=== PATIENT | female | born 1935 | race Caucasian/White ===

== ENCOUNTER 2023-10-10 19:49 | Inpatient (IN) ==
[2023-10-10 21:32] LABS: Basophils # (auto) 0.04 K/uL (0.00-0.20); Basophils % (auto) 0.5 %; Eosinophils # (auto) 0.18 K/uL (0.00-0.50); Eosinophils % (auto) 2.4 %; Hematocrit (blood only) 37.9 % (37.0-47.0); Hemoglobin 12.6 g/dl (12.0-16.0); Immature Granulocytes # (auto) 0.02 K/uL (0.01-0.20); Immature Granulocytes % (auto) 0.3 %; Lymphocytes # (auto) 2.02 K/uL (1.20-3.40); Lymphocytes % (auto) 26.4 %; Mean Corpuscular Hemoglobin 29.2 pg (25.0-34.0); Mean Corpuscular Hgb Conc 33.2 g/dL (32.0-36.0); Mean Corpuscular Volume 87.9 fL (80.0-100.0); Mean Platelet Volume 9.7 fL (9.4-12.4); Monocytes # (auto) 0.58 K/uL (0.11-0.59); Monocytes % (auto) 7.6 %; Neutrophils # (auto) 4.81 K/uL (1.40-6.50); Neutrophils % (auto) 62.8 %; Platelet Count 264 K/uL (130-400); RDW Coefficient of Variation 13.1 % (11.5-14.5); RDW Standard Deviation 42.5 fL (36.4-46.3); Red Blood Count 4.31 M/uL (4.20-5.40); White Blood Count 7.65 K/ul (4.8-10.8)
--- NOTE | 2023-10-10 21:33 | XRay Report ---
SINGLE VIEW CHEST CLINICAL HISTORY: Atypical chest pain. FINDINGS: A PA chest radiograph is obtained. No prior studies are available for comparison at the marilyn e of dictation. There are calcified mediastinal lymph nodes. The heart is enlarged noting atheroscler otic calcification of the thoracic aorta. The pulmonary vasculature is noncongested. There is mild bi basilar scarring/atelectasis. Scattered calcified granulomas are observed. The lungs and pleural spac es are otherwise clear. No pneumothorax is seen. The skeletal structures are osteopenic. The bony tho rax is grossly intact. Advanced arthritic change is noted in the shoulders. IMPRESSION: No acute cardiopulmonary abnormality is identified. ACT 112: Negative or not required by law. Electronically signed by: Nilson Abdi M.D. 10/10/2023 9:31 PM
[2023-10-10 21:51] LABS: Alanine Aminotransferase 12 U/L (7-52); Albumin Globulin Ratio 0.9 (0.9-2); Albumin Level 2.6 gm/dl (3.4-5.0); Alkaline Phosphatase 71 U/L (34-104); Anion Gap 5 (3-11); Aspartate Aminotransferase 20 U/L (13-39); BUN Creatinine Ratio 28.9 (10-20); Bilirubin,Total 0.4 mg/dl (0.2-1.0); Blood Urea Nitrogen 48 mg/dl (6-23); Calcium 8.2 mg/dl (8.6-10.3); Carbon Dioxide 27 mmol/L (21-32); Chloride 99 mmol/L (98-107); Est GFR (African American) 31.8 ml/min; Est GFR (Non-African American) 27.4 ml/min; Glucose 123 mg/dl (70-99(Fasting)); Magnesium 2.4 mg/dl (1.7-2.4); Potassium 3.9 mmol/L (3.5-5.1); Sodium 131 mmol/L (136-145); Total Protein 5.6 gm/dl (6.0-8.3)
[2023-10-10 21:57] LABS: Troponin I High Sensitivity 21.3 pg/ml (0-14)
[2023-10-10 22:12] LABS: INR 0.9 (0.9-1.1); Partial Thromboplastin Ratio 1.1; Partial Thromboplastin Time 31 Seconds (21-31); Prothrombin Time 10.3 Seconds (9.0-12.0)
--- NOTE | 2023-10-10 22:14 | Emergency Department Note ---
Impression & Plan Bilateral edema of lower extremity, Hypertension, Elevated serum creatinine, Acute kidney injury ED Provider Note NAME: BOB STEWART AGE: 88 SEX: F : 1935 ARRIVES VIA: Walk-In INFORMANT: Patient, ED PROVIDER(S): Natanael Disla MD CHIEF COMPLAINT: Leg swelling, outpatient referral MEDICAL DECISION MAKING: Patient presents due to concern for increasing lower extremity edema. Patient has been seen several times in the outpatient setting with worsening weight gain and lower extremity edema even in light of increasing the patient's diuretics. IV was established and blood work was obtained. Patient is a normal white count H&H and platelet count. Kidney function with a BUN and creatinine 40 and 1.6. Initial troponin 21 with an elevated BNP of 191. Patient was ordered IV Lasix. Patient noted to be significantly hypertensive but not extremis. The patient was ordered Nitropaste. Did initially speak with [facility] medicine service but the patient wanted to follow with [facility]. After discussing this with Dr. Michel I did speak with Dr. Lopez and the patient was admitted to the medicine service. Of note the patient did have right shoulder the left lower extremity but this is chronic and has no pain no fall denied any hip pain. Discussion w/ other healthcare providers: Dr. Michel to [facility] medicine service Dr. Lopez without any medicine service Prior /Outside records reviewed: None Differential diagnosis: Reactive airway disease, pneumonia, pneumothorax, COPD, CHF, ACS, pulmonary embolism, musculoskeletal, GERD as well as other pathologies were considered. Diagnostics, as interpreted by me: ECG: Normal sinus rhythm, rate of 68, normal intervals, normal axis no ST elevations T wave flattening in V3. Cardiac monitoring: An order was placed for continuous cardiac monitoring. The monitor shows a rate of 72 with sinus rhythm. Patient was placed on pulse oximetry Medical decision rules: None Imaging studies: I informally interpreted the patient's chest x-ray which does not show obvious pneumonia or pneumothorax with formal report to follow. HPI: Was switched from one to the other and had a doubling of her dosage and believes that she is currently taking 40 mg of torsemide daily. Patient still had worsening lower extremity edema. Patient is accompanied by her daughter she states the same. The patient has had dyspnea on exertion but denies any PND orthopnea. No increase in salt in the diet. Patient was seen in the outpatient setting by her primary care physician and referred here for further evaluation and treatment given the intractable swelling of her lower extremities even in light of increased diuretics and since then the patient had progressively worsening lower extremity edema. The patient did have PAST MEDICAL HISTORY: See Below PAST SURGICAL HISTORY: See Below SOCIAL HISTORY: See Below HOME MEDICATIONS: See Below ALLERGIES: See Below VITALS: See Below PHYSICAL EXAMINATION: GENERAL: NAD, non-toxic. Wearing glasses. BMI of 37 EYE EXAM: Normal conjunctiva. PERRL, no anisocoria and EOM's grossly intact w/o pain. OROPHARYNX: Moist mucus membranes, grossly normal dentition. NECK: Trachea midline, no stridor. Supple, no nuchal rigidity, no adenopathy, non-tender. No signs of meningismus. FROM of the neck with good chin to chest and neck extension. LUNGS: Clear to auscultation. Normal chest wall mechanics. HEART: NSR, no MRG. ABDOMEN: Abdomen soft, non-tender, no masses, no rebound or guarding. BACK: No CVA TTP. SKIN: No rashes and no bruising. UPPER EXTREMITIES: Upper extremities are grossly normal. LOWER EXTREMITIES: Grossly normal, 3+ pitting edema without any calf pain or erythema, right lower extremity slightly shorter compared to the left. NEURO EXAM: A&O x3, cranial nerves II-XII grossly intact, normal speech, moves all 4 extremities. Past Med/Surg History Medical History Hypertension Surgical History History of tonsillectomy Social History Smoking Status: Never smoker Hx Alcohol Use: No Hx Substance Use: No Preferred Language: Montenegrin Communication Ability: Effective Quarrying Manager Required: No Beliefs That Will Affect Care: None Current Living Situation: Spouse Feels Safe at Home: Yes Assistive Devices: Walker Allergies Allergies Allergy/AdvReac Type Severity Reaction Status Date / Time cephalexin Allergy Unknown Verified 10/14/23 09:34 Home Meds Home Medications Medication Instructions Recorded Confirmed Vitamin D3 5,000 unit PO DAILY 10/10/23 10/11/23 aspirin 81 mg PO DAILY 10/10/23 10/10/23 citalopram 20 mg tablet 20 mg PO DAILY 10/10/23 10/10/23 losartan 100 1 tab PO DAILY 10/10/23 10/10/23 mg-hydrochlorothiazide 25 mg tablet torsemide 20 mg tablet 40 mg PO DAILY 10/10/23 10/10/23 vitamin B complex 1 tab PO DAILY 10/10/23 10/10/23 Results & Data (ED) Vital Signs Vital Signs - 24 hr 10/10/23 19:58 Temperature 36.3 C L Temperature Source Temporal Artery Scan Pulse Rate 72 Respiratory Rate 18 Respiratory Effort / Characteristics Non-Labored Spontaneous Respiratory Depth Normal Respiratory Pattern Regular Blood Pressure 204/111 H Blood Pressure Mean 142 Blood Pressure Position Sitting Pulse Oximetry 97 Oxygen Delivery Method Room Air Sepsis Recent Fever Within 48 Hours No Sepsis New/Unexplained Change in Mental Status N/A Sepsis Action Taken by Nursing No Action Required Home Medications Current Medication List: was personally reviewed by me Laboratory Data Attestation: I reviewed the patient's lab results. 10/15/23 06:27 10/15/23 06:27 Lab Results 10/10/23 10/10/23 Range/Units 21:15 23:00 WBC 7.65 (4.8-10.8) K/ul RBC 4.31 (4.20-5.40) M/uL Hgb 12.6 (12.0-16.0) g/dl Hct 37.9 (37.0-47.0) % MCV 87.9 (80.0-100.0) fL MCH 29.2 (25.0-34.0) pg MCHC 33.2 (32.0-36.0) g/dL RDW Std Deviation 42.5 (36.4-46.3) fL RDW Coeff of Maricel 13.1 (11.5-14.5) % Plt Count 264 (130-400) K/uL MPV 9.7 (9.4-12.4) fL Immature Gran % (Auto) 0.3 % Neut % (Auto) 62.8 % Lymph % (Auto) 26.4 % Rowan % (Auto) 7.6 % Eos % (Auto) 2.4 % Baso % (Auto) 0.5 % Neut # (Auto) 4.81 (1.40-6.50) K/uL Lymph # (Auto) 2.02 (1.20-3.40) K/uL Rowan # (Auto) 0.58 (0.11-0.59) K/uL Eos # (Auto) 0.18 (0.00-0.50) K/uL Baso # (Auto) 0.04 (0.00-0.20) K/uL Immature Gran # (Auto) 0.02 (0.01-0.20) K/uL PT 10.3 (9.0-12.0) Seconds INR 0.9 (0.9-1.1) APTT 31 (21-31) Seconds PTT Ratio 1.1 Sodium 131 L (136-145) mmol/L Potassium 3.9 (3.5-5.1) mmol/L Chloride 99 (98-107) mmol/L Carbon Dioxide 27 (21-32) mmol/L Anion Gap 5 (3-11) BUN 48 H (6-23) mg/dl Creatinine 1.66 H (0.6-1.2) mg/dl Est Cr Clr Drug Dosing Not Reportable Est GFR ( Amer) 31.8 ml/min Est GFR (Non-Af Amer) 27.4 ml/min BUN/Creatinine Ratio 28.9 H (10-20) Glucose 123 H (70-99(Fasting)) mg/dl Calcium 8.2 L (8.6-10.3) mg/dl Magnesium 2.4 (1.7-2.4) mg/dl Total Bilirubin 0.4 (0.2-1.0) mg/dl AST 20 (13-39) U/L ALT 12 (7-52) U/L Alkaline Phosphatase 71 (34-104) U/L Troponin I High Sens 21.3 H 20.6 H (0-14) pg/ml B-Natriuretic Peptide 191 H (0-100) pg/ml Total Protein 5.6 L (6.0-8.3) gm/dl Albumin 2.6 L (3.4-5.0) gm/dl Globulin 3.0 (2.5-4.0) gm/dl Albumin/Globulin Ratio 0.9 (0.9-2) TSH 3.218 (0.300-4.500) uIu/ml Administered Medications Aspirin (Aspirin 81 Mg Ectab) 81 mg PO DAILY MARCOS Stop: 11/10/23 08:59 Last Admin: 10/15/23 08:18 Dose: 81 mg Documented By: Admin: 10/14/23 08:23 Dose: 81 mg Documented By: Admin: 10/13/23 08:07 Dose: 81 mg Documented By: Admin: 10/12/23 09:18 Dose: 81 mg Documented By: Admin: 10/11/23 08:55 Dose: 81 mg Documented By: MARK Citalopram Hydrobromide (Citalopram 20 Mg Tab) 20 mg PO DAILY MARCOS Stop: 11/10/23 08:59 Last Admin: 10/15/23 08:18 Dose: 20 mg Documented By: Admin: 10/14/23 08:23 Dose: 20 mg Documented By: Admin: 10/13/23 08:07 Dose: 20 mg Documented By: Admin: 10/12/23 09:18 Dose: 20 mg Documented By: Admin: 10/11/23 08:55 Dose: 20 mg Documented By: MARK Heparin Sodium (Porcine) (Heparin Sod 5,000 Unit/0.5 Ml Vial) 5,000 units SQ Q12 MARCOS Stop: 11/10/23 08:59 Last Admin: 10/15/23 08:19 Dose: 5,000 units Documented By: Admin: 10/14/23 20:21 Dose: 5,000 units Documented By: Admin: 10/14/23 08:24 Dose: 5,000 units Documented By: Admin: 10/13/23 20:41 Dose: 5,000 units Documented By: Admin: 10/13/23 08:09 Dose: 5,000 units Documented By: Admin: 10/12/23 21:52 Dose: 5,000 units Documented By: Admin: 10/12/23 09:18 Dose: 5,000 units Documented By: Admin: 10/11/23 20:50 Dose: 5,000 units Documented By: Admin: 10/11/23 08:54 Dose: 5,000 units Documented By: MARK Hydralazine HCl (Hydralazine Hcl 25 Mg Tab) 25 mg PO TID MARCOS Stop: 11/13/23 13:59 Last Admin: 10/15/23 08:19 Dose: 25 mg Documented By: Admin: 10/14/23 20:21 Dose: 25 mg Documented By: Admin: 10/14/23 14:27 Dose: 25 mg Documented By: MAYELA Labetalol HCl (Labetalol Hcl 200 Mg Tab) 200 mg PO BID MARCOS Stop: 11/14/23 08:59 Last Admin: 10/15/23 09:30 Dose: Not Given Documented By: MAYELA Pantoprazole Sodium (Pantoprazole 40 Mg Tab) 40 mg PO QAM [facility] Stop: 11/11/23 10:59 Last Admin: 10/15/23 08:18 Dose: 40 mg Documented By: Admin: 10/14/23 08:23 Dose: 40 mg Documented By: Admin: 10/13/23 08:06 Dose: 40 mg Documented By: Admin: 10/12/23 12:26 Dose: 40 mg Documented By: ROSA Prednisone (Prednisone 20 Mg Tab) 20 mg PO TID [facility] Stop: 11/12/23 13:59 Last Admin: 10/15/23 08:18 Dose: 20 mg Documented By: Admin: 10/14/23 20:21 Dose: 20 mg Documented By: Admin: 10/14/23 14:27 Dose: 20 mg Documented By: Admin: 10/14/23 08:24 Dose: 20 mg Documented By: Admin: 10/13/23 21:38 Dose: 20 mg Documented By: Admin: 10/13/23 13:58 Dose: Not Given Documented By: MAYELA Discontinued Medications Acetaminophen (Acetaminophen 500 Mg Tab) 1,000 mg PO NOW STA Stop: 10/11/23 00:58 Last Admin: 10/11/23 01:06 Dose: 1,000 mg Documented By: MEAGANS Furosemide (Furosemide 40 Mg/4 Ml Vial) 40 mg IV ONE ONE Stop: 10/10/23 22:41 Last Admin: 10/10/23 22:54 Dose: 40 mg Documented By: SERENA Furosemide (Furosemide 40 Mg/4 Ml Vial) 40 mg IV BID17 [facility] Stop: 11/10/23 08:59 Last Admin: 10/11/23 18:57 Dose: Not Given Documented By: Admin: 10/11/23 08:55 Dose: 40 mg Documented By: MARK Furosemide (Furosemide 40 Mg/4 Ml Vial) 80 mg IV BID17 [facility] Stop: 11/11/23 08:59 Last Admin: 10/12/23 17:12 Dose: 80 mg Documented By: Admin: 10/12/23 09:18 Dose: 80 mg Documented By: ROSA Furosemide (Furosemide 40 Mg/4 Ml Vial) 40 mg IV ONE ONE Stop: 10/11/23 18:13 Last Admin: 10/11/23 18:58 Dose: 40 mg Documented By: NAVDEEP Furosemide (Furosemide 40 Mg/4 Ml Vial) 80 mg IV DAILY [facility] Stop: 11/12/23 15:59 Last Admin: 10/15/23 08:22 Dose: 80 mg Documented By: Admin: 10/14/23 08:29 Dose: 80 mg Documented By: Admin: 10/13/23 18:19 Dose: 80 mg Documented By: MAYELA Hydralazine HCl (Hydralazine 10 Mg Tab) 10 mg PO NOW STA Stop: 10/11/23 00:58 Last Admin: 10/11/23 02:00 Dose: 10 mg Documented By: KEVIN Hydralazine HCl (Hydralazine Hcl 25 Mg Tab) 25 mg PO TID PRN PRN Reason: hypertention Stop: 11/10/23 08:59 Last Admin: 10/13/23 21:44 Dose: 25 mg Documented By: KAYLIN Hydralazine HCl (Hydralazine Hcl 20 Mg/Ml Vial) 10 mg IV NOW STA Stop: 10/11/23 03:50 Last Admin: 10/11/23 03:55 Dose: 10 mg Documented By: ANGIE Calcium Gluconate () 1,000 mg in 60 mls @ 240 mls/hr IV NOW STA Stop: 10/10/23 22:55 Last Infusion: 10/10/23 23:18 Dose: Infused Documented By: Admin: 10/10/23 22:54 Dose: 240 mls/hr Documented By: SERENA Labetalol HCl (Labetalol Hcl 100 Mg Tab) 100 mg PO BID [facility] Stop: 11/13/23 10:29 Last Admin: 10/15/23 08:18 Dose: 100 mg Documented By: Admin: 10/14/23 20:22 Dose: 100 mg Documented By: Admin: 10/14/23 10:46 Dose: 100 mg Documented By: MAYELA Losartan Potassium (Losartan Potassium 50 Mg Tab) 100 mg PO QAM [facility] Stop: 11/10/23 08:59 Last Admin: 10/14/23 08:23 Dose: 100 mg Documented By: Admin: 10/13/23 08:07 Dose: 100 mg Documented By: Admin: 10/12/23 09:18 Dose: 100 mg Documented By: Admin: 10/11/23 08:55 Dose: 100 mg Documented By: MARK Miscellaneous Information (Patient's Allergy Info Needs Entered) 1 each N/A NOW STA Stop: 10/11/23 03:52 Last Admin: 10/11/23 05:02 Dose: Not Given Documented By: ANGIE Nitroglycerin (Nitroglycerin 2% Ointment 30gm Tube) 0.5 inch EXT NOW ONE Stop: 10/10/23 22:41 Last Admin: 10/10/23 22:54 Dose: 0.5 inch Documented By: SERENA Ondansetron HCl (Ondansetron Inj 2 Mg/Ml 2 Ml Vial) Confirm Administered Dose 4 mg .ROUTE .STK-MED ONE Stop: 10/11/23 04:48 Last Admin: 10/11/23 04:52 Dose: 4 mg Documented By: ANGIE Potassium Chloride (Potassium Chloride Crtab 20 Meq Tabcr) 40 meq PO NOW STA Stop: 10/11/23 04:50 Last Admin: 10/11/23 08:55 Dose: 40 meq Documented By: MARK Prednisone (Prednisone 20 Mg Tab) 40 mg PO DAILY [facility] Stop: 11/11/23 10:59 Last Admin: 10/13/23 08:07 Dose: 40 mg Documented By: Admin: 10/12/23 12:26 Dose: 40 mg Documented By: ROSA Imaging Data Radiologist's Impression: Chest X-Ray 10/10/23 20:04 SINGLE VIEW CHEST CLINICAL HISTORY: Atypical chest pain. FINDINGS: A PA chest radiograph is obtained. No prior studies are available for comparison at the time of dictation. There are calcified mediastinal lymph nodes. The heart is enlarged noting atherosclerotic calcification of the thoracic aorta. The pulmonary vasculature is noncongested. There is mild bibasilar scarring/atelectasis. Scattered calcified granulomas are observed. The lungs and pleural spaces are otherwise clear. No pneumothorax is seen. The skeletal structures are osteopenic. The bony thorax is grossly intact. Advanced arthritic change is noted in the shoulders. IMPRESSION: No acute cardiopulmonary abnormality is identified. ACT 112: Negative or not required by law. Electronically signed by: Nilson Abdi M.D. 10/10/2023 9:31 PM Discharge Plan Visit Data Chief Complaint: Swelling/Edema to Extremity Stated Complaint: FLUID RETENTION ED Provider: Natanael Disla Discharge Problem: Bilateral edema of lower extremity, Hypertension, Elevated serum creatinine, Acute kidney injury Patient Disposition: Admitted As Inpatient Discharge Instructions Interventions: ED Discharge Assessment Last Done: 10/11/23 03:12 Discharge Problem: Hypertension Qualifiers: Hypertension type: unspecified Qualified Code(s): I10 - Essential (primary) hypertension
[2023-10-10] MEDS: CALCIUM GLUCONATE 1,000 MG/60 ML BAG IV STA (22:54)
[2023-10-10] MEDS: NITROGLYCERIN 2% OINTMENT 30GM TUBE EXT ONE (22:54)
[2023-10-10] MEDS: FUROSEMIDE 40 MG/4 ML VIAL IV ONE (22:54)
[2023-10-10 23:35] LABS: Troponin I High Sensitivity 20.6 pg/ml (0-14)
--- NOTE | 2023-10-11 01:05 | History & Physical Report ---
Date of Service October 11, 2023 Assessment & Plan (1) Hypertension: Plan: Patient with markedly elevated blood pressure. She is compliant with her home medications - HCTZ, Losartan and most recently Torsemide. No prior visits to compare blood pressure trend but she has been well over 200mmHg since being here. No report of chest pain, SOB, abdominal pain, numbness/weakness. She developed a ROMERO after placement of Nitro. Uncertain if patient's blood pressure is so poorly controlled at baseline. More likely an acute changes. -Admit to medical with telemetry -Continue home Losartan 100mg po daily -Will hold HCTZ -Lasix 40mg IV BID -Hydralazine PRN -Check UA (2) Edema: Plan: Patient with anasarca - edema of legs, thighs, abdominal wall as well as swelling of her hands and face. She has low serum Albumin at 2.6. Cr=1.66, unknown baseline -Check UA - ?nephrotic syndrome causing patient's anasarca, markedly elevated blood pressure and low serum protein and albumin? -Check urine protein and Cr -Check lipid panel -Check TSH -Check 2D echo -Diuresis with Lasix 40mg IV BID - may need to increase this -Monitor I/Os -Bladder scan and straight cath as needed -Monitor daily weights History of Present Illness Chief Complaint: swelling Primary Care Provider: NO PCP Catrina Alvarez is an 88yo female with history of hypertension presenting with progressive edema unresponsive to PO diuretic. Patient reports that her symptoms began around 09/26/23 with some swelling of her feet and ankles. She had a prescription for Lasix PRN which, prior to this, she did not use routinely. She saw her PCP for this complaint on 09/30/22 and start ed taking her Lasix daily for the swelling but did not note an increase in urine output or a decrease in swelling. She followed up with her PCP 1 week later and her diuretic was changed to Torsemide 20mg po daily. She did not notice any improvement so she saw her PCP again on 10/08/23 and was given a dose of IM Lasix. She still has not had an increase in UOP and her edema has persisted. She has gained approximately 16# since 09/26/23. She does note that her weight has been stable rather than increasing over the last several days. She reports some TRACY as well as edema. Otherwise denies fever, chills, cough, chest pain, palpitations or orthopnea. She feels severe edema in her legs as well as thighs, arms, hands and face. She reports foamy urine over the last several days as well. She sometimes has to strain to urinate and has some incontinence at night. In the ER she is afebrile, hypertensive Home Medications Medication Instructions Recorded Confirmed Type Vitamin D3 5,000 unit 10/10/23 History aspirin 81 mg PO DAILY 10/10/23 10/10/23 History citalopram 20 mg tablet 20 mg PO DAILY 10/10/23 10/10/23 History losartan 100 1 tab PO DAILY 10/10/23 10/10/23 History mg-hydrochlorothiazide 25 mg tablet torsemide 20 mg tablet 40 mg PO DAILY 10/10/23 10/10/23 History vitamin B complex 1 tab PO DAILY 10/10/23 10/10/23 History Past Med/Surg History Medical History (Updated 10/11/23 @ 04:02 by Melita Lopez DO) Hypertension Surgical History (Updated 10/11/23 @ 04:00 by Melita Lopez DO) History of tonsillectomy Social History Smoking Status: Never smoker Hx Alcohol Use: No Hx Substance Use: No Preferred Language: Romanian Communication Ability: Effective Seat Mender Required: No Beliefs That Will Affect Care: None Current Living Situation: Spouse Other Information That Helps Us Care for You: No Feels Safe at Home: Yes Safety Concerns: Feels Safe At This Time Assistive Devices: Walker Review of Systems Review of Systems: All systems reviewed & are unremarkable except as noted in HPI & below Physical Exam Physical Exam: General: patient resting comfortably, NAD, non-toxic in appearance, AA&O x 4 Skin: warm, dry, intact, no rashes or lesions HEENT: NC/AT, PERRL, EOMI, anicteric sclera, conjunctiva without injection, external ear normal to inspection and nontender, nares patent, moist mucus membranes, dentition intact, no oropharyngeal lesions, neck supple, trachea midline, no LAD, no thyromegaly, +JVD noted bilaterally Heart: +S1/S2, regular, no m/r/g Lungs: equal air entry bilaterally, no rales/rhonchi/wheezes Abd: +BS, soft, NT/ND, no masses/organomegaly/ascites, abdominal hernia - nontender Ext: warm, 2+ pulses in UE/LE bilaterally, no clubbing/cyanosis - 3+ pitting edema of hands, thighs, abdominal wall Neuro: nonfocal, patient AA&O x 4, speech intact, no facial droop, moving all extremities on command with equal strength 5/5 Results & Data Results & Data Vital Signs (Past 12 Hours) Vital Signs Temp Pulse Pulse Resp BP BP Pulse Ox 10/10/23 23:40 67 11 L 96 10/10/23 23:30 69 13 210/99 H 97 10/10/23 23:30 69 13 97 10/10/23 23:24 70 21 233/100 H 98 10/10/23 23:24 70 21 98 10/10/23 23:20 66 14 96 10/10/23 23:10 66 12 97 10/10/23 23:00 80 15 218/106 H 96 10/10/23 23:00 80 15 96 10/10/23 22:50 66 13 98 10/10/23 22:43 66 18 96 10/10/23 22:43 65 18 228/107 H 97 10/10/23 22:42 228/107 H 10/10/23 22:42 72 18 97 10/10/23 22:42 66 10/10/23 22:41 218/101 H 10/10/23 22:41 72 14 10/10/23 19:58 36.3 C L 72 18 204/111 H 97 O2 Del Method 10/10/23 23:40 10/10/23 23:30 10/10/23 23:30 10/10/23 23:24 10/10/23 23:24 10/10/23 23:20 10/10/23 23:10 10/10/23 23:00 10/10/23 23:00 10/10/23 22:50 10/10/23 22:43 Room Air 10/10/23 22:43 Room Air 10/10/23 22:42 10/10/23 22:42 10/10/23 22:42 10/10/23 22:41 10/10/23 22:41 10/10/23 19:58 Room Air Laboratory Results Laboratory Results WBC 7.65 K/ul (4.8-10.8) 10/10/23 21:15 RBC 4.31 M/uL (4.20-5.40) 10/10/23 21:15 Hgb 12.6 g/dl (12.0-16.0) 10/10/23 21:15 Hct 37.9 % (37.0-47.0) 10/10/23 21:15 MCV 87.9 fL (80.0-100.0) 10/10/23 21:15 MCH 29.2 pg (25.0-34.0) 10/10/23 21:15 MCHC 33.2 g/dL (32.0-36.0) 10/10/23:15 RDW Std Deviation 42.5 fL (36.4-46.3) 10/10/23 21:15 RDW Coeff of Maricel 13.1 % (11.5-14.5) 10/10/23 21:15 Plt Count 264 K/uL (130-400) 10/10/23 21:15 MPV 9.7 fL (9.4-12.4) 10/10/23 21:15 Immature Gran % (Auto) 0.3 % 10/10/23 21:15 Neut % (Auto) 62.8 % 10/10/23 21:15 Lymph % (Auto) 26.4 % 10/10/23 21:15 [place] % (Auto) 7.6 % 10/10/23 21:15 Eos % (Auto) 2.4 % 10/10/23:15 Baso % (Auto) 0.5 % 10/10/23:15 Neut # (Auto) 4.81 K/uL (1.40-6.50) 10/10/23 21:15 Lymph # (Auto) 2.02 K/uL (1.20-3.40) 10/10/23 21:15 [place] # (Auto) 0.58 K/uL (0.11-0.59) 10/10/23 21:15 Eos # (Auto) 0.18 K/uL (0.00-0.50) 10/10/23 21:15 Baso # (Auto) 0.04 K/uL (0.00-0.20) 10/10/23 21:15 Immature Gran # (Auto) 0.02 K/uL (0.01-0.20) 10/10/23 21:15 PT 10.3 Seconds (9.0-12.0) 10/10/23 21:15 INR 0.9 (0.9-1.1) 10/10/23 21:15 APTT 31 Seconds (21-31) 10/10/23 21:15 PTT Ratio 1.1 10/10/23 21:15 Sodium 131 mmol/L (136-145) L 10/10/23 21:15 Potassium 3.9 mmol/L (3.5-5.1) 10/10/23 21:15 Chloride 99 mmol/L (98-107) 10/10/23 21:15 Carbon Dioxide 27 mmol/L (21-32) 10/10/23 21:15 Anion Gap 5 (3-11) 10/10/23 21:15 BUN 48 mg/dl (6-23) H 10/10/23 21:15 Creatinine 1.66 mg/dl (0.6-1.2) H 10/10/23 21:15 Est Cr Clr Drug Dosing Not Reportable 10/10/23 21:15 Est GFR ( Amer) 31.8 ml/min 10/10/23 21:15 Est GFR (Non-Af Amer) 27.4 ml/min 10/10/23 21:15 BUN/Creatinine Ratio 28.9 (10-20) H 10/10/23 21:15 Glucose 123 mg/dl (70-99(Fasting)) H 10/10/23 21:15 Calcium 8.2 mg/dl (8.6-10.3) L 10/10/23 21:15 Magnesium 2.4 mg/dl (1.7-2.4) 10/10/23 21:15 Total Bilirubin 0.4 mg/dl (0.2-1.0) 10/10/23 21:15 AST 20 U/L (13-39) 10/10/23 21:15 ALT 12 U/L (7-52) 10/10/23 21:15 Alkaline Phosphatase 71 U/L (34-104) 10/10/23 21:15 Troponin I High Sens 20.6 pg/ml (0-14) H 10/10/23 23:00 B-Natriuretic Peptide 191 pg/ml (0-100) H 10/10/23 21:15 Total Protein 5.6 gm/dl (6.0-8.3) L 10/10/23 21:15 Albumin 2.6 gm/dl (3.4-5.0) L 10/10/23 21:15 Globulin 3.0 gm/dl (2.5-4.0) 10/10/23 21:15 Albumin/Globulin Ratio 0.9 (0.9-2) 10/10/23 21:15 TSH 3.218 uIu/ml (0.300-4.500) 10/10/23 23:00 Impressions Chest X-Ray 10/10/23 20:04 SINGLE VIEW CHEST CLINICAL HISTORY: Atypical chest pain. FINDINGS: A PA chest radiograph is obtained. No prior studies are available for comparison at the time of dictation. There are calcified mediastinal lymph nodes. The heart is enlarged noting atherosclerotic calcification of the thoracic aorta. The pulmonary vasculature is noncongested. There is mild bibasilar scarring/atelectasis. Scattered calcified granulomas are observed. The lungs and pleural spaces are otherwise clear. No pneumothorax is seen. The skeletal structures are osteopenic. The bony thorax is grossly intact. Advanced arthritic change is noted in the shoulders. IMPRESSION: No acute cardiopulmonary abnormality is identified. ACT 112: Negative or not required by law. Electronically signed by: Nilson Abdi M.D. 10/10/2023 9:31 PM PG Care Time/CCT Total # of Minutes Spent Total Time Spent with Patient: Total time spent is greater than 50% in coordination of care (as documented) at patient's floor/unit and/or counseling patient: Coding Level of Care Code 50744 INT INP/OBS CARE 2/55MIN Diagnoses Hypertension I10 Edema R60.9
[2023-10-11] MEDS: ACETAMINOPHEN 500 MG TAB PO STA (01:06)
[2023-10-11] MEDS: hydrALAZINE 10 MG TAB PO STA (02:00)
[2023-10-11 03:55] LABS: Thyroid Stimulating Hormone 3.218 uIu/ml (0.300-4.500)
[2023-10-11] MEDS: hydrALAZINE HCL 20 MG/ML VIAL IV STA (03:55)
[2023-10-11 04:39] LABS: BUN Creatinine Ratio 32.7 (10-20); Calcium 8.2 mg/dl (8.6-10.3); Chol HDL Ratio 3.8 (0-5); Creatinine Clr Calc Pharmacy 28.7 ml/min; Est GFR (African American) 34.3 ml/min; Est GFR (Non-African American) 29.6 ml/min; Potassium 3.4 mmol/L (3.5-5.1)
[2023-10-11] MEDS ORDERED: ONDANSETRON INJ 2 MG/ML 2 ML VIAL IV PRN (04:42)
[2023-10-11 04:47] LABS: Appearance Urine Clear (Clear); Bacteria Urine Automated Negative (Negative); Bilirubin Urine Negative (Negative); Blood Urine 2+ (Negative); Color Urine Yellow; Epithelial Cell Urine Auto 20-30 /lpf (0-5); Glucose Urine UA Negative (Negative); Ketones Urine Negative (Negative); Leukocyte Esterase Urine 1+ (Negative); Nitrite Urine Negative (Negative); Protein Urine 4+ (Negative); RBC Urine Automated >30 /hpf (0-4); Urobilinogen Urine Negative (Negative); pH Urine 6.5 (4.5-7.5)
[2023-10-11] MEDS: ONDANSETRON INJ 2 MG/ML 2 ML VIAL ONE (04:52)
[2023-10-11] MEDS: Patient's ALLERGY Info needs ENTERED STA (05:02)
[2023-10-11] MEDS: HEPARIN SOD 5,000 UNIT/0.5 ML VIAL SQ SCH (08:54)
[2023-10-11] MEDS: CITALOPRAM 20 MG TAB PO SCH (08:55)
[2023-10-11] MEDS: LOSARTAN POTASSIUM 50 MG TAB PO SCH (08:55)
[2023-10-11] MEDS: ASPIRIN 81 MG ECTAB PO SCH (08:55)
[2023-10-11] MEDS: POTASSIUM CHLORIDE CRTAB 20 MEQ TABCR PO STA (08:55)
[2023-10-11] MEDS: FUROSEMIDE 40 MG/4 ML VIAL IV SCH (08:55)
--- NOTE | 2023-10-11 11:48 | Electrocardiogram Report ---
Test Reason : Blood Pressure : / mmHG Vent. Rate : 068 BPM Atrial Rate : 068 BPM P-R Int : 158 ms QRS Dur : 076 ms QT Int : 390 ms P-R-T Axes : -25 010 030 degrees QTc Int : 414 ms Normal sinus rhythm Poor R wave progression, consider anterior FL vs. lead placement vs. LVH Abnormal ECG No previous ECGs available Confirmed by Jeff Jose ([id number]) on 10/11/2023 11:47:47 AM Referred By: REFERRED SELF Confirmed By:Jeff Jose
--- NOTE | 2023-10-11 12:04 | Ultrasound Report ---
ULTRASOUND KIDNEYS AND BLADDER CLINICAL HISTORY: Nephrotic syndrome. COMPARISON STUDY: No prior TECHNIQUE: Real-time, grayscale, and color flow sonography of the kidneys and bladder is performed. I mages are reviewed in the transverse and longitudinal planes. FINDINGS: Kidneys: The kidneys demonstrate mild cortical atrophy. Echotexture is normal. The right kidney measu res 10.3 cm in length and the left kidney measures 10.4 cm in length. There is no hydronephrosis. No shadowing renal calculi are identified. There is no sonographic evidence of contour deforming renal mass lesion. No perinephric fluid is identified. Bladder: The bladder is largely decompressed and grossly unremarkable. Bilateral ureteral jets were s een. IMPRESSION: 1. The kidneys demonstrated cortical atrophy and are without hydronephrosis. 2. The bladder is decompressed and grossly unremarkable. ACT 112: Negative or not required by law. Electronically signed by: Nilsno Abdi M.D. 10/11/2023 12:03 PM
--- OUTSIDE RECORDS SUMMARY | 2023-10-11 13:11 | External Medical Summary | Continuity of Care Document ---
Author Name Unknown Organization [facility] Address [address], [place] [address] Phone [phone] Problems Active Problems Provider Date Essential hypertension Dawson Almodovar DO Onset: 02/19/2018 Osteoarthritis Onset: 0 Bladder muscle dysfunction - overactive Onset: Gastroesophageal reflux disease Dawson Almodovar DO Onset: 02/19/2018 Social History Type Date Description Comments Sex Unknown Tobacco Use Reviewed: 09/06/23 Never Smoked Cigarette s Smoking Status Reviewed: 10/10/23 Never Smoked Cigaret pretty Tobacco Use Reviewed: 09/06/23 Never Smoked Cigars Tobacco Use Reviewed: 09/06/23 Never Smoked A Pipe Smokeless Tobacco 09/06/2023 Never Used Smokeless To bacco ETOH Use Denies alcohol use Recreational Drug Use Denies Drug Use Allergies and adverse reactions Active Allergies Criticality Reaction | Severity Comments Date Cephalexin Unable to assess criticality 03/20/2021 Inactive Allergies NKDA Unable to assess criticality 02/19/2018 Medications Active Medications SIG Qnty Indications Order ing Provider Date [id number] Tablets 2 tablet by mouth daily for next 2 days 30tabs R60.0 THADDEUS Ledbetter 10/02/2023 Multi + [place]-3 Adult GummiesChewtabs 1 by mouth every day Dawson Almodovar DO 08/08/2022 Vitamin B ComplexTablets 1 by mouth every day Dawson Almodovar DO 08/08/2022 Losartan Potassium/Hydrochlorothi [id number] Tablets 1 by mouth every day 90tabs I10 Dawson Almodovar DO 03/21/2020 Juice Plus Fibre` Dawson Almodovar DO 02/19/2018 Aspirin Adult Low [id number] Tablets DR 1 by mouth every day Unknown Citalopram [id number] Tablets 1 by mouth every day 90tabs F41.1 Dawson Almodovar, DO Vitamin D3 Maximum [id number] (5000 Ut) Capsules 1 by mouth once daily Unknown Medications Administered in Office Medication SIG Qnty Indications Ordering Provider Date Injection Furosemide To 20 M G (Lizette Oconnell MD)Injection THADDEUS Ferrer 10/08/2023 Immunizations CPT Code Status Date Vaccine Lot # [id number] Given 07/14/2009 Pneumococcal Vaccine/Pneu movax 23 30385 Refused 09/06/2023 Sarscov2 Vaccin e 50 mcg/0.5 ML For Im Use 12 Yrs And Older 14017 Refused 09/06/2023 Pneumococcal Conjugate-Pr evnar 20 66140 Refused 10/19/2022 Shingrix 96611 Refused 08/08/2022 Pneumococcal Conjugate-Pr evnar 20 16405 Refused 08/08/2022 Influenza Vac, Split, Preservative Free High Dose Age 65 & > 63881 Refused 04/20/2022 Moderna Sars-Co v-2 (Cov-19) vacc,100 mcg/ 0.5 mL 12Y+EMR Doc Only 27461 Refused 10/16/2021 Influenza Virus Vaccine, Quadrivalent (Cciiv4), Derived From Cell 79862 Refused 10/16/2021 Shingrix 03519 Refused 10/16/2021 Pneumococcal Conjugate-Pr evnar 13 61302 Refused 03/20/2021 Pfizer Sars-Cov -2 (Cov-19) vacc 30mcg/0.3ML 12Y+ EMR Doc Only 01486 Refused 04/17/2019 Influenza Vacci ne, Inactivated, Subunit, Adjuvanted, For Intrmusc 07113 Refused 01/29/2019 Tdap (Tetanus, diphtheria & acel. pertussis) Adacel or Boostrix 14069 Refused 01/29/2019 Pneumococcal Conjugate-Pr evnar 13 Vital Signs Date Vital Result Comment 10/10/2023 3:42pm BP Systolic 180 mmHg BP Diastolic 100 mmHg Body Temperature 97.8 F Heart Rate 72 /min Respiratory Rate 18 /min Weight 221.31 lb Weight 100.387 kg O2 % BldC Oximetry 99 % 10/08/2023 3:03pm BP Systolic 180 mmHg BP Diastolic 90 mmHg BP Systolic Recheck 156 mmHg BP Diastolic Recheck 86 mmHg Body Temperature 98.1 F Heart Rate 76 /min Respiratory Rate 20 /min Weight 221.00 lb Weight 100.246 kg O2 % BldC Oximetry 98 % Results Test Acquired Date Facility Test Result H/L Range N ote Laboratory test finding 10/02/2023 [facility] [address] [place] [address] [phone] BNP 140.0 pg/mL High 0.0-100.0 BMP 10/02/2023 [facility] [address] [place] [address] [phone] Glucose 119 mg/dL High 70-110 1 BUN 45 mg/dL High 6-25 Creatinine 1.2 mg/dL 0.5-1.2 Sodium 136 mEq/L 135-145 Potassium 4.7 mEq/L 3.5-5.0 Chloride 102 mEq/L 95-107 Co-2 28 mEq/L 24-31 Calcium 8.6 mg/dL 8.5-10.6 GFR 45 ML/MIN/1.73SQM Low >60 BMP 09/05/2023 [facility] [address] [place] [address] [phone] Glucose 88 mg/dL 70-110 BUN 23 mg/dL 6-25 Creatinine 0.8 mg/dL 0.5-1.2 Sodium 138 mEq/L 135-145 Potassium 4.1 mEq/L 3.5-5.0 Chloride 100 mEq/L 95-107 Co-2 29 mEq/L 24-31 Calcium 9.4 mg/dL 8.5-10.6 GFR 72 ML/MIN/1.73SQM >60 1 STAT RESULTS CALLED AND FAXED TO GALILEO Berman AT 9:48 ON 10/03/23 WK Procedures Date Code Description Status 10/08/2023 68745 Electrocardiogram Complete C ompleted 10/08/2023 J1940 Injection Furosemide To 20 M G (Lizette Oconnell MD) Completed 10/02/2023 73096 Venipuncture Routine Complet ed 09/30/2023 01702 Manual [employer] Operating Engineer 1/> Area 15 Min Each Region Completed 09/30/2023 38202 Therapy Proc, Neuromuscular Reeducation Of Movement Completed 09/30/2023 84877 Therapy Proc 1/> Area 15Min Ea Completed 09/30/2023 96562 Hot/Cold Pack Completed 09/27/2023 58636 Therapy Proc 1/> Area 15Min Ea Completed 09/27/2023 02906 Hot/Cold Pack Completed 09/27/2023 44495 Therapy Proc, Neuromuscular Reeducation Of Movement Completed 09/27/2023 76727 Manual [employer] Operating Engineer 1/> Area 15 Min Each Region Completed 09/27/2023 16864 Therapeutic Activities Direc t, Each 15 Minutes Completed 09/24/2023 76973 Therapeutic Activities Direc t, Each 15 Minutes Completed 09/24/2023 89721 Manual [employer] Operating Engineer 1/> Area 15 Min Each Region Completed 09/24/2023 43159 Therapy Proc, Neuromuscular Reeducation Of Movement Completed 09/24/2023 65400 Therapy Proc 1/> Area 15Min Ea Completed 09/24/2023 08564 Hot/Cold Pack Completed 09/20/2023 97374 Manual Ship [employer] Operating Engineer 1/> Area 15 Min Each Region Completed 09/20/2023 76643 Hot/Cold Pack Completed 09/20/2023 59309 Therapy Proc 1/> Area 15Min Ea Completed 09/20/2023 22723 Therapy Proc, Neuromuscular Reeducation Of Movement Completed 09/20/2023 66443 Therapeutic Activities Direc t, Each 15 Minutes Completed 09/16/2023 92675 Therapeutic Activities Direc t, Each 15 Minutes Completed 09/16/2023 30698 Manual Ship [employer] Operating Engineer 1/> Area 15 Min Each Region Completed 09/16/2023 36073 Therapy Proc, Neuromuscular Reeducation Of Movement Completed 09/16/2023 79310 Therapy Proc 1/> Area 15Min Ea Completed 09/16/2023 25563 Hot/Cold Pack Completed 09/09/2023 61925 Therapeutic Activities Direc t, Each 15 Minutes Completed 09/09/2023 83162 Manual Ship [employer] Operating Engineer 1/> Area 15 Min Each Region Completed 09/09/2023 13210 Therapy Proc, Neuromuscular Reeducation Of Movement Completed 09/09/2023 30561 Therapy Proc 1/> Area 15Min Ea Completed 09/09/2023 75307 Hot/Cold Pack Completed 09/06/2023 1101F PT SCR Future Fall Risk, No Fall Or 1 W/Out Injury Completed 09/05/2023 32025 Venipuncture Routine Complet ed 09/02/2023 63307 Therapy Proc 1/> Area 15Min Ea Completed 09/02/2023 54337 Hot/Cold Pack Completed 09/02/2023 36926 Therapy Proc, Neuromuscular Reeducation Of Movement Completed 09/02/2023 04627 Manual Ship [employer] Operating Engineer 1/> Area 15 Min Each Region Completed 09/02/2023 64137 Therapeutic Activities Direc t, Each 15 Minutes Completed 08/30/2023 83262 Therapeutic Activities Direc t, Each 15 Minutes Completed 08/30/2023 51626 Manual Ship [employer] Operating Engineer 1/> Area 15 Min Each Region Completed 08/30/2023 55499 Therapy Proc, Neuromuscular Reeducation Of Movement Completed 08/30/2023 56520 Therapy Proc 1/> Area 15Min Ea Completed 08/30/2023 60687 Hot/Cold Pack Completed 08/27/2023 37714 Therapy Proc 1/> Area 15Min Ea Completed 08/27/2023 82790 Hot/Cold Pack Completed 08/27/2023 36917 Therapy Proc, Neuromuscular Reeducation Of Movement Completed 08/27/2023 40313 Manual Ship [employer] Operating Engineer 1/> Area 15 Min Each Region Completed 08/27/2023 80363 Therapeutic Activities Direc t, Each 15 Minutes Completed 08/23/2023 98610 Therapeutic Activities Direc t, Each 15 Minutes Completed 08/23/2023 52761 Manual [employer] Operating Engineer 1/> Area 15 Min Each Region Completed 08/23/2023 24171 Therapy Proc, Neuromuscular Reeducation Of Movement Completed 08/23/2023 16273 Therapy Proc 1/> Area 15Min Ea Completed 08/23/2023 02415 Hot/Cold Pack Completed 08/20/2023 66900 Therapeutic Activities Direc t, Each 15 Minutes Completed 08/20/2023 72515 Hot/Cold Pack Completed 08/20/2023 44873 Therapy Proc 1/> Area 15Min Ea Completed 08/20/2023 92291 Therapy Proc, Neuromuscular Reeducation Of Movement Completed 08/20/2023 53240 Manual Ship [employer] Operating Engineer 1/> Area 15 Min Each Region Completed 08/16/2023 85001 Therapeutic Activities Direc t, Each 15 Minutes Completed 08/16/2023 60380 Manual [employer] Operating Engineer 1/> Area 15 Min Each Region Completed 08/16/2023 83768 Therapy Proc, Neuromuscular Reeducation Of Movement Completed 08/16/2023 43433 Therapy Proc 1/> Area 15Min Ea Completed 08/16/2023 80586 Hot/Cold Pack Completed 08/12/2023 88184 Therapeutic Activities Direc t, Each 15 Minutes Completed 08/12/2023 71015 Manual Ship [employer] Operating Engineer 1/> Area 15 Min Each Region Completed 08/12/2023 52216 Therapy Proc, Neuromuscular Reeducation Of Movement Completed 08/12/2023 86956 Therapy Proc 1/> Area 15Min Ea Completed 08/12/2023 77920 Hot/Cold Pack Completed 08/09/2023 77119 Therapeutic Activities Direc t, Each 15 Minutes Completed 08/09/2023 11708 Hot/Cold Pack Completed 08/09/2023 68974 Therapy Proc 1/> Area 15Min Ea Completed 08/09/2023 06282 Manual Ship [employer] Operating Engineer 1/> Area 15 Min Each Region Completed 08/09/2023 19307 Therapy Proc, Neuromuscular Reeducation Of Movement Completed 08/05/2023 84067 Manual Ship [employer] Operating Engineer 1/> Area 15 Min Each Region Completed 08/05/2023 71906 Therapy Proc, Neuromuscular Reeducation Of Movement Completed 08/05/2023 11359 Hot/Cold Pack Completed 08/05/2023 14489 Therapeutic Activities Direc t, Each 15 Minutes Completed 08/02/2023 42301 Hot/Cold Pack Completed 08/02/2023 61122 Therapy Proc 1/> Area 15Min Ea Completed 08/02/2023 06554 Therapy Proc, Neuromuscular Reeducation Of Movement Completed 08/02/2023 46101 Manual Ship [employer] Operating Engineer 1/> Area 15 Min Each Region Completed 08/02/2023 67772 Therapeutic Activities Direc t, Each 15 Minutes Completed 07/29/2023 43670 Therapeutic Activities Direc t, Each 15 Minutes Completed 07/29/2023 70804 Manual Ship [employer] Operating Engineer 1/> Area 15 Min Each Region Completed 07/29/2023 78782 Therapy Proc, Neuromuscular Reeducation Of Movement Completed 07/29/2023 78017 Therapy Proc 1/> Area 15Min Ea Completed 07/29/2023 70362 Hot/Cold Pack Completed 07/22/2023 78516 Manual Ship [employer] Operating Engineer 1/> Area 15 Min Each Region Completed 07/22/2023 33687 Hot/Cold Pack Completed 07/22/2023 14512 Therapy Proc 1/> Area 15Min Ea Completed 07/22/2023 27073 Therapy Proc, Neuromuscular Reeducation Of Movement Completed 07/22/2023 13181 Therapeutic Activities Direc t, Each 15 Minutes Completed 07/19/2023 70893 Therapeutic Activities Direc t, Each 15 Minutes Completed 07/19/2023 04752 Manual Ship [employer] Operating Engineer 1/> Area 15 Min Each Region Completed 07/19/2023 12036 Therapy Proc, Neuromuscular Reeducation Of Movement Completed 07/19/2023 53588 Therapy Proc 1/> Area 15Min Ea Completed 07/19/2023 39296 Hot/Cold Pack Completed 07/15/2023 99864 Therapeutic Activities Direc t, Each 15 Minutes Completed 07/15/2023 74886 Manual Ship [employer] Operating Engineer 1/> Area 15 Min Each Region Completed 07/15/2023 99366 Therapy Proc, Neuromuscular Reeducation Of Movement Completed 07/15/2023 60792 Hot/Cold Pack Completed 07/12/2023 69467 Hot/Cold Pack Completed 07/12/2023 04592 Therapy Proc 1/> Area 15Min Ea Completed 07/12/2023 52668 Manual [employer] Operating Engineer 1/> Area 15 Min Each Region Completed 07/12/2023 96892 Therapeutic Activities Direc t, Each 15 Minutes Completed 07/12/2023 34692 Therapy Proc, Neuromuscular Reeducation Of Movement Completed 07/10/2023 97102 Therapeutic Activities Direc t, Each 15 Minutes Completed 07/10/2023 61325 Manual [employer] Operating Engineer 1/> Area 15 Min Each Region Completed 07/10/2023 89747 Therapy Proc, Neuromuscular Reeducation Of Movement Completed 07/10/2023 46440 Therapy Proc 1/> Area 15Min Ea Completed 07/10/2023 50619 Hot/Cold Pack Completed 07/08/2023 00888 Therapeutic Activities Direc t, Each 15 Minutes Completed 07/08/2023 63467 Manual Ship [employer] Operating Engineer 1/> Area 15 Min Each Region Completed 07/08/2023 11447 Therapy Proc, Neuromuscular Reeducation Of Movement Completed 07/08/2023 00363 Therapy Proc 1/> Area 15Min Ea Completed 07/08/2023 47610 Hot/Cold Pack Completed 07/05/2023 42003 Hot/Cold Pack Completed 07/05/2023 72808 Therapy Proc 1/> Area 15Min Ea Completed 07/05/2023 47110 Manual Ship [employer] Operating Engineer 1/> Area 15 Min Each Region Completed 07/05/2023 28715 Therapeutic Activities Direc t, Each 15 Minutes Completed 07/05/2023 80054 Therapy Proc, Neuromuscular Reeducation Of Movement Completed 07/03/2023 04471 Therapeutic Activities Direc t, Each 15 Minutes Completed 07/03/2023 08395 Manual [employer] Operating Engineer 1/> Area 15 Min Each Region Completed 07/03/2023 60605 Therapy Proc, Neuromuscular Reeducation Of Movement Completed 07/03/2023 14759 Therapy Proc 1/> Area 15Min Ea Completed 07/03/2023 09001 Hot/Cold Pack Completed 07/01/2023 25434 Therapy Proc, Neuromuscular Reeducation Of Movement Completed 07/01/2023 16375 Hot/Cold Pack Completed 07/01/2023 12145 Therapy Proc 1/> Area 15Min Ea Completed 07/01/2023 64531 Manual [employer] Operating Engineer 1/> Area 15 Min Each Region Completed 07/01/2023 82082 Therapeutic Activities Direc t, Each 15 Minutes Completed 06/28/2023 81241 Therapeutic Activities Direc t, Each 15 Minutes Completed 06/28/2023 08134 Manual [employer] Operating Engineer 1/> Area 15 Min Each Region Completed 06/28/2023 91579 Therapy Proc, Neuromuscular Reeducation Of Movement Completed 06/28/2023 49436 Therapy Proc 1/> Area 15Min Ea Completed 06/24/2023 71078 Therapeutic Activities Direc t, Each 15 Minutes Completed 06/24/2023 42406 Hot/Cold Pack Completed 06/24/2023 15244 Therapy Proc 1/> Area 15Min Ea Completed 06/24/2023 32087 Manual [employer] Operating Engineer 1/> Area 15 Min Each Region Completed 06/24/2023 88094 Therapy Proc, Neuromuscular Reeducation Of Movement Completed 06/21/2023 11578 Therapeutic Activities Direc t, Each 15 Minutes Completed 06/21/2023 71831 Manual Ship [employer] Operating Engineer 1/> Area 15 Min Each Region Completed 06/21/2023 47851 Therapy Proc, Neuromuscular Reeducation Of Movement Completed 06/21/2023 70258 Therapy Proc 1/> Area 15Min Ea Completed 06/21/2023 08768 Hot/Cold Pack Completed 06/19/2023 00257 Therapeutic Activities Direc t, Each 15 Minutes Completed 06/19/2023 77109 Manual [employer] Operating Engineer 1/> Area 15 Min Each Region Completed 06/19/2023 30318 Therapy Proc, Neuromuscular Reeducation Of Movement Completed 06/19/2023 86867 Therapy Proc 1/> Area 15Min Ea Completed 06/19/2023 08488 Hot/Cold Pack Completed 06/17/2023 87437 Hot/Cold Pack Completed 06/17/2023 55142 Therapy Proc 1/> Area 15Min Ea Completed 06/17/2023 82842 Manual [employer] Operating Engineer 1/> Area 15 Min Each Region Completed 06/17/2023 68227 Therapeutic Activities Direc t, Each 15 Minutes Completed 06/17/2023 23848 Therapy Proc, Neuromuscular Reeducation Of Movement Completed 06/14/2023 96716 Therapeutic Activities Direc t, Each 15 Minutes Completed 06/14/2023 47071 Manual Ship [employer] Operating Engineer 1/> Area 15 Min Each Region Completed 06/14/2023 06679 Therapy Proc, Neuromuscular Reeducation Of Movement Completed 06/14/2023 35609 Therapy Proc 1/> Area 15Min Ea Completed 06/14/2023 47647 Hot/Cold Pack Completed 06/12/2023 59671 Manual [employer] Operating Engineer 1/> Area 15 Min Each Region Completed 06/12/2023 93949 Hot/Cold Pack Completed 06/12/2023 40010 Therapy Proc 1/> Area 15Min Ea Completed 06/12/2023 26239 Therapy Proc, Neuromuscular Reeducation Of Movement Completed 06/12/2023 04898 Therapeutic Activities Direc t, Each 15 Minutes Completed 06/07/2023 87147 Therapeutic Activities Direc t, Each 15 Minutes Completed 06/07/2023 38235 Manual [employer] Operating Engineer 1/> Area 15 Min Each Region Completed 06/07/2023 12812 Therapy Proc, Neuromuscular Reeducation Of Movement Completed 06/07/2023 59691 Therapy Proc 1/> Area 15Min Ea Completed 06/05/2023 84121 Therapy Proc 1/> Area 15Min Ea Completed 06/05/2023 36558 Hot/Cold Pack Completed 06/05/2023 27317 Therapy Proc, Neuromuscular Reeducation Of Movement Completed 06/05/2023 16413 Therapeutic Activities Direc t, Each 15 Minutes Completed 06/05/2023 83537 Manual [employer] Operating Engineer 1/> Area 15 Min Each Region Completed 06/03/2023 28568 Therapeutic Activities Direc t, Each 15 Minutes Completed 06/03/2023 97034 Manual [employer] Operating Engineer 1/> Area 15 Min Each Region Completed 06/03/2023 79878 Therapy Proc, Neuromuscular Reeducation Of Movement Completed 06/03/2023 62953 Therapy Proc 1/> Area 15Min Ea Completed 06/03/2023 00474 Hot/Cold Pack Completed 05/31/2023 50274 Hot/Cold Pack Completed 05/31/2023 48917 Therapy Proc, Neuromuscular Reeducation Of Movement Completed 05/31/2023 28743 Manual [employer] Operating Engineer 1/> Area 15 Min Each Region Completed 05/31/2023 92423 Therapeutic Activities Direc t, Each 15 Minutes Completed 05/29/2023 66360 Therapeutic Activities Direc t, Each 15 Minutes Completed 05/29/2023 31000 Therapeutic Procedure Group Completed 05/29/2023 36902 Manual [employer] Operating Engineer 1/> Area 15 Min Each Region Completed 05/29/2023 58222 Therapy Proc, Neuromuscular Reeducation Of Movement Completed 05/29/2023 53893 Hot/Cold Pack Completed 05/27/2023 01672 Therapeutic Activities Direc t, Each 15 Minutes Completed 05/27/2023 23692 Hot/Cold Pack Completed 05/27/2023 50786 Therapy Proc, Neuromuscular Reeducation Of Movement Completed 05/27/2023 73511 Manual [employer] Operating Engineer 1/> Area 15 Min Each Region Completed 05/27/2023 09662 Therapeutic Procedure Group Completed 05/24/2023 04133 Therapeutic Activities Direc t, Each 15 Minutes Completed 05/24/2023 97576 Manual [employer] Operating Engineer 1/> Area 15 Min Each Region Completed 05/24/2023 98968 Therapy Proc, Neuromuscular Reeducation Of Movement Completed 05/24/2023 18011 Therapy Proc 1/> Area 15Min Ea Completed 05/24/2023 41515 Hot/Cold Pack Completed 05/22/2023 91881 Therapeutic Activities Direc t, Each 15 Minutes Completed 05/22/2023 62237 Manual [employer] Operating Engineer 1/> Area 15 Min Each Region Completed 05/22/2023 37722 Therapy Proc, Neuromuscular Reeducation Of Movement Completed 05/22/2023 69486 Therapy Proc 1/> Area 15Min Ea Completed 05/22/2023 12301 Hot/Cold Pack Completed 05/20/2023 34792 Therapy Proc 1/> Area 15Min Ea Completed 05/20/2023 06264 Hot/Cold Pack Completed 05/20/2023 72725 Manual [employer] Operating Engineer 1/> Area 15 Min Each Region Completed 05/20/2023 60952 Therapeutic Activities Direc t, Each 15 Minutes Completed 05/20/2023 99842 Therapy Proc, Neuromuscular Reeducation Of Movement Completed 05/17/2023 98377 Therapeutic Activities Direc t, Each 15 Minutes Completed 05/17/2023 52758 Manual [employer] Operating Engineer 1/> Area 15 Min Each Region Completed 05/17/2023 57721 Therapy Proc, Neuromuscular Reeducation Of Movement Completed 05/17/2023 57696 Therapy Proc 1/> Area 15Min Ea Completed 05/17/2023 86978 Hot/Cold Pack Completed 05/15/2023 17206 Therapy Proc 1/> Area 15Min Ea Completed 05/15/2023 34028 Hot/Cold Pack Completed 05/15/2023 81177 Therapy Proc, Neuromuscular Reeducation Of Movement Completed 05/15/2023 30311 Manual [employer] Operating Engineer 1/> Area 15 Min Each Region Completed 05/15/2023 11258 Therapeutic Activities Direc t, Each 15 Minutes Completed 2023 12968 Therapeutic Activities Direc t, Each 15 Minutes Completed 2023 76628 Manual [employer] Operating Engineer 1/> Area 15 Min Each Region Completed 2023 40521 Therapy Proc, Neuromuscular Reeducation Of Movement Completed 2023 94821 Therapy Proc 1/> Area 15Min Ea Completed 2023 06713 Hot/Cold Pack Completed 05/10/2023 65600 Therapeutic Activities Direc t, Each 15 Minutes Completed 05/10/2023 18313 Hot/Cold Pack Completed 05/10/2023 85969 Therapy Proc 1/> Area 15Min Ea Completed 05/10/2023 09375 Therapy Proc, Neuromuscular Reeducation Of Movement Completed 05/10/2023 61035 Manual [employer] Operating Engineer 1/> Area 15 Min Each Region Completed 05/08/2023 65963 Therapeutic Activities Direc t, Each 15 Minutes Completed 05/08/2023 87944 Manual [employer] Operating Engineer 1/> Area 15 Min Each Region Completed 05/08/2023 92369 Therapy Proc, Neuromuscular Reeducation Of Movement Completed 05/08/2023 03422 Therapy Proc 1/> Area 15Min Ea Completed 05/08/2023 75016 Hot/Cold Pack Completed 05/06/2023 14482 Therapeutic Activities Direc t, Each 15 Minutes Completed 05/06/2023 81124 Manual [employer] Operating Engineer 1/> Area 15 Min Each Region Completed 05/06/2023 22068 Therapy Proc, Neuromuscular Reeducation Of Movement Completed 05/06/2023 96838 Therapy Proc 1/> Area 15Min Ea Completed 05/06/2023 83266 Hot/Cold Pack Completed 05/02/2023 58639 Therapeutic Activities Direc t, Each 15 Minutes Completed 05/02/2023 59241 Therapy Proc 1/> Area 15Min Ea Completed 05/02/2023 53327 Manual [employer] Operating Engineer 1/> Area 15 Min Each Region Completed 05/02/2023 40382 Therapy Proc, Neuromuscular Reeducation Of Movement Completed 04/30/2023 07148 Manual [employer] Operating Engineer 1/> Area 15 Min Each Region Completed 04/30/2023 31536 Therapy Proc, Neuromuscular Reeducation Of Movement Completed 04/30/2023 67768 Therapy Proc 1/> Area 15Min Ea Completed 04/30/2023 94508 Hot/Cold Pack Completed 04/24/2023 77510 Manual [employer] Operating Engineer 1/> Area 15 Min Each Region Completed 04/24/2023 04565 Therapy Proc, Neuromuscular Reeducation Of Movement Completed 04/24/2023 91891 Therapy Proc 1/> Area 15Min Ea Completed 04/22/2023 05354 Manual [employer] Operating Engineer 1/> Area 15 Min Each Region Completed 04/22/2023 80392 Therapy Proc, Neuromuscular Reeducation Of Movement Completed 04/22/2023 97533 Therapy Proc 1/> Area 15Min Ea Completed 04/22/2023 91762 Hot/Cold Pack Completed 04/19/2023 03920 Therapy Proc 1/> Area 15Min Ea Completed 04/19/2023 48786 Hot/Cold Pack Completed 04/19/2023 74552 Therapy Proc, Neuromuscular Reeducation Of Movement Completed 04/19/2023 51736 Manual [employer] Operating Engineer 1/> Area 15 Min Each Region Completed 04/18/2023 59033 Manual [employer] Operating Engineer 1/> Area 15 Min Each Region Completed 04/18/2023 56592 Therapy Proc, Neuromuscular Reeducation Of Movement Completed 04/18/2023 52901 Therapy Proc 1/> Area 15Min Ea Completed 04/15/2023 54592 Manual [employer] Operating Engineer 1/> Area 15 Min Each Region Completed 04/15/2023 05914 Therapy Proc, Neuromuscular Reeducation Of Movement Completed 04/15/2023 81847 Therapy Proc 1/> Area 15Min Ea Completed 04/15/2023 07140 Hot/Cold Pack Completed 04/12/2023 32853 Manual Ship [employer] Operating Engineer 1/> Area 15 Min Each Region Completed 04/12/2023 82827 Therapy Proc, Neuromuscular Reeducation Of Movement Completed 04/12/2023 21566 Therapy Proc 1/> Area 15Min Ea Completed 04/12/2023 65364 Hot/Cold Pack Completed 04/10/2023 13078 Manual Ship [employer] Operating Engineer 1/> Area 15 Min Each Region Completed 04/10/2023 68706 Therapy Proc, Neuromuscular Reeducation Of Movement Completed 04/10/2023 52807 Therapy Proc 1/> Area 15Min Ea Completed Medical Devices Description No Information Available Encounters Type Date Location Provider Dx Diagnosis Office Visit 10/10/2023 3:45p [place] Can Ledbetter BIOLOGY INSTRUCTOR R60.0 Localized edema R07.89 Other chest pain Office Visit 10/08/2023 3:00p [place] Can Ledbetter BIOLOGY INSTRUCTOR R60.0 Localized edema R07.89 Other chest pain Office Visit 10/02/2023 3:45p [place] THADDEUS Ramirez R60.0 Localized edema Office Visit 09/06/2023 10:30a [place] Dawson Mak ylor, DO I10 Essential (primary) hypertension 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 F41.1 Generalized anxiety disorder R60.0 Localized edema Assessments Date Code Description Provider 10/10/2023 R60.0 Localized edema Berta leon, THADDEUS 10/10/2023 R07.89 Other chest pain THADDEUS Alanis 10/08/2023 R60.0 Localized edema Berta leon, [employer]ER 10/08/2023 R07.89 Other chest pain THADDEUS Alanis 10/02/2023 R60.0 Localized edema Berta leon, [employer]ODUCT [employer] OFFICER 09/30/2023 R26.2 Difficulty in wa lking, not elsewhere classified Aki Garcia, DPT 09/30/2023 M25.511 Pain in right shoulder Oziel Garcia, DPT 09/27/2023 R26.2 Difficulty in wa lking, not elsewhere classified Aki Garcia, DPT 09/27/2023 M25.511 Pain in right shoulder Oziel Garcia, DPT 09/24/2023 R26.2 Difficulty in wa lking, not elsewhere classified Aki Garcia, DPT 09/24/2023 M25.511 Pain in right shoulder Oziel Garcia, DPT 09/20/2023 R26.2 Difficulty in wa lking, not elsewhere classified Aki Garcia, DPT 09/20/2023 M25.511 Pain in right shoulder Oziel Garcia, DPT 09/16/2023 R26.2 Difficulty in wa lking, not elsewhere classified Aki Garcia, DPT 09/16/2023 M25.511 Pain in right shoulder Oziel Garcia, DPT 09/09/2023 R26.2 Difficulty in wa lking, not elsewhere classified Aki Garcia, DPT 09/09/2023 M25.511 Pain in right shoulder Oziel Garcia, DPT 09/06/2023 I10 Essential (primary) hyperten vickie Dawson Almodovar, DO 09/06/2023 K21.9 Gastro-esophagea l reflux 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 Dawson Almodovar, DO 09/06/2023 F41.1 Generalized anxiety disorder Dawson Almodovar, DO 09/06/2023 R60.0 Localized edema Dawson Garcia or, DO 09/05/2023 R60.0 Localized edema Dawson Garcia or, DO 09/05/2023 R60.0 Localized edema Lab - [place] 09/05/2023 I10 Essential (primary) hyperten vickie Dawson Almodovar, DO 09/05/2023 I10 Essential (primary) hyperten vickie [facility] - [place] 09/02/2023 R26.2 Difficulty in wa lking, not elsewhere classified Aki Garcia, DPT 09/02/2023 M25.511 Pain in right shoulder Oziel luna Jose, DPT 08/30/2023 R26.2 Difficulty in wa lking, not elsewhere classified Aki Garcia, DPT 08/30/2023 M25.511 Pain in right shoulder Oziel Garcia, DPT 08/27/2023 R26.2 Difficulty in wa lking, not elsewhere classified Aki Garcia, DPT 08/27/2023 M25.511 Pain in right shoulder Oziel Garcia, DPT 08/23/2023 R26.2 Difficulty in wa lking, not elsewhere classified Aki Garcia, DPT 08/23/2023 M25.511 Pain in right shoulder Oziel Garcia, DPT 08/20/2023 R26.2 Difficulty in wa lking, not elsewhere classified Aki Garcia, DPT 08/20/2023 M25.511 Pain in right shoulder Oziel Garcia, DPT 08/16/2023 R26.2 Difficulty in wa lking, not elsewhere classified Aki Garcia, DPT 08/16/2023 M25.511 Pain in right shoulder Oziel Garcia, DPT 08/12/2023 R26.2 Difficulty in wa lking, not elsewhere classified Aki Garcia, DPT 08/12/2023 M25.511 Pain in right shoulder Oziel Garcia, DPT 08/09/2023 R26.2 Difficulty in wa lking, not elsewhere classified Aki Garcia, DPT 08/09/2023 M25.511 Pain in right shoulder Oziel Garcia, DPT 08/05/2023 R26.2 Difficulty in wa lking, not elsewhere classified Aki Garcia, DPT 08/05/2023 M25.511 Pain in right shoulder Oziel Garcia, DPT 08/02/2023 R26.2 Difficulty in wa lking, not elsewhere classified Aki Garcia, DPT 08/02/2023 M25.511 Pain in right shoulder Oziel Garcia, DPT 07/29/2023 R26.2 Difficulty in wa lking, not elsewhere classified Aki Garcia, DPT 07/29/2023 M25.511 Pain in right shoulder Oziel Garcia, DPT 07/26/2023 R26.2 Difficulty in wa lking, not elsewhere classified Aki Garcia, DPT 07/26/2023 M25.511 Pain in right shoulder Oziel Garcia, DPT 07/22/2023 R26.2 Difficulty in wa lking, not elsewhere classified Aki Garcia, DPT 07/22/2023 M25.511 Pain in right shoulder Oziel Garcia, DPT 07/19/2023 R26.2 Difficulty in wa lking, not elsewhere classified Aki Garcia, DPT 07/19/2023 M25.511 Pain in right shoulder Oziel Garcia, DPT 07/15/2023 R26.2 Difficulty in wa lking, not elsewhere classified Aki Garcia, DPT 07/15/2023 M25.511 Pain in right shoulder Oziel Garcia, DPT 07/12/2023 R26.2 Difficulty in wa lking, not elsewhere classified Aki Garcia, DPT 07/12/2023 M25.511 Pain in right shoulder Oziel Garcia, DPT 07/10/2023 R26.2 Difficulty in wa lking, not elsewhere classified Aki Garcia, DPT 07/10/2023 M25.511 Pain in right shoulder Oziel Garcia, DPT 07/08/2023 R26.2 Difficulty in wa lking, not elsewhere classified Aki Garcia, DPT 07/08/2023 M25.511 Pain in right shoulder Oziel Garcia, DPT 07/05/2023 R26.2 Difficulty in wa lking, not elsewhere classified Aki Garcia, DPT 07/05/2023 M25.511 Pain in right shoulder Oziel Garcia, DPT 07/03/2023 R26.2 Difficulty in wa lking, not elsewhere classified Aik Garcia, DPT 07/03/2023 M25.511 Pain in right shoulder Oziel Garcia, DPT 07/01/2023 R26.2 Difficulty in wa lking, not elsewhere classified Aki Garcia, DPT 07/01/2023 M25.511 Pain in right shoulder Oziel Garcia, DPT 06/28/2023 R26.2 Difficulty in wa lking, not elsewhere classified Aki Garcia, DPT 06/28/2023 M25.511 Pain in right shoulder Oziel Garcia, DPT 06/26/2023 R26.2 Difficulty in wa lking, not elsewhere classified Aki Garcia, DPT 06/26/2023 M25.511 Pain in right shoulder Oziel Garcia, DPT 06/24/2023 R26.2 Difficulty in wa lking, not elsewhere classified Aki Garcia, DPT 06/24/2023 M25.511 Pain in right shoulder Oziel Garcia, DPT 06/21/2023 R26.2 Difficulty in wa lking, not elsewhere classified Aki Garcia, DPT 06/21/2023 M25.511 Pain in right shoulder Oziel Garcia, DPT 06/19/2023 R26.2 Difficulty in wa lking, not elsewhere classified Aki Garcia, DPT 06/19/2023 M25.511 Pain in right shoulder Oziel Garcia, DPT 06/17/2023 R26.2 Difficulty in wa lking, not elsewhere classified Aki Garcia, DPT 06/17/2023 M25.511 Pain in right shoulder Oziel Garcia, DPT 06/14/2023 R26.2 Difficulty in wa lking, not elsewhere classified Aki Garcia, DPT 06/14/2023 M25.511 Pain in right shoulder Oziel Garcia, DPT 06/12/2023 R26.2 Difficulty in wa lking, not elsewhere classified Aki Garcia, DPT 06/12/2023 M25.511 Pain in right shoulder Oziel Garcia, DPT 06/07/2023 R26.2 Difficulty in wa lking, not elsewhere classified Aki Garcia, DPT 06/07/2023 M25.511 Pain in right shoulder Oziel Garcia, DPT 06/05/2023 R26.2 Difficulty in wa lking, not elsewhere classified Aki Garcia, DPT 06/05/2023 M25.511 Pain in right shoulder Oziel Garcia, DPT 06/03/2023 R26.2 Difficulty in wa lking, not elsewhere classified Aki Garcia, DPT 06/03/2023 M25.511 Pain in right shoulder Oziel Garcia, DPT 05/31/2023 R26.2 Difficulty in wa lking, not elsewhere classified Aki Garcia, DPT 05/31/2023 M25.511 Pain in right shoulder Oziel Garcia, DPT 05/29/2023 R26.2 Difficulty in wa lking, not elsewhere classified Aki Garcia, DPT 05/29/2023 M25.511 Pain in right shoulder Oziel Garcia, DPT 05/27/2023 R26.2 Difficulty in wa lking, not elsewhere classified Aki Garcia, DPT 05/27/2023 M25.511 Pain in right shoulder Oziel Garcia, DPT 05/24/2023 R26.2 Difficulty in wa lking, not elsewhere classified Aki Garcia, DPT 05/24/2023 M25.511 Pain in right shoulder Oziel Garcia, DPT 05/22/2023 R26.2 Difficulty in wa lking, not elsewhere classified Aki Garcia, DPT 05/22/2023 M25.511 Pain in right shoulder Oziel Garcia, DPT 05/20/2023 R26.2 Difficulty in wa lking, not elsewhere classified Aki Garcia, DPT 05/20/2023 M25.511 Pain in right shoulder Oziel Garcia, DPT 05/17/2023 R26.2 Difficulty in wa lking, not elsewhere classified Aki Garcia, DPT 05/17/2023 M25.511 Pain in right shoulder Oziel Garcia, DPT 05/15/2023 R26.2 Difficulty in wa lking, not elsewhere classified Aki Garcia, DPT 05/15/2023 M25.511 Pain in right shoulder Oziel Garcia, DPT 2023 R26.2 Difficulty in wa lking, not elsewhere classified Aki Garcia, DPT 2023 M25.511 Pain in right shoulder Oziel Garcia, DPT 05/10/2023 R26.2 Difficulty in wa lking, not elsewhere classified Aki Garcia, DPT 05/10/2023 M25.511 Pain in right shoulder Oziel Garcia, DPT 05/08/2023 R26.2 Difficulty in wa lking, not elsewhere classified Aki Garcia, DPT 05/08/2023 M25.511 Pain in right shoulder Oziel Garcia, DPT 05/06/2023 R26.2 Difficulty in wa lking, not elsewhere classified Aki Garcia, DPT 05/06/2023 M25.511 Pain in right shoulder Oziel Garcia, DPT 05/02/2023 R26.2 Difficulty in wa lking, not elsewhere classified Aki Garcia, DPT 05/02/2023 M25.511 Pain in right shoulder Oziel Garcia, DPT 04/30/2023 R26.2 Difficulty in wa lking, not elsewhere classified Aki Garcia, DPT 04/30/2023 M25.511 Pain in right shoulder Oziel Garcia, DPT 04/26/2023 R26.2 Difficulty in wa lking, not elsewhere classified [employer] Smith, DPT 04/26/2023 M25.511 Pain in right shoulder Oziel Garcia, DPT 04/24/2023 R26.2 Difficulty in wa lking, not elsewhere classified [employer] Jose, DPT 04/24/2023 M25.511 Pain in right shoulder Oziel Garcia, DPT 04/22/2023 R26.2 Difficulty in wa lking, not elsewhere classified [employer] Jose, DPT 04/22/2023 M25.511 Pain in right shoulder Oziel Garcia, DPT 04/19/2023 R26.2 Difficulty in wa lking, not elsewhere classified Aki Garcia, DPT 04/19/2023 M25.511 Pain in right shoulder Oziel Garcia, DPT 04/18/2023 R26.2 Difficulty in wa lking, not elsewhere classified Aki Garcia, DPT 04/18/2023 M25.511 Pain in right shoulder Oziel Garcia, DPT 04/15/2023 R26.2 Difficulty in wa lking, not elsewhere classified Aki Garcia, DPT 04/15/2023 M25.511 Pain in right shoulder Oziel Garcia, DPT 04/12/2023 R26.2 Difficulty in wa lking, not elsewhere classified Aki Garcia, DPT 04/12/2023 M25.511 Pain in right shoulder Oziel Garcia, DPT 04/10/2023 R26.2 Difficulty in wa lking, not elsewhere classified Aki Garcia, DPT 04/10/2023 M25.511 Pain in right shoulder Oziel Garcia, DPT Plan of Treatment Future Appointment(s):* 03/13/2024 10:30 am - Dawson Almodovar DO at [place] * 03/06/2024 9:00 am - [facility] [place] 10/10/2023 - THADDEUS Ledbetter* R60.0 Localized edema* Comments:* - kidney function is worsening and edema is not improved. She had not lost any weight since changeswere made to her diuretic. Recommend ED at this point. She and daughter reluctantly in agreement and will go to [facility]. Report was called to charge nurse in ED. * R07.89 Other chest pain Functional Status Description No Information Available Mental Status Description No Information Available Referrals Description No Information Available"
--- OUTSIDE RECORDS SUMMARY | 2023-10-11 13:11 | External Medical Summary | Continuity of Care Document ---
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 Tobacco Use Reviewed: [...] SIG Qnty Indications Order ing Provider Date [id number] Tablets 2 tablet by mouth daily for next 2 days 30tabs R60.0 THADDEUS Ledbetter 10/02/2023 Multi + [place]-3 Adult GummiesChewtabs 1 by mouth every day Dawson Almodovar DO 08/08/2022 Vitamin B ComplexTablets 1 by mouth every day Dawson Almodovar DO 08/08/2022 Losartan Potassium/Hydrochlorothi [id number] Tablets 1 by mouth every day 90tabs I10 Dawson Almodovar DO 03/21/2020 Juice Plus Fibre` Dawson Almodovar DO 02/19/2018 Aspirin Adult Low Ryty23we Tablets DR 1 by mouth every day Unknown Citalopram [id number] Tablets 1 by mouth every day 90tabs F41.1 Dawson Almodovar, DO Vitamin D3 Maximum [id number] (5000 Ut) Capsules 1 by mouth once daily Unknown Medications Administered in Office Medication SIG Qnty Indications Ordering Provider Date Injection Furosemide To 20 M G (Lizette Oconnell MD)Injection THADDEUS Ferrer 10/08/2023 Immunizations CPT Code Status Date Vaccine Lot # [id number] Given 07/14/2009 Pneumococcal Vaccine/Pneu movax 23 [id number] Refused 09/06/2023 Sarscov2 Vaccin e 50 mcg/0.5 ML For Im Use 12 Yrs And Older 54519 Refused 09/06/2023 Pneumococcal Conjugate-Pr evnar 20 89282 Refused 10/19/2022 Shingrix 39036 Refused 08/08/2022 Pneumococcal Conjugate-Pr evnar 20 36230 Refused 08/08/2022 Influenza Vac, Split, Preservative Free High Dose Age 65 & > 95508 Refused 04/20/2022 Moderna Sars-Co v-2 (Cov-19) vacc,100 mcg/ 0.5 mL 12Y+EMR Doc Only 65907 Refused 10/16/2021 Influenza Virus Vaccine, Quadrivalent (Cciiv4), Derived From Cell 43539 Refused 10/16/2021 Shingrix 74194 Refused 10/16/2021 Pneumococcal Conjugate-Pr evnar 13 66856 Refused 03/20/2021 Pfizer Sars-Cov -2 (Cov-19) vacc 30mcg/0.3ML 12Y+ EMR Doc Only [id number] Refused 04/17/2019 Influenza Vacci ne, Inactivated, Subunit, Adjuvanted, For Intrmusc 29085 Refused 01/29/2019 Tdap (Tetanus, diphtheria & acel. pertussis) Adacel or Boostrix 12129 Refused 01/29/2019 Pneumococcal Conjugate-Pr evnar 13 Vital Signs Date Vital Result Comment 10/08/2023 3:03pm BP Systolic 180 mmHg BP Diastolic 90 mmHg BP Systolic Recheck 156 mmHg BP Diastolic Recheck 86 mmHg Body Temperature 98.1 F Heart Rate 76 /min Respiratory Rate 20 /min Weight 221.00 lb Weight 100.246 kg O2 % BldC Oximetry 98 % 10/02/2023 3:36pm BP Systolic 160 mmHg BP Diastolic 100 mmHg Body Temperature 97.4 F Heart Rate 76 /min Respiratory Rate 20 /min Weight 217.00 lb Weight 98.431 kg Results Test Acquired Date Facility Test Result H/L Range N ote Laboratory test finding 10/02/2023 [facility] [address] [place] [address] [phone] BNP 140.0 pg/mL High 0.0-100.0 BMP 10/02/2023 [facility] [address] [place] [address] [phone] Glucose 119 mg/dL High 70-110 1 BUN 45 mg/dL High 6-25 Creatinine 1.2 mg/dL 0.5-1.2 Sodium 136 mEq/L 135-145 Potassium 4.7 mEq/L 3.5-5.0 Chloride 102 mEq/L 95-107 Co-2 28 mEq/L 24-31 Calcium 8.6 mg/dL 8.5-10.6 GFR 45 ML/MIN/1.73SQM Low >60 BMP 09/05/2023 [facility] [address] [place] [address] [phone] Glucose 88 mg/dL 70-110 BUN 23 mg/dL 6-25 Creatinine 0.8 mg/dL 0.5-1.2 Sodium 138 mEq/L 135-145 Potassium 4.1 mEq/L 3.5-5.0 Chloride 100 mEq/L 95-107 Co-2 29 mEq/L 24-31 Calcium 9.4 mg/dL 8.5-10.6 GFR 72 ML/MIN/1.73SQM >60 1 STAT RESULTS CALLED AND FAXED TO GALILEO Berman AT 9:48 ON 10/03/23 WK Procedures Date Code Description Status 10/08/2023 58920 Electrocardiogram Complete C ompleted 10/08/2023 J1940 Injection Furosemide To 20 M G (Lizette Oconnell MD) Completed 10/02/2023 39276 Venipuncture Routine Complet ed 09/30/2023 15639 Manual Crusher Screen Repairer 1/> Area 15 Min Each Region Completed 09/30/2023 57981 Therapy Proc, Neuromuscular Reeducation Of Movement Completed 09/30/2023 18960 Therapy Proc 1/> Area 15Min Ea Completed 09/30/2023 25705 Hot/Cold Pack Completed 09/27/2023 27243 Therapy Proc 1/> Area 15Min Ea Completed 09/27/2023 74725 Hot/Cold Pack Completed 09/27/2023 27325 Therapy Proc, Neuromuscular Reeducation Of Movement Completed 09/27/2023 46129 Manual Crusher Screen Repairer 1/> Area 15 Min Each Region Completed 09/27/2023 81875 Therapeutic Activities Direc t, Each 15 Minutes Completed 09/24/2023 72593 Therapeutic Activities Direc t, Each 15 Minutes Completed 09/24/2023 38424 Manual Crusher Screen Repairer 1/> Area 15 Min Each Region Completed 09/24/2023 14248 Therapy Proc, Neuromuscular Reeducation Of Movement Completed 09/24/2023 77202 Therapy Proc 1/> Area 15Min Ea Completed 09/24/2023 38325 Hot/Cold Pack Completed 09/20/2023 31847 Manual Crusher Screen Repairer 1/> Area 15 Min Each Region Completed 09/20/2023 65121 Hot/Cold Pack Completed 09/20/2023 83044 Therapy Proc 1/> Area 15Min Ea Completed 09/20/2023 22241 Therapy Proc, Neuromuscular Reeducation Of Movement Completed 09/20/2023 05153 Therapeutic Activities Direc t, Each 15 Minutes Completed 09/16/2023 81926 Therapeutic Activities Direc t, Each 15 Minutes Completed 09/16/2023 51181 Manual Crusher Screen Repairer 1/> Area 15 Min Each Region Completed 09/16/2023 91067 Therapy Proc, Neuromuscular Reeducation Of Movement Completed 09/16/2023 72536 Therapy Proc 1/> Area 15Min Ea Completed 09/16/2023 88267 Hot/Cold Pack Completed 09/09/2023 04125 Therapeutic Activities Direc t, Each 15 Minutes Completed 09/09/2023 74023 Manual Crusher Screen Repairer 1/> Area 15 Min Each Region Completed 09/09/2023 14422 Therapy Proc, Neuromuscular Reeducation Of Movement Completed 09/09/2023 93254 Therapy Proc 1/> Area 15Min Ea Completed 09/09/2023 31856 Hot/Cold Pack Completed 09/06/2023 1101F PT SCR Future Fall Risk, No Fall Or 1 W/Out Injury Completed 09/05/2023 31959 Venipuncture Routine Complet ed 09/02/2023 91047 Therapy Proc 1/> Area 15Min Ea Completed 09/02/2023 42312 Hot/Cold Pack Completed 09/02/2023 73833 Therapy Proc, Neuromuscular Reeducation Of Movement Completed 09/02/2023 60648 Manual Crusher Screen Repairer 1/> Area 15 Min Each Region Completed 09/02/2023 86328 Therapeutic Activities Direc t, Each 15 Minutes Completed 08/30/2023 69733 Therapeutic Activities Direc t, Each 15 Minutes Completed 08/30/2023 43242 Manual Crusher Screen Repairer 1/> Area 15 Min Each Region Completed 08/30/2023 54821 Therapy Proc, Neuromuscular Reeducation Of Movement Completed 08/30/2023 34422 Therapy Proc 1/> Area 15Min Ea Completed 08/30/2023 81575 Hot/Cold Pack Completed 08/27/2023 63892 Therapy Proc 1/> Area 15Min Ea Completed 08/27/2023 18460 Hot/Cold Pack Completed 08/27/2023 02757 Therapy Proc, Neuromuscular Reeducation Of Movement Completed 08/27/2023 81984 Manual Crusher Screen Repairer 1/> Area 15 Min Each Region Completed 08/27/2023 07514 Therapeutic Activities Direc t, Each 15 Minutes Completed 08/23/2023 00599 Therapeutic Activities Direc t, Each 15 Minutes Completed 08/23/2023 03883 Manual Crusher Screen Repairer 1/> Area 15 Min Each Region Completed 08/23/2023 75647 Therapy Proc, Neuromuscular Reeducation Of Movement Completed 08/23/2023 79047 Therapy Proc 1/> Area 15Min Ea Completed 08/23/2023 75584 Hot/Cold Pack Completed 08/20/2023 77026 Therapeutic Activities Direc t, Each 15 Minutes Completed 08/20/2023 10350 Hot/Cold Pack Completed 08/20/2023 10858 Therapy Proc 1/> Area 15Min Ea Completed 08/20/2023 96817 Therapy Proc, Neuromuscular Reeducation Of Movement Completed 08/20/2023 80197 Manual Crusher Screen Repairer 1/> Area 15 Min Each Region Completed 08/16/2023 95107 Therapeutic Activities Direc t, Each 15 Minutes Completed 08/16/2023 37275 Manual Crusher Screen Repairer 1/> Area 15 Min Each Region Completed 08/16/2023 72025 Therapy Proc, Neuromuscular Reeducation Of Movement Completed 08/16/2023 73837 Therapy Proc 1/> Area 15Min Ea Completed 08/16/2023 65884 Hot/Cold Pack Completed 08/12/2023 19665 Therapeutic Activities Direc t, Each 15 Minutes Completed 08/12/2023 06039 Manual Crusher Screen Repairer 1/> Area 15 Min Each Region Completed 08/12/2023 80109 Therapy Proc, Neuromuscular Reeducation Of Movement Completed 08/12/2023 25221 Therapy Proc 1/> Area 15Min Ea Completed 08/12/2023 36228 Hot/Cold Pack Completed 08/09/2023 26324 Therapeutic Activities Direc t, Each 15 Minutes Completed 08/09/2023 35924 Hot/Cold Pack Completed 08/09/2023 92104 Therapy Proc 1/> Area 15Min Ea Completed 08/09/2023 13102 Manual Crusher Screen Repairer 1/> Area 15 Min Each Region Completed 08/09/2023 26609 Therapy Proc, Neuromuscular Reeducation Of Movement Completed 08/05/2023 54155 Manual Crusher Screen Repairer 1/> Area 15 Min Each Region Completed 08/05/2023 76174 Therapy Proc, Neuromuscular Reeducation Of Movement Completed 08/05/2023 42399 Hot/Cold Pack Completed 08/05/2023 66009 Therapeutic Activities Direc t, Each 15 Minutes Completed 08/02/2023 31024 Hot/Cold Pack Completed 08/02/2023 99422 Therapy Proc 1/> Area 15Min Ea Completed 08/02/2023 55771 Therapy Proc, Neuromuscular Reeducation Of Movement Completed 08/02/2023 10432 Manual Crusher Screen Repairer 1/> Area 15 Min Each Region Completed 08/02/2023 11767 Therapeutic Activities Direc t, Each 15 Minutes Completed 07/29/2023 58163 Therapeutic Activities Direc t, Each 15 Minutes Completed 07/29/2023 76329 Manual Crusher Screen Repairer 1/> Area 15 Min Each Region Completed 07/29/2023 97762 Therapy Proc, Neuromuscular Reeducation Of Movement Completed 07/29/2023 00776 Therapy Proc 1/> Area 15Min Ea Completed 07/29/2023 24204 Hot/Cold Pack Completed 07/22/2023 07117 Manual Crusher Screen Repairer 1/> Area 15 Min Each Region Completed 07/22/2023 46011 Hot/Cold Pack Completed 07/22/2023 50241 Therapy Proc 1/> Area 15Min Ea Completed 07/22/2023 71904 Therapy Proc, Neuromuscular Reeducation Of Movement Completed 07/22/2023 69817 Therapeutic Activities Direc t, Each 15 Minutes Completed 07/19/2023 52617 Therapeutic Activities Direc t, Each 15 Minutes Completed 07/19/2023 72807 Manual Crusher Screen Repairer 1/> Area 15 Min Each Region Completed 07/19/2023 56553 Therapy Proc, Neuromuscular Reeducation Of Movement Completed 07/19/2023 48509 Therapy Proc 1/> Area 15Min Ea Completed 07/19/2023 78818 Hot/Cold Pack Completed 07/15/2023 58733 Therapeutic Activities Direc t, Each 15 Minutes Completed 07/15/2023 44582 Manual Crusher Screen Repairer 1/> Area 15 Min Each Region Completed 07/15/2023 87556 Therapy Proc, Neuromuscular Reeducation Of Movement Completed 07/15/2023 04854 Hot/Cold Pack Completed 07/12/2023 36071 Hot/Cold Pack Completed 07/12/2023 62726 Therapy Proc 1/> Area 15Min Ea Completed 07/12/2023 32626 Manual Crusher Screen Repairer 1/> Area 15 Min Each Region Completed 07/12/2023 03221 Therapeutic Activities Direc t, Each 15 Minutes Completed 07/12/2023 55790 Therapy Proc, Neuromuscular Reeducation Of Movement Completed 07/10/2023 65247 Therapeutic Activities Direc t, Each 15 Minutes Completed 07/10/2023 84156 Manual Crusher Screen Repairer 1/> Area 15 Min Each Region Completed 07/10/2023 00666 Therapy Proc, Neuromuscular Reeducation Of Movement Completed 07/10/2023 97588 Therapy Proc 1/> Area 15Min Ea Completed 07/10/2023 92806 Hot/Cold Pack Completed 07/08/2023 41886 Therapeutic Activities Direc t, Each 15 Minutes Completed 07/08/2023 34987 Manual Crusher Screen Repairer 1/> Area 15 Min Each Region Completed 07/08/2023 31838 Therapy Proc, Neuromuscular Reeducation Of Movement Completed 07/08/2023 66020 Therapy Proc 1/> Area 15Min Ea Completed 07/08/2023 03595 Hot/Cold Pack Completed 07/05/2023 16620 Hot/Cold Pack Completed 07/05/2023 61368 Therapy Proc 1/> Area 15Min Ea Completed 07/05/2023 57106 Manual Crusher Screen Repairer 1/> Area 15 Min Each Region Completed 07/05/2023 41479 Therapeutic Activities Direc t, Each 15 Minutes Completed 07/05/2023 55157 Therapy Proc, Neuromuscular Reeducation Of Movement Completed 07/03/2023 32437 Therapeutic Activities Direc t, Each 15 Minutes Completed 07/03/2023 78329 Manual Crusher Screen Repairer 1/> Area 15 Min Each Region Completed 07/03/2023 64864 Therapy Proc, Neuromuscular Reeducation Of Movement Completed 07/03/2023 35269 Therapy Proc 1/> Area 15Min Ea Completed 07/03/2023 93228 Hot/Cold Pack Completed 07/01/2023 82501 Therapy Proc, Neuromuscular Reeducation Of Movement Completed 07/01/2023 26697 Hot/Cold Pack Completed 07/01/2023 50010 Therapy Proc 1/> Area 15Min Ea Completed 07/01/2023 65036 Manual Crusher Screen Repairer 1/> Area 15 Min Each Region Completed 07/01/2023 91710 Therapeutic Activities Direc t, Each 15 Minutes Completed 06/28/2023 62709 Therapeutic Activities Direc t, Each 15 Minutes Completed 06/28/2023 36931 Manual Crusher Screen Repairer 1/> Area 15 Min Each Region Completed 06/28/2023 92426 Therapy Proc, Neuromuscular Reeducation Of Movement Completed 06/28/2023 13863 Therapy Proc 1/> Area 15Min Ea Completed 06/24/2023 85977 Therapeutic Activities Direc t, Each 15 Minutes Completed 06/24/2023 47788 Hot/Cold Pack Completed 06/24/2023 83494 Therapy Proc 1/> Area 15Min Ea Completed 06/24/2023 74003 Manual Crusher Screen Repairer 1/> Area 15 Min Each Region Completed 06/24/2023 48567 Therapy Proc, Neuromuscular Reeducation Of Movement Completed 06/21/2023 85537 Therapeutic Activities Direc t, Each 15 Minutes Completed 06/21/2023 87650 Manual Crusher Screen Repairer 1/> Area 15 Min Each Region Completed 06/21/2023 08565 Therapy Proc, Neuromuscular Reeducation Of Movement Completed 06/21/2023 84929 Therapy Proc 1/> Area 15Min Ea Completed 06/21/2023 35454 Hot/Cold Pack Completed 06/19/2023 74700 Therapeutic Activities Direc t, Each 15 Minutes Completed 06/19/2023 32613 Manual Crusher Screen Repairer 1/> Area 15 Min Each Region Completed 06/19/2023 15576 Therapy Proc, Neuromuscular Reeducation Of Movement Completed 06/19/2023 50791 Therapy Proc 1/> Area 15Min Ea Completed 06/19/2023 09224 Hot/Cold Pack Completed 06/17/2023 45974 Hot/Cold Pack Completed 06/17/2023 10445 Therapy Proc 1/> Area 15Min Ea Completed 06/17/2023 13821 Manual Crusher Screen Repairer 1/> Area 15 Min Each Region Completed 06/17/2023 90164 Therapeutic Activities Direc t, Each 15 Minutes Completed 06/17/2023 92401 Therapy Proc, Neuromuscular Reeducation Of Movement Completed 06/14/2023 69435 Therapeutic Activities Direc t, Each 15 Minutes Completed 06/14/2023 08921 Manual Crusher Screen Repairer 1/> Area 15 Min Each Region Completed 06/14/2023 35394 Therapy Proc, Neuromuscular Reeducation Of Movement Completed 06/14/2023 58504 Therapy Proc 1/> Area 15Min Ea Completed 06/14/2023 49563 Hot/Cold Pack Completed 06/12/2023 04883 Manual Crusher Screen Repairer 1/> Area 15 Min Each Region Completed 06/12/2023 24656 Hot/Cold Pack Completed 06/12/2023 91539 Therapy Proc 1/> Area 15Min Ea Completed 06/12/2023 92803 Therapy Proc, Neuromuscular Reeducation Of Movement Completed 06/12/2023 09075 Therapeutic Activities Direc t, Each 15 Minutes Completed 06/07/2023 35638 Therapeutic Activities Direc t, Each 15 Minutes Completed 06/07/2023 54830 Manual Crusher Screen Repairer 1/> Area 15 Min Each Region Completed 06/07/2023 31493 Therapy Proc, Neuromuscular Reeducation Of Movement Completed 06/07/2023 77713 Therapy Proc 1/> Area 15Min Ea Completed 06/05/2023 96035 Therapy Proc 1/> Area 15Min Ea Completed 06/05/2023 16959 Hot/Cold Pack Completed 06/05/2023 41474 Therapy Proc, Neuromuscular Reeducation Of Movement Completed 06/05/2023 29718 Therapeutic Activities Direc t, Each 15 Minutes Completed 06/05/2023 74588 Manual Crusher Screen Repairer 1/> Area 15 Min Each Region Completed 06/03/2023 81029 Therapeutic Activities Direc t, Each 15 Minutes Completed 06/03/2023 07756 Manual Crusher Screen Repairer 1/> Area 15 Min Each Region Completed 06/03/2023 76417 Therapy Proc, Neuromuscular Reeducation Of Movement Completed 06/03/2023 30329 Therapy Proc 1/> Area 15Min Ea Completed 06/03/2023 94362 Hot/Cold Pack Completed 05/31/2023 27811 Hot/Cold Pack Completed 05/31/2023 82302 Therapy Proc, Neuromuscular Reeducation Of Movement Completed 05/31/2023 26058 Manual Crusher Screen Repairer 1/> Area 15 Min Each Region Completed 05/31/2023 68547 Therapeutic Activities Direc t, Each 15 Minutes Completed 05/29/2023 80800 Therapeutic Activities Direc t, Each 15 Minutes Completed 05/29/2023 50762 Therapeutic Procedure Group Completed 05/29/2023 12672 Manual Crusher Screen Repairer 1/> Area 15 Min Each Region Completed 05/29/2023 61484 Therapy Proc, Neuromuscular Reeducation Of Movement Completed 05/29/2023 73182 Hot/Cold Pack Completed 05/27/2023 68027 Therapeutic Activities Direc t, Each 15 Minutes Completed 05/27/2023 17894 Hot/Cold Pack Completed 05/27/2023 46966 Therapy Proc, Neuromuscular Reeducation Of Movement Completed 05/27/2023 77580 Manual Crusher Screen Repairer 1/> Area 15 Min Each Region Completed 05/27/2023 97876 Therapeutic Procedure Group Completed 05/24/2023 38522 Therapeutic Activities Direc t, Each 15 Minutes Completed 05/24/2023 49014 Manual Crusher Screen Repairer 1/> Area 15 Min Each Region Completed 05/24/2023 29011 Therapy Proc, Neuromuscular Reeducation Of Movement Completed 05/24/2023 78820 Therapy Proc 1/> Area 15Min Ea Completed 05/24/2023 81513 Hot/Cold Pack Completed 05/22/2023 61007 Therapeutic Activities Direc t, Each 15 Minutes Completed 05/22/2023 28624 Manual Crusher Screen Repairer 1/> Area 15 Min Each Region Completed 05/22/2023 19460 Therapy Proc, Neuromuscular Reeducation Of Movement Completed 05/22/2023 76026 Therapy Proc 1/> Area 15Min Ea Completed 05/22/2023 10597 Hot/Cold Pack Completed 05/20/2023 70252 Therapy Proc 1/> Area 15Min Ea Completed 05/20/2023 81667 Hot/Cold Pack Completed 05/20/2023 20665 Manual Crusher Screen Repairer 1/> Area 15 Min Each Region Completed 05/20/2023 34592 Therapeutic Activities Direc t, Each 15 Minutes Completed 05/20/2023 83974 Therapy Proc, Neuromuscular Reeducation Of Movement Completed 05/17/2023 07175 Therapeutic Activities Direc t, Each 15 Minutes Completed 05/17/2023 37093 Manual Crusher Screen Repairer 1/> Area 15 Min Each Region Completed 05/17/2023 90167 Therapy Proc, Neuromuscular Reeducation Of Movement Completed 05/17/2023 00816 Therapy Proc 1/> Area 15Min Ea Completed 05/17/2023 86442 Hot/Cold Pack Completed 05/15/2023 18405 Therapy Proc 1/> Area 15Min Ea Completed 05/15/2023 90856 Hot/Cold Pack Completed 05/15/2023 06225 Therapy Proc, Neuromuscular Reeducation Of Movement Completed 05/15/2023 96898 Manual Crusher Screen Repairer 1/> Area 15 Min Each Region Completed 05/15/2023 85909 Therapeutic Activities Direc t, Each 15 Minutes Completed 2023 52732 Therapeutic Activities Direc t, Each 15 Minutes Completed 2023 04618 Manual Crusher Screen Repairer 1/> Area 15 Min Each Region Completed 2023 76027 Therapy Proc, Neuromuscular Reeducation Of Movement Completed 2023 94415 Therapy Proc 1/> Area 15Min Ea Completed 2023 91946 Hot/Cold Pack Completed 05/10/2023 36016 Therapeutic Activities Direc t, Each 15 Minutes Completed 05/10/2023 28392 Hot/Cold Pack Completed 05/10/2023 22104 Therapy Proc 1/> Area 15Min Ea Completed 05/10/2023 08944 Therapy Proc, Neuromuscular Reeducation Of Movement Completed 05/10/2023 52798 Manual Crusher Screen Repairer 1/> Area 15 Min Each Region Completed 05/08/2023 91511 Therapeutic Activities Direc t, Each 15 Minutes Completed 05/08/2023 19668 Manual Crusher Screen Repairer 1/> Area 15 Min Each Region Completed 05/08/2023 27766 Therapy Proc, Neuromuscular Reeducation Of Movement Completed 05/08/2023 04826 Therapy Proc 1/> Area 15Min Ea Completed 05/08/2023 01508 Hot/Cold Pack Completed 05/06/2023 16982 Therapeutic Activities Direc t, Each 15 Minutes Completed 05/06/2023 26229 Manual Crusher Screen Repairer 1/> Area 15 Min Each Region Completed 05/06/2023 03552 Therapy Proc, Neuromuscular Reeducation Of Movement Completed 05/06/2023 83627 Therapy Proc 1/> Area 15Min Ea Completed 05/06/2023 57361 Hot/Cold Pack Completed 05/02/2023 78980 Therapeutic Activities Direc t, Each 15 Minutes Completed 05/02/2023 12813 Therapy Proc 1/> Area 15Min Ea Completed 05/02/2023 25510 Manual Crusher Screen Repairer 1/> Area 15 Min Each Region Completed 05/02/2023 95457 Therapy Proc, Neuromuscular Reeducation Of Movement Completed 04/30/2023 47531 Manual Crusher Screen Repairer 1/> Area 15 Min Each Region Completed 04/30/2023 65762 Therapy Proc, Neuromuscular Reeducation Of Movement Completed 04/30/2023 60541 Therapy Proc 1/> Area 15Min Ea Completed 04/30/2023 53199 Hot/Cold Pack Completed 04/24/2023 02561 Manual Crusher Screen Repairer 1/> Area 15 Min Each Region Completed 04/24/2023 90076 Therapy Proc, Neuromuscular Reeducation Of Movement Completed 04/24/2023 55825 Therapy Proc 1/> Area 15Min Ea Completed 04/22/2023 41631 Manual Crusher Screen Repairer 1/> Area 15 Min Each Region Completed 04/22/2023 78520 Therapy Proc, Neuromuscular Reeducation Of Movement Completed 04/22/2023 61856 Therapy Proc 1/> Area 15Min Ea Completed 04/22/2023 91859 Hot/Cold Pack Completed 04/19/2023 49482 Therapy Proc 1/> Area 15Min Ea Completed 04/19/2023 24840 Hot/Cold Pack Completed 04/19/2023 79576 Therapy Proc, Neuromuscular Reeducation Of Movement Completed 04/19/2023 81475 Manual Crusher Screen Repairer 1/> Area 15 Min Each Region Completed 04/18/2023 47818 Manual Crusher Screen Repairer 1/> Area 15 Min Each Region Completed 04/18/2023 50009 Therapy Proc, Neuromuscular Reeducation Of Movement Completed 04/18/2023 01375 Therapy Proc 1/> Area 15Min Ea Completed 04/15/2023 22189 Manual Crusher Screen Repairer 1/> Area 15 Min Each Region Completed 04/15/2023 86414 Therapy Proc, Neuromuscular Reeducation Of Movement Completed 04/15/2023 70775 Therapy Proc 1/> Area 15Min Ea Completed 04/15/2023 91064 Hot/Cold Pack Completed 04/12/2023 18620 Manual Crusher Screen Repairer 1/> Area 15 Min Each Region Completed 04/12/2023 50087 Therapy Proc, Neuromuscular Reeducation Of Movement Completed 04/12/2023 67506 Therapy Proc 1/> Area 15Min Ea Completed 04/12/2023 18422 Hot/Cold Pack Completed 04/10/2023 02394 Manual Crusher Screen Repairer 1/> Area 15 Min Each Region Completed 04/10/2023 93727 Therapy Proc, Neuromuscular Reeducation Of Movement Completed 04/10/2023 74942 Therapy Proc 1/> Area 15Min Ea Completed Medical Devices Description No Information Available Encounters Type Date Location Provider Dx Diagnosis Office Visit 10/08/2023 3:00p [place] Can Ledbetter R60.0 Localized edema R07.89 Other chest pain Office Visit 10/02/2023 3:45p [place] THADDEUS Alanis R60.0 Localized edema Office Visit 09/06/2023 10:30a [place] Dawson pham, DO I10 Essential (primary) hypertension 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 F41.1 Generalized anxiety disorder R60.0 Localized edema Assessments Date Code Description Provider 10/08/2023 R60.0 Localized edema THADDEUS Ferrer 10/08/2023 R07.89 Other chest pain THADDEUS Alanis 10/02/2023 R60.0 Localized edema THADDEUS Ferrer 09/30/2023 R26.2 Difficulty in wa lking, not elsewhere classified Aki Garcia, GABRIELLET 09/30/2023 M25.511 Pain in right shoulder Oziel Garcia, DPT 09/27/2023 R26.2 Difficulty in wa lking, not elsewhere classified Aki Garcia, GABRIELLET 09/27/2023 M25.511 Pain in right shoulder zOiel Garcia, DPT 09/24/2023 R26.2 Difficulty in wa [...] I10 Essential (primary) hyperten [facility] [place] 09/02/2023 R26.2 Difficulty in wa lking, not elsewhere classified Aki Garcia, DPT 09/02/2023 M25.511 Pain in right shoulder Oziel luna Jose, DPT 08/30/2023 R26.2 Difficulty in wa lking, not elsewhere classified Aki Garcia, DPT 08/30/2023 M25.511 Pain in right shoulder Oziel Garcia, DPT 08/27/2023 R26.2 Difficulty in wa lking, not elsewhere classified Aki Garcia, DPT 08/27/2023 M25.511 Pain in right shoulder Oziel jeremy Garcia, DPT 08/23/2023 R26.2 Difficulty in wa [...] lking, not elsewhere classified Aki Garcia, DPT 07/03/2023 M25.511 Pain in right [...] lking, not elsewhere classified Aki Garcia, DPT 04/26/2023 M25.511 Pain in right shoulder Oziel Garcia, DPT 04/24/2023 R26.2 Difficulty in wa lking, not elsewhere classified Aki Garcia, DPT 04/24/2023 M25.511 Pain in right shoulder Oziel Garcia, DPT 04/22/2023 R26.2 Difficulty in wa lking, not elsewhere classified Hoahaoism Smith, DPT 04/22/2023 M25.511 Pain in right shoulder Oziel Garcia, DPT 04/19/2023 R26.2 Difficulty in wa lking, not elsewhere classified Hoahaoism Smith, DPT 04/19/2023 M25.511 Pain in right shoulder [...] Difficulty in wa lking, not elsewhere classified Hoahaoism Smith, DPT 04/10/2023 M25.511 Pain in right shoulder Oziel Garcia, DPT Plan of Treatment Future Appointment(s):* 10/10/2023 3:45 pm - THADDEUS Ledbetter at [place] * 03/13/2024 10:30 am - Dawson Almodovar DO at [place] * 03/06/2024 9:00 am - [facility] [place] [facility] [place] 10/08/2023 - THADDEUS Ledbetter* R60.0 Localized edema* Comments:* - EKG is normal, pulse ox normal - will repeat stat BMP to check sodium - 20mg furosemideIM given in office. Tomorrow will double torsemide to 40mg daily - advised that if symptoms continue to worsen or if she feels short of breath or has increased chest heaviness then she is to go to ED. Pt and daughter are aware. - followup to be scheduled for 2 days. * R07.89 Other chest pain * All* Follow up:* followup Functional Status Description No Information Available Mental Status Description No Information Available Referrals Description No Information Available"
--- OUTSIDE RECORDS SUMMARY | 2023-10-11 13:12 | External Medical Summary | Continuity of Care Document ---
Author Name Unknown Organization [facility] Address [address] [place] [address] Phone [phone] Problems Active Problems Provider Date Essential hypertension Dawson Almodovar DO Onset: 02/19/2018 Osteoarthritis Onset: 0 Bladder muscle dysfunction - overactive Onset: Gastroesophageal reflux disease Dawson Almodovar DO Onset: 02/19/2018 Social History Type Date Description Comments Sex Unknown Tobacco Use Reviewed: 09/06/23 Never Smoked Cigarette s Smoking Status Reviewed: 09/06/23 Never Smoked Cigaret pretty Tobacco Use Reviewed: [...] SIG Qnty Indications Order ing Provider Date [id number] Tablets 2 tablets by mouth every day 30tabs R60.0 Dawson Almodovar DO 10/05/2022 Multi + [place]-3 Adult GummiesChewtabs 1 by mouth every day Dawson Almodovar DO 08/08/2022 Vitamin B ComplexTablets 1 by mouth every day Dawson Almodovar DO 08/08/2022 Losartan Potassium/Hydrochlorothi [id number] Tablets 1 by mouth every day 90tabs I10 Dawson Almodovar DO 03/21/2020 Juice Plus Fibre` Dawson Almodovar DO 02/19/2018 Aspirin Adult Low Xnnv10nl Tablets DR 1 by mouth every day Unknown Citalopram [id number] Tablets 1 by mouth every day 90tabs F41.1 Dawson Almodovar, DO Vitamin D3 Maximum [id number] (5000 Ut) Capsules 1 by mouth once daily Unknown Immunizations CPT Code Status Date Vaccine Lot # [id number] Given 07/14/2009 Pneumococcal Vaccine/Pneu movax 23 60499 Refused 09/06/2023 Sarscov2 Vaccin e 50 mcg/0.5 ML For Im Use 12 Yrs And Older 01852 Refused 09/06/2023 Pneumococcal Conjugate-Pr evnar 20 54825 Refused 10/19/2022 Shingrix 84395 Refused 08/08/2022 Pneumococcal Conjugate-Pr evnar 20 96529 Refused 08/08/2022 Influenza Vac, Split, Preservative Free High Dose Age 65 & > [id number] Refused 04/20/2022 Moderna Sars-Co v-2 (Cov-19) vacc,100 mcg/ 0.5 mL 12Y+EMR Doc Only 47866 Refused 10/16/2021 Influenza Virus Vaccine, Quadrivalent (Cciiv4), Derived From Cell 91126 Refused 10/16/2021 Shingrix 38097 Refused 10/16/2021 Pneumococcal Conjugate-Pr evnar 13 96250 Refused 03/20/2021 Pfizer Sars-Cov -2 (Cov-19) vacc 30mcg/0.3ML 12Y+ EMR Doc Only [id number] Refused 04/17/2019 Influenza Vacci ne, Inactivated, Subunit, Adjuvanted, For Intrmus 81037 Refused 01/29/2019 Tdap (Tetanus, diphtheria & acel. pertussis) Adacel or Boostrix 13722 Refused 01/29/2019 Pneumococcal Conjugate-Pr evnar 13 Vital Signs Date Vital Result Comment 09/06/2023 10:35am BP Systolic 130 mmHg BP Diastolic 78 mmHg Body Temperature 98.2 F Heart Rate 76 /min Respiratory Rate 16 /min Weight 205.31 lb Weight 93.130 kg Height 62 inches 5'2" BMI (Body Mass Index) 37.5 kg/m2 [place] Body Weight 110 lb 02/22/2023 10:40am BP Systolic 138 mmHg BP Diastolic 82 mmHg Body Temperature 98.2 F Heart Rate 84 /min Respiratory Rate 16 /min Weight 196.12 lb Weight 88.962 kg Results Test Acquired Date Facility Test Result H/L Range N ote BMP 09/05/2023 [facility]. [address] [place], [place] [id number] [phone] Glucose 88 mg/dL 70-110 BUN 23 mg/dL 6-25 Creatinine 0.8 mg/dL 0.5-1.2 Sodium 138 mEq/L 135-145 Potassium 4.1 mEq/L 3.5-5.0 Chloride 100 mEq/L 95-107 Co-2 29 mEq/L 24-31 Calcium 9.4 mg/dL 8.5-10.6 GFR 72 ML/MIN/1.73SQM >60 Procedures Date Code Description Status 09/20/2023 63754 Manual Mixing Machine Tender Cork Rod 1/> Area 15 Min Each Region Completed 09/20/2023 26381 Therapy Proc, Neuromuscular Reeducation Of Movement Completed 09/20/2023 44904 Therapy Proc 1/> Area 15Min Ea Completed 09/20/2023 07442 Hot/Cold Pack Completed 09/20/2023 32628 Therapeutic Activities Direc t, Each 15 Minutes Completed 09/16/2023 54274 Therapeutic Activities Direc t, Each 15 Minutes Completed 09/16/2023 06142 Manual Mixing Machine Tender Cork Rod 1/> Area 15 Min Each Region Completed 09/16/2023 37594 Therapy Proc, Neuromuscular Reeducation Of Movement Completed 09/16/2023 02527 Therapy Proc 1/> Area 15Min Ea Completed 09/16/2023 68827 Hot/Cold Pack Completed 09/09/2023 96374 Therapeutic Activities Direc t, Each 15 Minutes Completed 09/09/2023 65631 Hot/Cold Pack Completed 09/09/2023 27915 Therapy Proc 1/> Area 15Min Ea Completed 09/09/2023 55324 Therapy Proc, Neuromuscular Reeducation Of Movement Completed 09/09/2023 42147 Manual Mixing Machine Tender Cork Rod 1/> Area 15 Min Each Region Completed 09/06/2023 1101F PT SCR Future Fall Risk, No Fall Or 1 W/Out Injury Completed 09/05/2023 59869 Venipuncture Routine Complet ed 09/02/2023 43802 Therapeutic Activities Direc t, Each 15 Minutes Completed 09/02/2023 96773 Hot/Cold Pack Completed 09/02/2023 25953 Therapy Proc 1/> Area 15Min Ea Completed 09/02/2023 38020 Therapy Proc, Neuromuscular Reeducation Of Movement Completed 09/02/2023 78644 Manual Mixing Machine Tender Cork Rod 1/> Area 15 Min Each Region Completed 08/30/2023 90819 Therapeutic Activities Direc t, Each 15 Minutes Completed 08/30/2023 33314 Manual Mixing Machine Tender Cork Rod 1/> Area 15 Min Each Region Completed 08/30/2023 87241 Therapy Proc, Neuromuscular Reeducation Of Movement Completed 08/30/2023 07493 Therapy Proc 1/> Area 15Min Ea Completed 08/30/2023 77263 Hot/Cold Pack Completed 08/27/2023 40930 Therapeutic Activities Direc t, Each 15 Minutes Completed 08/27/2023 65649 Manual Mixing Machine Tender Cork Rod 1/> Area 15 Min Each Region Completed 08/27/2023 13294 Therapy Proc, Neuromuscular Reeducation Of Movement Completed 08/27/2023 60037 Therapy Proc 1/> Area 15Min Ea Completed 08/27/2023 24597 Hot/Cold Pack Completed 08/23/2023 69046 Therapy Proc, Neuromuscular Reeducation Of Movement Completed 08/23/2023 76204 Hot/Cold Pack Completed 08/23/2023 74495 Therapy Proc 1/> Area 15Min Ea Completed 08/23/2023 20035 Manual Mixing Machine Tender Cork Rod 1/> Area 15 Min Each Region Completed 08/23/2023 26617 Therapeutic Activities Direc t, Each 15 Minutes Completed 08/20/2023 73515 Therapeutic Activities Direc t, Each 15 Minutes Completed 08/20/2023 53067 Manual Mixing Machine Tender Cork Rod 1/> Area 15 Min Each Region Completed 08/20/2023 53298 Therapy Proc, Neuromuscular Reeducation Of Movement Completed 08/20/2023 39986 Therapy Proc 1/> Area 15Min Ea Completed 08/20/2023 08658 Hot/Cold Pack Completed 08/16/2023 16877 Therapy Proc 1/> Area 15Min Ea Completed 08/16/2023 81991 Hot/Cold Pack Completed 08/16/2023 24411 Therapy Proc, Neuromuscular Reeducation Of Movement Completed 08/16/2023 91125 Manual Mixing Machine Tender Cork Rod 1/> Area 15 Min Each Region Completed 08/16/2023 75647 Therapeutic Activities Direc t, Each 15 Minutes Completed 08/12/2023 46412 Therapeutic Activities Direc t, Each 15 Minutes Completed 08/12/2023 69127 Manual Mixing Machine Tender Cork Rod 1/> Area 15 Min Each Region Completed 08/12/2023 43793 Therapy Proc, Neuromuscular Reeducation Of Movement Completed 08/12/2023 20410 Therapy Proc 1/> Area 15Min Ea Completed 08/12/2023 56057 Hot/Cold Pack Completed 08/09/2023 39274 Therapeutic Activities Direc t, Each 15 Minutes Completed 08/09/2023 95298 Hot/Cold Pack Completed 08/09/2023 58616 Therapy Proc 1/> Area 15Min Ea Completed 08/09/2023 58698 Therapy Proc, Neuromuscular Reeducation Of Movement Completed 08/09/2023 80762 Manual Mixing Machine Tender Cork Rod 1/> Area 15 Min Each Region Completed 08/05/2023 16945 Therapeutic Activities Direc t, Each 15 Minutes Completed 08/05/2023 70691 Manual Mixing Machine Tender Cork Rod 1/> Area 15 Min Each Region Completed 08/05/2023 43185 Therapy Proc, Neuromuscular Reeducation Of Movement Completed 08/05/2023 02718 Hot/Cold Pack Completed 08/02/2023 88963 Therapeutic Activities Direc t, Each 15 Minutes Completed 08/02/2023 32867 Manual Mixing Machine Tender Cork Rod 1/> Area 15 Min Each Region Completed 08/02/2023 53144 Therapy Proc, Neuromuscular Reeducation Of Movement Completed 08/02/2023 95440 Therapy Proc 1/> Area 15Min Ea Completed 08/02/2023 35435 Hot/Cold Pack Completed 07/29/2023 17974 Therapy Proc, Neuromuscular Reeducation Of Movement Completed 07/29/2023 15809 Hot/Cold Pack Completed 07/29/2023 81178 Therapy Proc 1/> Area 15Min Ea Completed 07/29/2023 80913 Manual Mixing Machine Tender Cork Rod 1/> Area 15 Min Each Region Completed 07/29/2023 05262 Therapeutic Activities Direc t, Each 15 Minutes Completed 07/22/2023 53852 Therapeutic Activities Direc t, Each 15 Minutes Completed 07/22/2023 27559 Manual Mixing Machine Tender Cork Rod 1/> Area 15 Min Each Region Completed 07/22/2023 46766 Therapy Proc, Neuromuscular Reeducation Of Movement Completed 07/22/2023 89129 Therapy Proc 1/> Area 15Min Ea Completed 07/22/2023 09623 Hot/Cold Pack Completed 07/19/2023 37917 Therapy Proc, Neuromuscular Reeducation Of Movement Completed 07/19/2023 90914 Hot/Cold Pack Completed 07/19/2023 91454 Therapy Proc 1/> Area 15Min Ea Completed 07/19/2023 14900 Manual Mixing Machine Tender Cork Rod 1/> Area 15 Min Each Region Completed 07/19/2023 78604 Therapeutic Activities Direc t, Each 15 Minutes Completed 07/15/2023 81317 Therapeutic Activities Direc t, Each 15 Minutes Completed 07/15/2023 78677 Manual Mixing Machine Tender Cork Rod 1/> Area 15 Min Each Region Completed 07/15/2023 71378 Therapy Proc, Neuromuscular Reeducation Of Movement Completed 07/15/2023 06557 Hot/Cold Pack Completed 07/12/2023 50316 Therapeutic Activities Direc t, Each 15 Minutes Completed 07/12/2023 08327 Hot/Cold Pack Completed 07/12/2023 54491 Therapy Proc 1/> Area 15Min Ea Completed 07/12/2023 95317 Therapy Proc, Neuromuscular Reeducation Of Movement Completed 07/12/2023 25474 Manual Mixing Machine Tender Cork Rod 1/> Area 15 Min Each Region Completed 07/10/2023 63976 Therapeutic Activities Direc t, Each 15 Minutes Completed 07/10/2023 59741 Manual Mixing Machine Tender Cork Rod 1/> Area 15 Min Each Region Completed 07/10/2023 58245 Therapy Proc, Neuromuscular Reeducation Of Movement Completed 07/10/2023 90384 Therapy Proc 1/> Area 15Min Ea Completed 07/10/2023 00047 Hot/Cold Pack Completed 07/08/2023 74518 Therapeutic Activities Direc t, Each 15 Minutes Completed 07/08/2023 61443 Manual Mixing Machine Tender Cork Rod 1/> Area 15 Min Each Region Completed 07/08/2023 48056 Therapy Proc, Neuromuscular Reeducation Of Movement Completed 07/08/2023 05057 Therapy Proc 1/> Area 15Min Ea Completed 07/08/2023 83029 Hot/Cold Pack Completed 07/05/2023 97926 Therapy Proc 1/> Area 15Min Ea Completed 07/05/2023 21958 Hot/Cold Pack Completed 07/05/2023 93868 Therapy Proc, Neuromuscular Reeducation Of Movement Completed 07/05/2023 20569 Therapeutic Activities Direc t, Each 15 Minutes Completed 07/05/2023 34198 Manual Mixing Machine Tender Cork Rod 1/> Area 15 Min Each Region Completed 07/03/2023 70135 Therapeutic Activities Direc t, Each 15 Minutes Completed 07/03/2023 80872 Manual Mixing Machine Tender Cork Rod 1/> Area 15 Min Each Region Completed 07/03/2023 60645 Therapy Proc, Neuromuscular Reeducation Of Movement Completed 07/03/2023 36832 Therapy Proc 1/> Area 15Min Ea Completed 07/03/2023 78723 Hot/Cold Pack Completed 07/01/2023 82615 Therapy Proc 1/> Area 15Min Ea Completed 07/01/2023 78625 Hot/Cold Pack Completed 07/01/2023 44545 Therapy Proc, Neuromuscular Reeducation Of Movement Completed 07/01/2023 98788 Manual Mixing Machine Tender Cork Rod 1/> Area 15 Min Each Region Completed 07/01/2023 37414 Therapeutic Activities Direc t, Each 15 Minutes Completed 06/28/2023 75834 Therapeutic Activities Direc t, Each 15 Minutes Completed 06/28/2023 07452 Manual Mixing Machine Tender Cork Rod 1/> Area 15 Min Each Region Completed 06/28/2023 34689 Therapy Proc, Neuromuscular Reeducation Of Movement Completed 06/28/2023 69691 Therapy Proc 1/> Area 15Min Ea Completed 06/24/2023 30950 Therapeutic Activities Direc t, Each 15 Minutes Completed 06/24/2023 67660 Hot/Cold Pack Completed 06/24/2023 13391 Therapy Proc 1/> Area 15Min Ea Completed 06/24/2023 00832 Therapy Proc, Neuromuscular Reeducation Of Movement Completed 06/24/2023 45953 Manual Mixing Machine Tender Cork Rod 1/> Area 15 Min Each Region Completed 06/21/2023 03001 Therapeutic Activities Direc t, Each 15 Minutes Completed 06/21/2023 45526 Manual Mixing Machine Tender Cork Rod 1/> Area 15 Min Each Region Completed 06/21/2023 95829 Therapy Proc, Neuromuscular Reeducation Of Movement Completed 06/21/2023 75740 Therapy Proc 1/> Area 15Min Ea Completed 06/21/2023 42182 Hot/Cold Pack Completed 06/19/2023 14216 Therapeutic Activities Direc t, Each 15 Minutes Completed 06/19/2023 36252 Manual Mixing Machine Tender Cork Rod 1/> Area 15 Min Each Region Completed 06/19/2023 16018 Therapy Proc, Neuromuscular Reeducation Of Movement Completed 06/19/2023 59921 Therapy Proc 1/> Area 15Min Ea Completed 06/19/2023 39096 Hot/Cold Pack Completed 06/17/2023 86498 Therapy Proc 1/> Area 15Min Ea Completed 06/17/2023 42222 Hot/Cold Pack Completed 06/17/2023 26618 Manual Mixing Machine Tender Cork Rod 1/> Area 15 Min Each Region Completed 06/17/2023 30908 Therapeutic Activities Direc t, Each 15 Minutes Completed 06/17/2023 51047 Therapy Proc, Neuromuscular Reeducation Of Movement Completed 06/14/2023 85150 Therapeutic Activities Direc t, Each 15 Minutes Completed 06/14/2023 67384 Manual Mixing Machine Tender Cork Rod 1/> Area 15 Min Each Region Completed 06/14/2023 33483 Therapy Proc, Neuromuscular Reeducation Of Movement Completed 06/14/2023 28936 Therapy Proc 1/> Area 15Min Ea Completed 06/14/2023 97693 Hot/Cold Pack Completed 06/12/2023 24492 Therapy Proc, Neuromuscular Reeducation Of Movement Completed 06/12/2023 45788 Hot/Cold Pack Completed 06/12/2023 48882 Therapy Proc 1/> Area 15Min Ea Completed 06/12/2023 80625 Manual Mixing Machine Tender Cork Rod 1/> Area 15 Min Each Region Completed 06/12/2023 41154 Therapeutic Activities Direc t, Each 15 Minutes Completed 06/07/2023 38235 Therapeutic Activities Direc t, Each 15 Minutes Completed 06/07/2023 37989 Manual Mixing Machine Tender Cork Rod 1/> Area 15 Min Each Region Completed 06/07/2023 40909 Therapy Proc, Neuromuscular Reeducation Of Movement Completed 06/07/2023 77612 Therapy Proc 1/> Area 15Min Ea Completed 06/05/2023 45010 Therapeutic Activities Direc t, Each 15 Minutes Completed 06/05/2023 06266 Hot/Cold Pack Completed 06/05/2023 01707 Therapy Proc 1/> Area 15Min Ea Completed 06/05/2023 98154 Therapy Proc, Neuromuscular Reeducation Of Movement Completed 06/05/2023 79231 Manual Mixing Machine Tender Cork Rod 1/> Area 15 Min Each Region Completed 06/03/2023 70395 Therapeutic Activities Direc t, Each 15 Minutes Completed 06/03/2023 57713 Manual Mixing Machine Tender Cork Rod 1/> Area 15 Min Each Region Completed 06/03/2023 15119 Therapy Proc, Neuromuscular Reeducation Of Movement Completed 06/03/2023 99804 Therapy Proc 1/> Area 15Min Ea Completed 06/03/2023 49200 Hot/Cold Pack Completed 05/31/2023 94346 Therapeutic Activities Direc t, Each 15 Minutes Completed 05/31/2023 50198 Manual Mixing Machine Tender Cork Rod 1/> Area 15 Min Each Region Completed 05/31/2023 77749 Therapy Proc, Neuromuscular Reeducation Of Movement Completed 05/31/2023 05481 Hot/Cold Pack Completed 05/29/2023 58873 Hot/Cold Pack Completed 05/29/2023 34008 Therapy Proc, Neuromuscular Reeducation Of Movement Completed 05/29/2023 51414 Therapeutic Procedure Group Completed 05/29/2023 28246 Therapeutic Activities Direc t, Each 15 Minutes Completed 05/29/2023 79348 Manual Mixing Machine Tender Cork Rod 1/> Area 15 Min Each Region Completed 05/27/2023 00420 Therapeutic Activities Direc t, Each 15 Minutes Completed 05/27/2023 26346 Therapeutic Procedure Group Completed 05/27/2023 45856 Manual Mixing Machine Tender Cork Rod 1/> Area 15 Min Each Region Completed 05/27/2023 29598 Therapy Proc, Neuromuscular Reeducation Of Movement Completed 05/27/2023 05640 Hot/Cold Pack Completed 05/24/2023 85986 Therapy Proc, Neuromuscular Reeducation Of Movement Completed 05/24/2023 76456 Hot/Cold Pack Completed 05/24/2023 73590 Therapy Proc 1/> Area 15Min Ea Completed 05/24/2023 16584 Manual Mixing Machine Tender Cork Rod 1/> Area 15 Min Each Region Completed 05/24/2023 47778 Therapeutic Activities Direc t, Each 15 Minutes Completed 05/22/2023 78528 Therapeutic Activities Direc t, Each 15 Minutes Completed 05/22/2023 56954 Manual Mixing Machine Tender Cork Rod 1/> Area 15 Min Each Region Completed 05/22/2023 92378 Therapy Proc, Neuromuscular Reeducation Of Movement Completed 05/22/2023 32910 Therapy Proc 1/> Area 15Min Ea Completed 05/22/2023 15284 Hot/Cold Pack Completed 05/20/2023 46115 Therapeutic Activities Direc t, Each 15 Minutes Completed 05/20/2023 98792 Hot/Cold Pack Completed 05/20/2023 89452 Therapy Proc 1/> Area 15Min Ea Completed 05/20/2023 62376 Therapy Proc, Neuromuscular Reeducation Of Movement Completed 05/20/2023 26293 Manual Mixing Machine Tender Cork Rod 1/> Area 15 Min Each Region Completed 05/17/2023 03217 Therapeutic Activities Direc t, Each 15 Minutes Completed 05/17/2023 83516 Manual Mixing Machine Tender Cork Rod 1/> Area 15 Min Each Region Completed 05/17/2023 64703 Therapy Proc, Neuromuscular Reeducation Of Movement Completed 05/17/2023 20178 Therapy Proc 1/> Area 15Min Ea Completed 05/17/2023 03752 Hot/Cold Pack Completed 05/15/2023 06185 Therapeutic Activities Direc t, Each 15 Minutes Completed 05/15/2023 62206 Manual Mixing Machine Tender Cork Rod 1/> Area 15 Min Each Region Completed 05/15/2023 65701 Therapy Proc, Neuromuscular Reeducation Of Movement Completed 05/15/2023 86905 Therapy Proc 1/> Area 15Min Ea Completed 05/15/2023 27223 Hot/Cold Pack Completed 2023 96608 Hot/Cold Pack Completed 2023 56287 Manual Mixing Machine Tender Cork Rod 1/> Area 15 Min Each Region Completed 2023 72463 Therapy Proc 1/> Area 15Min Ea Completed 2023 43709 Therapeutic Activities Direc t, Each 15 Minutes Completed 2023 21032 Therapy Proc, Neuromuscular Reeducation Of Movement Completed 05/10/2023 53892 Therapeutic Activities Direc t, Each 15 Minutes Completed 05/10/2023 01173 Manual Mixing Machine Tender Cork Rod 1/> Area 15 Min Each Region Completed 05/10/2023 96137 Therapy Proc, Neuromuscular Reeducation Of Movement Completed 05/10/2023 81099 Therapy Proc 1/> Area 15Min Ea Completed 05/10/2023 41739 Hot/Cold Pack Completed 05/08/2023 50868 Therapy Proc, Neuromuscular Reeducation Of Movement Completed 05/08/2023 73207 Hot/Cold Pack Completed 05/08/2023 32433 Therapy Proc 1/> Area 15Min Ea Completed 05/08/2023 35443 Manual Mixing Machine Tender Cork Rod 1/> Area 15 Min Each Region Completed 05/08/2023 01444 Therapeutic Activities Direc t, Each 15 Minutes Completed 05/06/2023 37478 Therapeutic Activities Direc t, Each 15 Minutes Completed 05/06/2023 89834 Manual Mixing Machine Tender Cork Rod 1/> Area 15 Min Each Region Completed 05/06/2023 47723 Therapy Proc, Neuromuscular Reeducation Of Movement Completed 05/06/2023 59755 Therapy Proc 1/> Area 15Min Ea Completed 05/06/2023 50886 Hot/Cold Pack Completed 05/02/2023 16018 Therapeutic Activities Direc t, Each 15 Minutes Completed 05/02/2023 39146 Therapy Proc 1/> Area 15Min Ea Completed 05/02/2023 19162 Therapy Proc, Neuromuscular Reeducation Of Movement Completed 05/02/2023 84358 Manual Mixing Machine Tender Cork Rod 1/> Area 15 Min Each Region Completed 04/30/2023 96368 Manual Mixing Machine Tender Cork Rod 1/> Area 15 Min Each Region Completed 04/30/2023 38466 Therapy Proc, Neuromuscular Reeducation Of Movement Completed 04/30/2023 06447 Therapy Proc 1/> Area 15Min Ea Completed 04/30/2023 64528 Hot/Cold Pack Completed 04/24/2023 38106 Manual Mixing Machine Tender Cork Rod 1/> Area 15 Min Each Region Completed 04/24/2023 54497 Therapy Proc, Neuromuscular Reeducation Of Movement Completed 04/24/2023 01502 Therapy Proc 1/> Area 15Min Ea Completed 04/22/2023 32346 Manual Mixing Machine Tender Cork Rod 1/> Area 15 Min Each Region Completed 04/22/2023 26718 Therapy Proc, Neuromuscular Reeducation Of Movement Completed 04/22/2023 98168 Therapy Proc 1/> Area 15Min Ea Completed 04/22/2023 31248 Hot/Cold Pack Completed 04/19/2023 28843 Manual Mixing Machine Tender Cork Rod 1/> Area 15 Min Each Region Completed 04/19/2023 79985 Hot/Cold Pack Completed 04/19/2023 15171 Therapy Proc, Neuromuscular Reeducation Of Movement Completed 04/19/2023 44407 Therapy Proc 1/> Area 15Min Ea Completed 04/18/2023 18869 Manual Mixing Machine Tender Cork Rod 1/> Area 15 Min Each Region Completed 04/18/2023 51616 Therapy Proc, Neuromuscular Reeducation Of Movement Completed 04/18/2023 80622 Therapy Proc 1/> Area 15Min Ea Completed 04/15/2023 71281 Manual Mixing Machine Tender Cork Rod 1/> Area 15 Min Each Region Completed 04/15/2023 20690 Therapy Proc, Neuromuscular Reeducation Of Movement Completed 04/15/2023 85061 Therapy Proc 1/> Area 15Min Ea Completed 04/15/2023 19462 Hot/Cold Pack Completed 04/12/2023 01131 Manual Mixing Machine Tender Cork Rod 1/> Area 15 Min Each Region Completed 04/12/2023 52075 Therapy Proc, Neuromuscular Reeducation Of Movement Completed 04/12/2023 58584 Therapy Proc 1/> Area 15Min Ea Completed 04/12/2023 11373 Hot/Cold Pack Completed 04/10/2023 22845 Therapy Proc 1/> Area 15Min Ea Completed 04/10/2023 90016 Manual Mixing Machine Tender Cork Rod 1/> Area 15 Min Each Region Completed 04/10/2023 97282 Therapy Proc, Neuromuscular Reeducation Of Movement Completed 04/08/2023 40795 Manual Mixing Machine Tender Cork Rod 1/> Area 15 Min Each Region Completed 04/08/2023 79933 Therapy Proc, Neuromuscular Reeducation Of Movement Completed 04/08/2023 22621 Therapy Proc 1/> Area 15Min Ea Completed 04/05/2023 85222 Manual Mixing Machine Tender Cork Rod 1/> Area 15 Min Each Region Completed 04/05/2023 86664 Therapy Proc, Neuromuscular Reeducation Of Movement Completed 04/05/2023 96530 Therapy Proc 1/> Area 15Min Ea Completed 04/03/2023 94815 Manual Mixing Machine Tender Cork Rod 1/> Area 15 Min Each Region Completed 04/03/2023 09823 Therapy Proc 1/> Area 15Min Ea Completed 04/03/2023 32643 Therapy Proc, Neuromuscular Reeducation Of Movement Completed 04/01/2023 46344 Manual Mixing Machine Tender Cork Rod 1/> Area 15 Min Each Region Completed 04/01/2023 09172 Therapy Proc, Neuromuscular Reeducation Of Movement Completed 04/01/2023 00943 Therapy Proc 1/> Area 15Min Ea Completed 03/29/2023 09742 Manual Mixing Machine Tender Cork Rod 1/> Area 15 Min Each Region Completed 03/29/2023 43069 Therapy Proc, Neuromuscular Reeducation Of Movement Completed 03/29/2023 01935 Therapy Proc 1/> Area 15Min Ea Completed Medical Devices Description No Information Available Encounters Type Date Location Provider Dx Diagnosis Office Visit 09/06/2023 10:[facility] Dawson Almodovar DO I10 Essential (pr imary) hypertension 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 F41.1 Generalized anxiety disorder R60.0 Localized edema Assessments Date Code Description Provider 09/20/2023 R26.2 Difficulty in wa lking, not elsewhere classified Aki Garcia, DPT 09/20/2023 M25.511 Pain in right shoulder Oziel luna Jose, DPT 09/16/2023 R26.2 Difficulty in wa lking, not elsewhere classified Aki Garcia, DPT 09/16/2023 M25.511 Pain in right shoulder Oziel jeremy Garcia, DPT 09/09/2023 R26.2 Difficulty in wa lking, not elsewhere classified Aki Garcia, DPT 09/09/2023 M25.511 Pain in right shoulder Oziel jeremy Garcia, DPT 09/06/2023 I10 Essential (primary) hyperten [...] I10 Essential (primary) hyperten [facility] 09/02/2023 R26.2 Difficulty in wa lking, not elsewhere classified Aki Garcia, DPT 09/02/2023 M25.511 Pain in right shoulder Oziel jeremy Garcia, DPT 08/30/2023 R26.2 Difficulty in wa lking, not elsewhere classified Aki Garcia, DPT 08/30/2023 M25.511 Pain in right shoulder Oziel jeremy Garcia, DPT 08/27/2023 R26.2 Difficulty in wa lking, not elsewhere classified Aki Garcia, DPT 08/27/2023 M25.511 Pain in right shoulder Oziel jeremy Garcia, DPT 08/23/2023 R26.2 Difficulty in wa lking, not elsewhere classified Aki Garcia, DPT 08/23/2023 M25.511 Pain in right shoulder Oziel jeremy Garcia, DPT 08/20/2023 R26.2 Difficulty in wa [...] lking, not elsewhere classified Aik Garcia, DPT 07/29/2023 M25.511 Pain in right [...] in wa lking, not elsewhere classified Aki Garcia DPT 06/17/2023 M25.511 Pain in right shoulder [...] lking, not elsewhere classified Aki Garcia, DPT 04/22/2023 M25.511 Pain in right shoulder [...] Pain in right shoulder Oziel Garcia, DPT 04/08/2023 R26.2 Difficulty in wa lking, not elsewhere classified Aki Garcia, DPT 04/08/2023 M25.511 Pain in right shoulder Oziel Gracia, DPT 04/05/2023 R26.2 Difficulty in wa lking, not elsewhere classified Aki Garcia, DPT 04/05/2023 M25.511 Pain in right shoulder Oziel Garcia, DPT 04/03/2023 R26.2 Difficulty in wa lking, not elsewhere classified Aki Garcia, DPT 04/03/2023 M25.511 Pain in right shoulder Oziel Garcia, DPT 04/01/2023 R26.2 Difficulty in wa lking, not elsewhere classified Aki Garcia, DPT 04/01/2023 M25.511 Pain in right shoulder Oziel Garcia, DPT 03/29/2023 R26.2 Difficulty in wa lking, not elsewhere classified Aki Garcia, DPT 03/29/2023 M25.511 Pain in right shoulder Oziel Garcia, DPT Plan of Treatment Future Appointment(s):* 03/13/2024 10:30 am - [facility] * 03/06/2024 9:00 am - [facility] Functional Status Description No Information Available Mental Status Description No Information Available Referrals Description No Information Available
--- OUTSIDE RECORDS SUMMARY | 2023-10-11 13:12 | External Medical Summary | Continuity of Care Document ---
Author Name Unknown Organization [facility] Address [address], [place] [address] Phone [phone] Problems Active Problems Provider Date Essential hypertension Dawson Almodovar DO Onset: 02/19/2018 Osteoarthritis Onset: 0 Bladder muscle dysfunction - overactive Onset: Gastroesophageal reflux disease Dawson Almodovar DO Onset: 02/19/2018 Social History Type Date Description Comments Sex Unknown Tobacco Use Reviewed: 09/06/23 Never Smoked Cigarette s Smoking Status Reviewed: 10/02/23 Never Smoked Cigaret pretty Tobacco Use Reviewed: [...] SIG Qnty Indications Order ing Provider Date [id number] Tablets 1 tablet by mouth once daily for swelling 30tabs R60.0 THADDEUS Ledbetter 10/02/2023 Multi + [place]-3 Adult GummiesChewtabs 1 by mouth every day Dawson Almodovar DO 08/08/2022 Vitamin B ComplexTablets 1 by mouth every day Dawson Almodovar DO 08/08/2022 Losartan Potassium/Hydrochloroth [id number] Tablets 1 by mouth every day 90tabs I10 Dawson Almodovar DO 03/21/2020 Juice Plus Fibre` Dawson Almodovar DO 02/19/2018 Aspirin Adult Low Nntr75rx Tablets DR 1 by mouth every day Unknown Citalopram [id number] Tablets 1 by mouth every day 90tabs F41.1 Dawson CintiaAlvin Almodovar, DO Vitamin D3 Maximum [id number] (5000 Ut) Capsules 1 by mouth once daily Unknown Immunizations CPT Code Status Date Vaccine Lot # [id number] Given 07/14/2009 Pneumococcal Vaccine/Pneu movax 23 02201 Refused 09/06/2023 Sarscov2 Vaccin e 50 mcg/0.5 ML For Im Use 12 Yrs And Older 76021 Refused 09/06/2023 Pneumococcal Conjugate-Pr evnar 20 96435 Refused 10/19/2022 Shingrix 42083 Refused 08/08/2022 Pneumococcal Conjugate-Pr evnar 20 72963 Refused 08/08/2022 Influenza Vac, Split, Preservative Free High Dose Age 65 & > 05067 Refused 04/20/2022 Moderna Sars-Co v-2 (Cov-19) vacc,100 mcg/ 0.5 mL 12Y+EMR Doc Only 52135 Refused 10/16/2021 Influenza Virus Vaccine, Quadrivalent (Cciiv4), Derived From Cell 05110 Refused 10/16/2021 Shingrix 26743 Refused 10/16/2021 Pneumococcal Conjugate-Pr evnar 13 38890 Refused 03/20/2021 Pfizer Sars-Cov -2 (Cov-19) vacc 30mcg/0.3ML 12Y+ EMR Doc Only 20525 Refused 04/17/2019 Influenza Vacci ne, Inactivated, Subunit, Adjuvanted, For [facility] [place] [address] Refused 01/29/2019 Tdap (Tetanus, diphtheria & acel. pertussis) Adacel or Boostrix 76530 Refused 01/29/2019 Pneumococcal Conjugate-Pr evnar 13 Vital Signs Date Vital Result Comment 10/02/2023 3:36pm BP Systolic 160 mmHg BP Diastolic 100 mmHg Body Temperature 97.4 F Heart Rate 76 /min Respiratory Rate 20 /min Weight 217.00 lb Weight 98.431 kg 09/06/2023 10:35am BP Systolic 130 mmHg BP Diastolic 78 mmHg Body Temperature 98.2 F Heart Rate 76 /min Respiratory Rate 16 /min Weight 205.31 lb Weight 93.130 kg Height 62 inches 5'2" BMI (Body Mass Index) 37.5 kg/m2 [place] Body Weight 110 lb Results Test Acquired Date Facility Test Result H/L Range N ote Laboratory test finding 10/02/2023 [facility] [address] [place] [address] [phone] BNP <pending> BMP 09/05/2023 [facility] [address] [place] [address] [phone] Glucose 88 mg/dL 70-110 BUN 23 mg/dL 6-25 Creatinine 0.8 mg/dL 0.5-1.2 Sodium 138 mEq/L 135-145 Potassium 4.1 mEq/L 3.5-5.0 Chloride 100 mEq/L 95-107 Co-2 29 mEq/L 24-31 Calcium 9.4 mg/dL 8.5-10.6 GFR 72 ML/MIN/1.73SQM >60 Procedures Date Code Description Status 10/02/2023 81387 Venipuncture Routine Complet ed 09/27/2023 12789 Therapeutic Activities Direc t, Each 15 Minutes Completed 09/27/2023 67832 Hot/Cold Pack Completed 09/27/2023 97648 Therapy Proc 1/> Area 15Min Ea Completed 09/27/2023 24207 Manual Help Desk Intern 1/> Area 15 Min Each Region Completed 09/27/2023 60670 Therapy Proc, Neuromuscular Reeducation Of Movement Completed 09/24/2023 39250 Therapeutic Activities Direc t, Each 15 Minutes Completed 09/24/2023 15164 Manual Help Desk Intern 1/> Area 15 Min Each Region Completed 09/24/2023 86554 Therapy Proc, Neuromuscular Reeducation Of Movement Completed 09/24/2023 75850 Therapy Proc 1/> Area 15Min Ea Completed 09/24/2023 74017 Hot/Cold Pack Completed 09/20/2023 64451 Therapeutic Activities Direc t, Each 15 Minutes Completed 09/20/2023 57699 Manual Help Desk Intern 1/> Area 15 Min Each Region Completed 09/20/2023 85158 Therapy Proc, Neuromuscular Reeducation Of Movement Completed 09/20/2023 53261 Therapy Proc 1/> Area 15Min Ea Completed 09/20/2023 89493 Hot/Cold Pack Completed 09/16/2023 05380 Therapy Proc 1/> Area 15Min Ea Completed 09/16/2023 01035 Hot/Cold Pack Completed 09/16/2023 03833 Therapy Proc, Neuromuscular Reeducation Of Movement Completed 09/16/2023 22058 Manual Help Desk Intern 1/> Area 15 Min Each Region Completed 09/16/2023 76976 Therapeutic Activities Direc t, Each 15 Minutes Completed 09/09/2023 74550 Therapeutic Activities Direc t, Each 15 Minutes Completed 09/09/2023 31399 Manual Help Desk Intern 1/> Area 15 Min Each Region Completed 09/09/2023 86759 Therapy Proc, Neuromuscular Reeducation Of Movement Completed 09/09/2023 33752 Therapy Proc 1/> Area 15Min Ea Completed 09/09/2023 75295 Hot/Cold Pack Completed 09/06/2023 1101F PT SCR Future Fall Risk, No Fall Or 1 W/Out Injury Completed 09/05/2023 52930 Venipuncture Routine Complet ed 09/02/2023 31506 Therapeutic Activities Direc t, Each 15 Minutes Completed 09/02/2023 13775 Manual Help Desk Intern 1/> Area 15 Min Each Region Completed 09/02/2023 30257 Therapy Proc, Neuromuscular Reeducation Of Movement Completed 09/02/2023 34112 Therapy Proc 1/> Area 15Min Ea Completed 09/02/2023 36070 Hot/Cold Pack Completed 08/30/2023 96834 Therapy Proc 1/> Area 15Min Ea Completed 08/30/2023 01912 Hot/Cold Pack Completed 08/30/2023 98031 Manual Help Desk Intern 1/> Area 15 Min Each Region Completed 08/30/2023 46869 Therapeutic Activities Direc t, Each 15 Minutes Completed 08/30/2023 83591 Therapy Proc, Neuromuscular Reeducation Of Movement Completed 08/27/2023 79730 Therapeutic Activities Direc t, Each 15 Minutes Completed 08/27/2023 68158 Manual Help Desk Intern 1/> Area 15 Min Each Region Completed 08/27/2023 72200 Therapy Proc, Neuromuscular Reeducation Of Movement Completed 08/27/2023 69512 Therapy Proc 1/> Area 15Min Ea Completed 08/27/2023 95290 Hot/Cold Pack Completed 08/23/2023 53379 Therapeutic Activities Direc t, Each 15 Minutes Completed 08/23/2023 36186 Manual Help Desk Intern 1/> Area 15 Min Each Region Completed 08/23/2023 75964 Therapy Proc, Neuromuscular Reeducation Of Movement Completed 08/23/2023 26491 Therapy Proc 1/> Area 15Min Ea Completed 08/23/2023 19402 Hot/Cold Pack Completed 08/20/2023 82828 Hot/Cold Pack Completed 08/20/2023 87963 Therapy Proc 1/> Area 15Min Ea Completed 08/20/2023 66957 Manual Help Desk Intern 1/> Area 15 Min Each Region Completed 08/20/2023 96671 Therapeutic Activities Direc t, Each 15 Minutes Completed 08/20/2023 80642 Therapy Proc, Neuromuscular Reeducation Of Movement Completed 08/16/2023 69265 Therapeutic Activities Direc t, Each 15 Minutes Completed 08/16/2023 97916 Manual Help Desk Intern 1/> Area 15 Min Each Region Completed 08/16/2023 76323 Therapy Proc, Neuromuscular Reeducation Of Movement Completed 08/16/2023 85722 Therapy Proc 1/> Area 15Min Ea Completed 08/16/2023 88252 Hot/Cold Pack Completed 08/12/2023 10751 Therapy Proc, Neuromuscular Reeducation Of Movement Completed 08/12/2023 09536 Hot/Cold Pack Completed 08/12/2023 53202 Therapy Proc 1/> Area 15Min Ea Completed 08/12/2023 54108 Manual Help Desk Intern 1/> Area 15 Min Each Region Completed 08/12/2023 89437 Therapeutic Activities Direc t, Each 15 Minutes Completed 08/09/2023 98309 Therapeutic Activities Direc t, Each 15 Minutes Completed 08/09/2023 58858 Manual Help Desk Intern 1/> Area 15 Min Each Region Completed 08/09/2023 06019 Therapy Proc, Neuromuscular Reeducation Of Movement Completed 08/09/2023 01536 Therapy Proc 1/> Area 15Min Ea Completed 08/09/2023 51487 Hot/Cold Pack Completed 08/05/2023 70759 Hot/Cold Pack Completed 08/05/2023 12422 Therapy Proc, Neuromuscular Reeducation Of Movement Completed 08/05/2023 18877 Therapeutic Activities Direc t, Each 15 Minutes Completed 08/05/2023 59106 Manual Help Desk Intern 1/> Area 15 Min Each Region Completed 08/02/2023 62604 Manual Help Desk Intern 1/> Area 15 Min Each Region Completed 08/02/2023 99631 Therapy Proc, Neuromuscular Reeducation Of Movement Completed 08/02/2023 13815 Therapy Proc 1/> Area 15Min Ea Completed 08/02/2023 75553 Hot/Cold Pack Completed 08/02/2023 01144 Therapeutic Activities Direc t, Each 15 Minutes Completed 07/29/2023 14870 Hot/Cold Pack Completed 07/29/2023 98328 Therapy Proc 1/> Area 15Min Ea Completed 07/29/2023 06558 Therapy Proc, Neuromuscular Reeducation Of Movement Completed 07/29/2023 86071 Manual Help Desk Intern 1/> Area 15 Min Each Region Completed 07/29/2023 12230 Therapeutic Activities Direc t, Each 15 Minutes Completed 07/22/2023 61319 Therapeutic Activities Direc t, Each 15 Minutes Completed 07/22/2023 84447 Manual Help Desk Intern 1/> Area 15 Min Each Region Completed 07/22/2023 77821 Therapy Proc, Neuromuscular Reeducation Of Movement Completed 07/22/2023 40387 Therapy Proc 1/> Area 15Min Ea Completed 07/22/2023 57961 Hot/Cold Pack Completed 07/19/2023 97774 Therapeutic Activities Direc t, Each 15 Minutes Completed 07/19/2023 45848 Hot/Cold Pack Completed 07/19/2023 62929 Therapy Proc 1/> Area 15Min Ea Completed 07/19/2023 14655 Therapy Proc, Neuromuscular Reeducation Of Movement Completed 07/19/2023 17151 Manual Help Desk Intern 1/> Area 15 Min Each Region Completed 07/15/2023 85113 Therapeutic Activities Direc t, Each 15 Minutes Completed 07/15/2023 18917 Manual Help Desk Intern 1/> Area 15 Min Each Region Completed 07/15/2023 17378 Therapy Proc, Neuromuscular Reeducation Of Movement Completed 07/15/2023 56675 Hot/Cold Pack Completed 07/12/2023 62779 Therapeutic Activities Direc t, Each 15 Minutes Completed 07/12/2023 23912 Manual Help Desk Intern 1/> Area 15 Min Each Region Completed 07/12/2023 87593 Therapy Proc, Neuromuscular Reeducation Of Movement Completed 07/12/2023 92215 Therapy Proc 1/> Area 15Min Ea Completed 07/12/2023 87741 Hot/Cold Pack Completed 07/10/2023 70470 Hot/Cold Pack Completed 07/10/2023 72859 Therapy Proc 1/> Area 15Min Ea Completed 07/10/2023 93835 Manual Help Desk Intern 1/> Area 15 Min Each Region Completed 07/10/2023 90876 Therapeutic Activities Direc t, Each 15 Minutes Completed 07/10/2023 18836 Therapy Proc, Neuromuscular Reeducation Of Movement Completed 07/08/2023 03729 Therapeutic Activities Direc t, Each 15 Minutes Completed 07/08/2023 25711 Manual Help Desk Intern 1/> Area 15 Min Each Region Completed 07/08/2023 36388 Therapy Proc, Neuromuscular Reeducation Of Movement Completed 07/08/2023 82187 Therapy Proc 1/> Area 15Min Ea Completed 07/08/2023 94972 Hot/Cold Pack Completed 07/05/2023 51772 Therapeutic Activities Direc t, Each 15 Minutes Completed 07/05/2023 29461 Manual Help Desk Intern 1/> Area 15 Min Each Region Completed 07/05/2023 91312 Therapy Proc, Neuromuscular Reeducation Of Movement Completed 07/05/2023 16125 Therapy Proc 1/> Area 15Min Ea Completed 07/05/2023 11987 Hot/Cold Pack Completed 07/03/2023 69313 Hot/Cold Pack Completed 07/03/2023 58647 Therapy Proc 1/> Area 15Min Ea Completed 07/03/2023 29812 Manual Help Desk Intern 1/> Area 15 Min Each Region Completed 07/03/2023 34033 Therapeutic Activities Direc t, Each 15 Minutes Completed 07/03/2023 66042 Therapy Proc, Neuromuscular Reeducation Of Movement Completed 07/01/2023 74082 Therapeutic Activities Direc t, Each 15 Minutes Completed 07/01/2023 31290 Manual Help Desk Intern 1/> Area 15 Min Each Region Completed 07/01/2023 23401 Therapy Proc, Neuromuscular Reeducation Of Movement Completed 07/01/2023 15482 Therapy Proc 1/> Area 15Min Ea Completed 07/01/2023 97611 Hot/Cold Pack Completed 06/28/2023 77364 Therapy Proc, Neuromuscular Reeducation Of Movement Completed 06/28/2023 23255 Therapy Proc 1/> Area 15Min Ea Completed 06/28/2023 85790 Manual Help Desk Intern 1/> Area 15 Min Each Region Completed 06/28/2023 18703 Therapeutic Activities Direc t, Each 15 Minutes Completed 06/24/2023 43652 Therapeutic Activities Direc t, Each 15 Minutes Completed 06/24/2023 70738 Manual Help Desk Intern 1/> Area 15 Min Each Region Completed 06/24/2023 45926 Therapy Proc, Neuromuscular Reeducation Of Movement Completed 06/24/2023 05776 Therapy Proc 1/> Area 15Min Ea Completed 06/24/2023 81761 Hot/Cold Pack Completed 06/21/2023 56391 Hot/Cold Pack Completed 06/21/2023 02931 Therapy Proc 1/> Area 15Min Ea Completed 06/21/2023 69141 Therapy Proc, Neuromuscular Reeducation Of Movement Completed 06/21/2023 87017 Therapeutic Activities Direc t, Each 15 Minutes Completed 06/21/2023 25124 Manual Help Desk Intern 1/> Area 15 Min Each Region Completed 06/19/2023 65826 Manual Help Desk Intern 1/> Area 15 Min Each Region Completed 06/19/2023 45990 Therapeutic Activities Direc t, Each 15 Minutes Completed 06/19/2023 63203 Hot/Cold Pack Completed 06/19/2023 14858 Therapy Proc, Neuromuscular Reeducation Of Movement Completed 06/19/2023 63073 Therapy Proc 1/> Area 15Min Ea Completed 06/17/2023 56343 Therapeutic Activities Direc t, Each 15 Minutes Completed 06/17/2023 67090 Manual Help Desk Intern 1/> Area 15 Min Each Region Completed 06/17/2023 17933 Therapy Proc, Neuromuscular Reeducation Of Movement Completed 06/17/2023 58354 Therapy Proc 1/> Area 15Min Ea Completed 06/17/2023 12169 Hot/Cold Pack Completed 06/14/2023 58616 Therapeutic Activities Direc t, Each 15 Minutes Completed 06/14/2023 46356 Manual Help Desk Intern 1/> Area 15 Min Each Region Completed 06/14/2023 17074 Therapy Proc, Neuromuscular Reeducation Of Movement Completed 06/14/2023 02286 Therapy Proc 1/> Area 15Min Ea Completed 06/14/2023 01855 Hot/Cold Pack Completed 06/12/2023 23574 Therapy Proc, Neuromuscular Reeducation Of Movement Completed 06/12/2023 28423 Hot/Cold Pack Completed 06/12/2023 16850 Therapy Proc 1/> Area 15Min Ea Completed 06/12/2023 04208 Manual Help Desk Intern 1/> Area 15 Min Each Region Completed 06/12/2023 50447 Therapeutic Activities Direc t, Each 15 Minutes Completed 06/07/2023 44910 Therapeutic Activities Direc t, Each 15 Minutes Completed 06/07/2023 65626 Manual Help Desk Intern 1/> Area 15 Min Each Region Completed 06/07/2023 45603 Therapy Proc, Neuromuscular Reeducation Of Movement Completed 06/07/2023 93445 Therapy Proc 1/> Area 15Min Ea Completed 06/05/2023 34572 Therapeutic Activities Direc t, Each 15 Minutes Completed 06/05/2023 69547 Manual Help Desk Intern 1/> Area 15 Min Each Region Completed 06/05/2023 04832 Therapy Proc, Neuromuscular Reeducation Of Movement Completed 06/05/2023 62267 Therapy Proc 1/> Area 15Min Ea Completed 06/05/2023 81571 Hot/Cold Pack Completed 06/03/2023 35601 Hot/Cold Pack Completed 06/03/2023 82976 Therapy Proc 1/> Area 15Min Ea Completed 06/03/2023 93532 Manual Help Desk Intern 1/> Area 15 Min Each Region Completed 06/03/2023 85299 Therapeutic Activities Direc t, Each 15 Minutes Completed 06/03/2023 21150 Therapy Proc, Neuromuscular Reeducation Of Movement Completed 05/31/2023 86165 Therapeutic Activities Direc t, Each 15 Minutes Completed 05/31/2023 48689 Manual Help Desk Intern 1/> Area 15 Min Each Region Completed 05/31/2023 89775 Therapy Proc, Neuromuscular Reeducation Of Movement Completed 05/31/2023 85301 Hot/Cold Pack Completed 05/29/2023 56279 Therapy Proc, Neuromuscular Reeducation Of Movement Completed 05/29/2023 60420 Hot/Cold Pack Completed 05/29/2023 69344 Manual Help Desk Intern 1/> Area 15 Min Each Region Completed 05/29/2023 32836 Therapeutic Procedure Group Completed 05/29/2023 89077 Therapeutic Activities Direc t, Each 15 Minutes Completed 05/27/2023 69187 Therapeutic Activities Direc t, Each 15 Minutes Completed 05/27/2023 59620 Therapeutic Procedure Group Completed 05/27/2023 93760 Manual Help Desk Intern 1/> Area 15 Min Each Region Completed 05/27/2023 89482 Therapy Proc, Neuromuscular Reeducation Of Movement Completed 05/27/2023 16024 Hot/Cold Pack Completed 05/24/2023 88835 Therapeutic Activities Direc t, Each 15 Minutes Completed 05/24/2023 25289 Hot/Cold Pack Completed 05/24/2023 72655 Therapy Proc 1/> Area 15Min Ea Completed 05/24/2023 80457 Therapy Proc, Neuromuscular Reeducation Of Movement Completed 05/24/2023 76329 Manual Help Desk Intern 1/> Area 15 Min Each Region Completed 05/22/2023 10290 Therapeutic Activities Direc t, Each 15 Minutes Completed 05/22/2023 13912 Manual Help Desk Intern 1/> Area 15 Min Each Region Completed 05/22/2023 27082 Therapy Proc, Neuromuscular Reeducation Of Movement Completed 05/22/2023 33636 Therapy Proc 1/> Area 15Min Ea Completed 05/22/2023 87219 Hot/Cold Pack Completed 05/20/2023 76124 Therapeutic Activities Direc t, Each 15 Minutes Completed 05/20/2023 97244 Manual Help Desk Intern 1/> Area 15 Min Each Region Completed 05/20/2023 36953 Therapy Proc, Neuromuscular Reeducation Of Movement Completed 05/20/2023 38273 Therapy Proc 1/> Area 15Min Ea Completed 05/20/2023 72701 Hot/Cold Pack Completed 05/17/2023 90606 Hot/Cold Pack Completed 05/17/2023 78823 Therapy Proc 1/> Area 15Min Ea Completed 05/17/2023 76028 Manual Help Desk Intern 1/> Area 15 Min Each Region Completed 05/17/2023 60492 Therapeutic Activities Direc t, Each 15 Minutes Completed 05/17/2023 95639 Therapy Proc, Neuromuscular Reeducation Of Movement Completed 05/15/2023 65867 Therapeutic Activities Direc t, Each 15 Minutes Completed 05/15/2023 54081 Manual Help Desk Intern 1/> Area 15 Min Each Region Completed 05/15/2023 75774 Therapy Proc, Neuromuscular Reeducation Of Movement Completed 05/15/2023 73398 Therapy Proc 1/> Area 15Min Ea Completed 05/15/2023 88846 Hot/Cold Pack Completed 2023 15241 Therapeutic Activities Direc t, Each 15 Minutes Completed 2023 90335 Manual Help Desk Intern 1/> Area 15 Min Each Region Completed 2023 06761 Therapy Proc, Neuromuscular Reeducation Of Movement Completed 2023 70733 Therapy Proc 1/> Area 15Min Ea Completed 2023 18857 Hot/Cold Pack Completed 05/10/2023 60766 Hot/Cold Pack Completed 05/10/2023 32097 Therapy Proc 1/> Area 15Min Ea Completed 05/10/2023 70462 Manual Help Desk Intern 1/> Area 15 Min Each Region Completed 05/10/2023 51591 Therapeutic Activities Direc t, Each 15 Minutes Completed 05/10/2023 34011 Therapy Proc, Neuromuscular Reeducation Of Movement Completed 05/08/2023 15580 Therapeutic Activities Direc t, Each 15 Minutes Completed 05/08/2023 14766 Manual Help Desk Intern 1/> Area 15 Min Each Region Completed 05/08/2023 97517 Therapy Proc, Neuromuscular Reeducation Of Movement Completed 05/08/2023 29999 Therapy Proc 1/> Area 15Min Ea Completed 05/08/2023 03349 Hot/Cold Pack Completed 05/06/2023 99325 Manual Help Desk Intern 1/> Area 15 Min Each Region Completed 05/06/2023 42869 Hot/Cold Pack Completed 05/06/2023 52927 Therapy Proc 1/> Area 15Min Ea Completed 05/06/2023 83564 Therapy Proc, Neuromuscular Reeducation Of Movement Completed 05/06/2023 19123 Therapeutic Activities Direc t, Each 15 Minutes Completed 05/02/2023 15488 Therapeutic Activities Direc t, Each 15 Minutes Completed 05/02/2023 85471 Manual Help Desk Intern 1/> Area 15 Min Each Region Completed 05/02/2023 33981 Therapy Proc, Neuromuscular Reeducation Of Movement Completed 05/02/2023 36881 Therapy Proc 1/> Area 15Min Ea Completed 04/30/2023 31795 Hot/Cold Pack Completed 04/30/2023 28663 Therapy Proc 1/> Area 15Min Ea Completed 04/30/2023 75759 Manual Help Desk Intern 1/> Area 15 Min Each Region Completed 04/30/2023 73941 Therapy Proc, Neuromuscular Reeducation Of Movement Completed 04/24/2023 77162 Manual Help Desk Intern 1/> Area 15 Min Each Region Completed 04/24/2023 48465 Therapy Proc, Neuromuscular Reeducation Of Movement Completed 04/24/2023 79488 Therapy Proc 1/> Area 15Min Ea Completed 04/22/2023 10695 Manual Help Desk Intern 1/> Area 15 Min Each Region Completed 04/22/2023 56199 Therapy Proc, Neuromuscular Reeducation Of Movement Completed 04/22/2023 71473 Therapy Proc 1/> Area 15Min Ea Completed 04/22/2023 78331 Hot/Cold Pack Completed 04/19/2023 88140 Manual Help Desk Intern 1/> Area 15 Min Each Region Completed 04/19/2023 08807 Therapy Proc, Neuromuscular Reeducation Of Movement Completed 04/19/2023 75860 Therapy Proc 1/> Area 15Min Ea Completed 04/19/2023 79875 Hot/Cold Pack Completed 04/18/2023 21452 Manual Help Desk Intern 1/> Area 15 Min Each Region Completed 04/18/2023 66383 Therapy Proc, Neuromuscular Reeducation Of Movement Completed 04/18/2023 70351 Therapy Proc 1/> Area 15Min Ea Completed 04/15/2023 24524 Hot/Cold Pack Completed 04/15/2023 64331 Therapy Proc 1/> Area 15Min Ea Completed 04/15/2023 13062 Manual Help Desk Intern 1/> Area 15 Min Each Region Completed 04/15/2023 29099 Therapy Proc, Neuromuscular Reeducation Of Movement Completed 04/12/2023 32980 Manual Help Desk Intern 1/> Area 15 Min Each Region Completed 04/12/2023 08787 Therapy Proc, Neuromuscular Reeducation Of Movement Completed 04/12/2023 24493 Therapy Proc 1/> Area 15Min Ea Completed 04/12/2023 28888 Hot/Cold Pack Completed 04/10/2023 19648 Manual Help Desk Intern 1/> Area 15 Min Each Region Completed 04/10/2023 87734 Therapy Proc, Neuromuscular Reeducation Of Movement Completed 04/10/2023 40693 Therapy Proc 1/> Area 15Min Ea Completed 04/08/2023 97251 Manual Help Desk Intern 1/> Area 15 Min Each Region Completed 04/08/2023 91775 Therapy Proc 1/> Area 15Min Ea Completed 04/08/2023 89975 Therapy Proc, Neuromuscular Reeducation Of Movement Completed 04/05/2023 26175 Manual Help Desk Intern 1/> Area 15 Min Each Region Completed 04/05/2023 71253 Therapy Proc, Neuromuscular Reeducation Of Movement Completed 04/05/2023 19432 Therapy Proc 1/> Area 15Min Ea Completed 04/03/2023 09453 Manual Help Desk Intern /> Area 15 Min Each Region Completed 04/03/2023 25700 Therapy Proc, Neuromuscular Reeducation Of Movement Completed 04/03/2023 41806 Therapy Proc /> Area 15Min Ea Completed Medical Devices Description No Information Available Encounters Type Date Location Provider Dx Diagnosis Office Visit 10/02/2023 3:[facility]p [facility] R60.0 Localized edema Office Visit 09/06/2023 10:30a [facility] Dawson Almodovar, DO I10 Essential (pr imary) hypertension 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 F41.1 Generalized anxiety disorder R60.0 Localized edema Assessments Date Code Description Provider 10/02/2023 R60.0 Localized edema Berta THADDEUS Ayala 09/27/2023 R26.2 Difficulty in wa lking, not [...] Almodovar, DO 09/06/2023 R60.0 Localized edema Dawson hidalgo, DO 09/05/2023 R60.0 Localized edema Dawson Marino Jose or, DO 09/05/2023 R60.0 Localized edema [facility] [place] 09/05/2023 I10 Essential (primary) hyperten vickie Dawson Marino Nishi, DO 09/05/2023 I10 Essential (primary) hypertdania [facility] 09/02/2023 R26.2 Difficulty in wa lking, not elsewhere classified Aki Garcia, DPT 09/02/2023 M25.511 Pain in right shoulder Oziel Garcia, DPT 08/30/2023 R26.2 Difficulty in wa [...] 08/05/2023 M25.511 Pain in right shoulder Oziel luna Garcia, DPT 08/02/2023 R26.2 Difficulty in wa [...] DPT 05/15/2023 M25.511 Pain in right shoulder Ozeil Garcia, DPT 2023 R26.2 Difficulty in wa [...] Difficulty in wa lking, not elsewhere classified Nondenominational Smith, DPT 04/08/2023 M25.511 Pain in right shoulder Oziel Garcia, DPT 04/05/2023 R26.2 Difficulty in wa lking, not elsewhere classified Nondenominational Garcia, DPT 04/05/2023 M25.511 Pain in right shoulder Oziel Garcia, DPT 04/03/2023 R26.2 Difficulty in wa lking, not elsewhere classified Nondenominational Smith, DPT 04/03/2023 M25.511 Pain in right shoulder Oziel Garcia, DPT Plan of Treatment Future Appointment(s):* 10/08/2023 3:00 pm - [facility]US Ledbetter at [facility] * 03/13/2024 10:30 am - Dawson Almodovar DO at [facility] * 03/06/2024 9:00 am - [facility] - [facility] 10/02/2023 - THADDEUS Ledbetter* R60.0 Localized edema* New Medication:* Torsemide 20 mg - 1 tablet by mouth once daily for swelling * Comments:* - stat labs as below - reduce sodium intake, eliminate Liquid IV as this likely has sodium
- change furosemide to torsemide - followup 1 week or sooner if needed. Patient verbalizes understanding of care plan / instructions. * All* Follow up:* early next week Functional Status Description No Information Available Mental Status Description No Information Available Referrals Description No Information Available
--- OUTSIDE RECORDS SUMMARY | 2023-10-11 13:12 | External Medical Summary ---
Author Name Unknown Address Unknown Organization K1C:[facility] [address] [place] [id number] Laboratory Report Ordering Provider Test Date Status XUAN QUEENFLORIN 10/02/2023 16:04 Final Observation Date Value Abnormality Reference (Units ) Status Natriuretic peptide B [Mass/volume] in Serum or Plasma 10/03/2023 09:41 140.0 Above high normal 0.0-100.0 (pg/ml) Final Performing Location [facility] [address] [place] [id number]
--- OUTSIDE RECORDS SUMMARY | 2023-10-11 13:12 | External Medical Summary ---
Author Name Unknown Address Unknown Organization K1C:[facility] [address] [place] [id number] Laboratory Report Ordering Provider Test Date Status SHAYY QUEEN 10/08/2023 16:00 Final Observation Date Value Abnormality Reference (Units ) Status Glucose 10/09/2023 09:29 103 70-110 (MG/DL ) Final STAT RESULTS CALLED AND FAXE D TO MEGHA@10/09/23 OLIVIA BUN 10/09/2023 09:29 49 Above high normal 6-25 (MG/DL) Final Creatinine 10/09/2023 09:29 1.6 Above high normal 0.5- 1.2 (MG/DL) Final Sodium 10/09/2023 09:29 135 135-145 (MEQ/ L) Final Potassium 10/09/2023 09:29 4.4 3.5-5.0 (MEQ/ L) Final Cl 10/09/2023 09:29 99 95-107 (MEQ/L ) Final CO2 10/09/2023 09:29 29 24-31 (MEQ/L) Final Calcium 10/09/2023 09:29 8.3 Below low normal 8.5-10 .6 (MG/DL) Final GFR (estimated) 10/09/2023 09:29 32 Below low normal >60 (ML/MIN/1.73 SQM) Final Performing Location [facility] [address] [place] [id number]
--- OUTSIDE RECORDS SUMMARY | 2023-10-11 13:12 | External Medical Summary ---
Author Name Unknown Address Unknown Organization K1C:[facility] [address] [place] [id number] Laboratory Report Ordering Provider Test Date Status SHAYY QUEEN 10/02/2023 16:04 Final Observation Date Value Abnormality Reference (Units ) Status Glucose 10/03/2023 09:18 119 Above high normal 70-11 0 (MG/DL) Final STAT RESULTS CALLED AND FAXE D TO GALILEO Berman AT 9:48 ON 10/03/23 WK BUN 10/03/2023 09:18 45 Above high normal 6-25 (MG/DL) Final Creatinine 10/03/2023 09:18 1.2 0.5-1.2 (MG/ DL) Final Sodium 10/03/2023 09:18 136 135-145 (MEQ/ L) Final Potassium 10/03/2023 09:18 4.7 3.5-5.0 (MEQ/ L) Final Cl 10/03/2023 09:18 102 95-107 (MEQ/L ) Final CO2 10/03/2023 09:18 28 24-31 (MEQ/L) Final Calcium 10/03/2023 09:18 8.6 8.5-10.6 (MG/ DL) Final GFR (estimated) 10/03/2023 09:18 45 Below low normal >60 (ML/MIN/1.73 SQM) Final Performing Location [facility] [address] [place] [id number]
--- OUTSIDE RECORDS SUMMARY | 2023-10-11 13:12 | External Medical Summary ---
Continuity of Care Document (CCD) Created on: October 02, 2023 Catrina Alvarez External Reference #: [id number] : [id number] Sex: Female Author Name Unknown Organization [facility] Address [address] [place] [address] Phone [phone] Problems Active Problems Provider Date Essential hypertension [...] SIG Qnty Indications Order ing Provider Date [id number] Tablets 2 tablets by mouth every day 30tabs R60.0 Dawson Almodovar DO 10/05/2022 Multi + [place]-3 Adult GummiesChewtabs 1 by mouth every day Dawson Almodovar DO 08/08/2022 Vitamin B ComplexTablets 1 by mouth every day Dawson Almodovar DO 08/08/2022 Losartan Potassium/Hydrochlorothi [id number] Tablets 1 by mouth every day 90tabs I10 Dawson Almodovar DO 03/21/2020 Juice Plus Fibre` Dawson Almodovar DO 02/19/2018 Aspirin Adult Low Pxuq78wm Tablets DR 1 by mouth every day Unknown Citalopram Razbdnvxqijc80ep Tablets 1 by mouth every day 90tabs F41.1 Dawson Almodovar, DO Vitamin D3 Maximum [id number] (5000 Ut) Capsules 1 by mouth once daily Unknown Immunizations CPT Code Status Date Vaccine Lot # [id number] Given 07/14/2009 Pneumococcal Vaccine/Pneu movax 23 [id number] Refused 09/06/2023 Sarscov2 Vaccin e 50 mcg/0.5 ML For Im Use 12 Yrs And Older 19972 Refused 09/06/2023 Pneumococcal Conjugate-Pr evnar 20 11752 Refused 10/19/2022 Shingrix 28923 Refused 08/08/2022 Pneumococcal Conjugate-Pr evnar 20 01674 Refused 08/08/2022 Influenza Vac, Split, Preservative Free High Dose Age 65 & > 04164 Refused 04/20/2022 Moderna Sars-Co v-2 (Cov-19) vacc,100 mcg/ 0.5 mL 12Y+EMR Doc Only [id number] Refused 10/16/2021 Influenza Virus Vaccine, Quadrivalent (Cciiv4), Derived From Cell 69662 Refused 10/16/2021 Shingrix 70441 Refused 10/16/2021 Pneumococcal Conjugate-Pr evnar 13 29429 Refused 03/20/2021 Pfizer Sars-Cov -2 (Cov-19) vacc 30mcg/0.3ML 12Y+ EMR Doc Only [id number] Refused 04/17/2019 Influenza Vacci ne, Inactivated, Subunit, Adjuvanted, For Intrmus 97263 Refused 01/29/2019 Tdap (Tetanus, diphtheria & acel. pertussis) Adacel or Boostrix 17403 Refused 01/29/2019 Pneumococcal Conjugate-Pr evnar 13 Vital Signs Date Vital Result Comment 09/06/2023 10:35am BP Systolic 130 mmHg BP Diastolic 78 mmHg Body Temperature 98.2 F Heart Rate 76 /min Respiratory Rate 16 /min Weight 205.31 lb Weight 93.130 kg Height 62 inches 5'2" BMI (Body Mass Index) 37.5 kg/m2 [place] Body Weight 110 lb 02/22/2023 10:40am BP Systolic 138 mmHg BP Diastolic 82 mmHg Body Temperature 98.2 F Heart Rate 84 /min Respiratory Rate 16 /min Weight 196.12 lb Weight 88.962 kg Results Test Acquired Date Facility Test Result H/L Range N ote BMP 09/05/2023 [facility]. [address], [place] [id number] [phone] Glucose 88 mg/dL 70-110 BUN 23 mg/dL 6-25 Creatinine 0.8 mg/dL 0.5-1.2 Sodium 138 mEq/L 135-145 Potassium 4.1 mEq/L 3.5-5.0 Chloride 100 mEq/L 95-107 Co-2 29 mEq/L 24-31 Calcium 9.4 mg/dL 8.5-10.6 GFR 72 ML/MIN/1.73SQM >60 Procedures Date Code Description Status 09/24/2023 16514 Manual Burn Crew Member 1/> Area 15 Min Each Region Completed 09/24/2023 88855 Therapy Proc, Neuromuscular Reeducation Of Movement Completed 09/24/2023 78006 Therapy Proc 1/> Area 15Min Ea Completed 09/24/2023 02311 Hot/Cold Pack Completed 09/24/2023 68181 Therapeutic Activities Direc t, Each 15 Minutes Completed 09/20/2023 50394 Hot/Cold Pack Completed 09/20/2023 18284 Therapy Proc 1/> Area 15Min Ea Completed 09/20/2023 98331 Therapy Proc, Neuromuscular Reeducation Of Movement Completed 09/20/2023 63370 Manual Burn Crew Member 1/> Area 15 Min Each Region Completed 09/20/2023 13473 Therapeutic Activities Direc t, Each 15 Minutes Completed 09/16/2023 38176 Therapeutic Activities Direc t, Each 15 Minutes Completed 09/16/2023 42162 Manual Burn Crew Member 1/> Area 15 Min Each Region Completed 09/16/2023 24129 Therapy Proc, Neuromuscular Reeducation Of Movement Completed 09/16/2023 85777 Therapy Proc 1/> Area 15Min Ea Completed 09/16/2023 86658 Hot/Cold Pack Completed 09/09/2023 17465 Therapy Proc, Neuromuscular Reeducation Of Movement Completed 09/09/2023 76398 Hot/Cold Pack Completed 09/09/2023 38208 Therapy Proc 1/> Area 15Min Ea Completed 09/09/2023 38982 Manual Burn Crew Member 1/> Area 15 Min Each Region Completed 09/09/2023 37137 Therapeutic Activities Direc t, Each 15 Minutes Completed 09/06/2023 1101F PT SCR Future Fall Risk, No Fall Or 1 W/Out Injury Completed 09/05/2023 53519 Venipuncture Routine Complet ed 09/02/2023 53937 Hot/Cold Pack Completed 09/02/2023 61486 Therapy Proc 1/> Area 15Min Ea Completed 09/02/2023 90265 Therapy Proc, Neuromuscular Reeducation Of Movement Completed 09/02/2023 15752 Manual Burn Crew Member 1/> Area 15 Min Each Region Completed 09/02/2023 14253 Therapeutic Activities Direc t, Each 15 Minutes Completed 08/30/2023 15649 Therapeutic Activities Direc t, Each 15 Minutes Completed 08/30/2023 92623 Manual Burn Crew Member 1/> Area 15 Min Each Region Completed 08/30/2023 89635 Therapy Proc, Neuromuscular Reeducation Of Movement Completed 08/30/2023 26019 Therapy Proc 1/> Area 15Min Ea Completed 08/30/2023 29437 Hot/Cold Pack Completed 08/27/2023 96372 Therapy Proc, Neuromuscular Reeducation Of Movement Completed 08/27/2023 37521 Hot/Cold Pack Completed 08/27/2023 16662 Therapy Proc 1/> Area 15Min Ea Completed 08/27/2023 67373 Manual Burn Crew Member 1/> Area 15 Min Each Region Completed 08/27/2023 08623 Therapeutic Activities Direc t, Each 15 Minutes Completed 08/23/2023 48080 Therapeutic Activities Direc t, Each 15 Minutes Completed 08/23/2023 52924 Manual Burn Crew Member 1/> Area 15 Min Each Region Completed 08/23/2023 61030 Therapy Proc, Neuromuscular Reeducation Of Movement Completed 08/23/2023 31252 Therapy Proc 1/> Area 15Min Ea Completed 08/23/2023 41565 Hot/Cold Pack Completed 08/20/2023 91179 Therapy Proc 1/> Area 15Min Ea Completed 08/20/2023 30659 Hot/Cold Pack Completed 08/20/2023 53089 Therapy Proc, Neuromuscular Reeducation Of Movement Completed 08/20/2023 42461 Manual Burn Crew Member 1/> Area 15 Min Each Region Completed 08/20/2023 83609 Therapeutic Activities Direc t, Each 15 Minutes Completed 08/16/2023 16590 Therapeutic Activities Direc t, Each 15 Minutes Completed 08/16/2023 46163 Manual Burn Crew Member 1/> Area 15 Min Each Region Completed 08/16/2023 35804 Therapy Proc, Neuromuscular Reeducation Of Movement Completed 08/16/2023 67604 Therapy Proc 1/> Area 15Min Ea Completed 08/16/2023 24574 Hot/Cold Pack Completed 08/12/2023 84203 Therapeutic Activities Direc t, Each 15 Minutes Completed 08/12/2023 39356 Hot/Cold Pack Completed 08/12/2023 38614 Therapy Proc 1/> Area 15Min Ea Completed 08/12/2023 95592 Therapy Proc, Neuromuscular Reeducation Of Movement Completed 08/12/2023 97241 Manual Burn Crew Member 1/> Area 15 Min Each Region Completed 08/09/2023 19752 Therapeutic Activities Direc t, Each 15 Minutes Completed 08/09/2023 26765 Manual Burn Crew Member 1/> Area 15 Min Each Region Completed 08/09/2023 34695 Therapy Proc, Neuromuscular Reeducation Of Movement Completed 08/09/2023 29345 Therapy Proc 1/> Area 15Min Ea Completed 08/09/2023 27841 Hot/Cold Pack Completed 08/05/2023 23870 Therapeutic Activities Direc t, Each 15 Minutes Completed 08/05/2023 62565 Manual Burn Crew Member 1/> Area 15 Min Each Region Completed 08/05/2023 10893 Therapy Proc, Neuromuscular Reeducation Of Movement Completed 08/05/2023 41589 Hot/Cold Pack Completed 08/02/2023 14125 Therapy Proc, Neuromuscular Reeducation Of Movement Completed 08/02/2023 63794 Hot/Cold Pack Completed 08/02/2023 83711 Therapy Proc 1/> Area 15Min Ea Completed 08/02/2023 70088 Manual Burn Crew Member 1/> Area 15 Min Each Region Completed 08/02/2023 70724 Therapeutic Activities Direc t, Each 15 Minutes Completed 07/29/2023 31882 Therapeutic Activities Direc t, Each 15 Minutes Completed 07/29/2023 28667 Manual Burn Crew Member 1/> Area 15 Min Each Region Completed 07/29/2023 33927 Therapy Proc, Neuromuscular Reeducation Of Movement Completed 07/29/2023 35433 Therapy Proc 1/> Area 15Min Ea Completed 07/29/2023 20196 Hot/Cold Pack Completed 07/22/2023 50239 Therapeutic Activities Direc t, Each 15 Minutes Completed 07/22/2023 27494 Manual Burn Crew Member 1/> Area 15 Min Each Region Completed 07/22/2023 97823 Therapy Proc, Neuromuscular Reeducation Of Movement Completed 07/22/2023 52013 Therapy Proc 1/> Area 15Min Ea Completed 07/22/2023 35708 Hot/Cold Pack Completed 07/19/2023 68811 Hot/Cold Pack Completed 07/19/2023 59806 Therapy Proc 1/> Area 15Min Ea Completed 07/19/2023 32660 Manual Burn Crew Member 1/> Area 15 Min Each Region Completed 07/19/2023 27593 Therapeutic Activities Direc t, Each 15 Minutes Completed 07/19/2023 89849 Therapy Proc, Neuromuscular Reeducation Of Movement Completed 07/15/2023 18092 Therapeutic Activities Direc t, Each 15 Minutes Completed 07/15/2023 22215 Manual Burn Crew Member 1/> Area 15 Min Each Region Completed 07/15/2023 67317 Therapy Proc, Neuromuscular Reeducation Of Movement Completed 07/15/2023 25008 Hot/Cold Pack Completed 07/12/2023 65992 Therapy Proc, Neuromuscular Reeducation Of Movement Completed 07/12/2023 95738 Hot/Cold Pack Completed 07/12/2023 69918 Therapy Proc 1/> Area 15Min Ea Completed 07/12/2023 76909 Manual Burn Crew Member 1/> Area 15 Min Each Region Completed 07/12/2023 19995 Therapeutic Activities Direc t, Each 15 Minutes Completed 07/10/2023 65957 Therapeutic Activities Direc t, Each 15 Minutes Completed 07/10/2023 49520 Manual Burn Crew Member 1/> Area 15 Min Each Region Completed 07/10/2023 51551 Therapy Proc, Neuromuscular Reeducation Of Movement Completed 07/10/2023 62471 Therapy Proc 1/> Area 15Min Ea Completed 07/10/2023 07627 Hot/Cold Pack Completed 07/08/2023 67926 Therapy Proc 1/> Area 15Min Ea Completed 07/08/2023 42926 Hot/Cold Pack Completed 07/08/2023 42952 Therapy Proc, Neuromuscular Reeducation Of Movement Completed 07/08/2023 27108 Therapeutic Activities Direc t, Each 15 Minutes Completed 07/08/2023 84854 Manual Burn Crew Member 1/> Area 15 Min Each Region Completed 07/05/2023 65942 Therapeutic Activities Direc t, Each 15 Minutes Completed 07/05/2023 31689 Manual Burn Crew Member 1/> Area 15 Min Each Region Completed 07/05/2023 44622 Therapy Proc, Neuromuscular Reeducation Of Movement Completed 07/05/2023 27640 Therapy Proc 1/> Area 15Min Ea Completed 07/05/2023 58090 Hot/Cold Pack Completed 07/03/2023 07392 Therapeutic Activities Direc t, Each 15 Minutes Completed 07/03/2023 18989 Manual Burn Crew Member 1/> Area 15 Min Each Region Completed 07/03/2023 10112 Therapy Proc, Neuromuscular Reeducation Of Movement Completed 07/03/2023 13803 Therapy Proc 1/> Area 15Min Ea Completed 07/03/2023 47087 Hot/Cold Pack Completed 07/01/2023 36085 Hot/Cold Pack Completed 07/01/2023 18175 Therapy Proc 1/> Area 15Min Ea Completed 07/01/2023 88330 Manual Burn Crew Member 1/> Area 15 Min Each Region Completed 07/01/2023 08907 Therapeutic Activities Direc t, Each 15 Minutes Completed 07/01/2023 42827 Therapy Proc, Neuromuscular Reeducation Of Movement Completed 06/28/2023 68677 Therapeutic Activities Direc t, Each 15 Minutes Completed 06/28/2023 67711 Manual Burn Crew Member 1/> Area 15 Min Each Region Completed 06/28/2023 30467 Therapy Proc, Neuromuscular Reeducation Of Movement Completed 06/28/2023 71668 Therapy Proc 1/> Area 15Min Ea Completed 06/24/2023 54969 Therapy Proc, Neuromuscular Reeducation Of Movement Completed 06/24/2023 08275 Hot/Cold Pack Completed 06/24/2023 35948 Therapy Proc 1/> Area 15Min Ea Completed 06/24/2023 72066 Manual Burn Crew Member 1/> Area 15 Min Each Region Completed 06/24/2023 77678 Therapeutic Activities Direc t, Each 15 Minutes Completed 06/21/2023 17852 Therapeutic Activities Direc t, Each 15 Minutes Completed 06/21/2023 32207 Manual Burn Crew Member 1/> Area 15 Min Each Region Completed 06/21/2023 60201 Therapy Proc, Neuromuscular Reeducation Of Movement Completed 06/21/2023 25951 Therapy Proc 1/> Area 15Min Ea Completed 06/21/2023 49816 Hot/Cold Pack Completed 06/19/2023 35424 Therapy Proc 1/> Area 15Min Ea Completed 06/19/2023 73537 Hot/Cold Pack Completed 06/19/2023 61393 Therapeutic Activities Direc t, Each 15 Minutes Completed 06/19/2023 65884 Manual Burn Crew Member 1/> Area 15 Min Each Region Completed 06/19/2023 29474 Therapy Proc, Neuromuscular Reeducation Of Movement Completed 06/17/2023 19336 Therapeutic Activities Direc t, Each 15 Minutes Completed 06/17/2023 44412 Manual Burn Crew Member 1/> Area 15 Min Each Region Completed 06/17/2023 92095 Therapy Proc, Neuromuscular Reeducation Of Movement Completed 06/17/2023 99887 Therapy Proc 1/> Area 15Min Ea Completed 06/17/2023 51501 Hot/Cold Pack Completed 06/14/2023 85247 Therapeutic Activities Direc t, Each 15 Minutes Completed 06/14/2023 11773 Manual Burn Crew Member 1/> Area 15 Min Each Region Completed 06/14/2023 45767 Therapy Proc, Neuromuscular Reeducation Of Movement Completed 06/14/2023 36627 Therapy Proc 1/> Area 15Min Ea Completed 06/14/2023 21345 Hot/Cold Pack Completed 06/12/2023 94210 Hot/Cold Pack Completed 06/12/2023 67869 Therapy Proc 1/> Area 15Min Ea Completed 06/12/2023 23042 Manual Burn Crew Member 1/> Area 15 Min Each Region Completed 06/12/2023 31852 Therapeutic Activities Direc t, Each 15 Minutes Completed 06/12/2023 85771 Therapy Proc, Neuromuscular Reeducation Of Movement Completed 06/07/2023 23347 Therapeutic Activities Direc t, Each 15 Minutes Completed 06/07/2023 70047 Manual Burn Crew Member 1/> Area 15 Min Each Region Completed 06/07/2023 08083 Therapy Proc, Neuromuscular Reeducation Of Movement Completed 06/07/2023 11867 Therapy Proc 1/> Area 15Min Ea Completed 06/05/2023 85790 Therapy Proc, Neuromuscular Reeducation Of Movement Completed 06/05/2023 71034 Hot/Cold Pack Completed 06/05/2023 24340 Therapy Proc 1/> Area 15Min Ea Completed 06/05/2023 68118 Manual Burn Crew Member 1/> Area 15 Min Each Region Completed 06/05/2023 34710 Therapeutic Activities Direc t, Each 15 Minutes Completed 06/03/2023 82201 Therapeutic Activities Direc t, Each 15 Minutes Completed 06/03/2023 06261 Manual Burn Crew Member 1/> Area 15 Min Each Region Completed 06/03/2023 52378 Therapy Proc, Neuromuscular Reeducation Of Movement Completed 06/03/2023 03410 Therapy Proc 1/> Area 15Min Ea Completed 06/03/2023 00911 Hot/Cold Pack Completed 05/31/2023 05129 Hot/Cold Pack Completed 05/31/2023 41431 Therapy Proc, Neuromuscular Reeducation Of Movement Completed 05/31/2023 18845 Manual Burn Crew Member 1/> Area 15 Min Each Region Completed 05/31/2023 96204 Therapeutic Activities Direc t, Each 15 Minutes Completed 05/29/2023 16687 Therapeutic Procedure Group Completed 05/29/2023 70168 Manual Burn Crew Member 1/> Area 15 Min Each Region Completed 05/29/2023 66488 Therapy Proc, Neuromuscular Reeducation Of Movement Completed 05/29/2023 22854 Hot/Cold Pack Completed 05/29/2023 25551 Therapeutic Activities Direc t, Each 15 Minutes Completed 05/27/2023 62943 Hot/Cold Pack Completed 05/27/2023 18794 Therapy Proc, Neuromuscular Reeducation Of Movement Completed 05/27/2023 38895 Manual Burn Crew Member 1/> Area 15 Min Each Region Completed 05/27/2023 78572 Therapeutic Procedure Group Completed 05/27/2023 44708 Therapeutic Activities Direc t, Each 15 Minutes Completed 05/24/2023 19072 Therapeutic Activities Direc t, Each 15 Minutes Completed 05/24/2023 25161 Manual Burn Crew Member 1/> Area 15 Min Each Region Completed 05/24/2023 59520 Therapy Proc, Neuromuscular Reeducation Of Movement Completed 05/24/2023 25941 Therapy Proc 1/> Area 15Min Ea Completed 05/24/2023 65593 Hot/Cold Pack Completed 05/22/2023 81257 Therapeutic Activities Direc t, Each 15 Minutes Completed 05/22/2023 19953 Hot/Cold Pack Completed 05/22/2023 68913 Therapy Proc 1/> Area 15Min Ea Completed 05/22/2023 33230 Therapy Proc, Neuromuscular Reeducation Of Movement Completed 05/22/2023 41342 Manual Burn Crew Member 1/> Area 15 Min Each Region Completed 05/20/2023 06520 Therapeutic Activities Direc t, Each 15 Minutes Completed 05/20/2023 02756 Manual Burn Crew Member 1/> Area 15 Min Each Region Completed 05/20/2023 05550 Therapy Proc, Neuromuscular Reeducation Of Movement Completed 05/20/2023 69070 Therapy Proc 1/> Area 15Min Ea Completed 05/20/2023 52488 Hot/Cold Pack Completed 05/17/2023 97187 Therapeutic Activities Direc t, Each 15 Minutes Completed 05/17/2023 98974 Manual Burn Crew Member 1/> Area 15 Min Each Region Completed 05/17/2023 03847 Therapy Proc, Neuromuscular Reeducation Of Movement Completed 05/17/2023 75922 Therapy Proc 1/> Area 15Min Ea Completed 05/17/2023 02687 Hot/Cold Pack Completed 05/15/2023 86450 Therapy Proc 1/> Area 15Min Ea Completed 05/15/2023 82564 Hot/Cold Pack Completed 05/15/2023 30853 Manual Burn Crew Member 1/> Area 15 Min Each Region Completed 05/15/2023 90617 Therapeutic Activities Direc t, Each 15 Minutes Completed 05/15/2023 10177 Therapy Proc, Neuromuscular Reeducation Of Movement Completed 2023 01036 Manual Burn Crew Member 1/> Area 15 Min Each Region Completed 2023 37215 Therapy Proc, Neuromuscular Reeducation Of Movement Completed 2023 75214 Therapy Proc 1/> Area 15Min Ea Completed 2023 97243 Hot/Cold Pack Completed 2023 52918 Therapeutic Activities Direc t, Each 15 Minutes Completed 05/10/2023 07077 Therapeutic Activities Direc t, Each 15 Minutes Completed 05/10/2023 37234 Manual Burn Crew Member 1/> Area 15 Min Each Region Completed 05/10/2023 91211 Therapy Proc, Neuromuscular Reeducation Of Movement Completed 05/10/2023 21021 Therapy Proc 1/> Area 15Min Ea Completed 05/10/2023 48493 Hot/Cold Pack Completed 05/08/2023 67318 Hot/Cold Pack Completed 05/08/2023 64669 Therapy Proc 1/> Area 15Min Ea Completed 05/08/2023 96470 Manual Burn Crew Member 1/> Area 15 Min Each Region Completed 05/08/2023 38115 Therapeutic Activities Direc t, Each 15 Minutes Completed 05/08/2023 43046 Therapy Proc, Neuromuscular Reeducation Of Movement Completed 05/06/2023 36489 Therapeutic Activities Direc t, Each 15 Minutes Completed 05/06/2023 41519 Manual Burn Crew Member 1/> Area 15 Min Each Region Completed 05/06/2023 22939 Therapy Proc, Neuromuscular Reeducation Of Movement Completed 05/06/2023 95697 Therapy Proc 1/> Area 15Min Ea Completed 05/06/2023 23743 Hot/Cold Pack Completed 05/02/2023 83839 Therapeutic Activities Direc t, Each 15 Minutes Completed 05/02/2023 85011 Therapy Proc 1/> Area 15Min Ea Completed 05/02/2023 88222 Therapy Proc, Neuromuscular Reeducation Of Movement Completed 05/02/2023 55748 Manual Burn Crew Member 1/> Area 15 Min Each Region Completed 04/30/2023 75686 Manual Burn Crew Member 1/> Area 15 Min Each Region Completed 04/30/2023 90105 Therapy Proc, Neuromuscular Reeducation Of Movement Completed 04/30/2023 80523 Therapy Proc 1/> Area 15Min Ea Completed 04/30/2023 13495 Hot/Cold Pack Completed 04/24/2023 76378 Therapy Proc 1/> Area 15Min Ea Completed 04/24/2023 51700 Manual Burn Crew Member 1/> Area 15 Min Each Region Completed 04/24/2023 32382 Therapy Proc, Neuromuscular Reeducation Of Movement Completed 04/22/2023 98215 Manual Burn Crew Member 1/> Area 15 Min Each Region Completed 04/22/2023 25379 Therapy Proc, Neuromuscular Reeducation Of Movement Completed 04/22/2023 67312 Therapy Proc 1/> Area 15Min Ea Completed 04/22/2023 16338 Hot/Cold Pack Completed 04/19/2023 62286 Manual Burn Crew Member 1/> Area 15 Min Each Region Completed 04/19/2023 06720 Therapy Proc, Neuromuscular Reeducation Of Movement Completed 04/19/2023 88085 Therapy Proc 1/> Area 15Min Ea Completed 04/19/2023 43070 Hot/Cold Pack Completed 04/18/2023 34963 Manual Burn Crew Member 1/> Area 15 Min Each Region Completed 04/18/2023 51990 Therapy Proc, Neuromuscular Reeducation Of Movement Completed 04/18/2023 77787 Therapy Proc 1/> Area 15Min Ea Completed 04/15/2023 14468 Hot/Cold Pack Completed 04/15/2023 01411 Therapy Proc 1/> Area 15Min Ea Completed 04/15/2023 65323 Manual Burn Crew Member 1/> Area 15 Min Each Region Completed 04/15/2023 23836 Therapy Proc, Neuromuscular Reeducation Of Movement Completed 04/12/2023 56603 Manual Burn Crew Member 1/> Area 15 Min Each Region Completed 04/12/2023 85916 Therapy Proc, Neuromuscular Reeducation Of Movement Completed 04/12/2023 79830 Therapy Proc 1/> Area 15Min Ea Completed 04/12/2023 08263 Hot/Cold Pack Completed 04/10/2023 49836 Manual Burn Crew Member 1/> Area 15 Min Each Region Completed 04/10/2023 05934 Therapy Proc, Neuromuscular Reeducation Of Movement Completed 04/10/2023 38449 Therapy Proc 1/> Area 15Min Ea Completed 04/08/2023 31090 Manual Burn Crew Member 1/> Area 15 Min Each Region Completed 04/08/2023 27359 Therapy Proc 1/> Area 15Min Ea Completed 04/08/2023 48846 Therapy Proc, Neuromuscular Reeducation Of Movement Completed 04/05/2023 73413 Manual Burn Crew Member 1/> Area 15 Min Each Region Completed 04/05/2023 75120 Therapy Proc, Neuromuscular Reeducation Of Movement Completed 04/05/2023 89916 Therapy Proc 1/> Area 15Min Ea Completed 04/03/2023 83371 Manual Burn Crew Member 1/> Area 15 Min Each Region Completed 04/03/2023 08654 Therapy Proc, Neuromuscular Reeducation Of Movement Completed 04/03/2023 21198 Therapy Proc 1/> Area 15Min Ea Completed Medical Devices Description No Information Available Encounters Type Date Location Provider Dx Diagnosis Office Visit 09/06/2023 10:[place]a [place] Almod[place], DO I10 Essential (pr imary) hypertension 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 F41.1 Generalized anxiety disorder R60.0 Localized edema Assessments Date Code Description Provider 09/24/2023 R26.2 Difficulty in wa lking, not [...] I10 Essential (primary) hyperten [facility] [place] 09/02/2023 R26.2 Difficulty in wa lking, not elsewhere classified Aki Garcia, DPT 09/02/2023 M25.511 Pain in right shoulder Oziel luna Jose, DPT 08/30/2023 R26.2 Difficulty in wa lking, not elsewhere classified Aki Garcia, DPT 08/30/2023 M25.511 Pain in right shoulder Oziel luna Jose, DPT 08/27/2023 R26.2 Difficulty in wa lking, not elsewhere classified Aki Garcia, DPT 08/27/2023 M25.511 Pain in right shoulder Oziel luna Jose, DPT 08/23/2023 R26.2 Difficulty in wa lking, [...] 06/05/2023 M25.511 Pain in right shoulder Oziel Garcai, DPT 06/03/2023 R26.2 Difficulty in wa lking, not elsewhere classified Aki Garcia, DPT 06/03/2023 M25.511 Pain in right shoulder Oziel Garcia, DPT 05/31/2023 R26.2 Difficulty in wa lking, not elsewhere classified Aki Garcia, DPT 05/31/2023 M25.511 Pain in right shoulder Oziel Garcia, DPT 05/29/2023 R26.2 Difficulty in wa lking, not elsewhere classified Aki Garica, DPT 05/29/2023 M25.511 Pain in right shoulder Oziel Garcia, DPT 05/27/2023 R26.2 Difficulty in wa lking, not elsewhere classified Aki Garcia, DPT 05/27/2023 M25.511 Pain in right shoulder Oziel Garcia, DPT 05/24/2023 R26.2 Difficulty in wa lking, not elsewhere classified Aki Garcia, DPT 05/24/2023 M25.511 Pain in right shoulder Oziel Gacria, DPT 05/22/2023 R26.2 Difficulty in wa lking, [...] 10:30 am - Dawson Almodovar DO at [place] * 03/06/2024 9:00 am - [facility] [place] Functional Status Description No Information Available Mental Status Description No Information Available Referrals Description No Information Available
--- OUTSIDE RECORDS SUMMARY | 2023-10-11 13:12 | External Medical Summary | Continuity of Care Document ---
Author Name Unknown Organization [facility] Address [address], [place] [address] Phone [phone] Problems Active Problems Provider Date Essential hypertension [...] SIG Qnty Indications Order ing Provider Date [id number] Tablets 1 tablet by mouth once daily for swelling 30tabs R60.0 THADDEUS Ledbetter 10/02/2023 Multi + [place]-3 Adult GummiesChewtabs 1 by mouth every day Dawson Almodovar DO 08/08/2022 Vitamin B ComplexTablets 1 by mouth every day Dawson Almodovar DO 08/08/2022 Losartan Potassium/Hydrochloroth [id number] Tablets 1 by mouth every day 90tabs I10 Dawson Almodovar DO 03/21/2020 Juice Plus Fibre` Dawson Almodovar DO 02/19/2018 Aspirin Adult Low Lrvo64aw Tablets DR 1 by mouth every day Unknown Citalopram Xvlfrywddbnt90jc Tablets 1 by mouth every day 90tabs F41.1 Dawson CintiaAlvin Almodovar, DO Vitamin D3 Maximum [id number] (5000 Ut) Capsules 1 by mouth once daily Unknown Immunizations CPT Code Status Date Vaccine Lot # [id number] Given 07/14/2009 Pneumococcal Vaccine/Pneu movax 23 05901 Refused 09/06/2023 Sarscov2 Vaccin e 50 mcg/0.5 ML For Im Use 12 Yrs And Older 27678 Refused 09/06/2023 Pneumococcal Conjugate-Pr evnar 20 61494 Refused 10/19/2022 Shingrix 03033 Refused 08/08/2022 Pneumococcal Conjugate-Pr evnar 20 68971 Refused 08/08/2022 Influenza Vac, Split, Preservative Free High Dose Age 65 & > 26678 Refused 04/20/2022 Moderna Sars-Co v-2 (Cov-19) vacc,100 mcg/ 0.5 mL 12Y+EMR Doc Only 64766 Refused 10/16/2021 Influenza Virus Vaccine, Quadrivalent (Cciiv4), Derived From Cell 02869 Refused 10/16/2021 Shingrix 99321 Refused 10/16/2021 Pneumococcal Conjugate-Pr evnar 13 31313 Refused 03/20/2021 Pfizer Sars-Cov -2 (Cov-19) vacc 30mcg/0.3ML 12Y+ EMR Doc Only 83434 Refused 04/17/2019 Influenza Vacci ne, Inactivated, Subunit, Adjuvanted, For [facility] [address] Refused 01/29/2019 Tdap (Tetanus, diphtheria & acel. pertussis) Adacel or Boostrix 63553 Refused 01/29/2019 Pneumococcal Conjugate-Pr evnar 13 Vital [...] 5'2" BMI (Body Mass Index) 37.5 kg/m2 [place] Body Weight 110 lb Results Test Acquired Date Facility Test Result H/L Range N [place] Laboratory test finding 10/02/2023 [facility] [address] [place] [address] [phone] BNP <pending> BMP 09/05/2023 [facility] [address] [place] [address] [phone] Glucose 88 mg/dL 70-110 BUN 23 mg/dL 6-25 Creatinine 0.8 mg/dL 0.5-1.2 Sodium 138 mEq/L 135-145 Potassium 4.1 mEq/L 3.5-5.0 Chloride 100 mEq/L 95-107 Co-2 29 mEq/L 24-31 Calcium 9.4 mg/dL 8.5-10.6 GFR 72 ML/MIN/1.73SQM >60 Procedures Date Code Description Status 10/02/2023 95327 Venipuncture Routine Complet ed 09/27/2023 06322 Therapeutic Activities Direc t, Each 15 Minutes Completed 09/27/2023 97680 Hot/Cold Pack Completed 09/27/2023 11394 Therapy Proc 1/> Area 15Min Ea Completed 09/27/2023 43381 Manual Kennel Assistant 1/> Area 15 Min Each Region Completed 09/27/2023 16346 Therapy Proc, Neuromuscular Reeducation Of Movement Completed 09/24/2023 97640 Therapeutic Activities Direc t, Each 15 Minutes Completed 09/24/2023 71491 Manual Kennel Assistant 1/> Area 15 Min Each Region Completed 09/24/2023 39717 Therapy Proc, Neuromuscular Reeducation Of Movement Completed 09/24/2023 29682 Therapy Proc 1/> Area 15Min Ea Completed 09/24/2023 94440 Hot/Cold Pack Completed 09/20/2023 31645 Therapeutic Activities Direc t, Each 15 Minutes Completed 09/20/2023 31021 Manual Kennel Assistant 1/> Area 15 Min Each Region Completed 09/20/2023 66883 Therapy Proc, Neuromuscular Reeducation Of Movement Completed 09/20/2023 02396 Therapy Proc 1/> Area 15Min Ea Completed 09/20/2023 83088 Hot/Cold Pack Completed 09/16/2023 17465 Therapy Proc 1/> Area 15Min Ea Completed 09/16/2023 10092 Hot/Cold Pack Completed 09/16/2023 85966 Therapy Proc, Neuromuscular Reeducation Of Movement Completed 09/16/2023 91396 Manual Kennel Assistant 1/> Area 15 Min Each Region Completed 09/16/2023 06831 Therapeutic Activities Direc t, Each 15 Minutes Completed 09/09/2023 37750 Therapeutic Activities Direc t, Each 15 Minutes Completed 09/09/2023 61488 Manual Kennel Assistant 1/> Area 15 Min Each Region Completed 09/09/2023 56215 Therapy Proc, Neuromuscular Reeducation Of Movement Completed 09/09/2023 43350 Therapy Proc 1/> Area 15Min Ea Completed 09/09/2023 27973 Hot/Cold Pack Completed 09/06/2023 1101F PT SCR Future Fall Risk, No Fall Or 1 W/Out Injury Completed 09/05/2023 35108 Venipuncture Routine Complet ed 09/02/2023 79122 Therapeutic Activities Direc t, Each 15 Minutes Completed 09/02/2023 72480 Manual Kennel Assistant 1/> Area 15 Min Each Region Completed 09/02/2023 89565 Therapy Proc, Neuromuscular Reeducation Of Movement Completed 09/02/2023 21828 Therapy Proc 1/> Area 15Min Ea Completed 09/02/2023 42518 Hot/Cold Pack Completed 08/30/2023 32364 Therapy Proc 1/> Area 15Min Ea Completed 08/30/2023 79120 Hot/Cold Pack Completed 08/30/2023 52873 Manual Kennel Assistant 1/> Area 15 Min Each Region Completed 08/30/2023 86338 Therapeutic Activities Direc t, Each 15 Minutes Completed 08/30/2023 96478 Therapy Proc, Neuromuscular Reeducation Of Movement Completed 08/27/2023 88542 Therapeutic Activities Direc t, Each 15 Minutes Completed 08/27/2023 53699 Manual Kennel Assistant 1/> Area 15 Min Each Region Completed 08/27/2023 65503 Therapy Proc, Neuromuscular Reeducation Of Movement Completed 08/27/2023 26425 Therapy Proc 1/> Area 15Min Ea Completed 08/27/2023 83622 Hot/Cold Pack Completed 08/23/2023 62623 Therapeutic Activities Direc t, Each 15 Minutes Completed 08/23/2023 93616 Manual Kennel Assistant 1/> Area 15 Min Each Region Completed 08/23/2023 21459 Therapy Proc, Neuromuscular Reeducation Of Movement Completed 08/23/2023 96419 Therapy Proc 1/> Area 15Min Ea Completed 08/23/2023 50558 Hot/Cold Pack Completed 08/20/2023 71497 Hot/Cold Pack Completed 08/20/2023 81493 Therapy Proc 1/> Area 15Min Ea Completed 08/20/2023 99067 Manual Kennel Assistant 1/> Area 15 Min Each Region Completed 08/20/2023 83305 Therapeutic Activities Direc t, Each 15 Minutes Completed 08/20/2023 85896 Therapy Proc, Neuromuscular Reeducation Of Movement Completed 08/16/2023 44988 Therapeutic Activities Direc t, Each 15 Minutes Completed 08/16/2023 70890 Manual Kennel Assistant 1/> Area 15 Min Each Region Completed 08/16/2023 20940 Therapy Proc, Neuromuscular Reeducation Of Movement Completed 08/16/2023 27483 Therapy Proc 1/> Area 15Min Ea Completed 08/16/2023 84622 Hot/Cold Pack Completed 08/12/2023 79408 Therapy Proc, Neuromuscular Reeducation Of Movement Completed 08/12/2023 10191 Hot/Cold Pack Completed 08/12/2023 88060 Therapy Proc 1/> Area 15Min Ea Completed 08/12/2023 31700 Manual Kennel Assistant 1/> Area 15 Min Each Region Completed 08/12/2023 67189 Therapeutic Activities Direc t, Each 15 Minutes Completed 08/09/2023 84417 Therapeutic Activities Direc t, Each 15 Minutes Completed 08/09/2023 20412 Manual Kennel Assistant 1/> Area 15 Min Each Region Completed 08/09/2023 19402 Therapy Proc, Neuromuscular Reeducation Of Movement Completed 08/09/2023 85128 Therapy Proc 1/> Area 15Min Ea Completed 08/09/2023 00963 Hot/Cold Pack Completed 08/05/2023 26624 Hot/Cold Pack Completed 08/05/2023 51426 Therapy Proc, Neuromuscular Reeducation Of Movement Completed 08/05/2023 87492 Therapeutic Activities Direc t, Each 15 Minutes Completed 08/05/2023 30420 Manual Kennel Assistant 1/> Area 15 Min Each Region Completed 08/02/2023 96473 Manual Kennel Assistant 1/> Area 15 Min Each Region Completed 08/02/2023 95008 Therapy Proc, Neuromuscular Reeducation Of Movement Completed 08/02/2023 69165 Therapy Proc 1/> Area 15Min Ea Completed 08/02/2023 74531 Hot/Cold Pack Completed 08/02/2023 81357 Therapeutic Activities Direc t, Each 15 Minutes Completed 07/29/2023 94688 Hot/Cold Pack Completed 07/29/2023 09489 Therapy Proc 1/> Area 15Min Ea Completed 07/29/2023 49912 Therapy Proc, Neuromuscular Reeducation Of Movement Completed 07/29/2023 68012 Manual Kennel Assistant 1/> Area 15 Min Each Region Completed 07/29/2023 32754 Therapeutic Activities Direc t, Each 15 Minutes Completed 07/22/2023 43152 Therapeutic Activities Direc t, Each 15 Minutes Completed 07/22/2023 28226 Manual Kennel Assistant 1/> Area 15 Min Each Region Completed 07/22/2023 80320 Therapy Proc, Neuromuscular Reeducation Of Movement Completed 07/22/2023 06026 Therapy Proc 1/> Area 15Min Ea Completed 07/22/2023 82776 Hot/Cold Pack Completed 07/19/2023 04966 Therapeutic Activities Direc t, Each 15 Minutes Completed 07/19/2023 00225 Hot/Cold Pack Completed 07/19/2023 84231 Therapy Proc 1/> Area 15Min Ea Completed 07/19/2023 24009 Therapy Proc, Neuromuscular Reeducation Of Movement Completed 07/19/2023 16496 Manual Kennel Assistant 1/> Area 15 Min Each Region Completed 07/15/2023 11393 Therapeutic Activities Direc t, Each 15 Minutes Completed 07/15/2023 18635 Manual Kennel Assistant 1/> Area 15 Min Each Region Completed 07/15/2023 52566 Therapy Proc, Neuromuscular Reeducation Of Movement Completed 07/15/2023 34085 Hot/Cold Pack Completed 07/12/2023 54567 Therapeutic Activities Direc t, Each 15 Minutes Completed 07/12/2023 00321 Manual Kennel Assistant 1/> Area 15 Min Each Region Completed 07/12/2023 09777 Therapy Proc, Neuromuscular Reeducation Of Movement Completed 07/12/2023 00492 Therapy Proc 1/> Area 15Min Ea Completed 07/12/2023 35673 Hot/Cold Pack Completed 07/10/2023 44541 Hot/Cold Pack Completed 07/10/2023 94664 Therapy Proc 1/> Area 15Min Ea Completed 07/10/2023 37019 Manual Kennel Assistant 1/> Area 15 Min Each Region Completed 07/10/2023 44583 Therapeutic Activities Direc t, Each 15 Minutes Completed 07/10/2023 06930 Therapy Proc, Neuromuscular Reeducation Of Movement Completed 07/08/2023 03227 Therapeutic Activities Direc t, Each 15 Minutes Completed 07/08/2023 89848 Manual Kennel Assistant 1/> Area 15 Min Each Region Completed 07/08/2023 28125 Therapy Proc, Neuromuscular Reeducation Of Movement Completed 07/08/2023 97823 Therapy Proc 1/> Area 15Min Ea Completed 07/08/2023 56813 Hot/Cold Pack Completed 07/05/2023 31355 Therapeutic Activities Direc t, Each 15 Minutes Completed 07/05/2023 31503 Manual Kennel Assistant 1/> Area 15 Min Each Region Completed 07/05/2023 74436 Therapy Proc, Neuromuscular Reeducation Of Movement Completed 07/05/2023 05409 Therapy Proc 1/> Area 15Min Ea Completed 07/05/2023 57317 Hot/Cold Pack Completed 07/03/2023 38320 Hot/Cold Pack Completed 07/03/2023 62127 Therapy Proc 1/> Area 15Min Ea Completed 07/03/2023 28308 Manual Kennel Assistant 1/> Area 15 Min Each Region Completed 07/03/2023 47972 Therapeutic Activities Direc t, Each 15 Minutes Completed 07/03/2023 87579 Therapy Proc, Neuromuscular Reeducation Of Movement Completed 07/01/2023 32779 Therapeutic Activities Direc t, Each 15 Minutes Completed 07/01/2023 94122 Manual Kennel Assistant 1/> Area 15 Min Each Region Completed 07/01/2023 26055 Therapy Proc, Neuromuscular Reeducation Of Movement Completed 07/01/2023 20719 Therapy Proc 1/> Area 15Min Ea Completed 07/01/2023 79028 Hot/Cold Pack Completed 06/28/2023 56388 Therapy Proc, Neuromuscular Reeducation Of Movement Completed 06/28/2023 82669 Therapy Proc 1/> Area 15Min Ea Completed 06/28/2023 21745 Manual Kennel Assistant 1/> Area 15 Min Each Region Completed 06/28/2023 18751 Therapeutic Activities Direc t, Each 15 Minutes Completed 06/24/2023 54869 Therapeutic Activities Direc t, Each 15 Minutes Completed 06/24/2023 60328 Manual Kennel Assistant 1/> Area 15 Min Each Region Completed 06/24/2023 48980 Therapy Proc, Neuromuscular Reeducation Of Movement Completed 06/24/2023 10881 Therapy Proc 1/> Area 15Min Ea Completed 06/24/2023 73825 Hot/Cold Pack Completed 06/21/2023 02406 Hot/Cold Pack Completed 06/21/2023 20144 Therapy Proc 1/> Area 15Min Ea Completed 06/21/2023 89557 Therapy Proc, Neuromuscular Reeducation Of Movement Completed 06/21/2023 60192 Therapeutic Activities Direc t, Each 15 Minutes Completed 06/21/2023 74858 Manual Kennel Assistant 1/> Area 15 Min Each Region Completed 06/19/2023 66986 Manual Kennel Assistant 1/> Area 15 Min Each Region Completed 06/19/2023 18580 Therapeutic Activities Direc t, Each 15 Minutes Completed 06/19/2023 06675 Hot/Cold Pack Completed 06/19/2023 29563 Therapy Proc, Neuromuscular Reeducation Of Movement Completed 06/19/2023 17272 Therapy Proc 1/> Area 15Min Ea Completed 06/17/2023 16584 Therapeutic Activities Direc t, Each 15 Minutes Completed 06/17/2023 46411 Manual Kennel Assistant 1/> Area 15 Min Each Region Completed 06/17/2023 99758 Therapy Proc, Neuromuscular Reeducation Of Movement Completed 06/17/2023 08713 Therapy Proc 1/> Area 15Min Ea Completed 06/17/2023 80268 Hot/Cold Pack Completed 06/14/2023 68464 Therapeutic Activities Direc t, Each 15 Minutes Completed 06/14/2023 69084 Manual Kennel Assistant 1/> Area 15 Min Each Region Completed 06/14/2023 54968 Therapy Proc, Neuromuscular Reeducation Of Movement Completed 06/14/2023 78218 Therapy Proc 1/> Area 15Min Ea Completed 06/14/2023 40838 Hot/Cold Pack Completed 06/12/2023 78268 Therapy Proc, Neuromuscular Reeducation Of Movement Completed 06/12/2023 59742 Hot/Cold Pack Completed 06/12/2023 01512 Therapy Proc 1/> Area 15Min Ea Completed 06/12/2023 06731 Manual Kennel Assistant 1/> Area 15 Min Each Region Completed 06/12/2023 42012 Therapeutic Activities Direc t, Each 15 Minutes Completed 06/07/2023 70972 Therapeutic Activities Direc t, Each 15 Minutes Completed 06/07/2023 56855 Manual Kennel Assistant 1/> Area 15 Min Each Region Completed 06/07/2023 20372 Therapy Proc, Neuromuscular Reeducation Of Movement Completed 06/07/2023 85195 Therapy Proc 1/> Area 15Min Ea Completed 06/05/2023 84659 Therapeutic Activities Direc t, Each 15 Minutes Completed 06/05/2023 85767 Manual Kennel Assistant 1/> Area 15 Min Each Region Completed 06/05/2023 86241 Therapy Proc, Neuromuscular Reeducation Of Movement Completed 06/05/2023 60388 Therapy Proc 1/> Area 15Min Ea Completed 06/05/2023 98529 Hot/Cold Pack Completed 06/03/2023 68502 Hot/Cold Pack Completed 06/03/2023 95337 Therapy Proc 1/> Area 15Min Ea Completed 06/03/2023 03379 Manual Kennel Assistant 1/> Area 15 Min Each Region Completed 06/03/2023 89180 Therapeutic Activities Direc t, Each 15 Minutes Completed 06/03/2023 55882 Therapy Proc, Neuromuscular Reeducation Of Movement Completed 05/31/2023 58276 Therapeutic Activities Direc t, Each 15 Minutes Completed 05/31/2023 94244 Manual Kennel Assistant 1/> Area 15 Min Each Region Completed 05/31/2023 82660 Therapy Proc, Neuromuscular Reeducation Of Movement Completed 05/31/2023 50971 Hot/Cold Pack Completed 05/29/2023 45174 Therapy Proc, Neuromuscular Reeducation Of Movement Completed 05/29/2023 82844 Hot/Cold Pack Completed 05/29/2023 49443 Manual Kennel Assistant 1/> Area 15 Min Each Region Completed 05/29/2023 88436 Therapeutic Procedure Group Completed 05/29/2023 38766 Therapeutic Activities Direc t, Each 15 Minutes Completed 05/27/2023 76131 Therapeutic Activities Direc t, Each 15 Minutes Completed 05/27/2023 40432 Therapeutic Procedure Group Completed 05/27/2023 14204 Manual Kennel Assistant 1/> Area 15 Min Each Region Completed 05/27/2023 71472 Therapy Proc, Neuromuscular Reeducation Of Movement Completed 05/27/2023 21780 Hot/Cold Pack Completed 05/24/2023 75033 Therapeutic Activities Direc t, Each 15 Minutes Completed 05/24/2023 96465 Hot/Cold Pack Completed 05/24/2023 95449 Therapy Proc 1/> Area 15Min Ea Completed 05/24/2023 00825 Therapy Proc, Neuromuscular Reeducation Of Movement Completed 05/24/2023 09783 Manual Kennel Assistant 1/> Area 15 Min Each Region Completed 05/22/2023 72439 Therapeutic Activities Direc t, Each 15 Minutes Completed 05/22/2023 58764 Manual Kennel Assistant 1/> Area 15 Min Each Region Completed 05/22/2023 72622 Therapy Proc, Neuromuscular Reeducation Of Movement Completed 05/22/2023 61064 Therapy Proc 1/> Area 15Min Ea Completed 05/22/2023 58978 Hot/Cold Pack Completed 05/20/2023 76286 Therapeutic Activities Direc t, Each 15 Minutes Completed 05/20/2023 98998 Manual Kennel Assistant 1/> Area 15 Min Each Region Completed 05/20/2023 58293 Therapy Proc, Neuromuscular Reeducation Of Movement Completed 05/20/2023 44029 Therapy Proc 1/> Area 15Min Ea Completed 05/20/2023 61297 Hot/Cold Pack Completed 05/17/2023 73110 Hot/Cold Pack Completed 05/17/2023 08129 Therapy Proc 1/> Area 15Min Ea Completed 05/17/2023 66374 Manual Kennel Assistant 1/> Area 15 Min Each Region Completed 05/17/2023 43916 Therapeutic Activities Direc t, Each 15 Minutes Completed 05/17/2023 70318 Therapy Proc, Neuromuscular Reeducation Of Movement Completed 05/15/2023 03506 Therapeutic Activities Direc t, Each 15 Minutes Completed 05/15/2023 86996 Manual Kennel Assistant 1/> Area 15 Min Each Region Completed 05/15/2023 51844 Therapy Proc, Neuromuscular Reeducation Of Movement Completed 05/15/2023 35638 Therapy Proc 1/> Area 15Min Ea Completed 05/15/2023 59551 Hot/Cold Pack Completed 2023 44653 Therapeutic Activities Direc t, Each 15 Minutes Completed 2023 55807 Manual Kennel Assistant 1/> Area 15 Min Each Region Completed 2023 95899 Therapy Proc, Neuromuscular Reeducation Of Movement Completed 2023 49831 Therapy Proc 1/> Area 15Min Ea Completed 2023 63355 Hot/Cold Pack Completed 05/10/2023 35290 Hot/Cold Pack Completed 05/10/2023 33235 Therapy Proc 1/> Area 15Min Ea Completed 05/10/2023 71151 Manual Kennel Assistant 1/> Area 15 Min Each Region Completed 05/10/2023 87283 Therapeutic Activities Direc t, Each 15 Minutes Completed 05/10/2023 06065 Therapy Proc, Neuromuscular Reeducation Of Movement Completed 05/08/2023 84103 Therapeutic Activities Direc t, Each 15 Minutes Completed 05/08/2023 16949 Manual Kennel Assistant 1/> Area 15 Min Each Region Completed 05/08/2023 43735 Therapy Proc, Neuromuscular Reeducation Of Movement Completed 05/08/2023 97689 Therapy Proc 1/> Area 15Min Ea Completed 05/08/2023 13638 Hot/Cold Pack Completed 05/06/2023 77052 Manual Kennel Assistant 1/> Area 15 Min Each Region Completed 05/06/2023 53807 Hot/Cold Pack Completed 05/06/2023 20070 Therapy Proc 1/> Area 15Min Ea Completed 05/06/2023 56500 Therapy Proc, Neuromuscular Reeducation Of Movement Completed 05/06/2023 83039 Therapeutic Activities Direc t, Each 15 Minutes Completed 05/02/2023 06990 Therapeutic Activities Direc t, Each 15 Minutes Completed 05/02/2023 49534 Manual Kennel Assistant 1/> Area 15 Min Each Region Completed 05/02/2023 26591 Therapy Proc, Neuromuscular Reeducation Of Movement Completed 05/02/2023 21889 Therapy Proc 1/> Area 15Min Ea Completed 04/30/2023 03309 Hot/Cold Pack Completed 04/30/2023 42138 Therapy Proc 1/> Area 15Min Ea Completed 04/30/2023 66227 Manual Kennel Assistant 1/> Area 15 Min Each Region Completed 04/30/2023 22032 Therapy Proc, Neuromuscular Reeducation Of Movement Completed 04/24/2023 31797 Manual Kennel Assistant 1/> Area 15 Min Each Region Completed 04/24/2023 20095 Therapy Proc, Neuromuscular Reeducation Of Movement Completed 04/24/2023 93653 Therapy Proc 1/> Area 15Min Ea Completed 04/22/2023 46386 Manual Kennel Assistant 1/> Area 15 Min Each Region Completed 04/22/2023 87703 Therapy Proc, Neuromuscular Reeducation Of Movement Completed 04/22/2023 73916 Therapy Proc 1/> Area 15Min Ea Completed 04/22/2023 84206 Hot/Cold Pack Completed 04/19/2023 98444 Manual Kennel Assistant 1/> Area 15 Min Each Region Completed 04/19/2023 69752 Therapy Proc, Neuromuscular Reeducation Of Movement Completed 04/19/2023 27350 Therapy Proc 1/> Area 15Min Ea Completed 04/19/2023 22927 Hot/Cold Pack Completed 04/18/2023 27432 Manual Kennel Assistant 1/> Area 15 Min Each Region Completed 04/18/2023 64057 Therapy Proc, Neuromuscular Reeducation Of Movement Completed 04/18/2023 92150 Therapy Proc 1/> Area 15Min Ea Completed 04/15/2023 97947 Hot/Cold Pack Completed 04/15/2023 73404 Therapy Proc 1/> Area 15Min Ea Completed 04/15/2023 49279 Manual Kennel Assistant 1/> Area 15 Min Each Region Completed 04/15/2023 46066 Therapy Proc, Neuromuscular Reeducation Of Movement Completed 04/12/2023 86391 Manual Kennel Assistant 1/> Area 15 Min Each Region Completed 04/12/2023 40902 Therapy Proc, Neuromuscular Reeducation Of Movement Completed 04/12/2023 75097 Therapy Proc 1/> Area 15Min Ea Completed 04/12/2023 53523 Hot/Cold Pack Completed 04/10/2023 50496 Manual Kennel Assistant 1/> Area 15 Min Each Region Completed 04/10/2023 89224 Therapy Proc, Neuromuscular Reeducation Of Movement Completed 04/10/2023 86843 Therapy Proc 1/> Area 15Min Ea Completed 04/08/2023 51281 Manual Kennel Assistant 1/> Area 15 Min Each Region Completed 04/08/2023 22724 Therapy Proc 1/> Area 15Min Ea Completed 04/08/2023 00398 Therapy Proc, Neuromuscular Reeducation Of Movement Completed 04/05/2023 52546 Manual Kennel Assistant 1/> Area 15 Min Each Region Completed 04/05/2023 94503 Therapy Proc, Neuromuscular Reeducation Of Movement Completed 04/05/2023 45284 Therapy Proc 1/> Area 15Min Ea Completed 04/03/2023 17945 Manual Kennel Assistant /> Area 15 Min Each Region Completed 04/03/2023 30879 Therapy Proc, Neuromuscular Reeducation Of Movement Completed 04/03/2023 22207 Therapy Proc /> Area 15Min Ea Completed Medical Devices Description No Information Available Encounters Type Date Location Provider Dx Diagnosis Office Visit 10[facility]02[facility]23 [facility] R60.0 Localized edema Office Visit 09/06/2023 10:30a [facility] Dawson Almodovar, DO I10 Essential (pr imary) [...] I10 Essential (primary) [facility] 09/02/2023 R26.2 Difficulty in wa lking, not [...] DPT 07/29/2023 M25.511 Pain in right shoulder Ozile Garcia, DPT 07/26/2023 R26.2 Difficulty in wa lking, not elsewhere classified Aik Garcia, DPT 07/26/2023 M25.511 Pain in right [...] in wa lking, not elsewhere classified Aki Gacria, DPT 07/03/2023 M25.511 Pain in right shoulder [...] Difficulty in wa lking, not elsewhere classified Confucianist Smith, DPT 04/08/2023 M25.511 Pain in right shoulder Oziel Garcia, DPT 04/05/2023 R26.2 Difficulty in wa lking, not elsewhere classified Confucianist Garcia, DPT 04/05/2023 M25.511 Pain in right shoulder Oziel Garcia, DPT 04/03/2023 R26.2 Difficulty in wa lking, not elsewhere classified Confucianist Smith, DPT 04/03/2023 M25.511 Pain in right shoulder Oziel Garcia, DPT Plan of Treatment Future Appointment(s):* 10/08/2023 3:00 pm - THADDEUS Ledbetter at [facility] * 03/13/2024 10:30 am - Dawson Almodovar DO at [facility] * 03/06/2024 9:00 am - [facility] 10/02/2023 - THADDEUS Ledbetter* R60.0 Localized edema* [...]
--- OUTSIDE RECORDS SUMMARY | 2023-10-11 13:13 | External Medical Summary | Continuity of Care Document ---
Author Name Unknown Organization [facility] Address [address] [place] [address] Phone [phone] Problems Active Problems Provider Date Essential hypertension [...] SIG Qnty Indications Order ing Provider Date [id number] Tablets 2 tablets by mouth every day 30tabs R60.0 Dawson Almodovar DO 10/05/2022 Multi + [place]-3 Adult GummiesChewtabs 1 by mouth every day Dawson Almodovar DO 08/08/2022 Vitamin B ComplexTablets 1 by mouth every day Dawson Almodovar DO 08/08/2022 Losartan Potassium/Hydrochlorothi -96fo Tablets 1 by mouth every day 90tabs I10 Dawson Almodovar DO 03/21/2020 Juice Plus Fibre` Dawson Amlodovar DO 02/19/2018 Aspirin Adult Low Mdmq78ab Tablets DR 1 by mouth every day Unknown Citalopram Unbythbjitlu20uk Tablets 1 by mouth every day 90tabs F41.1 Dawson Almodovar, DO Vitamin D3 Maximum [id number] (5000 Ut) Capsules 1 by mouth once daily Unknown Immunizations CPT Code Status Date Vaccine Lot # [id number] Given 07/14/2009 Pneumococcal Vaccine/Pneu movax 23 58951 Refused 09/06/2023 Sarscov2 Vaccin e 50 mcg/0.5 ML For Im Use 12 Yrs And Older 85982 Refused 09/06/2023 Pneumococcal Conjugate-Pr evnar 20 24464 Refused 10/19/2022 Shingrix 77959 Refused 08/08/2022 Pneumococcal Conjugate-Pr evnar 20 84735 Refused 08/08/2022 Influenza Vac, Split, Preservative Free High Dose Age 65 & > 30032 Refused 04/20/2022 Moderna Sars-Co v-2 (Cov-19) vacc,100 mcg/ 0.5 mL 12Y+EMR Doc Only 48708 Refused 10/16/2021 Influenza Virus Vaccine, Quadrivalent (Cciiv4), Derived From Cell 34048 Refused 10/16/2021 Shingrix 35997 Refused 10/16/2021 Pneumococcal Conjugate-Pr evnar 13 22692 Refused 03/20/2021 Pfizer Sars-Cov -2 (Cov-19) vacc 30mcg/0.3ML 12Y+ EMR Doc Only 05158 Refused 04/17/2019 Influenza Vacci ne, Inactivated, Subunit, Adjuvanted, For Intrmus 88769 Refused 01/29/2019 Tdap (Tetanus, diphtheria & acel. pertussis) Adacel or Boostrix 07279 Refused 01/29/2019 Pneumococcal Conjugate-Pr evnar 13 Vital Signs Date Vital Result Comment 09/06/2023 10:35am BP Systolic 130 mmHg BP Diastolic 78 mmHg Body Temperature 98.2 F Heart Rate 76 /min Respiratory Rate 16 /min Weight 205.31 lb Weight 93.130 kg Height 62 inches 5'2" BMI (Body Mass Index) 37.5 kg/m2 [place] Body Weight 110 lb 02/22/2023 10:40am BP Systolic 138 mmHg BP Diastolic 82 mmHg Body Temperature 98.2 F Heart Rate 84 /min Respiratory Rate 16 /min Weight 196.12 lb Weight 88.962 kg Results Test Acquired Date Facility Test Result H/L Range N ote BMP 09/05/2023 [facility] [address] [place], [place] [id number] [phone] Glucose 88 mg/dL 70-110 BUN 23 mg/dL 6-25 Creatinine 0.8 mg/dL 0.5-1.2 Sodium 138 mEq/L 135-145 Potassium 4.1 mEq/L 3.5-5.0 Chloride 100 mEq/L 95-107 Co-2 29 mEq/L 24-31 Calcium 9.4 mg/dL 8.5-10.6 GFR 72 ML/MIN/1.73SQM >60 Procedures Date Code Description Status 09/16/2023 29057 Manual Die Trimmer 1/> Area 15 Min Each Region Completed 09/16/2023 09055 Therapy Proc, Neuromuscular Reeducation Of Movement Completed 09/16/2023 69458 Therapy Proc 1/> Area 15Min Ea Completed 09/16/2023 12810 Hot/Cold Pack Completed 09/16/2023 59743 Therapeutic Activities Direc t, Each 15 Minutes Completed 09/09/2023 01247 Therapeutic Activities Direc t, Each 15 Minutes Completed 09/09/2023 47719 Manual Die Trimmer 1/> Area 15 Min Each Region Completed 09/09/2023 34477 Therapy Proc, Neuromuscular Reeducation Of Movement Completed 09/09/2023 47172 Therapy Proc 1/> Area 15Min Ea Completed 09/09/2023 17706 Hot/Cold Pack Completed 09/06/2023 1101F PT SCR Future Fall Risk, No Fall Or 1 W/Out Injury Completed 09/05/2023 36106 Venipuncture Routine Complet ed 09/02/2023 45006 Therapeutic Activities Direc t, Each 15 Minutes Completed 09/02/2023 33671 Manual Die Trimmer 1/> Area 15 Min Each Region Completed 09/02/2023 74769 Therapy Proc, Neuromuscular Reeducation Of Movement Completed 09/02/2023 80999 Therapy Proc 1/> Area 15Min Ea Completed 09/02/2023 28698 Hot/Cold Pack Completed 08/30/2023 96213 Therapeutic Activities Direc t, Each 15 Minutes Completed 08/30/2023 45562 Hot/Cold Pack Completed 08/30/2023 64732 Therapy Proc 1/> Area 15Min Ea Completed 08/30/2023 34366 Therapy Proc, Neuromuscular Reeducation Of Movement Completed 08/30/2023 24097 Manual Die Trimmer 1/> Area 15 Min Each Region Completed 08/27/2023 80040 Therapeutic Activities Direc t, Each 15 Minutes Completed 08/27/2023 01272 Manual Die Trimmer 1/> Area 15 Min Each Region Completed 08/27/2023 20094 Therapy Proc, Neuromuscular Reeducation Of Movement Completed 08/27/2023 83772 Therapy Proc 1/> Area 15Min Ea Completed 08/27/2023 51510 Hot/Cold Pack Completed 08/23/2023 99589 Therapeutic Activities Direc t, Each 15 Minutes Completed 08/23/2023 51493 Manual Die Trimmer 1/> Area 15 Min Each Region Completed 08/23/2023 08121 Therapy Proc, Neuromuscular Reeducation Of Movement Completed 08/23/2023 97332 Therapy Proc 1/> Area 15Min Ea Completed 08/23/2023 77454 Hot/Cold Pack Completed 08/20/2023 38410 Therapy Proc, Neuromuscular Reeducation Of Movement Completed 08/20/2023 85603 Hot/Cold Pack Completed 08/20/2023 72609 Therapy Proc 1/> Area 15Min Ea Completed 08/20/2023 40816 Manual Die Trimmer 1/> Area 15 Min Each Region Completed 08/20/2023 96302 Therapeutic Activities Direc t, Each 15 Minutes Completed 08/16/2023 81510 Therapeutic Activities Direc t, Each 15 Minutes Completed 08/16/2023 62011 Manual Die Trimmer 1/> Area 15 Min Each Region Completed 08/16/2023 49886 Therapy Proc, Neuromuscular Reeducation Of Movement Completed 08/16/2023 36398 Therapy Proc 1/> Area 15Min Ea Completed 08/16/2023 80971 Hot/Cold Pack Completed 08/12/2023 06851 Therapy Proc, Neuromuscular Reeducation Of Movement Completed 08/12/2023 75897 Hot/Cold Pack Completed 08/12/2023 35609 Therapy Proc 1/> Area 15Min Ea Completed 08/12/2023 49893 Manual Die Trimmer 1/> Area 15 Min Each Region Completed 08/12/2023 19061 Therapeutic Activities Direc t, Each 15 Minutes Completed 08/09/2023 36636 Therapeutic Activities Direc t, Each 15 Minutes Completed 08/09/2023 93242 Manual Die Trimmer 1/> Area 15 Min Each Region Completed 08/09/2023 73739 Therapy Proc, Neuromuscular Reeducation Of Movement Completed 08/09/2023 60584 Therapy Proc 1/> Area 15Min Ea Completed 08/09/2023 66653 Hot/Cold Pack Completed 08/05/2023 35458 Therapeutic Activities Direc t, Each 15 Minutes Completed 08/05/2023 49939 Hot/Cold Pack Completed 08/05/2023 70146 Therapy Proc, Neuromuscular Reeducation Of Movement Completed 08/05/2023 51522 Manual Die Trimmer 1/> Area 15 Min Each Region Completed 08/02/2023 70507 Therapeutic Activities Direc t, Each 15 Minutes Completed 08/02/2023 17139 Manual Die Trimmer 1/> Area 15 Min Each Region Completed 08/02/2023 72884 Therapy Proc, Neuromuscular Reeducation Of Movement Completed 08/02/2023 42352 Therapy Proc 1/> Area 15Min Ea Completed 08/02/2023 37110 Hot/Cold Pack Completed 07/29/2023 77726 Therapeutic Activities Direc t, Each 15 Minutes Completed 07/29/2023 85436 Manual Die Trimmer 1/> Area 15 Min Each Region Completed 07/29/2023 50538 Therapy Proc, Neuromuscular Reeducation Of Movement Completed 07/29/2023 79686 Therapy Proc 1/> Area 15Min Ea Completed 07/29/2023 25442 Hot/Cold Pack Completed 07/22/2023 52120 Therapy Proc, Neuromuscular Reeducation Of Movement Completed 07/22/2023 11461 Hot/Cold Pack Completed 07/22/2023 60593 Therapy Proc 1/> Area 15Min Ea Completed 07/22/2023 27775 Manual Die Trimmer 1/> Area 15 Min Each Region Completed 07/22/2023 65863 Therapeutic Activities Direc t, Each 15 Minutes Completed 07/19/2023 20430 Therapeutic Activities Direc t, Each 15 Minutes Completed 07/19/2023 61545 Manual Die Trimmer 1/> Area 15 Min Each Region Completed 07/19/2023 00627 Therapy Proc, Neuromuscular Reeducation Of Movement Completed 07/19/2023 32170 Therapy Proc 1/> Area 15Min Ea Completed 07/19/2023 72864 Hot/Cold Pack Completed 07/15/2023 25919 Therapy Proc, Neuromuscular Reeducation Of Movement Completed 07/15/2023 46456 Hot/Cold Pack Completed 07/15/2023 46748 Manual Die Trimmer 1/> Area 15 Min Each Region Completed 07/15/2023 38698 Therapeutic Activities Direc t, Each 15 Minutes Completed 07/12/2023 07468 Therapeutic Activities Direc t, Each 15 Minutes Completed 07/12/2023 86778 Manual Die Trimmer 1/> Area 15 Min Each Region Completed 07/12/2023 38111 Therapy Proc, Neuromuscular Reeducation Of Movement Completed 07/12/2023 58321 Therapy Proc 1/> Area 15Min Ea Completed 07/12/2023 47170 Hot/Cold Pack Completed 07/10/2023 27573 Therapeutic Activities Direc t, Each 15 Minutes Completed 07/10/2023 60285 Hot/Cold Pack Completed 07/10/2023 73441 Therapy Proc 1/> Area 15Min Ea Completed 07/10/2023 18455 Therapy Proc, Neuromuscular Reeducation Of Movement Completed 07/10/2023 20411 Manual Die Trimmer 1/> Area 15 Min Each Region Completed 07/08/2023 59732 Therapeutic Activities Direc t, Each 15 Minutes Completed 07/08/2023 89874 Manual Die Trimmer 1/> Area 15 Min Each Region Completed 07/08/2023 84549 Therapy Proc, Neuromuscular Reeducation Of Movement Completed 07/08/2023 38398 Therapy Proc 1/> Area 15Min Ea Completed 07/08/2023 35448 Hot/Cold Pack Completed 07/05/2023 58458 Therapeutic Activities Direc t, Each 15 Minutes Completed 07/05/2023 14384 Manual Die Trimmer 1/> Area 15 Min Each Region Completed 07/05/2023 37924 Therapy Proc, Neuromuscular Reeducation Of Movement Completed 07/05/2023 52649 Therapy Proc 1/> Area 15Min Ea Completed 07/05/2023 88676 Hot/Cold Pack Completed 07/03/2023 92620 Therapy Proc 1/> Area 15Min Ea Completed 07/03/2023 05623 Hot/Cold Pack Completed 07/03/2023 48809 Therapy Proc, Neuromuscular Reeducation Of Movement Completed 07/03/2023 11032 Therapeutic Activities Direc t, Each 15 Minutes Completed 07/03/2023 70553 Manual Die Trimmer 1/> Area 15 Min Each Region Completed 07/01/2023 78856 Therapeutic Activities Direc t, Each 15 Minutes Completed 07/01/2023 77905 Manual Die Trimmer 1/> Area 15 Min Each Region Completed 07/01/2023 81344 Therapy Proc, Neuromuscular Reeducation Of Movement Completed 07/01/2023 46582 Therapy Proc 1/> Area 15Min Ea Completed 07/01/2023 11087 Hot/Cold Pack Completed 06/28/2023 10978 Therapy Proc 1/> Area 15Min Ea Completed 06/28/2023 64616 Therapy Proc, Neuromuscular Reeducation Of Movement Completed 06/28/2023 97586 Manual Die Trimmer 1/> Area 15 Min Each Region Completed 06/28/2023 37173 Therapeutic Activities Direc t, Each 15 Minutes Completed 06/24/2023 64091 Therapeutic Activities Direc t, Each 15 Minutes Completed 06/24/2023 23664 Manual Die Trimmer 1/> Area 15 Min Each Region Completed 06/24/2023 27963 Therapy Proc, Neuromuscular Reeducation Of Movement Completed 06/24/2023 85912 Therapy Proc 1/> Area 15Min Ea Completed 06/24/2023 97118 Hot/Cold Pack Completed 06/21/2023 27962 Therapeutic Activities Direc t, Each 15 Minutes Completed 06/21/2023 44642 Hot/Cold Pack Completed 06/21/2023 65965 Therapy Proc 1/> Area 15Min Ea Completed 06/21/2023 42430 Therapy Proc, Neuromuscular Reeducation Of Movement Completed 06/21/2023 17360 Manual Die Trimmer 1/> Area 15 Min Each Region Completed 06/19/2023 42335 Therapeutic Activities Direc t, Each 15 Minutes Completed 06/19/2023 41072 Manual Die Trimmer 1/> Area 15 Min Each Region Completed 06/19/2023 38196 Therapy Proc, Neuromuscular Reeducation Of Movement Completed 06/19/2023 65086 Therapy Proc 1/> Area 15Min Ea Completed 06/19/2023 72106 Hot/Cold Pack Completed 06/17/2023 05491 Therapeutic Activities Direc t, Each 15 Minutes Completed 06/17/2023 52984 Manual Die Trimmer 1/> Area 15 Min Each Region Completed 06/17/2023 21787 Therapy Proc, Neuromuscular Reeducation Of Movement Completed 06/17/2023 98973 Therapy Proc 1/> Area 15Min Ea Completed 06/17/2023 82574 Hot/Cold Pack Completed 06/14/2023 21773 Therapy Proc 1/> Area 15Min Ea Completed 06/14/2023 48438 Hot/Cold Pack Completed 06/14/2023 63368 Manual Die Trimmer 1/> Area 15 Min Each Region Completed 06/14/2023 45036 Therapeutic Activities Direc t, Each 15 Minutes Completed 06/14/2023 47238 Therapy Proc, Neuromuscular Reeducation Of Movement Completed 06/12/2023 71975 Manual Die Trimmer 1/> Area 15 Min Each Region Completed 06/12/2023 49293 Therapy Proc, Neuromuscular Reeducation Of Movement Completed 06/12/2023 17763 Therapy Proc 1/> Area 15Min Ea Completed 06/12/2023 05360 Hot/Cold Pack Completed 06/12/2023 61540 Therapeutic Activities Direc t, Each 15 Minutes Completed 06/07/2023 81524 Therapeutic Activities Direc t, Each 15 Minutes Completed 06/07/2023 70023 Manual Die Trimmer 1/> Area 15 Min Each Region Completed 06/07/2023 05751 Therapy Proc, Neuromuscular Reeducation Of Movement Completed 06/07/2023 36546 Therapy Proc 1/> Area 15Min Ea Completed 06/05/2023 10806 Therapeutic Activities Direc t, Each 15 Minutes Completed 06/05/2023 80134 Manual Die Trimmer 1/> Area 15 Min Each Region Completed 06/05/2023 96129 Therapy Proc, Neuromuscular Reeducation Of Movement Completed 06/05/2023 05341 Therapy Proc 1/> Area 15Min Ea Completed 06/05/2023 12193 Hot/Cold Pack Completed 06/03/2023 34579 Hot/Cold Pack Completed 06/03/2023 92128 Therapy Proc 1/> Area 15Min Ea Completed 06/03/2023 93911 Manual Die Trimmer 1/> Area 15 Min Each Region Completed 06/03/2023 76170 Therapeutic Activities Direc t, Each 15 Minutes Completed 06/03/2023 19591 Therapy Proc, Neuromuscular Reeducation Of Movement Completed 05/31/2023 16564 Therapeutic Activities Direc t, Each 15 Minutes Completed 05/31/2023 55647 Manual Die Trimmer 1/> Area 15 Min Each Region Completed 05/31/2023 29961 Therapy Proc, Neuromuscular Reeducation Of Movement Completed 05/31/2023 20800 Hot/Cold Pack Completed 05/29/2023 55465 Therapy Proc, Neuromuscular Reeducation Of Movement Completed 05/29/2023 47817 Hot/Cold Pack Completed 05/29/2023 04363 Manual Die Trimmer 1/> Area 15 Min Each Region Completed 05/29/2023 30465 Therapeutic Procedure Group Completed 05/29/2023 31117 Therapeutic Activities Direc t, Each 15 Minutes Completed 05/27/2023 39728 Therapeutic Activities Direc t, Each 15 Minutes Completed 05/27/2023 30682 Therapeutic Procedure Group Completed 05/27/2023 13904 Manual Die Trimmer 1/> Area 15 Min Each Region Completed 05/27/2023 68515 Therapy Proc, Neuromuscular Reeducation Of Movement Completed 05/27/2023 27123 Hot/Cold Pack Completed 05/24/2023 09850 Therapeutic Activities Direc t, Each 15 Minutes Completed 05/24/2023 99820 Hot/Cold Pack Completed 05/24/2023 29063 Therapy Proc 1/> Area 15Min Ea Completed 05/24/2023 74271 Manual Die Trimmer 1/> Area 15 Min Each Region Completed 05/24/2023 74052 Therapy Proc, Neuromuscular Reeducation Of Movement Completed 05/22/2023 41530 Therapeutic Activities Direc t, Each 15 Minutes Completed 05/22/2023 19290 Manual Die Trimmer 1/> Area 15 Min Each Region Completed 05/22/2023 04938 Therapy Proc, Neuromuscular Reeducation Of Movement Completed 05/22/2023 41292 Therapy Proc 1/> Area 15Min Ea Completed 05/22/2023 50871 Hot/Cold Pack Completed 05/20/2023 86135 Therapeutic Activities Direc t, Each 15 Minutes Completed 05/20/2023 07854 Manual Die Trimmer 1/> Area 15 Min Each Region Completed 05/20/2023 80938 Therapy Proc, Neuromuscular Reeducation Of Movement Completed 05/20/2023 98636 Therapy Proc 1/> Area 15Min Ea Completed 05/20/2023 98473 Hot/Cold Pack Completed 05/17/2023 82779 Therapy Proc 1/> Area 15Min Ea Completed 05/17/2023 40404 Hot/Cold Pack Completed 05/17/2023 59786 Therapy Proc, Neuromuscular Reeducation Of Movement Completed 05/17/2023 46971 Manual Die Trimmer 1/> Area 15 Min Each Region Completed 05/17/2023 43444 Therapeutic Activities Direc t, Each 15 Minutes Completed 05/15/2023 12323 Therapeutic Activities Direc t, Each 15 Minutes Completed 05/15/2023 55322 Manual Die Trimmer 1/> Area 15 Min Each Region Completed 05/15/2023 02176 Therapy Proc, Neuromuscular Reeducation Of Movement Completed 05/15/2023 54163 Therapy Proc 1/> Area 15Min Ea Completed 05/15/2023 93385 Hot/Cold Pack Completed 2023 21908 Therapeutic Activities Direc t, Each 15 Minutes Completed 2023 22931 Manual Die Trimmer 1/> Area 15 Min Each Region Completed 2023 74072 Therapy Proc, Neuromuscular Reeducation Of Movement Completed 2023 76686 Therapy Proc 1/> Area 15Min Ea Completed 2023 55623 Hot/Cold Pack Completed 05/10/2023 12395 Hot/Cold Pack Completed 05/10/2023 10682 Therapy Proc 1/> Area 15Min Ea Completed 05/10/2023 61293 Therapy Proc, Neuromuscular Reeducation Of Movement Completed 05/10/2023 72211 Therapeutic Activities Direc t, Each 15 Minutes Completed 05/10/2023 24959 Manual Die Trimmer 1/> Area 15 Min Each Region Completed 05/08/2023 81829 Manual Die Trimmer 1/> Area 15 Min Each Region Completed 05/08/2023 11337 Therapy Proc, Neuromuscular Reeducation Of Movement Completed 05/08/2023 64004 Therapy Proc 1/> Area 15Min Ea Completed 05/08/2023 73998 Hot/Cold Pack Completed 05/08/2023 13148 Therapeutic Activities Direc t, Each 15 Minutes Completed 05/06/2023 44554 Therapeutic Activities Direc t, Each 15 Minutes Completed 05/06/2023 69840 Manual Die Trimmer 1/> Area 15 Min Each Region Completed 05/06/2023 57014 Therapy Proc, Neuromuscular Reeducation Of Movement Completed 05/06/2023 57528 Therapy Proc 1/> Area 15Min Ea Completed 05/06/2023 58194 Hot/Cold Pack Completed 05/02/2023 36931 Therapeutic Activities Direc t, Each 15 Minutes Completed 05/02/2023 75207 Manual Die Trimmer 1/> Area 15 Min Each Region Completed 05/02/2023 04382 Therapy Proc, Neuromuscular Reeducation Of Movement Completed 05/02/2023 72754 Therapy Proc 1/> Area 15Min Ea Completed 04/30/2023 39444 Therapy Proc, Neuromuscular Reeducation Of Movement Completed 04/30/2023 01797 Hot/Cold Pack Completed 04/30/2023 47440 Therapy Proc 1/> Area 15Min Ea Completed 04/30/2023 67614 Manual Die Trimmer 1/> Area 15 Min Each Region Completed 04/24/2023 91024 Manual Die Trimmer 1/> Area 15 Min Each Region Completed 04/24/2023 97399 Therapy Proc, Neuromuscular Reeducation Of Movement Completed 04/24/2023 95537 Therapy Proc 1/> Area 15Min Ea Completed 04/22/2023 77364 Manual Die Trimmer 1/> Area 15 Min Each Region Completed 04/22/2023 23359 Therapy Proc, Neuromuscular Reeducation Of Movement Completed 04/22/2023 44900 Therapy Proc 1/> Area 15Min Ea Completed 04/22/2023 21529 Hot/Cold Pack Completed 04/19/2023 23149 Manual Die Trimmer 1/> Area 15 Min Each Region Completed 04/19/2023 70831 Therapy Proc, Neuromuscular Reeducation Of Movement Completed 04/19/2023 51459 Therapy Proc 1/> Area 15Min Ea Completed 04/19/2023 28719 Hot/Cold Pack Completed 04/18/2023 79855 Therapy Proc 1/> Area 15Min Ea Completed 04/18/2023 84327 Manual Die Trimmer 1/> Area 15 Min Each Region Completed 04/18/2023 81106 Therapy Proc, Neuromuscular Reeducation Of Movement Completed 04/15/2023 89786 Manual Die Trimmer 1/> Area 15 Min Each Region Completed 04/15/2023 66099 Therapy Proc, Neuromuscular Reeducation Of Movement Completed 04/15/2023 76317 Therapy Proc 1/> Area 15Min Ea Completed 04/15/2023 49495 Hot/Cold Pack Completed 04/12/2023 46484 Manual Die Trimmer 1/> Area 15 Min Each Region Completed 04/12/2023 81492 Therapy Proc, Neuromuscular Reeducation Of Movement Completed 04/12/2023 51260 Therapy Proc 1/> Area 15Min Ea Completed 04/12/2023 41502 Hot/Cold Pack Completed 04/10/2023 44993 Manual Die Trimmer 1/> Area 15 Min Each Region Completed 04/10/2023 26841 Therapy Proc, Neuromuscular Reeducation Of Movement Completed 04/10/2023 42068 Therapy Proc 1/> Area 15Min Ea Completed 04/08/2023 18102 Manual Die Trimmer 1/> Area 15 Min Each Region Completed 04/08/2023 70967 Therapy Proc, Neuromuscular Reeducation Of Movement Completed 04/08/2023 21848 Therapy Proc 1/> Area 15Min Ea Completed 04/05/2023 37078 Therapy Proc 1/> Area 15Min Ea Completed 04/05/2023 19167 Therapy Proc, Neuromuscular Reeducation Of Movement Completed 04/05/2023 89557 Manual Die Trimmer 1/> Area 15 Min Each Region Completed 04/03/2023 44244 Manual Die Trimmer 1/> Area 15 Min Each Region Completed 04/03/2023 45732 Therapy Proc, Neuromuscular Reeducation Of Movement Completed 04/03/2023 02978 Therapy Proc 1/> Area 15Min Ea Completed 04/01/2023 64835 Manual Die Trimmer 1/> Area 15 Min Each Region Completed 04/01/2023 66540 Therapy Proc, Neuromuscular Reeducation Of Movement Completed 04/01/2023 44252 Therapy Proc 1/> Area 15Min Ea Completed 03/29/2023 05858 Manual Die Trimmer 1/> Area 15 Min Each Region Completed 03/29/2023 23369 Therapy Proc, Neuromuscular Reeducation Of Movement Completed 03/29/2023 86545 Therapy Proc 1/> Area 15Min Ea Completed 03/27/2023 06427 Manual Die Trimmer 1/> Area 15 Min Each Region Completed 03/27/2023 37299 Therapy Proc, Neuromuscular Reeducation Of Movement Completed 03/27/2023 14823 Therapy Proc 1/> Area 15Min Ea Completed 03/25/2023 79067 Manual Die Trimmer 1/> Area 15 Min Each Region Completed 03/25/2023 50811 Therapy Proc, Neuromuscular Reeducation Of Movement Completed 03/25/2023 68101 Therapy Proc 1/> Area 15Min Ea Completed Medical Devices Description No Information Available Encounters Type Date Location Provider Dx Diagnosis Office Visit 09/06/2023 10:30a [facility] Almodovar DO I10 Essential (pr imary) hypertension 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 F41.1 Generalized anxiety disorder R60.0 Localized edema Assessments Date Code Description Provider 09/16/2023 R26.2 Difficulty in wa [place]king, not [...] I10 Essential (primary) hyperten vick[facility] 09/02/2023 R26.2 Difficulty in wa lking, not [...] Difficulty in wa lking, not elsewhere classified GABRIELLE EspinozaT 08/20/2023 M25.511 Pain in right shoulder Oziel [...] Pain in right shoulder Oziel Garcia, DPT 03/27/2023 R26.2 Difficulty in wa lking, not elsewhere classified Aki Garcia, DPT 03/27/2023 M25.511 Pain in right shoulder Oziel Garcia, DPT 03/25/2023 R26.2 Difficulty in wa lking, not elsewhere classified Aki Garcia, GABRIELLET 03/25/2023 M25.511 Pain in right shoulder Oziel Garcia DPT Plan of Treatment Future Appointment(s):* 03/13/2024 10:30 am - Dawson Almodovar DO at [facility] * 03/06/2024 9:00 am - [facility] Functional Status Description No Information Available Mental Status Description No Information Available Referrals Description No Information Available
--- OUTSIDE RECORDS SUMMARY | 2023-10-11 13:13 | External Medical Summary | Continuity of Care Document ---
Author Name Unknown Organization [facility] Address [address] [place] [address] Phone [phone] Problems Active Problems Provider Date Essential hypertension [...] SIG Qnty Indications Order ing Provider Date [id number] Tablets 2 tablets by mouth every day 30tabs R60.0 Dawson Almodovar DO 10/05/2022 Multi + Realitos-3 Adult GummiesChewtabs 1 by mouth every day Dawson Almodovar DO 08/08/2022 Vitamin B ComplexTablets 1 by mouth every day Dawson Almodovar DO 08/08/2022 Losartan Potassium/Hydrochlorothi [id number] Tablets 1 by mouth every day 90tabs I10 Dawson Almodovar DO 03/21/2020 Juice Plus Fibre` Dawson Almodovar DO 02/19/2018 Aspirin Adult Low Ijhv16el Tablets DR 1 by mouth every day Unknown Citalopram Iaiafyvwtmwr38hc Tablets 1 by mouth every day 90tabs F41.1 Dawson Almodovar, DO Vitamin D3 Maximum [id number] (5000 Ut) Capsules 1 by mouth once daily Unknown Immunizations CPT Code Status Date Vaccine Lot # [id number] Given 07/14/2009 Pneumococcal Vaccine/Pneu movax 23 48024 Refused 09/06/2023 Sarscov2 Vaccin e 50 mcg/0.5 ML For Im Use 12 Yrs And Older 20538 Refused 09/06/2023 Pneumococcal Conjugate-Pr evnar 20 61948 Refused 10/19/2022 Shingrix 22373 Refused 08/08/2022 Pneumococcal Conjugate-Pr evnar 20 46763 Refused 08/08/2022 Influenza Vac, Split, Preservative Free High Dose Age 65 & > 48843 Refused 04/20/2022 Moderna Sars-Co v-2 (Cov-19) vacc,100 mcg/ 0.5 mL 12Y+EMR Doc Only [id number] Refused 10/16/2021 Influenza Virus Vaccine, Quadrivalent (Cciiv4), Derived From Cell 23361 Refused 10/16/2021 Shingrix 22703 Refused 10/16/2021 Pneumococcal Conjugate-Pr evnar 13 94183 Refused 03/20/2021 Pfizer Sars-Cov -2 (Cov-19) vacc 30mcg/0.3ML 12Y+ EMR Doc Only 49510 Refused 04/17/2019 Influenza Vacci ne, Inactivated, Subunit, Adjuvanted, For Intrmus 01219 Refused 01/29/2019 Tdap (Tetanus, diphtheria & acel. pertussis) Adacel or Boostrix 48986 Refused 01/29/2019 Pneumococcal Conjugate-Pr evnar 13 Vital Signs Date Vital Result Comment 09/06/2023 10:35am BP Systolic 130 mmHg BP Diastolic 78 mmHg Body Temperature 98.2 F Heart Rate 76 /min Respiratory Rate 16 /min Weight 205.31 lb Weight 93.130 kg Height 62 inches 5'2" BMI (Body Mass Index) 37.5 kg/m2 [place] Body Weight 110 lb 02/22/2023 10:40am BP Systolic 138 mmHg BP Diastolic 82 mmHg Body Temperature 98.2 F Heart Rate 84 /min Respiratory Rate 16 /min Weight 196.12 lb Weight 88.962 kg Results Test Acquired Date Facility Test Result H/L Range N ote BMP 09/05/2023 [facility] [address], [place] [id number] [phone] Glucose 88 mg/dL 70-110 BUN 23 mg/dL 6-25 Creatinine 0.8 mg/dL 0.5-1.2 Sodium 138 mEq/L 135-145 Potassium 4.1 mEq/L 3.5-5.0 Chloride 100 mEq/L 95-107 Co-2 29 mEq/L 24-31 Calcium 9.4 mg/dL 8.5-10.6 GFR 72 ML/MIN/1.73SQM >60 Procedures Date Code Description Status 09/06/2023 1101F PT SCR Future Fall Risk, No Fall Or 1 W/Out Injury Completed 09/05/2023 99560 Venipuncture Routine Complet ed 09/02/2023 79911 Therapeutic Activities Direc t, Each 15 Minutes Completed 09/02/2023 80987 [employer] Group Leader 1/> Area 15 Min Each Region Completed 09/02/2023 32126 Therapy Proc, Neuromuscular Reeducation Of Movement Completed 09/02/2023 47968 Therapy Proc 1/> Area 15Min Ea Completed 09/02/2023 07621 Hot/Cold Pack Completed 08/30/2023 98029 Therapy Proc 1/> Area 15Min Ea Completed 08/30/2023 14663 Hot/Cold Pack Completed 08/30/2023 38682 Therapy Proc, Neuromuscular Reeducation Of Movement Completed 08/30/2023 72523 [employer] Group Leader 1/> Area 15 Min Each Region Completed 08/30/2023 57474 Therapeutic Activities Direc t, Each 15 Minutes Completed 08/27/2023 79425 Therapeutic Activities Direc t, Each 15 Minutes Completed 08/27/2023 86530 [employer] Group Leader 1/> Area 15 Min Each Region Completed 08/27/2023 19211 Therapy Proc, Neuromuscular Reeducation Of Movement Completed 08/27/2023 17467 Therapy Proc 1/> Area 15Min Ea Completed 08/27/2023 28837 Hot/Cold Pack Completed 08/23/2023 84986 Therapeutic Activities Direc t, Each 15 Minutes Completed 08/23/2023 27261 Hot/Cold Pack Completed 08/23/2023 15181 Therapy Proc 1/> Area 15Min Ea Completed 08/23/2023 81193 Therapy Proc, Neuromuscular Reeducation Of Movement Completed 08/23/2023 50348 Manual [employer] Group Leader 1/> Area 15 Min Each Region Completed 08/20/2023 34548 Therapeutic Activities Direc t, Each 15 Minutes Completed 08/20/2023 89689 [employer] Group Leader 1/> Area 15 Min Each Region Completed 08/20/2023 86474 Therapy Proc, Neuromuscular Reeducation Of Movement Completed 08/20/2023 23779 Therapy Proc 1/> Area 15Min Ea Completed 08/20/2023 20660 Hot/Cold Pack Completed 08/16/2023 79716 Therapeutic Activities Direc t, Each 15 Minutes Completed 08/16/2023 90136 [employer] Group Leader 1/> Area 15 Min Each Region Completed 08/16/2023 72525 Therapy Proc, Neuromuscular Reeducation Of Movement Completed 08/16/2023 39597 Therapy Proc 1/> Area 15Min Ea Completed 08/16/2023 86273 Hot/Cold Pack Completed 08/12/2023 65529 Hot/Cold Pack Completed 08/12/2023 18324 Therapy Proc 1/> Area 15Min Ea Completed 08/12/2023 61237 [employer] Group Leader 1/> Area 15 Min Each Region Completed 08/12/2023 96416 Therapy Proc, Neuromuscular Reeducation Of Movement Completed 08/12/2023 47561 Therapeutic Activities Direc t, Each 15 Minutes Completed 08/09/2023 57176 Therapeutic Activities Direc t, Each 15 Minutes Completed 08/09/2023 42437 [employer] Group Leader 1/> Area 15 Min Each Region Completed 08/09/2023 90547 Therapy Proc, Neuromuscular Reeducation Of Movement Completed 08/09/2023 13140 Therapy Proc 1/> Area 15Min Ea Completed 08/09/2023 19182 Hot/Cold Pack Completed 08/05/2023 99123 Hot/Cold Pack Completed 08/05/2023 23317 Therapy Proc, Neuromuscular Reeducation Of Movement Completed 08/05/2023 44729 [employer] Group Leader 1/> Area 15 Min Each Region Completed 08/05/2023 57560 Therapeutic Activities Direc t, Each 15 Minutes Completed 08/02/2023 62294 Therapeutic Activities Direc t, Each 15 Minutes Completed 08/02/2023 59859 [employer] Group Leader 1/> Area 15 Min Each Region Completed 08/02/2023 98630 Therapy Proc, Neuromuscular Reeducation Of Movement Completed 08/02/2023 61239 Therapy Proc 1/> Area 15Min Ea Completed 08/02/2023 13759 Hot/Cold Pack Completed 07/29/2023 44488 Hot/Cold Pack Completed 07/29/2023 28881 Therapy Proc 1/> Area 15Min Ea Completed 07/29/2023 44605 Therapy Proc, Neuromuscular Reeducation Of Movement Completed 07/29/2023 75377 Therapeutic Activities Direc t, Each 15 Minutes Completed 07/29/2023 28231 Manual [employer] Group Leader 1/> Area 15 Min Each Region Completed 07/22/2023 62903 Therapeutic Activities Direc t, Each 15 Minutes Completed 07/22/2023 95187 [employer] Group Leader 1/> Area 15 Min Each Region Completed 07/22/2023 84448 Therapy Proc, Neuromuscular Reeducation Of Movement Completed 07/22/2023 94134 Therapy Proc 1/> Area 15Min Ea Completed 07/22/2023 52575 Hot/Cold Pack Completed 07/19/2023 97353 Therapy Proc, Neuromuscular Reeducation Of Movement Completed 07/19/2023 02783 Hot/Cold Pack Completed 07/19/2023 11180 Therapy Proc 1/> Area 15Min Ea Completed 07/19/2023 75589 [employer] Group Leader 1/> Area 15 Min Each Region Completed 07/19/2023 24397 Therapeutic Activities Direc t, Each 15 Minutes Completed 07/15/2023 49699 Therapeutic Activities Direc t, Each 15 Minutes Completed 07/15/2023 17342 [employer] Group Leader 1/> Area 15 Min Each Region Completed 07/15/2023 20835 Therapy Proc, Neuromuscular Reeducation Of Movement Completed 07/15/2023 00705 Hot/Cold Pack Completed 07/12/2023 49231 Therapeutic Activities Direc t, Each 15 Minutes Completed 07/12/2023 86034 Hot/Cold Pack Completed 07/12/2023 96876 Therapy Proc 1/> Area 15Min Ea Completed 07/12/2023 85105 Manual [employer] Group Leader 1/> Area 15 Min Each Region Completed 07/12/2023 99153 Therapy Proc, Neuromuscular Reeducation Of Movement Completed 07/10/2023 00420 Manual [employer] Group Leader 1/> Area 15 Min Each Region Completed 07/10/2023 82559 Therapy Proc, Neuromuscular Reeducation Of Movement Completed 07/10/2023 52346 Therapy Proc 1/> Area 15Min Ea Completed 07/10/2023 11971 Hot/Cold Pack Completed 07/10/2023 17336 Therapeutic Activities Direc t, Each 15 Minutes Completed 07/08/2023 76548 Hot/Cold Pack Completed 07/08/2023 98917 Therapy Proc 1/> Area 15Min Ea Completed 07/08/2023 82884 Therapy Proc, Neuromuscular Reeducation Of Movement Completed 07/08/2023 32890 Manual [employer] Group Leader 1/> Area 15 Min Each Region Completed 07/08/2023 38412 Therapeutic Activities Direc t, Each 15 Minutes Completed 07/05/2023 00239 Therapeutic Activities Direc t, Each 15 Minutes Completed 07/05/2023 29081 Manual [employer] Group Leader 1/> Area 15 Min Each Region Completed 07/05/2023 24290 Therapy Proc, Neuromuscular Reeducation Of Movement Completed 07/05/2023 04981 Therapy Proc 1/> Area 15Min Ea Completed 07/05/2023 73169 Hot/Cold Pack Completed 07/03/2023 11089 Therapeutic Activities Direc t, Each 15 Minutes Completed 07/03/2023 26678 Hot/Cold Pack Completed 07/03/2023 90585 Therapy Proc 1/> Area 15Min Ea Completed 07/03/2023 02344 Therapy Proc, Neuromuscular Reeducation Of Movement Completed 07/03/2023 40968 Manual [employer] Group Leader 1/> Area 15 Min Each Region Completed 07/01/2023 14318 Therapeutic Activities Direc t, Each 15 Minutes Completed 07/01/2023 95771 Manual [employer] Group Leader 1/> Area 15 Min Each Region Completed 07/01/2023 49171 Therapy Proc, Neuromuscular Reeducation Of Movement Completed 07/01/2023 69061 Therapy Proc 1/> Area 15Min Ea Completed 07/01/2023 99401 Hot/Cold Pack Completed 06/28/2023 79779 Therapeutic Activities Direc t, Each 15 Minutes Completed 06/28/2023 51545 Manual Manufacturing Group Leader 1/> Area 15 Min Each Region Completed 06/28/2023 01889 Therapy Proc, Neuromuscular Reeducation Of Movement Completed 06/28/2023 75801 Therapy Proc 1/> Area 15Min Ea Completed 06/24/2023 90601 Hot/Cold Pack Completed 06/24/2023 56346 Therapy Proc 1/> Area 15Min Ea Completed 06/24/2023 77464 Manual [employer] Group Leader 1/> Area 15 Min Each Region Completed 06/24/2023 77221 Therapeutic Activities Direc t, Each 15 Minutes Completed 06/24/2023 20781 Therapy Proc, Neuromuscular Reeducation Of Movement Completed 06/21/2023 89049 Therapeutic Activities Direc t, Each 15 Minutes Completed 06/21/2023 03170 [employer] Group Leader 1/> Area 15 Min Each Region Completed 06/21/2023 56452 Therapy Proc, Neuromuscular Reeducation Of Movement Completed 06/21/2023 71491 Therapy Proc 1/> Area 15Min Ea Completed 06/21/2023 74481 Hot/Cold Pack Completed 06/19/2023 55250 Therapeutic Activities Direc t, Each 15 Minutes Completed 06/19/2023 86216 Manual [employer] Group Leader 1/> Area 15 Min Each Region Completed 06/19/2023 87811 Therapy Proc, Neuromuscular Reeducation Of Movement Completed 06/19/2023 21033 Therapy Proc 1/> Area 15Min Ea Completed 06/19/2023 69769 Hot/Cold Pack Completed 06/17/2023 36831 Hot/Cold Pack Completed 06/17/2023 57602 Therapy Proc 1/> Area 15Min Ea Completed 06/17/2023 01340 Manual [employer] Group Leader 1/> Area 15 Min Each Region Completed 06/17/2023 29497 Therapeutic Activities Direc t, Each 15 Minutes Completed 06/17/2023 91586 Therapy Proc, Neuromuscular Reeducation Of Movement Completed 06/14/2023 40233 Therapeutic Activities Direc t, Each 15 Minutes Completed 06/14/2023 23282 Manual [employer] Group Leader 1/> Area 15 Min Each Region Completed 06/14/2023 03402 Therapy Proc, Neuromuscular Reeducation Of Movement Completed 06/14/2023 97755 Therapy Proc 1/> Area 15Min Ea Completed 06/14/2023 51733 Hot/Cold Pack Completed 06/12/2023 70988 Therapy Proc, Neuromuscular Reeducation Of Movement Completed 06/12/2023 45010 Hot/Cold Pack Completed 06/12/2023 50228 Therapy Proc 1/> Area 15Min Ea Completed 06/12/2023 93908 Manual [employer] Group Leader 1/> Area 15 Min Each Region Completed 06/12/2023 97033 Therapeutic Activities Direc t, Each 15 Minutes Completed 06/07/2023 87641 Therapeutic Activities Direc t, Each 15 Minutes Completed 06/07/2023 53936 Manual [employer] Group Leader 1/> Area 15 Min Each Region Completed 06/07/2023 54674 Therapy Proc, Neuromuscular Reeducation Of Movement Completed 06/07/2023 07262 Therapy Proc 1/> Area 15Min Ea Completed 06/05/2023 00527 Therapeutic Activities Direc t, Each 15 Minutes Completed 06/05/2023 34244 Hot/Cold Pack Completed 06/05/2023 72803 Therapy Proc 1/> Area 15Min Ea Completed 06/05/2023 71547 Manual Manufacturing Group Leader 1/> Area 15 Min Each Region Completed 06/05/2023 54655 Therapy Proc, Neuromuscular Reeducation Of Movement Completed 06/03/2023 75426 Manual Manufacturing Group Leader 1/> Area 15 Min Each Region Completed 06/03/2023 00112 Therapy Proc, Neuromuscular Reeducation Of Movement Completed 06/03/2023 92971 Therapy Proc 1/> Area 15Min Ea Completed 06/03/2023 85545 Hot/Cold Pack Completed 06/03/2023 75074 Therapeutic Activities Direc t, Each 15 Minutes Completed 05/31/2023 55150 Hot/Cold Pack Completed 05/31/2023 62820 Therapy Proc, Neuromuscular Reeducation Of Movement Completed 05/31/2023 25844 Manual Manufacturing Group Leader 1/> Area 15 Min Each Region Completed 05/31/2023 16896 Therapeutic Activities Direc t, Each 15 Minutes Completed 05/29/2023 48162 Therapeutic Activities Direc t, Each 15 Minutes Completed 05/29/2023 13323 Therapeutic Procedure Group Completed 05/29/2023 26557 Manual Manufacturing Group Leader 1/> Area 15 Min Each Region Completed 05/29/2023 62476 Therapy Proc, Neuromuscular Reeducation Of Movement Completed 05/29/2023 68925 Hot/Cold Pack Completed 05/27/2023 87986 Therapeutic Procedure Group Completed 05/27/2023 44357 Hot/Cold Pack Completed 05/27/2023 96751 Therapy Proc, Neuromuscular Reeducation Of Movement Completed 05/27/2023 81980 Manual Manufacturing Group Leader 1/> Area 15 Min Each Region Completed 05/27/2023 85289 Therapeutic Activities Direc t, Each 15 Minutes Completed 05/24/2023 83042 Therapeutic Activities Direc t, Each 15 Minutes Completed 05/24/2023 29826 Manual Manufacturing Group Leader 1/> Area 15 Min Each Region Completed 05/24/2023 59842 Therapy Proc, Neuromuscular Reeducation Of Movement Completed 05/24/2023 40184 Therapy Proc 1/> Area 15Min Ea Completed 05/24/2023 47549 Hot/Cold Pack Completed 05/22/2023 27079 Therapeutic Activities Direc t, Each 15 Minutes Completed 05/22/2023 70369 Manual [employer] Group Leader 1/> Area 15 Min Each Region Completed 05/22/2023 71620 Therapy Proc, Neuromuscular Reeducation Of Movement Completed 05/22/2023 81065 Therapy Proc 1/> Area 15Min Ea Completed 05/22/2023 05486 Hot/Cold Pack Completed 05/20/2023 99796 Hot/Cold Pack Completed 05/20/2023 96012 Therapy Proc 1/> Area 15Min Ea Completed 05/20/2023 55095 Manual Manufacturing Group Leader 1/> Area 15 Min Each Region Completed 05/20/2023 34114 Therapeutic Activities Direc t, Each 15 Minutes Completed 05/20/2023 16576 Therapy Proc, Neuromuscular Reeducation Of Movement Completed 05/17/2023 93845 Therapeutic Activities Direc t, Each 15 Minutes Completed 05/17/2023 82857 Manual [employer] Group Leader 1/> Area 15 Min Each Region Completed 05/17/2023 20169 Therapy Proc, Neuromuscular Reeducation Of Movement Completed 05/17/2023 04380 Therapy Proc 1/> Area 15Min Ea Completed 05/17/2023 72000 Hot/Cold Pack Completed 05/15/2023 43799 Therapeutic Activities Direc t, Each 15 Minutes Completed 05/15/2023 52815 Manual [employer] Group Leader 1/> Area 15 Min Each Region Completed 05/15/2023 63681 Therapy Proc, Neuromuscular Reeducation Of Movement Completed 05/15/2023 47766 Therapy Proc 1/> Area 15Min Ea Completed 05/15/2023 66686 Hot/Cold Pack Completed 2023 33937 Hot/Cold Pack Completed 2023 15632 Therapy Proc 1/> Area 15Min Ea Completed 2023 04508 [employer] Group Leader 1/> Area 15 Min Each Region Completed 2023 63822 Therapeutic Activities Direc t, Each 15 Minutes Completed 2023 63626 Therapy Proc, Neuromuscular Reeducation Of Movement Completed 05/10/2023 31255 Therapeutic Activities Direc t, Each 15 Minutes Completed 05/10/2023 45583 Manual [employer] Group Leader 1/> Area 15 Min Each Region Completed 05/10/2023 67524 Therapy Proc, Neuromuscular Reeducation Of Movement Completed 05/10/2023 29308 Therapy Proc 1/> Area 15Min Ea Completed 05/10/2023 83874 Hot/Cold Pack Completed 05/08/2023 46041 Therapy Proc, Neuromuscular Reeducation Of Movement Completed 05/08/2023 59660 Hot/Cold Pack Completed 05/08/2023 26227 Therapy Proc 1/> Area 15Min Ea Completed 05/08/2023 36956 Manual Manufacturing Group Leader 1/> Area 15 Min Each Region Completed 05/08/2023 24105 Therapeutic Activities Direc t, Each 15 Minutes Completed 05/06/2023 81675 Therapeutic Activities Direc t, Each 15 Minutes Completed 05/06/2023 56367 Manual [employer] Group Leader 1/> Area 15 Min Each Region Completed 05/06/2023 40103 Therapy Proc, Neuromuscular Reeducation Of Movement Completed 05/06/2023 83703 Therapy Proc 1/> Area 15Min Ea Completed 05/06/2023 01971 Hot/Cold Pack Completed 05/02/2023 89798 Therapy Proc 1/> Area 15Min Ea Completed 05/02/2023 27308 Manual Manufacturing Group Leader 1/> Area 15 Min Each Region Completed 05/02/2023 61995 Therapeutic Activities Direc t, Each 15 Minutes Completed 05/02/2023 91437 Therapy Proc, Neuromuscular Reeducation Of Movement Completed 04/30/2023 92794 Therapy Proc, Neuromuscular Reeducation Of Movement Completed 04/30/2023 30942 Therapy Proc 1/> Area 15Min Ea Completed 04/30/2023 33209 Hot/Cold Pack Completed 04/30/2023 36292 Manual Manufacturing Group Leader 1/> Area 15 Min Each Region Completed 04/24/2023 11402 Manual Manufacturing Group Leader 1/> Area 15 Min Each Region Completed 04/24/2023 04945 Therapy Proc, Neuromuscular Reeducation Of Movement Completed 04/24/2023 39469 Therapy Proc 1/> Area 15Min Ea Completed 04/22/2023 66408 Therapy Proc, Neuromuscular Reeducation Of Movement Completed 04/22/2023 54053 Hot/Cold Pack Completed 04/22/2023 46938 Therapy Proc 1/> Area 15Min Ea Completed 04/22/2023 76958 Manual Manufacturing Group Leader 1/> Area 15 Min Each Region Completed 04/19/2023 78637 Manual Manufacturing Group Leader 1/> Area 15 Min Each Region Completed 04/19/2023 07325 Therapy Proc, Neuromuscular Reeducation Of Movement Completed 04/19/2023 00138 Therapy Proc 1/> Area 15Min Ea Completed 04/19/2023 05460 Hot/Cold Pack Completed 04/18/2023 45362 Manual Manufacturing Group Leader 1/> Area 15 Min Each Region Completed 04/18/2023 02596 Therapy Proc 1/> Area 15Min Ea Completed 04/18/2023 08290 Therapy Proc, Neuromuscular Reeducation Of Movement Completed 04/15/2023 48648 Manual Manufacturing Group Leader 1/> Area 15 Min Each Region Completed 04/15/2023 47359 Therapy Proc, Neuromuscular Reeducation Of Movement Completed 04/15/2023 41307 Therapy Proc 1/> Area 15Min Ea Completed 04/15/2023 24820 Hot/Cold Pack Completed 04/12/2023 52578 Manual Manufacturing Group Leader 1/> Area 15 Min Each Region Completed 04/12/2023 72869 Therapy Proc, Neuromuscular Reeducation Of Movement Completed 04/12/2023 84959 Therapy Proc 1/> Area 15Min Ea Completed 04/12/2023 83393 Hot/Cold Pack Completed 04/10/2023 16229 Manual Manufacturing Group Leader 1/> Area 15 Min Each Region Completed 04/10/2023 46189 Therapy Proc, Neuromuscular Reeducation Of Movement Completed 04/10/2023 29903 Therapy Proc 1/> Area 15Min Ea Completed 04/08/2023 02403 Therapy Proc 1/> Area 15Min Ea Completed 04/08/2023 96264 Manual Manufacturing Group Leader 1/> Area 15 Min Each Region Completed 04/08/2023 09918 Therapy Proc, Neuromuscular Reeducation Of Movement Completed 04/05/2023 11909 Manual Manufacturing Group Leader 1/> Area 15 Min Each Region Completed 04/05/2023 11195 Therapy Proc, Neuromuscular Reeducation Of Movement Completed 04/05/2023 19374 Therapy Proc 1/> Area 15Min Ea Completed 04/03/2023 46777 Manual Manufacturing Group Leader 1/> Area 15 Min Each Region Completed 04/03/2023 92356 Therapy Proc, Neuromuscular Reeducation Of Movement Completed 04/03/2023 29641 Therapy Proc 1/> Area 15Min Ea Completed 04/01/2023 71875 Therapy Proc, Neuromuscular Reeducation Of Movement Completed 04/01/2023 35996 Therapy Proc 1/> Area 15Min Ea Completed 04/01/2023 98585 Manual Manufacturing Group Leader 1/> Area 15 Min Each Region Completed 03/29/2023 23061 Manual Manufacturing Group Leader 1/> Area 15 Min Each Region Completed 03/29/2023 22535 Therapy Proc, Neuromuscular Reeducation Of Movement Completed 03/29/2023 57839 Therapy Proc 1/> Area 15Min Ea Completed 03/27/2023 02785 Manual Manufacturing Group Leader 1/> Area 15 Min Each Region Completed 03/27/2023 05511 Therapy Proc, Neuromuscular Reeducation Of Movement Completed 03/27/2023 82945 Therapy Proc 1/> Area 15Min Ea Completed 03/25/2023 66203 Manual Manufacturing Group Leader 1/> Area 15 Min Each Region Completed 03/25/2023 68676 Therapy Proc 1/> Area 15Min Ea Completed 03/25/2023 40621 Therapy Proc, Neuromuscular Reeducation Of Movement Completed 03/22/2023 84341 Manual Manufacturing Group Leader 1/> Area 15 Min Each Region Completed 03/22/2023 30908 Therapy Proc, Neuromuscular Reeducation Of Movement Completed 03/22/2023 74527 Therapy Proc 1/> Area 15Min Ea Completed 03/20/2023 01291 Manual Manufacturing Group Leader 1/> Area 15 Min Each Region Completed 03/20/2023 40323 Therapy Proc, Neuromuscular Reeducation Of Movement Completed 03/20/2023 55305 Therapy Proc 1/> Area 15Min Ea Completed 03/18/2023 46008 Manual Manufacturing Group Leader 1/> Area 15 Min Each Region Completed 03/18/2023 26247 Therapy Proc, Neuromuscular Reeducation Of Movement Completed 03/18/2023 48785 Therapy Proc 1/> Area 15Min Ea Completed 03/15/2023 21793 Manual Manufacturing Group Leader 1/> Area 15 Min Each Region Completed 03/15/2023 38850 Therapy Proc, Neuromuscular Reeducation Of Movement Completed 03/15/2023 12694 Therapy Proc 1/> Area 15Min Ea Completed 03/13/2023 21761 Physical Therapy Evaluation Moderate Complexity Completed 03/13/2023 39548 Manual Manufacturing Group Leader 1/> Area 15 Min Each Region Completed 03/13/2023 15913 Therapy Proc 1/> Area 15Min Ea Completed Medical Devices Description No Information Available Encounters Type Date Location Provider Dx Diagnosis Office Visit 09/06/2023 10:30a [place] Dawson Almodovar, DO I10 Essential (pr imary) hypertension 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 F41.1 Generalized anxiety disorder R60.0 Localized edema Assessments Date Code Description Provider 09/06/2023 I10 Essential (primary) hyperten vickie Dawson [...] I10 Essential (primary) hyperten vickie [facility] - [place] 09/02/2023 R26.2 Difficulty in wa [place]king, not elsewhere classified Aki Garcia DPT 09/02/2023 M25.511 Pain in right shoulder Oziel Garcia, DPT 08/30/2023 R26.2 Difficulty in wa lking, not elsewhere classified Aki Garcia, GABRIELLET 08/30/2023 M25.511 Pain in right shoulder Oziel Garcia, DPT 08/27/2023 R26.2 Difficulty in wa [place]king, not elsewhere classified Aki Garcia DPT 08/27/2023 M25.511 Pain in right shoulder Oziel Garcia, DPT 08/23/2023 R26.2 Difficulty in wa lking, not elsewhere classified Aki Garcia DPT 08/23/2023 M25.511 Pain in right shoulder [...] lking, not elsewhere classified Aki Garcia, DPT 03/25/2023 M25.511 Pain in right shoulder Oziel Garcia, DPT 03/22/2023 R26.2 Difficulty in wa [place]king, not elsewhere classified Aki Garcia, DPT 03/22/2023 M25.511 Pain in right shoulder Oziel Garcia, DPT 03/20/2023 R26.2 Difficulty in wa [place]king, not elsewhere classified Aki Garcia, DPT 03/20/2023 M25.511 Pain in right shoulder Oziel Garcia, DPT 03/18/2023 R26.2 Difficulty in wa [place]king, not elsewhere classified Aki Garcia, DPT 03/18/2023 M25.511 Pain in right shoulder Oziel Garcia, DPT 03/15/2023 R26.2 Difficulty in wa lking, not elsewhere classified Aki Garcia, DPT 03/15/2023 M25.511 Pain in right shoulder Oziel Garcia, DPT 03/13/2023 R26.2 Difficulty in wa [place]king, not elsewhere classified Aki Garcia, DPT 03/13/2023 M25.511 Pain in right shoulder Oziel Garcia, DPT Plan of Treatment Future Appointment(s):* 03/13/2024 10:30 am - Dawson Almodovar DO at [place] * 03/06/2024 9:00 am - [facility] [place] [facility] [place] Functional Status Description No Information Available Mental Status Description No Information Available Referrals Description No Information Available
--- OUTSIDE RECORDS SUMMARY | 2023-10-11 13:13 | External Medical Summary | Continuity of Care Document ---
Author Name Unknown Organization [facility] Address [address], [place] [address] Phone [phone] Problems Active Problems Provider Date Essential hypertension [...] SIG Qnty Indications Order ing Provider Date Smedonebml21ga Tablets 2 tablets by mouth every day 30tabs R60.0 Dawson Almodovar DO 10/05/2022 Multi + Aurora-3 Adult GummiesChewtabs 1 by mouth every day Dawson Almodovar DO 08/08/2022 Vitamin B ComplexTablets 1 by mouth every day Dawson Almodovar DO 08/08/2022 Losartan Potassium/Hydrochlorothi [id number] Tablets 1 by mouth every day 90tabs I10 Dawson Almodovar DO 03/21/2020 Juice Plus Fibre` Dawson Almodovar DO 02/19/2018 Aspirin Adult Low Eebd00jb Tablets DR 1 by mouth every day Unknown Citalopram Sqkxtevryopw28cz Tablets 1 by mouth every day 90tabs F41.1 Dawson Almodovar, DO Vitamin D3 Maximum [id number] (5000 Ut) Capsules 1 by mouth once daily Unknown Immunizations CPT Code Status Date Vaccine Lot # 59979 Given 07/14/2009 Pneumococcal Vaccine/Pneu movax 23 88871 Refused 09/06/2023 Sarscov2 Vaccin e 50 mcg/0.5 ML For Im Use 12 Yrs And Older 85699 Refused 09/06/2023 Pneumococcal Conjugate-Pr evnar 20 92492 Refused 10/19/2022 Shingrix 34474 Refused 08/08/2022 Pneumococcal Conjugate-Pr evnar 20 36210 Refused 08/08/2022 Influenza Vac, Split, Preservative Free High Dose Age 65 & > 84669 Refused 04/20/2022 Moderna Sars-Co v-2 (Cov-19) vacc,100 mcg/ 0.5 mL 12Y+EMR Doc Only 79572 Refused 10/16/2021 Influenza Virus Vaccine, Quadrivalent (Cciiv4), Derived From Cell 23097 Refused 10/16/2021 Shingrix 80531 Refused 10/16/2021 Pneumococcal Conjugate-Pr evnar 13 69414 Refused 03/20/2021 Pfizer Sars-Cov -2 (Cov-19) vacc 30mcg/0.3ML 12Y+ EMR Doc Only 35665 Refused 04/17/2019 Influenza Vacci ne, Inactivated, Subunit, Adjuvanted, For [facility] [address] Refused 01/29/2019 Tdap (Tetanus, diphtheria & acel. pertussis) Adacel or Boostrix 20719 Refused 01/29/2019 Pneumococcal Conjugate-Pr evnar 13 Vital Signs Date Vital Result Comment 09/06/2023 10:35am BP Systolic 130 mmHg BP Diastolic 78 mmHg Body Temperature 98.2 F Heart Rate 76 /min Respiratory Rate 16 /min Weight 205.31 lb Weight 93.130 kg Height 62 inches 5'2" BMI (Body Mass Index) 37.5 kg/m2 [facility] Body Weight 110 lb 02/22/2023 10:40am BP Systolic 138 mmHg BP Diastolic 82 mmHg Body Temperature 98.2 F Heart Rate 84 /min Respiratory Rate 16 /min Weight 196.12 lb Weight 88.962 kg Results Test Acquired Date Facility Test Result H/L Range N ote BMP 09/05/2023 [facility] [address] [place] [address] [phone] Glucose 88 mg/dL 70-110 BUN 23 mg/dL 6-25 Creatinine 0.8 mg/dL 0.5-1.2 Sodium 138 mEq/L 135-145 Potassium 4.1 mEq/L 3.5-5.0 Chloride 100 mEq/L 95-107 Co-2 29 mEq/L 24-31 Calcium 9.4 mg/dL 8.5-10.6 GFR 72 ML/MIN/1.73SQM >60 Procedures Date Code Description Status 09/06/2023 1101F PT SCR Future Fall Risk, No Fall Or 1 W/Out Injury Completed 09/05/2023 24695 Venipuncture Routine Complet ed 09/02/2023 72240 Therapeutic Activities Direc t, Each 15 Minutes Completed 09/02/2023 47142 Manual Assistant Printer Floor Covering 1/> Area 15 Min Each Region Completed 09/02/2023 89548 Therapy Proc, Neuromuscular Reeducation Of Movement Completed 09/02/2023 02186 Therapy Proc 1/> Area 15Min Ea Completed 09/02/2023 81063 Hot/Cold Pack Completed 08/30/2023 71327 Therapy Proc 1/> Area 15Min Ea Completed 08/30/2023 80378 Hot/Cold Pack Completed 08/30/2023 28222 Therapy Proc, Neuromuscular Reeducation Of Movement Completed 08/30/2023 44889 Manual Assistant Printer Floor Covering 1/> Area 15 Min Each Region Completed 08/30/2023 75831 Therapeutic Activities Direc t, Each 15 Minutes Completed 08/27/2023 24557 Therapeutic Activities Direc t, Each 15 Minutes Completed 08/27/2023 65818 Manual Assistant Printer Floor Covering 1/> Area 15 Min Each Region Completed 08/27/2023 24714 Therapy Proc, Neuromuscular Reeducation Of Movement Completed 08/27/2023 79425 Therapy Proc 1/> Area 15Min Ea Completed 08/27/2023 37326 Hot/Cold Pack Completed 08/23/2023 69619 Therapeutic Activities Direc t, Each 15 Minutes Completed 08/23/2023 66052 Hot/Cold Pack Completed 08/23/2023 97137 Therapy Proc 1/> Area 15Min Ea Completed 08/23/2023 13964 Therapy Proc, Neuromuscular Reeducation Of Movement Completed 08/23/2023 74556 Manual Assistant Printer Floor Covering 1/> Area 15 Min Each Region Completed 08/20/2023 23184 Therapeutic Activities Direc t, Each 15 Minutes Completed 08/20/2023 57009 Manual Assistant Printer Floor Covering 1/> Area 15 Min Each Region Completed 08/20/2023 59807 Therapy Proc, Neuromuscular Reeducation Of Movement Completed 08/20/2023 46469 Therapy Proc 1/> Area 15Min Ea Completed 08/20/2023 19525 Hot/Cold Pack Completed 08/16/2023 27827 Therapeutic Activities Direc t, Each 15 Minutes Completed 08/16/2023 29046 Manual Assistant Printer Floor Covering 1/> Area 15 Min Each Region Completed 08/16/2023 54007 Therapy Proc, Neuromuscular Reeducation Of Movement Completed 08/16/2023 42378 Therapy Proc 1/> Area 15Min Ea Completed 08/16/2023 74357 Hot/Cold Pack Completed 08/12/2023 36326 Hot/Cold Pack Completed 08/12/2023 61396 Therapy Proc 1/> Area 15Min Ea Completed 08/12/2023 78681 Manual Assistant Printer Floor Covering 1/> Area 15 Min Each Region Completed 08/12/2023 20718 Therapy Proc, Neuromuscular Reeducation Of Movement Completed 08/12/2023 76400 Therapeutic Activities Direc t, Each 15 Minutes Completed 08/09/2023 63294 Therapeutic Activities Direc t, Each 15 Minutes Completed 08/09/2023 33666 Manual Assistant Printer Floor Covering 1/> Area 15 Min Each Region Completed 08/09/2023 05879 Therapy Proc, Neuromuscular Reeducation Of Movement Completed 08/09/2023 89176 Therapy Proc 1/> Area 15Min Ea Completed 08/09/2023 97471 Hot/Cold Pack Completed 08/05/2023 41343 Hot/Cold Pack Completed 08/05/2023 17849 Therapy Proc, Neuromuscular Reeducation Of Movement Completed 08/05/2023 64249 Manual Assistant Printer Floor Covering 1/> Area 15 Min Each Region Completed 08/05/2023 67389 Therapeutic Activities Direc t, Each 15 Minutes Completed 08/02/2023 98401 Therapeutic Activities Direc t, Each 15 Minutes Completed 08/02/2023 97215 Manual Assistant Printer Floor Covering 1/> Area 15 Min Each Region Completed 08/02/2023 79310 Therapy Proc, Neuromuscular Reeducation Of Movement Completed 08/02/2023 02652 Therapy Proc 1/> Area 15Min Ea Completed 08/02/2023 51849 Hot/Cold Pack Completed 07/29/2023 65871 Hot/Cold Pack Completed 07/29/2023 95129 Therapy Proc 1/> Area 15Min Ea Completed 07/29/2023 60371 Therapy Proc, Neuromuscular Reeducation Of Movement Completed 07/29/2023 67621 Therapeutic Activities Direc t, Each 15 Minutes Completed 07/29/2023 53025 Manual Assistant Printer Floor Covering 1/> Area 15 Min Each Region Completed 07/22/2023 38948 Therapeutic Activities Direc t, Each 15 Minutes Completed 07/22/2023 55515 Manual Assistant Printer Floor Covering 1/> Area 15 Min Each Region Completed 07/22/2023 57636 Therapy Proc, Neuromuscular Reeducation Of Movement Completed 07/22/2023 13667 Therapy Proc 1/> Area 15Min Ea Completed 07/22/2023 86237 Hot/Cold Pack Completed 07/19/2023 15733 Therapy Proc, Neuromuscular Reeducation Of Movement Completed 07/19/2023 62388 Hot/Cold Pack Completed 07/19/2023 68406 Therapy Proc 1/> Area 15Min Ea Completed 07/19/2023 06371 Manual Assistant Printer Floor Covering 1/> Area 15 Min Each Region Completed 07/19/2023 93379 Therapeutic Activities Direc t, Each 15 Minutes Completed 07/15/2023 23373 Therapeutic Activities Direc t, Each 15 Minutes Completed 07/15/2023 91711 Manual Assistant Printer Floor Covering 1/> Area 15 Min Each Region Completed 07/15/2023 87120 Therapy Proc, Neuromuscular Reeducation Of Movement Completed 07/15/2023 50499 Hot/Cold Pack Completed 07/12/2023 95699 Therapeutic Activities Direc t, Each 15 Minutes Completed 07/12/2023 97301 Hot/Cold Pack Completed 07/12/2023 50331 Therapy Proc 1/> Area 15Min Ea Completed 07/12/2023 92216 Manual Assistant Printer Floor Covering 1/> Area 15 Min Each Region Completed 07/12/2023 01326 Therapy Proc, Neuromuscular Reeducation Of Movement Completed 07/10/2023 28139 Manual Assistant Printer Floor Covering 1/> Area 15 Min Each Region Completed 07/10/2023 11088 Therapy Proc, Neuromuscular Reeducation Of Movement Completed 07/10/2023 47010 Therapy Proc 1/> Area 15Min Ea Completed 07/10/2023 81996 Hot/Cold Pack Completed 07/10/2023 63881 Therapeutic Activities Direc t, Each 15 Minutes Completed 07/08/2023 52703 Hot/Cold Pack Completed 07/08/2023 12138 Therapy Proc 1/> Area 15Min Ea Completed 07/08/2023 69897 Therapy Proc, Neuromuscular Reeducation Of Movement Completed 07/08/2023 99729 Manual Assistant Printer Floor Covering 1/> Area 15 Min Each Region Completed 07/08/2023 18345 Therapeutic Activities Direc t, Each 15 Minutes Completed 07/05/2023 51860 Therapeutic Activities Direc t, Each 15 Minutes Completed 07/05/2023 42438 Manual Assistant Printer Floor Covering 1/> Area 15 Min Each Region Completed 07/05/2023 05916 Therapy Proc, Neuromuscular Reeducation Of Movement Completed 07/05/2023 89271 Therapy Proc 1/> Area 15Min Ea Completed 07/05/2023 72711 Hot/Cold Pack Completed 07/03/2023 46155 Therapeutic Activities Direc t, Each 15 Minutes Completed 07/03/2023 24938 Hot/Cold Pack Completed 07/03/2023 76379 Therapy Proc 1/> Area 15Min Ea Completed 07/03/2023 67245 Therapy Proc, Neuromuscular Reeducation Of Movement Completed 07/03/2023 68511 Manual Assistant Printer Floor Covering 1/> Area 15 Min Each Region Completed 07/01/2023 06931 Therapeutic Activities Direc t, Each 15 Minutes Completed 07/01/2023 84831 Manual Assistant Printer Floor Covering 1/> Area 15 Min Each Region Completed 07/01/2023 92433 Therapy Proc, Neuromuscular Reeducation Of Movement Completed 07/01/2023 02781 Therapy Proc 1/> Area 15Min Ea Completed 07/01/2023 33287 Hot/Cold Pack Completed 06/28/2023 26168 Therapeutic Activities Direc t, Each 15 Minutes Completed 06/28/2023 91994 Manual Assistant Printer Floor Covering 1/> Area 15 Min Each Region Completed 06/28/2023 45941 Therapy Proc, Neuromuscular Reeducation Of Movement Completed 06/28/2023 51359 Therapy Proc 1/> Area 15Min Ea Completed 06/24/2023 23959 Hot/Cold Pack Completed 06/24/2023 77031 Therapy Proc 1/> Area 15Min Ea Completed 06/24/2023 08678 Manual Assistant Printer Floor Covering 1/> Area 15 Min Each Region Completed 06/24/2023 39927 Therapeutic Activities Direc t, Each 15 Minutes Completed 06/24/2023 18198 Therapy Proc, Neuromuscular Reeducation Of Movement Completed 06/21/2023 53927 Therapeutic Activities Direc t, Each 15 Minutes Completed 06/21/2023 48356 Manual Assistant Printer Floor Covering 1/> Area 15 Min Each Region Completed 06/21/2023 55474 Therapy Proc, Neuromuscular Reeducation Of Movement Completed 06/21/2023 28911 Therapy Proc 1/> Area 15Min Ea Completed 06/21/2023 62568 Hot/Cold Pack Completed 06/19/2023 08155 Therapeutic Activities Direc t, Each 15 Minutes Completed 06/19/2023 80588 Manual Assistant Printer Floor Covering 1/> Area 15 Min Each Region Completed 06/19/2023 07084 Therapy Proc, Neuromuscular Reeducation Of Movement Completed 06/19/2023 99211 Therapy Proc 1/> Area 15Min Ea Completed 06/19/2023 49177 Hot/Cold Pack Completed 06/17/2023 76937 Hot/Cold Pack Completed 06/17/2023 87364 Therapy Proc 1/> Area 15Min Ea Completed 06/17/2023 98696 Manual Assistant Printer Floor Covering 1/> Area 15 Min Each Region Completed 06/17/2023 42073 Therapeutic Activities Direc t, Each 15 Minutes Completed 06/17/2023 53341 Therapy Proc, Neuromuscular Reeducation Of Movement Completed 06/14/2023 93539 Therapeutic Activities Direc t, Each 15 Minutes Completed 06/14/2023 85122 Manual Assistant Printer Floor Covering 1/> Area 15 Min Each Region Completed 06/14/2023 27810 Therapy Proc, Neuromuscular Reeducation Of Movement Completed 06/14/2023 20709 Therapy Proc 1/> Area 15Min Ea Completed 06/14/2023 26449 Hot/Cold Pack Completed 06/12/2023 64539 Therapy Proc, Neuromuscular Reeducation Of Movement Completed 06/12/2023 96690 Hot/Cold Pack Completed 06/12/2023 95238 Therapy Proc 1/> Area 15Min Ea Completed 06/12/2023 48108 Manual Assistant Printer Floor Covering 1/> Area 15 Min Each Region Completed 06/12/2023 95994 Therapeutic Activities Direc t, Each 15 Minutes Completed 06/07/2023 27730 Therapeutic Activities Direc t, Each 15 Minutes Completed 06/07/2023 39341 Manual Assistant Printer Floor Covering 1/> Area 15 Min Each Region Completed 06/07/2023 04194 Therapy Proc, Neuromuscular Reeducation Of Movement Completed 06/07/2023 24317 Therapy Proc 1/> Area 15Min Ea Completed 06/05/2023 62522 Therapeutic Activities Direc t, Each 15 Minutes Completed 06/05/2023 31639 Hot/Cold Pack Completed 06/05/2023 10889 Therapy Proc 1/> Area 15Min Ea Completed 06/05/2023 54631 Manual Assistant Printer Floor Covering 1/> Area 15 Min Each Region Completed 06/05/2023 72262 Therapy Proc, Neuromuscular Reeducation Of Movement Completed 06/03/2023 58595 Manual Assistant Printer Floor Covering 1/> Area 15 Min Each Region Completed 06/03/2023 05172 Therapy Proc, Neuromuscular Reeducation Of Movement Completed 06/03/2023 06658 Therapy Proc 1/> Area 15Min Ea Completed 06/03/2023 43003 Hot/Cold Pack Completed 06/03/2023 72240 Therapeutic Activities Direc t, Each 15 Minutes Completed 05/31/2023 68338 Hot/Cold Pack Completed 05/31/2023 11761 Therapy Proc, Neuromuscular Reeducation Of Movement Completed 05/31/2023 14526 Manual Assistant Printer Floor Covering 1/> Area 15 Min Each Region Completed 05/31/2023 40030 Therapeutic Activities Direc t, Each 15 Minutes Completed 05/29/2023 40692 Therapeutic Activities Direc t, Each 15 Minutes Completed 05/29/2023 32791 Therapeutic Procedure Group Completed 05/29/2023 96770 Manual Assistant Printer Floor Covering 1/> Area 15 Min Each Region Completed 05/29/2023 13768 Therapy Proc, Neuromuscular Reeducation Of Movement Completed 05/29/2023 92434 Hot/Cold Pack Completed 05/27/2023 17442 Therapeutic Procedure Group Completed 05/27/2023 02710 Hot/Cold Pack Completed 05/27/2023 91784 Therapy Proc, Neuromuscular Reeducation Of Movement Completed 05/27/2023 04786 Manual Assistant Printer Floor Covering 1/> Area 15 Min Each Region Completed 05/27/2023 02642 Therapeutic Activities Direc t, Each 15 Minutes Completed 05/24/2023 86931 Therapeutic Activities Direc t, Each 15 Minutes Completed 05/24/2023 26404 Manual Assistant Printer Floor Covering 1/> Area 15 Min Each Region Completed 05/24/2023 12415 Therapy Proc, Neuromuscular Reeducation Of Movement Completed 05/24/2023 89846 Therapy Proc 1/> Area 15Min Ea Completed 05/24/2023 46276 Hot/Cold Pack Completed 05/22/2023 68070 Therapeutic Activities Direc t, Each 15 Minutes Completed 05/22/2023 56457 Manual Assistant Printer Floor Covering 1/> Area 15 Min Each Region Completed 05/22/2023 27303 Therapy Proc, Neuromuscular Reeducation Of Movement Completed 05/22/2023 14403 Therapy Proc 1/> Area 15Min Ea Completed 05/22/2023 99588 Hot/Cold Pack Completed 05/20/2023 76987 Hot/Cold Pack Completed 05/20/2023 64742 Therapy Proc 1/> Area 15Min Ea Completed 05/20/2023 67322 Manual Assistant Printer Floor Covering 1/> Area 15 Min Each Region Completed 05/20/2023 67310 Therapeutic Activities Direc t, Each 15 Minutes Completed 05/20/2023 43289 Therapy Proc, Neuromuscular Reeducation Of Movement Completed 05/17/2023 18334 Therapeutic Activities Direc t, Each 15 Minutes Completed 05/17/2023 79417 Manual Assistant Printer Floor Covering 1/> Area 15 Min Each Region Completed 05/17/2023 03987 Therapy Proc, Neuromuscular Reeducation Of Movement Completed 05/17/2023 45356 Therapy Proc 1/> Area 15Min Ea Completed 05/17/2023 55707 Hot/Cold Pack Completed 05/15/2023 24275 Therapeutic Activities Direc t, Each 15 Minutes Completed 05/15/2023 86483 Manual Assistant Printer Floor Covering 1/> Area 15 Min Each Region Completed 05/15/2023 62298 Therapy Proc, Neuromuscular Reeducation Of Movement Completed 05/15/2023 74356 Therapy Proc 1/> Area 15Min Ea Completed 05/15/2023 88620 Hot/Cold Pack Completed 2023 77335 Hot/Cold Pack Completed 2023 90944 Therapy Proc 1/> Area 15Min Ea Completed 2023 33083 Manual Assistant Printer Floor Covering 1/> Area 15 Min Each Region Completed 2023 31637 Therapeutic Activities Direc t, Each 15 Minutes Completed 2023 47391 Therapy Proc, Neuromuscular Reeducation Of Movement Completed 05/10/2023 61457 Therapeutic Activities Direc t, Each 15 Minutes Completed 05/10/2023 60327 Manual Assistant Printer Floor Covering 1/> Area 15 Min Each Region Completed 05/10/2023 61819 Therapy Proc, Neuromuscular Reeducation Of Movement Completed 05/10/2023 84605 Therapy Proc 1/> Area 15Min Ea Completed 05/10/2023 72552 Hot/Cold Pack Completed 05/08/2023 71074 Therapy Proc, Neuromuscular Reeducation Of Movement Completed 05/08/2023 67231 Hot/Cold Pack Completed 05/08/2023 62351 Therapy Proc 1/> Area 15Min Ea Completed 05/08/2023 01418 Manual Assistant Printer Floor Covering 1/> Area 15 Min Each Region Completed 05/08/2023 95972 Therapeutic Activities Direc t, Each 15 Minutes Completed 05/06/2023 19241 Therapeutic Activities Direc t, Each 15 Minutes Completed 05/06/2023 31617 Manual Assistant Printer Floor Covering 1/> Area 15 Min Each Region Completed 05/06/2023 21974 Therapy Proc, Neuromuscular Reeducation Of Movement Completed 05/06/2023 23763 Therapy Proc 1/> Area 15Min Ea Completed 05/06/2023 08466 Hot/Cold Pack Completed 05/02/2023 57954 Therapy Proc 1/> Area 15Min Ea Completed 05/02/2023 61261 Manual Assistant Printer Floor Covering 1/> Area 15 Min Each Region Completed 05/02/2023 25765 Therapeutic Activities Direc t, Each 15 Minutes Completed 05/02/2023 40902 Therapy Proc, Neuromuscular Reeducation Of Movement Completed 04/30/2023 58654 Therapy Proc, Neuromuscular Reeducation Of Movement Completed 04/30/2023 63910 Therapy Proc 1/> Area 15Min Ea Completed 04/30/2023 76553 Hot/Cold Pack Completed 04/30/2023 81428 Manual Assistant Printer Floor Covering 1/> Area 15 Min Each Region Completed 04/24/2023 92581 Manual Assistant Printer Floor Covering 1/> Area 15 Min Each Region Completed 04/24/2023 73962 Therapy Proc, Neuromuscular Reeducation Of Movement Completed 04/24/2023 01188 Therapy Proc 1/> Area 15Min Ea Completed 04/22/2023 62013 Therapy Proc, Neuromuscular Reeducation Of Movement Completed 04/22/2023 74974 Hot/Cold Pack Completed 04/22/2023 81784 Therapy Proc 1/> Area 15Min Ea Completed 04/22/2023 82832 Manual Assistant Printer Floor Covering 1/> Area 15 Min Each Region Completed 04/19/2023 98271 Manual Assistant Printer Floor Covering 1/> Area 15 Min Each Region Completed 04/19/2023 76010 Therapy Proc, Neuromuscular Reeducation Of Movement Completed 04/19/2023 66317 Therapy Proc 1/> Area 15Min Ea Completed 04/19/2023 81573 Hot/Cold Pack Completed 04/18/2023 81253 Manual Assistant Printer Floor Covering 1/> Area 15 Min Each Region Completed 04/18/2023 49792 Therapy Proc 1/> Area 15Min Ea Completed 04/18/2023 61736 Therapy Proc, Neuromuscular Reeducation Of Movement Completed 04/15/2023 05533 Manual Assistant Printer Floor Covering 1/> Area 15 Min Each Region Completed 04/15/2023 65047 Therapy Proc, Neuromuscular Reeducation Of Movement Completed 04/15/2023 71603 Therapy Proc 1/> Area 15Min Ea Completed 04/15/2023 47396 Hot/Cold Pack Completed 04/12/2023 71347 Manual Assistant Printer Floor Covering 1/> Area 15 Min Each Region Completed 04/12/2023 20665 Therapy Proc, Neuromuscular Reeducation Of Movement Completed 04/12/2023 22874 Therapy Proc 1/> Area 15Min Ea Completed 04/12/2023 73545 Hot/Cold Pack Completed 04/10/2023 83332 Manual Assistant Printer Floor Covering 1/> Area 15 Min Each Region Completed 04/10/2023 80648 Therapy Proc, Neuromuscular Reeducation Of Movement Completed 04/10/2023 49006 Therapy Proc 1/> Area 15Min Ea Completed 04/08/2023 03970 Therapy Proc 1/> Area 15Min Ea Completed 04/08/2023 92492 Manual Assistant Printer Floor Covering 1/> Area 15 Min Each Region Completed 04/08/2023 60883 Therapy Proc, Neuromuscular Reeducation Of Movement Completed 04/05/2023 77122 Manual Assistant Printer Floor Covering 1/> Area 15 Min Each Region Completed 04/05/2023 27333 Therapy Proc, Neuromuscular Reeducation Of Movement Completed 04/05/2023 02473 Therapy Proc 1/> Area 15Min Ea Completed 04/03/2023 41861 Manual Assistant Printer Floor Covering 1/> Area 15 Min Each Region Completed 04/03/2023 93259 Therapy Proc, Neuromuscular Reeducation Of Movement Completed 04/03/2023 41826 Therapy Proc 1/> Area 15Min Ea Completed 04/01/2023 23401 Therapy Proc, Neuromuscular Reeducation Of Movement Completed 04/01/2023 04213 Therapy Proc 1/> Area 15Min Ea Completed 04/01/2023 78849 Manual Assistant Printer Floor Covering 1/> Area 15 Min Each Region Completed 03/29/2023 66553 Manual Assistant Printer Floor Covering 1/> Area 15 Min Each Region Completed 03/29/2023 02980 Therapy Proc, Neuromuscular Reeducation Of Movement Completed 03/29/2023 11674 Therapy Proc 1/> Area 15Min Ea Completed 03/27/2023 72583 Manual Assistant Printer Floor Covering 1/> Area 15 Min Each Region Completed 03/27/2023 49395 Therapy Proc, Neuromuscular Reeducation Of Movement Completed 03/27/2023 46874 Therapy Proc 1/> Area 15Min Ea Completed 03/25/2023 35885 Manual Assistant Printer Floor Covering 1/> Area 15 Min Each Region Completed 03/25/2023 78947 Therapy Proc 1/> Area 15Min Ea Completed 03/25/2023 38431 Therapy Proc, Neuromuscular Reeducation Of Movement Completed 03/22/2023 68780 Manual Assistant Printer Floor Covering 1/> Area 15 Min Each Region Completed 03/22/2023 00187 Therapy Proc, Neuromuscular Reeducation Of Movement Completed 03/22/2023 79659 Therapy Proc 1/> Area 15Min Ea Completed 03/20/2023 89763 Manual Assistant Printer Floor Covering 1/> Area 15 Min Each Region Completed 03/20/2023 90986 Therapy Proc, Neuromuscular Reeducation Of Movement Completed 03/20/2023 71956 Therapy Proc 1/> Area 15Min Ea Completed 03/18/2023 88963 Manual Assistant Printer Floor Covering 1/> Area 15 Min Each Region Completed 03/18/2023 15858 Therapy Proc, Neuromuscular Reeducation Of Movement Completed 03/18/2023 41652 Therapy Proc 1/> Area 15Min Ea Completed 03/15/2023 91897 Manual Assistant Printer Floor Covering 1/> Area 15 Min Each Region Completed 03/15/2023 99179 Therapy Proc, Neuromuscular Reeducation Of Movement Completed 03/15/2023 72419 Therapy Proc 1/> Area 15Min Ea Completed 03/13/2023 20656 Physical Therapy Evaluation Moderate Complexity Completed 03/13/2023 01697 Manual Assistant Printer Floor Covering 1/> Area 15 Min Each Region Completed 03/13/2023 95630 Therapy Proc 1/> Area 15Min Ea Completed Medical Devices Description No Information Available Encounters Type Date Location Provider Dx Diagnosis Office Visit 09/06/2023 10:30a [facility] Dawson Almodovar, DO I10 Essential (pr imary) [...] I10 Essential (primary) hyperten [facility] - [facility] 09/02/2023 R26.2 Difficulty in wa lking, not [...] DPT 05/06/2023 M25.511 Pain in right shoulder Ozeil Garcia, DPT 05/02/2023 R26.2 Difficulty in wa [...] 04/22/2023 M25.511 Pain in right shoulder Oziel jeremy Garcia, DPT 04/19/2023 R26.2 Difficulty in wa [...] 10:30 am - Dawson Almodovar DO at [facility] * 03/06/2024 9:00 am - [facility] Functional Status Description No Information Available Mental Status Description No Information Available Referrals Description No Information Available
--- OUTSIDE RECORDS SUMMARY | 2023-10-11 13:13 | External Medical Summary | Continuity of Care Document ---
Author Name Unknown Organization [facility] Address [address] [place] [address] Phone [phone] Problems Active Problems Provider Date Essential hypertension [...] SIG Qnty Indications Order ing Provider Date Sirjtcvnud85zp Tablets 2 tablets by mouth every day 30tabs R60.0 Dawson Almodovar DO 10/05/2022 Multi + [place]-3 Adult GummiesChewtabs 1 by mouth every day Dawson Almodovar DO 08/08/2022 Vitamin B ComplexTablets 1 by mouth every day Dawson Almodovar DO 08/08/2022 Losartan Potassium/Hydrochlorothi -66za Tablets 1 by mouth every day 90tabs I10 Dawson Almodovar DO 03/21/2020 Juice Plus Fibre` Dawson Almodovar DO 02/19/2018 Aspirin Adult Low Tmsy56do Tablets DR 1 by mouth every day Unknown Citalopram Dyejaffjbfho81gm Tablets 1 by mouth every day 90tabs F41.1 Dawson Almodovar, DO Vitamin D3 Maximum Eyirmklo591his (5000 Ut) Capsules 1 by mouth once daily Unknown Immunizations CPT Code Status Date Vaccine Lot # 90349 Given 07/14/2009 Pneumococcal Vaccine/Pneu movax 23 [id number] Refused 09/06/2023 Sarscov2 Vaccin e 50 mcg/0.5 ML For Im Use 12 Yrs And Older 11193 Refused 09/06/2023 Pneumococcal Conjugate-Pr evnar 20 68669 Refused 10/19/2022 Shingrix 96382 Refused 08/08/2022 Pneumococcal Conjugate-Pr evnar 20 26551 Refused 08/08/2022 Influenza Vac, Split, Preservative Free High Dose Age 65 & > 38136 Refused 04/20/2022 Moderna Sars-Co v-2 (Cov-19) vacc,100 mcg/ 0.5 mL 12Y+EMR Doc Only 24982 Refused 10/16/2021 Influenza Virus Vaccine, Quadrivalent (Cciiv4), Derived From Cell 39362 Refused 10/16/2021 Shingrix 62327 Refused 10/16/2021 Pneumococcal Conjugate-Pr evnar 13 35920 Refused 03/20/2021 Pfizer Sars-Cov -2 (Cov-19) vacc 30mcg/0.3ML 12Y+ EMR Doc Only 56780 Refused 04/17/2019 Influenza Vacci ne, Inactivated, Subunit, Adjuvanted, For Intrmus 49828 Refused 01/29/2019 Tdap (Tetanus, diphtheria & acel. pertussis) Adacel or Boostrix 26341 Refused 01/29/2019 Pneumococcal Conjugate-Pr evnar 13 Vital Signs Date Vital Result Comment 09/06/2023 10:35am BP Systolic 130 mmHg BP Diastolic 78 mmHg Body Temperature 98.2 F Heart Rate 76 /min Respiratory Rate 16 /min Weight 205.31 lb Weight 93.130 kg Height 62 inches 5'2" BMI (Body Mass Index) 37.5 kg/m2 [place] Body Weight 110 lb 02/22/2023 10:40am BP Systolic 138 mmHg BP Diastolic 82 mmHg Body Temperature 98.2 F Heart Rate 84 /min Respiratory Rate 16 /min Weight 196.12 lb Weight 88.962 kg Results Test Acquired Date Facility Test Result H/L Range N ote BMP 09/05/2023 [facility] [address] [place], [place] [id number] [phone] Glucose 88 mg/dL 70-110 BUN 23 mg/dL 6-25 Creatinine 0.8 mg/dL 0.5-1.2 Sodium 138 mEq/L 135-145 Potassium 4.1 mEq/L 3.5-5.0 Chloride 100 mEq/L 95-107 Co-2 29 mEq/L 24-31 Calcium 9.4 mg/dL 8.5-10.6 GFR 72 ML/MIN/1.73SQM >60 Procedures Date Code Description Status 09/09/2023 11558 Manual Wallpaper Cleaner 1/> Area 15 Min Each Region Completed 09/09/2023 34043 Therapeutic Activities Direc t, Each 15 Minutes Completed 09/09/2023 68256 Hot/Cold Pack Completed 09/09/2023 14785 Therapy Proc, Neuromuscular Reeducation Of Movement Completed 09/09/2023 06664 Therapy Proc 1/> Area 15Min Ea Completed 09/06/2023 1101F PT SCR Future Fall Risk, No Fall Or 1 W/Out Injury Completed 09/05/2023 46963 Venipuncture Routine Complet ed 09/02/2023 24633 Therapeutic Activities Direc t, Each 15 Minutes Completed 09/02/2023 53227 Manual Wallpaper Cleaner 1/> Area 15 Min Each Region Completed 09/02/2023 98960 Therapy Proc, Neuromuscular Reeducation Of Movement Completed 09/02/2023 94469 Therapy Proc 1/> Area 15Min Ea Completed 09/02/2023 17087 Hot/Cold Pack Completed 08/30/2023 33969 Therapeutic Activities Direc t, Each 15 Minutes Completed 08/30/2023 80589 Manual Wallpaper Cleaner 1/> Area 15 Min Each Region Completed 08/30/2023 99683 Therapy Proc, Neuromuscular Reeducation Of Movement Completed 08/30/2023 25108 Therapy Proc 1/> Area 15Min Ea Completed 08/30/2023 21199 Hot/Cold Pack Completed 08/27/2023 19696 Therapy Proc, Neuromuscular Reeducation Of Movement Completed 08/27/2023 40470 Hot/Cold Pack Completed 08/27/2023 94370 Therapy Proc 1/> Area 15Min Ea Completed 08/27/2023 83276 Manual Wallpaper Cleaner 1/> Area 15 Min Each Region Completed 08/27/2023 11657 Therapeutic Activities Direc t, Each 15 Minutes Completed 08/23/2023 46625 Therapeutic Activities Direc t, Each 15 Minutes Completed 08/23/2023 72476 Manual Wallpaper Cleaner 1/> Area 15 Min Each Region Completed 08/23/2023 24146 Therapy Proc, Neuromuscular Reeducation Of Movement Completed 08/23/2023 37848 Therapy Proc 1/> Area 15Min Ea Completed 08/23/2023 72457 Hot/Cold Pack Completed 08/20/2023 47551 Therapeutic Activities Direc t, Each 15 Minutes Completed 08/20/2023 20110 Manual Wallpaper Cleaner 1/> Area 15 Min Each Region Completed 08/20/2023 78063 Therapy Proc, Neuromuscular Reeducation Of Movement Completed 08/20/2023 76899 Therapy Proc 1/> Area 15Min Ea Completed 08/20/2023 13069 Hot/Cold Pack Completed 08/16/2023 66779 Hot/Cold Pack Completed 08/16/2023 58195 Therapy Proc 1/> Area 15Min Ea Completed 08/16/2023 55990 Manual Wallpaper Cleaner 1/> Area 15 Min Each Region Completed 08/16/2023 31957 Therapeutic Activities Direc t, Each 15 Minutes Completed 08/16/2023 55110 Therapy Proc, Neuromuscular Reeducation Of Movement Completed 08/12/2023 50751 Therapeutic Activities Direc t, Each 15 Minutes Completed 08/12/2023 94248 Manual Wallpaper Cleaner 1/> Area 15 Min Each Region Completed 08/12/2023 03052 Therapy Proc, Neuromuscular Reeducation Of Movement Completed 08/12/2023 18580 Therapy Proc 1/> Area 15Min Ea Completed 08/12/2023 02603 Hot/Cold Pack Completed 08/09/2023 84288 Therapy Proc, Neuromuscular Reeducation Of Movement Completed 08/09/2023 88694 Hot/Cold Pack Completed 08/09/2023 72388 Therapy Proc 1/> Area 15Min Ea Completed 08/09/2023 83312 Manual Wallpaper Cleaner 1/> Area 15 Min Each Region Completed 08/09/2023 33852 Therapeutic Activities Direc t, Each 15 Minutes Completed 08/05/2023 34247 Therapeutic Activities Direc t, Each 15 Minutes Completed 08/05/2023 95845 Manual Wallpaper Cleaner 1/> Area 15 Min Each Region Completed 08/05/2023 71045 Therapy Proc, Neuromuscular Reeducation Of Movement Completed 08/05/2023 01786 Hot/Cold Pack Completed 08/02/2023 34188 Therapeutic Activities Direc t, Each 15 Minutes Completed 08/02/2023 90777 Hot/Cold Pack Completed 08/02/2023 90407 Therapy Proc 1/> Area 15Min Ea Completed 08/02/2023 72691 Therapy Proc, Neuromuscular Reeducation Of Movement Completed 08/02/2023 96510 Manual Wallpaper Cleaner 1/> Area 15 Min Each Region Completed 07/29/2023 02646 Therapeutic Activities Direc t, Each 15 Minutes Completed 07/29/2023 44029 Manual Wallpaper Cleaner 1/> Area 15 Min Each Region Completed 07/29/2023 49693 Therapy Proc, Neuromuscular Reeducation Of Movement Completed 07/29/2023 48776 Therapy Proc 1/> Area 15Min Ea Completed 07/29/2023 41631 Hot/Cold Pack Completed 07/22/2023 64391 Therapeutic Activities Direc t, Each 15 Minutes Completed 07/22/2023 99533 Manual Wallpaper Cleaner 1/> Area 15 Min Each Region Completed 07/22/2023 01267 Therapy Proc, Neuromuscular Reeducation Of Movement Completed 07/22/2023 29512 Therapy Proc 1/> Area 15Min Ea Completed 07/22/2023 43649 Hot/Cold Pack Completed 07/19/2023 11358 Hot/Cold Pack Completed 07/19/2023 60080 Therapy Proc 1/> Area 15Min Ea Completed 07/19/2023 00114 Manual Wallpaper Cleaner 1/> Area 15 Min Each Region Completed 07/19/2023 81399 Therapy Proc, Neuromuscular Reeducation Of Movement Completed 07/19/2023 66306 Therapeutic Activities Direc t, Each 15 Minutes Completed 07/15/2023 05986 Therapeutic Activities Direc t, Each 15 Minutes Completed 07/15/2023 21304 Manual Wallpaper Cleaner 1/> Area 15 Min Each Region Completed 07/15/2023 55181 Therapy Proc, Neuromuscular Reeducation Of Movement Completed 07/15/2023 32711 Hot/Cold Pack Completed 07/12/2023 17519 Hot/Cold Pack Completed 07/12/2023 39831 Therapy Proc 1/> Area 15Min Ea Completed 07/12/2023 06819 Therapy Proc, Neuromuscular Reeducation Of Movement Completed 07/12/2023 05084 Manual Wallpaper Cleaner 1/> Area 15 Min Each Region Completed 07/12/2023 68213 Therapeutic Activities Direc t, Each 15 Minutes Completed 07/10/2023 18611 Therapeutic Activities Direc t, Each 15 Minutes Completed 07/10/2023 44710 Manual Wallpaper Cleaner 1/> Area 15 Min Each Region Completed 07/10/2023 11910 Therapy Proc, Neuromuscular Reeducation Of Movement Completed 07/10/2023 76949 Therapy Proc 1/> Area 15Min Ea Completed 07/10/2023 83880 Hot/Cold Pack Completed 07/08/2023 56490 Manual Wallpaper Cleaner 1/> Area 15 Min Each Region Completed 07/08/2023 28866 Hot/Cold Pack Completed 07/08/2023 43552 Therapy Proc 1/> Area 15Min Ea Completed 07/08/2023 34232 Therapy Proc, Neuromuscular Reeducation Of Movement Completed 07/08/2023 84091 Therapeutic Activities Direc t, Each 15 Minutes Completed 07/05/2023 85480 Therapeutic Activities Direc t, Each 15 Minutes Completed 07/05/2023 01031 Manual Wallpaper Cleaner 1/> Area 15 Min Each Region Completed 07/05/2023 80454 Therapy Proc, Neuromuscular Reeducation Of Movement Completed 07/05/2023 21481 Therapy Proc 1/> Area 15Min Ea Completed 07/05/2023 89345 Hot/Cold Pack Completed 07/03/2023 84478 Therapeutic Activities Direc t, Each 15 Minutes Completed 07/03/2023 50514 Manual Wallpaper Cleaner 1/> Area 15 Min Each Region Completed 07/03/2023 41227 Therapy Proc, Neuromuscular Reeducation Of Movement Completed 07/03/2023 58582 Therapy Proc 1/> Area 15Min Ea Completed 07/03/2023 82442 Hot/Cold Pack Completed 07/01/2023 35985 Hot/Cold Pack Completed 07/01/2023 49523 Therapy Proc 1/> Area 15Min Ea Completed 07/01/2023 12068 Therapy Proc, Neuromuscular Reeducation Of Movement Completed 07/01/2023 94085 Therapeutic Activities Direc t, Each 15 Minutes Completed 07/01/2023 43135 Manual Wallpaper Cleaner 1/> Area 15 Min Each Region Completed 06/28/2023 42524 Therapeutic Activities Direc t, Each 15 Minutes Completed 06/28/2023 07439 Manual Wallpaper Cleaner 1/> Area 15 Min Each Region Completed 06/28/2023 10503 Therapy Proc, Neuromuscular Reeducation Of Movement Completed 06/28/2023 37998 Therapy Proc 1/> Area 15Min Ea Completed 06/24/2023 20241 Therapy Proc 1/> Area 15Min Ea Completed 06/24/2023 08390 Hot/Cold Pack Completed 06/24/2023 84494 Therapy Proc, Neuromuscular Reeducation Of Movement Completed 06/24/2023 40934 Manual Wallpaper Cleaner 1/> Area 15 Min Each Region Completed 06/24/2023 43643 Therapeutic Activities Direc t, Each 15 Minutes Completed 06/21/2023 25746 Therapeutic Activities Direc t, Each 15 Minutes Completed 06/21/2023 97060 Manual Wallpaper Cleaner 1/> Area 15 Min Each Region Completed 06/21/2023 34057 Therapy Proc, Neuromuscular Reeducation Of Movement Completed 06/21/2023 75033 Therapy Proc 1/> Area 15Min Ea Completed 06/21/2023 82103 Hot/Cold Pack Completed 06/19/2023 29463 Therapeutic Activities Direc t, Each 15 Minutes Completed 06/19/2023 00892 Hot/Cold Pack Completed 06/19/2023 72077 Therapy Proc 1/> Area 15Min Ea Completed 06/19/2023 89538 Therapy Proc, Neuromuscular Reeducation Of Movement Completed 06/19/2023 16625 Manual Wallpaper Cleaner 1/> Area 15 Min Each Region Completed 06/17/2023 99101 Therapeutic Activities Direc t, Each 15 Minutes Completed 06/17/2023 17631 Manual Wallpaper Cleaner 1/> Area 15 Min Each Region Completed 06/17/2023 44235 Therapy Proc, Neuromuscular Reeducation Of Movement Completed 06/17/2023 81488 Therapy Proc 1/> Area 15Min Ea Completed 06/17/2023 87947 Hot/Cold Pack Completed 06/14/2023 83491 Therapeutic Activities Direc t, Each 15 Minutes Completed 06/14/2023 50773 Manual Wallpaper Cleaner 1/> Area 15 Min Each Region Completed 06/14/2023 81525 Therapy Proc, Neuromuscular Reeducation Of Movement Completed 06/14/2023 21653 Therapy Proc 1/> Area 15Min Ea Completed 06/14/2023 04319 Hot/Cold Pack Completed 06/12/2023 02042 Hot/Cold Pack Completed 06/12/2023 84616 Therapy Proc 1/> Area 15Min Ea Completed 06/12/2023 75173 Manual Wallpaper Cleaner 1/> Area 15 Min Each Region Completed 06/12/2023 35520 Therapy Proc, Neuromuscular Reeducation Of Movement Completed 06/12/2023 45591 Therapeutic Activities Direc t, Each 15 Minutes Completed 06/07/2023 37921 Therapeutic Activities Direc t, Each 15 Minutes Completed 06/07/2023 23159 Manual Wallpaper Cleaner 1/> Area 15 Min Each Region Completed 06/07/2023 40790 Therapy Proc, Neuromuscular Reeducation Of Movement Completed 06/07/2023 57851 Therapy Proc 1/> Area 15Min Ea Completed 06/05/2023 68921 Therapy Proc 1/> Area 15Min Ea Completed 06/05/2023 10975 Hot/Cold Pack Completed 06/05/2023 53366 Therapy Proc, Neuromuscular Reeducation Of Movement Completed 06/05/2023 62302 Manual Wallpaper Cleaner 1/> Area 15 Min Each Region Completed 06/05/2023 07459 Therapeutic Activities Direc t, Each 15 Minutes Completed 06/03/2023 20450 Therapeutic Activities Direc t, Each 15 Minutes Completed 06/03/2023 85583 Manual Wallpaper Cleaner 1/> Area 15 Min Each Region Completed 06/03/2023 92582 Therapy Proc, Neuromuscular Reeducation Of Movement Completed 06/03/2023 68930 Therapy Proc 1/> Area 15Min Ea Completed 06/03/2023 00620 Hot/Cold Pack Completed 05/31/2023 42294 Therapeutic Activities Direc t, Each 15 Minutes Completed 05/31/2023 27555 Hot/Cold Pack Completed 05/31/2023 47494 Therapy Proc, Neuromuscular Reeducation Of Movement Completed 05/31/2023 94634 Manual Wallpaper Cleaner 1/> Area 15 Min Each Region Completed 05/29/2023 23937 Therapeutic Activities Direc t, Each 15 Minutes Completed 05/29/2023 15610 Therapeutic Procedure Group Completed 05/29/2023 85247 Manual Wallpaper Cleaner 1/> Area 15 Min Each Region Completed 05/29/2023 29713 Therapy Proc, Neuromuscular Reeducation Of Movement Completed 05/29/2023 36241 Hot/Cold Pack Completed 05/27/2023 56678 Therapeutic Activities Direc t, Each 15 Minutes Completed 05/27/2023 21571 Therapeutic Procedure Group Completed 05/27/2023 08206 Manual Wallpaper Cleaner 1/> Area 15 Min Each Region Completed 05/27/2023 14112 Therapy Proc, Neuromuscular Reeducation Of Movement Completed 05/27/2023 09505 Hot/Cold Pack Completed 05/24/2023 48823 Hot/Cold Pack Completed 05/24/2023 84518 Therapy Proc 1/> Area 15Min Ea Completed 05/24/2023 34468 Manual Wallpaper Cleaner 1/> Area 15 Min Each Region Completed 05/24/2023 39671 Therapeutic Activities Direc t, Each 15 Minutes Completed 05/24/2023 55147 Therapy Proc, Neuromuscular Reeducation Of Movement Completed 05/22/2023 40988 Therapeutic Activities Direc t, Each 15 Minutes Completed 05/22/2023 85256 Manual Wallpaper Cleaner 1/> Area 15 Min Each Region Completed 05/22/2023 64580 Therapy Proc, Neuromuscular Reeducation Of Movement Completed 05/22/2023 62873 Therapy Proc 1/> Area 15Min Ea Completed 05/22/2023 17265 Hot/Cold Pack Completed 05/20/2023 92037 Therapeutic Activities Direc t, Each 15 Minutes Completed 05/20/2023 64470 Manual Wallpaper Cleaner 1/> Area 15 Min Each Region Completed 05/20/2023 91949 Therapy Proc, Neuromuscular Reeducation Of Movement Completed 05/20/2023 92778 Therapy Proc 1/> Area 15Min Ea Completed 05/20/2023 19134 Hot/Cold Pack Completed 05/17/2023 65645 Hot/Cold Pack Completed 05/17/2023 10447 Therapy Proc 1/> Area 15Min Ea Completed 05/17/2023 78852 Manual Wallpaper Cleaner 1/> Area 15 Min Each Region Completed 05/17/2023 24719 Therapeutic Activities Direc t, Each 15 Minutes Completed 05/17/2023 19381 Therapy Proc, Neuromuscular Reeducation Of Movement Completed 05/15/2023 85140 Therapeutic Activities Direc t, Each 15 Minutes Completed 05/15/2023 55051 Manual Wallpaper Cleaner 1/> Area 15 Min Each Region Completed 05/15/2023 64014 Therapy Proc, Neuromuscular Reeducation Of Movement Completed 05/15/2023 31119 Therapy Proc 1/> Area 15Min Ea Completed 05/15/2023 20531 Hot/Cold Pack Completed 2023 23442 Therapy Proc, Neuromuscular Reeducation Of Movement Completed 2023 46764 Hot/Cold Pack Completed 2023 05116 Therapy Proc 1/> Area 15Min Ea Completed 2023 25831 Manual Wallpaper Cleaner 1/> Area 15 Min Each Region Completed 2023 45677 Therapeutic Activities Direc t, Each 15 Minutes Completed 05/10/2023 81084 Therapeutic Activities Direc t, Each 15 Minutes Completed 05/10/2023 67340 Manual Wallpaper Cleaner 1/> Area 15 Min Each Region Completed 05/10/2023 92408 Therapy Proc, Neuromuscular Reeducation Of Movement Completed 05/10/2023 80932 Therapy Proc 1/> Area 15Min Ea Completed 05/10/2023 60081 Hot/Cold Pack Completed 05/08/2023 74521 Hot/Cold Pack Completed 05/08/2023 81872 Therapy Proc 1/> Area 15Min Ea Completed 05/08/2023 21745 Manual Wallpaper Cleaner 1/> Area 15 Min Each Region Completed 05/08/2023 69814 Therapy Proc, Neuromuscular Reeducation Of Movement Completed 05/08/2023 15073 Therapeutic Activities Direc t, Each 15 Minutes Completed 05/06/2023 17769 Therapeutic Activities Direc t, Each 15 Minutes Completed 05/06/2023 77448 Manual Wallpaper Cleaner 1/> Area 15 Min Each Region Completed 05/06/2023 97911 Therapy Proc, Neuromuscular Reeducation Of Movement Completed 05/06/2023 12739 Therapy Proc 1/> Area 15Min Ea Completed 05/06/2023 99017 Hot/Cold Pack Completed 05/02/2023 39457 Therapy Proc 1/> Area 15Min Ea Completed 05/02/2023 23406 Therapy Proc, Neuromuscular Reeducation Of Movement Completed 05/02/2023 27141 Manual Wallpaper Cleaner 1/> Area 15 Min Each Region Completed 05/02/2023 01074 Therapeutic Activities Direc t, Each 15 Minutes Completed 04/30/2023 87723 Manual Wallpaper Cleaner 1/> Area 15 Min Each Region Completed 04/30/2023 41213 Therapy Proc, Neuromuscular Reeducation Of Movement Completed 04/30/2023 53967 Therapy Proc 1/> Area 15Min Ea Completed 04/30/2023 80191 Hot/Cold Pack Completed 04/24/2023 31274 Manual Wallpaper Cleaner 1/> Area 15 Min Each Region Completed 04/24/2023 21612 Therapy Proc, Neuromuscular Reeducation Of Movement Completed 04/24/2023 82833 Therapy Proc 1/> Area 15Min Ea Completed 04/22/2023 65103 Manual Wallpaper Cleaner 1/> Area 15 Min Each Region Completed 04/22/2023 13168 Hot/Cold Pack Completed 04/22/2023 30570 Therapy Proc 1/> Area 15Min Ea Completed 04/22/2023 82224 Therapy Proc, Neuromuscular Reeducation Of Movement Completed 04/19/2023 41391 Manual Wallpaper Cleaner 1/> Area 15 Min Each Region Completed 04/19/2023 41730 Therapy Proc, Neuromuscular Reeducation Of Movement Completed 04/19/2023 37220 Therapy Proc 1/> Area 15Min Ea Completed 04/19/2023 33869 Hot/Cold Pack Completed 04/18/2023 42948 Manual Wallpaper Cleaner 1/> Area 15 Min Each Region Completed 04/18/2023 56033 Therapy Proc, Neuromuscular Reeducation Of Movement Completed 04/18/2023 73006 Therapy Proc 1/> Area 15Min Ea Completed 04/15/2023 07256 Manual Wallpaper Cleaner 1/> Area 15 Min Each Region Completed 04/15/2023 97865 Therapy Proc, Neuromuscular Reeducation Of Movement Completed 04/15/2023 15627 Therapy Proc 1/> Area 15Min Ea Completed 04/15/2023 85700 Hot/Cold Pack Completed 04/12/2023 72095 Hot/Cold Pack Completed 04/12/2023 14512 Therapy Proc, Neuromuscular Reeducation Of Movement Completed 04/12/2023 60827 Manual Wallpaper Cleaner 1/> Area 15 Min Each Region Completed 04/12/2023 86001 Therapy Proc 1/> Area 15Min Ea Completed 04/10/2023 68216 Manual Wallpaper Cleaner 1/> Area 15 Min Each Region Completed 04/10/2023 06964 Therapy Proc, Neuromuscular Reeducation Of Movement Completed 04/10/2023 67343 Therapy Proc 1/> Area 15Min Ea Completed 04/08/2023 15167 Manual Wallpaper Cleaner 1/> Area 15 Min Each Region Completed 04/08/2023 95312 Therapy Proc, Neuromuscular Reeducation Of Movement Completed 04/08/2023 21161 Therapy Proc 1/> Area 15Min Ea Completed 04/05/2023 08090 Therapy Proc, Neuromuscular Reeducation Of Movement Completed 04/05/2023 76230 Therapy Proc 1/> Area 15Min Ea Completed 04/05/2023 96616 Manual Wallpaper Cleaner 1/> Area 15 Min Each Region Completed 04/03/2023 74995 Manual Wallpaper Cleaner 1/> Area 15 Min Each Region Completed 04/03/2023 48432 Therapy Proc, Neuromuscular Reeducation Of Movement Completed 04/03/2023 00117 Therapy Proc 1/> Area 15Min Ea Completed 04/01/2023 41391 Manual Wallpaper Cleaner 1/> Area 15 Min Each Region Completed 04/01/2023 98387 Therapy Proc, Neuromuscular Reeducation Of Movement Completed 04/01/2023 82396 Therapy Proc 1/> Area 15Min Ea Completed 03/29/2023 71779 Manual Wallpaper Cleaner 1/> Area 15 Min Each Region Completed 03/29/2023 12779 Therapy Proc 1/> Area 15Min Ea Completed 03/29/2023 59410 Therapy Proc, Neuromuscular Reeducation Of Movement Completed 03/27/2023 21618 Manual Wallpaper Cleaner 1/> Area 15 Min Each Region Completed 03/27/2023 42812 Therapy Proc, Neuromuscular Reeducation Of Movement Completed 03/27/2023 16299 Therapy Proc 1/> Area 15Min Ea Completed 03/25/2023 78782 Manual Wallpaper Cleaner 1/> Area 15 Min Each Region Completed 03/25/2023 34861 Therapy Proc, Neuromuscular Reeducation Of Movement Completed 03/25/2023 16579 Therapy Proc 1/> Area 15Min Ea Completed 03/22/2023 65770 Manual Wallpaper Cleaner 1/> Area 15 Min Each Region Completed 03/22/2023 33654 Therapy Proc, Neuromuscular Reeducation Of Movement Completed 03/22/2023 68331 Therapy Proc 1/> Area 15Min Ea Completed 03/20/2023 15517 Manual Wallpaper Cleaner 1/> Area 15 Min Each Region Completed 03/20/2023 12328 Therapy Proc, Neuromuscular Reeducation Of Movement Completed 03/20/2023 09594 Therapy Proc 1/> Area 15Min Ea Completed 03/18/2023 06715 Manual Wallpaper Cleaner 1/> Area 15 Min Each Region Completed 03/18/2023 07701 Therapy Proc, Neuromuscular Reeducation Of Movement Completed 03/18/2023 10544 Therapy Proc 1/> Area 15Min Ea Completed Medical Devices Description No Information Available Encounters Type Date Location Provider Dx Diagnosis Office Visit 09/06/2023 10:30a [place] Dawson Almodovar, DO I10 Essential (pr imary) hypertension 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 F41.1 Generalized anxiety disorder R60.0 Localized edema Assessments Date Code Description Provider 09/09/2023 R26.2 Difficulty in wa lking, not elsewhere classified Aki Garcia, GABRIELLET 09/09/2023 M25.511 Pain in right shoulder Oziel Garcia, DPT 09/06/2023 I10 Essential (primary) hyperten vickie Dawson Almodovar, DO 09/06/2023 K21.9 Gastro-esophagea l reflux 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 Dawson Almodovar, DO 09/06/2023 F41.1 Generalized anxiety disorder Dawson Almodovar, DO 09/06/2023 R60.0 Localized edema Dawson Chamberlain. Jose or, DO 09/05/2023 R60.0 Localized edema Dawson A. Taymagdalene or, DO 09/05/2023 R60.0 Localized edema Lab - [place] 09/05/2023 I10 Essential (primary) hyperten vickie Dawson Almodovar, DO 09/05/2023 I10 Essential (primary) hyperten vickie Lab - [place] 09/02/2023 R26.2 Difficulty in wa lking, not elsewhere classified Aki Garcia, NOE 09/02/2023 M25.511 Pain in right shoulder Oziel Garcia, DPT 08/30/2023 R26.2 Difficulty in wa [place]king, not elsewhere classified Aki Garcia, NOE 08/30/2023 M25.511 Pain in right shoulder Oziel Garcia, DPT 08/27/2023 R26.2 Difficulty in wa lking, not elsewhere classified Aki Garcia, GABRIELLET 08/27/2023 M25.511 Pain in right shoulder Oziel [...] DPT 05/22/2023 M25.511 Pain in right shoulder Oizel Garcia, DPT 05/20/2023 R26.2 Difficulty in wa [...] 04/08/2023 M25.511 Pain in right shoulder Oziel aGrcia, DPT 04/05/2023 R26.2 Difficulty in wa lking, [...] DPT 03/29/2023 M25.511 Pain in right shoulder Ozile Garcia, DPT 03/27/2023 R26.2 Difficulty in wa lking, not elsewhere classified Aki Garcia DPT 03/27/2023 M25.511 Pain in right shoulder [...] 10:30 am - Dawson Almodovar DO at [place] * 03/06/2024 9:00 am - [facility] [place] [facility] [place] Functional Status Description No Information Available Mental Status Description No Information Available Referrals Description No Information Available
--- OUTSIDE RECORDS SUMMARY | 2023-10-11 13:14 | External Medical Summary | Continuity of Care Document ---
Author Name Unknown Organization [facility] Address [address] [place] [address] Phone [phone] Problems Active Problems Provider Date Essential hypertension Dawson Almodovar DO Onset: 02/19/2018 Osteoarthritis Onset: 0 Bladder muscle dysfunction - overactive Onset: Gastroesophageal reflux disease Dawson Almodovar DO Onset: 02/19/2018 Social History Type Date Description Comments Sex Unknown Tobacco Use Reviewed: 02/22/23 Never Smoked Cigarette s Smoking Status Reviewed: 02/22/23 Never Smoked Cigaret pretty Tobacco Use Reviewed: 02/22/23 Never Smoked Cigars Tobacco Use Reviewed: 02/22/23 Never Smoked A Pipe Smokeless Tobacco 02/22/2023 Never Used Smokeless To bacco ETOH Use Denies alcohol use Recreational Drug Use Denies Drug Use Allergies and adverse reactions Active Allergies Criticality Reaction | Severity Comments Date Cephalexin Unable to assess criticality 03/20/2021 Inactive Allergies NKDA Unable to assess criticality 02/19/2018 Medications Active Medications SIG Qnty Indications Order ing Provider Date [id number] Tablets 2 tablets by mouth every day 30tabs R60.0 Dawson Almodovar DO 10/05/2022 Multi + [place]-3 Adult GummiesChewtabs 1 by mouth every day Dawson Almodovar DO 08/08/2022 Vitamin B ComplexTablets 1 by mouth every day Dawson Almodovar DO 08/08/2022 Losartan Potassium/Hydrochlorothi [id number] Tablets 1 by mouth every day 90tabs I10 Dawson Almodovar DO 03/21/2020 Juice Plus Fibre` Dawson Almodovar DO 02/19/2018 Aspirin Adult Low Dtrj04gu Tablets DR 1 by mouth every day Unknown Citalopram [id number] Tablets 1 by mouth every day 90tabs F41.1 Dawson Almodovar, DO Vitamin D3 Maximum [id number] (5000 Ut) Capsules 1 by mouth once daily Unknown Immunizations CPT Code Status Date Vaccine Lot # [id number] Given 07/14/2009 Pneumococcal Vaccine/Pneu movax 23 [id number] Refused 10/19/2022 Shingrix 09449 Refused 08/08/2022 Pneumococcal Conjugate-Pr evnar 20 08520 Refused 08/08/2022 Influenza Vac, Split, Preservative Free High Dose Age 65 & > 73989 Refused 04/20/2022 Moderna Sars-Co v-2 (Cov-19) vacc,100 mcg/ 0.5 mL 12Y+EMR Doc Only [id number] Refused 10/16/2021 Influenza Virus Vaccine, Quadrivalent (Cciiv4), Derived From Cell 01873 Refused 10/16/2021 Shingrix 21319 Refused 10/16/2021 Pneumococcal Conjugate-Pr evnar 13 52952 Refused 03/20/2021 Pfizer Sars-Cov -2 (Cov-19) vacc 30mcg/0.3ML 12Y+ EMR Doc Only 72977 Refused 04/17/2019 Influenza Vacci ne, Inactivated, Subunit, Adjuvanted, For Intrmusc 47049 Refused 01/29/2019 Tdap (Tetanus, diphtheria & acel. pertussis) Adacel or Boostrix 81223 Refused 01/29/2019 Pneumococcal Conjugate-Pr evnar 13 Vital Signs Date Vital Result Comment 02/22/2023 10:40am BP Systolic 138 mmHg BP Diastolic 82 mmHg Body Temperature 98.2 F Heart Rate 84 /min Respiratory Rate 16 /min Weight 196.12 lb Weight 88.962 kg 10/19/2022 9:33am BP Systolic 96 mmHg BP Diastolic 60 mmHg Body Temperature 97.8 F Heart Rate 90 /min Respiratory Rate 18 /min Weight 205.00 lb Weight 92.988 kg Procedures Date Code Description Status 09/05/2023 13528 Venipuncture Routine Complet ed 08/27/2023 02859 Therapeutic Activities Direc t, Each 15 Minutes Completed 08/27/2023 47861 Manual Guide Rail Cleaner 1/> Area 15 Min Each Region Completed 08/27/2023 85085 Therapy Proc, Neuromuscular Reeducation Of Movement Completed 08/27/2023 21978 Therapy Proc 1/> Area 15Min Ea Completed 08/27/2023 04755 Hot/Cold Pack Completed 08/23/2023 50670 Therapy Proc 1/> Area 15Min Ea Completed 08/23/2023 33944 Hot/Cold Pack Completed 08/23/2023 12205 Therapy Proc, Neuromuscular Reeducation Of Movement Completed 08/23/2023 84954 Manual Guide Rail Cleaner 1/> Area 15 Min Each Region Completed 08/23/2023 11443 Therapeutic Activities Direc t, Each 15 Minutes Completed 08/20/2023 77719 Therapeutic Activities Direc t, Each 15 Minutes Completed 08/20/2023 49075 Manual Guide Rail Cleaner 1/> Area 15 Min Each Region Completed 08/20/2023 42372 Therapy Proc, Neuromuscular Reeducation Of Movement Completed 08/20/2023 52780 Therapy Proc 1/> Area 15Min Ea Completed 08/20/2023 63812 Hot/Cold Pack Completed 08/16/2023 45101 Therapeutic Activities Direc t, Each 15 Minutes Completed 08/16/2023 29684 Hot/Cold Pack Completed 08/16/2023 86416 Therapy Proc 1/> Area 15Min Ea Completed 08/16/2023 48860 Therapy Proc, Neuromuscular Reeducation Of Movement Completed 08/16/2023 86974 Manual Guide Rail Cleaner 1/> Area 15 Min Each Region Completed 08/12/2023 24579 Therapeutic Activities Direc t, Each 15 Minutes Completed 08/12/2023 90583 Manual Guide Rail Cleaner 1/> Area 15 Min Each Region Completed 08/12/2023 49810 Therapy Proc, Neuromuscular Reeducation Of Movement Completed 08/12/2023 24278 Therapy Proc 1/> Area 15Min Ea Completed 08/12/2023 24799 Hot/Cold Pack Completed 08/09/2023 67251 Therapeutic Activities Direc t, Each 15 Minutes Completed 08/09/2023 21444 Manual Guide Rail Cleaner 1/> Area 15 Min Each Region Completed 08/09/2023 62957 Therapy Proc, Neuromuscular Reeducation Of Movement Completed 08/09/2023 39593 Therapy Proc 1/> Area 15Min Ea Completed 08/09/2023 61813 Hot/Cold Pack Completed 08/05/2023 80957 Therapy Proc, Neuromuscular Reeducation Of Movement Completed 08/05/2023 70725 Hot/Cold Pack Completed 08/05/2023 84054 Manual Guide Rail Cleaner 1/> Area 15 Min Each Region Completed 08/05/2023 71656 Therapeutic Activities Direc t, Each 15 Minutes Completed 08/02/2023 71750 Therapeutic Activities Direc t, Each 15 Minutes Completed 08/02/2023 56692 Manual Guide Rail Cleaner 1/> Area 15 Min Each Region Completed 08/02/2023 42642 Therapy Proc, Neuromuscular Reeducation Of Movement Completed 08/02/2023 77654 Therapy Proc 1/> Area 15Min Ea Completed 08/02/2023 75647 Hot/Cold Pack Completed 07/29/2023 45957 Therapeutic Activities Direc t, Each 15 Minutes Completed 07/29/2023 20312 Manual Guide Rail Cleaner 1/> Area 15 Min Each Region Completed 07/29/2023 96139 Therapy Proc, Neuromuscular Reeducation Of Movement Completed 07/29/2023 18197 Therapy Proc 1/> Area 15Min Ea Completed 07/29/2023 81382 Hot/Cold Pack Completed 07/22/2023 50936 Hot/Cold Pack Completed 07/22/2023 62980 Therapy Proc 1/> Area 15Min Ea Completed 07/22/2023 15030 Manual Guide Rail Cleaner 1/> Area 15 Min Each Region Completed 07/22/2023 70123 Therapeutic Activities Direc t, Each 15 Minutes Completed 07/22/2023 41306 Therapy Proc, Neuromuscular Reeducation Of Movement Completed 07/19/2023 85840 Therapeutic Activities Direc t, Each 15 Minutes Completed 07/19/2023 14489 Manual Guide Rail Cleaner 1/> Area 15 Min Each Region Completed 07/19/2023 60226 Therapy Proc, Neuromuscular Reeducation Of Movement Completed 07/19/2023 12277 Therapy Proc 1/> Area 15Min Ea Completed 07/19/2023 42393 Hot/Cold Pack Completed 07/15/2023 70531 Manual Guide Rail Cleaner 1/> Area 15 Min Each Region Completed 07/15/2023 38289 Hot/Cold Pack Completed 07/15/2023 06479 Therapy Proc, Neuromuscular Reeducation Of Movement Completed 07/15/2023 24655 Therapeutic Activities Direc t, Each 15 Minutes Completed 07/12/2023 42062 Therapeutic Activities Direc t, Each 15 Minutes Completed 07/12/2023 77069 Manual Guide Rail Cleaner 1/> Area 15 Min Each Region Completed 07/12/2023 39033 Therapy Proc, Neuromuscular Reeducation Of Movement Completed 07/12/2023 32910 Therapy Proc 1/> Area 15Min Ea Completed 07/12/2023 67559 Hot/Cold Pack Completed 07/10/2023 34087 Therapy Proc 1/> Area 15Min Ea Completed 07/10/2023 65458 Hot/Cold Pack Completed 07/10/2023 90898 Therapy Proc, Neuromuscular Reeducation Of Movement Completed 07/10/2023 53259 Therapeutic Activities Direc t, Each 15 Minutes Completed 07/10/2023 11442 Manual Guide Rail Cleaner 1/> Area 15 Min Each Region Completed 07/08/2023 44606 Therapeutic Activities Direc t, Each 15 Minutes Completed 07/08/2023 51715 Hot/Cold Pack Completed 07/08/2023 76717 Therapy Proc 1/> Area 15Min Ea Completed 07/08/2023 43013 Manual Guide Rail Cleaner 1/> Area 15 Min Each Region Completed 07/08/2023 62695 Therapy Proc, Neuromuscular Reeducation Of Movement Completed 07/05/2023 26324 Therapeutic Activities Direc t, Each 15 Minutes Completed 07/05/2023 76317 Manual Guide Rail Cleaner 1/> Area 15 Min Each Region Completed 07/05/2023 70978 Therapy Proc, Neuromuscular Reeducation Of Movement Completed 07/05/2023 43277 Therapy Proc 1/> Area 15Min Ea Completed 07/05/2023 18770 Hot/Cold Pack Completed 07/03/2023 87632 Therapeutic Activities Direc t, Each 15 Minutes Completed 07/03/2023 85394 Manual Guide Rail Cleaner 1/> Area 15 Min Each Region Completed 07/03/2023 40762 Therapy Proc, Neuromuscular Reeducation Of Movement Completed 07/03/2023 08985 Therapy Proc 1/> Area 15Min Ea Completed 07/03/2023 66872 Hot/Cold Pack Completed 07/01/2023 80917 Therapy Proc, Neuromuscular Reeducation Of Movement Completed 07/01/2023 10551 Hot/Cold Pack Completed 07/01/2023 54399 Therapy Proc 1/> Area 15Min Ea Completed 07/01/2023 08281 Manual Guide Rail Cleaner 1/> Area 15 Min Each Region Completed 07/01/2023 58952 Therapeutic Activities Direc t, Each 15 Minutes Completed 06/28/2023 38809 Therapeutic Activities Direc t, Each 15 Minutes Completed 06/28/2023 76901 Manual Guide Rail Cleaner 1/> Area 15 Min Each Region Completed 06/28/2023 98139 Therapy Proc, Neuromuscular Reeducation Of Movement Completed 06/28/2023 16533 Therapy Proc 1/> Area 15Min Ea Completed 06/24/2023 14247 Therapeutic Activities Direc t, Each 15 Minutes Completed 06/24/2023 13382 Manual Guide Rail Cleaner 1/> Area 15 Min Each Region Completed 06/24/2023 03174 Therapy Proc, Neuromuscular Reeducation Of Movement Completed 06/24/2023 14669 Therapy Proc 1/> Area 15Min Ea Completed 06/24/2023 74881 Hot/Cold Pack Completed 06/21/2023 01998 Hot/Cold Pack Completed 06/21/2023 84329 Therapy Proc 1/> Area 15Min Ea Completed 06/21/2023 30693 Therapy Proc, Neuromuscular Reeducation Of Movement Completed 06/21/2023 40008 Therapeutic Activities Direc t, Each 15 Minutes Completed 06/21/2023 85287 Manual Guide Rail Cleaner 1/> Area 15 Min Each Region Completed 06/19/2023 06886 Therapeutic Activities Direc t, Each 15 Minutes Completed 06/19/2023 74876 Manual Guide Rail Cleaner 1/> Area 15 Min Each Region Completed 06/19/2023 29319 Therapy Proc, Neuromuscular Reeducation Of Movement Completed 06/19/2023 11706 Therapy Proc 1/> Area 15Min Ea Completed 06/19/2023 94476 Hot/Cold Pack Completed 06/17/2023 54134 Therapeutic Activities Direc t, Each 15 Minutes Completed 06/17/2023 62267 Manual Guide Rail Cleaner 1/> Area 15 Min Each Region Completed 06/17/2023 61016 Therapy Proc, Neuromuscular Reeducation Of Movement Completed 06/17/2023 64758 Therapy Proc 1/> Area 15Min Ea Completed 06/17/2023 50729 Hot/Cold Pack Completed 06/14/2023 29499 Hot/Cold Pack Completed 06/14/2023 24547 Therapy Proc 1/> Area 15Min Ea Completed 06/14/2023 22834 Manual Guide Rail Cleaner 1/> Area 15 Min Each Region Completed 06/14/2023 95507 Therapeutic Activities Direc t, Each 15 Minutes Completed 06/14/2023 65474 Therapy Proc, Neuromuscular Reeducation Of Movement Completed 06/12/2023 41206 Therapeutic Activities Direc t, Each 15 Minutes Completed 06/12/2023 20060 Manual Guide Rail Cleaner 1/> Area 15 Min Each Region Completed 06/12/2023 70112 Therapy Proc, Neuromuscular Reeducation Of Movement Completed 06/12/2023 41799 Therapy Proc 1/> Area 15Min Ea Completed 06/12/2023 16251 Hot/Cold Pack Completed 06/07/2023 82125 Manual Guide Rail Cleaner 1/> Area 15 Min Each Region Completed 06/07/2023 05081 Therapy Proc 1/> Area 15Min Ea Completed 06/07/2023 29478 Therapy Proc, Neuromuscular Reeducation Of Movement Completed 06/07/2023 39308 Therapeutic Activities Direc t, Each 15 Minutes Completed 06/05/2023 57114 Therapeutic Activities Direc t, Each 15 Minutes Completed 06/05/2023 15957 Manual Guide Rail Cleaner 1/> Area 15 Min Each Region Completed 06/05/2023 95185 Therapy Proc, Neuromuscular Reeducation Of Movement Completed 06/05/2023 81166 Therapy Proc 1/> Area 15Min Ea Completed 06/05/2023 19506 Hot/Cold Pack Completed 06/03/2023 36405 Therapy Proc 1/> Area 15Min Ea Completed 06/03/2023 74733 Hot/Cold Pack Completed 06/03/2023 47990 Therapeutic Activities Direc t, Each 15 Minutes Completed 06/03/2023 82103 Manual Guide Rail Cleaner 1/> Area 15 Min Each Region Completed 06/03/2023 93479 Therapy Proc, Neuromuscular Reeducation Of Movement Completed 05/31/2023 92460 Therapeutic Activities Direc t, Each 15 Minutes Completed 05/31/2023 46345 Manual Guide Rail Cleaner 1/> Area 15 Min Each Region Completed 05/31/2023 91451 Therapy Proc, Neuromuscular Reeducation Of Movement Completed 05/31/2023 70620 Hot/Cold Pack Completed 05/29/2023 88846 Therapy Proc, Neuromuscular Reeducation Of Movement Completed 05/29/2023 96079 Hot/Cold Pack Completed 05/29/2023 39211 Manual Guide Rail Cleaner 1/> Area 15 Min Each Region Completed 05/29/2023 45358 Therapeutic Procedure Group Completed 05/29/2023 68140 Therapeutic Activities Direc t, Each 15 Minutes Completed 05/27/2023 51969 Therapeutic Activities Direc t, Each 15 Minutes Completed 05/27/2023 60707 Therapeutic Procedure Group Completed 05/27/2023 40703 Manual Guide Rail Cleaner 1/> Area 15 Min Each Region Completed 05/27/2023 10604 Therapy Proc, Neuromuscular Reeducation Of Movement Completed 05/27/2023 90951 Hot/Cold Pack Completed 05/24/2023 88639 Manual Guide Rail Cleaner 1/> Area 15 Min Each Region Completed 05/24/2023 08011 Hot/Cold Pack Completed 05/24/2023 51944 Therapy Proc 1/> Area 15Min Ea Completed 05/24/2023 45440 Therapy Proc, Neuromuscular Reeducation Of Movement Completed 05/24/2023 04391 Therapeutic Activities Direc t, Each 15 Minutes Completed 05/22/2023 28991 Therapeutic Activities Direc t, Each 15 Minutes Completed 05/22/2023 57367 Manual Guide Rail Cleaner 1/> Area 15 Min Each Region Completed 05/22/2023 05806 Therapy Proc, Neuromuscular Reeducation Of Movement Completed 05/22/2023 57433 Therapy Proc 1/> Area 15Min Ea Completed 05/22/2023 98174 Hot/Cold Pack Completed 05/20/2023 27944 Therapeutic Activities Direc t, Each 15 Minutes Completed 05/20/2023 90936 Manual Guide Rail Cleaner 1/> Area 15 Min Each Region Completed 05/20/2023 05461 Therapy Proc, Neuromuscular Reeducation Of Movement Completed 05/20/2023 38899 Therapy Proc 1/> Area 15Min Ea Completed 05/20/2023 45808 Hot/Cold Pack Completed 05/17/2023 46960 Therapy Proc, Neuromuscular Reeducation Of Movement Completed 05/17/2023 41304 Hot/Cold Pack Completed 05/17/2023 72623 Therapy Proc 1/> Area 15Min Ea Completed 05/17/2023 50699 Manual Guide Rail Cleaner 1/> Area 15 Min Each Region Completed 05/17/2023 08400 Therapeutic Activities Direc t, Each 15 Minutes Completed 05/15/2023 99766 Therapeutic Activities Direc t, Each 15 Minutes Completed 05/15/2023 67096 Manual Guide Rail Cleaner 1/> Area 15 Min Each Region Completed 05/15/2023 33829 Therapy Proc, Neuromuscular Reeducation Of Movement Completed 05/15/2023 14142 Therapy Proc 1/> Area 15Min Ea Completed 05/15/2023 05990 Hot/Cold Pack Completed 2023 14677 Therapeutic Activities Direc t, Each 15 Minutes Completed 2023 10263 Manual Guide Rail Cleaner 1/> Area 15 Min Each Region Completed 2023 35328 Therapy Proc, Neuromuscular Reeducation Of Movement Completed 2023 62645 Therapy Proc 1/> Area 15Min Ea Completed 2023 51249 Hot/Cold Pack Completed 05/10/2023 28241 Hot/Cold Pack Completed 05/10/2023 77422 Therapy Proc 1/> Area 15Min Ea Completed 05/10/2023 63289 Manual Guide Rail Cleaner 1/> Area 15 Min Each Region Completed 05/10/2023 26023 Therapeutic Activities Direc t, Each 15 Minutes Completed 05/10/2023 71143 Therapy Proc, Neuromuscular Reeducation Of Movement Completed 05/08/2023 61387 Therapeutic Activities Direc t, Each 15 Minutes Completed 05/08/2023 91509 Manual Guide Rail Cleaner 1/> Area 15 Min Each Region Completed 05/08/2023 78126 Therapy Proc, Neuromuscular Reeducation Of Movement Completed 05/08/2023 37715 Therapy Proc 1/> Area 15Min Ea Completed 05/08/2023 18012 Hot/Cold Pack Completed 05/06/2023 02130 Manual Guide Rail Cleaner 1/> Area 15 Min Each Region Completed 05/06/2023 48534 Hot/Cold Pack Completed 05/06/2023 05147 Therapy Proc 1/> Area 15Min Ea Completed 05/06/2023 69495 Therapy Proc, Neuromuscular Reeducation Of Movement Completed 05/06/2023 41493 Therapeutic Activities Direc t, Each 15 Minutes Completed 05/02/2023 46593 Therapeutic Activities Direc t, Each 15 Minutes Completed 05/02/2023 89656 Manual Guide Rail Cleaner 1/> Area 15 Min Each Region Completed 05/02/2023 01590 Therapy Proc, Neuromuscular Reeducation Of Movement Completed 05/02/2023 68884 Therapy Proc 1/> Area 15Min Ea Completed 04/30/2023 67472 Manual Guide Rail Cleaner 1/> Area 15 Min Each Region Completed 04/30/2023 43237 Hot/Cold Pack Completed 04/30/2023 68800 Therapy Proc, Neuromuscular Reeducation Of Movement Completed 04/30/2023 84317 Therapy Proc 1/> Area 15Min Ea Completed 04/24/2023 34309 Therapy Proc, Neuromuscular Reeducation Of Movement Completed 04/24/2023 53966 Therapy Proc 1/> Area 15Min Ea Completed 04/24/2023 36009 Manual Guide Rail Cleaner 1/> Area 15 Min Each Region Completed 04/22/2023 36728 Manual Guide Rail Cleaner 1/> Area 15 Min Each Region Completed 04/22/2023 68693 Therapy Proc, Neuromuscular Reeducation Of Movement Completed 04/22/2023 43538 Therapy Proc 1/> Area 15Min Ea Completed 04/22/2023 72750 Hot/Cold Pack Completed 04/19/2023 91113 Manual Guide Rail Cleaner 1/> Area 15 Min Each Region Completed 04/19/2023 00041 Therapy Proc, Neuromuscular Reeducation Of Movement Completed 04/19/2023 78252 Therapy Proc 1/> Area 15Min Ea Completed 04/19/2023 26508 Hot/Cold Pack Completed 04/18/2023 22779 Manual Guide Rail Cleaner 1/> Area 15 Min Each Region Completed 04/18/2023 38842 Therapy Proc, Neuromuscular Reeducation Of Movement Completed 04/18/2023 95541 Therapy Proc 1/> Area 15Min Ea Completed 04/15/2023 39257 Therapy Proc, Neuromuscular Reeducation Of Movement Completed 04/15/2023 64255 Hot/Cold Pack Completed 04/15/2023 68891 Therapy Proc 1/> Area 15Min Ea Completed 04/15/2023 63013 Manual Guide Rail Cleaner 1/> Area 15 Min Each Region Completed 04/12/2023 51251 Manual Guide Rail Cleaner 1/> Area 15 Min Each Region Completed 04/12/2023 43412 Therapy Proc, Neuromuscular Reeducation Of Movement Completed 04/12/2023 40647 Therapy Proc 1/> Area 15Min Ea Completed 04/12/2023 03543 Hot/Cold Pack Completed 04/10/2023 02120 Manual Guide Rail Cleaner 1/> Area 15 Min Each Region Completed 04/10/2023 04660 Therapy Proc, Neuromuscular Reeducation Of Movement Completed 04/10/2023 25788 Therapy Proc 1/> Area 15Min Ea Completed 04/08/2023 32630 Manual Guide Rail Cleaner 1/> Area 15 Min Each Region Completed 04/08/2023 81850 Therapy Proc, Neuromuscular Reeducation Of Movement Completed 04/08/2023 85492 Therapy Proc 1/> Area 15Min Ea Completed 04/05/2023 35723 Therapy Proc 1/> Area 15Min Ea Completed 04/05/2023 91417 Therapy Proc, Neuromuscular Reeducation Of Movement Completed 04/05/2023 87482 Manual Guide Rail Cleaner 1/> Area 15 Min Each Region Completed 04/03/2023 05275 Manual Guide Rail Cleaner 1/> Area 15 Min Each Region Completed 04/03/2023 34475 Therapy Proc, Neuromuscular Reeducation Of Movement Completed 04/03/2023 27320 Therapy Proc 1/> Area 15Min Ea Completed 04/01/2023 87312 Manual Guide Rail Cleaner 1/> Area 15 Min Each Region Completed 04/01/2023 50334 Therapy Proc, Neuromuscular Reeducation Of Movement Completed 04/01/2023 68606 Therapy Proc 1/> Area 15Min Ea Completed 03/29/2023 53860 Manual Guide Rail Cleaner 1/> Area 15 Min Each Region Completed 03/29/2023 89575 Therapy Proc, Neuromuscular Reeducation Of Movement Completed 03/29/2023 85362 Therapy Proc 1/> Area 15Min Ea Completed 03/27/2023 42657 Manual Guide Rail Cleaner 1/> Area 15 Min Each Region Completed 03/27/2023 53518 Therapy Proc, Neuromuscular Reeducation Of Movement Completed 03/27/2023 06682 Therapy Proc 1/> Area 15Min Ea Completed 03/25/2023 55870 Therapy Proc 1/> Area 15Min Ea Completed 03/25/2023 84481 Manual Guide Rail Cleaner 1/> Area 15 Min Each Region Completed 03/25/2023 33375 Therapy Proc, Neuromuscular Reeducation Of Movement Completed 03/22/2023 74687 Manual Guide Rail Cleaner 1/> Area 15 Min Each Region Completed 03/22/2023 93246 Therapy Proc, Neuromuscular Reeducation Of Movement Completed 03/22/2023 04765 Therapy Proc 1/> Area 15Min Ea Completed 03/20/2023 45106 Manual Guide Rail Cleaner 1/> Area 15 Min Each Region Completed 03/20/2023 14151 Therapy Proc, Neuromuscular Reeducation Of Movement Completed 03/20/2023 70379 Therapy Proc 1/> Area 15Min Ea Completed 03/18/2023 67787 Manual Guide Rail Cleaner 1/> Area 15 Min Each Region Completed 03/18/2023 68289 Therapy Proc 1/> Area 15Min Ea Completed 03/18/2023 64016 Therapy Proc, Neuromuscular Reeducation Of Movement Completed 03/15/2023 48030 Manual Guide Rail Cleaner 1/> Area 15 Min Each Region Completed 03/15/2023 69173 Therapy Proc, Neuromuscular Reeducation Of Movement Completed 03/15/2023 38294 Therapy Proc 1/> Area 15Min Ea Completed 03/13/2023 37804 Physical Therapy Evaluation Moderate Complexity Completed 03/13/2023 48084 Manual Guide Rail Cleaner 1/> Area 15 Min Each Region Completed 03/13/2023 04896 Therapy Proc 1/> Area 15Min Ea Completed Medical Devices Description No Information Available Encounters Description No Information Available Assessments Date Code Description Provider 09/05/2023 R60.0 Localized edema Lab - [place] 09/05/2023 I10 Essential (primary) hyperten vickie Lab - [place] 08/27/2023 R26.2 Difficulty in wa lking, not elsewhere classified GABRIELLE EspinozaT 08/27/2023 M25.511 Pain in right shoulder Oziel Garcia, DPT 08/23/2023 R26.2 Difficulty in wa lking, not elsewhere classified Aki Garcia, DPT 08/23/2023 M25.511 Pain in right shoulder Oziel Garcia, DPT 08/20/2023 R26.2 Difficulty in wa lking, not elsewhere classified GABRIELLE EspinozaT 08/20/2023 M25.511 Pain in right shoulder Oziel Garcia, DPT 08/16/2023 R26.2 Difficulty in wa lking, not elsewhere classified Aki Garcia DPT 08/16/2023 M25.511 Pain in right shoulder Oziel Garcia, DPT 08/12/2023 R26.2 Difficulty in wa lking, not elsewhere classified GABRIELLE EspinozaT 08/12/2023 M25.511 Pain in right shoulder Oziel Garcia, DPT 08/09/2023 R26.2 Difficulty in wa lking, not elsewhere classified GABRIELLE EspinozaT 08/09/2023 M25.511 Pain in right shoulder Oziel Garcia, DPT 08/05/2023 R26.2 Difficulty in wa lking, not elsewhere classified Aki Garcia DPT 08/05/2023 M25.511 Pain in right shoulder [...] DPT 05/17/2023 M25.511 Pain in right shoulder Ozeil Garcia, DPT 05/15/2023 R26.2 Difficulty in wa [...] lking, not elsewhere classified Aki Garcia, GABRIELLET 03/15/2023 M25.511 Pain in right shoulder Oziel Garcia, GABRIELLET 03/13/2023 R26.2 Difficulty in wa lking, not elsewhere classified Aki Garcia, GABRIELLET 03/13/2023 M25.511 Pain in right shoulder Oziel Garcia, NOE Plan of Treatment Future Appointment(s):* 09/06/2023 10:30 am - Dawson Almodovar DO at [place] Functional Status Description No Information Available Mental Status Description No Information Available Referrals Description No Information Available"
--- OUTSIDE RECORDS SUMMARY | 2023-10-11 13:14 | External Medical Summary | Continuity of Care Document ---
Author Name Unknown Organization Family Practice [facility] Address [address] [place] [address] Phone [phone] Problems Active Problems Provider Date Essential hypertension [...] SIG Qnty Indications Order ing Provider Date Fmhbltsuur08er Tablets 2 tablets by mouth every day 30tabs R60.0 Dawson Almodovar DO 10/05/2022 Multi + [place]-3 Adult GummiesChewtabs 1 by mouth every day Dawson Almodovar DO 08/08/2022 Vitamin B ComplexTablets 1 by mouth every day Dawson Almodovar DO 08/08/2022 Losartan Potassium/Hydrochlorothi -96lx Tablets 1 by mouth every day 90tabs I10 Dawson Almodovar DO 03/21/2020 Juice Plus Fibre` Dawson Almodovar DO 02/19/2018 Aspirin Adult Low Nmhz30yy Tablets DR 1 by mouth every day Unknown Citalopram Tsdkialknyky13xl Tablets 1 by mouth every day 90tabs F41.1 Dawson Almodovar, DO Vitamin D3 Maximum [id number] (5000 Ut) Capsules 1 by mouth once daily Unknown Immunizations CPT Code Status Date Vaccine Lot # [id number] Given 07/14/2009 Pneumococcal Vaccine/Pneu movax 23 83808 Refused 09/06/2023 Sarscov2 Vaccin e 50 mcg/0.5 ML For Im Use 12 Yrs And Older 17643 Refused 09/06/2023 Pneumococcal Conjugate-Pr evnar 20 68842 Refused 10/19/2022 Shingrix 18750 Refused 08/08/2022 Pneumococcal Conjugate-Pr evnar 20 43253 Refused 08/08/2022 Influenza Vac, Split, Preservative Free High Dose Age 65 & > 37152 Refused 04/20/2022 Moderna Sars-Co v-2 (Cov-19) vacc,100 mcg/ 0.5 mL 12Y+EMR Doc Only 69187 Refused 10/16/2021 Influenza Virus Vaccine, Quadrivalent (Cciiv4), Derived From Cell 12078 Refused 10/16/2021 Shingrix 78138 Refused 10/16/2021 Pneumococcal Conjugate-Pr evnar 13 43608 Refused 03/20/2021 Pfizer Sars-Cov -2 (Cov-19) vacc 30mcg/0.3ML 12Y+ EMR Doc Only 34114 Refused 04/17/2019 Influenza Vacci ne, Inactivated, Subunit, Adjuvanted, For Intrmus 16478 Refused 01/29/2019 Tdap (Tetanus, diphtheria & acel. pertussis) Adacel or Boostrix 81746 Refused 01/29/2019 Pneumococcal Conjugate-Pr evnar 13 Vital Signs Date Vital Result Comment 09/06/2023 10:35am BP Systolic 130 mmHg BP Diastolic 78 mmHg Body Temperature 98.2 F Heart Rate 76 /min Respiratory Rate 16 /min Weight 205.31 lb Weight 93.130 kg Height 62 inches 5'2" BMI (Body Mass Index) 37.5 kg/m2 [place] Body Weight 110 lb 02/22/2023 10:40am BP Systolic 138 mmHg BP Diastolic 82 mmHg Body Temperature 98.2 F Heart Rate 84 /min Respiratory Rate 16 /min Weight 196.12 lb Weight 88.962 kg Results Test Acquired Date Facility Test Result H/L Range N ote BMP 09/05/2023 [facility] [address] [place], [place] [id number] [phone] Glucose 88 mg/dL 70-110 BUN 23 mg/dL 6-25 Creatinine 0.8 mg/dL 0.5-1.2 Sodium 138 mEq/L 135-145 Potassium 4.1 mEq/L 3.5-5.0 Chloride 100 mEq/L 95-107 Co-2 29 mEq/L 24-31 Calcium 9.4 mg/dL 8.5-10.6 GFR 72 ML/MIN/1.73SQM >60 Procedures Date Code Description Status 09/06/2023 1101F PT SCR Future Fall Risk, No Fall Or 1 W/Out Injury Completed 09/05/2023 09933 Venipuncture Routine Complet ed 09/02/2023 50431 Therapeutic Activities Direc t, Each 15 Minutes Completed 09/02/2023 55760 Manual Cigar Head Perforator 1/> Area 15 Min Each Region Completed 09/02/2023 91455 Therapy Proc, Neuromuscular Reeducation Of Movement Completed 09/02/2023 30586 Therapy Proc 1/> Area 15Min Ea Completed 09/02/2023 09499 Hot/Cold Pack Completed 08/30/2023 10541 Therapy Proc 1/> Area 15Min Ea Completed 08/30/2023 34183 Hot/Cold Pack Completed 08/30/2023 67505 Therapy Proc, Neuromuscular Reeducation Of Movement Completed 08/30/2023 83512 Manual Cigar Head Perforator 1/> Area 15 Min Each Region Completed 08/30/2023 14460 Therapeutic Activities Direc t, Each 15 Minutes Completed 08/27/2023 53912 Therapeutic Activities Direc t, Each 15 Minutes Completed 08/27/2023 50180 Manual Cigar Head Perforator 1/> Area 15 Min Each Region Completed 08/27/2023 73628 Therapy Proc, Neuromuscular Reeducation Of Movement Completed 08/27/2023 83504 Therapy Proc 1/> Area 15Min Ea Completed 08/27/2023 55301 Hot/Cold Pack Completed 08/23/2023 15330 Therapeutic Activities Direc t, Each 15 Minutes Completed 08/23/2023 26101 Hot/Cold Pack Completed 08/23/2023 86522 Therapy Proc 1/> Area 15Min Ea Completed 08/23/2023 78151 Therapy Proc, Neuromuscular Reeducation Of Movement Completed 08/23/2023 28401 Manual Cigar Head Perforator 1/> Area 15 Min Each Region Completed 08/20/2023 96085 Therapeutic Activities Direc t, Each 15 Minutes Completed 08/20/2023 93727 Manual Cigar Head Perforator 1/> Area 15 Min Each Region Completed 08/20/2023 29595 Therapy Proc, Neuromuscular Reeducation Of Movement Completed 08/20/2023 96988 Therapy Proc 1/> Area 15Min Ea Completed 08/20/2023 47956 Hot/Cold Pack Completed 08/16/2023 65184 Therapeutic Activities Direc t, Each 15 Minutes Completed 08/16/2023 88037 Manual Cigar Head Perforator 1/> Area 15 Min Each Region Completed 08/16/2023 31606 Therapy Proc, Neuromuscular Reeducation Of Movement Completed 08/16/2023 29166 Therapy Proc 1/> Area 15Min Ea Completed 08/16/2023 48264 Hot/Cold Pack Completed 08/12/2023 72208 Hot/Cold Pack Completed 08/12/2023 61982 Therapy Proc 1/> Area 15Min Ea Completed 08/12/2023 17915 Manual Cigar Head Perforator 1/> Area 15 Min Each Region Completed 08/12/2023 88808 Therapy Proc, Neuromuscular Reeducation Of Movement Completed 08/12/2023 06481 Therapeutic Activities Direc t, Each 15 Minutes Completed 08/09/2023 43315 Therapeutic Activities Direc t, Each 15 Minutes Completed 08/09/2023 42830 Manual Cigar Head Perforator 1/> Area 15 Min Each Region Completed 08/09/2023 97582 Therapy Proc, Neuromuscular Reeducation Of Movement Completed 08/09/2023 45426 Therapy Proc 1/> Area 15Min Ea Completed 08/09/2023 62991 Hot/Cold Pack Completed 08/05/2023 95881 Hot/Cold Pack Completed 08/05/2023 62718 Therapy Proc, Neuromuscular Reeducation Of Movement Completed 08/05/2023 38779 Manual Cigar Head Perforator 1/> Area 15 Min Each Region Completed 08/05/2023 14615 Therapeutic Activities Direc t, Each 15 Minutes Completed 08/02/2023 61305 Therapeutic Activities Direc t, Each 15 Minutes Completed 08/02/2023 06500 Manual Cigar Head Perforator 1/> Area 15 Min Each Region Completed 08/02/2023 07991 Therapy Proc, Neuromuscular Reeducation Of Movement Completed 08/02/2023 28261 Therapy Proc 1/> Area 15Min Ea Completed 08/02/2023 36456 Hot/Cold Pack Completed 07/29/2023 64696 Hot/Cold Pack Completed 07/29/2023 28828 Therapy Proc 1/> Area 15Min Ea Completed 07/29/2023 72978 Therapy Proc, Neuromuscular Reeducation Of Movement Completed 07/29/2023 05715 Therapeutic Activities Direc t, Each 15 Minutes Completed 07/29/2023 44729 Manual Cigar Head Perforator 1/> Area 15 Min Each Region Completed 07/22/2023 99823 Therapeutic Activities Direc t, Each 15 Minutes Completed 07/22/2023 02298 Manual Cigar Head Perforator 1/> Area 15 Min Each Region Completed 07/22/2023 31088 Therapy Proc, Neuromuscular Reeducation Of Movement Completed 07/22/2023 71929 Therapy Proc 1/> Area 15Min Ea Completed 07/22/2023 20542 Hot/Cold Pack Completed 07/19/2023 48329 Therapy Proc, Neuromuscular Reeducation Of Movement Completed 07/19/2023 37647 Hot/Cold Pack Completed 07/19/2023 56459 Therapy Proc 1/> Area 15Min Ea Completed 07/19/2023 63791 Manual Cigar Head Perforator 1/> Area 15 Min Each Region Completed 07/19/2023 22799 Therapeutic Activities Direc t, Each 15 Minutes Completed 07/15/2023 75430 Therapeutic Activities Direc t, Each 15 Minutes Completed 07/15/2023 63654 Manual Cigar Head Perforator 1/> Area 15 Min Each Region Completed 07/15/2023 96434 Therapy Proc, Neuromuscular Reeducation Of Movement Completed 07/15/2023 85739 Hot/Cold Pack Completed 07/12/2023 70653 Therapeutic Activities Direc t, Each 15 Minutes Completed 07/12/2023 72601 Hot/Cold Pack Completed 07/12/2023 64782 Therapy Proc 1/> Area 15Min Ea Completed 07/12/2023 24980 Manual Cigar Head Perforator 1/> Area 15 Min Each Region Completed 07/12/2023 72208 Therapy Proc, Neuromuscular Reeducation Of Movement Completed 07/10/2023 54698 Manual Cigar Head Perforator 1/> Area 15 Min Each Region Completed 07/10/2023 82352 Therapy Proc, Neuromuscular Reeducation Of Movement Completed 07/10/2023 58612 Therapy Proc 1/> Area 15Min Ea Completed 07/10/2023 85858 Hot/Cold Pack Completed 07/10/2023 44742 Therapeutic Activities Direc t, Each 15 Minutes Completed 07/08/2023 91660 Hot/Cold Pack Completed 07/08/2023 66816 Therapy Proc 1/> Area 15Min Ea Completed 07/08/2023 62653 Therapy Proc, Neuromuscular Reeducation Of Movement Completed 07/08/2023 40731 Manual Cigar Head Perforator 1/> Area 15 Min Each Region Completed 07/08/2023 69248 Therapeutic Activities Direc t, Each 15 Minutes Completed 07/05/2023 06847 Therapeutic Activities Direc t, Each 15 Minutes Completed 07/05/2023 06479 Manual Cigar Head Perforator 1/> Area 15 Min Each Region Completed 07/05/2023 47455 Therapy Proc, Neuromuscular Reeducation Of Movement Completed 07/05/2023 30809 Therapy Proc 1/> Area 15Min Ea Completed 07/05/2023 39305 Hot/Cold Pack Completed 07/03/2023 99511 Therapeutic Activities Direc t, Each 15 Minutes Completed 07/03/2023 52868 Hot/Cold Pack Completed 07/03/2023 70348 Therapy Proc 1/> Area 15Min Ea Completed 07/03/2023 91395 Therapy Proc, Neuromuscular Reeducation Of Movement Completed 07/03/2023 66326 Manual Cigar Head Perforator 1/> Area 15 Min Each Region Completed 07/01/2023 28861 Therapeutic Activities Direc t, Each 15 Minutes Completed 07/01/2023 15151 Manual Cigar Head Perforator 1/> Area 15 Min Each Region Completed 07/01/2023 69033 Therapy Proc, Neuromuscular Reeducation Of Movement Completed 07/01/2023 49323 Therapy Proc 1/> Area 15Min Ea Completed 07/01/2023 77088 Hot/Cold Pack Completed 06/28/2023 29268 Therapeutic Activities Direc t, Each 15 Minutes Completed 06/28/2023 69223 Manual Cigar Head Perforator 1/> Area 15 Min Each Region Completed 06/28/2023 47248 Therapy Proc, Neuromuscular Reeducation Of Movement Completed 06/28/2023 78148 Therapy Proc 1/> Area 15Min Ea Completed 06/24/2023 31558 Hot/Cold Pack Completed 06/24/2023 44084 Therapy Proc 1/> Area 15Min Ea Completed 06/24/2023 31096 Manual Cigar Head Perforator 1/> Area 15 Min Each Region Completed 06/24/2023 41883 Therapeutic Activities Direc t, Each 15 Minutes Completed 06/24/2023 75324 Therapy Proc, Neuromuscular Reeducation Of Movement Completed 06/21/2023 80267 Therapeutic Activities Direc t, Each 15 Minutes Completed 06/21/2023 75493 Manual Cigar Head Perforator 1/> Area 15 Min Each Region Completed 06/21/2023 60168 Therapy Proc, Neuromuscular Reeducation Of Movement Completed 06/21/2023 54545 Therapy Proc 1/> Area 15Min Ea Completed 06/21/2023 53690 Hot/Cold Pack Completed 06/19/2023 93596 Therapeutic Activities Direc t, Each 15 Minutes Completed 06/19/2023 28135 Manual Cigar Head Perforator 1/> Area 15 Min Each Region Completed 06/19/2023 80342 Therapy Proc, Neuromuscular Reeducation Of Movement Completed 06/19/2023 36873 Therapy Proc 1/> Area 15Min Ea Completed 06/19/2023 78504 Hot/Cold Pack Completed 06/17/2023 96156 Hot/Cold Pack Completed 06/17/2023 58183 Therapy Proc 1/> Area 15Min Ea Completed 06/17/2023 49507 Manual Cigar Head Perforator 1/> Area 15 Min Each Region Completed 06/17/2023 56658 Therapeutic Activities Direc t, Each 15 Minutes Completed 06/17/2023 84304 Therapy Proc, Neuromuscular Reeducation Of Movement Completed 06/14/2023 58045 Therapeutic Activities Direc t, Each 15 Minutes Completed 06/14/2023 98643 Manual Cigar Head Perforator 1/> Area 15 Min Each Region Completed 06/14/2023 38982 Therapy Proc, Neuromuscular Reeducation Of Movement Completed 06/14/2023 53143 Therapy Proc 1/> Area 15Min Ea Completed 06/14/2023 18262 Hot/Cold Pack Completed 06/12/2023 83001 Therapy Proc, Neuromuscular Reeducation Of Movement Completed 06/12/2023 04616 Hot/Cold Pack Completed 06/12/2023 09131 Therapy Proc 1/> Area 15Min Ea Completed 06/12/2023 89314 Manual Cigar Head Perforator 1/> Area 15 Min Each Region Completed 06/12/2023 73856 Therapeutic Activities Direc t, Each 15 Minutes Completed 06/07/2023 14654 Therapeutic Activities Direc t, Each 15 Minutes Completed 06/07/2023 62273 Manual Cigar Head Perforator 1/> Area 15 Min Each Region Completed 06/07/2023 31105 Therapy Proc, Neuromuscular Reeducation Of Movement Completed 06/07/2023 12631 Therapy Proc 1/> Area 15Min Ea Completed 06/05/2023 64503 Therapeutic Activities Direc t, Each 15 Minutes Completed 06/05/2023 08528 Hot/Cold Pack Completed 06/05/2023 48732 Therapy Proc 1/> Area 15Min Ea Completed 06/05/2023 86972 Manual Cigar Head Perforator 1/> Area 15 Min Each Region Completed 06/05/2023 42648 Therapy Proc, Neuromuscular Reeducation Of Movement Completed 06/03/2023 58484 Manual Cigar Head Perforator 1/> Area 15 Min Each Region Completed 06/03/2023 35027 Therapy Proc, Neuromuscular Reeducation Of Movement Completed 06/03/2023 56072 Therapy Proc 1/> Area 15Min Ea Completed 06/03/2023 10018 Hot/Cold Pack Completed 06/03/2023 86700 Therapeutic Activities Direc t, Each 15 Minutes Completed 05/31/2023 44514 Hot/Cold Pack Completed 05/31/2023 46345 Therapy Proc, Neuromuscular Reeducation Of Movement Completed 05/31/2023 21301 Manual Cigar Head Perforator 1/> Area 15 Min Each Region Completed 05/31/2023 12658 Therapeutic Activities Direc t, Each 15 Minutes Completed 05/29/2023 50203 Therapeutic Activities Direc t, Each 15 Minutes Completed 05/29/2023 02738 Therapeutic Procedure Group Completed 05/29/2023 32584 Manual Cigar Head Perforator 1/> Area 15 Min Each Region Completed 05/29/2023 37518 Therapy Proc, Neuromuscular Reeducation Of Movement Completed 05/29/2023 67800 Hot/Cold Pack Completed 05/27/2023 89470 Therapeutic Procedure Group Completed 05/27/2023 54071 Hot/Cold Pack Completed 05/27/2023 24726 Therapy Proc, Neuromuscular Reeducation Of Movement Completed 05/27/2023 18222 Manual Cigar Head Perforator 1/> Area 15 Min Each Region Completed 05/27/2023 19289 Therapeutic Activities Direc t, Each 15 Minutes Completed 05/24/2023 35082 Therapeutic Activities Direc t, Each 15 Minutes Completed 05/24/2023 45558 Manual Cigar Head Perforator 1/> Area 15 Min Each Region Completed 05/24/2023 97501 Therapy Proc, Neuromuscular Reeducation Of Movement Completed 05/24/2023 85555 Therapy Proc 1/> Area 15Min Ea Completed 05/24/2023 67035 Hot/Cold Pack Completed 05/22/2023 53515 Therapeutic Activities Direc t, Each 15 Minutes Completed 05/22/2023 28693 Manual Cigar Head Perforator 1/> Area 15 Min Each Region Completed 05/22/2023 34271 Therapy Proc, Neuromuscular Reeducation Of Movement Completed 05/22/2023 63145 Therapy Proc 1/> Area 15Min Ea Completed 05/22/2023 71301 Hot/Cold Pack Completed 05/20/2023 06524 Hot/Cold Pack Completed 05/20/2023 69676 Therapy Proc 1/> Area 15Min Ea Completed 05/20/2023 59995 Manual Cigar Head Perforator 1/> Area 15 Min Each Region Completed 05/20/2023 30855 Therapeutic Activities Direc t, Each 15 Minutes Completed 05/20/2023 34812 Therapy Proc, Neuromuscular Reeducation Of Movement Completed 05/17/2023 39933 Therapeutic Activities Direc t, Each 15 Minutes Completed 05/17/2023 48102 Manual Cigar Head Perforator 1/> Area 15 Min Each Region Completed 05/17/2023 79673 Therapy Proc, Neuromuscular Reeducation Of Movement Completed 05/17/2023 95621 Therapy Proc 1/> Area 15Min Ea Completed 05/17/2023 84474 Hot/Cold Pack Completed 05/15/2023 73147 Therapeutic Activities Direc t, Each 15 Minutes Completed 05/15/2023 11968 Manual Cigar Head Perforator 1/> Area 15 Min Each Region Completed 05/15/2023 65150 Therapy Proc, Neuromuscular Reeducation Of Movement Completed 05/15/2023 23150 Therapy Proc 1/> Area 15Min Ea Completed 05/15/2023 61277 Hot/Cold Pack Completed 2023 18294 Hot/Cold Pack Completed 2023 73848 Therapy Proc 1/> Area 15Min Ea Completed 2023 71292 Manual Cigar Head Perforator 1/> Area 15 Min Each Region Completed 2023 17467 Therapeutic Activities Direc t, Each 15 Minutes Completed 2023 73616 Therapy Proc, Neuromuscular Reeducation Of Movement Completed 05/10/2023 37395 Therapeutic Activities Direc t, Each 15 Minutes Completed 05/10/2023 58587 Manual Cigar Head Perforator 1/> Area 15 Min Each Region Completed 05/10/2023 48550 Therapy Proc, Neuromuscular Reeducation Of Movement Completed 05/10/2023 31100 Therapy Proc 1/> Area 15Min Ea Completed 05/10/2023 93979 Hot/Cold Pack Completed 05/08/2023 87650 Therapy Proc, Neuromuscular Reeducation Of Movement Completed 05/08/2023 11512 Hot/Cold Pack Completed 05/08/2023 12350 Therapy Proc 1/> Area 15Min Ea Completed 05/08/2023 90095 Manual Cigar Head Perforator 1/> Area 15 Min Each Region Completed 05/08/2023 09245 Therapeutic Activities Direc t, Each 15 Minutes Completed 05/06/2023 28128 Therapeutic Activities Direc t, Each 15 Minutes Completed 05/06/2023 55188 Manual Cigar Head Perforator 1/> Area 15 Min Each Region Completed 05/06/2023 49060 Therapy Proc, Neuromuscular Reeducation Of Movement Completed 05/06/2023 37827 Therapy Proc 1/> Area 15Min Ea Completed 05/06/2023 99618 Hot/Cold Pack Completed 05/02/2023 64694 Therapy Proc 1/> Area 15Min Ea Completed 05/02/2023 46294 Manual Cigar Head Perforator 1/> Area 15 Min Each Region Completed 05/02/2023 05180 Therapeutic Activities Direc t, Each 15 Minutes Completed 05/02/2023 46661 Therapy Proc, Neuromuscular Reeducation Of Movement Completed 04/30/2023 23289 Therapy Proc, Neuromuscular Reeducation Of Movement Completed 04/30/2023 68086 Therapy Proc 1/> Area 15Min Ea Completed 04/30/2023 40253 Hot/Cold Pack Completed 04/30/2023 86926 Manual Cigar Head Perforator 1/> Area 15 Min Each Region Completed 04/24/2023 75143 Manual Cigar Head Perforator 1/> Area 15 Min Each Region Completed 04/24/2023 52993 Therapy Proc, Neuromuscular Reeducation Of Movement Completed 04/24/2023 98624 Therapy Proc 1/> Area 15Min Ea Completed 04/22/2023 98788 Therapy Proc, Neuromuscular Reeducation Of Movement Completed 04/22/2023 91414 Hot/Cold Pack Completed 04/22/2023 85192 Therapy Proc 1/> Area 15Min Ea Completed 04/22/2023 23453 Manual Cigar Head Perforator 1/> Area 15 Min Each Region Completed 04/19/2023 71926 Manual Cigar Head Perforator 1/> Area 15 Min Each Region Completed 04/19/2023 76125 Therapy Proc, Neuromuscular Reeducation Of Movement Completed 04/19/2023 38736 Therapy Proc 1/> Area 15Min Ea Completed 04/19/2023 75649 Hot/Cold Pack Completed 04/18/2023 43485 Manual Cigar Head Perforator 1/> Area 15 Min Each Region Completed 04/18/2023 59987 Therapy Proc 1/> Area 15Min Ea Completed 04/18/2023 04778 Therapy Proc, Neuromuscular Reeducation Of Movement Completed 04/15/2023 10307 Manual Cigar Head Perforator 1/> Area 15 Min Each Region Completed 04/15/2023 67427 Therapy Proc, Neuromuscular Reeducation Of Movement Completed 04/15/2023 64388 Therapy Proc 1/> Area 15Min Ea Completed 04/15/2023 68655 Hot/Cold Pack Completed 04/12/2023 48879 Manual Cigar Head Perforator 1/> Area 15 Min Each Region Completed 04/12/2023 44204 Therapy Proc, Neuromuscular Reeducation Of Movement Completed 04/12/2023 30767 Therapy Proc 1/> Area 15Min Ea Completed 04/12/2023 87226 Hot/Cold Pack Completed 04/10/2023 22098 Manual Cigar Head Perforator 1/> Area 15 Min Each Region Completed 04/10/2023 36786 Therapy Proc, Neuromuscular Reeducation Of Movement Completed 04/10/2023 42349 Therapy Proc 1/> Area 15Min Ea Completed 04/08/2023 62241 Therapy Proc 1/> Area 15Min Ea Completed 04/08/2023 62327 Manual Cigar Head Perforator 1/> Area 15 Min Each Region Completed 04/08/2023 08391 Therapy Proc, Neuromuscular Reeducation Of Movement Completed 04/05/2023 05346 Manual Cigar Head Perforator 1/> Area 15 Min Each Region Completed 04/05/2023 44780 Therapy Proc, Neuromuscular Reeducation Of Movement Completed 04/05/2023 89746 Therapy Proc 1/> Area 15Min Ea Completed 04/03/2023 26827 Manual Cigar Head Perforator 1/> Area 15 Min Each Region Completed 04/03/2023 14446 Therapy Proc, Neuromuscular Reeducation Of Movement Completed 04/03/2023 36780 Therapy Proc 1/> Area 15Min Ea Completed 04/01/2023 05547 Therapy Proc, Neuromuscular Reeducation Of Movement Completed 04/01/2023 85501 Therapy Proc 1/> Area 15Min Ea Completed 04/01/2023 51692 Manual Cigar Head Perforator 1/> Area 15 Min Each Region Completed 03/29/2023 37437 Manual Cigar Head Perforator 1/> Area 15 Min Each Region Completed 03/29/2023 97337 Therapy Proc, Neuromuscular Reeducation Of Movement Completed 03/29/2023 37750 Therapy Proc 1/> Area 15Min Ea Completed 03/27/2023 70648 Manual Cigar Head Perforator 1/> Area 15 Min Each Region Completed 03/27/2023 85941 Therapy Proc, Neuromuscular Reeducation Of Movement Completed 03/27/2023 09969 Therapy Proc 1/> Area 15Min Ea Completed 03/25/2023 88813 Manual Cigar Head Perforator 1/> Area 15 Min Each Region Completed 03/25/2023 87633 Therapy Proc 1/> Area 15Min Ea Completed 03/25/2023 93308 Therapy Proc, Neuromuscular Reeducation Of Movement Completed 03/22/2023 40928 Manual Cigar Head Perforator 1/> Area 15 Min Each Region Completed 03/22/2023 38376 Therapy Proc, Neuromuscular Reeducation Of Movement Completed 03/22/2023 13981 Therapy Proc 1/> Area 15Min Ea Completed 03/20/2023 23588 Manual Cigar Head Perforator 1/> Area 15 Min Each Region Completed 03/20/2023 29889 Therapy Proc, Neuromuscular Reeducation Of Movement Completed 03/20/2023 81403 Therapy Proc 1/> Area 15Min Ea Completed 03/18/2023 11178 Manual Cigar Head Perforator 1/> Area 15 Min Each Region Completed 03/18/2023 31188 Therapy Proc, Neuromuscular Reeducation Of Movement Completed 03/18/2023 56638 Therapy Proc 1/> Area 15Min Ea Completed 03/15/2023 71666 Manual Cigar Head Perforator 1/> Area 15 Min Each Region Completed 03/15/2023 22458 Therapy Proc, Neuromuscular Reeducation Of Movement Completed 03/15/2023 81593 Therapy Proc 1/> Area 15Min Ea Completed 03/13/2023 59228 Physical Therapy Evaluation Moderate Complexity Completed 03/13/2023 94600 Manual Cigar Head Perforator 1/> Area 15 Min Each Region Completed 03/13/2023 69897 Therapy Proc 1/> Area 15Min Ea Completed Medical Devices Description No Information Available Encounters Type Date Location Provider Dx Diagnosis Office Visit 09/06/2023 10:30a [place] Dawson Almodovar, DO I10 Essential (pr imary) [...] I10 Essential (primary) [facility] [place] 09/02/2023 R26.2 Difficulty in wa [place]king, not [...] in [place], not elsewhere classified Aki Gracia, DPT 06/14/2023 M25.511 Pain in right shoulder [...] 10:30 am - Dawson Almodovar DO at [place] * 03/06/2024 9:00 am - [facility] [place] Status Description No Information Available Mental Status Description No Information Available Referrals Description No Information Available
--- OUTSIDE RECORDS SUMMARY | 2023-10-11 13:14 | External Medical Summary | Continuity of Care Document ---
Author Name Unknown Organization Family Practice [facility] Address [address] [place] [address] Phone [phone] Problems Active Problems Provider Date Essential hypertension [...] SIG Qnty Indications Order ing Provider Date [id number] Tablets 2 tablets by mouth every day 30tabs R60.0 Dawson Almodovar DO 10/05/2022 Multi + [place]-3 Adult GummiesChewtabs 1 by mouth every day Dawson Almodovar DO 08/08/2022 Vitamin B ComplexTablets 1 by mouth every day Dawson Almodovar DO 08/08/2022 Losartan Potassium/Hydrochlorothi [id number] Tablets 1 by mouth every day 90tabs I10 Dawson Almodovar DO 03/21/2020 Juice Plus Fibre` Dawson Almodovar DO 02/19/2018 Aspirin Adult Low Srcz85ea Tablets DR 1 by mouth every day Unknown Citalopram Uimtkudvyyof39rh Tablets 1 by mouth every day 90tabs F41.1 Dawson Almodovar, DO Vitamin D3 Maximum [id number] (5000 Ut) Capsules 1 by mouth once daily Unknown Immunizations CPT Code Status Date Vaccine Lot # 41252 Given 07/14/2009 Pneumococcal Vaccine/Pneu movax 23 22886 Refused 09/06/2023 Sarscov2 Vaccin e 50 mcg/0.5 ML For Im Use 12 Yrs And Older 63767 Refused 09/06/2023 Pneumococcal Conjugate-Pr evnar 20 39780 Refused 10/19/2022 Shingrix 43139 Refused 08/08/2022 Pneumococcal Conjugate-Pr evnar 20 21493 Refused 08/08/2022 Influenza Vac, Split, Preservative Free High Dose Age 65 & > 35233 Refused 04/20/2022 Moderna Sars-Co v-2 (Cov-19) vacc,100 mcg/ 0.5 mL 12Y+EMR Doc Only 19137 Refused 10/16/2021 Influenza Virus Vaccine, Quadrivalent (Cciiv4), Derived From Cell 20031 Refused 10/16/2021 Shingrix 92393 Refused 10/16/2021 Pneumococcal Conjugate-Pr evnar 13 66953 Refused 03/20/2021 Pfizer Sars-Cov -2 (Cov-19) vacc 30mcg/0.3ML 12Y+ EMR Doc Only 15784 Refused 04/17/2019 Influenza Vacci ne, Inactivated, Subunit, Adjuvanted, For Intrmus 52966 Refused 01/29/2019 Tdap (Tetanus, diphtheria & acel. pertussis) Adacel or Boostrix 25469 Refused 01/29/2019 Pneumococcal Conjugate-Pr evnar 13 Vital Signs Date Vital Result Comment 09/06/2023 10:35am BP Systolic 130 mmHg BP Diastolic 78 mmHg Body Temperature 98.2 F Heart Rate 76 /min Respiratory Rate 16 /min Weight 205.31 lb Weight 93.130 kg Height 62 inches 5'2" BMI (Body Mass Index) 37.5 kg/m2 [place] Body Weight 110 lb 02/22/2023 10:40am BP Systolic 138 mmHg BP Diastolic 82 mmHg Body Temperature 98.2 F Heart Rate 84 /min Respiratory Rate 16 /min Weight 196.12 lb Weight 88.962 kg Results Test Acquired Date Facility Test Result H/L Range N ote BMP 09/05/2023 [facility] [address] [place], [place] [id number] [phone] Glucose 88 mg/dL 70-110 BUN 23 mg/dL 6-25 Creatinine 0.8 mg/dL 0.5-1.2 Sodium 138 mEq/L 135-145 Potassium 4.1 mEq/L 3.5-5.0 Chloride 100 mEq/L 95-107 Co-2 29 mEq/L 24-31 Calcium 9.4 mg/dL 8.5-10.6 GFR 72 ML/MIN/1.73SQM >60 Procedures Date Code Description Status 09/06/2023 1101F PT SCR Future Fall Risk, No Fall Or 1 W/Out Injury Completed 09/05/2023 66639 Venipuncture Routine Complet ed 09/02/2023 08472 Therapeutic Activities Direc t, Each 15 Minutes Completed 09/02/2023 59828 Manual Tractor Trailer Moving Van Driver 1/> Area 15 Min Each Region Completed 09/02/2023 38117 Therapy Proc, Neuromuscular Reeducation Of Movement Completed 09/02/2023 79565 Therapy Proc 1/> Area 15Min Ea Completed 09/02/2023 98645 Hot/Cold Pack Completed 08/30/2023 40956 Therapy Proc 1/> Area 15Min Ea Completed 08/30/2023 27625 Hot/Cold Pack Completed 08/30/2023 90271 Therapy Proc, Neuromuscular Reeducation Of Movement Completed 08/30/2023 64414 Manual Tractor Trailer Moving Van Driver 1/> Area 15 Min Each Region Completed 08/30/2023 97310 Therapeutic Activities Direc t, Each 15 Minutes Completed 08/27/2023 96043 Therapeutic Activities Direc t, Each 15 Minutes Completed 08/27/2023 25407 Manual Tractor Trailer Moving Van Driver 1/> Area 15 Min Each Region Completed 08/27/2023 06238 Therapy Proc, Neuromuscular Reeducation Of Movement Completed 08/27/2023 06550 Therapy Proc 1/> Area 15Min Ea Completed 08/27/2023 14994 Hot/Cold Pack Completed 08/23/2023 37926 Therapeutic Activities Direc t, Each 15 Minutes Completed 08/23/2023 24703 Hot/Cold Pack Completed 08/23/2023 86367 Therapy Proc 1/> Area 15Min Ea Completed 08/23/2023 89733 Therapy Proc, Neuromuscular Reeducation Of Movement Completed 08/23/2023 94570 Manual Tractor Trailer Moving Van Driver 1/> Area 15 Min Each Region Completed 08/20/2023 80145 Therapeutic Activities Direc t, Each 15 Minutes Completed 08/20/2023 59742 Manual Tractor Trailer Moving Van Driver 1/> Area 15 Min Each Region Completed 08/20/2023 66661 Therapy Proc, Neuromuscular Reeducation Of Movement Completed 08/20/2023 46295 Therapy Proc 1/> Area 15Min Ea Completed 08/20/2023 21615 Hot/Cold Pack Completed 08/16/2023 29773 Therapeutic Activities Direc t, Each 15 Minutes Completed 08/16/2023 44723 Manual Tractor Trailer Moving Van Driver 1/> Area 15 Min Each Region Completed 08/16/2023 44196 Therapy Proc, Neuromuscular Reeducation Of Movement Completed 08/16/2023 00633 Therapy Proc 1/> Area 15Min Ea Completed 08/16/2023 21543 Hot/Cold Pack Completed 08/12/2023 56610 Hot/Cold Pack Completed 08/12/2023 28986 Therapy Proc 1/> Area 15Min Ea Completed 08/12/2023 63481 Manual Tractor Trailer Moving Van Driver 1/> Area 15 Min Each Region Completed 08/12/2023 33252 Therapy Proc, Neuromuscular Reeducation Of Movement Completed 08/12/2023 22168 Therapeutic Activities Direc t, Each 15 Minutes Completed 08/09/2023 85127 Therapeutic Activities Direc t, Each 15 Minutes Completed 08/09/2023 59142 Manual Tractor Trailer Moving Van Driver 1/> Area 15 Min Each Region Completed 08/09/2023 56109 Therapy Proc, Neuromuscular Reeducation Of Movement Completed 08/09/2023 02321 Therapy Proc 1/> Area 15Min Ea Completed 08/09/2023 63463 Hot/Cold Pack Completed 08/05/2023 07879 Hot/Cold Pack Completed 08/05/2023 62303 Therapy Proc, Neuromuscular Reeducation Of Movement Completed 08/05/2023 84018 Manual Tractor Trailer Moving Van Driver 1/> Area 15 Min Each Region Completed 08/05/2023 86999 Therapeutic Activities Direc t, Each 15 Minutes Completed 08/02/2023 75841 Therapeutic Activities Direc t, Each 15 Minutes Completed 08/02/2023 43394 Manual Tractor Trailer Moving Van Driver 1/> Area 15 Min Each Region Completed 08/02/2023 30114 Therapy Proc, Neuromuscular Reeducation Of Movement Completed 08/02/2023 98807 Therapy Proc 1/> Area 15Min Ea Completed 08/02/2023 91320 Hot/Cold Pack Completed 07/29/2023 72525 Hot/Cold Pack Completed 07/29/2023 83963 Therapy Proc 1/> Area 15Min Ea Completed 07/29/2023 80580 Therapy Proc, Neuromuscular Reeducation Of Movement Completed 07/29/2023 36939 Therapeutic Activities Direc t, Each 15 Minutes Completed 07/29/2023 54742 Manual Tractor Trailer Moving Van Driver 1/> Area 15 Min Each Region Completed 07/22/2023 30324 Therapeutic Activities Direc t, Each 15 Minutes Completed 07/22/2023 16911 Manual Tractor Trailer Moving Van Driver 1/> Area 15 Min Each Region Completed 07/22/2023 08624 Therapy Proc, Neuromuscular Reeducation Of Movement Completed 07/22/2023 85749 Therapy Proc 1/> Area 15Min Ea Completed 07/22/2023 59922 Hot/Cold Pack Completed 07/19/2023 60219 Therapy Proc, Neuromuscular Reeducation Of Movement Completed 07/19/2023 89481 Hot/Cold Pack Completed 07/19/2023 27199 Therapy Proc 1/> Area 15Min Ea Completed 07/19/2023 13151 Manual Tractor Trailer Moving Van Driver 1/> Area 15 Min Each Region Completed 07/19/2023 70302 Therapeutic Activities Direc t, Each 15 Minutes Completed 07/15/2023 91515 Therapeutic Activities Direc t, Each 15 Minutes Completed 07/15/2023 57174 Manual Tractor Trailer Moving Van Driver 1/> Area 15 Min Each Region Completed 07/15/2023 74129 Therapy Proc, Neuromuscular Reeducation Of Movement Completed 07/15/2023 77389 Hot/Cold Pack Completed 07/12/2023 87236 Therapeutic Activities Direc t, Each 15 Minutes Completed 07/12/2023 99017 Hot/Cold Pack Completed 07/12/2023 97432 Therapy Proc 1/> Area 15Min Ea Completed 07/12/2023 72560 Manual Tractor Trailer Moving Van Driver 1/> Area 15 Min Each Region Completed 07/12/2023 19554 Therapy Proc, Neuromuscular Reeducation Of Movement Completed 07/10/2023 26601 Manual Tractor Trailer Moving Van Driver 1/> Area 15 Min Each Region Completed 07/10/2023 08140 Therapy Proc, Neuromuscular Reeducation Of Movement Completed 07/10/2023 82929 Therapy Proc 1/> Area 15Min Ea Completed 07/10/2023 88192 Hot/Cold Pack Completed 07/10/2023 80918 Therapeutic Activities Direc t, Each 15 Minutes Completed 07/08/2023 64894 Hot/Cold Pack Completed 07/08/2023 44089 Therapy Proc 1/> Area 15Min Ea Completed 07/08/2023 30928 Therapy Proc, Neuromuscular Reeducation Of Movement Completed 07/08/2023 42436 Manual Tractor Trailer Moving Van Driver 1/> Area 15 Min Each Region Completed 07/08/2023 27415 Therapeutic Activities Direc t, Each 15 Minutes Completed 07/05/2023 06104 Therapeutic Activities Direc t, Each 15 Minutes Completed 07/05/2023 47698 Manual Tractor Trailer Moving Van Driver 1/> Area 15 Min Each Region Completed 07/05/2023 84529 Therapy Proc, Neuromuscular Reeducation Of Movement Completed 07/05/2023 86600 Therapy Proc 1/> Area 15Min Ea Completed 07/05/2023 75298 Hot/Cold Pack Completed 07/03/2023 21389 Therapeutic Activities Direc t, Each 15 Minutes Completed 07/03/2023 47044 Hot/Cold Pack Completed 07/03/2023 74775 Therapy Proc 1/> Area 15Min Ea Completed 07/03/2023 55217 Therapy Proc, Neuromuscular Reeducation Of Movement Completed 07/03/2023 85497 Manual Tractor Trailer Moving Van Driver 1/> Area 15 Min Each Region Completed 07/01/2023 66447 Therapeutic Activities Direc t, Each 15 Minutes Completed 07/01/2023 87069 Manual Tractor Trailer Moving Van Driver 1/> Area 15 Min Each Region Completed 07/01/2023 56968 Therapy Proc, Neuromuscular Reeducation Of Movement Completed 07/01/2023 27960 Therapy Proc 1/> Area 15Min Ea Completed 07/01/2023 32885 Hot/Cold Pack Completed 06/28/2023 62432 Therapeutic Activities Direc t, Each 15 Minutes Completed 06/28/2023 83684 Manual Tractor Trailer Moving Van Driver 1/> Area 15 Min Each Region Completed 06/28/2023 16914 Therapy Proc, Neuromuscular Reeducation Of Movement Completed 06/28/2023 42716 Therapy Proc 1/> Area 15Min Ea Completed 06/24/2023 11919 Hot/Cold Pack Completed 06/24/2023 05339 Therapy Proc 1/> Area 15Min Ea Completed 06/24/2023 94523 Manual Tractor Trailer Moving Van Driver 1/> Area 15 Min Each Region Completed 06/24/2023 01974 Therapeutic Activities Direc t, Each 15 Minutes Completed 06/24/2023 15518 Therapy Proc, Neuromuscular Reeducation Of Movement Completed 06/21/2023 36731 Therapeutic Activities Direc t, Each 15 Minutes Completed 06/21/2023 49224 Manual Tractor Trailer Moving Van Driver 1/> Area 15 Min Each Region Completed 06/21/2023 83276 Therapy Proc, Neuromuscular Reeducation Of Movement Completed 06/21/2023 20855 Therapy Proc 1/> Area 15Min Ea Completed 06/21/2023 43511 Hot/Cold Pack Completed 06/19/2023 05767 Therapeutic Activities Direc t, Each 15 Minutes Completed 06/19/2023 74475 Manual Tractor Trailer Moving Van Driver 1/> Area 15 Min Each Region Completed 06/19/2023 54405 Therapy Proc, Neuromuscular Reeducation Of Movement Completed 06/19/2023 71906 Therapy Proc 1/> Area 15Min Ea Completed 06/19/2023 32836 Hot/Cold Pack Completed 06/17/2023 07740 Hot/Cold Pack Completed 06/17/2023 01766 Therapy Proc 1/> Area 15Min Ea Completed 06/17/2023 45990 Manual Tractor Trailer Moving Van Driver 1/> Area 15 Min Each Region Completed 06/17/2023 53025 Therapeutic Activities Direc t, Each 15 Minutes Completed 06/17/2023 65736 Therapy Proc, Neuromuscular Reeducation Of Movement Completed 06/14/2023 90008 Therapeutic Activities Direc t, Each 15 Minutes Completed 06/14/2023 76287 Manual Tractor Trailer Moving Van Driver 1/> Area 15 Min Each Region Completed 06/14/2023 74608 Therapy Proc, Neuromuscular Reeducation Of Movement Completed 06/14/2023 92016 Therapy Proc 1/> Area 15Min Ea Completed 06/14/2023 22937 Hot/Cold Pack Completed 06/12/2023 10066 Therapy Proc, Neuromuscular Reeducation Of Movement Completed 06/12/2023 06227 Hot/Cold Pack Completed 06/12/2023 56638 Therapy Proc 1/> Area 15Min Ea Completed 06/12/2023 11804 Manual Tractor Trailer Moving Van Driver 1/> Area 15 Min Each Region Completed 06/12/2023 62779 Therapeutic Activities Direc t, Each 15 Minutes Completed 06/07/2023 19810 Therapeutic Activities Direc t, Each 15 Minutes Completed 06/07/2023 36628 Manual Tractor Trailer Moving Van Driver 1/> Area 15 Min Each Region Completed 06/07/2023 07606 Therapy Proc, Neuromuscular Reeducation Of Movement Completed 06/07/2023 96392 Therapy Proc 1/> Area 15Min Ea Completed 06/05/2023 96953 Therapeutic Activities Direc t, Each 15 Minutes Completed 06/05/2023 49435 Hot/Cold Pack Completed 06/05/2023 37671 Therapy Proc 1/> Area 15Min Ea Completed 06/05/2023 97748 Manual Tractor Trailer Moving Van Driver 1/> Area 15 Min Each Region Completed 06/05/2023 43064 Therapy Proc, Neuromuscular Reeducation Of Movement Completed 06/03/2023 23902 Manual Tractor Trailer Moving Van Driver 1/> Area 15 Min Each Region Completed 06/03/2023 97543 Therapy Proc, Neuromuscular Reeducation Of Movement Completed 06/03/2023 73845 Therapy Proc 1/> Area 15Min Ea Completed 06/03/2023 50773 Hot/Cold Pack Completed 06/03/2023 03872 Therapeutic Activities Direc t, Each 15 Minutes Completed 05/31/2023 24395 Hot/Cold Pack Completed 05/31/2023 62083 Therapy Proc, Neuromuscular Reeducation Of Movement Completed 05/31/2023 21247 Manual Tractor Trailer Moving Van Driver 1/> Area 15 Min Each Region Completed 05/31/2023 50385 Therapeutic Activities Direc t, Each 15 Minutes Completed 05/29/2023 25383 Therapeutic Activities Direc t, Each 15 Minutes Completed 05/29/2023 42388 Therapeutic Procedure Group Completed 05/29/2023 68223 Manual Tractor Trailer Moving Van Driver 1/> Area 15 Min Each Region Completed 05/29/2023 99388 Therapy Proc, Neuromuscular Reeducation Of Movement Completed 05/29/2023 50392 Hot/Cold Pack Completed 05/27/2023 44775 Therapeutic Procedure Group Completed 05/27/2023 62188 Hot/Cold Pack Completed 05/27/2023 09839 Therapy Proc, Neuromuscular Reeducation Of Movement Completed 05/27/2023 00795 Manual Tractor Trailer Moving Van Driver 1/> Area 15 Min Each Region Completed 05/27/2023 92047 Therapeutic Activities Direc t, Each 15 Minutes Completed 05/24/2023 69951 Therapeutic Activities Direc t, Each 15 Minutes Completed 05/24/2023 39552 Manual Tractor Trailer Moving Van Driver 1/> Area 15 Min Each Region Completed 05/24/2023 28967 Therapy Proc, Neuromuscular Reeducation Of Movement Completed 05/24/2023 83323 Therapy Proc 1/> Area 15Min Ea Completed 05/24/2023 67560 Hot/Cold Pack Completed 05/22/2023 41737 Therapeutic Activities Direc t, Each 15 Minutes Completed 05/22/2023 34343 Manual Tractor Trailer Moving Van Driver 1/> Area 15 Min Each Region Completed 05/22/2023 31714 Therapy Proc, Neuromuscular Reeducation Of Movement Completed 05/22/2023 70196 Therapy Proc 1/> Area 15Min Ea Completed 05/22/2023 51082 Hot/Cold Pack Completed 05/20/2023 01418 Hot/Cold Pack Completed 05/20/2023 86229 Therapy Proc 1/> Area 15Min Ea Completed 05/20/2023 43800 Manual Tractor Trailer Moving Van Driver 1/> Area 15 Min Each Region Completed 05/20/2023 30325 Therapeutic Activities Direc t, Each 15 Minutes Completed 05/20/2023 77772 Therapy Proc, Neuromuscular Reeducation Of Movement Completed 05/17/2023 13630 Therapeutic Activities Direc t, Each 15 Minutes Completed 05/17/2023 09011 Manual Tractor Trailer Moving Van Driver 1/> Area 15 Min Each Region Completed 05/17/2023 61731 Therapy Proc, Neuromuscular Reeducation Of Movement Completed 05/17/2023 48189 Therapy Proc 1/> Area 15Min Ea Completed 05/17/2023 26997 Hot/Cold Pack Completed 05/15/2023 69887 Therapeutic Activities Direc t, Each 15 Minutes Completed 05/15/2023 53339 Manual Tractor Trailer Moving Van Driver 1/> Area 15 Min Each Region Completed 05/15/2023 32521 Therapy Proc, Neuromuscular Reeducation Of Movement Completed 05/15/2023 38663 Therapy Proc 1/> Area 15Min Ea Completed 05/15/2023 65010 Hot/Cold Pack Completed 2023 99142 Hot/Cold Pack Completed 2023 99516 Therapy Proc 1/> Area 15Min Ea Completed 2023 10437 Manual Tractor Trailer Moving Van Driver 1/> Area 15 Min Each Region Completed 2023 82157 Therapeutic Activities Direc t, Each 15 Minutes Completed 2023 99082 Therapy Proc, Neuromuscular Reeducation Of Movement Completed 05/10/2023 00791 Therapeutic Activities Direc t, Each 15 Minutes Completed 05/10/2023 13057 Manual Tractor Trailer Moving Van Driver 1/> Area 15 Min Each Region Completed 05/10/2023 02592 Therapy Proc, Neuromuscular Reeducation Of Movement Completed 05/10/2023 83170 Therapy Proc 1/> Area 15Min Ea Completed 05/10/2023 57419 Hot/Cold Pack Completed 05/08/2023 99814 Therapy Proc, Neuromuscular Reeducation Of Movement Completed 05/08/2023 12898 Hot/Cold Pack Completed 05/08/2023 61595 Therapy Proc 1/> Area 15Min Ea Completed 05/08/2023 28419 Manual Tractor Trailer Moving Van Driver 1/> Area 15 Min Each Region Completed 05/08/2023 70472 Therapeutic Activities Direc t, Each 15 Minutes Completed 05/06/2023 05514 Therapeutic Activities Direc t, Each 15 Minutes Completed 05/06/2023 99240 Manual Tractor Trailer Moving Van Driver 1/> Area 15 Min Each Region Completed 05/06/2023 29942 Therapy Proc, Neuromuscular Reeducation Of Movement Completed 05/06/2023 42890 Therapy Proc 1/> Area 15Min Ea Completed 05/06/2023 51524 Hot/Cold Pack Completed 05/02/2023 07325 Therapy Proc 1/> Area 15Min Ea Completed 05/02/2023 56785 Manual Tractor Trailer Moving Van Driver 1/> Area 15 Min Each Region Completed 05/02/2023 63100 Therapeutic Activities Direc t, Each 15 Minutes Completed 05/02/2023 25670 Therapy Proc, Neuromuscular Reeducation Of Movement Completed 04/30/2023 81396 Therapy Proc, Neuromuscular Reeducation Of Movement Completed 04/30/2023 39371 Therapy Proc 1/> Area 15Min Ea Completed 04/30/2023 54003 Hot/Cold Pack Completed 04/30/2023 86185 Manual Tractor Trailer Moving Van Driver 1/> Area 15 Min Each Region Completed 04/24/2023 50596 Manual Tractor Trailer Moving Van Driver 1/> Area 15 Min Each Region Completed 04/24/2023 92350 Therapy Proc, Neuromuscular Reeducation Of Movement Completed 04/24/2023 97567 Therapy Proc 1/> Area 15Min Ea Completed 04/22/2023 77303 Therapy Proc, Neuromuscular Reeducation Of Movement Completed 04/22/2023 98623 Hot/Cold Pack Completed 04/22/2023 94494 Therapy Proc 1/> Area 15Min Ea Completed 04/22/2023 91864 Manual Tractor Trailer Moving Van Driver 1/> Area 15 Min Each Region Completed 04/19/2023 95082 Manual Tractor Trailer Moving Van Driver 1/> Area 15 Min Each Region Completed 04/19/2023 63963 Therapy Proc, Neuromuscular Reeducation Of Movement Completed 04/19/2023 02316 Therapy Proc 1/> Area 15Min Ea Completed 04/19/2023 40679 Hot/Cold Pack Completed 04/18/2023 03849 Manual Tractor Trailer Moving Van Driver 1/> Area 15 Min Each Region Completed 04/18/2023 54282 Therapy Proc 1/> Area 15Min Ea Completed 04/18/2023 17455 Therapy Proc, Neuromuscular Reeducation Of Movement Completed 04/15/2023 20622 Manual Tractor Trailer Moving Van Driver 1/> Area 15 Min Each Region Completed 04/15/2023 55101 Therapy Proc, Neuromuscular Reeducation Of Movement Completed 04/15/2023 12057 Therapy Proc 1/> Area 15Min Ea Completed 04/15/2023 14802 Hot/Cold Pack Completed 04/12/2023 75863 Manual Tractor Trailer Moving Van Driver 1/> Area 15 Min Each Region Completed 04/12/2023 26584 Therapy Proc, Neuromuscular Reeducation Of Movement Completed 04/12/2023 21785 Therapy Proc 1/> Area 15Min Ea Completed 04/12/2023 86069 Hot/Cold Pack Completed 04/10/2023 59737 Manual Tractor Trailer Moving Van Driver 1/> Area 15 Min Each Region Completed 04/10/2023 56892 Therapy Proc, Neuromuscular Reeducation Of Movement Completed 04/10/2023 21325 Therapy Proc 1/> Area 15Min Ea Completed 04/08/2023 28199 Therapy Proc 1/> Area 15Min Ea Completed 04/08/2023 08506 Manual Tractor Trailer Moving Van Driver 1/> Area 15 Min Each Region Completed 04/08/2023 53642 Therapy Proc, Neuromuscular Reeducation Of Movement Completed 04/05/2023 83167 Manual Tractor Trailer Moving Van Driver 1/> Area 15 Min Each Region Completed 04/05/2023 16649 Therapy Proc, Neuromuscular Reeducation Of Movement Completed 04/05/2023 02430 Therapy Proc 1/> Area 15Min Ea Completed 04/03/2023 45135 Manual Tractor Trailer Moving Van Driver 1/> Area 15 Min Each Region Completed 04/03/2023 04570 Therapy Proc, Neuromuscular Reeducation Of Movement Completed 04/03/2023 41860 Therapy Proc 1/> Area 15Min Ea Completed 04/01/2023 53684 Therapy Proc, Neuromuscular Reeducation Of Movement Completed 04/01/2023 78670 Therapy Proc 1/> Area 15Min Ea Completed 04/01/2023 80297 Manual Tractor Trailer Moving Van Driver 1/> Area 15 Min Each Region Completed 03/29/2023 88165 Manual Tractor Trailer Moving Van Driver 1/> Area 15 Min Each Region Completed 03/29/2023 09808 Therapy Proc, Neuromuscular Reeducation Of Movement Completed 03/29/2023 87867 Therapy Proc 1/> Area 15Min Ea Completed 03/27/2023 12314 Manual Tractor Trailer Moving Van Driver 1/> Area 15 Min Each Region Completed 03/27/2023 04934 Therapy Proc, Neuromuscular Reeducation Of Movement Completed 03/27/2023 85635 Therapy Proc 1/> Area 15Min Ea Completed 03/25/2023 69491 Manual Tractor Trailer Moving Van Driver 1/> Area 15 Min Each Region Completed 03/25/2023 97007 Therapy Proc 1/> Area 15Min Ea Completed 03/25/2023 46739 Therapy Proc, Neuromuscular Reeducation Of Movement Completed 03/22/2023 73778 Manual Tractor Trailer Moving Van Driver 1/> Area 15 Min Each Region Completed 03/22/2023 29392 Therapy Proc, Neuromuscular Reeducation Of Movement Completed 03/22/2023 73055 Therapy Proc 1/> Area 15Min Ea Completed 03/20/2023 28062 Manual Tractor Trailer Moving Van Driver 1/> Area 15 Min Each Region Completed 03/20/2023 69610 Therapy Proc, Neuromuscular Reeducation Of Movement Completed 03/20/2023 87107 Therapy Proc 1/> Area 15Min Ea Completed 03/18/2023 88341 Manual Tractor Trailer Moving Van Driver 1/> Area 15 Min Each Region Completed 03/18/2023 17718 Therapy Proc, Neuromuscular Reeducation Of Movement Completed 03/18/2023 20623 Therapy Proc 1/> Area 15Min Ea Completed 03/15/2023 93027 Manual Tractor Trailer Moving Van Driver 1/> Area 15 Min Each Region Completed 03/15/2023 54748 Therapy Proc, Neuromuscular Reeducation Of Movement Completed 03/15/2023 90517 Therapy Proc 1/> Area 15Min Ea Completed 03/13/2023 98081 Physical Therapy Evaluation Moderate Complexity Completed 03/13/2023 55204 Manual Tractor Trailer Moving Van Driver 1/> Area 15 Min Each Region Completed 03/13/2023 99808 Therapy Proc 1/> Area 15Min Ea Completed Medical Devices Description No Information Available Encounters Type Date Location Provider Dx Diagnosis Office Visit 09/06/2023 10:30a [place] Dawson Almodovar, DO I10 Essential (pr imary) [...] I10 Essential (primary) [facility] [place] 09/02/2023 R26.2 Difficulty in wa lking, not [...] lking, not elsewhere classified Aik Garcia, DPT 05/22/2023 M25.511 Pain in right [...] lking, not elsewhere classified Aik Garcia, DPT 04/08/2023 M25.511 Pain in right [...] 10:30 am - Dawson Almodovar DO at [place] * 03/06/2024 9:00 am - [facility] [place] Functional Status Description No Information Available Mental Status Description No Information Available Referrals Description No Information Available
--- OUTSIDE RECORDS SUMMARY | 2023-10-11 13:14 | External Medical Summary | Continuity of Care Document ---
Author Name Unknown Organization Family Practice [facility] Address [address] [place] [address] Phone [phone] Problems Active Problems Provider Date Essential hypertension [...] SIG Qnty Indications Order ing Provider Date [id number] Tablets 2 tablets by mouth every day 30tabs R60.0 Dawson Almodovar DO 10/05/2022 Multi + Veteran-3 Adult GummiesChewtabs 1 by mouth every day Dawson Almodovar DO 08/08/2022 Vitamin B ComplexTablets 1 by mouth every day Dawson Almodovar DO 08/08/2022 Losartan Potassium/Hydrochlorothi [id number] Tablets 1 by mouth every day 90tabs I10 Dawson Almodovar DO 03/21/2020 Juice Plus Fibre` Dawson Almodovar DO 02/19/2018 Aspirin Adult Low Qjfj05li Tablets DR 1 by mouth every day Unknown Citalopram [id number] Tablets 1 by mouth every day 90tabs F41.1 Dawson Almodovar, DO Vitamin D3 Maximum [id number] (5000 Ut) Capsules 1 by mouth once daily Unknown Immunizations CPT Code Status Date Vaccine Lot # [id number] Given 07/14/2009 Pneumococcal Vaccine/Pneu movax 23 [id number] Refused 10/19/2022 Shingrix 92911 Refused 08/08/2022 Pneumococcal Conjugate-Pr evnar 20 73249 Refused 08/08/2022 Influenza Vac, Split, Preservative Free High Dose Age 65 & > 97934 Refused 04/20/2022 Moderna Sars-Co v-2 (Cov-19) vacc,100 mcg/ 0.5 mL 12Y+EMR Doc Only 89588 Refused 10/16/2021 Influenza Virus Vaccine, Quadrivalent (Cciiv4), Derived From Cell 15394 Refused 10/16/2021 Shingrix 42431 Refused 10/16/2021 Pneumococcal Conjugate-Pr evnar 13 80380 Refused 03/20/2021 Pfizer Sars-Cov -2 (Cov-19) vacc 30mcg/0.3ML 12Y+ EMR Doc Only 40641 Refused 04/17/2019 Influenza Vacci ne, Inactivated, Subunit, Adjuvanted, For Intrmusc 47139 Refused 01/29/2019 Tdap (Tetanus, diphtheria & acel. pertussis) Adacel or Boostrix 72529 Refused 01/29/2019 Pneumococcal Conjugate-Pr evnar 13 Vital [...] kg Procedures Date Code Description Status 09/05/2023 84763 Venipuncture Routine Complet ed 08/27/2023 94207 Therapeutic Activities Direc t, Each 15 Minutes Completed 08/27/2023 28044 Manual Cap Jewel Plate Assembler 1/> Area 15 Min Each Region Completed 08/27/2023 67615 Therapy Proc, Neuromuscular Reeducation Of Movement Completed 08/27/2023 78190 Therapy Proc 1/> Area 15Min Ea Completed 08/27/2023 97473 Hot/Cold Pack Completed 08/23/2023 99356 Therapy Proc 1/> Area 15Min Ea Completed 08/23/2023 05517 Hot/Cold Pack Completed 08/23/2023 25223 Therapy Proc, Neuromuscular Reeducation Of Movement Completed 08/23/2023 42953 Manual Cap Jewel Plate Assembler 1/> Area 15 Min Each Region Completed 08/23/2023 56231 Therapeutic Activities Direc t, Each 15 Minutes Completed 08/20/2023 20789 Therapeutic Activities Direc t, Each 15 Minutes Completed 08/20/2023 46003 Manual Cap Jewel Plate Assembler 1/> Area 15 Min Each Region Completed 08/20/2023 15187 Therapy Proc, Neuromuscular Reeducation Of Movement Completed 08/20/2023 20452 Therapy Proc 1/> Area 15Min Ea Completed 08/20/2023 31742 Hot/Cold Pack Completed 08/16/2023 04702 Therapeutic Activities Direc t, Each 15 Minutes Completed 08/16/2023 32120 Hot/Cold Pack Completed 08/16/2023 65795 Therapy Proc 1/> Area 15Min Ea Completed 08/16/2023 34419 Therapy Proc, Neuromuscular Reeducation Of Movement Completed 08/16/2023 95381 Manual Cap Jewel Plate Assembler 1/> Area 15 Min Each Region Completed 08/12/2023 61523 Therapeutic Activities Direc t, Each 15 Minutes Completed 08/12/2023 75182 Manual Cap Jewel Plate Assembler 1/> Area 15 Min Each Region Completed 08/12/2023 50529 Therapy Proc, Neuromuscular Reeducation Of Movement Completed 08/12/2023 72567 Therapy Proc 1/> Area 15Min Ea Completed 08/12/2023 82872 Hot/Cold Pack Completed 08/09/2023 23109 Therapeutic Activities Direc t, Each 15 Minutes Completed 08/09/2023 57799 Manual Cap Jewel Plate Assembler 1/> Area 15 Min Each Region Completed 08/09/2023 72827 Therapy Proc, Neuromuscular Reeducation Of Movement Completed 08/09/2023 26773 Therapy Proc 1/> Area 15Min Ea Completed 08/09/2023 34207 Hot/Cold Pack Completed 08/05/2023 66162 Therapy Proc, Neuromuscular Reeducation Of Movement Completed 08/05/2023 51223 Hot/Cold Pack Completed 08/05/2023 44735 Manual Cap Jewel Plate Assembler 1/> Area 15 Min Each Region Completed 08/05/2023 95711 Therapeutic Activities Direc t, Each 15 Minutes Completed 08/02/2023 08761 Therapeutic Activities Direc t, Each 15 Minutes Completed 08/02/2023 70063 Manual Cap Jewel Plate Assembler 1/> Area 15 Min Each Region Completed 08/02/2023 20169 Therapy Proc, Neuromuscular Reeducation Of Movement Completed 08/02/2023 19345 Therapy Proc 1/> Area 15Min Ea Completed 08/02/2023 89965 Hot/Cold Pack Completed 07/29/2023 24406 Therapeutic Activities Direc t, Each 15 Minutes Completed 07/29/2023 39349 Manual Cap Jewel Plate Assembler 1/> Area 15 Min Each Region Completed 07/29/2023 60070 Therapy Proc, Neuromuscular Reeducation Of Movement Completed 07/29/2023 55384 Therapy Proc 1/> Area 15Min Ea Completed 07/29/2023 41244 Hot/Cold Pack Completed 07/22/2023 82672 Hot/Cold Pack Completed 07/22/2023 38905 Therapy Proc 1/> Area 15Min Ea Completed 07/22/2023 48226 Manual Cap Jewel Plate Assembler 1/> Area 15 Min Each Region Completed 07/22/2023 91336 Therapeutic Activities Direc t, Each 15 Minutes Completed 07/22/2023 41934 Therapy Proc, Neuromuscular Reeducation Of Movement Completed 07/19/2023 26443 Therapeutic Activities Direc t, Each 15 Minutes Completed 07/19/2023 86586 Manual Cap Jewel Plate Assembler 1/> Area 15 Min Each Region Completed 07/19/2023 17111 Therapy Proc, Neuromuscular Reeducation Of Movement Completed 07/19/2023 38739 Therapy Proc 1/> Area 15Min Ea Completed 07/19/2023 19575 Hot/Cold Pack Completed 07/15/2023 04475 Manual Cap Jewel Plate Assembler 1/> Area 15 Min Each Region Completed 07/15/2023 51879 Hot/Cold Pack Completed 07/15/2023 49207 Therapy Proc, Neuromuscular Reeducation Of Movement Completed 07/15/2023 39576 Therapeutic Activities Direc t, Each 15 Minutes Completed 07/12/2023 43278 Therapeutic Activities Direc t, Each 15 Minutes Completed 07/12/2023 21638 Manual Cap Jewel Plate Assembler 1/> Area 15 Min Each Region Completed 07/12/2023 99289 Therapy Proc, Neuromuscular Reeducation Of Movement Completed 07/12/2023 11170 Therapy Proc 1/> Area 15Min Ea Completed 07/12/2023 65155 Hot/Cold Pack Completed 07/10/2023 35688 Therapy Proc 1/> Area 15Min Ea Completed 07/10/2023 84298 Hot/Cold Pack Completed 07/10/2023 81109 Therapy Proc, Neuromuscular Reeducation Of Movement Completed 07/10/2023 41115 Therapeutic Activities Direc t, Each 15 Minutes Completed 07/10/2023 55120 Manual Cap Jewel Plate Assembler 1/> Area 15 Min Each Region Completed 07/08/2023 80744 Therapeutic Activities Direc t, Each 15 Minutes Completed 07/08/2023 48660 Hot/Cold Pack Completed 07/08/2023 39494 Therapy Proc 1/> Area 15Min Ea Completed 07/08/2023 53847 Manual Cap Jewel Plate Assembler 1/> Area 15 Min Each Region Completed 07/08/2023 35306 Therapy Proc, Neuromuscular Reeducation Of Movement Completed 07/05/2023 65337 Therapeutic Activities Direc t, Each 15 Minutes Completed 07/05/2023 62158 Manual Cap Jewel Plate Assembler 1/> Area 15 Min Each Region Completed 07/05/2023 10055 Therapy Proc, Neuromuscular Reeducation Of Movement Completed 07/05/2023 12743 Therapy Proc 1/> Area 15Min Ea Completed 07/05/2023 73173 Hot/Cold Pack Completed 07/03/2023 31438 Therapeutic Activities Direc t, Each 15 Minutes Completed 07/03/2023 55132 Manual Cap Jewel Plate Assembler 1/> Area 15 Min Each Region Completed 07/03/2023 27045 Therapy Proc, Neuromuscular Reeducation Of Movement Completed 07/03/2023 49303 Therapy Proc 1/> Area 15Min Ea Completed 07/03/2023 60084 Hot/Cold Pack Completed 07/01/2023 44165 Therapy Proc, Neuromuscular Reeducation Of Movement Completed 07/01/2023 77713 Hot/Cold Pack Completed 07/01/2023 86017 Therapy Proc 1/> Area 15Min Ea Completed 07/01/2023 30686 Manual Cap Jewel Plate Assembler 1/> Area 15 Min Each Region Completed 07/01/2023 96048 Therapeutic Activities Direc t, Each 15 Minutes Completed 06/28/2023 99231 Therapeutic Activities Direc t, Each 15 Minutes Completed 06/28/2023 26222 Manual Cap Jewel Plate Assembler 1/> Area 15 Min Each Region Completed 06/28/2023 33888 Therapy Proc, Neuromuscular Reeducation Of Movement Completed 06/28/2023 65511 Therapy Proc 1/> Area 15Min Ea Completed 06/24/2023 02485 Therapeutic Activities Direc t, Each 15 Minutes Completed 06/24/2023 77117 Manual Cap Jewel Plate Assembler 1/> Area 15 Min Each Region Completed 06/24/2023 11342 Therapy Proc, Neuromuscular Reeducation Of Movement Completed 06/24/2023 70007 Therapy Proc 1/> Area 15Min Ea Completed 06/24/2023 90215 Hot/Cold Pack Completed 06/21/2023 05895 Hot/Cold Pack Completed 06/21/2023 75917 Therapy Proc 1/> Area 15Min Ea Completed 06/21/2023 77106 Therapy Proc, Neuromuscular Reeducation Of Movement Completed 06/21/2023 00189 Therapeutic Activities Direc t, Each 15 Minutes Completed 06/21/2023 53870 Manual Cap Jewel Plate Assembler 1/> Area 15 Min Each Region Completed 06/19/2023 27184 Therapeutic Activities Direc t, Each 15 Minutes Completed 06/19/2023 41599 Manual Cap Jewel Plate Assembler 1/> Area 15 Min Each Region Completed 06/19/2023 88042 Therapy Proc, Neuromuscular Reeducation Of Movement Completed 06/19/2023 94382 Therapy Proc 1/> Area 15Min Ea Completed 06/19/2023 10798 Hot/Cold Pack Completed 06/17/2023 97509 Therapeutic Activities Direc t, Each 15 Minutes Completed 06/17/2023 09296 Manual Cap Jewel Plate Assembler 1/> Area 15 Min Each Region Completed 06/17/2023 75869 Therapy Proc, Neuromuscular Reeducation Of Movement Completed 06/17/2023 00688 Therapy Proc 1/> Area 15Min Ea Completed 06/17/2023 30764 Hot/Cold Pack Completed 06/14/2023 28231 Hot/Cold Pack Completed 06/14/2023 64095 Therapy Proc 1/> Area 15Min Ea Completed 06/14/2023 61933 Manual Cap Jewel Plate Assembler 1/> Area 15 Min Each Region Completed 06/14/2023 80476 Therapeutic Activities Direc t, Each 15 Minutes Completed 06/14/2023 16684 Therapy Proc, Neuromuscular Reeducation Of Movement Completed 06/12/2023 23050 Therapeutic Activities Direc t, Each 15 Minutes Completed 06/12/2023 50048 Manual Cap Jewel Plate Assembler 1/> Area 15 Min Each Region Completed 06/12/2023 60452 Therapy Proc, Neuromuscular Reeducation Of Movement Completed 06/12/2023 95722 Therapy Proc 1/> Area 15Min Ea Completed 06/12/2023 46220 Hot/Cold Pack Completed 06/07/2023 25424 Manual Cap Jewel Plate Assembler 1/> Area 15 Min Each Region Completed 06/07/2023 07378 Therapy Proc 1/> Area 15Min Ea Completed 06/07/2023 91736 Therapy Proc, Neuromuscular Reeducation Of Movement Completed 06/07/2023 48046 Therapeutic Activities Direc t, Each 15 Minutes Completed 06/05/2023 12598 Therapeutic Activities Direc t, Each 15 Minutes Completed 06/05/2023 41065 Manual Cap Jewel Plate Assembler 1/> Area 15 Min Each Region Completed 06/05/2023 04409 Therapy Proc, Neuromuscular Reeducation Of Movement Completed 06/05/2023 84839 Therapy Proc 1/> Area 15Min Ea Completed 06/05/2023 52493 Hot/Cold Pack Completed 06/03/2023 48570 Therapy Proc 1/> Area 15Min Ea Completed 06/03/2023 00277 Hot/Cold Pack Completed 06/03/2023 60861 Therapeutic Activities Direc t, Each 15 Minutes Completed 06/03/2023 61105 Manual Cap Jewel Plate Assembler 1/> Area 15 Min Each Region Completed 06/03/2023 82795 Therapy Proc, Neuromuscular Reeducation Of Movement Completed 05/31/2023 96256 Therapeutic Activities Direc t, Each 15 Minutes Completed 05/31/2023 55624 Manual Cap Jewel Plate Assembler 1/> Area 15 Min Each Region Completed 05/31/2023 58009 Therapy Proc, Neuromuscular Reeducation Of Movement Completed 05/31/2023 95007 Hot/Cold Pack Completed 05/29/2023 25304 Therapy Proc, Neuromuscular Reeducation Of Movement Completed 05/29/2023 14546 Hot/Cold Pack Completed 05/29/2023 98888 Manual Cap Jewel Plate Assembler 1/> Area 15 Min Each Region Completed 05/29/2023 75227 Therapeutic Procedure Group Completed 05/29/2023 75233 Therapeutic Activities Direc t, Each 15 Minutes Completed 05/27/2023 34158 Therapeutic Activities Direc t, Each 15 Minutes Completed 05/27/2023 03120 Therapeutic Procedure Group Completed 05/27/2023 67079 Manual Cap Jewel Plate Assembler 1/> Area 15 Min Each Region Completed 05/27/2023 12787 Therapy Proc, Neuromuscular Reeducation Of Movement Completed 05/27/2023 86144 Hot/Cold Pack Completed 05/24/2023 35341 Manual Cap Jewel Plate Assembler 1/> Area 15 Min Each Region Completed 05/24/2023 26034 Hot/Cold Pack Completed 05/24/2023 48825 Therapy Proc 1/> Area 15Min Ea Completed 05/24/2023 57745 Therapy Proc, Neuromuscular Reeducation Of Movement Completed 05/24/2023 08701 Therapeutic Activities Direc t, Each 15 Minutes Completed 05/22/2023 22196 Therapeutic Activities Direc t, Each 15 Minutes Completed 05/22/2023 19554 Manual Cap Jewel Plate Assembler 1/> Area 15 Min Each Region Completed 05/22/2023 70963 Therapy Proc, Neuromuscular Reeducation Of Movement Completed 05/22/2023 64496 Therapy Proc 1/> Area 15Min Ea Completed 05/22/2023 06337 Hot/Cold Pack Completed 05/20/2023 01037 Therapeutic Activities Direc t, Each 15 Minutes Completed 05/20/2023 36061 Manual Cap Jewel Plate Assembler 1/> Area 15 Min Each Region Completed 05/20/2023 19775 Therapy Proc, Neuromuscular Reeducation Of Movement Completed 05/20/2023 20551 Therapy Proc 1/> Area 15Min Ea Completed 05/20/2023 28452 Hot/Cold Pack Completed 05/17/2023 04837 Therapy Proc, Neuromuscular Reeducation Of Movement Completed 05/17/2023 10665 Hot/Cold Pack Completed 05/17/2023 26590 Therapy Proc 1/> Area 15Min Ea Completed 05/17/2023 64235 Manual Cap Jewel Plate Assembler 1/> Area 15 Min Each Region Completed 05/17/2023 72706 Therapeutic Activities Direc t, Each 15 Minutes Completed 05/15/2023 68537 Therapeutic Activities Direc t, Each 15 Minutes Completed 05/15/2023 07323 Manual Cap Jewel Plate Assembler 1/> Area 15 Min Each Region Completed 05/15/2023 78901 Therapy Proc, Neuromuscular Reeducation Of Movement Completed 05/15/2023 86417 Therapy Proc 1/> Area 15Min Ea Completed 05/15/2023 25213 Hot/Cold Pack Completed 2023 98327 Therapeutic Activities Direc t, Each 15 Minutes Completed 2023 03858 Manual Cap Jewel Plate Assembler 1/> Area 15 Min Each Region Completed 2023 99555 Therapy Proc, Neuromuscular Reeducation Of Movement Completed 2023 09066 Therapy Proc 1/> Area 15Min Ea Completed 2023 35477 Hot/Cold Pack Completed 05/10/2023 36002 Hot/Cold Pack Completed 05/10/2023 36597 Therapy Proc 1/> Area 15Min Ea Completed 05/10/2023 14602 Manual Cap Jewel Plate Assembler 1/> Area 15 Min Each Region Completed 05/10/2023 73152 Therapeutic Activities Direc t, Each 15 Minutes Completed 05/10/2023 47681 Therapy Proc, Neuromuscular Reeducation Of Movement Completed 05/08/2023 26771 Therapeutic Activities Direc t, Each 15 Minutes Completed 05/08/2023 66536 Manual Cap Jewel Plate Assembler 1/> Area 15 Min Each Region Completed 05/08/2023 91342 Therapy Proc, Neuromuscular Reeducation Of Movement Completed 05/08/2023 04159 Therapy Proc 1/> Area 15Min Ea Completed 05/08/2023 84166 Hot/Cold Pack Completed 05/06/2023 26852 Manual Cap Jewel Plate Assembler 1/> Area 15 Min Each Region Completed 05/06/2023 90517 Hot/Cold Pack Completed 05/06/2023 71374 Therapy Proc 1/> Area 15Min Ea Completed 05/06/2023 65363 Therapy Proc, Neuromuscular Reeducation Of Movement Completed 05/06/2023 77409 Therapeutic Activities Direc t, Each 15 Minutes Completed 05/02/2023 79586 Therapeutic Activities Direc t, Each 15 Minutes Completed 05/02/2023 18311 Manual Cap Jewel Plate Assembler 1/> Area 15 Min Each Region Completed 05/02/2023 53016 Therapy Proc, Neuromuscular Reeducation Of Movement Completed 05/02/2023 87114 Therapy Proc 1/> Area 15Min Ea Completed 04/30/2023 05166 Manual Cap Jewel Plate Assembler 1/> Area 15 Min Each Region Completed 04/30/2023 21080 Hot/Cold Pack Completed 04/30/2023 99999 Therapy Proc, Neuromuscular Reeducation Of Movement Completed 04/30/2023 68128 Therapy Proc 1/> Area 15Min Ea Completed 04/24/2023 63091 Therapy Proc, Neuromuscular Reeducation Of Movement Completed 04/24/2023 83783 Therapy Proc 1/> Area 15Min Ea Completed 04/24/2023 99039 Manual Cap Jewel Plate Assembler 1/> Area 15 Min Each Region Completed 04/22/2023 21480 Manual Cap Jewel Plate Assembler 1/> Area 15 Min Each Region Completed 04/22/2023 42469 Therapy Proc, Neuromuscular Reeducation Of Movement Completed 04/22/2023 79420 Therapy Proc 1/> Area 15Min Ea Completed 04/22/2023 41913 Hot/Cold Pack Completed 04/19/2023 16604 Manual Cap Jewel Plate Assembler 1/> Area 15 Min Each Region Completed 04/19/2023 44628 Therapy Proc, Neuromuscular Reeducation Of Movement Completed 04/19/2023 78204 Therapy Proc 1/> Area 15Min Ea Completed 04/19/2023 70070 Hot/Cold Pack Completed 04/18/2023 02342 Manual Cap Jewel Plate Assembler 1/> Area 15 Min Each Region Completed 04/18/2023 16198 Therapy Proc, Neuromuscular Reeducation Of Movement Completed 04/18/2023 62986 Therapy Proc 1/> Area 15Min Ea Completed 04/15/2023 56846 Therapy Proc, Neuromuscular Reeducation Of Movement Completed 04/15/2023 85126 Hot/Cold Pack Completed 04/15/2023 73948 Therapy Proc 1/> Area 15Min Ea Completed 04/15/2023 59675 Manual Cap Jewel Plate Assembler 1/> Area 15 Min Each Region Completed 04/12/2023 63460 Manual Cap Jewel Plate Assembler 1/> Area 15 Min Each Region Completed 04/12/2023 09607 Therapy Proc, Neuromuscular Reeducation Of Movement Completed 04/12/2023 46861 Therapy Proc 1/> Area 15Min Ea Completed 04/12/2023 85663 Hot/Cold Pack Completed 04/10/2023 73664 Manual Cap Jewel Plate Assembler 1/> Area 15 Min Each Region Completed 04/10/2023 48859 Therapy Proc, Neuromuscular Reeducation Of Movement Completed 04/10/2023 47178 Therapy Proc 1/> Area 15Min Ea Completed 04/08/2023 34322 Manual Cap Jewel Plate Assembler 1/> Area 15 Min Each Region Completed 04/08/2023 76376 Therapy Proc, Neuromuscular Reeducation Of Movement Completed 04/08/2023 39499 Therapy Proc 1/> Area 15Min Ea Completed 04/05/2023 62653 Therapy Proc 1/> Area 15Min Ea Completed 04/05/2023 77174 Therapy Proc, Neuromuscular Reeducation Of Movement Completed 04/05/2023 29970 Manual Cap Jewel Plate Assembler 1/> Area 15 Min Each Region Completed 04/03/2023 01295 Manual Cap Jewel Plate Assembler 1/> Area 15 Min Each Region Completed 04/03/2023 25029 Therapy Proc, Neuromuscular Reeducation Of Movement Completed 04/03/2023 16137 Therapy Proc 1/> Area 15Min Ea Completed 04/01/2023 59690 Manual Cap Jewel Plate Assembler 1/> Area 15 Min Each Region Completed 04/01/2023 01940 Therapy Proc, Neuromuscular Reeducation Of Movement Completed 04/01/2023 11714 Therapy Proc 1/> Area 15Min Ea Completed 03/29/2023 29162 Manual Cap Jewel Plate Assembler 1/> Area 15 Min Each Region Completed 03/29/2023 88280 Therapy Proc, Neuromuscular Reeducation Of Movement Completed 03/29/2023 13736 Therapy Proc 1/> Area 15Min Ea Completed 03/27/2023 76254 Manual Cap Jewel Plate Assembler 1/> Area 15 Min Each Region Completed 03/27/2023 59077 Therapy Proc, Neuromuscular Reeducation Of Movement Completed 03/27/2023 20638 Therapy Proc 1/> Area 15Min Ea Completed 03/25/2023 80407 Therapy Proc 1/> Area 15Min Ea Completed 03/25/2023 63055 Manual Cap Jewel Plate Assembler 1/> Area 15 Min Each Region Completed 03/25/2023 19366 Therapy Proc, Neuromuscular Reeducation Of Movement Completed 03/22/2023 76263 Manual Cap Jewel Plate Assembler 1/> Area 15 Min Each Region Completed 03/22/2023 38951 Therapy Proc, Neuromuscular Reeducation Of Movement Completed 03/22/2023 97520 Therapy Proc 1/> Area 15Min Ea Completed 03/20/2023 58049 Manual Cap Jewel Plate Assembler 1/> Area 15 Min Each Region Completed 03/20/2023 86065 Therapy Proc, Neuromuscular Reeducation Of Movement Completed 03/20/2023 73637 Therapy Proc 1/> Area 15Min Ea Completed 03/18/2023 44333 Manual Cap Jewel Plate Assembler 1/> Area 15 Min Each Region Completed 03/18/2023 67493 Therapy Proc 1/> Area 15Min Ea Completed 03/18/2023 03183 Therapy Proc, Neuromuscular Reeducation Of Movement Completed 03/15/2023 35046 Manual Cap Jewel Plate Assembler 1/> Area 15 Min Each Region Completed 03/15/2023 84943 Therapy Proc, Neuromuscular Reeducation Of Movement Completed 03/15/2023 51433 Therapy Proc 1/> Area 15Min Ea Completed 03/13/2023 83558 Physical Therapy Evaluation Moderate Complexity Completed 03/13/2023 66604 Manual Cap Jewel Plate Assembler 1/> Area 15 Min Each Region Completed 03/13/2023 20492 Therapy Proc 1/> Area 15Min Ea Completed Medical Devices Description No Information Available Encounters Description No Information Available Assessments Date Code Description Provider 09/05/2023 R60.0 Localized edema [facility] - [place] 09/05/2023 I10 Essential (primary) hyperten vickie [facility] - [place] 08/27/2023 R26.2 Difficulty in wa [place]king, not [...] DPT 05/29/2023 M25.511 Pain in right shoulder Ozeil Garcia, DPT 05/27/2023 R26.2 Difficulty in wa [...] 10:30 am - Dawson Almodovar DO at [place] Functional Status Description No Information Available Mental Status Description No Information Available Referrals Description No Information Available"
--- OUTSIDE RECORDS SUMMARY | 2023-10-11 13:15 | External Medical Summary | Continuity of Care Document ---
Author Name Unknown Organization Family Practice [facility] Address [address] [place] [address] Phone [phone] Problems Active Problems Provider Date Essential hypertension [...] SIG Qnty Indications Order ing Provider Date Pxtecnjjme07vt Tablets 2 tablets by mouth every day 30tabs R60.0 Dawson Almodovar DO 10/05/2022 Multi + [place]-3 Adult GummiesChewtabs 1 by mouth every day Dawson Almodovar DO 08/08/2022 Vitamin B ComplexTablets 1 by mouth every day Dawson Almodovar DO 08/08/2022 Losartan Potassium/Hydrochlorothi [id number] Tablets 1 by mouth every day 90tabs I10 Dawson Almodovar DO 03/21/2020 Juice Plus Fibre` Dawson Almodovar DO 02/19/2018 Aspirin Adult Low Igmi91aj Tablets DR 1 by mouth every day Unknown Citalopram Tifncpejkrrg01lb Tablets 1 by mouth every day 90tabs F41.1 Dawson CintiaAlvin Almodovar, DO Vitamin D3 Maximum [id number] (5000 Ut) Capsules 1 by mouth once daily Unknown Immunizations CPT Code Status Date Vaccine Lot # [id number] Given 07/14/2009 Pneumococcal Vaccine/Pneu movax 23 92678 Refused 10/19/2022 Shingrix 18243 Refused 08/08/2022 Pneumococcal Conjugate-Pr evnar 20 15022 Refused 08/08/2022 Influenza Vac, Split, Preservative Free High Dose Age 65 & > 14350 Refused 04/20/2022 Moderna Sars-Co v-2 (Cov-19) vacc,100 mcg/ 0.5 mL 12Y+EMR Doc Only 47275 Refused 10/16/2021 Influenza Virus Vaccine, Quadrivalent (Cciiv4), Derived From Cell 07838 Refused 10/16/2021 Shingrix 18398 Refused 10/16/2021 Pneumococcal Conjugate-Pr evnar 13 95311 Refused 03/20/2021 Pfizer Sars-Cov -2 (Cov-19) vacc 30mcg/0.3ML 12Y+ EMR Doc Only 93129 Refused 04/17/2019 Influenza Vacci ne, Inactivated, Subunit, Adjuvanted, For Intrmusc 33259 Refused 01/29/2019 Tdap (Tetanus, diphtheria & acel. pertussis) Adacel or Boostrix 68136 Refused 01/29/2019 Pneumococcal Conjugate-Pr evnar 13 Vital [...] 92.988 kg Procedures Date Code Description Status 08/20/2023 62168 Manual Geoscience Professor 1/> Area 15 Min Each Region Completed 08/20/2023 65370 Therapeutic Activities Direc t, Each 15 Minutes Completed 08/20/2023 86832 Hot/Cold Pack Completed 08/20/2023 94544 Therapy Proc, Neuromuscular Reeducation Of Movement Completed 08/20/2023 40764 Therapy Proc 1/> Area 15Min Ea Completed 08/16/2023 59860 Manual Geoscience Professor 1/> Area 15 Min Each Region Completed 08/16/2023 18131 Therapy Proc, Neuromuscular Reeducation Of Movement Completed 08/16/2023 86379 Therapy Proc 1/> Area 15Min Ea Completed 08/16/2023 53032 Hot/Cold Pack Completed 08/16/2023 71497 Therapeutic Activities Direc t, Each 15 Minutes Completed 08/12/2023 50661 Therapy Proc 1/> Area 15Min Ea Completed 08/12/2023 16814 Hot/Cold Pack Completed 08/12/2023 90772 Therapy Proc, Neuromuscular Reeducation Of Movement Completed 08/12/2023 04602 Manual Geoscience Professor 1/> Area 15 Min Each Region Completed 08/12/2023 01238 Therapeutic Activities Direc t, Each 15 Minutes Completed 08/09/2023 60735 Therapeutic Activities Direc t, Each 15 Minutes Completed 08/09/2023 68678 Manual Geoscience Professor 1/> Area 15 Min Each Region Completed 08/09/2023 90131 Therapy Proc, Neuromuscular Reeducation Of Movement Completed 08/09/2023 29666 Therapy Proc 1/> Area 15Min Ea Completed 08/09/2023 64876 Hot/Cold Pack Completed 08/05/2023 96595 Manual Geoscience Professor 1/> Area 15 Min Each Region Completed 08/05/2023 95697 Hot/Cold Pack Completed 08/05/2023 82333 Therapy Proc, Neuromuscular Reeducation Of Movement Completed 08/05/2023 37100 Therapeutic Activities Direc t, Each 15 Minutes Completed 08/02/2023 26158 Therapeutic Activities Direc t, Each 15 Minutes Completed 08/02/2023 28343 Manual Geoscience Professor 1/> Area 15 Min Each Region Completed 08/02/2023 20912 Therapy Proc, Neuromuscular Reeducation Of Movement Completed 08/02/2023 87088 Therapy Proc 1/> Area 15Min Ea Completed 08/02/2023 04335 Hot/Cold Pack Completed 07/29/2023 78234 Therapeutic Activities Direc t, Each 15 Minutes Completed 07/29/2023 02737 Manual Geoscience Professor 1/> Area 15 Min Each Region Completed 07/29/2023 45272 Therapy Proc, Neuromuscular Reeducation Of Movement Completed 07/29/2023 65080 Therapy Proc 1/> Area 15Min Ea Completed 07/29/2023 98625 Hot/Cold Pack Completed 07/22/2023 14776 Manual Geoscience Professor 1/> Area 15 Min Each Region Completed 07/22/2023 28131 Hot/Cold Pack Completed 07/22/2023 11056 Therapy Proc 1/> Area 15Min Ea Completed 07/22/2023 07399 Therapeutic Activities Direc t, Each 15 Minutes Completed 07/22/2023 56770 Therapy Proc, Neuromuscular Reeducation Of Movement Completed 07/19/2023 95701 Therapeutic Activities Direc t, Each 15 Minutes Completed 07/19/2023 09750 Manual Geoscience Professor 1/> Area 15 Min Each Region Completed 07/19/2023 29766 Therapy Proc, Neuromuscular Reeducation Of Movement Completed 07/19/2023 19289 Therapy Proc 1/> Area 15Min Ea Completed 07/19/2023 83163 Hot/Cold Pack Completed 07/15/2023 11799 Therapeutic Activities Direc t, Each 15 Minutes Completed 07/15/2023 29753 Manual Geoscience Professor 1/> Area 15 Min Each Region Completed 07/15/2023 52784 Therapy Proc, Neuromuscular Reeducation Of Movement Completed 07/15/2023 36019 Hot/Cold Pack Completed 07/12/2023 78671 Therapy Proc 1/> Area 15Min Ea Completed 07/12/2023 54916 Hot/Cold Pack Completed 07/12/2023 03650 Therapy Proc, Neuromuscular Reeducation Of Movement Completed 07/12/2023 25606 Manual Geoscience Professor 1/> Area 15 Min Each Region Completed 07/12/2023 89741 Therapeutic Activities Direc t, Each 15 Minutes Completed 07/10/2023 79838 Therapeutic Activities Direc t, Each 15 Minutes Completed 07/10/2023 39084 Manual Geoscience Professor 1/> Area 15 Min Each Region Completed 07/10/2023 74347 Therapy Proc, Neuromuscular Reeducation Of Movement Completed 07/10/2023 98995 Therapy Proc 1/> Area 15Min Ea Completed 07/10/2023 06800 Hot/Cold Pack Completed 07/08/2023 57125 Therapeutic Activities Direc t, Each 15 Minutes Completed 07/08/2023 02853 Manual Geoscience Professor 1/> Area 15 Min Each Region Completed 07/08/2023 12991 Therapy Proc, Neuromuscular Reeducation Of Movement Completed 07/08/2023 33991 Therapy Proc 1/> Area 15Min Ea Completed 07/08/2023 41397 Hot/Cold Pack Completed 07/05/2023 85988 Hot/Cold Pack Completed 07/05/2023 68543 Therapy Proc 1/> Area 15Min Ea Completed 07/05/2023 05691 Therapy Proc, Neuromuscular Reeducation Of Movement Completed 07/05/2023 69905 Therapeutic Activities Direc t, Each 15 Minutes Completed 07/05/2023 70955 Manual Geoscience Professor 1/> Area 15 Min Each Region Completed 07/03/2023 05685 Therapeutic Activities Direc t, Each 15 Minutes Completed 07/03/2023 00430 Manual Geoscience Professor 1/> Area 15 Min Each Region Completed 07/03/2023 69426 Therapy Proc, Neuromuscular Reeducation Of Movement Completed 07/03/2023 76341 Therapy Proc 1/> Area 15Min Ea Completed 07/03/2023 54313 Hot/Cold Pack Completed 07/01/2023 32286 Therapy Proc, Neuromuscular Reeducation Of Movement Completed 07/01/2023 97448 Hot/Cold Pack Completed 07/01/2023 51968 Therapy Proc 1/> Area 15Min Ea Completed 07/01/2023 25966 Manual Geoscience Professor 1/> Area 15 Min Each Region Completed 07/01/2023 63553 Therapeutic Activities Direc t, Each 15 Minutes Completed 06/28/2023 99316 Therapeutic Activities Direc t, Each 15 Minutes Completed 06/28/2023 19549 Manual Geoscience Professor 1/> Area 15 Min Each Region Completed 06/28/2023 65514 Therapy Proc, Neuromuscular Reeducation Of Movement Completed 06/28/2023 96175 Therapy Proc 1/> Area 15Min Ea Completed 06/24/2023 17514 Manual Geoscience Professor 1/> Area 15 Min Each Region Completed 06/24/2023 51362 Hot/Cold Pack Completed 06/24/2023 82882 Therapy Proc 1/> Area 15Min Ea Completed 06/24/2023 00659 Therapy Proc, Neuromuscular Reeducation Of Movement Completed 06/24/2023 93097 Therapeutic Activities Direc t, Each 15 Minutes Completed 06/21/2023 70814 Therapeutic Activities Direc t, Each 15 Minutes Completed 06/21/2023 23014 Manual Geoscience Professor 1/> Area 15 Min Each Region Completed 06/21/2023 71296 Therapy Proc, Neuromuscular Reeducation Of Movement Completed 06/21/2023 85431 Therapy Proc 1/> Area 15Min Ea Completed 06/21/2023 63104 Hot/Cold Pack Completed 06/19/2023 38365 Therapeutic Activities Direc t, Each 15 Minutes Completed 06/19/2023 50710 Manual Geoscience Professor 1/> Area 15 Min Each Region Completed 06/19/2023 20876 Therapy Proc, Neuromuscular Reeducation Of Movement Completed 06/19/2023 81804 Therapy Proc 1/> Area 15Min Ea Completed 06/19/2023 69930 Hot/Cold Pack Completed 06/17/2023 97008 Therapeutic Activities Direc t, Each 15 Minutes Completed 06/17/2023 73276 Hot/Cold Pack Completed 06/17/2023 00694 Therapy Proc 1/> Area 15Min Ea Completed 06/17/2023 92603 Manual Geoscience Professor 1/> Area 15 Min Each Region Completed 06/17/2023 93837 Therapy Proc, Neuromuscular Reeducation Of Movement Completed 06/14/2023 48582 Therapeutic Activities Direc t, Each 15 Minutes Completed 06/14/2023 78888 Manual Geoscience Professor 1/> Area 15 Min Each Region Completed 06/14/2023 73707 Therapy Proc, Neuromuscular Reeducation Of Movement Completed 06/14/2023 40136 Therapy Proc 1/> Area 15Min Ea Completed 06/14/2023 88090 Hot/Cold Pack Completed 06/12/2023 48900 Therapeutic Activities Direc t, Each 15 Minutes Completed 06/12/2023 97182 Manual Geoscience Professor 1/> Area 15 Min Each Region Completed 06/12/2023 69291 Therapy Proc, Neuromuscular Reeducation Of Movement Completed 06/12/2023 83114 Therapy Proc 1/> Area 15Min Ea Completed 06/12/2023 45140 Hot/Cold Pack Completed 06/07/2023 86601 Therapy Proc, Neuromuscular Reeducation Of Movement Completed 06/07/2023 83152 Therapy Proc 1/> Area 15Min Ea Completed 06/07/2023 26849 Manual Geoscience Professor 1/> Area 15 Min Each Region Completed 06/07/2023 45221 Therapeutic Activities Direc t, Each 15 Minutes Completed 06/05/2023 13220 Therapeutic Activities Direc t, Each 15 Minutes Completed 06/05/2023 21807 Manual Geoscience Professor 1/> Area 15 Min Each Region Completed 06/05/2023 70409 Therapy Proc, Neuromuscular Reeducation Of Movement Completed 06/05/2023 25845 Therapy Proc 1/> Area 15Min Ea Completed 06/05/2023 96717 Hot/Cold Pack Completed 06/03/2023 84223 Therapeutic Activities Direc t, Each 15 Minutes Completed 06/03/2023 44033 Manual Geoscience Professor 1/> Area 15 Min Each Region Completed 06/03/2023 03985 Therapy Proc, Neuromuscular Reeducation Of Movement Completed 06/03/2023 92160 Therapy Proc 1/> Area 15Min Ea Completed 06/03/2023 54913 Hot/Cold Pack Completed 05/31/2023 85252 Hot/Cold Pack Completed 05/31/2023 52283 Manual Geoscience Professor 1/> Area 15 Min Each Region Completed 05/31/2023 49495 Therapeutic Activities Direc t, Each 15 Minutes Completed 05/31/2023 62080 Therapy Proc, Neuromuscular Reeducation Of Movement Completed 05/29/2023 85515 Therapeutic Procedure Group Completed 05/29/2023 16964 Manual Geoscience Professor 1/> Area 15 Min Each Region Completed 05/29/2023 66120 Therapy Proc, Neuromuscular Reeducation Of Movement Completed 05/29/2023 35260 Hot/Cold Pack Completed 05/29/2023 22055 Therapeutic Activities Direc t, Each 15 Minutes Completed 05/27/2023 00962 Hot/Cold Pack Completed 05/27/2023 36086 Therapy Proc, Neuromuscular Reeducation Of Movement Completed 05/27/2023 58775 Manual Geoscience Professor 1/> Area 15 Min Each Region Completed 05/27/2023 27249 Therapeutic Procedure Group Completed 05/27/2023 61116 Therapeutic Activities Direc t, Each 15 Minutes Completed 05/24/2023 39335 Therapeutic Activities Direc t, Each 15 Minutes Completed 05/24/2023 13455 Manual Geoscience Professor 1/> Area 15 Min Each Region Completed 05/24/2023 33137 Therapy Proc, Neuromuscular Reeducation Of Movement Completed 05/24/2023 12673 Therapy Proc 1/> Area 15Min Ea Completed 05/24/2023 74750 Hot/Cold Pack Completed 05/22/2023 30179 Manual Geoscience Professor 1/> Area 15 Min Each Region Completed 05/22/2023 48205 Hot/Cold Pack Completed 05/22/2023 46244 Therapy Proc 1/> Area 15Min Ea Completed 05/22/2023 18644 Therapy Proc, Neuromuscular Reeducation Of Movement Completed 05/22/2023 50982 Therapeutic Activities Direc t, Each 15 Minutes Completed 05/20/2023 76886 Therapeutic Activities Direc t, Each 15 Minutes Completed 05/20/2023 42927 Manual Geoscience Professor 1/> Area 15 Min Each Region Completed 05/20/2023 32694 Therapy Proc, Neuromuscular Reeducation Of Movement Completed 05/20/2023 59978 Therapy Proc 1/> Area 15Min Ea Completed 05/20/2023 70669 Hot/Cold Pack Completed 05/17/2023 81892 Therapeutic Activities Direc t, Each 15 Minutes Completed 05/17/2023 03774 Manual Geoscience Professor 1/> Area 15 Min Each Region Completed 05/17/2023 55451 Therapy Proc, Neuromuscular Reeducation Of Movement Completed 05/17/2023 46306 Therapy Proc 1/> Area 15Min Ea Completed 05/17/2023 29100 Hot/Cold Pack Completed 05/15/2023 91517 Therapeutic Activities Direc t, Each 15 Minutes Completed 05/15/2023 97938 Hot/Cold Pack Completed 05/15/2023 30499 Therapy Proc 1/> Area 15Min Ea Completed 05/15/2023 27652 Manual Geoscience Professor 1/> Area 15 Min Each Region Completed 05/15/2023 91426 Therapy Proc, Neuromuscular Reeducation Of Movement Completed 2023 22440 Therapeutic Activities Direc t, Each 15 Minutes Completed 2023 65889 Manual Geoscience Professor 1/> Area 15 Min Each Region Completed 2023 65038 Therapy Proc, Neuromuscular Reeducation Of Movement Completed 2023 66558 Therapy Proc 1/> Area 15Min Ea Completed 2023 87695 Hot/Cold Pack Completed 05/10/2023 92556 Therapeutic Activities Direc t, Each 15 Minutes Completed 05/10/2023 55840 Manual Geoscience Professor 1/> Area 15 Min Each Region Completed 05/10/2023 44374 Therapy Proc, Neuromuscular Reeducation Of Movement Completed 05/10/2023 83475 Therapy Proc 1/> Area 15Min Ea Completed 05/10/2023 34519 Hot/Cold Pack Completed 05/08/2023 03191 Therapy Proc, Neuromuscular Reeducation Of Movement Completed 05/08/2023 99344 Hot/Cold Pack Completed 05/08/2023 43276 Therapy Proc 1/> Area 15Min Ea Completed 05/08/2023 73278 Manual Geoscience Professor 1/> Area 15 Min Each Region Completed 05/08/2023 01411 Therapeutic Activities Direc t, Each 15 Minutes Completed 05/06/2023 30431 Therapeutic Activities Direc t, Each 15 Minutes Completed 05/06/2023 57827 Manual Geoscience Professor 1/> Area 15 Min Each Region Completed 05/06/2023 54383 Therapy Proc, Neuromuscular Reeducation Of Movement Completed 05/06/2023 67176 Therapy Proc 1/> Area 15Min Ea Completed 05/06/2023 52288 Hot/Cold Pack Completed 05/02/2023 96145 Therapeutic Activities Direc t, Each 15 Minutes Completed 05/02/2023 09510 Manual Geoscience Professor 1/> Area 15 Min Each Region Completed 05/02/2023 58620 Therapy Proc, Neuromuscular Reeducation Of Movement Completed 05/02/2023 95977 Therapy Proc 1/> Area 15Min Ea Completed 04/30/2023 21375 Hot/Cold Pack Completed 04/30/2023 98876 Therapy Proc 1/> Area 15Min Ea Completed 04/30/2023 41946 Manual Geoscience Professor 1/> Area 15 Min Each Region Completed 04/30/2023 25733 Therapy Proc, Neuromuscular Reeducation Of Movement Completed 04/24/2023 91858 Therapy Proc, Neuromuscular Reeducation Of Movement Completed 04/24/2023 69007 Therapy Proc 1/> Area 15Min Ea Completed 04/24/2023 44699 Manual Geoscience Professor 1/> Area 15 Min Each Region Completed 04/22/2023 90073 Manual Geoscience Professor 1/> Area 15 Min Each Region Completed 04/22/2023 77826 Therapy Proc, Neuromuscular Reeducation Of Movement Completed 04/22/2023 06145 Therapy Proc 1/> Area 15Min Ea Completed 04/22/2023 05642 Hot/Cold Pack Completed 04/19/2023 90314 Manual Geoscience Professor 1/> Area 15 Min Each Region Completed 04/19/2023 37709 Therapy Proc, Neuromuscular Reeducation Of Movement Completed 04/19/2023 51532 Therapy Proc 1/> Area 15Min Ea Completed 04/19/2023 56511 Hot/Cold Pack Completed 04/18/2023 90720 Manual Geoscience Professor 1/> Area 15 Min Each Region Completed 04/18/2023 50233 Therapy Proc, Neuromuscular Reeducation Of Movement Completed 04/18/2023 43545 Therapy Proc 1/> Area 15Min Ea Completed 04/15/2023 31291 Therapy Proc, Neuromuscular Reeducation Of Movement Completed 04/15/2023 66505 Hot/Cold Pack Completed 04/15/2023 74145 Therapy Proc 1/> Area 15Min Ea Completed 04/15/2023 02548 Manual Geoscience Professor 1/> Area 15 Min Each Region Completed 04/12/2023 03840 Manual Geoscience Professor 1/> Area 15 Min Each Region Completed 04/12/2023 21904 Therapy Proc, Neuromuscular Reeducation Of Movement Completed 04/12/2023 90380 Therapy Proc 1/> Area 15Min Ea Completed 04/12/2023 98070 Hot/Cold Pack Completed 04/10/2023 37939 Manual Geoscience Professor 1/> Area 15 Min Each Region Completed 04/10/2023 25943 Therapy Proc, Neuromuscular Reeducation Of Movement Completed 04/10/2023 12508 Therapy Proc 1/> Area 15Min Ea Completed 04/08/2023 14219 Manual Geoscience Professor 1/> Area 15 Min Each Region Completed 04/08/2023 59662 Therapy Proc, Neuromuscular Reeducation Of Movement Completed 04/08/2023 67426 Therapy Proc 1/> Area 15Min Ea Completed 04/05/2023 63004 Therapy Proc 1/> Area 15Min Ea Completed 04/05/2023 61799 Therapy Proc, Neuromuscular Reeducation Of Movement Completed 04/05/2023 15978 Manual Geoscience Professor 1/> Area 15 Min Each Region Completed 04/03/2023 54949 Manual Geoscience Professor 1/> Area 15 Min Each Region Completed 04/03/2023 68198 Therapy Proc, Neuromuscular Reeducation Of Movement Completed 04/03/2023 78343 Therapy Proc 1/> Area 15Min Ea Completed 04/01/2023 81594 Manual Geoscience Professor 1/> Area 15 Min Each Region Completed 04/01/2023 63748 Therapy Proc, Neuromuscular Reeducation Of Movement Completed 04/01/2023 97466 Therapy Proc 1/> Area 15Min Ea Completed 03/29/2023 04814 Manual Geoscience Professor 1/> Area 15 Min Each Region Completed 03/29/2023 84387 Therapy Proc, Neuromuscular Reeducation Of Movement Completed 03/29/2023 69375 Therapy Proc 1/> Area 15Min Ea Completed 03/27/2023 16194 Manual Geoscience Professor 1/> Area 15 Min Each Region Completed 03/27/2023 38402 Therapy Proc, Neuromuscular Reeducation Of Movement Completed 03/27/2023 51182 Therapy Proc 1/> Area 15Min Ea Completed 03/25/2023 11753 Therapy Proc 1/> Area 15Min Ea Completed 03/25/2023 62036 Manual Geoscience Professor 1/> Area 15 Min Each Region Completed 03/25/2023 85671 Therapy Proc, Neuromuscular Reeducation Of Movement Completed 03/22/2023 73154 Manual Geoscience Professor 1/> Area 15 Min Each Region Completed 03/22/2023 83865 Therapy Proc, Neuromuscular Reeducation Of Movement Completed 03/22/2023 23458 Therapy Proc 1/> Area 15Min Ea Completed 03/20/2023 96844 Manual Geoscience Professor 1/> Area 15 Min Each Region Completed 03/20/2023 82835 Therapy Proc, Neuromuscular Reeducation Of Movement Completed 03/20/2023 12911 Therapy Proc 1/> Area 15Min Ea Completed 03/18/2023 90203 Manual Geoscience Professor 1/> Area 15 Min Each Region Completed 03/18/2023 09190 Therapy Proc 1/> Area 15Min Ea Completed 03/18/2023 45492 Therapy Proc, Neuromuscular Reeducation Of Movement Completed 03/15/2023 08425 Manual Geoscience Professor 1/> Area 15 Min Each Region Completed 03/15/2023 92715 Therapy Proc, Neuromuscular Reeducation Of Movement Completed 03/15/2023 23761 Therapy Proc 1/> Area 15Min Ea Completed 03/13/2023 46363 Physical Therapy Evaluation Moderate Complexity Completed 03/13/2023 75808 Manual Geoscience Professor 1/> Area 15 Min Each Region Completed 03/13/2023 59819 Therapy Proc 1/> Area 15Min Ea Completed Medical Devices Description No Information Available Encounters Description No Information Available Assessments Date Code Description Provider 08/20/2023 R26.2 Difficulty in wa [place]king, not elsewhere classified Aki Garcia DPT 08/20/2023 M25.511 Pain in right shoulder [...] Difficulty in wa lking, not elsewhere classified kAi Garcia, DPT 07/03/2023 M25.511 Pain in right [...] Garcia, DPT Plan of Treatment Future Appointment(s):* 09/06/2023 10:30 am - Dawson Almodovar DO at [place] * 08/28/2023 10:30 am - [facility] Status Description No Information Available Mental Status Description No Information Available Referrals Description No Information Available"
--- OUTSIDE RECORDS SUMMARY | 2023-10-11 13:15 | External Medical Summary | Continuity of Care Document ---
Author Name Unknown Organization [facility] Address [address] [place] [address] Phone [phone] Problems Active Problems Provider Date Essential hypertension [...] SIG Qnty Indications Order ing Provider Date [id number] Tablets 2 tablets by mouth every day 30tabs R60.0 Dawson Almodovar DO 10/05/2022 Multi + Spencer-3 Adult GummiesChewtabs 1 by mouth every day Dawson Almodovar DO 08/08/2022 Vitamin B ComplexTablets 1 by mouth every day Dawson Almodovar DO 08/08/2022 Losartan Potassium/Hydrochlorothi [id number] Tablets 1 by mouth every day 90tabs I10 Dawson Almodovar DO 03/21/2020 Juice Plus Fibre` Dawson Almodovar DO 02/19/2018 Aspirin Adult Low Pucc51so Tablets DR 1 by mouth every day Unknown Citalopram [id number] Tablets 1 by mouth every day 90tabs F41.1 Dawson Almodovar, DO Vitamin D3 Maximum [id number] (5000 Ut) Capsules 1 by mouth once daily Unknown Immunizations CPT Code Status Date Vaccine Lot # [id number] Given 07/14/2009 Pneumococcal Vaccine/Pneu movax 23 [id number] Refused 10/19/2022 Shingrix 20381 Refused 08/08/2022 Pneumococcal Conjugate-Pr evnar 20 11088 Refused 08/08/2022 Influenza Vac, Split, Preservative Free High Dose Age 65 & > 31913 Refused 04/20/2022 Moderna Sars-Co v-2 (Cov-19) vacc,100 mcg/ 0.5 mL 12Y+EMR Doc Only [id number] Refused 10/16/2021 Influenza Virus Vaccine, Quadrivalent (Cciiv4), Derived From Cell 19597 Refused 10/16/2021 Shingrix 44986 Refused 10/16/2021 Pneumococcal Conjugate-Pr evnar 13 99698 Refused 03/20/2021 Pfizer Sars-Cov -2 (Cov-19) vacc 30mcg/0.3ML 12Y+ EMR Doc Only [id number] Refused 04/17/2019 Influenza Vacci ne, Inactivated, Subunit, Adjuvanted, For Intrmusc 91852 Refused 01/29/2019 Tdap (Tetanus, diphtheria & acel. pertussis) Adacel or Boostrix 92526 Refused 01/29/2019 Pneumococcal Conjugate-Pr evnar 13 Vital [...] 92.988 kg Procedures Date Code Description Status 08/27/2023 53647 Manual Shipping And Receiving Clerk 1/> Area 15 Min Each Region Completed 08/27/2023 85039 Therapy Proc, Neuromuscular Reeducation Of Movement Completed 08/27/2023 51251 Therapy Proc 1/> Area 15Min Ea Completed 08/27/2023 44076 Hot/Cold Pack Completed 08/27/2023 01860 Therapeutic Activities Direc t, Each 15 Minutes Completed 08/23/2023 36257 Hot/Cold Pack Completed 08/23/2023 46637 Therapy Proc 1/> Area 15Min Ea Completed 08/23/2023 62701 Therapy Proc, Neuromuscular Reeducation Of Movement Completed 08/23/2023 56640 Manual Shipping And Receiving Clerk 1/> Area 15 Min Each Region Completed 08/23/2023 87692 Therapeutic Activities Direc t, Each 15 Minutes Completed 08/20/2023 26489 Therapeutic Activities Direc t, Each 15 Minutes Completed 08/20/2023 11910 Manual Shipping And Receiving Clerk 1/> Area 15 Min Each Region Completed 08/20/2023 69969 Therapy Proc, Neuromuscular Reeducation Of Movement Completed 08/20/2023 33534 Therapy Proc 1/> Area 15Min Ea Completed 08/20/2023 97290 Hot/Cold Pack Completed 08/16/2023 50921 Manual Shipping And Receiving Clerk 1/> Area 15 Min Each Region Completed 08/16/2023 68935 Hot/Cold Pack Completed 08/16/2023 23664 Therapy Proc 1/> Area 15Min Ea Completed 08/16/2023 07902 Therapy Proc, Neuromuscular Reeducation Of Movement Completed 08/16/2023 78672 Therapeutic Activities Direc t, Each 15 Minutes Completed 08/12/2023 73213 Therapeutic Activities Direc t, Each 15 Minutes Completed 08/12/2023 14067 Manual Shipping And Receiving Clerk 1/> Area 15 Min Each Region Completed 08/12/2023 47028 Therapy Proc, Neuromuscular Reeducation Of Movement Completed 08/12/2023 05309 Therapy Proc 1/> Area 15Min Ea Completed 08/12/2023 66374 Hot/Cold Pack Completed 08/09/2023 64827 Therapeutic Activities Direc t, Each 15 Minutes Completed 08/09/2023 90615 Manual Shipping And Receiving Clerk 1/> Area 15 Min Each Region Completed 08/09/2023 78381 Therapy Proc, Neuromuscular Reeducation Of Movement Completed 08/09/2023 68275 Therapy Proc 1/> Area 15Min Ea Completed 08/09/2023 73225 Hot/Cold Pack Completed 08/05/2023 09256 Therapy Proc, Neuromuscular Reeducation Of Movement Completed 08/05/2023 80304 Hot/Cold Pack Completed 08/05/2023 51710 Manual Shipping And Receiving Clerk 1/> Area 15 Min Each Region Completed 08/05/2023 78490 Therapeutic Activities Direc t, Each 15 Minutes Completed 08/02/2023 21515 Therapeutic Activities Direc t, Each 15 Minutes Completed 08/02/2023 14223 Manual Shipping And Receiving Clerk 1/> Area 15 Min Each Region Completed 08/02/2023 43951 Therapy Proc, Neuromuscular Reeducation Of Movement Completed 08/02/2023 39826 Therapy Proc 1/> Area 15Min Ea Completed 08/02/2023 98247 Hot/Cold Pack Completed 07/29/2023 44102 Therapeutic Activities Direc t, Each 15 Minutes Completed 07/29/2023 84288 Manual Shipping And Receiving Clerk 1/> Area 15 Min Each Region Completed 07/29/2023 65670 Therapy Proc, Neuromuscular Reeducation Of Movement Completed 07/29/2023 29723 Therapy Proc 1/> Area 15Min Ea Completed 07/29/2023 49795 Hot/Cold Pack Completed 07/22/2023 56568 Hot/Cold Pack Completed 07/22/2023 09653 Therapy Proc 1/> Area 15Min Ea Completed 07/22/2023 97013 Manual Shipping And Receiving Clerk 1/> Area 15 Min Each Region Completed 07/22/2023 39629 Therapeutic Activities Direc t, Each 15 Minutes Completed 07/22/2023 55869 Therapy Proc, Neuromuscular Reeducation Of Movement Completed 07/19/2023 02455 Therapeutic Activities Direc t, Each 15 Minutes Completed 07/19/2023 54780 Manual Shipping And Receiving Clerk 1/> Area 15 Min Each Region Completed 07/19/2023 97257 Therapy Proc, Neuromuscular Reeducation Of Movement Completed 07/19/2023 49458 Therapy Proc 1/> Area 15Min Ea Completed 07/19/2023 52951 Hot/Cold Pack Completed 07/15/2023 08210 Manual Shipping And Receiving Clerk 1/> Area 15 Min Each Region Completed 07/15/2023 93318 Hot/Cold Pack Completed 07/15/2023 89473 Therapy Proc, Neuromuscular Reeducation Of Movement Completed 07/15/2023 91182 Therapeutic Activities Direc t, Each 15 Minutes Completed 07/12/2023 42172 Therapeutic Activities Direc t, Each 15 Minutes Completed 07/12/2023 54864 Manual Shipping And Receiving Clerk 1/> Area 15 Min Each Region Completed 07/12/2023 42253 Therapy Proc, Neuromuscular Reeducation Of Movement Completed 07/12/2023 84420 Therapy Proc 1/> Area 15Min Ea Completed 07/12/2023 25173 Hot/Cold Pack Completed 07/10/2023 12696 Hot/Cold Pack Completed 07/10/2023 31867 Therapy Proc 1/> Area 15Min Ea Completed 07/10/2023 44217 Manual Shipping And Receiving Clerk 1/> Area 15 Min Each Region Completed 07/10/2023 53878 Therapy Proc, Neuromuscular Reeducation Of Movement Completed 07/10/2023 84364 Therapeutic Activities Direc t, Each 15 Minutes Completed 07/08/2023 36254 Therapeutic Activities Direc t, Each 15 Minutes Completed 07/08/2023 16793 Manual Shipping And Receiving Clerk 1/> Area 15 Min Each Region Completed 07/08/2023 98899 Therapy Proc, Neuromuscular Reeducation Of Movement Completed 07/08/2023 10614 Therapy Proc 1/> Area 15Min Ea Completed 07/08/2023 13077 Hot/Cold Pack Completed 07/05/2023 75165 Therapy Proc 1/> Area 15Min Ea Completed 07/05/2023 90645 Hot/Cold Pack Completed 07/05/2023 65809 Therapy Proc, Neuromuscular Reeducation Of Movement Completed 07/05/2023 55339 Manual Shipping And Receiving Clerk 1/> Area 15 Min Each Region Completed 07/05/2023 22745 Therapeutic Activities Direc t, Each 15 Minutes Completed 07/03/2023 67197 Therapeutic Activities Direc t, Each 15 Minutes Completed 07/03/2023 01701 Manual Shipping And Receiving Clerk 1/> Area 15 Min Each Region Completed 07/03/2023 12213 Therapy Proc, Neuromuscular Reeducation Of Movement Completed 07/03/2023 24139 Therapy Proc 1/> Area 15Min Ea Completed 07/03/2023 61435 Hot/Cold Pack Completed 07/01/2023 23272 Therapeutic Activities Direc t, Each 15 Minutes Completed 07/01/2023 89865 Hot/Cold Pack Completed 07/01/2023 02228 Therapy Proc 1/> Area 15Min Ea Completed 07/01/2023 33841 Therapy Proc, Neuromuscular Reeducation Of Movement Completed 07/01/2023 36189 Manual Shipping And Receiving Clerk 1/> Area 15 Min Each Region Completed 06/28/2023 09977 Therapeutic Activities Direc t, Each 15 Minutes Completed 06/28/2023 66286 Manual Shipping And Receiving Clerk 1/> Area 15 Min Each Region Completed 06/28/2023 07912 Therapy Proc, Neuromuscular Reeducation Of Movement Completed 06/28/2023 42023 Therapy Proc 1/> Area 15Min Ea Completed 06/24/2023 18537 Therapeutic Activities Direc t, Each 15 Minutes Completed 06/24/2023 63500 Manual Shipping And Receiving Clerk 1/> Area 15 Min Each Region Completed 06/24/2023 85164 Therapy Proc, Neuromuscular Reeducation Of Movement Completed 06/24/2023 00884 Therapy Proc 1/> Area 15Min Ea Completed 06/24/2023 78066 Hot/Cold Pack Completed 06/21/2023 74069 Hot/Cold Pack Completed 06/21/2023 97976 Therapy Proc 1/> Area 15Min Ea Completed 06/21/2023 99655 Therapy Proc, Neuromuscular Reeducation Of Movement Completed 06/21/2023 11346 Therapeutic Activities Direc t, Each 15 Minutes Completed 06/21/2023 53545 Manual Shipping And Receiving Clerk 1/> Area 15 Min Each Region Completed 06/19/2023 15903 Therapeutic Activities Direc t, Each 15 Minutes Completed 06/19/2023 05720 Manual Shipping And Receiving Clerk 1/> Area 15 Min Each Region Completed 06/19/2023 91511 Therapy Proc, Neuromuscular Reeducation Of Movement Completed 06/19/2023 31054 Therapy Proc 1/> Area 15Min Ea Completed 06/19/2023 43425 Hot/Cold Pack Completed 06/17/2023 61776 Therapy Proc 1/> Area 15Min Ea Completed 06/17/2023 58322 Hot/Cold Pack Completed 06/17/2023 66304 Therapy Proc, Neuromuscular Reeducation Of Movement Completed 06/17/2023 28314 Manual Shipping And Receiving Clerk 1/> Area 15 Min Each Region Completed 06/17/2023 08420 Therapeutic Activities Direc t, Each 15 Minutes Completed 06/14/2023 85494 Therapeutic Activities Direc t, Each 15 Minutes Completed 06/14/2023 75018 Manual Shipping And Receiving Clerk 1/> Area 15 Min Each Region Completed 06/14/2023 85564 Therapy Proc, Neuromuscular Reeducation Of Movement Completed 06/14/2023 90951 Therapy Proc 1/> Area 15Min Ea Completed 06/14/2023 03497 Hot/Cold Pack Completed 06/12/2023 04288 Therapeutic Activities Direc t, Each 15 Minutes Completed 06/12/2023 43097 Hot/Cold Pack Completed 06/12/2023 95109 Therapy Proc 1/> Area 15Min Ea Completed 06/12/2023 81326 Therapy Proc, Neuromuscular Reeducation Of Movement Completed 06/12/2023 85489 Manual Shipping And Receiving Clerk 1/> Area 15 Min Each Region Completed 06/07/2023 84766 Therapeutic Activities Direc t, Each 15 Minutes Completed 06/07/2023 01575 Manual Shipping And Receiving Clerk 1/> Area 15 Min Each Region Completed 06/07/2023 09859 Therapy Proc, Neuromuscular Reeducation Of Movement Completed 06/07/2023 47453 Therapy Proc 1/> Area 15Min Ea Completed 06/05/2023 55727 Therapeutic Activities Direc t, Each 15 Minutes Completed 06/05/2023 96233 Manual Shipping And Receiving Clerk 1/> Area 15 Min Each Region Completed 06/05/2023 64510 Therapy Proc, Neuromuscular Reeducation Of Movement Completed 06/05/2023 18804 Therapy Proc 1/> Area 15Min Ea Completed 06/05/2023 16385 Hot/Cold Pack Completed 06/03/2023 67409 Hot/Cold Pack Completed 06/03/2023 32757 Manual Shipping And Receiving Clerk 1/> Area 15 Min Each Region Completed 06/03/2023 96986 Therapy Proc 1/> Area 15Min Ea Completed 06/03/2023 99127 Therapeutic Activities Direc t, Each 15 Minutes Completed 06/03/2023 93024 Therapy Proc, Neuromuscular Reeducation Of Movement Completed 05/31/2023 40446 Therapeutic Activities Direc t, Each 15 Minutes Completed 05/31/2023 35239 Manual Shipping And Receiving Clerk 1/> Area 15 Min Each Region Completed 05/31/2023 60680 Therapy Proc, Neuromuscular Reeducation Of Movement Completed 05/31/2023 51597 Hot/Cold Pack Completed 05/29/2023 14416 Therapy Proc, Neuromuscular Reeducation Of Movement Completed 05/29/2023 54436 Hot/Cold Pack Completed 05/29/2023 85551 Manual Shipping And Receiving Clerk 1/> Area 15 Min Each Region Completed 05/29/2023 46611 Therapeutic Procedure Group Completed 05/29/2023 86458 Therapeutic Activities Direc t, Each 15 Minutes Completed 05/27/2023 90505 Therapeutic Activities Direc t, Each 15 Minutes Completed 05/27/2023 79290 Therapeutic Procedure Group Completed 05/27/2023 07411 Manual Shipping And Receiving Clerk 1/> Area 15 Min Each Region Completed 05/27/2023 21101 Therapy Proc, Neuromuscular Reeducation Of Movement Completed 05/27/2023 24270 Hot/Cold Pack Completed 05/24/2023 83155 Manual Shipping And Receiving Clerk 1/> Area 15 Min Each Region Completed 05/24/2023 36509 Hot/Cold Pack Completed 05/24/2023 62039 Therapy Proc 1/> Area 15Min Ea Completed 05/24/2023 46884 Therapy Proc, Neuromuscular Reeducation Of Movement Completed 05/24/2023 83081 Therapeutic Activities Direc t, Each 15 Minutes Completed 05/22/2023 73635 Therapeutic Activities Direc t, Each 15 Minutes Completed 05/22/2023 74554 Manual Shipping And Receiving Clerk 1/> Area 15 Min Each Region Completed 05/22/2023 16252 Therapy Proc, Neuromuscular Reeducation Of Movement Completed 05/22/2023 00877 Therapy Proc 1/> Area 15Min Ea Completed 05/22/2023 55731 Hot/Cold Pack Completed 05/20/2023 19345 Therapeutic Activities Direc t, Each 15 Minutes Completed 05/20/2023 35028 Manual Shipping And Receiving Clerk 1/> Area 15 Min Each Region Completed 05/20/2023 70257 Therapy Proc, Neuromuscular Reeducation Of Movement Completed 05/20/2023 21235 Therapy Proc 1/> Area 15Min Ea Completed 05/20/2023 98239 Hot/Cold Pack Completed 05/17/2023 96707 Therapy Proc, Neuromuscular Reeducation Of Movement Completed 05/17/2023 08994 Hot/Cold Pack Completed 05/17/2023 43677 Therapy Proc 1/> Area 15Min Ea Completed 05/17/2023 64069 Manual Shipping And Receiving Clerk 1/> Area 15 Min Each Region Completed 05/17/2023 49774 Therapeutic Activities Direc t, Each 15 Minutes Completed 05/15/2023 00595 Therapeutic Activities Direc t, Each 15 Minutes Completed 05/15/2023 03622 Manual Shipping And Receiving Clerk 1/> Area 15 Min Each Region Completed 05/15/2023 03530 Therapy Proc, Neuromuscular Reeducation Of Movement Completed 05/15/2023 77569 Therapy Proc 1/> Area 15Min Ea Completed 05/15/2023 13330 Hot/Cold Pack Completed 2023 52623 Therapeutic Activities Direc t, Each 15 Minutes Completed 2023 04652 Manual Shipping And Receiving Clerk 1/> Area 15 Min Each Region Completed 2023 41577 Therapy Proc, Neuromuscular Reeducation Of Movement Completed 2023 87789 Therapy Proc 1/> Area 15Min Ea Completed 2023 61886 Hot/Cold Pack Completed 05/10/2023 31805 Hot/Cold Pack Completed 05/10/2023 50486 Therapy Proc 1/> Area 15Min Ea Completed 05/10/2023 28836 Manual Shipping And Receiving Clerk 1/> Area 15 Min Each Region Completed 05/10/2023 38551 Therapeutic Activities Direc t, Each 15 Minutes Completed 05/10/2023 63957 Therapy Proc, Neuromuscular Reeducation Of Movement Completed 05/08/2023 88289 Therapeutic Activities Direc t, Each 15 Minutes Completed 05/08/2023 16899 Manual Shipping And Receiving Clerk 1/> Area 15 Min Each Region Completed 05/08/2023 85827 Therapy Proc, Neuromuscular Reeducation Of Movement Completed 05/08/2023 08305 Therapy Proc 1/> Area 15Min Ea Completed 05/08/2023 88871 Hot/Cold Pack Completed 05/06/2023 98559 Manual Shipping And Receiving Clerk 1/> Area 15 Min Each Region Completed 05/06/2023 77272 Hot/Cold Pack Completed 05/06/2023 97278 Therapy Proc 1/> Area 15Min Ea Completed 05/06/2023 80221 Therapy Proc, Neuromuscular Reeducation Of Movement Completed 05/06/2023 75253 Therapeutic Activities Direc t, Each 15 Minutes Completed 05/02/2023 35828 Therapeutic Activities Direc t, Each 15 Minutes Completed 05/02/2023 20551 Manual Shipping And Receiving Clerk 1/> Area 15 Min Each Region Completed 05/02/2023 45799 Therapy Proc, Neuromuscular Reeducation Of Movement Completed 05/02/2023 92758 Therapy Proc 1/> Area 15Min Ea Completed 04/30/2023 32118 Manual Shipping And Receiving Clerk 1/> Area 15 Min Each Region Completed 04/30/2023 68650 Hot/Cold Pack Completed 04/30/2023 19550 Therapy Proc, Neuromuscular Reeducation Of Movement Completed 04/30/2023 30648 Therapy Proc 1/> Area 15Min Ea Completed 04/24/2023 02277 Therapy Proc, Neuromuscular Reeducation Of Movement Completed 04/24/2023 09754 Therapy Proc 1/> Area 15Min Ea Completed 04/24/2023 61619 Manual Shipping And Receiving Clerk 1/> Area 15 Min Each Region Completed 04/22/2023 35513 Manual Shipping And Receiving Clerk 1/> Area 15 Min Each Region Completed 04/22/2023 36029 Therapy Proc, Neuromuscular Reeducation Of Movement Completed 04/22/2023 26800 Therapy Proc 1/> Area 15Min Ea Completed 04/22/2023 79933 Hot/Cold Pack Completed 04/19/2023 84241 Manual Shipping And Receiving Clerk 1/> Area 15 Min Each Region Completed 04/19/2023 78171 Therapy Proc, Neuromuscular Reeducation Of Movement Completed 04/19/2023 54754 Therapy Proc 1/> Area 15Min Ea Completed 04/19/2023 76635 Hot/Cold Pack Completed 04/18/2023 04599 Manual Shipping And Receiving Clerk 1/> Area 15 Min Each Region Completed 04/18/2023 38777 Therapy Proc, Neuromuscular Reeducation Of Movement Completed 04/18/2023 01841 Therapy Proc 1/> Area 15Min Ea Completed 04/15/2023 79526 Therapy Proc, Neuromuscular Reeducation Of Movement Completed 04/15/2023 20004 Hot/Cold Pack Completed 04/15/2023 44943 Therapy Proc 1/> Area 15Min Ea Completed 04/15/2023 34751 Manual Shipping And Receiving Clerk 1/> Area 15 Min Each Region Completed 04/12/2023 83054 Manual Shipping And Receiving Clerk 1/> Area 15 Min Each Region Completed 04/12/2023 42869 Therapy Proc, Neuromuscular Reeducation Of Movement Completed 04/12/2023 75662 Therapy Proc 1/> Area 15Min Ea Completed 04/12/2023 88144 Hot/Cold Pack Completed 04/10/2023 40408 Manual Shipping And Receiving Clerk 1/> Area 15 Min Each Region Completed 04/10/2023 97946 Therapy Proc, Neuromuscular Reeducation Of Movement Completed 04/10/2023 84783 Therapy Proc 1/> Area 15Min Ea Completed 04/08/2023 53321 Manual Shipping And Receiving Clerk 1/> Area 15 Min Each Region Completed 04/08/2023 39821 Therapy Proc, Neuromuscular Reeducation Of Movement Completed 04/08/2023 91871 Therapy Proc 1/> Area 15Min Ea Completed 04/05/2023 54847 Therapy Proc 1/> Area 15Min Ea Completed 04/05/2023 37358 Therapy Proc, Neuromuscular Reeducation Of Movement Completed 04/05/2023 18504 Manual Shipping And Receiving Clerk 1/> Area 15 Min Each Region Completed 04/03/2023 14313 Manual Shipping And Receiving Clerk 1/> Area 15 Min Each Region Completed 04/03/2023 19667 Therapy Proc, Neuromuscular Reeducation Of Movement Completed 04/03/2023 78791 Therapy Proc 1/> Area 15Min Ea Completed 04/01/2023 45642 Manual Shipping And Receiving Clerk 1/> Area 15 Min Each Region Completed 04/01/2023 32020 Therapy Proc, Neuromuscular Reeducation Of Movement Completed 04/01/2023 35152 Therapy Proc 1/> Area 15Min Ea Completed 03/29/2023 57908 Manual Shipping And Receiving Clerk 1/> Area 15 Min Each Region Completed 03/29/2023 62493 Therapy Proc, Neuromuscular Reeducation Of Movement Completed 03/29/2023 31494 Therapy Proc 1/> Area 15Min Ea Completed 03/27/2023 34976 Manual Shipping And Receiving Clerk 1/> Area 15 Min Each Region Completed 03/27/2023 79481 Therapy Proc, Neuromuscular Reeducation Of Movement Completed 03/27/2023 94582 Therapy Proc 1/> Area 15Min Ea Completed 03/25/2023 05326 Therapy Proc 1/> Area 15Min Ea Completed 03/25/2023 41451 Manual Shipping And Receiving Clerk 1/> Area 15 Min Each Region Completed 03/25/2023 37337 Therapy Proc, Neuromuscular Reeducation Of Movement Completed 03/22/2023 53168 Manual Shipping And Receiving Clerk 1/> Area 15 Min Each Region Completed 03/22/2023 82252 Therapy Proc, Neuromuscular Reeducation Of Movement Completed 03/22/2023 37709 Therapy Proc 1/> Area 15Min Ea Completed 03/20/2023 62804 Manual Shipping And Receiving Clerk 1/> Area 15 Min Each Region Completed 03/20/2023 23880 Therapy Proc, Neuromuscular Reeducation Of Movement Completed 03/20/2023 32261 Therapy Proc 1/> Area 15Min Ea Completed 03/18/2023 01265 Manual Shipping And Receiving Clerk 1/> Area 15 Min Each Region Completed 03/18/2023 83574 Therapy Proc 1/> Area 15Min Ea Completed 03/18/2023 43153 Therapy Proc, Neuromuscular Reeducation Of Movement Completed 03/15/2023 81425 Manual Shipping And Receiving Clerk 1/> Area 15 Min Each Region Completed 03/15/2023 36857 Therapy Proc, Neuromuscular Reeducation Of Movement Completed 03/15/2023 77871 Therapy Proc 1/> Area 15Min Ea Completed 03/13/2023 77934 Physical Therapy Evaluation Moderate Complexity Completed 03/13/2023 82898 Manual Shipping And Receiving Clerk 1/> Area 15 Min Each Region Completed 03/13/2023 77620 Therapy Proc 1/> Area 15Min Ea Completed Medical Devices Description No Information Available Encounters Description No Information Available Assessments Date Code Description Provider 08/27/2023 R26.2 Difficulty in wa lking, not elsewhere classified Aki Garcia, DPT 08/27/2023 M25.511 Pain in right shoulder Oziel jeremy Garcia, DPT 08/23/2023 R26.2 Difficulty in wa lking, not elsewhere classified GABRIELLE EspinozaT 08/23/2023 M25.511 Pain in right shoulder Oziel jeremy Garcia, DPT 08/20/2023 R26.2 Difficulty in wa lking, not elsewhere classified Aki Garcia, DPT 08/20/2023 M25.511 Pain in right shoulder Oziel jeremy Garcia, DPT 08/16/2023 R26.2 Difficulty in wa lking, not elsewhere classified Aki Garcia, DPT 08/16/2023 M25.511 Pain in right shoulder Oziel jeremy Garcia, DPT 08/12/2023 R26.2 Difficulty in wa lking, not elsewhere classified Aki Garcia, DPT 08/12/2023 M25.511 Pain in right shoulder Oziel jeremy Garcia, DPT 08/09/2023 R26.2 Difficulty in wa lking, not elsewhere classified Aki Garcia, DPT 08/09/2023 M25.511 Pain in right shoulder Oziel jeremy Garcia, DPT 08/05/2023 R26.2 Difficulty in wa lking, not elsewhere classified Aki Garcia, DPT 08/05/2023 M25.511 Pain in right shoulder Oziel jeremy Garcia, DPT 08/02/2023 R26.2 Difficulty in wa lking, not elsewhere classified GABRIELLE EspinozaT 08/02/2023 M25.511 Pain in right shoulder Ozile Garcia, DPT 07/29/2023 R26.2 Difficulty in wa [...] 06/05/2023 M25.511 Pain in right shoulder Oziel Gacria, DPT 06/03/2023 R26.2 Difficulty in wa lking, [...] 03/13/2023 M25.511 Pain in right shoulder Oziel jeremy Garcia, NOE Plan of Treatment Future Appointment(s):* 09/05/2023 9:30 am - [facility] [place] [facility] 09/06/2023 10:30 am - Dawson Almodovar DO at [place] Functional Status Description No Information Available Mental Status Description No Information Available Referrals Description No Information Available"
--- OUTSIDE RECORDS SUMMARY | 2023-10-11 13:15 | External Medical Summary | Continuity of Care Document ---
Author Name Unknown Organization Family Practice [facility], [facility] Address [address] [place] [address] Phone [phone] Problems Active Problems Provider Date Essential hypertension [...] SIG Qnty Indications Order ing Provider Date [id number] Tablets 2 tablets by mouth every day 30tabs R60.0 Dawson Almodovar DO 10/05/2022 Multi + Goodells-3 Adult GummiesChewtabs 1 by mouth every day Dawson Almodovar DO 08/08/2022 Vitamin B ComplexTablets 1 by mouth every day Dawson Almodovar DO 08/08/2022 Losartan Potassium/Hydrochlorothi [id number] Tablets 1 by mouth every day 90tabs I10 Dawson Almodovar DO 03/21/2020 Juice Plus Fibre` Dawson Almodovar DO 02/19/2018 Aspirin Adult Low Gecf90fc Tablets DR 1 by mouth every day Unknown Citalopram Nacwyrhnbxug78es Tablets 1 by mouth every day 90tabs F41.1 Dawson CintiaAlvin Almodovar, DO Vitamin D3 Maximum [id number] (5000 Ut) Capsules 1 by mouth once daily Unknown Immunizations CPT Code Status Date Vaccine Lot # [id number] Given 07/14/2009 Pneumococcal Vaccine/Pneu movax 23 14149 Refused 10/19/2022 Shingrix 82447 Refused 08/08/2022 Pneumococcal Conjugate-Pr evnar 20 [id number] Refused 08/08/2022 Influenza Vac, Split, Preservative Free High Dose Age 65 & > 59385 Refused 04/20/2022 Moderna Sars-Co v-2 (Cov-19) vacc,100 mcg/ 0.5 mL 12Y+EMR Doc Only 43628 Refused 10/16/2021 Influenza Virus Vaccine, Quadrivalent (Cciiv4), Derived From Cell 92899 Refused 10/16/2021 Shingrix 12155 Refused 10/16/2021 Pneumococcal Conjugate-Pr evnar 13 49077 Refused 03/20/2021 Pfizer Sars-Cov -2 (Cov-19) vacc 30mcg/0.3ML 12Y+ EMR Doc Only 21500 Refused 04/17/2019 Influenza Vacci ne, Inactivated, Subunit, Adjuvanted, For Intrmusc 20387 Refused 01/29/2019 Tdap (Tetanus, diphtheria & acel. pertussis) Adacel or Boostrix 17758 Refused 01/29/2019 Pneumococcal Conjugate-Pr evnar 13 Vital [...] kg Procedures Date Code Description Status 08/20/2023 73791 Manual Tombstone Erector 1/> Area 15 Min Each Region Completed 08/20/2023 90847 Therapeutic Activities Direc t, Each 15 Minutes Completed 08/20/2023 86018 Hot/Cold Pack Completed 08/20/2023 92858 Therapy Proc, Neuromuscular Reeducation Of Movement Completed 08/20/2023 96401 Therapy Proc 1/> Area 15Min Ea Completed 08/16/2023 95315 Manual Tombstone Erector 1/> Area 15 Min Each Region Completed 08/16/2023 81724 Therapy Proc, Neuromuscular Reeducation Of Movement Completed 08/16/2023 50370 Therapy Proc 1/> Area 15Min Ea Completed 08/16/2023 63405 Hot/Cold Pack Completed 08/16/2023 52816 Therapeutic Activities Direc t, Each 15 Minutes Completed 08/12/2023 34973 Therapy Proc 1/> Area 15Min Ea Completed 08/12/2023 54115 Hot/Cold Pack Completed 08/12/2023 90710 Therapy Proc, Neuromuscular Reeducation Of Movement Completed 08/12/2023 16277 Manual Tombstone Erector 1/> Area 15 Min Each Region Completed 08/12/2023 33039 Therapeutic Activities Direc t, Each 15 Minutes Completed 08/09/2023 61669 Therapeutic Activities Direc t, Each 15 Minutes Completed 08/09/2023 50064 Manual Tombstone Erector 1/> Area 15 Min Each Region Completed 08/09/2023 32668 Therapy Proc, Neuromuscular Reeducation Of Movement Completed 08/09/2023 67059 Therapy Proc 1/> Area 15Min Ea Completed 08/09/2023 68020 Hot/Cold Pack Completed 08/05/2023 84373 Manual Tombstone Erector 1/> Area 15 Min Each Region Completed 08/05/2023 79088 Hot/Cold Pack Completed 08/05/2023 09777 Therapy Proc, Neuromuscular Reeducation Of Movement Completed 08/05/2023 75804 Therapeutic Activities Direc t, Each 15 Minutes Completed 08/02/2023 76208 Therapeutic Activities Direc t, Each 15 Minutes Completed 08/02/2023 68208 Manual Tombstone Erector 1/> Area 15 Min Each Region Completed 08/02/2023 81057 Therapy Proc, Neuromuscular Reeducation Of Movement Completed 08/02/2023 51951 Therapy Proc 1/> Area 15Min Ea Completed 08/02/2023 55901 Hot/Cold Pack Completed 07/29/2023 78335 Therapeutic Activities Direc t, Each 15 Minutes Completed 07/29/2023 75639 Manual Tombstone Erector 1/> Area 15 Min Each Region Completed 07/29/2023 74517 Therapy Proc, Neuromuscular Reeducation Of Movement Completed 07/29/2023 95093 Therapy Proc 1/> Area 15Min Ea Completed 07/29/2023 15995 Hot/Cold Pack Completed 07/22/2023 73379 Manual Tombstone Erector 1/> Area 15 Min Each Region Completed 07/22/2023 42309 Hot/Cold Pack Completed 07/22/2023 40577 Therapy Proc 1/> Area 15Min Ea Completed 07/22/2023 73809 Therapeutic Activities Direc t, Each 15 Minutes Completed 07/22/2023 30324 Therapy Proc, Neuromuscular Reeducation Of Movement Completed 07/19/2023 12994 Therapeutic Activities Direc t, Each 15 Minutes Completed 07/19/2023 71038 Manual Tombstone Erector 1/> Area 15 Min Each Region Completed 07/19/2023 36811 Therapy Proc, Neuromuscular Reeducation Of Movement Completed 07/19/2023 46593 Therapy Proc 1/> Area 15Min Ea Completed 07/19/2023 43481 Hot/Cold Pack Completed 07/15/2023 88280 Therapeutic Activities Direc t, Each 15 Minutes Completed 07/15/2023 77033 Manual Tombstone Erector 1/> Area 15 Min Each Region Completed 07/15/2023 74650 Therapy Proc, Neuromuscular Reeducation Of Movement Completed 07/15/2023 22729 Hot/Cold Pack Completed 07/12/2023 62905 Therapy Proc 1/> Area 15Min Ea Completed 07/12/2023 03330 Hot/Cold Pack Completed 07/12/2023 57718 Therapy Proc, Neuromuscular Reeducation Of Movement Completed 07/12/2023 54361 Manual Tombstone Erector 1/> Area 15 Min Each Region Completed 07/12/2023 46226 Therapeutic Activities Direc t, Each 15 Minutes Completed 07/10/2023 11239 Therapeutic Activities Direc t, Each 15 Minutes Completed 07/10/2023 41448 Manual Tombstone Erector 1/> Area 15 Min Each Region Completed 07/10/2023 65345 Therapy Proc, Neuromuscular Reeducation Of Movement Completed 07/10/2023 20104 Therapy Proc 1/> Area 15Min Ea Completed 07/10/2023 77183 Hot/Cold Pack Completed 07/08/2023 57475 Therapeutic Activities Direc t, Each 15 Minutes Completed 07/08/2023 65964 Manual Tombstone Erector 1/> Area 15 Min Each Region Completed 07/08/2023 23323 Therapy Proc, Neuromuscular Reeducation Of Movement Completed 07/08/2023 77090 Therapy Proc 1/> Area 15Min Ea Completed 07/08/2023 41063 Hot/Cold Pack Completed 07/05/2023 04035 Hot/Cold Pack Completed 07/05/2023 95846 Therapy Proc 1/> Area 15Min Ea Completed 07/05/2023 07859 Therapy Proc, Neuromuscular Reeducation Of Movement Completed 07/05/2023 66366 Therapeutic Activities Direc t, Each 15 Minutes Completed 07/05/2023 77318 Manual Tombstone Erector 1/> Area 15 Min Each Region Completed 07/03/2023 06313 Therapeutic Activities Direc t, Each 15 Minutes Completed 07/03/2023 38991 Manual Tombstone Erector 1/> Area 15 Min Each Region Completed 07/03/2023 50199 Therapy Proc, Neuromuscular Reeducation Of Movement Completed 07/03/2023 29057 Therapy Proc 1/> Area 15Min Ea Completed 07/03/2023 29584 Hot/Cold Pack Completed 07/01/2023 19584 Therapy Proc, Neuromuscular Reeducation Of Movement Completed 07/01/2023 90644 Hot/Cold Pack Completed 07/01/2023 11754 Therapy Proc 1/> Area 15Min Ea Completed 07/01/2023 44977 Manual Tombstone Erector 1/> Area 15 Min Each Region Completed 07/01/2023 18784 Therapeutic Activities Direc t, Each 15 Minutes Completed 06/28/2023 94882 Therapeutic Activities Direc t, Each 15 Minutes Completed 06/28/2023 19846 Manual Tombstone Erector 1/> Area 15 Min Each Region Completed 06/28/2023 37383 Therapy Proc, Neuromuscular Reeducation Of Movement Completed 06/28/2023 25114 Therapy Proc 1/> Area 15Min Ea Completed 06/24/2023 09854 Manual Tombstone Erector 1/> Area 15 Min Each Region Completed 06/24/2023 34348 Hot/Cold Pack Completed 06/24/2023 85915 Therapy Proc 1/> Area 15Min Ea Completed 06/24/2023 64103 Therapy Proc, Neuromuscular Reeducation Of Movement Completed 06/24/2023 04974 Therapeutic Activities Direc t, Each 15 Minutes Completed 06/21/2023 80701 Therapeutic Activities Direc t, Each 15 Minutes Completed 06/21/2023 82634 Manual Tombstone Erector 1/> Area 15 Min Each Region Completed 06/21/2023 34353 Therapy Proc, Neuromuscular Reeducation Of Movement Completed 06/21/2023 94261 Therapy Proc 1/> Area 15Min Ea Completed 06/21/2023 17975 Hot/Cold Pack Completed 06/19/2023 43340 Therapeutic Activities Direc t, Each 15 Minutes Completed 06/19/2023 23784 Manual Tombstone Erector 1/> Area 15 Min Each Region Completed 06/19/2023 50885 Therapy Proc, Neuromuscular Reeducation Of Movement Completed 06/19/2023 53650 Therapy Proc 1/> Area 15Min Ea Completed 06/19/2023 04570 Hot/Cold Pack Completed 06/17/2023 24800 Therapeutic Activities Direc t, Each 15 Minutes Completed 06/17/2023 83258 Hot/Cold Pack Completed 06/17/2023 46780 Therapy Proc 1/> Area 15Min Ea Completed 06/17/2023 15132 Manual Tombstone Erector 1/> Area 15 Min Each Region Completed 06/17/2023 99077 Therapy Proc, Neuromuscular Reeducation Of Movement Completed 06/14/2023 52491 Therapeutic Activities Direc t, Each 15 Minutes Completed 06/14/2023 83200 Manual Tombstone Erector 1/> Area 15 Min Each Region Completed 06/14/2023 97614 Therapy Proc, Neuromuscular Reeducation Of Movement Completed 06/14/2023 07095 Therapy Proc 1/> Area 15Min Ea Completed 06/14/2023 94979 Hot/Cold Pack Completed 06/12/2023 28297 Therapeutic Activities Direc t, Each 15 Minutes Completed 06/12/2023 72999 Manual Tombstone Erector 1/> Area 15 Min Each Region Completed 06/12/2023 78157 Therapy Proc, Neuromuscular Reeducation Of Movement Completed 06/12/2023 87399 Therapy Proc 1/> Area 15Min Ea Completed 06/12/2023 91166 Hot/Cold Pack Completed 06/07/2023 31413 Therapy Proc, Neuromuscular Reeducation Of Movement Completed 06/07/2023 90105 Therapy Proc 1/> Area 15Min Ea Completed 06/07/2023 91001 Manual Tombstone Erector 1/> Area 15 Min Each Region Completed 06/07/2023 85693 Therapeutic Activities Direc t, Each 15 Minutes Completed 06/05/2023 27046 Therapeutic Activities Direc t, Each 15 Minutes Completed 06/05/2023 52744 Manual Tombstone Erector 1/> Area 15 Min Each Region Completed 06/05/2023 55829 Therapy Proc, Neuromuscular Reeducation Of Movement Completed 06/05/2023 41779 Therapy Proc 1/> Area 15Min Ea Completed 06/05/2023 40585 Hot/Cold Pack Completed 06/03/2023 77311 Therapeutic Activities Direc t, Each 15 Minutes Completed 06/03/2023 57382 Manual Tombstone Erector 1/> Area 15 Min Each Region Completed 06/03/2023 66576 Therapy Proc, Neuromuscular Reeducation Of Movement Completed 06/03/2023 60946 Therapy Proc 1/> Area 15Min Ea Completed 06/03/2023 71466 Hot/Cold Pack Completed 05/31/2023 75487 Hot/Cold Pack Completed 05/31/2023 96896 Manual Tombstone Erector 1/> Area 15 Min Each Region Completed 05/31/2023 16617 Therapeutic Activities Direc t, Each 15 Minutes Completed 05/31/2023 02482 Therapy Proc, Neuromuscular Reeducation Of Movement Completed 05/29/2023 12368 Therapeutic Procedure Group Completed 05/29/2023 41405 Manual Tombstone Erector 1/> Area 15 Min Each Region Completed 05/29/2023 04260 Therapy Proc, Neuromuscular Reeducation Of Movement Completed 05/29/2023 62578 Hot/Cold Pack Completed 05/29/2023 66233 Therapeutic Activities Direc t, Each 15 Minutes Completed 05/27/2023 70888 Hot/Cold Pack Completed 05/27/2023 59307 Therapy Proc, Neuromuscular Reeducation Of Movement Completed 05/27/2023 66764 Manual Tombstone Erector 1/> Area 15 Min Each Region Completed 05/27/2023 51767 Therapeutic Procedure Group Completed 05/27/2023 29652 Therapeutic Activities Direc t, Each 15 Minutes Completed 05/24/2023 69957 Therapeutic Activities Direc t, Each 15 Minutes Completed 05/24/2023 91264 Manual Tombstone Erector 1/> Area 15 Min Each Region Completed 05/24/2023 78838 Therapy Proc, Neuromuscular Reeducation Of Movement Completed 05/24/2023 09352 Therapy Proc 1/> Area 15Min Ea Completed 05/24/2023 41953 Hot/Cold Pack Completed 05/22/2023 74445 Manual Tombstone Erector 1/> Area 15 Min Each Region Completed 05/22/2023 71928 Hot/Cold Pack Completed 05/22/2023 65040 Therapy Proc 1/> Area 15Min Ea Completed 05/22/2023 44278 Therapy Proc, Neuromuscular Reeducation Of Movement Completed 05/22/2023 68028 Therapeutic Activities Direc t, Each 15 Minutes Completed 05/20/2023 74817 Therapeutic Activities Direc t, Each 15 Minutes Completed 05/20/2023 70961 Manual Tombstone Erector 1/> Area 15 Min Each Region Completed 05/20/2023 48005 Therapy Proc, Neuromuscular Reeducation Of Movement Completed 05/20/2023 17037 Therapy Proc 1/> Area 15Min Ea Completed 05/20/2023 63455 Hot/Cold Pack Completed 05/17/2023 68289 Therapeutic Activities Direc t, Each 15 Minutes Completed 05/17/2023 58109 Manual Tombstone Erector 1/> Area 15 Min Each Region Completed 05/17/2023 76020 Therapy Proc, Neuromuscular Reeducation Of Movement Completed 05/17/2023 34452 Therapy Proc 1/> Area 15Min Ea Completed 05/17/2023 96876 Hot/Cold Pack Completed 05/15/2023 22376 Therapeutic Activities Direc t, Each 15 Minutes Completed 05/15/2023 44748 Hot/Cold Pack Completed 05/15/2023 00458 Therapy Proc 1/> Area 15Min Ea Completed 05/15/2023 03246 Manual Tombstone Erector 1/> Area 15 Min Each Region Completed 05/15/2023 40415 Therapy Proc, Neuromuscular Reeducation Of Movement Completed 2023 85834 Therapeutic Activities Direc t, Each 15 Minutes Completed 2023 17417 Manual Tombstone Erector 1/> Area 15 Min Each Region Completed 2023 17099 Therapy Proc, Neuromuscular Reeducation Of Movement Completed 2023 52165 Therapy Proc 1/> Area 15Min Ea Completed 2023 78859 Hot/Cold Pack Completed 05/10/2023 35551 Therapeutic Activities Direc t, Each 15 Minutes Completed 05/10/2023 41735 Manual Tombstone Erector 1/> Area 15 Min Each Region Completed 05/10/2023 31278 Therapy Proc, Neuromuscular Reeducation Of Movement Completed 05/10/2023 20325 Therapy Proc 1/> Area 15Min Ea Completed 05/10/2023 28128 Hot/Cold Pack Completed 05/08/2023 85075 Therapy Proc, Neuromuscular Reeducation Of Movement Completed 05/08/2023 16394 Hot/Cold Pack Completed 05/08/2023 09602 Therapy Proc 1/> Area 15Min Ea Completed 05/08/2023 66552 Manual Tombstone Erector 1/> Area 15 Min Each Region Completed 05/08/2023 09855 Therapeutic Activities Direc t, Each 15 Minutes Completed 05/06/2023 89607 Therapeutic Activities Direc t, Each 15 Minutes Completed 05/06/2023 96475 Manual Tombstone Erector 1/> Area 15 Min Each Region Completed 05/06/2023 71173 Therapy Proc, Neuromuscular Reeducation Of Movement Completed 05/06/2023 17313 Therapy Proc 1/> Area 15Min Ea Completed 05/06/2023 59994 Hot/Cold Pack Completed 05/02/2023 91288 Therapeutic Activities Direc t, Each 15 Minutes Completed 05/02/2023 73474 Manual Tombstone Erector 1/> Area 15 Min Each Region Completed 05/02/2023 47940 Therapy Proc, Neuromuscular Reeducation Of Movement Completed 05/02/2023 46438 Therapy Proc 1/> Area 15Min Ea Completed 04/30/2023 21580 Hot/Cold Pack Completed 04/30/2023 04144 Therapy Proc 1/> Area 15Min Ea Completed 04/30/2023 11288 Manual Tombstone Erector 1/> Area 15 Min Each Region Completed 04/30/2023 27986 Therapy Proc, Neuromuscular Reeducation Of Movement Completed 04/24/2023 63295 Therapy Proc, Neuromuscular Reeducation Of Movement Completed 04/24/2023 38419 Therapy Proc 1/> Area 15Min Ea Completed 04/24/2023 05015 Manual Tombstone Erector 1/> Area 15 Min Each Region Completed 04/22/2023 11985 Manual Tombstone Erector 1/> Area 15 Min Each Region Completed 04/22/2023 48238 Therapy Proc, Neuromuscular Reeducation Of Movement Completed 04/22/2023 04426 Therapy Proc 1/> Area 15Min Ea Completed 04/22/2023 12462 Hot/Cold Pack Completed 04/19/2023 07712 Manual Tombstone Erector 1/> Area 15 Min Each Region Completed 04/19/2023 88038 Therapy Proc, Neuromuscular Reeducation Of Movement Completed 04/19/2023 48977 Therapy Proc 1/> Area 15Min Ea Completed 04/19/2023 22590 Hot/Cold Pack Completed 04/18/2023 06816 Manual Tombstone Erector 1/> Area 15 Min Each Region Completed 04/18/2023 70426 Therapy Proc, Neuromuscular Reeducation Of Movement Completed 04/18/2023 67278 Therapy Proc 1/> Area 15Min Ea Completed 04/15/2023 69864 Therapy Proc, Neuromuscular Reeducation Of Movement Completed 04/15/2023 44217 Hot/Cold Pack Completed 04/15/2023 18756 Therapy Proc 1/> Area 15Min Ea Completed 04/15/2023 43385 Manual Tombstone Erector 1/> Area 15 Min Each Region Completed 04/12/2023 17361 Manual Tombstone Erector 1/> Area 15 Min Each Region Completed 04/12/2023 29240 Therapy Proc, Neuromuscular Reeducation Of Movement Completed 04/12/2023 42268 Therapy Proc 1/> Area 15Min Ea Completed 04/12/2023 84980 Hot/Cold Pack Completed 04/10/2023 12895 Manual Tombstone Erector 1/> Area 15 Min Each Region Completed 04/10/2023 70704 Therapy Proc, Neuromuscular Reeducation Of Movement Completed 04/10/2023 16438 Therapy Proc 1/> Area 15Min Ea Completed 04/08/2023 49564 Manual Tombstone Erector 1/> Area 15 Min Each Region Completed 04/08/2023 58024 Therapy Proc, Neuromuscular Reeducation Of Movement Completed 04/08/2023 06697 Therapy Proc 1/> Area 15Min Ea Completed 04/05/2023 47125 Therapy Proc 1/> Area 15Min Ea Completed 04/05/2023 96147 Therapy Proc, Neuromuscular Reeducation Of Movement Completed 04/05/2023 34025 Manual Tombstone Erector 1/> Area 15 Min Each Region Completed 04/03/2023 56253 Manual Tombstone Erector 1/> Area 15 Min Each Region Completed 04/03/2023 07985 Therapy Proc, Neuromuscular Reeducation Of Movement Completed 04/03/2023 49810 Therapy Proc 1/> Area 15Min Ea Completed 04/01/2023 98463 Manual Tombstone Erector 1/> Area 15 Min Each Region Completed 04/01/2023 97832 Therapy Proc, Neuromuscular Reeducation Of Movement Completed 04/01/2023 75456 Therapy Proc 1/> Area 15Min Ea Completed 03/29/2023 45659 Manual Tombstone Erector 1/> Area 15 Min Each Region Completed 03/29/2023 77728 Therapy Proc, Neuromuscular Reeducation Of Movement Completed 03/29/2023 20355 Therapy Proc 1/> Area 15Min Ea Completed 03/27/2023 36184 Manual Tombstone Erector 1/> Area 15 Min Each Region Completed 03/27/2023 50321 Therapy Proc, Neuromuscular Reeducation Of Movement Completed 03/27/2023 51990 Therapy Proc 1/> Area 15Min Ea Completed 03/25/2023 04065 Therapy Proc 1/> Area 15Min Ea Completed 03/25/2023 71903 Manual Tombstone Erector 1/> Area 15 Min Each Region Completed 03/25/2023 58786 Therapy Proc, Neuromuscular Reeducation Of Movement Completed 03/22/2023 12656 Manual Tombstone Erector 1/> Area 15 Min Each Region Completed 03/22/2023 12124 Therapy Proc, Neuromuscular Reeducation Of Movement Completed 03/22/2023 47527 Therapy Proc 1/> Area 15Min Ea Completed 03/20/2023 65494 Manual Tombstone Erector 1/> Area 15 Min Each Region Completed 03/20/2023 10501 Therapy Proc, Neuromuscular Reeducation Of Movement Completed 03/20/2023 68977 Therapy Proc 1/> Area 15Min Ea Completed 03/18/2023 05171 Manual Tombstone Erector 1/> Area 15 Min Each Region Completed 03/18/2023 48877 Therapy Proc 1/> Area 15Min Ea Completed 03/18/2023 23589 Therapy Proc, Neuromuscular Reeducation Of Movement Completed 03/15/2023 52736 Manual Tombstone Erector 1/> Area 15 Min Each Region Completed 03/15/2023 14921 Therapy Proc, Neuromuscular Reeducation Of Movement Completed 03/15/2023 67217 Therapy Proc 1/> Area 15Min Ea Completed 03/13/2023 86992 Physical Therapy Evaluation Moderate Complexity Completed 03/13/2023 59689 Manual Tombstone Erector 1/> Area 15 Min Each Region Completed 03/13/2023 93612 Therapy Proc 1/> Area 15Min Ea Completed [...] Garcia, DPT Plan of Treatment Future Appointment(s):* 09/05/2023 9:30 am - [facility] [place] [place] [facility] 09/06/2023 10:30 am - Dawson Almodovar DO at [place] Functional Status Description No Information Available Mental Status Description No Information Available Referrals Description No Information Available"
--- OUTSIDE RECORDS SUMMARY | 2023-10-11 13:15 | External Medical Summary | Continuity of Care Document ---
Author Name Unknown Organization Family Practice [facility], [facility] Address [address] [place] [address] Phone [phone] Problems Active Problems Provider Date Essential hypertension [...] SIG Qnty Indications Order ing Provider Date [id number] Tablets 2 tablets by mouth every day 30tabs R60.0 Dawson Almodovar DO 10/05/2022 Multi + Amasa-3 Adult GummiesChewtabs 1 by mouth every day Dawson Almodovar DO 08/08/2022 Vitamin B ComplexTablets 1 by mouth every day Dawson Almodovar DO 08/08/2022 Losartan Potassium/Hydrochlorothi [id number] Tablets 1 by mouth every day 90tabs I10 Dawson Almodovar DO 03/21/2020 Juice Plus Fibre` Dawson Almodovar DO 02/19/2018 Aspirin Adult Low Qkst95aw Tablets DR 1 by mouth every day Unknown Citalopram [id number] Tablets 1 by mouth every day 90tabs F41.1 Dawson Almodovar, DO Vitamin D3 Maximum [id number] (5000 Ut) Capsules 1 by mouth once daily Unknown Immunizations CPT Code Status Date Vaccine Lot # [id number] Given 07/14/2009 Pneumococcal Vaccine/Pneu movax 23 [id number] Refused 10/19/2022 Shingrix 92516 Refused 08/08/2022 Pneumococcal Conjugate-Pr evnar 20 [id number] Refused 08/08/2022 Influenza Vac, Split, Preservative Free High Dose Age 65 & > 91055 Refused 04/20/2022 Moderna Sars-Co v-2 (Cov-19) vacc,100 mcg/ 0.5 mL 12Y+EMR Doc Only [id number] Refused 10/16/2021 Influenza Virus Vaccine, Quadrivalent (Cciiv4), Derived From Cell 74296 Refused 10/16/2021 Shingrix 34714 Refused 10/16/2021 Pneumococcal Conjugate-Pr evnar 13 11660 Refused 03/20/2021 Pfizer Sars-Cov -2 (Cov-19) vacc 30mcg/0.3ML 12Y+ EMR Doc Only 15625 Refused 04/17/2019 Influenza Vacci ne, Inactivated, Subunit, Adjuvanted, For Intrmusc 39380 Refused 01/29/2019 Tdap (Tetanus, diphtheria & acel. pertussis) Adacel or Boostrix 12345 Refused 01/29/2019 Pneumococcal Conjugate-Pr evnar 13 Vital [...] kg Procedures Date Code Description Status 08/27/2023 79390 [facility] 1/> Area 15 Min Each Region Completed 08/27/2023 69064 Therapy Proc, Neuromuscular Reeducation Of Movement Completed 08/27/2023 54121 Therapy Proc 1/> Area 15Min Ea Completed 08/27/2023 85664 Hot/Cold Pack Completed 08/27/2023 40269 Therapeutic Activities Direc t, Each 15 Minutes Completed 08/23/2023 19222 Hot/Cold Pack Completed 08/23/2023 59165 Therapy Proc 1/> Area 15Min Ea Completed 08/23/2023 67265 Therapy Proc, Neuromuscular Reeducation Of Movement Completed 08/23/2023 69045 Manual [facility]ist Physicians 1/> Area 15 Min Each Region Completed 08/23/2023 04992 Therapeutic Activities Direc t, Each 15 Minutes Completed 08/20/2023 91059 Therapeutic Activities Direc t, Each 15 Minutes Completed 08/20/2023 38694 [facility] Physicians 1/> Area 15 Min Each Region Completed 08/20/2023 68401 Therapy Proc, Neuromuscular Reeducation Of Movement Completed 08/20/2023 98302 Therapy Proc 1/> Area 15Min Ea Completed 08/20/2023 19412 Hot/Cold Pack Completed 08/16/2023 40999 Manual Specialist Physicians 1/> Area 15 Min Each Region Completed 08/16/2023 62361 Hot/Cold Pack Completed 08/16/2023 82643 Therapy Proc 1/> Area 15Min Ea Completed 08/16/2023 56795 Therapy Proc, Neuromuscular Reeducation Of Movement Completed 08/16/2023 94883 Therapeutic Activities Direc t, Each 15 Minutes Completed 08/12/2023 55988 Therapeutic Activities Direc t, Each 15 Minutes Completed 08/12/2023 09566 [facility] Specialist Physicians 1/> Area 15 Min Each Region Completed 08/12/2023 07903 Therapy Proc, Neuromuscular Reeducation Of Movement Completed 08/12/2023 96687 Therapy Proc 1/> Area 15Min Ea Completed 08/12/2023 57623 Hot/Cold Pack Completed 08/09/2023 60109 Therapeutic Activities Direc t, Each 15 Minutes Completed 08/09/2023 24564 [facility] Specialist Physicians 1/> Area 15 Min Each Region Completed 08/09/2023 08967 Therapy Proc, Neuromuscular Reeducation Of Movement Completed 08/09/2023 96712 Therapy Proc 1/> Area 15Min Ea Completed 08/09/2023 12737 Hot/Cold Pack Completed 08/05/2023 63105 Therapy Proc, Neuromuscular Reeducation Of Movement Completed 08/05/2023 91043 Hot/Cold Pack Completed 08/05/2023 04234 Manual Specialist Physicians 1/> Area 15 Min Each Region Completed 08/05/2023 93742 Therapeutic Activities Direc t, Each 15 Minutes Completed 08/02/2023 88424 Therapeutic Activities Direc t, Each 15 Minutes Completed 08/02/2023 01455 Manual Specialist Physicians 1/> Area 15 Min Each Region Completed 08/02/2023 79468 Therapy Proc, Neuromuscular Reeducation Of Movement Completed 08/02/2023 92786 Therapy Proc 1/> Area 15Min Ea Completed 08/02/2023 22667 Hot/Cold Pack Completed 07/29/2023 59422 Therapeutic Activities Direc t, Each 15 Minutes Completed 07/29/2023 54269 [facility] Physicians 1/> Area 15 Min Each Region Completed 07/29/2023 39289 Therapy Proc, Neuromuscular Reeducation Of Movement Completed 07/29/2023 89925 Therapy Proc 1/> Area 15Min Ea Completed 07/29/2023 35058 Hot/Cold Pack Completed 07/22/2023 31805 Hot/Cold Pack Completed 07/22/2023 20475 Therapy Proc 1/> Area 15Min Ea Completed 07/22/2023 81432 Manual Specialist Physicians 1/> Area 15 Min Each Region Completed 07/22/2023 10092 Therapeutic Activities Direc t, Each 15 Minutes Completed 07/22/2023 19536 Therapy Proc, Neuromuscular Reeducation Of Movement Completed 07/19/2023 56342 Therapeutic Activities Direc t, Each 15 Minutes Completed 07/19/2023 63867 [facility] Physicians 1/> Area 15 Min Each Region Completed 07/19/2023 12048 Therapy Proc, Neuromuscular Reeducation Of Movement Completed 07/19/2023 10835 Therapy Proc 1/> Area 15Min Ea Completed 07/19/2023 43048 Hot/Cold Pack Completed 07/15/2023 08555 Manual Specialist Physicians 1/> Area 15 Min Each Region Completed 07/15/2023 83538 Hot/Cold Pack Completed 07/15/2023 35945 Therapy Proc, Neuromuscular Reeducation Of Movement Completed 07/15/2023 73045 Therapeutic Activities Direc t, Each 15 Minutes Completed 07/12/2023 82401 Therapeutic Activities Direc t, Each 15 Minutes Completed 07/12/2023 01245 [facility] Physicians 1/> Area 15 Min Each Region Completed 07/12/2023 20453 Therapy Proc, Neuromuscular Reeducation Of Movement Completed 07/12/2023 54680 Therapy Proc 1/> Area 15Min Ea Completed 07/12/2023 48311 Hot/Cold Pack Completed 07/10/2023 35784 Hot/Cold Pack Completed 07/10/2023 54895 Therapy Proc 1/> Area 15Min Ea Completed 07/10/2023 21555 Manual Specialist Physicians 1/> Area 15 Min Each Region Completed 07/10/2023 22118 Therapy Proc, Neuromuscular Reeducation Of Movement Completed 07/10/2023 59180 Therapeutic Activities Direc t, Each 15 Minutes Completed 07/08/2023 90454 Therapeutic Activities Direc t, Each 15 Minutes Completed 07/08/2023 01013 [facility] Specialist Physicians 1/> Area 15 Min Each Region Completed 07/08/2023 98786 Therapy Proc, Neuromuscular Reeducation Of Movement Completed 07/08/2023 45713 Therapy Proc 1/> Area 15Min Ea Completed 07/08/2023 61299 Hot/Cold Pack Completed 07/05/2023 75039 Therapy Proc 1/> Area 15Min Ea Completed 07/05/2023 56980 Hot/Cold Pack Completed 07/05/2023 78479 Therapy Proc, Neuromuscular Reeducation Of Movement Completed 07/05/2023 76698 [facility] Physicians 1/> Area 15 Min Each Region Completed 07/05/2023 30485 Therapeutic Activities Direc t, Each 15 Minutes Completed 07/03/2023 77539 Therapeutic Activities Direc t, Each 15 Minutes Completed 07/03/2023 87300 [facility] Physicians 1/> Area 15 Min Each Region Completed 07/03/2023 33168 Therapy Proc, Neuromuscular Reeducation Of Movement Completed 07/03/2023 61486 Therapy Proc 1/> Area 15Min Ea Completed 07/03/2023 76082 Hot/Cold Pack Completed 07/01/2023 20531 Therapeutic Activities Direc t, Each 15 Minutes Completed 07/01/2023 70031 Hot/Cold Pack Completed 07/01/2023 68936 Therapy Proc 1/> Area 15Min Ea Completed 07/01/2023 87755 Therapy Proc, Neuromuscular Reeducation Of Movement Completed 07/01/2023 52260 Manual Specialist Physicians 1/> Area 15 Min Each Region Completed 06/28/2023 61323 Therapeutic Activities Direc t, Each 15 Minutes Completed 06/28/2023 29175 Manual Specialist Physicians 1/> Area 15 Min Each Region Completed 06/28/2023 09010 Therapy Proc, Neuromuscular Reeducation Of Movement Completed 06/28/2023 09663 Therapy Proc 1/> Area 15Min Ea Completed 06/24/2023 00914 Therapeutic Activities Direc t, Each 15 Minutes Completed 06/24/2023 52684 Manual Specialist Physicians 1/> Area 15 Min Each Region Completed 06/24/2023 11969 Therapy Proc, Neuromuscular Reeducation Of Movement Completed 06/24/2023 73215 Therapy Proc 1/> Area 15Min Ea Completed 06/24/2023 34355 Hot/Cold Pack Completed 06/21/2023 14003 Hot/Cold Pack Completed 06/21/2023 12833 Therapy Proc 1/> Area 15Min Ea Completed 06/21/2023 59510 Therapy Proc, Neuromuscular Reeducation Of Movement Completed 06/21/2023 14297 Therapeutic Activities Direc t, Each 15 Minutes Completed 06/21/2023 96235 [facility] Specialist Physicians 1/> Area 15 Min Each Region Completed 06/19/2023 87452 Therapeutic Activities Direc t, Each 15 Minutes Completed 06/19/2023 81057 [facility] Specialist Physicians 1/> Area 15 Min Each Region Completed 06/19/2023 90063 Therapy Proc, Neuromuscular Reeducation Of Movement Completed 06/19/2023 13012 Therapy Proc 1/> Area 15Min Ea Completed 06/19/2023 84466 Hot/Cold Pack Completed 06/17/2023 87703 Therapy Proc 1/> Area 15Min Ea Completed 06/17/2023 37534 Hot/Cold Pack Completed 06/17/2023 93035 Therapy Proc, Neuromuscular Reeducation Of Movement Completed 06/17/2023 67894 [facility] Specialist Physicians 1/> Area 15 Min Each Region Completed 06/17/2023 81226 Therapeutic Activities Direc t, Each 15 Minutes Completed 06/14/2023 01137 Therapeutic Activities Direc t, Each 15 Minutes Completed 06/14/2023 83431 [facility] Specialist Physicians 1/> Area 15 Min Each Region Completed 06/14/2023 70667 Therapy Proc, Neuromuscular Reeducation Of Movement Completed 06/14/2023 62849 Therapy Proc 1/> Area 15Min Ea Completed 06/14/2023 29061 Hot/Cold Pack Completed 06/12/2023 88096 Therapeutic Activities Direc t, Each 15 Minutes Completed 06/12/2023 52250 Hot/Cold Pack Completed 06/12/2023 69014 Therapy Proc 1/> Area 15Min Ea Completed 06/12/2023 92444 Therapy Proc, Neuromuscular Reeducation Of Movement Completed 06/12/2023 72083 [facility]ist Physicians 1/> Area 15 Min Each Region Completed 06/07/2023 86670 Therapeutic Activities Direc t, Each 15 Minutes Completed 06/07/2023 18169 [facility]ist Physicians 1/> Area 15 Min Each Region Completed 06/07/2023 51867 Therapy Proc, Neuromuscular Reeducation Of Movement Completed 06/07/2023 66107 Therapy Proc 1/> Area 15Min Ea Completed 06/05/2023 45688 Therapeutic Activities Direc t, Each 15 Minutes Completed 06/05/2023 55588 Manual Specialist Physicians 1/> Area 15 Min Each Region Completed 06/05/2023 30912 Therapy Proc, Neuromuscular Reeducation Of Movement Completed 06/05/2023 37522 Therapy Proc 1/> Area 15Min Ea Completed 06/05/2023 37715 Hot/Cold Pack Completed 06/03/2023 93458 Hot/Cold Pack Completed 06/03/2023 33587 Manual Specialist Physicians 1/> Area 15 Min Each Region Completed 06/03/2023 50148 Therapy Proc 1/> Area 15Min Ea Completed 06/03/2023 49589 Therapeutic Activities Direc t, Each 15 Minutes Completed 06/03/2023 68565 Therapy Proc, Neuromuscular Reeducation Of Movement Completed 05/31/2023 98036 Therapeutic Activities Direc t, Each 15 Minutes Completed 05/31/2023 20054 [facility] Specialist Physicians 1/> Area 15 Min Each Region Completed 05/31/2023 67041 Therapy Proc, Neuromuscular Reeducation Of Movement Completed 05/31/2023 00390 Hot/Cold Pack Completed 05/29/2023 50471 Therapy Proc, Neuromuscular Reeducation Of Movement Completed 05/29/2023 62036 Hot/Cold Pack Completed 05/29/2023 63980 Manual Specialist Physicians 1/> Area 15 Min Each Region Completed 05/29/2023 08832 Therapeutic Procedure Group Completed 05/29/2023 03552 Therapeutic Activities Direc t, Each 15 Minutes Completed 05/27/2023 76681 Therapeutic Activities Direc t, Each 15 Minutes Completed 05/27/2023 15753 Therapeutic Procedure Group Completed 05/27/2023 78692 Manual Specialist Physicians 1/> Area 15 Min Each Region Completed 05/27/2023 67603 Therapy Proc, Neuromuscular Reeducation Of Movement Completed 05/27/2023 37207 Hot/Cold Pack Completed 05/24/2023 85561 Manual Specialist Physicians 1/> Area 15 Min Each Region Completed 05/24/2023 21107 Hot/Cold Pack Completed 05/24/2023 49222 Therapy Proc 1/> Area 15Min Ea Completed 05/24/2023 81749 Therapy Proc, Neuromuscular Reeducation Of Movement Completed 05/24/2023 20874 Therapeutic Activities Direc t, Each 15 Minutes Completed 05/22/2023 00239 Therapeutic Activities Direc t, Each 15 Minutes Completed 05/22/2023 89729 Manual Specialist Physicians 1/> Area 15 Min Each Region Completed 05/22/2023 60506 Therapy Proc, Neuromuscular Reeducation Of Movement Completed 05/22/2023 82309 Therapy Proc 1/> Area 15Min Ea Completed 05/22/2023 16647 Hot/Cold Pack Completed 05/20/2023 31775 Therapeutic Activities Direc t, Each 15 Minutes Completed 05/20/2023 09030 [facility]ist Physicians 1/> Area 15 Min Each Region Completed 05/20/2023 95975 Therapy Proc, Neuromuscular Reeducation Of Movement Completed 05/20/2023 01536 Therapy Proc 1/> Area 15Min Ea Completed 05/20/2023 61630 Hot/Cold Pack Completed 05/17/2023 66828 Therapy Proc, Neuromuscular Reeducation Of Movement Completed 05/17/2023 38493 Hot/Cold Pack Completed 05/17/2023 11398 Therapy Proc 1/> Area 15Min Ea Completed 05/17/2023 14161 Manual Specialist Physicians 1/> Area 15 Min Each Region Completed 05/17/2023 07904 Therapeutic Activities Direc t, Each 15 Minutes Completed 05/15/2023 75997 Therapeutic Activities Direc t, Each 15 Minutes Completed 05/15/2023 80222 [facility]ist Physicians 1/> Area 15 Min Each Region Completed 05/15/2023 74969 Therapy Proc, Neuromuscular Reeducation Of Movement Completed 05/15/2023 77267 Therapy Proc 1/> Area 15Min Ea Completed 05/15/2023 06865 Hot/Cold Pack Completed 2023 14331 Therapeutic Activities Direc t, Each 15 Minutes Completed 2023 38139 [facility] Physicians 1/> Area 15 Min Each Region Completed 2023 43845 Therapy Proc, Neuromuscular Reeducation Of Movement Completed 2023 51179 Therapy Proc 1/> Area 15Min Ea Completed 2023 04082 Hot/Cold Pack Completed 05/10/2023 07196 Hot/Cold Pack Completed 05/10/2023 78813 Therapy Proc 1/> Area 15Min Ea Completed 05/10/2023 57637 [facility]ist Physicians 1/> Area 15 Min Each Region Completed 05/10/2023 83422 Therapeutic Activities Direc t, Each 15 Minutes Completed 05/10/2023 56584 Therapy Proc, Neuromuscular Reeducation Of Movement Completed 05/08/2023 41876 Therapeutic Activities Direc t, Each 15 Minutes Completed 05/08/2023 03183 [facility]ist Physicians 1/> Area 15 Min Each Region Completed 05/08/2023 04332 Therapy Proc, Neuromuscular Reeducation Of Movement Completed 05/08/2023 79306 Therapy Proc 1/> Area 15Min Ea Completed 05/08/2023 11417 Hot/Cold Pack Completed 05/06/2023 52749 Manual Specialist Physicians 1/> Area 15 Min Each Region Completed 05/06/2023 62090 Hot/Cold Pack Completed 05/06/2023 74410 Therapy Proc 1/> Area 15Min Ea Completed 05/06/2023 53778 Therapy Proc, Neuromuscular Reeducation Of Movement Completed 05/06/2023 57087 Therapeutic Activities Direc t, Each 15 Minutes Completed 05/02/2023 65119 Therapeutic Activities Direc t, Each 15 Minutes Completed 05/02/2023 46599 Manual Specialist Physicians 1/> Area 15 Min Each Region Completed 05/02/2023 59361 Therapy Proc, Neuromuscular Reeducation Of Movement Completed 05/02/2023 52339 Therapy Proc 1/> Area 15Min Ea Completed 04/30/2023 13011 Manual Specialist Physicians 1/> Area 15 Min Each Region Completed 04/30/2023 61292 Hot/Cold Pack Completed 04/30/2023 64151 Therapy Proc, Neuromuscular Reeducation Of Movement Completed 04/30/2023 95256 Therapy Proc 1/> Area 15Min Ea Completed 04/24/2023 85416 Therapy Proc, Neuromuscular Reeducation Of Movement Completed 04/24/2023 87751 Therapy Proc 1/> Area 15Min Ea Completed 04/24/2023 92478 [facility]ist Physicians 1/> Area 15 Min Each Region Completed 04/22/2023 88938 Manual Specialist Physicians 1/> Area 15 Min Each Region Completed 04/22/2023 32198 Therapy Proc, Neuromuscular Reeducation Of Movement Completed 04/22/2023 92461 Therapy Proc 1/> Area 15Min Ea Completed 04/22/2023 08233 Hot/Cold Pack Completed 04/19/2023 22606 Manual Specialist Physicians 1/> Area 15 Min Each Region Completed 04/19/2023 32082 Therapy Proc, Neuromuscular Reeducation Of Movement Completed 04/19/2023 16133 Therapy Proc 1/> Area 15Min Ea Completed 04/19/2023 57130 Hot/Cold Pack Completed 04/18/2023 77261 Manual Specialist Physicians 1/> Area 15 Min Each Region Completed 04/18/2023 80821 Therapy Proc, Neuromuscular Reeducation Of Movement Completed 04/18/2023 87128 Therapy Proc 1/> Area 15Min Ea Completed 04/15/2023 63863 Therapy Proc, Neuromuscular Reeducation Of Movement Completed 04/15/2023 24611 Hot/Cold Pack Completed 04/15/2023 08000 Therapy Proc 1/> Area 15Min Ea Completed 04/15/2023 66459 Manual [facility]ist Physicians 1/> Area 15 Min Each Region Completed 04/12/2023 33380 Manual [facility]ist Physicians 1/> Area 15 Min Each Region Completed 04/12/2023 50179 Therapy Proc, Neuromuscular Reeducation Of Movement Completed 04/12/2023 19280 Therapy Proc 1/> Area 15Min Ea Completed 04/12/2023 08109 Hot/Cold Pack Completed 04/10/2023 93275 Manual [facility]ist Physicians 1/> Area 15 Min Each Region Completed 04/10/2023 05919 Therapy Proc, Neuromuscular Reeducation Of Movement Completed 04/10/2023 78130 Therapy Proc 1/> Area 15Min Ea Completed 04/08/2023 86850 [facility]ist Physicians 1/> Area 15 Min Each Region Completed 04/08/2023 09819 Therapy Proc, Neuromuscular Reeducation Of Movement Completed 04/08/2023 82718 Therapy Proc 1/> Area 15Min Ea Completed 04/05/2023 20789 Therapy Proc 1/> Area 15Min Ea Completed 04/05/2023 20168 Therapy Proc, Neuromuscular Reeducation Of Movement Completed 04/05/2023 59925 [facility] Physicians 1/> Area 15 Min Each Region Completed 04/03/2023 99803 Manual Specialist Physicians 1/> Area 15 Min Each Region Completed 04/03/2023 22642 Therapy Proc, Neuromuscular Reeducation Of Movement Completed 04/03/2023 36023 Therapy Proc 1/> Area 15Min Ea Completed 04/01/2023 06053 [facility]ist Physicians 1/> Area 15 Min Each Region Completed 04/01/2023 68826 Therapy Proc, Neuromuscular Reeducation Of Movement Completed 04/01/2023 28480 Therapy Proc 1/> Area 15Min Ea Completed 03/29/2023 89357 [facility]ist Physicians 1/> Area 15 Min Each Region Completed 03/29/2023 17697 Therapy Proc, Neuromuscular Reeducation Of Movement Completed 03/29/2023 59573 Therapy Proc 1/> Area 15Min Ea Completed 03/27/2023 49791 [facility] Physicians 1/> Area 15 Min Each Region Completed 03/27/2023 76029 Therapy Proc, Neuromuscular Reeducation Of Movement Completed 03/27/2023 37921 Therapy Proc 1/> Area 15Min Ea Completed 03/25/2023 26559 Therapy Proc 1/> Area 15Min Ea Completed 03/25/2023 42352 [facility] Phys[facility] 1/> Area 15 Min Each Region Completed 03/25/2023 55738 Therapy Proc, Neuromuscular Reeducation Of Movement Completed 03/22/2023 98869 [facility] Physicians 1/> Area 15 Min Each Region Completed 03/22/2023 79601 Therapy Proc, Neuromuscular Reeducation Of Movement Completed 03/22/2023 14169 Therapy Proc 1/> Area 15Min Ea Completed 03/20/2023 14823 [facility]ist Physicians 1/> Area 15 Min Each Region Completed 03/20/2023 58266 Therapy Proc, Neuromuscular Reeducation Of Movement Completed 03/20/2023 80050 Therapy Proc 1/> Area 15Min Ea Completed 03/18/2023 37647 [facility] Phys[facility] 1/> Area 15 Min Each Region Completed 03/18/2023 02607 Therapy Proc 1/> Area 15Min Ea Completed 03/18/2023 08734 Therapy Proc, Neuromuscular Reeducation Of Movement Completed 03/15/2023 55629 [facility] Phys[facility] 1/> Area 15 Min Each Region Completed 03/15/2023 36338 Therapy Proc, Neuromuscular Reeducation Of Movement Completed 03/15/2023 08404 Therapy Proc 1/> Area 15Min Ea Completed 03/13/2023 77448 Physical Therapy Evaluation Moderate Complexity Completed 03/13/2023 76560 [facility] Phys[facility] 1/> Area 15 Min Each Region Completed 03/13/2023 78795 Therapy Proc 1/> Area 15Min Ea Completed [...] EspinozaT 08/02/2023 M25.511 Pain in right shoulder Oziel [...] Appointment(s):* 09/05/2023 9:30 am - [place] 09/06/2023 10:30 am - Dawson Almodovar DO [place] Functional Status Description No Information Available Mental Status Description No Information Available Referrals Description No Information Available"
--- OUTSIDE RECORDS SUMMARY | 2023-10-11 13:15 | External Medical Summary ---
Author Name Unknown Address Unknown Organization K1C:[facility] [address] [place] [address] Laboratory Report Ordering Provider Test Date Status JAMAL CHARLES 09/05/2023 08:45 Final Observation Date Value Abnormality Reference (Units ) Status Glucose 09/05/2023 15:20 88 70-110 (MG/DL ) Final BUN 09/05/2023 15:20 23 6-25 (MG/DL) Final Creatinine 09/05/2023 15:20 0.8 0.5-1.2 (MG/ DL) Final Sodium 09/05/2023 15:20 138 135-145 (MEQ/ L) Final Potassium 09/05/2023 15:20 4.1 3.5-5.0 (MEQ/ L) Final Cl 09/05/2023 15:20 100 95-107 (MEQ/L ) Final CO2 09/05/2023 15:20 29 24-31 (MEQ/L) Final Calcium 09/05/2023 15:20 9.4 8.5-10.6 (MG/ DL) Final GFR (estimated) 09/05/2023 15:20 72 >60 (ML /MIN/1.73 SQM) Final Performing Location [facility] [address] [place] [id number]
--- OUTSIDE RECORDS SUMMARY | 2023-10-11 13:16 | External Medical Summary | Continuity of Care Document ---
Author Name Unknown Organization [facility] Address [address] [place] [address] Phone [phone] Problems Active Problems Provider Date Essential hypertension [...] SIG Qnty Indications Order ing Provider Date [id number] Tablets 2 tablets by mouth every day 30tabs R60.0 Dawson Almodovar DO 10/05/2022 Multi + Blakeslee-3 Adult GummiesChewtabs 1 by mouth every day Dawson Almodovar DO 08/08/2022 Vitamin B ComplexTablets 1 by mouth every day Dawson Almodovar DO 08/08/2022 Losartan Potassium/Hydrochlorothi [id number] Tablets 1 by mouth every day 90tabs I10 Dawson Almodovar DO 03/21/2020 Juice Plus Fibre` Dawson Almodovar DO 02/19/2018 Aspirin Adult Low Vxcl69lw Tablets DR 1 by mouth every day Unknown Citalopram Cfnbtklltsad51ef Tablets 1 by mouth every day 90tabs F41.1 Dawson CintiaAlvin Almodovar, DO Vitamin D3 Maximum Jdnexmbp115got (5000 Ut) Capsules 1 by mouth once daily Unknown Immunizations CPT Code Status Date Vaccine Lot # [id number] Given 07/14/2009 Pneumococcal Vaccine/Pneu movax 23 10986 Refused 10/19/2022 Shingrix 66784 Refused 08/08/2022 Pneumococcal Conjugate-Pr evnar 20 47051 Refused 08/08/2022 Influenza Vac, Split, Preservative Free High Dose Age 65 & > 46589 Refused 04/20/2022 Moderna Sars-Co v-2 (Cov-19) vacc,100 mcg/ 0.5 mL 12Y+EMR Doc Only [id number] Refused 10/16/2021 Influenza Virus Vaccine, Quadrivalent (Cciiv4), Derived From Cell 34839 Refused 10/16/2021 Shingrix 70483 Refused 10/16/2021 Pneumococcal Conjugate-Pr evnar 13 67750 Refused 03/20/2021 Pfizer Sars-Cov -2 (Cov-19) vacc 30mcg/0.3ML 12Y+ EMR Doc Only [id number] Refused 04/17/2019 Influenza Vacci ne, Inactivated, Subunit, Adjuvanted, For Intrmusc 34023 Refused 01/29/2019 Tdap (Tetanus, diphtheria & acel. pertussis) Adacel or Boostrix 45267 Refused 01/29/2019 Pneumococcal Conjugate-Pr evnar 13 Vital [...] /min Weight 205.00 lb Weight 92.988 kg Results Test Acquired Date Facility Test Result H/L Range N ote CBC W/Diff 02/18/2023 [facility] [address] [place] [address] [phone] WBC 7.6 10^3/M3 3.1-9.2 RBC 4.19 10^6/M3 3.70-5.50 HGB 12.2 GR/DL 11.5-16.1 HCT 36.6 % 34.5-47.8 MCV 87.5 CUMICR 82.6-95.8 MCH 29.1 PICOGR 27.9-32.9 MCHC 33.3 % 32.6-35.4 RDW 14.9 % High 11.4-14.6 PLT 225 10^3/M3 140-350 MPV 8.8 CUMICR 7.0-10.6 %Neut 57.1 % 40.0-75.0 %Lymph 29.4 % 17.0-45.0 %[place] 8.6 % 1.0-11.0 %Eos 3.8 % 0.0-6.0 %[place] 1.1 % 0.0-2.0 #Neut 4.4 10^3/M3 1.5-8.0 #Lymph 2.2 10^3/M3 0.8-3.2 #[place] 0.7 10^3/M3 0.0-0.8 #Eos 0.3 10^3/m3 0.0-0.4 #[place] 0.1 10^3/m3 0.0-0.2 Comp. Met 02/18/2023 [facility] [address] [place] [address] [phone] Glucose 96 mg/dL 70-110 BUN 18 mg/dL 6-25 Creatinine 0.8 mg/dL 0.5-1.2 Sodium 140 mEq/L 135-145 Potassium 4.1 mEq/L 3.5-5.0 Chloride 103 mEq/L 95-107 Co-2 28 mEq/L 24-31 Alk Phos 65 IU/L 43-122 Alt(SGPT) 8 IU/L Low 10-40 Ast(Sgot) 16 IU/L 3-42 T.Bilirubin 0.7 mg/dL 0.1-1.3 Calcium 9.7 mg/dL 8.5-10.6 Tot.Protein 5.9 g/dL 5.8-8.0 Albumin 4.0 g/dL 3.0-5.2 Globulin 1.9 g/dL Low 2.0-3.4 GFR 72 ML/MIN/1.73SQM >60 Lipid 02/18/2023 [facility] [address] [place] [address] [phone] Cholesterol 164 mg/dL 0-200 1 Triglyceride 79 mg/dL 0-150 2 HDLD 62 mg/dL See Comment 3 Measured LDL 99 mg/dL 0-130 4 Calc VLDL 15.8 mg/dL See Comment 5 Chol/HDL 2.6 RATIO See Comment 6 Non-HDL 102 mg/dL See Comment 7 Laboratory test finding 02/18/2023 [facility] [address] [place] [address] [phone] Vitd-25Oh 77 ng/mL 30-100 VB12 411 pg/mL 230-1050 1 CHOLESTEROL Less than 200mg/dl Low risk 201-239 mg/dl Borderline risk Equal to or greater 240mg/dl High risk 2 TRIGLYCERIDES Less than 150mg/dl Normal 150-199mg/dl Borderline 200-499mg/dl High Greater than 500mg/dl Very High 3 HDL <40mg/dl Elevated Risk 41-59mg/dl Risk >=60mg/dl Least Risk 4 LDL <100mg/dl Optimal 100-129mg/dl Near Optimal 130-159mg/dl Borderline High 160-189mg/dl High >=190 Very High 5 VLDL Less than 30mg/dl Normal 6 CHOL/HDL <4.0 Optimal 4.0-5.0 Borderline >6.0 High Risk 7 NON-HDL 30mg/dl higher than LDL Target Procedures Date Code Description Status 07/29/2023 59547 Manual Straightener 1/> Area 15 Min Each Region Completed 07/29/2023 09893 Therapeutic Activities Direc t, Each 15 Minutes Completed 07/29/2023 20907 Hot/Cold Pack Completed 07/29/2023 17234 Therapy Proc, Neuromuscular Reeducation Of Movement Completed 07/29/2023 14867 Therapy Proc 1/> Area 15Min Ea Completed 07/22/2023 36415 Therapeutic Activities Direc t, Each 15 Minutes Completed 07/22/2023 29451 Manual Straightener 1/> Area 15 Min Each Region Completed 07/22/2023 25682 Therapy Proc, Neuromuscular Reeducation Of Movement Completed 07/22/2023 77395 Therapy Proc 1/> Area 15Min Ea Completed 07/22/2023 86081 Hot/Cold Pack Completed 07/19/2023 40191 Therapeutic Activities Direc t, Each 15 Minutes Completed 07/19/2023 03927 Manual Straightener 1/> Area 15 Min Each Region Completed 07/19/2023 63672 Therapy Proc, Neuromuscular Reeducation Of Movement Completed 07/19/2023 61289 Therapy Proc 1/> Area 15Min Ea Completed 07/19/2023 20252 Hot/Cold Pack Completed 07/15/2023 43411 Therapy Proc, Neuromuscular Reeducation Of Movement Completed 07/15/2023 01385 Hot/Cold Pack Completed 07/15/2023 44128 Manual Straightener 1/> Area 15 Min Each Region Completed 07/15/2023 32681 Therapeutic Activities Direc t, Each 15 Minutes Completed 07/12/2023 91783 Therapeutic Activities Direc t, Each 15 Minutes Completed 07/12/2023 26820 Manual Straightener 1/> Area 15 Min Each Region Completed 07/12/2023 41940 Therapy Proc, Neuromuscular Reeducation Of Movement Completed 07/12/2023 44082 Therapy Proc 1/> Area 15Min Ea Completed 07/12/2023 40307 Hot/Cold Pack Completed 07/10/2023 93911 Therapeutic Activities Direc t, Each 15 Minutes Completed 07/10/2023 93977 Manual Straightener 1/> Area 15 Min Each Region Completed 07/10/2023 74167 Therapy Proc, Neuromuscular Reeducation Of Movement Completed 07/10/2023 73425 Therapy Proc 1/> Area 15Min Ea Completed 07/10/2023 08629 Hot/Cold Pack Completed 07/08/2023 18158 Therapy Proc 1/> Area 15Min Ea Completed 07/08/2023 02780 Hot/Cold Pack Completed 07/08/2023 17691 Therapy Proc, Neuromuscular Reeducation Of Movement Completed 07/08/2023 27468 Therapeutic Activities Direc t, Each 15 Minutes Completed 07/08/2023 45246 Manual Straightener 1/> Area 15 Min Each Region Completed 07/05/2023 44251 Therapeutic Activities Direc t, Each 15 Minutes Completed 07/05/2023 04276 Manual Straightener 1/> Area 15 Min Each Region Completed 07/05/2023 43076 Therapy Proc, Neuromuscular Reeducation Of Movement Completed 07/05/2023 32057 Therapy Proc 1/> Area 15Min Ea Completed 07/05/2023 03158 Hot/Cold Pack Completed 07/03/2023 93104 Therapeutic Activities Direc t, Each 15 Minutes Completed 07/03/2023 15548 Manual Straightener 1/> Area 15 Min Each Region Completed 07/03/2023 26955 Therapy Proc, Neuromuscular Reeducation Of Movement Completed 07/03/2023 79737 Therapy Proc 1/> Area 15Min Ea Completed 07/03/2023 65662 Hot/Cold Pack Completed 07/01/2023 47930 Therapy Proc, Neuromuscular Reeducation Of Movement Completed 07/01/2023 07645 Hot/Cold Pack Completed 07/01/2023 14539 Therapy Proc 1/> Area 15Min Ea Completed 07/01/2023 90737 Manual Straightener 1/> Area 15 Min Each Region Completed 07/01/2023 74849 Therapeutic Activities Direc t, Each 15 Minutes Completed 06/28/2023 68777 Therapeutic Activities Direc t, Each 15 Minutes Completed 06/28/2023 89682 Manual Straightener 1/> Area 15 Min Each Region Completed 06/28/2023 72799 Therapy Proc, Neuromuscular Reeducation Of Movement Completed 06/28/2023 22745 Therapy Proc 1/> Area 15Min Ea Completed 06/24/2023 70652 Therapeutic Activities Direc t, Each 15 Minutes Completed 06/24/2023 78613 Manual Straightener 1/> Area 15 Min Each Region Completed 06/24/2023 79232 Therapy Proc, Neuromuscular Reeducation Of Movement Completed 06/24/2023 24695 Therapy Proc 1/> Area 15Min Ea Completed 06/24/2023 64939 Hot/Cold Pack Completed 06/21/2023 17593 Therapy Proc 1/> Area 15Min Ea Completed 06/21/2023 81096 Hot/Cold Pack Completed 06/21/2023 67587 Therapeutic Activities Direc t, Each 15 Minutes Completed 06/21/2023 46175 Manual Straightener 1/> Area 15 Min Each Region Completed 06/21/2023 51401 Therapy Proc, Neuromuscular Reeducation Of Movement Completed 06/19/2023 00916 Therapeutic Activities Direc t, Each 15 Minutes Completed 06/19/2023 73341 Manual Straightener 1/> Area 15 Min Each Region Completed 06/19/2023 93162 Therapy Proc, Neuromuscular Reeducation Of Movement Completed 06/19/2023 36815 Therapy Proc 1/> Area 15Min Ea Completed 06/19/2023 58633 Hot/Cold Pack Completed 06/17/2023 05594 Therapeutic Activities Direc t, Each 15 Minutes Completed 06/17/2023 40378 Manual Straightener 1/> Area 15 Min Each Region Completed 06/17/2023 83770 Therapy Proc, Neuromuscular Reeducation Of Movement Completed 06/17/2023 18879 Therapy Proc 1/> Area 15Min Ea Completed 06/17/2023 78351 Hot/Cold Pack Completed 06/14/2023 45384 Therapy Proc, Neuromuscular Reeducation Of Movement Completed 06/14/2023 11946 Hot/Cold Pack Completed 06/14/2023 61805 Therapy Proc 1/> Area 15Min Ea Completed 06/14/2023 81796 Manual Straightener 1/> Area 15 Min Each Region Completed 06/14/2023 98465 Therapeutic Activities Direc t, Each 15 Minutes Completed 06/12/2023 31805 Therapeutic Activities Direc t, Each 15 Minutes Completed 06/12/2023 40977 Manual Straightener 1/> Area 15 Min Each Region Completed 06/12/2023 13991 Therapy Proc, Neuromuscular Reeducation Of Movement Completed 06/12/2023 51389 Therapy Proc 1/> Area 15Min Ea Completed 06/12/2023 03880 Hot/Cold Pack Completed 06/07/2023 05683 Therapeutic Activities Direc t, Each 15 Minutes Completed 06/07/2023 94805 Manual Straightener 1/> Area 15 Min Each Region Completed 06/07/2023 69817 Therapy Proc, Neuromuscular Reeducation Of Movement Completed 06/07/2023 25020 Therapy Proc 1/> Area 15Min Ea Completed 06/05/2023 26564 Therapeutic Activities Direc t, Each 15 Minutes Completed 06/05/2023 80568 Hot/Cold Pack Completed 06/05/2023 48793 Therapy Proc 1/> Area 15Min Ea Completed 06/05/2023 18131 Manual Straightener 1/> Area 15 Min Each Region Completed 06/05/2023 26213 Therapy Proc, Neuromuscular Reeducation Of Movement Completed 06/03/2023 27143 Therapeutic Activities Direc t, Each 15 Minutes Completed 06/03/2023 08875 Manual Straightener 1/> Area 15 Min Each Region Completed 06/03/2023 93163 Therapy Proc, Neuromuscular Reeducation Of Movement Completed 06/03/2023 69838 Therapy Proc 1/> Area 15Min Ea Completed 06/03/2023 51573 Hot/Cold Pack Completed 05/31/2023 57425 Therapeutic Activities Direc t, Each 15 Minutes Completed 05/31/2023 25714 Manual Straightener 1/> Area 15 Min Each Region Completed 05/31/2023 08199 Therapy Proc, Neuromuscular Reeducation Of Movement Completed 05/31/2023 59485 Hot/Cold Pack Completed 05/29/2023 21743 Therapeutic Procedure Group Completed 05/29/2023 75414 Hot/Cold Pack Completed 05/29/2023 41091 Therapy Proc, Neuromuscular Reeducation Of Movement Completed 05/29/2023 63125 Manual Straightener 1/> Area 15 Min Each Region Completed 05/29/2023 07016 Therapeutic Activities Direc t, Each 15 Minutes Completed 05/27/2023 16424 Therapeutic Activities Direc t, Each 15 Minutes Completed 05/27/2023 39021 Therapeutic Procedure Group Completed 05/27/2023 22825 Manual Straightener 1/> Area 15 Min Each Region Completed 05/27/2023 68289 Therapy Proc, Neuromuscular Reeducation Of Movement Completed 05/27/2023 46993 Hot/Cold Pack Completed 05/24/2023 06365 Hot/Cold Pack Completed 05/24/2023 96958 Therapy Proc 1/> Area 15Min Ea Completed 05/24/2023 18317 Therapy Proc, Neuromuscular Reeducation Of Movement Completed 05/24/2023 42631 Therapeutic Activities Direc t, Each 15 Minutes Completed 05/24/2023 39466 Manual Straightener 1/> Area 15 Min Each Region Completed 05/22/2023 81749 Therapeutic Activities Direc t, Each 15 Minutes Completed 05/22/2023 41852 Manual Straightener 1/> Area 15 Min Each Region Completed 05/22/2023 00088 Therapy Proc, Neuromuscular Reeducation Of Movement Completed 05/22/2023 30458 Therapy Proc 1/> Area 15Min Ea Completed 05/22/2023 55198 Hot/Cold Pack Completed 05/20/2023 07092 Therapeutic Activities Direc t, Each 15 Minutes Completed 05/20/2023 45871 Manual Straightener 1/> Area 15 Min Each Region Completed 05/20/2023 95350 Therapy Proc, Neuromuscular Reeducation Of Movement Completed 05/20/2023 42353 Therapy Proc 1/> Area 15Min Ea Completed 05/20/2023 85498 Hot/Cold Pack Completed 05/17/2023 29377 Therapy Proc 1/> Area 15Min Ea Completed 05/17/2023 68320 Hot/Cold Pack Completed 05/17/2023 17211 Therapy Proc, Neuromuscular Reeducation Of Movement Completed 05/17/2023 67265 Manual Straightener 1/> Area 15 Min Each Region Completed 05/17/2023 25299 Therapeutic Activities Direc t, Each 15 Minutes Completed 05/15/2023 96927 Therapeutic Activities Direc t, Each 15 Minutes Completed 05/15/2023 36416 Manual Straightener 1/> Area 15 Min Each Region Completed 05/15/2023 78924 Therapy Proc, Neuromuscular Reeducation Of Movement Completed 05/15/2023 21227 Therapy Proc 1/> Area 15Min Ea Completed 05/15/2023 21711 Hot/Cold Pack Completed 2023 72418 Therapeutic Activities Direc t, Each 15 Minutes Completed 2023 80124 Manual Straightener 1/> Area 15 Min Each Region Completed 2023 81151 Therapy Proc, Neuromuscular Reeducation Of Movement Completed 2023 26991 Therapy Proc 1/> Area 15Min Ea Completed 2023 95880 Hot/Cold Pack Completed 05/10/2023 98378 Therapeutic Activities Direc t, Each 15 Minutes Completed 05/10/2023 11282 Hot/Cold Pack Completed 05/10/2023 80293 Therapy Proc 1/> Area 15Min Ea Completed 05/10/2023 33308 Manual Straightener 1/> Area 15 Min Each Region Completed 05/10/2023 64821 Therapy Proc, Neuromuscular Reeducation Of Movement Completed 05/08/2023 44937 Therapeutic Activities Direc t, Each 15 Minutes Completed 05/08/2023 59962 Manual Straightener 1/> Area 15 Min Each Region Completed 05/08/2023 34129 Therapy Proc, Neuromuscular Reeducation Of Movement Completed 05/08/2023 30364 Therapy Proc 1/> Area 15Min Ea Completed 05/08/2023 30818 Hot/Cold Pack Completed 05/06/2023 48676 Therapeutic Activities Direc t, Each 15 Minutes Completed 05/06/2023 97445 Manual Straightener 1/> Area 15 Min Each Region Completed 05/06/2023 04370 Therapy Proc, Neuromuscular Reeducation Of Movement Completed 05/06/2023 82545 Therapy Proc 1/> Area 15Min Ea Completed 05/06/2023 59426 Hot/Cold Pack Completed 05/02/2023 11798 Therapeutic Activities Direc t, Each 15 Minutes Completed 05/02/2023 18981 Therapy Proc 1/> Area 15Min Ea Completed 05/02/2023 33350 Therapy Proc, Neuromuscular Reeducation Of Movement Completed 05/02/2023 67406 Manual Straightener 1/> Area 15 Min Each Region Completed 04/30/2023 88005 Manual Straightener 1/> Area 15 Min Each Region Completed 04/30/2023 48445 Therapy Proc, Neuromuscular Reeducation Of Movement Completed 04/30/2023 43464 Therapy Proc 1/> Area 15Min Ea Completed 04/30/2023 95811 Hot/Cold Pack Completed 04/24/2023 50571 Manual Straightener 1/> Area 15 Min Each Region Completed 04/24/2023 47194 Therapy Proc, Neuromuscular Reeducation Of Movement Completed 04/24/2023 14980 Therapy Proc 1/> Area 15Min Ea Completed 04/22/2023 41255 Hot/Cold Pack Completed 04/22/2023 50241 Therapy Proc 1/> Area 15Min Ea Completed 04/22/2023 27436 Manual Straightener 1/> Area 15 Min Each Region Completed 04/22/2023 21829 Therapy Proc, Neuromuscular Reeducation Of Movement Completed 04/19/2023 47993 Therapy Proc, Neuromuscular Reeducation Of Movement Completed 04/19/2023 61901 Therapy Proc 1/> Area 15Min Ea Completed 04/19/2023 87178 Hot/Cold Pack Completed 04/19/2023 90236 Manual Straightener 1/> Area 15 Min Each Region Completed 04/18/2023 46749 Manual Straightener 1/> Area 15 Min Each Region Completed 04/18/2023 51771 Therapy Proc, Neuromuscular Reeducation Of Movement Completed 04/18/2023 13451 Therapy Proc 1/> Area 15Min Ea Completed 04/15/2023 57605 Manual Straightener 1/> Area 15 Min Each Region Completed 04/15/2023 55689 Therapy Proc, Neuromuscular Reeducation Of Movement Completed 04/15/2023 02783 Therapy Proc 1/> Area 15Min Ea Completed 04/15/2023 58813 Hot/Cold Pack Completed 04/12/2023 57112 Therapy Proc, Neuromuscular Reeducation Of Movement Completed 04/12/2023 63203 Hot/Cold Pack Completed 04/12/2023 18395 Therapy Proc 1/> Area 15Min Ea Completed 04/12/2023 51818 Manual Straightener 1/> Area 15 Min Each Region Completed 04/10/2023 58859 Manual Straightener 1/> Area 15 Min Each Region Completed 04/10/2023 72402 Therapy Proc, Neuromuscular Reeducation Of Movement Completed 04/10/2023 26184 Therapy Proc 1/> Area 15Min Ea Completed 04/08/2023 61303 Manual Straightener 1/> Area 15 Min Each Region Completed 04/08/2023 77369 Therapy Proc, Neuromuscular Reeducation Of Movement Completed 04/08/2023 67650 Therapy Proc 1/> Area 15Min Ea Completed 04/05/2023 39893 Manual Straightener 1/> Area 15 Min Each Region Completed 04/05/2023 29307 Therapy Proc, Neuromuscular Reeducation Of Movement Completed 04/05/2023 30142 Therapy Proc 1/> Area 15Min Ea Completed 04/03/2023 92383 Therapy Proc 1/> Area 15Min Ea Completed 04/03/2023 17014 Manual Straightener 1/> Area 15 Min Each Region Completed 04/03/2023 86526 Therapy Proc, Neuromuscular Reeducation Of Movement Completed 04/01/2023 80515 Manual Straightener 1/> Area 15 Min Each Region Completed 04/01/2023 24219 Therapy Proc, Neuromuscular Reeducation Of Movement Completed 04/01/2023 20512 Therapy Proc 1/> Area 15Min Ea Completed 03/29/2023 28740 Manual Straightener 1/> Area 15 Min Each Region Completed 03/29/2023 67120 Therapy Proc, Neuromuscular Reeducation Of Movement Completed 03/29/2023 61236 Therapy Proc 1/> Area 15Min Ea Completed 03/27/2023 32163 Manual Straightener 1/> Area 15 Min Each Region Completed 03/27/2023 47158 Therapy Proc, Neuromuscular Reeducation Of Movement Completed 03/27/2023 61698 Therapy Proc 1/> Area 15Min Ea Completed 03/25/2023 92480 Manual Straightener 1/> Area 15 Min Each Region Completed 03/25/2023 73611 Therapy Proc, Neuromuscular Reeducation Of Movement Completed 03/25/2023 75353 Therapy Proc 1/> Area 15Min Ea Completed 03/22/2023 03471 Therapy Proc, Neuromuscular Reeducation Of Movement Completed 03/22/2023 06123 Therapy Proc 1/> Area 15Min Ea Completed 03/22/2023 47793 Manual Straightener 1/> Area 15 Min Each Region Completed 03/20/2023 34221 Manual Straightener 1/> Area 15 Min Each Region Completed 03/20/2023 72281 Therapy Proc, Neuromuscular Reeducation Of Movement Completed 03/20/2023 71614 Therapy Proc 1/> Area 15Min Ea Completed 03/18/2023 17879 Manual Straightener 1/> Area 15 Min Each Region Completed 03/18/2023 42796 Therapy Proc, Neuromuscular Reeducation Of Movement Completed 03/18/2023 10842 Therapy Proc 1/> Area 15Min Ea Completed 03/15/2023 18208 Manual Straightener 1/> Area 15 Min Each Region Completed 03/15/2023 40098 Therapy Proc, Neuromuscular Reeducation Of Movement Completed 03/15/2023 30067 Therapy Proc 1/> Area 15Min Ea Completed 03/13/2023 95247 Physical Therapy Evaluation Moderate Complexity Completed 03/13/2023 57697 Manual Straightener 1/> Area 15 Min Each Region Completed 03/13/2023 56951 Therapy Proc 1/> Area 15Min Ea Completed 02/18/2023 82598 Venipuncture Routine Complet ed Medical Devices Description No Information Available Encounters Type Date Location Provider Dx Diagnosis Office [place]10 Essential (pr imary) hypertension 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 F41.1 Generalized anxiety disorder M15.0 Primary generalized (osteo)arthritis Assessments Date Code Description Provider 07/29/2023 R26.2 Difficulty in wa [place]king, not elsewhere classified Aki Garcia DPT 07/29/2023 M25.511 Pain in right shoulder Oziel Garcia, NOE 07/26/2023 R26.2 Difficulty in wa [place]king, not elsewhere classified Aki Garcia DPT 07/26/2023 M25.511 Pain in right shoulder [...] 04/08/2023 M25.511 Pain in right shoulder Oziel Garica, DPT 04/05/2023 R26.2 Difficulty in wa [place]king, [...] Pain in right shoulder Oziel Garcia, DPT 02/22/2023 I10 Essential (primary) hyperten vickie Dawson Almodovar, DO 02/22/2023 K21.9 Gastro-esophagea l reflux 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 Dawson Almodovar, DO 02/22/2023 F41.1 Generalized anxiety disorder Dawson Almodovar, 02/22/2023 M15.0 Primary generalized (osteo)a rthritis Dawson Almodovar, DO 02/18/2023 I10 Essential (primary) hyperten vickie Dawson Almodovar, DO 02/18/2023 I10 Essential (primary) hypertdania [facility] [place] 02/18/2023 E55.9 Vitamin D deficiency, unspec ified Dawson Almodovar, DO 02/18/2023 E55.9 Vitamin D deficiency, unspec ified [facility] - [place] 02/18/2023 E53.8 Deficiency of ot her specified B group vitamins Dawson Almodovar, DO 02/18/2023 E53.8 Deficiency of ot her specified B group vitamins [facility] - [place] Plan of Treatment Future Appointment(s):* 09/06/2023 10:30 am - Dawson Almodovar DO at [place] * 08/28/2023 10:30 am - [facility] [place] Functional Status Description No Information Available Mental Status Description No Information Available Referrals Description No Information Available"
--- OUTSIDE RECORDS SUMMARY | 2023-10-11 13:16 | External Medical Summary | Continuity of Care Document ---
Author Name Unknown Organization Family Practice [facility] Address [address] [place] [address] Phone [phone] Problems Active Problems Provider Date Essential hypertension [...] SIG Qnty Indications Order ing Provider Date Jffeffftxn22ce Tablets 2 tablets by mouth every day 30tabs R60.0 Dawson Almodovar DO 10/05/2022 Multi + [place]-3 Adult GummiesChewtabs 1 by mouth every day Dawson Almodovar DO 08/08/2022 Vitamin B ComplexTablets 1 by mouth every day Dawson Almodovar DO 08/08/2022 Losartan Potassium/Hydrochlorothi [id number] Tablets 1 by mouth every day 90tabs I10 Dawson Almodovar DO 03/21/2020 Juice Plus Fibre` Dawson Almodovar DO 02/19/2018 Aspirin Adult Low Erob57kd Tablets DR 1 by mouth every day Unknown Citalopram [id number] Tablets 1 by mouth every day 90tabs F41.1 Dawson CintiaAlvin Almodovar, DO Vitamin D3 Maximum [id number] (5000 Ut) Capsules 1 by mouth once daily Unknown Immunizations CPT Code Status Date Vaccine Lot # [id number] Given 07/14/2009 Pneumococcal Vaccine/Pneu movax 23 [id number] Refused 10/19/2022 Shingrix 76333 Refused 08/08/2022 Pneumococcal Conjugate-Pr evnar 20 26453 Refused 08/08/2022 Influenza Vac, Split, Preservative Free High Dose Age 65 & > 44916 Refused 04/20/2022 Moderna Sars-Co v-2 (Cov-19) vacc,100 mcg/ 0.5 mL 12Y+EMR Doc Only 30190 Refused 10/16/2021 Influenza Virus Vaccine, Quadrivalent (Cciiv4), Derived From Cell 69300 Refused 10/16/2021 Shingrix 10848 Refused 10/16/2021 Pneumococcal Conjugate-Pr evnar 13 40332 Refused 03/20/2021 Pfizer Sars-Cov -2 (Cov-19) vacc 30mcg/0.3ML 12Y+ EMR Doc Only 25640 Refused 04/17/2019 Influenza Vacci ne, Inactivated, Subunit, Adjuvanted, For Intrmusc 77037 Refused 01/29/2019 Tdap (Tetanus, diphtheria & acel. pertussis) Adacel or Boostrix 02614 Refused 01/29/2019 Pneumococcal Conjugate-Pr evnar 13 Vital [...] H/L Range N ote CBC W/Diff 02/18/2023 [facility]. [address] [place] [address] [phone] WBC 7.6 10^3/M3 3.1-9.2 RBC 4.19 10^6/M3 3.70-5.50 HGB 12.2 GR/DL 11.5-16.1 HCT 36.6 % 34.5-47.8 MCV 87.5 CUMICR 82.6-95.8 MCH 29.1 PICOGR 27.9-32.9 MCHC 33.3 % 32.6-35.4 RDW 14.9 % High 11.4-14.6 PLT 225 10^3/M3 140-350 MPV 8.8 CUMICR 7.0-10.6 %Neut 57.1 % 40.0-75.0 %Lymph 29.4 % 17.0-45.0 %[place] 8.6 % 1.0-11.0 %Eos 3.8 % 0.0-6.0 %Baso 1.1 % 0.0-2.0 #Neut 4.4 10^3/M3 1.5-8.0 #Lymph 2.2 10^3/M3 0.8-3.2 #[place] 0.7 10^3/M3 0.0-0.8 #Eos 0.3 10^3/m3 0.0-0.4 #Baso 0.1 10^3/m3 0.0-0.2 Comp. Met 02/18/2023 [facility]. [address] [place] [address] [phone] Glucose 96 mg/dL 70-110 BUN 18 mg/dL [...] 2.0-3.4 GFR 72 ML/MIN/1.73SQM >60 Lipid 02/18/2023 [facility]. [address] [place] [address] [phone] Cholesterol 164 mg/dL 0-200 1 Triglyceride 79 mg/dL 0-150 2 HDLD 62 mg/dL See Comment 3 Measured LDL 99 mg/dL 0-130 4 Calc VLDL 15.8 mg/dL See Comment 5 Chol/HDL 2.6 RATIO See Comment 6 Non-HDL 102 mg/dL See Comment 7 Laboratory test finding 02/18/2023 [facility]. [address] [place] [address] [phone] Vitd-25Oh 77 ng/mL 30-100 VB12 411 pg/mL [...] LDL Target Procedures Date Code Description Status 08/09/2023 95016 Manual Tunnel Heading Supervisor 1/> Area 15 Min Each Region Completed 08/09/2023 47570 Therapy Proc, Neuromuscular Reeducation Of Movement Completed 08/09/2023 97864 Therapy Proc 1/> Area 15Min Ea Completed 08/09/2023 51344 Hot/Cold Pack Completed 08/09/2023 34825 Therapeutic Activities Direc t, Each 15 Minutes Completed 08/05/2023 97814 Hot/Cold Pack Completed 08/05/2023 59365 Therapy Proc, Neuromuscular Reeducation Of Movement Completed 08/05/2023 49034 Manual Tunnel Heading Supervisor 1/> Area 15 Min Each Region Completed 08/05/2023 34807 Therapeutic Activities Direc t, Each 15 Minutes Completed 08/02/2023 72502 Therapeutic Activities Direc t, Each 15 Minutes Completed 08/02/2023 56536 Manual Tunnel Heading Supervisor 1/> Area 15 Min Each Region Completed 08/02/2023 02189 Therapy Proc, Neuromuscular Reeducation Of Movement Completed 08/02/2023 45335 Therapy Proc 1/> Area 15Min Ea Completed 08/02/2023 52756 Hot/Cold Pack Completed 07/29/2023 99964 Manual Tunnel Heading Supervisor 1/> Area 15 Min Each Region Completed 07/29/2023 50288 Hot/Cold Pack Completed 07/29/2023 62628 Therapy Proc 1/> Area 15Min Ea Completed 07/29/2023 47404 Therapy Proc, Neuromuscular Reeducation Of Movement Completed 07/29/2023 33408 Therapeutic Activities Direc t, Each 15 Minutes Completed 07/22/2023 90369 Therapeutic Activities Direc t, Each 15 Minutes Completed 07/22/2023 11589 Manual Tunnel Heading Supervisor 1/> Area 15 Min Each Region Completed 07/22/2023 74882 Therapy Proc, Neuromuscular Reeducation Of Movement Completed 07/22/2023 26454 Therapy Proc 1/> Area 15Min Ea Completed 07/22/2023 29574 Hot/Cold Pack Completed 07/19/2023 41254 Therapeutic Activities Direc t, Each 15 Minutes Completed 07/19/2023 36982 Manual Tunnel Heading Supervisor 1/> Area 15 Min Each Region Completed 07/19/2023 23852 Therapy Proc, Neuromuscular Reeducation Of Movement Completed 07/19/2023 36681 Therapy Proc 1/> Area 15Min Ea Completed 07/19/2023 95409 Hot/Cold Pack Completed 07/15/2023 47552 Manual Tunnel Heading Supervisor 1/> Area 15 Min Each Region Completed 07/15/2023 76127 Hot/Cold Pack Completed 07/15/2023 00364 Therapy Proc, Neuromuscular Reeducation Of Movement Completed 07/15/2023 43906 Therapeutic Activities Direc t, Each 15 Minutes Completed 07/12/2023 46293 Manual Tunnel Heading Supervisor 1/> Area 15 Min Each Region Completed 07/12/2023 74650 Therapy Proc, Neuromuscular Reeducation Of Movement Completed 07/12/2023 57664 Therapy Proc 1/> Area 15Min Ea Completed 07/12/2023 33936 Hot/Cold Pack Completed 07/12/2023 64483 Therapeutic Activities Direc t, Each 15 Minutes Completed 07/10/2023 09658 Therapeutic Activities Direc t, Each 15 Minutes Completed 07/10/2023 75337 Manual Tunnel Heading Supervisor 1/> Area 15 Min Each Region Completed 07/10/2023 00217 Therapy Proc, Neuromuscular Reeducation Of Movement Completed 07/10/2023 09948 Therapy Proc 1/> Area 15Min Ea Completed 07/10/2023 81135 Hot/Cold Pack Completed 07/08/2023 98384 Therapy Proc 1/> Area 15Min Ea Completed 07/08/2023 48866 Hot/Cold Pack Completed 07/08/2023 85496 Therapy Proc, Neuromuscular Reeducation Of Movement Completed 07/08/2023 00791 Manual Tunnel Heading Supervisor 1/> Area 15 Min Each Region Completed 07/08/2023 51352 Therapeutic Activities Direc t, Each 15 Minutes Completed 07/05/2023 06696 Therapeutic Activities Direc t, Each 15 Minutes Completed 07/05/2023 54866 Manual Tunnel Heading Supervisor 1/> Area 15 Min Each Region Completed 07/05/2023 05956 Therapy Proc, Neuromuscular Reeducation Of Movement Completed 07/05/2023 12047 Therapy Proc 1/> Area 15Min Ea Completed 07/05/2023 33840 Hot/Cold Pack Completed 07/03/2023 60650 Therapeutic Activities Direc t, Each 15 Minutes Completed 07/03/2023 30137 Manual Tunnel Heading Supervisor 1/> Area 15 Min Each Region Completed 07/03/2023 16543 Therapy Proc, Neuromuscular Reeducation Of Movement Completed 07/03/2023 71168 Therapy Proc 1/> Area 15Min Ea Completed 07/03/2023 66336 Hot/Cold Pack Completed 07/01/2023 17649 Hot/Cold Pack Completed 07/01/2023 28417 Therapy Proc 1/> Area 15Min Ea Completed 07/01/2023 95460 Therapy Proc, Neuromuscular Reeducation Of Movement Completed 07/01/2023 75149 Therapeutic Activities Direc t, Each 15 Minutes Completed 07/01/2023 52907 Manual Tunnel Heading Supervisor 1/> Area 15 Min Each Region Completed 06/28/2023 53755 Therapeutic Activities Direc t, Each 15 Minutes Completed 06/28/2023 52997 Manual Tunnel Heading Supervisor 1/> Area 15 Min Each Region Completed 06/28/2023 73297 Therapy Proc, Neuromuscular Reeducation Of Movement Completed 06/28/2023 65003 Therapy Proc 1/> Area 15Min Ea Completed 06/24/2023 36854 Therapeutic Activities Direc t, Each 15 Minutes Completed 06/24/2023 63595 Manual Tunnel Heading Supervisor 1/> Area 15 Min Each Region Completed 06/24/2023 17552 Therapy Proc, Neuromuscular Reeducation Of Movement Completed 06/24/2023 21157 Therapy Proc 1/> Area 15Min Ea Completed 06/24/2023 97435 Hot/Cold Pack Completed 06/21/2023 11146 Therapy Proc 1/> Area 15Min Ea Completed 06/21/2023 36491 Hot/Cold Pack Completed 06/21/2023 52341 Therapy Proc, Neuromuscular Reeducation Of Movement Completed 06/21/2023 45632 Manual Tunnel Heading Supervisor 1/> Area 15 Min Each Region Completed 06/21/2023 31614 Therapeutic Activities Direc t, Each 15 Minutes Completed 06/19/2023 57023 Therapeutic Activities Direc t, Each 15 Minutes Completed 06/19/2023 90558 Manual Tunnel Heading Supervisor 1/> Area 15 Min Each Region Completed 06/19/2023 58794 Therapy Proc, Neuromuscular Reeducation Of Movement Completed 06/19/2023 05795 Therapy Proc 1/> Area 15Min Ea Completed 06/19/2023 82333 Hot/Cold Pack Completed 06/17/2023 97751 Therapeutic Activities Direc t, Each 15 Minutes Completed 06/17/2023 68629 Manual Tunnel Heading Supervisor 1/> Area 15 Min Each Region Completed 06/17/2023 27986 Therapy Proc, Neuromuscular Reeducation Of Movement Completed 06/17/2023 76582 Therapy Proc 1/> Area 15Min Ea Completed 06/17/2023 71538 Hot/Cold Pack Completed 06/14/2023 61117 Hot/Cold Pack Completed 06/14/2023 31722 Therapy Proc 1/> Area 15Min Ea Completed 06/14/2023 74636 Manual Tunnel Heading Supervisor 1/> Area 15 Min Each Region Completed 06/14/2023 91949 Therapeutic Activities Direc t, Each 15 Minutes Completed 06/14/2023 46577 Therapy Proc, Neuromuscular Reeducation Of Movement Completed 06/12/2023 96407 Therapeutic Activities Direc t, Each 15 Minutes Completed 06/12/2023 03821 Manual Tunnel Heading Supervisor 1/> Area 15 Min Each Region Completed 06/12/2023 36908 Therapy Proc, Neuromuscular Reeducation Of Movement Completed 06/12/2023 64056 Therapy Proc 1/> Area 15Min Ea Completed 06/12/2023 48985 Hot/Cold Pack Completed 06/07/2023 13089 Therapeutic Activities Direc t, Each 15 Minutes Completed 06/07/2023 56983 Manual Tunnel Heading Supervisor 1/> Area 15 Min Each Region Completed 06/07/2023 96013 Therapy Proc, Neuromuscular Reeducation Of Movement Completed 06/07/2023 84395 Therapy Proc 1/> Area 15Min Ea Completed 06/05/2023 62715 Hot/Cold Pack Completed 06/05/2023 31416 Therapy Proc 1/> Area 15Min Ea Completed 06/05/2023 32889 Manual Tunnel Heading Supervisor 1/> Area 15 Min Each Region Completed 06/05/2023 33024 Therapeutic Activities Direc t, Each 15 Minutes Completed 06/05/2023 44071 Therapy Proc, Neuromuscular Reeducation Of Movement Completed 06/03/2023 41664 Therapeutic Activities Direc t, Each 15 Minutes Completed 06/03/2023 83453 Manual Tunnel Heading Supervisor 1/> Area 15 Min Each Region Completed 06/03/2023 09291 Therapy Proc, Neuromuscular Reeducation Of Movement Completed 06/03/2023 24236 Therapy Proc 1/> Area 15Min Ea Completed 06/03/2023 74409 Hot/Cold Pack Completed 05/31/2023 61638 Manual Tunnel Heading Supervisor 1/> Area 15 Min Each Region Completed 05/31/2023 14393 Hot/Cold Pack Completed 05/31/2023 63063 Therapy Proc, Neuromuscular Reeducation Of Movement Completed 05/31/2023 94194 Therapeutic Activities Direc t, Each 15 Minutes Completed 05/29/2023 54738 Therapeutic Activities Direc t, Each 15 Minutes Completed 05/29/2023 03098 Therapeutic Procedure Group Completed 05/29/2023 08776 Manual Tunnel Heading Supervisor 1/> Area 15 Min Each Region Completed 05/29/2023 33507 Therapy Proc, Neuromuscular Reeducation Of Movement Completed 05/29/2023 76010 Hot/Cold Pack Completed 05/27/2023 64593 Therapy Proc, Neuromuscular Reeducation Of Movement Completed 05/27/2023 64615 Hot/Cold Pack Completed 05/27/2023 85460 Therapeutic Activities Direc t, Each 15 Minutes Completed 05/27/2023 26146 Therapeutic Procedure Group Completed 05/27/2023 99560 Manual Tunnel Heading Supervisor 1/> Area 15 Min Each Region Completed 05/24/2023 88654 Therapeutic Activities Direc t, Each 15 Minutes Completed 05/24/2023 65443 Manual Tunnel Heading Supervisor 1/> Area 15 Min Each Region Completed 05/24/2023 16823 Therapy Proc, Neuromuscular Reeducation Of Movement Completed 05/24/2023 66638 Therapy Proc 1/> Area 15Min Ea Completed 05/24/2023 20541 Hot/Cold Pack Completed 05/22/2023 01378 Therapeutic Activities Direc t, Each 15 Minutes Completed 05/22/2023 47384 Manual Tunnel Heading Supervisor 1/> Area 15 Min Each Region Completed 05/22/2023 42953 Therapy Proc, Neuromuscular Reeducation Of Movement Completed 05/22/2023 13464 Therapy Proc 1/> Area 15Min Ea Completed 05/22/2023 87677 Hot/Cold Pack Completed 05/20/2023 23012 Therapy Proc, Neuromuscular Reeducation Of Movement Completed 05/20/2023 65172 Hot/Cold Pack Completed 05/20/2023 77136 Therapy Proc 1/> Area 15Min Ea Completed 05/20/2023 88553 Manual Tunnel Heading Supervisor 1/> Area 15 Min Each Region Completed 05/20/2023 72032 Therapeutic Activities Direc t, Each 15 Minutes Completed 05/17/2023 15145 Therapeutic Activities Direc t, Each 15 Minutes Completed 05/17/2023 01776 Manual Tunnel Heading Supervisor 1/> Area 15 Min Each Region Completed 05/17/2023 83148 Therapy Proc, Neuromuscular Reeducation Of Movement Completed 05/17/2023 34026 Therapy Proc 1/> Area 15Min Ea Completed 05/17/2023 67141 Hot/Cold Pack Completed 05/15/2023 40693 Therapeutic Activities Direc t, Each 15 Minutes Completed 05/15/2023 84637 Manual Tunnel Heading Supervisor 1/> Area 15 Min Each Region Completed 05/15/2023 92307 Therapy Proc, Neuromuscular Reeducation Of Movement Completed 05/15/2023 06055 Therapy Proc 1/> Area 15Min Ea Completed 05/15/2023 76264 Hot/Cold Pack Completed 2023 93805 Therapy Proc 1/> Area 15Min Ea Completed 2023 10277 Hot/Cold Pack Completed 2023 22723 Therapy Proc, Neuromuscular Reeducation Of Movement Completed 2023 23969 Therapeutic Activities Direc t, Each 15 Minutes Completed 2023 08962 Manual Tunnel Heading Supervisor 1/> Area 15 Min Each Region Completed 05/10/2023 82224 Therapeutic Activities Direc t, Each 15 Minutes Completed 05/10/2023 83587 Manual Tunnel Heading Supervisor 1/> Area 15 Min Each Region Completed 05/10/2023 67860 Therapy Proc, Neuromuscular Reeducation Of Movement Completed 05/10/2023 65672 Therapy Proc 1/> Area 15Min Ea Completed 05/10/2023 93436 Hot/Cold Pack Completed 05/08/2023 14164 Therapeutic Activities Direc t, Each 15 Minutes Completed 05/08/2023 21928 Manual Tunnel Heading Supervisor 1/> Area 15 Min Each Region Completed 05/08/2023 23023 Therapy Proc, Neuromuscular Reeducation Of Movement Completed 05/08/2023 70838 Therapy Proc 1/> Area 15Min Ea Completed 05/08/2023 54038 Hot/Cold Pack Completed 05/06/2023 89318 Therapy Proc 1/> Area 15Min Ea Completed 05/06/2023 01089 Hot/Cold Pack Completed 05/06/2023 79707 Therapy Proc, Neuromuscular Reeducation Of Movement Completed 05/06/2023 82117 Manual Tunnel Heading Supervisor 1/> Area 15 Min Each Region Completed 05/06/2023 19342 Therapeutic Activities Direc t, Each 15 Minutes Completed 05/02/2023 72233 Therapeutic Activities Direc t, Each 15 Minutes Completed 05/02/2023 58154 Manual Tunnel Heading Supervisor 1/> Area 15 Min Each Region Completed 05/02/2023 32683 Therapy Proc, Neuromuscular Reeducation Of Movement Completed 05/02/2023 43247 Therapy Proc 1/> Area 15Min Ea Completed 04/30/2023 33183 Manual Tunnel Heading Supervisor 1/> Area 15 Min Each Region Completed 04/30/2023 24825 Therapy Proc, Neuromuscular Reeducation Of Movement Completed 04/30/2023 19119 Therapy Proc 1/> Area 15Min Ea Completed 04/30/2023 01346 Hot/Cold Pack Completed 04/24/2023 70257 Manual Tunnel Heading Supervisor 1/> Area 15 Min Each Region Completed 04/24/2023 61013 Therapy Proc, Neuromuscular Reeducation Of Movement Completed 04/24/2023 99129 Therapy Proc 1/> Area 15Min Ea Completed 04/22/2023 18666 Hot/Cold Pack Completed 04/22/2023 51944 Manual Tunnel Heading Supervisor 1/> Area 15 Min Each Region Completed 04/22/2023 95742 Therapy Proc, Neuromuscular Reeducation Of Movement Completed 04/22/2023 70243 Therapy Proc 1/> Area 15Min Ea Completed 04/19/2023 53536 Therapy Proc, Neuromuscular Reeducation Of Movement Completed 04/19/2023 57585 Therapy Proc 1/> Area 15Min Ea Completed 04/19/2023 41483 Hot/Cold Pack Completed 04/19/2023 46336 Manual Tunnel Heading Supervisor 1/> Area 15 Min Each Region Completed 04/18/2023 97233 Manual Tunnel Heading Supervisor 1/> Area 15 Min Each Region Completed 04/18/2023 58192 Therapy Proc, Neuromuscular Reeducation Of Movement Completed 04/18/2023 50938 Therapy Proc 1/> Area 15Min Ea Completed 04/15/2023 52469 Manual Tunnel Heading Supervisor 1/> Area 15 Min Each Region Completed 04/15/2023 89706 Therapy Proc, Neuromuscular Reeducation Of Movement Completed 04/15/2023 58340 Therapy Proc 1/> Area 15Min Ea Completed 04/15/2023 13613 Hot/Cold Pack Completed 04/12/2023 26379 Therapy Proc, Neuromuscular Reeducation Of Movement Completed 04/12/2023 59921 Hot/Cold Pack Completed 04/12/2023 79796 Therapy Proc 1/> Area 15Min Ea Completed 04/12/2023 18801 Manual Tunnel Heading Supervisor 1/> Area 15 Min Each Region Completed 04/10/2023 99855 Manual Tunnel Heading Supervisor 1/> Area 15 Min Each Region Completed 04/10/2023 57178 Therapy Proc, Neuromuscular Reeducation Of Movement Completed 04/10/2023 84996 Therapy Proc 1/> Area 15Min Ea Completed 04/08/2023 58708 Manual Tunnel Heading Supervisor 1/> Area 15 Min Each Region Completed 04/08/2023 63376 Therapy Proc, Neuromuscular Reeducation Of Movement Completed 04/08/2023 59706 Therapy Proc 1/> Area 15Min Ea Completed 04/05/2023 87782 Manual Tunnel Heading Supervisor 1/> Area 15 Min Each Region Completed 04/05/2023 32752 Therapy Proc, Neuromuscular Reeducation Of Movement Completed 04/05/2023 34916 Therapy Proc 1/> Area 15Min Ea Completed 04/03/2023 18266 Therapy Proc 1/> Area 15Min Ea Completed 04/03/2023 64547 Manual Tunnel Heading Supervisor 1/> Area 15 Min Each Region Completed 04/03/2023 11092 Therapy Proc, Neuromuscular Reeducation Of Movement Completed 04/01/2023 95546 Manual Tunnel Heading Supervisor 1/> Area 15 Min Each Region Completed 04/01/2023 17112 Therapy Proc, Neuromuscular Reeducation Of Movement Completed 04/01/2023 22871 Therapy Proc 1/> Area 15Min Ea Completed 03/29/2023 43372 Manual Tunnel Heading Supervisor 1/> Area 15 Min Each Region Completed 03/29/2023 50009 Therapy Proc, Neuromuscular Reeducation Of Movement Completed 03/29/2023 87896 Therapy Proc 1/> Area 15Min Ea Completed 03/27/2023 57412 Manual Tunnel Heading Supervisor 1/> Area 15 Min Each Region Completed 03/27/2023 83610 Therapy Proc, Neuromuscular Reeducation Of Movement Completed 03/27/2023 97783 Therapy Proc 1/> Area 15Min Ea Completed 03/25/2023 87457 Manual Tunnel Heading Supervisor 1/> Area 15 Min Each Region Completed 03/25/2023 74304 Therapy Proc, Neuromuscular Reeducation Of Movement Completed 03/25/2023 88437 Therapy Proc 1/> Area 15Min Ea Completed 03/22/2023 50257 Therapy Proc, Neuromuscular Reeducation Of Movement Completed 03/22/2023 22133 Therapy Proc 1/> Area 15Min Ea Completed 03/22/2023 19604 Manual Tunnel Heading Supervisor 1/> Area 15 Min Each Region Completed 03/20/2023 79527 Manual Tunnel Heading Supervisor 1/> Area 15 Min Each Region Completed 03/20/2023 39367 Therapy Proc, Neuromuscular Reeducation Of Movement Completed 03/20/2023 91084 Therapy Proc 1/> Area 15Min Ea Completed 03/18/2023 83101 Manual Tunnel Heading Supervisor 1/> Area 15 Min Each Region Completed 03/18/2023 86681 Therapy Proc, Neuromuscular Reeducation Of Movement Completed 03/18/2023 25470 Therapy Proc 1/> Area 15Min Ea Completed 03/15/2023 55106 Manual Tunnel Heading Supervisor 1/> Area 15 Min Each Region Completed 03/15/2023 11457 Therapy Proc, Neuromuscular Reeducation Of Movement Completed 03/15/2023 94753 Therapy Proc 1/> Area 15Min Ea Completed 03/13/2023 96662 Physical Therapy Evaluation Moderate Complexity Completed 03/13/2023 39868 Manual Tunnel Heading Supervisor 1/> Area 15 Min Each Region Completed 03/13/2023 59878 Therapy Proc 1/> Area 15Min Ea Completed 02/18/2023 62399 Venipuncture Routine Complet ed Medical Devices Description No Information Available Encounters Type Date Location Provider Dx Diagnosis Office Visit 02/22/2023 10[place], DO I10 Essential (pr imary) hypertension 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 F41.1 Generalized anxiety disorder M15.0 Primary generalized (osteo)arthritis Assessments Date Code Description Provider 08/09/2023 R26.2 Difficulty in wa lking, not elsewhere classified Aki Garcia, GABRIELLET 08/09/2023 M25.511 Pain in right shoulder Oziel Garcia, DPT 08/05/2023 R26.2 Difficulty in wa lking, not elsewhere classified GABRIELLE EspinozaT 08/05/2023 M25.511 Pain in right shoulder Oziel Garcia, DPT 08/02/2023 R26.2 Difficulty in wa lking, not elsewhere classified GABRIELLE EspinozaT 08/02/2023 M25.511 Pain in right shoulder Oziel Garcia, DPT 07/29/2023 R26.2 Difficulty in wa lking, not elsewhere classified Aki Garcia DPT 07/29/2023 M25.511 Pain in right shoulder Oziel Garcia, DPT 07/26/2023 R26.2 Difficulty in wa lking, not elsewhere classified GABRIELLE EspinozaT 07/26/2023 M25.511 Pain in right shoulder Oziel Garcia, DPT 07/22/2023 R26.2 Difficulty in wa lking, not elsewhere classified GABRIELEL EspinozaT 07/22/2023 M25.511 Pain in right shoulder Oziel Garcia, DPT 07/19/2023 R26.2 Difficulty in wa lking, not elsewhere classified Aki Garcia DPT 07/19/2023 M25.511 Pain in right shoulder Oziel Garcia, DPT 07/15/2023 R26.2 Difficulty in wa lking, not elsewhere classified Aki Garcia DPT 07/15/2023 M25.511 Pain in right shoulder [...] lking, not elsewhere classified Aki Gacria, DPT 05/17/2023 M25.511 Pain in right shoulder [...] 04/24/2023 M25.511 Pain in right shoulder Oziel jeremy Garcia, DPT 04/22/2023 R26.2 Difficulty in wa [...] 02/22/2023 F41.1 Generalized anxiety disorder Dawson Almodovar, DO 02/22/2023 M15.0 Primary generalized (osteo)a rthritis Dawson Almodovar, DO 02/18/2023 I10 Essential (primary) hyperten vickie Dawson Almodovar, DO 02/18/2023 I10 Essential (primary) hyperten vickie [facility] - [place] 02/18/2023 E55.9 Vitamin D deficiency, unspec ified Dawson Almodovar, DO 02/18/2023 E55.9 Vitamin D deficiency, unspec ified Lab - [place] 02/18/2023 E53.8 Deficiency of ot her specified B group vitamins Dawson Almodovar DO 02/18/2023 E53.8 Deficiency of ot her specified B group vitamins [facility] - [place] Plan of Treatment Future Appointment(s):* 09/06/2023 10:30 am - Dawson Almodovar DO at [place] * 08/28/2023 10:30 am - [facility] [place] Functional Status Description No Information Available Mental Status Description No Information Available Referrals Description No Information Available"
--- OUTSIDE RECORDS SUMMARY | 2023-10-11 13:16 | External Medical Summary | Continuity of Care Document ---
Author Name Unknown Organization Family Practice [facility] Address [address] [place] [address] Phone [phone] Problems Active Problems Provider Date Essential hypertension [...] SIG Qnty Indications Order ing Provider Date [id number] Tablets 2 tablets by mouth every day 30tabs R60.0 Dawson Almodovar DO 10/05/2022 Multi + [place]-3 Adult GummiesChewtabs 1 by mouth every day Dawson Almodovar DO 08/08/2022 Vitamin B ComplexTablets 1 by mouth every day Dawson Almodovar DO 08/08/2022 Losartan Potassium/Hydrochlorothi [id number] Tablets 1 by mouth every day 90tabs I10 Dawson Almodovar DO 03/21/2020 Juice Plus Fibre` Dawson Almodovar DO 02/19/2018 Aspirin Adult Low Syvi45ft Tablets DR 1 by mouth every day Unknown Citalopram Mvyfibpwjfqs28dm Tablets 1 by mouth every day 90tabs F41.1 Dawson CintiaAlvin Almodovar, DO Vitamin D3 Maximum [id number] (5000 Ut) Capsules 1 by mouth once daily Unknown Immunizations CPT Code Status Date Vaccine Lot # [id number] Given 07/14/2009 Pneumococcal Vaccine/Pneu movax 23 [id number] Refused 10/19/2022 Shingrix 34364 Refused 08/08/2022 Pneumococcal Conjugate-Pr evnar 20 [id number] Refused 08/08/2022 Influenza Vac, Split, Preservative Free High Dose Age 65 & > 88697 Refused 04/20/2022 Moderna Sars-Co v-2 (Cov-19) vacc,100 mcg/ 0.5 mL 12Y+EMR Doc Only [id number] Refused 10/16/2021 Influenza Virus Vaccine, Quadrivalent (Cciiv4), Derived From Cell 41193 Refused 10/16/2021 Shingrix 32430 Refused 10/16/2021 Pneumococcal Conjugate-Pr evnar 13 13139 Refused 03/20/2021 Pfizer Sars-Cov -2 (Cov-19) vacc 30mcg/0.3ML 12Y+ EMR Doc Only 95242 Refused 04/17/2019 Influenza Vacci ne, Inactivated, Subunit, Adjuvanted, For Intrmusc 19167 Refused 01/29/2019 Tdap (Tetanus, diphtheria & acel. pertussis) Adacel or Boostrix 26293 Refused 01/29/2019 Pneumococcal Conjugate-Pr evnar 13 Vital [...] 92.988 kg Procedures Date Code Description Status 08/12/2023 39933 Manual Manager Of Engineering 1/> Area 15 Min Each Region Completed 08/12/2023 18713 Therapeutic Activities Direc t, Each 15 Minutes Completed 08/12/2023 43139 Hot/Cold Pack Completed 08/12/2023 08042 Therapy Proc, Neuromuscular Reeducation Of Movement Completed 08/12/2023 61100 Therapy Proc 1/> Area 15Min Ea Completed 08/09/2023 87903 Therapeutic Activities Direc t, Each 15 Minutes Completed 08/09/2023 54261 Manual Manager Of Engineering 1/> Area 15 Min Each Region Completed 08/09/2023 65539 Therapy Proc, Neuromuscular Reeducation Of Movement Completed 08/09/2023 58475 Therapy Proc 1/> Area 15Min Ea Completed 08/09/2023 32869 Hot/Cold Pack Completed 08/05/2023 32739 Therapy Proc, Neuromuscular Reeducation Of Movement Completed 08/05/2023 24563 Hot/Cold Pack Completed 08/05/2023 87062 Manual Manager Of Engineering 1/> Area 15 Min Each Region Completed 08/05/2023 25142 Therapeutic Activities Direc t, Each 15 Minutes Completed 08/02/2023 14437 Therapeutic Activities Direc t, Each 15 Minutes Completed 08/02/2023 59493 Manual Manager Of Engineering 1/> Area 15 Min Each Region Completed 08/02/2023 13125 Therapy Proc, Neuromuscular Reeducation Of Movement Completed 08/02/2023 63650 Therapy Proc 1/> Area 15Min Ea Completed 08/02/2023 36298 Hot/Cold Pack Completed 07/29/2023 95099 Therapeutic Activities Direc t, Each 15 Minutes Completed 07/29/2023 97755 Hot/Cold Pack Completed 07/29/2023 50148 Therapy Proc 1/> Area 15Min Ea Completed 07/29/2023 65224 Therapy Proc, Neuromuscular Reeducation Of Movement Completed 07/29/2023 42332 Manual Manager Of Engineering 1/> Area 15 Min Each Region Completed 07/22/2023 86239 Therapeutic Activities Direc t, Each 15 Minutes Completed 07/22/2023 86141 Manual Manager Of Engineering 1/> Area 15 Min Each Region Completed 07/22/2023 35415 Therapy Proc, Neuromuscular Reeducation Of Movement Completed 07/22/2023 13579 Therapy Proc 1/> Area 15Min Ea Completed 07/22/2023 09178 Hot/Cold Pack Completed 07/19/2023 02207 Therapeutic Activities Direc t, Each 15 Minutes Completed 07/19/2023 03895 Manual Manager Of Engineering 1/> Area 15 Min Each Region Completed 07/19/2023 82696 Therapy Proc, Neuromuscular Reeducation Of Movement Completed 07/19/2023 00335 Therapy Proc 1/> Area 15Min Ea Completed 07/19/2023 83702 Hot/Cold Pack Completed 07/15/2023 47644 Therapeutic Activities Direc t, Each 15 Minutes Completed 07/15/2023 30890 Hot/Cold Pack Completed 07/15/2023 87259 Manual Manager Of Engineering 1/> Area 15 Min Each Region Completed 07/15/2023 23010 Therapy Proc, Neuromuscular Reeducation Of Movement Completed 07/12/2023 88788 Therapeutic Activities Direc t, Each 15 Minutes Completed 07/12/2023 01333 Manual Manager Of Engineering 1/> Area 15 Min Each Region Completed 07/12/2023 65140 Therapy Proc, Neuromuscular Reeducation Of Movement Completed 07/12/2023 19272 Therapy Proc 1/> Area 15Min Ea Completed 07/12/2023 96932 Hot/Cold Pack Completed 07/10/2023 25246 Therapeutic Activities Direc t, Each 15 Minutes Completed 07/10/2023 00516 Manual Manager Of Engineering 1/> Area 15 Min Each Region Completed 07/10/2023 19410 Therapy Proc, Neuromuscular Reeducation Of Movement Completed 07/10/2023 65069 Therapy Proc 1/> Area 15Min Ea Completed 07/10/2023 98402 Hot/Cold Pack Completed 07/08/2023 43192 Therapy Proc 1/> Area 15Min Ea Completed 07/08/2023 39691 Hot/Cold Pack Completed 07/08/2023 87898 Therapy Proc, Neuromuscular Reeducation Of Movement Completed 07/08/2023 93723 Manual Manager Of Engineering 1/> Area 15 Min Each Region Completed 07/08/2023 89019 Therapeutic Activities Direc t, Each 15 Minutes Completed 07/05/2023 84975 Therapeutic Activities Direc t, Each 15 Minutes Completed 07/05/2023 46276 Manual Manager Of Engineering 1/> Area 15 Min Each Region Completed 07/05/2023 31834 Therapy Proc, Neuromuscular Reeducation Of Movement Completed 07/05/2023 38528 Therapy Proc 1/> Area 15Min Ea Completed 07/05/2023 71475 Hot/Cold Pack Completed 07/03/2023 93839 Therapeutic Activities Direc t, Each 15 Minutes Completed 07/03/2023 77265 Manual Manager Of Engineering 1/> Area 15 Min Each Region Completed 07/03/2023 48242 Therapy Proc, Neuromuscular Reeducation Of Movement Completed 07/03/2023 50813 Therapy Proc 1/> Area 15Min Ea Completed 07/03/2023 42583 Hot/Cold Pack Completed 07/01/2023 39278 Therapeutic Activities Direc t, Each 15 Minutes Completed 07/01/2023 02587 Hot/Cold Pack Completed 07/01/2023 28867 Therapy Proc 1/> Area 15Min Ea Completed 07/01/2023 68557 Manual Manager Of Engineering 1/> Area 15 Min Each Region Completed 07/01/2023 31943 Therapy Proc, Neuromuscular Reeducation Of Movement Completed 06/28/2023 94043 Manual Manager Of Engineering 1/> Area 15 Min Each Region Completed 06/28/2023 05001 Therapy Proc, Neuromuscular Reeducation Of Movement Completed 06/28/2023 15007 Therapy Proc 1/> Area 15Min Ea Completed 06/28/2023 44516 Therapeutic Activities Direc t, Each 15 Minutes Completed 06/24/2023 99055 Therapeutic Activities Direc t, Each 15 Minutes Completed 06/24/2023 82539 Manual Manager Of Engineering 1/> Area 15 Min Each Region Completed 06/24/2023 92661 Therapy Proc, Neuromuscular Reeducation Of Movement Completed 06/24/2023 25256 Therapy Proc 1/> Area 15Min Ea Completed 06/24/2023 22785 Hot/Cold Pack Completed 06/21/2023 15885 Hot/Cold Pack Completed 06/21/2023 49334 Therapy Proc 1/> Area 15Min Ea Completed 06/21/2023 77853 Therapy Proc, Neuromuscular Reeducation Of Movement Completed 06/21/2023 92687 Manual Manager Of Engineering 1/> Area 15 Min Each Region Completed 06/21/2023 19821 Therapeutic Activities Direc t, Each 15 Minutes Completed 06/19/2023 66465 Therapeutic Activities Direc t, Each 15 Minutes Completed 06/19/2023 68307 Manual Manager Of Engineering 1/> Area 15 Min Each Region Completed 06/19/2023 50931 Therapy Proc, Neuromuscular Reeducation Of Movement Completed 06/19/2023 86550 Therapy Proc 1/> Area 15Min Ea Completed 06/19/2023 34279 Hot/Cold Pack Completed 06/17/2023 41276 Therapeutic Activities Direc t, Each 15 Minutes Completed 06/17/2023 42819 Manual Manager Of Engineering 1/> Area 15 Min Each Region Completed 06/17/2023 49368 Therapy Proc, Neuromuscular Reeducation Of Movement Completed 06/17/2023 91885 Therapy Proc 1/> Area 15Min Ea Completed 06/17/2023 29449 Hot/Cold Pack Completed 06/14/2023 05399 Hot/Cold Pack Completed 06/14/2023 94782 Therapy Proc 1/> Area 15Min Ea Completed 06/14/2023 23776 Therapy Proc, Neuromuscular Reeducation Of Movement Completed 06/14/2023 48802 Therapeutic Activities Direc t, Each 15 Minutes Completed 06/14/2023 67778 Manual Manager Of Engineering 1/> Area 15 Min Each Region Completed 06/12/2023 70768 Therapeutic Activities Direc t, Each 15 Minutes Completed 06/12/2023 30805 Manual Manager Of Engineering 1/> Area 15 Min Each Region Completed 06/12/2023 37165 Therapy Proc, Neuromuscular Reeducation Of Movement Completed 06/12/2023 55407 Therapy Proc 1/> Area 15Min Ea Completed 06/12/2023 57451 Hot/Cold Pack Completed 06/07/2023 70563 Therapeutic Activities Direc t, Each 15 Minutes Completed 06/07/2023 22586 Manual Manager Of Engineering 1/> Area 15 Min Each Region Completed 06/07/2023 94325 Therapy Proc, Neuromuscular Reeducation Of Movement Completed 06/07/2023 34678 Therapy Proc 1/> Area 15Min Ea Completed 06/05/2023 18696 Therapy Proc 1/> Area 15Min Ea Completed 06/05/2023 75015 Hot/Cold Pack Completed 06/05/2023 37358 Therapy Proc, Neuromuscular Reeducation Of Movement Completed 06/05/2023 55177 Manual Manager Of Engineering 1/> Area 15 Min Each Region Completed 06/05/2023 97999 Therapeutic Activities Direc t, Each 15 Minutes Completed 06/03/2023 63415 Therapeutic Activities Direc t, Each 15 Minutes Completed 06/03/2023 13736 Manual Manager Of Engineering 1/> Area 15 Min Each Region Completed 06/03/2023 61795 Therapy Proc, Neuromuscular Reeducation Of Movement Completed 06/03/2023 12607 Therapy Proc 1/> Area 15Min Ea Completed 06/03/2023 68225 Hot/Cold Pack Completed 05/31/2023 65879 Therapeutic Activities Direc t, Each 15 Minutes Completed 05/31/2023 72721 Manual Manager Of Engineering 1/> Area 15 Min Each Region Completed 05/31/2023 88297 Therapy Proc, Neuromuscular Reeducation Of Movement Completed 05/31/2023 81256 Hot/Cold Pack Completed 05/29/2023 14882 Hot/Cold Pack Completed 05/29/2023 25080 Therapy Proc, Neuromuscular Reeducation Of Movement Completed 05/29/2023 13814 Manual Manager Of Engineering 1/> Area 15 Min Each Region Completed 05/29/2023 26895 Therapeutic Activities Direc t, Each 15 Minutes Completed 05/29/2023 07746 Therapeutic Procedure Group Completed 05/27/2023 09952 Therapeutic Activities Direc t, Each 15 Minutes Completed 05/27/2023 10465 Therapeutic Procedure Group Completed 05/27/2023 56413 Manual Manager Of Engineering 1/> Area 15 Min Each Region Completed 05/27/2023 20537 Therapy Proc, Neuromuscular Reeducation Of Movement Completed 05/27/2023 83369 Hot/Cold Pack Completed 05/24/2023 62560 Therapeutic Activities Direc t, Each 15 Minutes Completed 05/24/2023 69727 Manual Manager Of Engineering 1/> Area 15 Min Each Region Completed 05/24/2023 65124 Therapy Proc, Neuromuscular Reeducation Of Movement Completed 05/24/2023 77566 Therapy Proc 1/> Area 15Min Ea Completed 05/24/2023 00840 Hot/Cold Pack Completed 05/22/2023 46372 Therapy Proc, Neuromuscular Reeducation Of Movement Completed 05/22/2023 64414 Hot/Cold Pack Completed 05/22/2023 98455 Therapy Proc 1/> Area 15Min Ea Completed 05/22/2023 38726 Manual Manager Of Engineering 1/> Area 15 Min Each Region Completed 05/22/2023 20924 Therapeutic Activities Direc t, Each 15 Minutes Completed 05/20/2023 17457 Therapeutic Activities Direc t, Each 15 Minutes Completed 05/20/2023 64214 Manual Manager Of Engineering 1/> Area 15 Min Each Region Completed 05/20/2023 59387 Therapy Proc, Neuromuscular Reeducation Of Movement Completed 05/20/2023 17845 Therapy Proc 1/> Area 15Min Ea Completed 05/20/2023 16817 Hot/Cold Pack Completed 05/17/2023 97434 Therapeutic Activities Direc t, Each 15 Minutes Completed 05/17/2023 19355 Manual Manager Of Engineering 1/> Area 15 Min Each Region Completed 05/17/2023 94664 Therapy Proc, Neuromuscular Reeducation Of Movement Completed 05/17/2023 97656 Therapy Proc 1/> Area 15Min Ea Completed 05/17/2023 63823 Hot/Cold Pack Completed 05/15/2023 30083 Hot/Cold Pack Completed 05/15/2023 93728 Therapy Proc 1/> Area 15Min Ea Completed 05/15/2023 02147 Manual Manager Of Engineering 1/> Area 15 Min Each Region Completed 05/15/2023 40065 Therapeutic Activities Direc t, Each 15 Minutes Completed 05/15/2023 48476 Therapy Proc, Neuromuscular Reeducation Of Movement Completed 2023 61603 Therapeutic Activities Direc t, Each 15 Minutes Completed 2023 54495 Manual Manager Of Engineering 1/> Area 15 Min Each Region Completed 2023 09398 Therapy Proc, Neuromuscular Reeducation Of Movement Completed 2023 10935 Therapy Proc 1/> Area 15Min Ea Completed 2023 40490 Hot/Cold Pack Completed 05/10/2023 51734 Therapeutic Activities Direc t, Each 15 Minutes Completed 05/10/2023 97176 Manual Manager Of Engineering 1/> Area 15 Min Each Region Completed 05/10/2023 53893 Therapy Proc, Neuromuscular Reeducation Of Movement Completed 05/10/2023 82914 Therapy Proc 1/> Area 15Min Ea Completed 05/10/2023 83726 Hot/Cold Pack Completed 05/08/2023 71383 Therapy Proc 1/> Area 15Min Ea Completed 05/08/2023 84446 Hot/Cold Pack Completed 05/08/2023 70795 Manual Manager Of Engineering 1/> Area 15 Min Each Region Completed 05/08/2023 35808 Therapeutic Activities Direc t, Each 15 Minutes Completed 05/08/2023 85591 Therapy Proc, Neuromuscular Reeducation Of Movement Completed 05/06/2023 01397 Therapeutic Activities Direc t, Each 15 Minutes Completed 05/06/2023 92335 Manual Manager Of Engineering 1/> Area 15 Min Each Region Completed 05/06/2023 46916 Therapy Proc, Neuromuscular Reeducation Of Movement Completed 05/06/2023 14444 Therapy Proc 1/> Area 15Min Ea Completed 05/06/2023 95459 Hot/Cold Pack Completed 05/02/2023 41724 Manual Manager Of Engineering 1/> Area 15 Min Each Region Completed 05/02/2023 60294 Therapy Proc 1/> Area 15Min Ea Completed 05/02/2023 89214 Therapy Proc, Neuromuscular Reeducation Of Movement Completed 05/02/2023 62669 Therapeutic Activities Direc t, Each 15 Minutes Completed 04/30/2023 79272 Manual Manager Of Engineering 1/> Area 15 Min Each Region Completed 04/30/2023 21923 Therapy Proc, Neuromuscular Reeducation Of Movement Completed 04/30/2023 95409 Therapy Proc 1/> Area 15Min Ea Completed 04/30/2023 72188 Hot/Cold Pack Completed 04/24/2023 89714 Manual Manager Of Engineering 1/> Area 15 Min Each Region Completed 04/24/2023 53600 Therapy Proc 1/> Area 15Min Ea Completed 04/24/2023 30335 Therapy Proc, Neuromuscular Reeducation Of Movement Completed 04/22/2023 58544 Manual Manager Of Engineering 1/> Area 15 Min Each Region Completed 04/22/2023 83832 Therapy Proc, Neuromuscular Reeducation Of Movement Completed 04/22/2023 68752 Therapy Proc 1/> Area 15Min Ea Completed 04/22/2023 87498 Hot/Cold Pack Completed 04/19/2023 97028 Manual Manager Of Engineering 1/> Area 15 Min Each Region Completed 04/19/2023 66874 Therapy Proc, Neuromuscular Reeducation Of Movement Completed 04/19/2023 56360 Therapy Proc 1/> Area 15Min Ea Completed 04/19/2023 19187 Hot/Cold Pack Completed 04/18/2023 82277 Manual Manager Of Engineering 1/> Area 15 Min Each Region Completed 04/18/2023 94701 Therapy Proc, Neuromuscular Reeducation Of Movement Completed 04/18/2023 02188 Therapy Proc 1/> Area 15Min Ea Completed 04/15/2023 83549 Hot/Cold Pack Completed 04/15/2023 65056 Therapy Proc 1/> Area 15Min Ea Completed 04/15/2023 27178 Therapy Proc, Neuromuscular Reeducation Of Movement Completed 04/15/2023 29580 Manual Manager Of Engineering 1/> Area 15 Min Each Region Completed 04/12/2023 57607 Manual Manager Of Engineering 1/> Area 15 Min Each Region Completed 04/12/2023 14504 Therapy Proc, Neuromuscular Reeducation Of Movement Completed 04/12/2023 46458 Therapy Proc 1/> Area 15Min Ea Completed 04/12/2023 32819 Hot/Cold Pack Completed 04/10/2023 15120 Manual Manager Of Engineering 1/> Area 15 Min Each Region Completed 04/10/2023 57102 Therapy Proc, Neuromuscular Reeducation Of Movement Completed 04/10/2023 48143 Therapy Proc 1/> Area 15Min Ea Completed 04/08/2023 23636 Manual Manager Of Engineering 1/> Area 15 Min Each Region Completed 04/08/2023 07640 Therapy Proc, Neuromuscular Reeducation Of Movement Completed 04/08/2023 18126 Therapy Proc 1/> Area 15Min Ea Completed 04/05/2023 92449 Manual Manager Of Engineering 1/> Area 15 Min Each Region Completed 04/05/2023 48710 Therapy Proc, Neuromuscular Reeducation Of Movement Completed 04/05/2023 71450 Therapy Proc 1/> Area 15Min Ea Completed 04/03/2023 72096 Therapy Proc 1/> Area 15Min Ea Completed 04/03/2023 65408 Manual Manager Of Engineering 1/> Area 15 Min Each Region Completed 04/03/2023 32215 Therapy Proc, Neuromuscular Reeducation Of Movement Completed 04/01/2023 73777 Manual Manager Of Engineering 1/> Area 15 Min Each Region Completed 04/01/2023 90938 Therapy Proc, Neuromuscular Reeducation Of Movement Completed 04/01/2023 22061 Therapy Proc 1/> Area 15Min Ea Completed 03/29/2023 30180 Manual Manager Of Engineering 1/> Area 15 Min Each Region Completed 03/29/2023 93076 Therapy Proc, Neuromuscular Reeducation Of Movement Completed 03/29/2023 81716 Therapy Proc 1/> Area 15Min Ea Completed 03/27/2023 06581 Manual Manager Of Engineering 1/> Area 15 Min Each Region Completed 03/27/2023 77657 Therapy Proc, Neuromuscular Reeducation Of Movement Completed 03/27/2023 56777 Therapy Proc 1/> Area 15Min Ea Completed 03/25/2023 01355 Manual Manager Of Engineering 1/> Area 15 Min Each Region Completed 03/25/2023 42799 Therapy Proc, Neuromuscular Reeducation Of Movement Completed 03/25/2023 10716 Therapy Proc 1/> Area 15Min Ea Completed 03/22/2023 07210 Therapy Proc, Neuromuscular Reeducation Of Movement Completed 03/22/2023 07480 Therapy Proc 1/> Area 15Min Ea Completed 03/22/2023 27529 Manual Manager Of Engineering 1/> Area 15 Min Each Region Completed 03/20/2023 09994 Manual Manager Of Engineering 1/> Area 15 Min Each Region Completed 03/20/2023 53263 Therapy Proc, Neuromuscular Reeducation Of Movement Completed 03/20/2023 01813 Therapy Proc 1/> Area 15Min Ea Completed 03/18/2023 23414 Manual Manager Of Engineering 1/> Area 15 Min Each Region Completed 03/18/2023 68872 Therapy Proc, Neuromuscular Reeducation Of Movement Completed 03/18/2023 86032 Therapy Proc 1/> Area 15Min Ea Completed 03/15/2023 41184 Manual Manager Of Engineering 1/> Area 15 Min Each Region Completed 03/15/2023 10237 Therapy Proc, Neuromuscular Reeducation Of Movement Completed 03/15/2023 09715 Therapy Proc 1/> Area 15Min Ea Completed 03/13/2023 69531 Physical Therapy Evaluation Moderate Complexity Completed 03/13/2023 13796 Manual Manager Of Engineering 1/> Area 15 Min Each Region Completed 03/13/2023 82588 Therapy Proc 1/> Area 15Min Ea Completed Medical Devices Description No Information Available Encounters Type Date Location Provider Dx Diagnosis Office Visit 02/22/2023 10:30a Jonatan Almodovar, DO I10 Essential (pr imary) hypertension 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 F41.1 Generalized anxiety disorder M15.0 Primary generalized (osteo)arthritis Assessments Date Code Description Provider 08/12/2023 R26.2 Difficulty in wa [place], not elsewhere classified GABRIELLE EspinozaT 08/12/2023 M25.511 Pain in right shoulder Oziel Garcia, DPT 08/09/2023 R26.2 Difficulty in wa lking, not elsewhere classified Aki Garcia DPT 08/09/2023 M25.511 Pain in right shoulder [...] lking, not elsewhere classified Aki Garcia DPT 06/03/2023 M25.511 Pain in right shoulder [...] lking, not elsewhere classified Aki Garica, DPT 05/20/2023 M25.511 Pain in right shoulder Oziel Garcia, DPT 05/17/2023 R26.2 Difficulty in wa [place]king, not elsewhere classified Aki Garcia, DPT 05/17/2023 M25.511 Pain in right shoulder Oziel Garcia, DPT 05/15/2023 R26.2 Difficulty in wa [place]king, not elsewhere classified Aik Garcia, DPT 05/15/2023 M25.511 Pain in right [...] DPT 03/20/2023 M25.511 Pain in right shoulder Ozeil Garcia, DPT 03/18/2023 R26.2 Difficulty in wa [place]king, not elsewhere classified Aki Garcia, DPT 03/18/2023 M25.511 Pain in right shoulder Oziel Garcia, DPT 03/15/2023 R26.2 Difficulty in wa [place]king, not elsewhere classified Aki Garcia, DPT 03/15/2023 M25.511 Pain in right shoulder Oziel jeremy Garcia, DPT 03/13/2023 R26.2 Difficulty in wa [place]king, not elsewhere classified Aki Garcia, DPT 03/13/2023 M25.511 Pain in right shoulder Oziel jeremy Garcia, DPT 02/22/2023 I10 Essential (primary) hyperten vickie Dawson Almodovar, DO 02/22/2023 K21.9 Gastro-esophagea l reflux 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 Dawson Almodovar, DO 02/22/2023 F41.1 Generalized anxiety disorder Dawson Almodovar, DO 02/22/2023 M15.0 Primary generalized (osteo)a rthritis Dawson Almodovar DO Plan of Treatment Future Appointment(s):* 09/06/2023 10:30 am - Dawson Almodovar DO at [place] * 08/28/2023 10:30 am - [facility] [place] [facility] [place] [facility] Status Description No Information Available Mental Status Description No Information Available Referrals Description No Information Available"
--- OUTSIDE RECORDS SUMMARY | 2023-10-11 13:16 | External Medical Summary | Continuity of Care Document ---
Author Name Unknown Organization [facility] Address [address] [place] [address] Phone [phone] Problems Active Problems Provider Date Essential hypertension [...] SIG Qnty Indications Order ing Provider Date [id number] Tablets 2 tablets by mouth every day 30tabs R60.0 Dawson Almodovar DO 10/05/2022 Multi + Rosine-3 Adult GummiesChewtabs 1 by mouth every day Dawson Almodovar DO 08/08/2022 Vitamin B ComplexTablets 1 by mouth every day Dawson Almodovar DO 08/08/2022 Losartan Potassium/Hydrochlorothi [id number] Tablets 1 by mouth every day 90tabs I10 Dawson Almodovar DO 03/21/2020 Juice Plus Fibre` Dawson Almodovar DO 02/19/2018 Aspirin Adult Low Avph23ny Tablets DR 1 by mouth every day Unknown Citalopram Admiljfjczvx69bn Tablets 1 by mouth every day 90tabs F41.1 Dawson CintiaAlvin Almodovar, DO Vitamin D3 Maximum [id number] (5000 Ut) Capsules 1 by mouth once daily Unknown Immunizations CPT Code Status Date Vaccine Lot # [id number] Given 07/14/2009 Pneumococcal Vaccine/Pneu movax 23 11400 Refused 10/19/2022 Shingrix 25847 Refused 08/08/2022 Pneumococcal Conjugate-Pr evnar 20 12654 Refused 08/08/2022 Influenza Vac, Split, Preservative Free High Dose Age 65 & > 29941 Refused 04/20/2022 Moderna Sars-Co v-2 (Cov-19) vacc,100 mcg/ 0.5 mL 12Y+EMR Doc Only 97923 Refused 10/16/2021 Influenza Virus Vaccine, Quadrivalent (Cciiv4), Derived From Cell 80201 Refused 10/16/2021 Shingrix 54423 Refused 10/16/2021 Pneumococcal Conjugate-Pr evnar 13 24370 Refused 03/20/2021 Pfizer Sars-Cov -2 (Cov-19) vacc 30mcg/0.3ML 12Y+ EMR Doc Only 72064 Refused 04/17/2019 Influenza Vacci ne, Inactivated, Subunit, Adjuvanted, For Intrmusc 39520 Refused 01/29/2019 Tdap (Tetanus, diphtheria & acel. pertussis) Adacel or Boostrix 79962 Refused 01/29/2019 Pneumococcal Conjugate-Pr evnar 13 Vital [...] H/L Range N ote CBC W/Diff 02/18/2023 [facility]. [address] [place] [address] [phone] WBC 7.6 10^3/M3 3.1-9.2 RBC 4.19 10^6/M3 3.70-5.50 HGB 12.2 GR/DL 11.5-16.1 HCT 36.6 % 34.5-47.8 MCV 87.5 CUMICR 82.6-95.8 MCH 29.1 PICOGR 27.9-32.9 MCHC 33.3 % 32.6-35.4 RDW 14.9 % High 11.4-14.6 PLT 225 10^3/M3 140-350 MPV 8.8 CUMICR 7.0-10.6 %Neut 57.1 % 40.0-75.0 %Lymph 29.4 % 17.0-45.0 %Sterling 8.6 % 1.0-11.0 %Eos 3.8 % 0.0-6.0 %Baso 1.1 % 0.0-2.0 #Neut 4.4 10^3/M3 1.5-8.0 #Lymph 2.2 10^3/M3 0.8-3.2 #Sterling 0.7 10^3/M3 0.0-0.8 #Eos 0.3 10^3/m3 0.0-0.4 #Baso 0.1 10^3/m3 0.0-0.2 Comp. Met 02/18/2023 [facility] [address] [place] [address] [phone] Glucose 96 mg/dL 70-110 BUN 18 mg/dL [...] 2.0-3.4 GFR 72 ML/MIN/1.73SQM >60 Lipid 02/18/2023 [facility] [address] [place] [address] [phone] Cholesterol 164 mg/dL 0-200 1 Triglyceride 79 mg/dL 0-150 2 HDLD 62 mg/dL See Comment 3 Measured LDL 99 mg/dL 0-130 4 Calc VLDL 15.8 mg/dL See Comment 5 Chol/HDL 2.6 RATIO See Comment 6 Non-HDL 102 mg/dL See Comment 7 Laboratory test finding 02/18/2023 [facility] [address] [place] [address] [phone] Vitd-25Oh 77 ng/mL 30-100 VB12 411 pg/mL [...] LDL Target Procedures Date Code Description Status 08/05/2023 84218 Manual Oven Tender 1/> Area 15 Min Each Region Completed 08/05/2023 21988 Therapeutic Activities Direc t, Each 15 Minutes Completed 08/05/2023 11887 Hot/Cold Pack Completed 08/05/2023 14601 Therapy Proc, Neuromuscular Reeducation Of Movement Completed 08/02/2023 06643 Therapeutic Activities Direc t, Each 15 Minutes Completed 08/02/2023 48661 Hot/Cold Pack Completed 08/02/2023 27614 Therapy Proc 1/> Area 15Min Ea Completed 08/02/2023 04403 Manual Oven Tender 1/> Area 15 Min Each Region Completed 08/02/2023 32873 Therapy Proc, Neuromuscular Reeducation Of Movement Completed 07/29/2023 73448 Therapeutic Activities Direc t, Each 15 Minutes Completed 07/29/2023 27393 Manual Oven Tender 1/> Area 15 Min Each Region Completed 07/29/2023 85611 Therapy Proc, Neuromuscular Reeducation Of Movement Completed 07/29/2023 52608 Therapy Proc 1/> Area 15Min Ea Completed 07/29/2023 68945 Hot/Cold Pack Completed 07/22/2023 24064 Therapeutic Activities Direc t, Each 15 Minutes Completed 07/22/2023 03989 Manual Oven Tender 1/> Area 15 Min Each Region Completed 07/22/2023 54321 Therapy Proc, Neuromuscular Reeducation Of Movement Completed 07/22/2023 62117 Therapy Proc 1/> Area 15Min Ea Completed 07/22/2023 61197 Hot/Cold Pack Completed 07/19/2023 61819 Therapy Proc, Neuromuscular Reeducation Of Movement Completed 07/19/2023 94336 Hot/Cold Pack Completed 07/19/2023 52306 Therapy Proc 1/> Area 15Min Ea Completed 07/19/2023 97888 Manual Oven Tender 1/> Area 15 Min Each Region Completed 07/19/2023 82794 Therapeutic Activities Direc t, Each 15 Minutes Completed 07/15/2023 90786 Therapeutic Activities Direc t, Each 15 Minutes Completed 07/15/2023 74317 Manual Oven Tender 1/> Area 15 Min Each Region Completed 07/15/2023 25249 Therapy Proc, Neuromuscular Reeducation Of Movement Completed 07/15/2023 08903 Hot/Cold Pack Completed 07/12/2023 96589 Therapeutic Activities Direc t, Each 15 Minutes Completed 07/12/2023 54109 Manual Oven Tender 1/> Area 15 Min Each Region Completed 07/12/2023 40875 Therapy Proc, Neuromuscular Reeducation Of Movement Completed 07/12/2023 02402 Therapy Proc 1/> Area 15Min Ea Completed 07/12/2023 14226 Hot/Cold Pack Completed 07/10/2023 32365 Therapeutic Activities Direc t, Each 15 Minutes Completed 07/10/2023 31927 Hot/Cold Pack Completed 07/10/2023 63905 Therapy Proc 1/> Area 15Min Ea Completed 07/10/2023 08334 Manual Oven Tender 1/> Area 15 Min Each Region Completed 07/10/2023 25387 Therapy Proc, Neuromuscular Reeducation Of Movement Completed 07/08/2023 19315 Therapeutic Activities Direc t, Each 15 Minutes Completed 07/08/2023 68210 Manual Oven Tender 1/> Area 15 Min Each Region Completed 07/08/2023 24170 Therapy Proc, Neuromuscular Reeducation Of Movement Completed 07/08/2023 10396 Therapy Proc 1/> Area 15Min Ea Completed 07/08/2023 14783 Hot/Cold Pack Completed 07/05/2023 28865 Therapeutic Activities Direc t, Each 15 Minutes Completed 07/05/2023 01708 Manual Oven Tender 1/> Area 15 Min Each Region Completed 07/05/2023 45826 Therapy Proc, Neuromuscular Reeducation Of Movement Completed 07/05/2023 29577 Therapy Proc 1/> Area 15Min Ea Completed 07/05/2023 93718 Hot/Cold Pack Completed 07/03/2023 01343 Therapeutic Activities Direc t, Each 15 Minutes Completed 07/03/2023 34871 Hot/Cold Pack Completed 07/03/2023 87396 Therapy Proc 1/> Area 15Min Ea Completed 07/03/2023 54311 Therapy Proc, Neuromuscular Reeducation Of Movement Completed 07/03/2023 91697 Manual Oven Tender 1/> Area 15 Min Each Region Completed 07/01/2023 47503 Therapeutic Activities Direc t, Each 15 Minutes Completed 07/01/2023 14719 Manual Oven Tender 1/> Area 15 Min Each Region Completed 07/01/2023 06909 Therapy Proc, Neuromuscular Reeducation Of Movement Completed 07/01/2023 77028 Therapy Proc 1/> Area 15Min Ea Completed 07/01/2023 56627 Hot/Cold Pack Completed 06/28/2023 46144 Therapy Proc 1/> Area 15Min Ea Completed 06/28/2023 99263 Therapy Proc, Neuromuscular Reeducation Of Movement Completed 06/28/2023 79984 Therapeutic Activities Direc t, Each 15 Minutes Completed 06/28/2023 62541 Manual Oven Tender 1/> Area 15 Min Each Region Completed 06/24/2023 11360 Manual Oven Tender 1/> Area 15 Min Each Region Completed 06/24/2023 86168 Therapy Proc, Neuromuscular Reeducation Of Movement Completed 06/24/2023 23127 Therapy Proc 1/> Area 15Min Ea Completed 06/24/2023 57819 Hot/Cold Pack Completed 06/24/2023 87463 Therapeutic Activities Direc t, Each 15 Minutes Completed 06/21/2023 67044 Therapeutic Activities Direc t, Each 15 Minutes Completed 06/21/2023 46255 Manual Oven Tender 1/> Area 15 Min Each Region Completed 06/21/2023 60910 Therapy Proc, Neuromuscular Reeducation Of Movement Completed 06/21/2023 87139 Therapy Proc 1/> Area 15Min Ea Completed 06/21/2023 58467 Hot/Cold Pack Completed 06/19/2023 88600 Hot/Cold Pack Completed 06/19/2023 07765 Therapy Proc 1/> Area 15Min Ea Completed 06/19/2023 91665 Therapy Proc, Neuromuscular Reeducation Of Movement Completed 06/19/2023 54391 Manual Oven Tender 1/> Area 15 Min Each Region Completed 06/19/2023 90064 Therapeutic Activities Direc t, Each 15 Minutes Completed 06/17/2023 89896 Therapeutic Activities Direc t, Each 15 Minutes Completed 06/17/2023 91536 Manual Oven Tender 1/> Area 15 Min Each Region Completed 06/17/2023 78824 Therapy Proc, Neuromuscular Reeducation Of Movement Completed 06/17/2023 11118 Therapy Proc 1/> Area 15Min Ea Completed 06/17/2023 86302 Hot/Cold Pack Completed 06/14/2023 85528 Therapeutic Activities Direc t, Each 15 Minutes Completed 06/14/2023 27577 Manual Oven Tender 1/> Area 15 Min Each Region Completed 06/14/2023 81716 Therapy Proc, Neuromuscular Reeducation Of Movement Completed 06/14/2023 89094 Therapy Proc 1/> Area 15Min Ea Completed 06/14/2023 01753 Hot/Cold Pack Completed 06/12/2023 56902 Hot/Cold Pack Completed 06/12/2023 89526 Therapy Proc 1/> Area 15Min Ea Completed 06/12/2023 99830 Therapy Proc, Neuromuscular Reeducation Of Movement Completed 06/12/2023 62297 Therapeutic Activities Direc t, Each 15 Minutes Completed 06/12/2023 57512 Manual Oven Tender 1/> Area 15 Min Each Region Completed 06/07/2023 27447 Therapeutic Activities Direc t, Each 15 Minutes Completed 06/07/2023 22547 Manual Oven Tender 1/> Area 15 Min Each Region Completed 06/07/2023 89698 Therapy Proc, Neuromuscular Reeducation Of Movement Completed 06/07/2023 48685 Therapy Proc 1/> Area 15Min Ea Completed 06/05/2023 84933 Therapeutic Activities Direc t, Each 15 Minutes Completed 06/05/2023 72501 Manual Oven Tender 1/> Area 15 Min Each Region Completed 06/05/2023 99909 Therapy Proc, Neuromuscular Reeducation Of Movement Completed 06/05/2023 71627 Therapy Proc 1/> Area 15Min Ea Completed 06/05/2023 97453 Hot/Cold Pack Completed 06/03/2023 94052 Therapy Proc 1/> Area 15Min Ea Completed 06/03/2023 97553 Hot/Cold Pack Completed 06/03/2023 76418 Therapy Proc, Neuromuscular Reeducation Of Movement Completed 06/03/2023 97192 Manual Oven Tender 1/> Area 15 Min Each Region Completed 06/03/2023 74576 Therapeutic Activities Direc t, Each 15 Minutes Completed 05/31/2023 07068 Therapeutic Activities Direc t, Each 15 Minutes Completed 05/31/2023 52097 Manual Oven Tender 1/> Area 15 Min Each Region Completed 05/31/2023 75706 Therapy Proc, Neuromuscular Reeducation Of Movement Completed 05/31/2023 07243 Hot/Cold Pack Completed 05/29/2023 14188 Therapeutic Activities Direc t, Each 15 Minutes Completed 05/29/2023 74718 Therapeutic Procedure Group Completed 05/29/2023 88088 Manual Oven Tender 1/> Area 15 Min Each Region Completed 05/29/2023 39662 Therapy Proc, Neuromuscular Reeducation Of Movement Completed 05/29/2023 57865 Hot/Cold Pack Completed 05/27/2023 89323 Hot/Cold Pack Completed 05/27/2023 86416 Therapy Proc, Neuromuscular Reeducation Of Movement Completed 05/27/2023 87316 Manual Oven Tender 1/> Area 15 Min Each Region Completed 05/27/2023 51249 Therapeutic Activities Direc t, Each 15 Minutes Completed 05/27/2023 16256 Therapeutic Procedure Group Completed 05/24/2023 13938 Therapeutic Activities Direc t, Each 15 Minutes Completed 05/24/2023 09383 Manual Oven Tender 1/> Area 15 Min Each Region Completed 05/24/2023 44837 Therapy Proc, Neuromuscular Reeducation Of Movement Completed 05/24/2023 98043 Therapy Proc 1/> Area 15Min Ea Completed 05/24/2023 58168 Hot/Cold Pack Completed 05/22/2023 87658 Therapeutic Activities Direc t, Each 15 Minutes Completed 05/22/2023 89380 Manual Oven Tender 1/> Area 15 Min Each Region Completed 05/22/2023 01579 Therapy Proc, Neuromuscular Reeducation Of Movement Completed 05/22/2023 37059 Therapy Proc 1/> Area 15Min Ea Completed 05/22/2023 75190 Hot/Cold Pack Completed 05/20/2023 88803 Therapy Proc, Neuromuscular Reeducation Of Movement Completed 05/20/2023 10476 Hot/Cold Pack Completed 05/20/2023 51787 Therapy Proc 1/> Area 15Min Ea Completed 05/20/2023 72421 Manual Oven Tender 1/> Area 15 Min Each Region Completed 05/20/2023 18062 Therapeutic Activities Direc t, Each 15 Minutes Completed 05/17/2023 57486 Therapeutic Activities Direc t, Each 15 Minutes Completed 05/17/2023 87054 Manual Oven Tender 1/> Area 15 Min Each Region Completed 05/17/2023 41831 Therapy Proc, Neuromuscular Reeducation Of Movement Completed 05/17/2023 29087 Therapy Proc 1/> Area 15Min Ea Completed 05/17/2023 94249 Hot/Cold Pack Completed 05/15/2023 76149 Therapeutic Activities Direc t, Each 15 Minutes Completed 05/15/2023 64281 Manual Oven Tender 1/> Area 15 Min Each Region Completed 05/15/2023 55109 Therapy Proc, Neuromuscular Reeducation Of Movement Completed 05/15/2023 26836 Therapy Proc 1/> Area 15Min Ea Completed 05/15/2023 75283 Hot/Cold Pack Completed 2023 73979 Therapy Proc 1/> Area 15Min Ea Completed 2023 62522 Hot/Cold Pack Completed 2023 04614 Therapy Proc, Neuromuscular Reeducation Of Movement Completed 2023 35094 Therapeutic Activities Direc t, Each 15 Minutes Completed 2023 51620 Manual Oven Tender 1/> Area 15 Min Each Region Completed 05/10/2023 70296 Therapeutic Activities Direc t, Each 15 Minutes Completed 05/10/2023 78691 Manual Oven Tender 1/> Area 15 Min Each Region Completed 05/10/2023 31737 Therapy Proc, Neuromuscular Reeducation Of Movement Completed 05/10/2023 11285 Therapy Proc 1/> Area 15Min Ea Completed 05/10/2023 63026 Hot/Cold Pack Completed 05/08/2023 62212 Therapeutic Activities Direc t, Each 15 Minutes Completed 05/08/2023 33155 Manual Oven Tender 1/> Area 15 Min Each Region Completed 05/08/2023 77019 Therapy Proc, Neuromuscular Reeducation Of Movement Completed 05/08/2023 52088 Therapy Proc 1/> Area 15Min Ea Completed 05/08/2023 05041 Hot/Cold Pack Completed 05/06/2023 67589 Therapy Proc 1/> Area 15Min Ea Completed 05/06/2023 01739 Hot/Cold Pack Completed 05/06/2023 14826 Therapy Proc, Neuromuscular Reeducation Of Movement Completed 05/06/2023 19617 Manual Oven Tender 1/> Area 15 Min Each Region Completed 05/06/2023 16784 Therapeutic Activities Direc t, Each 15 Minutes Completed 05/02/2023 04700 Therapeutic Activities Direc t, Each 15 Minutes Completed 05/02/2023 65609 Manual Oven Tender 1/> Area 15 Min Each Region Completed 05/02/2023 33074 Therapy Proc, Neuromuscular Reeducation Of Movement Completed 05/02/2023 81897 Therapy Proc 1/> Area 15Min Ea Completed 04/30/2023 17958 Manual Oven Tender 1/> Area 15 Min Each Region Completed 04/30/2023 50353 Therapy Proc, Neuromuscular Reeducation Of Movement Completed 04/30/2023 19427 Therapy Proc 1/> Area 15Min Ea Completed 04/30/2023 42910 Hot/Cold Pack Completed 04/24/2023 87788 Manual Oven Tender 1/> Area 15 Min Each Region Completed 04/24/2023 14650 Therapy Proc, Neuromuscular Reeducation Of Movement Completed 04/24/2023 78582 Therapy Proc 1/> Area 15Min Ea Completed 04/22/2023 27894 Hot/Cold Pack Completed 04/22/2023 80674 Manual Oven Tender 1/> Area 15 Min Each Region Completed 04/22/2023 71779 Therapy Proc, Neuromuscular Reeducation Of Movement Completed 04/22/2023 92913 Therapy Proc 1/> Area 15Min Ea Completed 04/19/2023 70408 Therapy Proc, Neuromuscular Reeducation Of Movement Completed 04/19/2023 30755 Therapy Proc 1/> Area 15Min Ea Completed 04/19/2023 34762 Hot/Cold Pack Completed 04/19/2023 31586 Manual Oven Tender 1/> Area 15 Min Each Region Completed 04/18/2023 33649 Manual Oven Tender 1/> Area 15 Min Each Region Completed 04/18/2023 16529 Therapy Proc, Neuromuscular Reeducation Of Movement Completed 04/18/2023 42730 Therapy Proc 1/> Area 15Min Ea Completed 04/15/2023 08354 Manual Oven Tender 1/> Area 15 Min Each Region Completed 04/15/2023 29334 Therapy Proc, Neuromuscular Reeducation Of Movement Completed 04/15/2023 84296 Therapy Proc 1/> Area 15Min Ea Completed 04/15/2023 55428 Hot/Cold Pack Completed 04/12/2023 42551 Therapy Proc, Neuromuscular Reeducation Of Movement Completed 04/12/2023 93929 Hot/Cold Pack Completed 04/12/2023 89269 Therapy Proc 1/> Area 15Min Ea Completed 04/12/2023 09543 Manual Oven Tender 1/> Area 15 Min Each Region Completed 04/10/2023 70716 Manual Oven Tender 1/> Area 15 Min Each Region Completed 04/10/2023 18956 Therapy Proc, Neuromuscular Reeducation Of Movement Completed 04/10/2023 88651 Therapy Proc 1/> Area 15Min Ea Completed 04/08/2023 67269 Manual Oven Tender 1/> Area 15 Min Each Region Completed 04/08/2023 55024 Therapy Proc, Neuromuscular Reeducation Of Movement Completed 04/08/2023 87818 Therapy Proc 1/> Area 15Min Ea Completed 04/05/2023 37473 Manual Oven Tender 1/> Area 15 Min Each Region Completed 04/05/2023 53996 Therapy Proc, Neuromuscular Reeducation Of Movement Completed 04/05/2023 07990 Therapy Proc 1/> Area 15Min Ea Completed 04/03/2023 55875 Therapy Proc 1/> Area 15Min Ea Completed 04/03/2023 75904 Manual Oven Tender 1/> Area 15 Min Each Region Completed 04/03/2023 34711 Therapy Proc, Neuromuscular Reeducation Of Movement Completed 04/01/2023 32781 Manual Oven Tender 1/> Area 15 Min Each Region Completed 04/01/2023 36310 Therapy Proc, Neuromuscular Reeducation Of Movement Completed 04/01/2023 70363 Therapy Proc 1/> Area 15Min Ea Completed 03/29/2023 32094 Manual Oven Tender 1/> Area 15 Min Each Region Completed 03/29/2023 67873 Therapy Proc, Neuromuscular Reeducation Of Movement Completed 03/29/2023 32791 Therapy Proc 1/> Area 15Min Ea Completed 03/27/2023 17888 Manual Oven Tender 1/> Area 15 Min Each Region Completed 03/27/2023 13930 Therapy Proc, Neuromuscular Reeducation Of Movement Completed 03/27/2023 75077 Therapy Proc 1/> Area 15Min Ea Completed 03/25/2023 62467 Manual Oven Tender 1/> Area 15 Min Each Region Completed 03/25/2023 28003 Therapy Proc, Neuromuscular Reeducation Of Movement Completed 03/25/2023 18048 Therapy Proc 1/> Area 15Min Ea Completed 03/22/2023 98949 Therapy Proc, Neuromuscular Reeducation Of Movement Completed 03/22/2023 78768 Therapy Proc 1/> Area 15Min Ea Completed 03/22/2023 28344 Manual Oven Tender 1/> Area 15 Min Each Region Completed 03/20/2023 77144 Manual Oven Tender 1/> Area 15 Min Each Region Completed 03/20/2023 82716 Therapy Proc, Neuromuscular Reeducation Of Movement Completed 03/20/2023 71312 Therapy Proc 1/> Area 15Min Ea Completed 03/18/2023 29269 Manual Oven Tender 1/> Area 15 Min Each Region Completed 03/18/2023 31016 Therapy Proc, Neuromuscular Reeducation Of Movement Completed 03/18/2023 32840 Therapy Proc 1/> Area 15Min Ea Completed 03/15/2023 21047 Manual Oven Tender 1/> Area 15 Min Each Region Completed 03/15/2023 28237 Therapy Proc, Neuromuscular Reeducation Of Movement Completed 03/15/2023 13657 Therapy Proc 1/> Area 15Min Ea Completed 03/13/2023 93129 Physical Therapy Evaluation Moderate Complexity Completed 03/13/2023 37834 Manual Oven Tender 1/> Area 15 Min Each Region Completed 03/13/2023 41698 Therapy Proc 1/> Area 15Min Ea Completed 02/18/2023 53272 Venipuncture Routine Complet ed Medical Devices Description No Information Available Encounters Type Date Location Provider Dx Diagnosis Office Visit 02/22/2023 10:30a Jonatan Almodovar, I10 Essential (pr imary) hypertension 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 F41.1 Generalized anxiety disorder M15.0 Primary generalized (osteo)arthritis Assessments Date Code Description Provider 08/05/2023 R26.2 Difficulty in wa lking, not elsewhere classified Aki Garcia, DPT 08/05/2023 M25.511 Pain in right shoulder Oziel jeremy Garcia, DPT 08/02/2023 R26.2 Difficulty in wa lking, not elsewhere classified Aki Garcia, DPT 08/02/2023 M25.511 Pain in right shoulder Oziel jeremy Garcia, DPT 07/29/2023 R26.2 Difficulty in wa lking, not elsewhere classified Aki Garcia, DPT 07/29/2023 M25.511 Pain in right shoulder Oziel jeremy Garcia, DPT 07/26/2023 R26.2 Difficulty in wa lking, not elsewhere classified Aki Garcia, DPT 07/26/2023 M25.511 Pain in right shoulder Oziel jeremy Garcia, DPT 07/22/2023 R26.2 Difficulty in wa lking, not elsewhere classified Aki Garcia, DPT 07/22/2023 M25.511 Pain in right shoulder Oziel jeremy Garcia, DPT 07/19/2023 R26.2 Difficulty in wa lking, not elsewhere classified Aki Garcia, DPT 07/19/2023 M25.511 Pain in right shoulder Oziel jeremy Garcia, DPT 07/15/2023 R26.2 Difficulty in wa lking, not elsewhere classified Aki Garcia, DPT 07/15/2023 M25.511 Pain in right shoulder Oziel jeremy Garcia, DPT 07/12/2023 R26.2 Difficulty in wa [place]king, not elsewhere classified Aki Garcia, DPT 07/12/2023 M25.511 Pain in right shoulder Oziel jeremy Garcia, DPT 07/10/2023 R26.2 Difficulty in wa lking, not elsewhere classified GABRIELLE EspinozaT 07/10/2023 M25.511 Pain in right shoulder Oziel jeremy Gacria, DPT 07/08/2023 R26.2 Difficulty in wa lking, not elsewhere classified Aki Garcia DPT 07/08/2023 M25.511 Pain in right shoulder [...] lking, not elsewhere classified Aki Gracia, DPT 05/10/2023 M25.511 Pain in right shoulder [...] Difficulty in wa lking, not elsewhere classified Mandaeism Smith, DPT 03/20/2023 M25.511 Pain in right shoulder Oziel Garcia, DPT 03/18/2023 R26.2 Difficulty in wa lking, not elsewhere classified Mandaeism Smith, DPT 03/18/2023 M25.511 Pain in right shoulder Oziel Garcia, DPT 03/15/2023 R26.2 Difficulty in wa lking, not elsewhere classified Mandaeism Smith, DPT 03/15/2023 M25.511 Pain in right shoulder Oziel Garcia, DPT 03/13/2023 R26.2 Difficulty in wa lking, not elsewhere classified Mandaeism Smith, DPT 03/13/2023 M25.511 Pain in right shoulder [...] I10 Essential (primary) hyperten vickie [facility] [place] 02/18/2023 E55.9 Vitamin D deficiency, unspec ified Dawson Almodovar, DO 02/18/2023 E55.9 Vitamin D deficiency, unspec ified [facility] [place] 02/18/2023 E53.8 Deficiency of ot her specified B group vitamins Dawson Almodovar, DO 02/18/2023 E53.8 Deficiency of ot her specified B group vitamins [facility] [place] Plan of Treatment Future Appointment(s):* 09/06/2023 10:30 am - Dawson Almodovar DO at [facility] [place] * 08/28/2023 10:30 am - [facility] Functional Status Description No Information Available Mental Status Description No Information Available Referrals Description No Information Available"
--- OUTSIDE RECORDS SUMMARY | 2023-10-11 13:17 | External Medical Summary | Continuity of Care Document ---
Author Name Unknown Organization [facility], [facility] Address [address] [place] [address] Phone [phone] Problems Active Problems Provider Date Essential hypertension [...] SIG Qnty Indications Order ing Provider Date [id number] Tablets 2 tablets by mouth every day 30tabs R60.0 Dawson Almodvoar DO 10/05/2022 Multi + [place]-3 Adult GummiesChewtabs 1 by mouth every day Dawson Almodovar DO 08/08/2022 Vitamin B ComplexTablets 1 by mouth every day Dawson Almodovar DO 08/08/2022 Losartan Potassium/Hydrochlorothi -22rb Tablets 1 by mouth every day 90tabs I10 Dawson Almodovar DO 03/21/2020 Juice Plus Fibre` Dawson Almodovar DO 02/19/2018 Aspirin Adult Low Uere57xc Tablets DR 1 by mouth every day Unknown Citalopram Dtdpfchjoecy32li Tablets 1 by mouth every day 90tabs F41.1 Dawson CintiaAlvin Almodovar, DO Vitamin D3 Maximum [id number] (5000 Ut) Capsules 1 by mouth once daily Unknown Immunizations CPT Code Status Date Vaccine Lot # [id number] Given 07/14/2009 Pneumococcal Vaccine/Pneu movax 23 48570 Refused 10/19/2022 Shingrix 32819 Refused 08/08/2022 Pneumococcal Conjugate-Pr evnar 20 [id number] Refused 08/08/2022 Influenza Vac, Split, Preservative Free High Dose Age 65 & > 17842 Refused 04/20/2022 Moderna Sars-Co v-2 (Cov-19) vacc,100 mcg/ 0.5 mL 12Y+EMR Doc Only [id number] Refused 10/16/2021 Influenza Virus Vaccine, Quadrivalent (Cciiv4), Derived From Cell 18413 Refused 10/16/2021 Shingrix 26089 Refused 10/16/2021 Pneumococcal Conjugate-Pr evnar 13 16274 Refused 03/20/2021 Pfizer Sars-Cov -2 (Cov-19) vacc 30mcg/0.3ML 12Y+ EMR Doc Only 68016 Refused 04/17/2019 Influenza Vacci ne, Inactivated, Subunit, Adjuvanted, For Intrmusc 37447 Refused 01/29/2019 Tdap (Tetanus, diphtheria & acel. pertussis) Adacel or Boostrix 58920 Refused 01/29/2019 Pneumococcal Conjugate-Pr evnar 13 Vital [...] H/L Range N ote CBC W/Diff 02/18/2023 [facility] [address] [place] [address] [phone] WBC 7.6 10^3/M3 3.1-9.2 RBC 4.19 10^6/M3 3.70-5.50 HGB 12.2 GR/DL 11.5-16.1 HCT 36.6 % 34.5-47.8 MCV 87.5 CUMICR 82.6-95.8 MCH 29.1 PICOGR 27.9-32.9 MCHC 33.3 % 32.6-35.4 RDW 14.9 % High 11.4-14.6 PLT 225 10^3/M3 140-350 MPV 8.8 CUMICR 7.0-10.6 %Neut 57.1 % 40.0-75.0 %Lymph 29.4 % 17.0-45.0 %[facility] [place] 8.6 % 1.0-11.0 %Eos 3.8 % 0.0-6.0 %Baso 1.1 % 0.0-2.0 #Neut 4.4 10^3/M3 1.5-8.0 #Lymph 2.2 10^3/M3 0.8-3.2 #[facility] 0.7 10^3/M3 0.0-0.8 #Eos 0.3 10^3/m3 0.0-0.4 #Baso 0.1 10^3/m3 0.0-0.2 Comp. Met 02/18/2023 [facility] [address] [place] [address] [phone] Glucose 96 mg/dL 70-110 BUN 18 mg/dL [...] 2.0-3.4 GFR 72 ML/MIN/1.73SQM >60 Lipid 02/18/2023 [facility] [address] [place] [address] [phone] Cholesterol 164 mg/dL 0-200 1 Triglyceride 79 mg/dL 0-150 2 HDLD 62 mg/dL See Comment 3 Measured LDL 99 mg/dL 0-130 4 Calc VLDL 15.8 mg/dL See Comment 5 Chol/HDL 2.6 RATIO See Comment 6 Non-HDL 102 mg/dL See Comment 7 Laboratory test finding 02/18/2023 [facility] [address] [place] [address] [phone] Vitd-25Oh 77 ng/mL 30-100 VB12 411 pg/mL [...] LDL Target Procedures Date Code Description Status 07/22/2023 82794 Manual Webfocus Developer 1/> Area 15 Min Each Region Completed 07/22/2023 56673 Therapy Proc, Neuromuscular Reeducation Of Movement Completed 07/22/2023 38037 Therapy Proc 1/> Area 15Min Ea Completed 07/22/2023 23898 Hot/Cold Pack Completed 07/22/2023 25460 Therapeutic Activities Direc t, Each 15 Minutes Completed 07/19/2023 09851 Therapeutic Activities Direc t, Each 15 Minutes Completed 07/19/2023 22428 Manual Webfocus Developer 1/> Area 15 Min Each Region Completed 07/19/2023 49013 Therapy Proc, Neuromuscular Reeducation Of Movement Completed 07/19/2023 98773 Therapy Proc 1/> Area 15Min Ea Completed 07/19/2023 78274 Hot/Cold Pack Completed 07/15/2023 42306 Hot/Cold Pack Completed 07/15/2023 61428 Therapy Proc, Neuromuscular Reeducation Of Movement Completed 07/15/2023 14409 Manual Webfocus Developer 1/> Area 15 Min Each Region Completed 07/15/2023 20955 Therapeutic Activities Direc t, Each 15 Minutes Completed 07/12/2023 49230 Therapeutic Activities Direc t, Each 15 Minutes Completed 07/12/2023 24455 Manual Webfocus Developer 1/> Area 15 Min Each Region Completed 07/12/2023 71271 Therapy Proc, Neuromuscular Reeducation Of Movement Completed 07/12/2023 48823 Therapy Proc 1/> Area 15Min Ea Completed 07/12/2023 16555 Hot/Cold Pack Completed 07/10/2023 36931 Therapeutic Activities Direc t, Each 15 Minutes Completed 07/10/2023 20418 Manual Webfocus Developer 1/> Area 15 Min Each Region Completed 07/10/2023 94033 Therapy Proc, Neuromuscular Reeducation Of Movement Completed 07/10/2023 96047 Therapy Proc 1/> Area 15Min Ea Completed 07/10/2023 74376 Hot/Cold Pack Completed 07/08/2023 67841 Hot/Cold Pack Completed 07/08/2023 88552 Therapy Proc 1/> Area 15Min Ea Completed 07/08/2023 02118 Manual Webfocus Developer 1/> Area 15 Min Each Region Completed 07/08/2023 73485 Therapeutic Activities Direc t, Each 15 Minutes Completed 07/08/2023 86619 Therapy Proc, Neuromuscular Reeducation Of Movement Completed 07/05/2023 47248 Therapeutic Activities Direc t, Each 15 Minutes Completed 07/05/2023 08791 Manual Webfocus Developer 1/> Area 15 Min Each Region Completed 07/05/2023 25145 Therapy Proc, Neuromuscular Reeducation Of Movement Completed 07/05/2023 16594 Therapy Proc 1/> Area 15Min Ea Completed 07/05/2023 93988 Hot/Cold Pack Completed 07/03/2023 11504 Therapeutic Activities Direc t, Each 15 Minutes Completed 07/03/2023 14523 Manual Webfocus Developer 1/> Area 15 Min Each Region Completed 07/03/2023 39450 Therapy Proc, Neuromuscular Reeducation Of Movement Completed 07/03/2023 82431 Therapy Proc 1/> Area 15Min Ea Completed 07/03/2023 66306 Hot/Cold Pack Completed 07/01/2023 43949 Therapy Proc, Neuromuscular Reeducation Of Movement Completed 07/01/2023 13704 Hot/Cold Pack Completed 07/01/2023 36332 Therapy Proc 1/> Area 15Min Ea Completed 07/01/2023 57687 Manual Webfocus Developer 1/> Area 15 Min Each Region Completed 07/01/2023 23880 Therapeutic Activities Direc t, Each 15 Minutes Completed 06/28/2023 33486 Therapeutic Activities Direc t, Each 15 Minutes Completed 06/28/2023 53570 Manual Webfocus Developer 1/> Area 15 Min Each Region Completed 06/28/2023 47260 Therapy Proc, Neuromuscular Reeducation Of Movement Completed 06/28/2023 44186 Therapy Proc 1/> Area 15Min Ea Completed 06/24/2023 54954 Therapeutic Activities Direc t, Each 15 Minutes Completed 06/24/2023 67245 Manual Webfocus Developer 1/> Area 15 Min Each Region Completed 06/24/2023 88397 Therapy Proc, Neuromuscular Reeducation Of Movement Completed 06/24/2023 33393 Therapy Proc 1/> Area 15Min Ea Completed 06/24/2023 01091 Hot/Cold Pack Completed 06/21/2023 57427 Manual Webfocus Developer 1/> Area 15 Min Each Region Completed 06/21/2023 23346 Hot/Cold Pack Completed 06/21/2023 28839 Therapy Proc 1/> Area 15Min Ea Completed 06/21/2023 85842 Therapy Proc, Neuromuscular Reeducation Of Movement Completed 06/21/2023 78574 Therapeutic Activities Direc t, Each 15 Minutes Completed 06/19/2023 29035 Manual Webfocus Developer 1/> Area 15 Min Each Region Completed 06/19/2023 52786 Therapy Proc, Neuromuscular Reeducation Of Movement Completed 06/19/2023 66096 Therapy Proc 1/> Area 15Min Ea Completed 06/19/2023 03840 Hot/Cold Pack Completed 06/19/2023 27382 Therapeutic Activities Direc t, Each 15 Minutes Completed 06/17/2023 62545 Therapeutic Activities Direc t, Each 15 Minutes Completed 06/17/2023 36791 Manual Webfocus Developer 1/> Area 15 Min Each Region Completed 06/17/2023 27028 Therapy Proc, Neuromuscular Reeducation Of Movement Completed 06/17/2023 87823 Therapy Proc 1/> Area 15Min Ea Completed 06/17/2023 64144 Hot/Cold Pack Completed 06/14/2023 24792 Therapy Proc 1/> Area 15Min Ea Completed 06/14/2023 21873 Hot/Cold Pack Completed 06/14/2023 28374 Therapy Proc, Neuromuscular Reeducation Of Movement Completed 06/14/2023 40911 Manual Webfocus Developer 1/> Area 15 Min Each Region Completed 06/14/2023 53084 Therapeutic Activities Direc t, Each 15 Minutes Completed 06/12/2023 07944 Therapeutic Activities Direc t, Each 15 Minutes Completed 06/12/2023 84054 Manual Webfocus Developer 1/> Area 15 Min Each Region Completed 06/12/2023 03964 Therapy Proc, Neuromuscular Reeducation Of Movement Completed 06/12/2023 52339 Therapy Proc 1/> Area 15Min Ea Completed 06/12/2023 76765 Hot/Cold Pack Completed 06/07/2023 44306 Therapeutic Activities Direc t, Each 15 Minutes Completed 06/07/2023 11338 Manual Webfocus Developer 1/> Area 15 Min Each Region Completed 06/07/2023 49292 Therapy Proc, Neuromuscular Reeducation Of Movement Completed 06/07/2023 08459 Therapy Proc 1/> Area 15Min Ea Completed 06/05/2023 56317 Therapeutic Activities Direc t, Each 15 Minutes Completed 06/05/2023 75666 Hot/Cold Pack Completed 06/05/2023 31216 Therapy Proc 1/> Area 15Min Ea Completed 06/05/2023 19484 Manual Webfocus Developer 1/> Area 15 Min Each Region Completed 06/05/2023 90668 Therapy Proc, Neuromuscular Reeducation Of Movement Completed 06/03/2023 36482 Therapeutic Activities Direc t, Each 15 Minutes Completed 06/03/2023 13866 Manual Webfocus Developer 1/> Area 15 Min Each Region Completed 06/03/2023 42302 Therapy Proc, Neuromuscular Reeducation Of Movement Completed 06/03/2023 10056 Therapy Proc 1/> Area 15Min Ea Completed 06/03/2023 57563 Hot/Cold Pack Completed 05/31/2023 17401 Therapeutic Activities Direc t, Each 15 Minutes Completed 05/31/2023 70983 Manual Webfocus Developer 1/> Area 15 Min Each Region Completed 05/31/2023 52490 Therapy Proc, Neuromuscular Reeducation Of Movement Completed 05/31/2023 17673 Hot/Cold Pack Completed 05/29/2023 52977 Therapeutic Activities Direc t, Each 15 Minutes Completed 05/29/2023 43716 Hot/Cold Pack Completed 05/29/2023 77949 Therapy Proc, Neuromuscular Reeducation Of Movement Completed 05/29/2023 98762 Manual Webfocus Developer 1/> Area 15 Min Each Region Completed 05/29/2023 20711 Therapeutic Procedure Group Completed 05/27/2023 75819 Therapeutic Activities Direc t, Each 15 Minutes Completed 05/27/2023 95100 Therapeutic Procedure Group Completed 05/27/2023 29816 Manual Webfocus Developer 1/> Area 15 Min Each Region Completed 05/27/2023 40753 Therapy Proc, Neuromuscular Reeducation Of Movement Completed 05/27/2023 41771 Hot/Cold Pack Completed 05/24/2023 30653 Therapy Proc 1/> Area 15Min Ea Completed 05/24/2023 77209 Hot/Cold Pack Completed 05/24/2023 89784 Manual Webfocus Developer 1/> Area 15 Min Each Region Completed 05/24/2023 95835 Therapy Proc, Neuromuscular Reeducation Of Movement Completed 05/24/2023 32625 Therapeutic Activities Direc t, Each 15 Minutes Completed 05/22/2023 82024 Therapeutic Activities Direc t, Each 15 Minutes Completed 05/22/2023 36517 Manual Webfocus Developer 1/> Area 15 Min Each Region Completed 05/22/2023 80769 Therapy Proc, Neuromuscular Reeducation Of Movement Completed 05/22/2023 16347 Therapy Proc 1/> Area 15Min Ea Completed 05/22/2023 74106 Hot/Cold Pack Completed 05/20/2023 48003 Therapeutic Activities Direc t, Each 15 Minutes Completed 05/20/2023 76054 Manual Webfocus Developer 1/> Area 15 Min Each Region Completed 05/20/2023 90637 Therapy Proc, Neuromuscular Reeducation Of Movement Completed 05/20/2023 11366 Therapy Proc 1/> Area 15Min Ea Completed 05/20/2023 75190 Hot/Cold Pack Completed 05/17/2023 59877 Therapy Proc 1/> Area 15Min Ea Completed 05/17/2023 74656 Hot/Cold Pack Completed 05/17/2023 23088 Therapy Proc, Neuromuscular Reeducation Of Movement Completed 05/17/2023 41862 Manual Webfocus Developer 1/> Area 15 Min Each Region Completed 05/17/2023 43095 Therapeutic Activities Direc t, Each 15 Minutes Completed 05/15/2023 01689 Therapeutic Activities Direc t, Each 15 Minutes Completed 05/15/2023 22361 Manual Webfocus Developer 1/> Area 15 Min Each Region Completed 05/15/2023 52908 Therapy Proc, Neuromuscular Reeducation Of Movement Completed 05/15/2023 95535 Therapy Proc 1/> Area 15Min Ea Completed 05/15/2023 40663 Hot/Cold Pack Completed 2023 68194 Therapeutic Activities Direc t, Each 15 Minutes Completed 2023 33255 Manual Webfocus Developer 1/> Area 15 Min Each Region Completed 2023 12843 Therapy Proc, Neuromuscular Reeducation Of Movement Completed 2023 98762 Therapy Proc 1/> Area 15Min Ea Completed 2023 69313 Hot/Cold Pack Completed 05/10/2023 81469 Manual Webfocus Developer 1/> Area 15 Min Each Region Completed 05/10/2023 97954 Hot/Cold Pack Completed 05/10/2023 76557 Therapy Proc 1/> Area 15Min Ea Completed 05/10/2023 74769 Therapeutic Activities Direc t, Each 15 Minutes Completed 05/10/2023 15795 Therapy Proc, Neuromuscular Reeducation Of Movement Completed 05/08/2023 21198 Therapeutic Activities Direc t, Each 15 Minutes Completed 05/08/2023 76896 Manual Webfocus Developer 1/> Area 15 Min Each Region Completed 05/08/2023 16153 Therapy Proc, Neuromuscular Reeducation Of Movement Completed 05/08/2023 77705 Therapy Proc 1/> Area 15Min Ea Completed 05/08/2023 36649 Hot/Cold Pack Completed 05/06/2023 20022 Therapeutic Activities Direc t, Each 15 Minutes Completed 05/06/2023 07922 Manual Webfocus Developer 1/> Area 15 Min Each Region Completed 05/06/2023 90312 Therapy Proc, Neuromuscular Reeducation Of Movement Completed 05/06/2023 37447 Therapy Proc 1/> Area 15Min Ea Completed 05/06/2023 28998 Hot/Cold Pack Completed 05/02/2023 00773 Therapeutic Activities Direc t, Each 15 Minutes Completed 05/02/2023 61816 Therapy Proc 1/> Area 15Min Ea Completed 05/02/2023 82620 Therapy Proc, Neuromuscular Reeducation Of Movement Completed 05/02/2023 68549 Manual Webfocus Developer 1/> Area 15 Min Each Region Completed 04/30/2023 98753 Manual Webfocus Developer 1/> Area 15 Min Each Region Completed 04/30/2023 25091 Therapy Proc, Neuromuscular Reeducation Of Movement Completed 04/30/2023 21530 Therapy Proc 1/> Area 15Min Ea Completed 04/30/2023 12760 Hot/Cold Pack Completed 04/24/2023 41130 Manual Webfocus Developer 1/> Area 15 Min Each Region Completed 04/24/2023 64345 Therapy Proc, Neuromuscular Reeducation Of Movement Completed 04/24/2023 79626 Therapy Proc 1/> Area 15Min Ea Completed 04/22/2023 25767 Hot/Cold Pack Completed 04/22/2023 75860 Therapy Proc 1/> Area 15Min Ea Completed 04/22/2023 82098 Manual Webfocus Developer 1/> Area 15 Min Each Region Completed 04/22/2023 57945 Therapy Proc, Neuromuscular Reeducation Of Movement Completed 04/19/2023 70530 Therapy Proc, Neuromuscular Reeducation Of Movement Completed 04/19/2023 58044 Therapy Proc 1/> Area 15Min Ea Completed 04/19/2023 82245 Hot/Cold Pack Completed 04/19/2023 00797 Manual Webfocus Developer 1/> Area 15 Min Each Region Completed 04/18/2023 51357 Manual Webfocus Developer 1/> Area 15 Min Each Region Completed 04/18/2023 99350 Therapy Proc, Neuromuscular Reeducation Of Movement Completed 04/18/2023 50857 Therapy Proc 1/> Area 15Min Ea Completed 04/15/2023 59568 Manual Webfocus Developer 1/> Area 15 Min Each Region Completed 04/15/2023 21404 Therapy Proc, Neuromuscular Reeducation Of Movement Completed 04/15/2023 92937 Therapy Proc 1/> Area 15Min Ea Completed 04/15/2023 59393 Hot/Cold Pack Completed 04/12/2023 02653 Therapy Proc, Neuromuscular Reeducation Of Movement Completed 04/12/2023 45511 Hot/Cold Pack Completed 04/12/2023 81827 Therapy Proc 1/> Area 15Min Ea Completed 04/12/2023 23225 Manual Webfocus Developer 1/> Area 15 Min Each Region Completed 04/10/2023 60289 Manual Webfocus Developer 1/> Area 15 Min Each Region Completed 04/10/2023 41903 Therapy Proc, Neuromuscular Reeducation Of Movement Completed 04/10/2023 57745 Therapy Proc 1/> Area 15Min Ea Completed 04/08/2023 52559 Manual Webfocus Developer 1/> Area 15 Min Each Region Completed 04/08/2023 70690 Therapy Proc, Neuromuscular Reeducation Of Movement Completed 04/08/2023 18881 Therapy Proc 1/> Area 15Min Ea Completed 04/05/2023 35443 Manual Webfocus Developer 1/> Area 15 Min Each Region Completed 04/05/2023 58901 Therapy Proc, Neuromuscular Reeducation Of Movement Completed 04/05/2023 56136 Therapy Proc 1/> Area 15Min Ea Completed 04/03/2023 36232 Therapy Proc 1/> Area 15Min Ea Completed 04/03/2023 40177 Manual Webfocus Developer 1/> Area 15 Min Each Region Completed 04/03/2023 06372 Therapy Proc, Neuromuscular Reeducation Of Movement Completed 04/01/2023 96865 Manual Webfocus Developer 1/> Area 15 Min Each Region Completed 04/01/2023 06304 Therapy Proc, Neuromuscular Reeducation Of Movement Completed 04/01/2023 62226 Therapy Proc 1/> Area 15Min Ea Completed 03/29/2023 45606 Manual Webfocus Developer 1/> Area 15 Min Each Region Completed 03/29/2023 98456 Therapy Proc, Neuromuscular Reeducation Of Movement Completed 03/29/2023 67813 Therapy Proc 1/> Area 15Min Ea Completed 03/27/2023 88117 Manual Webfocus Developer 1/> Area 15 Min Each Region Completed 03/27/2023 31398 Therapy Proc, Neuromuscular Reeducation Of Movement Completed 03/27/2023 10237 Therapy Proc 1/> Area 15Min Ea Completed 03/25/2023 25615 Manual Webfocus Developer 1/> Area 15 Min Each Region Completed 03/25/2023 30684 Therapy Proc, Neuromuscular Reeducation Of Movement Completed 03/25/2023 74134 Therapy Proc 1/> Area 15Min Ea Completed 03/22/2023 48531 Therapy Proc, Neuromuscular Reeducation Of Movement Completed 03/22/2023 98860 Therapy Proc 1/> Area 15Min Ea Completed 03/22/2023 31834 Manual Webfocus Developer 1/> Area 15 Min Each Region Completed 03/20/2023 21723 Manual Webfocus Developer 1/> Area 15 Min Each Region Completed 03/20/2023 73664 Therapy Proc, Neuromuscular Reeducation Of Movement Completed 03/20/2023 31444 Therapy Proc 1/> Area 15Min Ea Completed 03/18/2023 18780 Manual Webfocus Developer 1/> Area 15 Min Each Region Completed 03/18/2023 65271 Therapy Proc, Neuromuscular Reeducation Of Movement Completed 03/18/2023 71012 Therapy Proc 1/> Area 15Min Ea Completed 03/15/2023 89143 Manual Webfocus Developer 1/> Area 15 Min Each Region Completed 03/15/2023 13066 Therapy Proc, Neuromuscular Reeducation Of Movement Completed 03/15/2023 15058 Therapy Proc 1/> Area 15Min Ea Completed 03/13/2023 13172 Physical Therapy Evaluation Moderate Complexity Completed 03/13/2023 76100 Manual Webfocus Developer 1/> Area 15 Min Each Region Completed 03/13/2023 69073 Therapy Proc 1/> Area 15Min Ea Completed 02/18/2023 22476 Venipuncture Routine Complet ed Medical Devices Description No Information Available Encounters Type Date Location Provider Dx Diagnosis Office Visit 02/22/2023 10:30a Jonatan Almodovar, I10 Essential (pr imary) hypertension 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 F41.1 Generalized anxiety disorder M15.0 Primary generalized (osteo)arthritis Assessments Date Code Description Provider 07/22/2023 R26.2 Difficulty in wa lking, not elsewhere classified Aki Garcia DPT 07/22/2023 M25.511 Pain in right shoulder Oziel Garcia, GABRIELLET 07/19/2023 R26.2 Difficulty in wa lking, not elsewhere classified Aki Garcia DPT 07/19/2023 M25.511 Pain in right shoulder Oziel Garcia, GABRIELLET 07/15/2023 R26.2 Difficulty in wa [place]king, not elsewhere classified Aki Garcia DPT 07/15/2023 M25.511 Pain in right shoulder Oziel Garcia, GABRIELLET 07/12/2023 R26.2 Difficulty in wa lking, not elsewhere classified Aki Garcai DPT 07/12/2023 M25.511 Pain in right shoulder [...] DPT 04/19/2023 M25.511 Pain in right shoulder zOiel Garcia, DPT 04/18/2023 R26.2 Difficulty in wa lking, not elsewhere classified Aik Garcia, DPT 04/18/2023 M25.511 Pain in right [...] DPT 02/22/2023 I10 Essential (primary) hyperten vickie Almodovar, DO 02/22/2023 K21.9 Gastro-esophagea l reflux 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 Dawson Almodovar, DO 02/22/2023 F41.1 Generalized anxiety disorder Dawson Almodovar, DO 02/22/2023 M15.0 Primary generalized (osteo)a rthritis Dawson Almodovar, DO 02/18/2023 I10 Essential (primary) hyperten vickie Almodovar, DO 02/18/2023 I10 Essential (primary) hyperten vickie [facility] [place] 02/18/2023 E55.9 Vitamin D deficiency, unspec ified Dawson Almodovar, DO 02/18/2023 E55.9 Vitamin D deficiency, unspec ified Lab - [place] 02/18/2023 E53.8 Deficiency of ot her specified B group vitamins Dawson Almodovra, DO 02/18/2023 E53.8 Deficiency of ot her specified B group vitamins [facility] - [place] Plan of Treatment Future Appointment(s):* 09/06/2023 10:30 am - Dawson Almodvoar DO at [place] * 08/28/2023 10:30 am - [facility] - Jonatan at [place] Functional Status Description No Information Available Mental Status Description No Information Available Referrals Description No Information Available"
--- OUTSIDE RECORDS SUMMARY | 2023-10-11 13:17 | External Medical Summary | Continuity of Care Document ---
Author Name AKI GARCIA DPT Address [address] [facility], [address] [place] [id number] Phone [phone] Organization [facility], Address [address] [place] [address] Phone [phone] Problems Active Problems Provider Date Essential hypertension [...] SIG Qnty Indications Order ing Provider Date [id number] Tablets 2 tablets by mouth every day 30tabs R60.0 Dawson Almodovar DO 10/05/2022 Multi + [place]-3 Adult GummiesChewtabs 1 by mouth every day Dawson Almodovar DO 08/08/2022 Vitamin B ComplexTablets 1 by mouth every day Dawson Almodovar DO 08/08/2022 Losartan Potassium/Hydrochlorothi [id number] Tablets 1 by mouth every day 90tabs I10 Dawson Almodovar, DO 03/21/2020 Juice Plus Fibre` Dawson Almodovar, DO 02/19/2018 Aspirin Adult Low Rigx63dy Tablets DR 1 by mouth every day Unknown Citalopram Zlkdeetdaxzv65sv Tablets 1 by mouth every day 90tabs F41.1 Dawson Almodovar, DO Vitamin D3 Maximum [id number] (5000 Ut) Capsules 1 by mouth once daily Unknown Immunizations CPT Code Status Date Vaccine Lot # [id number] Given 07/14/2009 Pneumococcal Vaccine/Pneu movax 23 [id number] Refused 10/19/2022 Shingrix 33878 Refused 08/08/2022 Pneumococcal Conjugate-Pr evnar 20 05411 Refused 08/08/2022 Influenza Vac, Split, Preservative Free High Dose Age 65 & > [address] Refused 04/20/2022 Moderna Sars-Co v-2 (Cov-19) vacc,100 mcg/ 0.5 mL 12Y+EMR Doc Only 42574 Refused 10/16/2021 Influenza Virus Vaccine, Quadrivalent (Cciiv4), Derived From Cell 28427 Refused 10/16/2021 Shingrix 04540 Refused 10/16/2021 Pneumococcal Conjugate-Pr evnar 13 31577 Refused 03/20/2021 Pfizer Sars-Cov -2 (Cov-19) vacc 30mcg/0.3ML 12Y+ EMR Doc Only 83617 Refused 04/17/2019 Influenza Vacci ne, Inactivated, Subunit, Adjuvanted, For Intrmusc 92385 Refused 01/29/2019 Tdap (Tetanus, diphtheria & acel. pertussis) Adacel or Boostrix 03269 Refused 01/29/2019 Pneumococcal Conjugate-Pr evnar 13 Vital [...] H/L Range N ote CBC W/Diff 02/18/2023 [facility]. [address] [place] [address] [phone] WBC 7.6 10^3/M3 3.1-9.2 RBC 4.19 10^6/M3 3.70-5.50 HGB 12.2 GR/DL 11.5-16.1 HCT 36.6 % 34.5-47.8 MCV 87.5 CUMICR 82.6-95.8 MCH 29.1 PICOGR 27.9-32.9 MCHC 33.3 % 32.6-35.4 RDW 14.9 % High 11.4-14.6 PLT 225 10^3/M3 140-350 MPV 8.8 CUMICR 7.0-10.6 %Neut 57.1 % 40.0-75.0 %Lymph 29.4 % 17.0-45.0 %Camp 8.6 % 1.0-11.0 %Eos 3.8 % 0.0-6.0 %Baso 1.1 % 0.0-2.0 #Neut 4.4 10^3/M3 1.5-8.0 #Lymph 2.2 10^3/M3 0.8-3.2 #Camp 0.7 10^3/M3 0.0-0.8 #Eos 0.3 10^3/m3 0.0-0.4 #Baso 0.1 10^3/m3 0.0-0.2 Comp. Met 02/18/2023 [facility] [address] [place], [place] [id number] [phone] Glucose 96 mg/dL 70-110 BUN 18 mg/dL [...] 2.0-3.4 GFR 72 ML/MIN/1.73SQM >60 Lipid 02/18/2023 [facility] [address] [place] [address] [phone] Cholesterol 164 mg/dL 0-200 1 Triglyceride 79 mg/dL 0-150 2 HDLD 62 mg/dL See Comment 3 Measured LDL 99 mg/dL 0-130 4 Calc VLDL 15.8 mg/dL See Comment 5 Chol/HDL 2.6 RATIO See Comment 6 Non-HDL 102 mg/dL See Comment 7 Laboratory test finding 02/18/2023 [facility] [address] [place] [address] [phone] Vitd-25Oh 77 ng/mL 30-100 VB12 411 pg/mL [...] LDL Target Procedures Date Code Description Status 07/15/2023 91706 Manual Deputy Sheriff Generalist/Bailiff 1/> Area 15 Min Each Region Completed 07/15/2023 69171 Therapy Proc, Neuromuscular Reeducation Of Movement Completed 07/15/2023 92645 Hot/Cold Pack Completed 07/15/2023 70726 Therapeutic Activities Direc t, Each 15 Minutes Completed 07/12/2023 56350 Therapeutic Activities Direc t, Each 15 Minutes Completed 07/12/2023 07920 Manual Deputy Sheriff Generalist/Bailiff 1/> Area 15 Min Each Region Completed 07/12/2023 75581 Therapy Proc, Neuromuscular Reeducation Of Movement Completed 07/12/2023 97566 Therapy Proc 1/> Area 15Min Ea Completed 07/12/2023 14205 Hot/Cold Pack Completed 07/10/2023 36434 Hot/Cold Pack Completed 07/10/2023 00925 Therapy Proc 1/> Area 15Min Ea Completed 07/10/2023 68351 Therapy Proc, Neuromuscular Reeducation Of Movement Completed 07/10/2023 17050 Manual Deputy Sheriff Generalist/Bailiff 1/> Area 15 Min Each Region Completed 07/10/2023 47490 Therapeutic Activities Direc t, Each 15 Minutes Completed 07/08/2023 98461 Therapeutic Activities Direc t, Each 15 Minutes Completed 07/08/2023 99315 Manual Deputy Sheriff Generalist/Bailiff 1/> Area 15 Min Each Region Completed 07/08/2023 49332 Therapy Proc, Neuromuscular Reeducation Of Movement Completed 07/08/2023 69143 Therapy Proc 1/> Area 15Min Ea Completed 07/08/2023 44900 Hot/Cold Pack Completed 07/05/2023 45841 Therapeutic Activities Direc t, Each 15 Minutes Completed 07/05/2023 74207 Manual Deputy Sheriff Generalist/Bailiff 1/> Area 15 Min Each Region Completed 07/05/2023 09128 Therapy Proc, Neuromuscular Reeducation Of Movement Completed 07/05/2023 41475 Therapy Proc 1/> Area 15Min Ea Completed 07/05/2023 61166 Hot/Cold Pack Completed 07/03/2023 42305 Manual Deputy Sheriff Generalist/Bailiff 1/> Area 15 Min Each Region Completed 07/03/2023 26163 Hot/Cold Pack Completed 07/03/2023 97832 Therapy Proc 1/> Area 15Min Ea Completed 07/03/2023 11838 Therapy Proc, Neuromuscular Reeducation Of Movement Completed 07/03/2023 22791 Therapeutic Activities Direc t, Each 15 Minutes Completed 07/01/2023 37889 Manual Deputy Sheriff Generalist/Bailiff 1/> Area 15 Min Each Region Completed 07/01/2023 67838 Therapy Proc, Neuromuscular Reeducation Of Movement Completed 07/01/2023 77781 Therapy Proc 1/> Area 15Min Ea Completed 07/01/2023 07513 Hot/Cold Pack Completed 07/01/2023 61250 Therapeutic Activities Direc t, Each 15 Minutes Completed 06/28/2023 71851 Therapeutic Activities Direc t, Each 15 Minutes Completed 06/28/2023 40892 Manual Deputy Sheriff Generalist/Bailiff 1/> Area 15 Min Each Region Completed 06/28/2023 97417 Therapy Proc, Neuromuscular Reeducation Of Movement Completed 06/28/2023 83143 Therapy Proc 1/> Area 15Min Ea Completed 06/24/2023 59398 Manual Deputy Sheriff Generalist/Bailiff 1/> Area 15 Min Each Region Completed 06/24/2023 38301 Hot/Cold Pack Completed 06/24/2023 85297 Therapy Proc 1/> Area 15Min Ea Completed 06/24/2023 41928 Therapy Proc, Neuromuscular Reeducation Of Movement Completed 06/24/2023 96258 Therapeutic Activities Direc t, Each 15 Minutes Completed 06/21/2023 00320 Therapeutic Activities Direc t, Each 15 Minutes Completed 06/21/2023 16849 Manual Deputy Sheriff Generalist/Bailiff 1/> Area 15 Min Each Region Completed 06/21/2023 61089 Therapy Proc, Neuromuscular Reeducation Of Movement Completed 06/21/2023 51980 Therapy Proc 1/> Area 15Min Ea Completed 06/21/2023 41804 Hot/Cold Pack Completed 06/19/2023 28780 Hot/Cold Pack Completed 06/19/2023 88728 Therapy Proc 1/> Area 15Min Ea Completed 06/19/2023 21428 Therapy Proc, Neuromuscular Reeducation Of Movement Completed 06/19/2023 40471 Therapeutic Activities Direc t, Each 15 Minutes Completed 06/19/2023 03175 Manual Deputy Sheriff Generalist/Bailiff 1/> Area 15 Min Each Region Completed 06/17/2023 05730 Therapeutic Activities Direc t, Each 15 Minutes Completed 06/17/2023 70087 Manual Deputy Sheriff Generalist/Bailiff 1/> Area 15 Min Each Region Completed 06/17/2023 24257 Therapy Proc, Neuromuscular Reeducation Of Movement Completed 06/17/2023 74722 Therapy Proc 1/> Area 15Min Ea Completed 06/17/2023 83092 Hot/Cold Pack Completed 06/14/2023 62481 Therapeutic Activities Direc t, Each 15 Minutes Completed 06/14/2023 56264 Manual Deputy Sheriff Generalist/Bailiff 1/> Area 15 Min Each Region Completed 06/14/2023 48577 Therapy Proc, Neuromuscular Reeducation Of Movement Completed 06/14/2023 18850 Therapy Proc 1/> Area 15Min Ea Completed 06/14/2023 20241 Hot/Cold Pack Completed 06/12/2023 08907 Therapy Proc 1/> Area 15Min Ea Completed 06/12/2023 52408 Hot/Cold Pack Completed 06/12/2023 70263 Therapy Proc, Neuromuscular Reeducation Of Movement Completed 06/12/2023 90744 Manual Deputy Sheriff Generalist/Bailiff 1/> Area 15 Min Each Region Completed 06/12/2023 05586 Therapeutic Activities Direc t, Each 15 Minutes Completed 06/07/2023 44066 Therapeutic Activities Direc t, Each 15 Minutes Completed 06/07/2023 61007 Manual Deputy Sheriff Generalist/Bailiff 1/> Area 15 Min Each Region Completed 06/07/2023 60967 Therapy Proc, Neuromuscular Reeducation Of Movement Completed 06/07/2023 19101 Therapy Proc 1/> Area 15Min Ea Completed 06/05/2023 35954 Therapeutic Activities Direc t, Each 15 Minutes Completed 06/05/2023 15842 Manual Deputy Sheriff Generalist/Bailiff 1/> Area 15 Min Each Region Completed 06/05/2023 63426 Therapy Proc, Neuromuscular Reeducation Of Movement Completed 06/05/2023 61868 Therapy Proc 1/> Area 15Min Ea Completed 06/05/2023 67870 Hot/Cold Pack Completed 06/03/2023 59920 Therapeutic Activities Direc t, Each 15 Minutes Completed 06/03/2023 25282 Hot/Cold Pack Completed 06/03/2023 17177 Therapy Proc 1/> Area 15Min Ea Completed 06/03/2023 55169 Manual Deputy Sheriff Generalist/Bailiff 1/> Area 15 Min Each Region Completed 06/03/2023 63975 Therapy Proc, Neuromuscular Reeducation Of Movement Completed 05/31/2023 96494 Therapeutic Activities Direc t, Each 15 Minutes Completed 05/31/2023 45438 Manual Deputy Sheriff Generalist/Bailiff 1/> Area 15 Min Each Region Completed 05/31/2023 17788 Therapy Proc, Neuromuscular Reeducation Of Movement Completed 05/31/2023 83612 Hot/Cold Pack Completed 05/29/2023 82165 Therapeutic Activities Direc t, Each 15 Minutes Completed 05/29/2023 93879 Therapeutic Procedure Group Completed 05/29/2023 72419 Manual Deputy Sheriff Generalist/Bailiff 1/> Area 15 Min Each Region Completed 05/29/2023 85131 Therapy Proc, Neuromuscular Reeducation Of Movement Completed 05/29/2023 91551 Hot/Cold Pack Completed 05/27/2023 25086 Therapeutic Activities Direc t, Each 15 Minutes Completed 05/27/2023 21701 Hot/Cold Pack Completed 05/27/2023 36218 Therapy Proc, Neuromuscular Reeducation Of Movement Completed 05/27/2023 94362 Manual Deputy Sheriff Generalist/Bailiff 1/> Area 15 Min Each Region Completed 05/27/2023 94211 Therapeutic Procedure Group Completed 05/24/2023 12022 Therapeutic Activities Direc t, Each 15 Minutes Completed 05/24/2023 38908 Manual Deputy Sheriff Generalist/Bailiff 1/> Area 15 Min Each Region Completed 05/24/2023 55588 Therapy Proc, Neuromuscular Reeducation Of Movement Completed 05/24/2023 34194 Therapy Proc 1/> Area 15Min Ea Completed 05/24/2023 45312 Hot/Cold Pack Completed 05/22/2023 66105 Therapy Proc 1/> Area 15Min Ea Completed 05/22/2023 26415 Hot/Cold Pack Completed 05/22/2023 27634 Manual Deputy Sheriff Generalist/Bailiff 1/> Area 15 Min Each Region Completed 05/22/2023 52261 Therapy Proc, Neuromuscular Reeducation Of Movement Completed 05/22/2023 48245 Therapeutic Activities Direc t, Each 15 Minutes Completed 05/20/2023 86486 Therapeutic Activities Direc t, Each 15 Minutes Completed 05/20/2023 63415 Manual Deputy Sheriff Generalist/Bailiff 1/> Area 15 Min Each Region Completed 05/20/2023 86083 Therapy Proc, Neuromuscular Reeducation Of Movement Completed 05/20/2023 97471 Therapy Proc 1/> Area 15Min Ea Completed 05/20/2023 98204 Hot/Cold Pack Completed 05/17/2023 00717 Therapeutic Activities Direc t, Each 15 Minutes Completed 05/17/2023 20890 Manual Deputy Sheriff Generalist/Bailiff 1/> Area 15 Min Each Region Completed 05/17/2023 13767 Therapy Proc, Neuromuscular Reeducation Of Movement Completed 05/17/2023 57765 Therapy Proc 1/> Area 15Min Ea Completed 05/17/2023 27415 Hot/Cold Pack Completed 05/15/2023 00403 Therapy Proc 1/> Area 15Min Ea Completed 05/15/2023 05186 Hot/Cold Pack Completed 05/15/2023 14164 Therapy Proc, Neuromuscular Reeducation Of Movement Completed 05/15/2023 11606 Manual Deputy Sheriff Generalist/Bailiff 1/> Area 15 Min Each Region Completed 05/15/2023 28423 Therapeutic Activities Direc t, Each 15 Minutes Completed 2023 31528 Therapeutic Activities Direc t, Each 15 Minutes Completed 2023 75204 Manual Deputy Sheriff Generalist/Bailiff 1/> Area 15 Min Each Region Completed 2023 43784 Therapy Proc, Neuromuscular Reeducation Of Movement Completed 2023 75348 Therapy Proc 1/> Area 15Min Ea Completed 2023 70581 Hot/Cold Pack Completed 05/10/2023 55301 Therapeutic Activities Direc t, Each 15 Minutes Completed 05/10/2023 16405 Manual Deputy Sheriff Generalist/Bailiff 1/> Area 15 Min Each Region Completed 05/10/2023 34359 Therapy Proc, Neuromuscular Reeducation Of Movement Completed 05/10/2023 70966 Therapy Proc 1/> Area 15Min Ea Completed 05/10/2023 93073 Hot/Cold Pack Completed 05/08/2023 64944 Therapeutic Activities Direc t, Each 15 Minutes Completed 05/08/2023 32224 Hot/Cold Pack Completed 05/08/2023 16076 Therapy Proc 1/> Area 15Min Ea Completed 05/08/2023 99207 Manual Deputy Sheriff Generalist/Bailiff 1/> Area 15 Min Each Region Completed 05/08/2023 33974 Therapy Proc, Neuromuscular Reeducation Of Movement Completed 05/06/2023 30399 Therapeutic Activities Direc t, Each 15 Minutes Completed 05/06/2023 87438 Manual Deputy Sheriff Generalist/Bailiff 1/> Area 15 Min Each Region Completed 05/06/2023 59349 Therapy Proc, Neuromuscular Reeducation Of Movement Completed 05/06/2023 55931 Therapy Proc 1/> Area 15Min Ea Completed 05/06/2023 50860 Hot/Cold Pack Completed 05/02/2023 42692 Therapeutic Activities Direc t, Each 15 Minutes Completed 05/02/2023 10214 Manual Deputy Sheriff Generalist/Bailiff 1/> Area 15 Min Each Region Completed 05/02/2023 16925 Therapy Proc, Neuromuscular Reeducation Of Movement Completed 05/02/2023 50106 Therapy Proc 1/> Area 15Min Ea Completed 04/30/2023 30888 Therapy Proc, Neuromuscular Reeducation Of Movement Completed 04/30/2023 44308 Hot/Cold Pack Completed 04/30/2023 23982 Therapy Proc 1/> Area 15Min Ea Completed 04/30/2023 93514 Manual Deputy Sheriff Generalist/Bailiff 1/> Area 15 Min Each Region Completed 04/24/2023 95407 Manual Deputy Sheriff Generalist/Bailiff 1/> Area 15 Min Each Region Completed 04/24/2023 87572 Therapy Proc, Neuromuscular Reeducation Of Movement Completed 04/24/2023 80657 Therapy Proc 1/> Area 15Min Ea Completed 04/22/2023 71382 Manual Deputy Sheriff Generalist/Bailiff 1/> Area 15 Min Each Region Completed 04/22/2023 11867 Therapy Proc, Neuromuscular Reeducation Of Movement Completed 04/22/2023 42530 Therapy Proc 1/> Area 15Min Ea Completed 04/22/2023 13310 Hot/Cold Pack Completed 04/19/2023 20951 Hot/Cold Pack Completed 04/19/2023 61939 Therapy Proc, Neuromuscular Reeducation Of Movement Completed 04/19/2023 28332 Manual Deputy Sheriff Generalist/Bailiff 1/> Area 15 Min Each Region Completed 04/19/2023 48894 Therapy Proc 1/> Area 15Min Ea Completed 04/18/2023 36637 Therapy Proc, Neuromuscular Reeducation Of Movement Completed 04/18/2023 98921 Therapy Proc 1/> Area 15Min Ea Completed 04/18/2023 58437 Manual Deputy Sheriff Generalist/Bailiff 1/> Area 15 Min Each Region Completed 04/15/2023 98404 Manual Deputy Sheriff Generalist/Bailiff 1/> Area 15 Min Each Region Completed 04/15/2023 57009 Therapy Proc, Neuromuscular Reeducation Of Movement Completed 04/15/2023 50421 Therapy Proc 1/> Area 15Min Ea Completed 04/15/2023 42883 Hot/Cold Pack Completed 04/12/2023 47727 Manual Deputy Sheriff Generalist/Bailiff 1/> Area 15 Min Each Region Completed 04/12/2023 42612 Therapy Proc, Neuromuscular Reeducation Of Movement Completed 04/12/2023 10405 Therapy Proc 1/> Area 15Min Ea Completed 04/12/2023 62464 Hot/Cold Pack Completed 04/10/2023 63362 Therapy Proc, Neuromuscular Reeducation Of Movement Completed 04/10/2023 04930 Therapy Proc 1/> Area 15Min Ea Completed 04/10/2023 61186 Manual Deputy Sheriff Generalist/Bailiff 1/> Area 15 Min Each Region Completed 04/08/2023 62908 Manual Deputy Sheriff Generalist/Bailiff 1/> Area 15 Min Each Region Completed 04/08/2023 37656 Therapy Proc, Neuromuscular Reeducation Of Movement Completed 04/08/2023 85326 Therapy Proc 1/> Area 15Min Ea Completed 04/05/2023 49881 Manual Deputy Sheriff Generalist/Bailiff 1/> Area 15 Min Each Region Completed 04/05/2023 20391 Therapy Proc, Neuromuscular Reeducation Of Movement Completed 04/05/2023 13546 Therapy Proc 1/> Area 15Min Ea Completed 04/03/2023 93585 Manual Deputy Sheriff Generalist/Bailiff 1/> Area 15 Min Each Region Completed 04/03/2023 96832 Therapy Proc, Neuromuscular Reeducation Of Movement Completed 04/03/2023 04468 Therapy Proc 1/> Area 15Min Ea Completed 04/01/2023 21501 Therapy Proc 1/> Area 15Min Ea Completed 04/01/2023 13980 Therapy Proc, Neuromuscular Reeducation Of Movement Completed 04/01/2023 08052 Manual Deputy Sheriff Generalist/Bailiff 1/> Area 15 Min Each Region Completed 03/29/2023 67666 Manual Deputy Sheriff Generalist/Bailiff 1/> Area 15 Min Each Region Completed 03/29/2023 46803 Therapy Proc, Neuromuscular Reeducation Of Movement Completed 03/29/2023 11395 Therapy Proc 1/> Area 15Min Ea Completed 03/27/2023 36972 Manual Deputy Sheriff Generalist/Bailiff 1/> Area 15 Min Each Region Completed 03/27/2023 38757 Therapy Proc, Neuromuscular Reeducation Of Movement Completed 03/27/2023 14505 Therapy Proc 1/> Area 15Min Ea Completed 03/25/2023 36200 Manual Deputy Sheriff Generalist/Bailiff 1/> Area 15 Min Each Region Completed 03/25/2023 70404 Therapy Proc, Neuromuscular Reeducation Of Movement Completed 03/25/2023 06981 Therapy Proc 1/> Area 15Min Ea Completed 03/22/2023 11037 Manual Deputy Sheriff Generalist/Bailiff 1/> Area 15 Min Each Region Completed 03/22/2023 25865 Therapy Proc, Neuromuscular Reeducation Of Movement Completed 03/22/2023 48225 Therapy Proc 1/> Area 15Min Ea Completed 03/20/2023 57349 Manual Deputy Sheriff Generalist/Bailiff 1/> Area 15 Min Each Region Completed 03/20/2023 06584 Therapy Proc 1/> Area 15Min Ea Completed 03/20/2023 59735 Therapy Proc, Neuromuscular Reeducation Of Movement Completed 03/18/2023 67385 Manual Deputy Sheriff Generalist/Bailiff 1/> Area 15 Min Each Region Completed 03/18/2023 48053 Therapy Proc, Neuromuscular Reeducation Of Movement Completed 03/18/2023 02880 Therapy Proc 1/> Area 15Min Ea Completed 03/15/2023 65772 Manual Deputy Sheriff Generalist/Bailiff 1/> Area 15 Min Each Region Completed 03/15/2023 01783 Therapy Proc, Neuromuscular Reeducation Of Movement Completed 03/15/2023 36894 Therapy Proc 1/> Area 15Min Ea Completed 03/13/2023 34387 Physical Therapy Evaluation Moderate Complexity Completed 03/13/2023 98081 Manual Deputy Sheriff Generalist/Bailiff 1/> Area 15 Min Each Region Completed 03/13/2023 36457 Therapy Proc 1/> Area 15Min Ea Completed 02/18/2023 82410 Venipuncture Routine Complet ed Medical Devices Description No Information Available Encounters Type Date Location Provider Dx Diagnosis Office Visit 02/22/2023 10:30a [place] Dawson Almodovar, DO I10 Essential (pr imary) hypertension 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 F41.1 Generalized anxiety disorder M15.0 Primary generalized (osteo)arthritis Assessments Date Code Description Provider 07/15/2023 R26.2 Difficulty in wa lking, not elsewhere classified GABRIELLE EspinozaT 07/15/2023 M25.511 Pain in right shoulder Oziel Garcia, DPT 07/12/2023 R26.2 Difficulty in wa [place]king, not elsewhere classified GABRIELLE EspinozaT 07/12/2023 M25.511 Pain in right shoulder Oziel Garcia, DPT 07/10/2023 R26.2 Difficulty in wa [place]king, not elsewhere classified GABRIELLE EspinozaT 07/10/2023 M25.511 Pain in right shoulder Oziel Garcia, DPT 07/08/2023 R26.2 Difficulty in wa [place]king, not elsewhere classified Aki Garcia DPT 07/08/2023 M25.511 Pain in right shoulder Oziel jeremy Garcia, DPT 07/05/2023 R26.2 Difficulty in wa [place]king, not elsewhere classified Aki Garcia DPT 07/05/2023 M25.511 Pain in right shoulder Oziel Garcia, DPT 07/03/2023 R26.2 Difficulty in wa [place]king, not elsewhere classified Aki Garcia DPT 07/03/2023 M25.511 Pain in right shoulder Oziel Garcia, DPT 07/01/2023 R26.2 Difficulty in wa [place]king, not elsewhere classified Aki Garcia DPT 07/01/2023 M25.511 Pain in right shoulder [...] DPT 04/22/2023 M25.511 Pain in right shoulder Ozeil Garcia, DPT 04/19/2023 R26.2 Difficulty in wa [...] Difficulty in wa lking, not elsewhere classified [employer] Jose, DPT 03/13/2023 M25.511 Pain in right shoulder Oziel luna Jose, DPT 02/22/2023 I10 Essential (primary) hyperten vickie Dawson Almodovar, DO 02/22/2023 K21.9 Gastro-esophagea l reflux 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 Dawson Almodovar, DO 02/22/2023 F41.1 Generalized anxiety disorder Dawson Almodovar, DO 02/22/2023 M15.0 Primary generalized (osteo)a rthritis Dawson Almodovar, DO 02/18/2023 I10 Essential (primary) hyperten vickie Dawson Almodovar, DO 02/18/2023 I10 Essential (primary) hypertdania [facility] - [place] 02/18/2023 E55.9 Vitamin D deficiency, unspec ified Dawson Almodovar, DO 02/18/2023 E55.9 Vitamin D deficiency, unspec ified Lab - [place] 02/18/2023 E53.8 Deficiency of ot her specified B group vitamins Dawson Almodovar, 02/18/2023 E53.8 Deficiency of ot her specified B group vitamins Lab - [place] Plan of Treatment Future Appointment(s):* 09/06/2023 10:30 am - Dawson Almodovar DO at [place] * 08/28/2023 10:30 am - [facility] [place] [facility] Functional Status Description No Information Available Mental Status Description No Information Available Referrals Description No Information Available"
--- OUTSIDE RECORDS SUMMARY | 2023-10-11 13:17 | External Medical Summary | Continuity of Care Document ---
Author Name Unknown Organization Family Practice [facility], [facility] Address [address] [place] [address] Phone [phone] Problems Active Problems Provider Date Essential hypertension [...] SIG Qnty Indications Order ing Provider Date [id number] Tablets 2 tablets by mouth every day 30tabs R60.0 Dawson Almodovar DO 10/05/2022 Multi + [place]-3 Adult GummiesChewtabs 1 by mouth every day Dawson Almodovar DO 08/08/2022 Vitamin B ComplexTablets 1 by mouth every day Dawson Almodovar DO 08/08/2022 Losartan Potassium/Hydrochlorothi [id number] Tablets 1 by mouth every day 90tabs I10 Dawson Almodovar DO 03/21/2020 Juice Plus Fibre` Dawson Almodovar DO 02/19/2018 Aspirin Adult Low Mopo77ch Tablets DR 1 by mouth every day Unknown Citalopram Bkrsjtzygmsx94tl Tablets 1 by mouth every day 90tabs F41.1 Dawson CintiaAlvin Almodovar, DO Vitamin D3 Maximum [id number] (5000 Ut) Capsules 1 by mouth once daily Unknown Immunizations CPT Code Status Date Vaccine Lot # [id number] Given 07/14/2009 Pneumococcal Vaccine/Pneu movax 23 [id number] Refused 10/19/2022 Shingrix 36474 Refused 08/08/2022 Pneumococcal Conjugate-Pr evnar 20 23319 Refused 08/08/2022 Influenza Vac, Split, Preservative Free High Dose Age 65 & > 71690 Refused 04/20/2022 Moderna Sars-Co v-2 (Cov-19) vacc,100 mcg/ 0.5 mL 12Y+EMR Doc Only 65191 Refused 10/16/2021 Influenza Virus Vaccine, Quadrivalent (Cciiv4), Derived From Cell 89349 Refused 10/16/2021 Shingrix 11760 Refused 10/16/2021 Pneumococcal Conjugate-Pr evnar 13 36069 Refused 03/20/2021 Pfizer Sars-Cov -2 (Cov-19) vacc 30mcg/0.3ML 12Y+ EMR Doc Only 53554 Refused 04/17/2019 Influenza Vacci ne, Inactivated, Subunit, Adjuvanted, For Intrmusc 30816 Refused 01/29/2019 Tdap (Tetanus, diphtheria & acel. pertussis) Adacel or Boostrix 30440 Refused 01/29/2019 Pneumococcal Conjugate-Pr evnar 13 Vital [...] [facility]. [address] [place] [address] [phone] WBC 7.6 10^3/M3 3.1-9.2 RBC 4.19 10^6/M3 3.70-5.50 HGB 12.2 GR/DL 11.5-16.1 HCT 36.6 % 34.5-47.8 MCV 87.5 CUMICR 82.6-95.8 MCH 29.1 PICOGR 27.9-32.9 MCHC 33.3 % 32.6-35.4 RDW 14.9 % High 11.4-14.6 PLT 225 10^3/M3 140-350 MPV 8.8 CUMICR 7.0-10.6 %Neut 57.1 % 40.0-75.0 %Lymph 29.4 % 17.0-45.0 %Miller 8.6 % 1.0-11.0 %Eos 3.8 % 0.0-6.0 %Baso 1.1 % 0.0-2.0 #Neut 4.4 10^3/M3 1.5-8.0 #Lymph 2.2 10^3/M3 0.8-3.2 #Miller 0.7 10^3/M3 0.0-0.8 #Eos 0.3 10^3/m3 0.0-0.4 #Baso 0.1 10^3/m3 0.0-0.2 Comp. Met 02/18/2023 [facility]. [address] [place] [address] [phone] Glucose 96 mg/dL 70-110 BUN 18 mg/dL [...] [facility] [address] [place] [address] [phone] Cholesterol 164 mg/dL 0-200 1 Triglyceride 79 mg/dL 0-150 2 HDLD 62 mg/dL See Comment 3 Measured LDL 99 mg/dL 0-130 4 Calc VLDL 15.8 mg/dL See Comment 5 Chol/HDL 2.6 RATIO See Comment 6 Non-HDL 102 mg/dL See Comment 7 Laboratory test finding 02/18/2023 [facility]. [address] [place] [address] [phone] Vitd-25Oh 77 ng/mL 30-100 VB12 411 pg/mL [...] Target Procedures Date Code Description Status 07/22/2023 80254 Manual Potash Flaker 1/> Area 15 Min Each Region Completed 07/22/2023 89304 Therapy Proc, Neuromuscular Reeducation Of Movement Completed 07/22/2023 70373 Therapy Proc 1/> Area 15Min Ea Completed 07/22/2023 67340 Hot/Cold Pack Completed 07/22/2023 39180 Therapeutic Activities Direc t, Each 15 Minutes Completed 07/19/2023 46527 Therapeutic Activities Direc t, Each 15 Minutes Completed 07/19/2023 14104 Manual Potash Flaker 1/> Area 15 Min Each Region Completed 07/19/2023 27618 Therapy Proc, Neuromuscular Reeducation Of Movement Completed 07/19/2023 37934 Therapy Proc 1/> Area 15Min Ea Completed 07/19/2023 08893 Hot/Cold Pack Completed 07/15/2023 96051 Hot/Cold Pack Completed 07/15/2023 11704 Therapy Proc, Neuromuscular Reeducation Of Movement Completed 07/15/2023 22520 Manual Potash Flaker 1/> Area 15 Min Each Region Completed 07/15/2023 14675 Therapeutic Activities Direc t, Each 15 Minutes Completed 07/12/2023 70596 Therapeutic Activities Direc t, Each 15 Minutes Completed 07/12/2023 30013 Manual Potash Flaker 1/> Area 15 Min Each Region Completed 07/12/2023 41477 Therapy Proc, Neuromuscular Reeducation Of Movement Completed 07/12/2023 05789 Therapy Proc 1/> Area 15Min Ea Completed 07/12/2023 95731 Hot/Cold Pack Completed 07/10/2023 82748 Therapeutic Activities Direc t, Each 15 Minutes Completed 07/10/2023 09242 Manual Potash Flaker 1/> Area 15 Min Each Region Completed 07/10/2023 67030 Therapy Proc, Neuromuscular Reeducation Of Movement Completed 07/10/2023 26756 Therapy Proc 1/> Area 15Min Ea Completed 07/10/2023 80722 Hot/Cold Pack Completed 07/08/2023 45053 Hot/Cold Pack Completed 07/08/2023 37256 Therapy Proc 1/> Area 15Min Ea Completed 07/08/2023 65999 Manual Potash Flaker 1/> Area 15 Min Each Region Completed 07/08/2023 02910 Therapeutic Activities Direc t, Each 15 Minutes Completed 07/08/2023 09945 Therapy Proc, Neuromuscular Reeducation Of Movement Completed 07/05/2023 02558 Therapeutic Activities Direc t, Each 15 Minutes Completed 07/05/2023 18662 Manual Potash Flaker 1/> Area 15 Min Each Region Completed 07/05/2023 13305 Therapy Proc, Neuromuscular Reeducation Of Movement Completed 07/05/2023 09090 Therapy Proc 1/> Area 15Min Ea Completed 07/05/2023 90849 Hot/Cold Pack Completed 07/03/2023 90242 Therapeutic Activities Direc t, Each 15 Minutes Completed 07/03/2023 45220 Manual Potash Flaker 1/> Area 15 Min Each Region Completed 07/03/2023 03582 Therapy Proc, Neuromuscular Reeducation Of Movement Completed 07/03/2023 33595 Therapy Proc 1/> Area 15Min Ea Completed 07/03/2023 09310 Hot/Cold Pack Completed 07/01/2023 31122 Therapy Proc, Neuromuscular Reeducation Of Movement Completed 07/01/2023 24792 Hot/Cold Pack Completed 07/01/2023 38269 Therapy Proc 1/> Area 15Min Ea Completed 07/01/2023 95910 Manual Potash Flaker 1/> Area 15 Min Each Region Completed 07/01/2023 62718 Therapeutic Activities Direc t, Each 15 Minutes Completed 06/28/2023 34227 Therapeutic Activities Direc t, Each 15 Minutes Completed 06/28/2023 80567 Manual Potash Flaker 1/> Area 15 Min Each Region Completed 06/28/2023 27008 Therapy Proc, Neuromuscular Reeducation Of Movement Completed 06/28/2023 16417 Therapy Proc 1/> Area 15Min Ea Completed 06/24/2023 89887 Therapeutic Activities Direc t, Each 15 Minutes Completed 06/24/2023 86609 Manual Potash Flaker 1/> Area 15 Min Each Region Completed 06/24/2023 81595 Therapy Proc, Neuromuscular Reeducation Of Movement Completed 06/24/2023 46800 Therapy Proc 1/> Area 15Min Ea Completed 06/24/2023 10489 Hot/Cold Pack Completed 06/21/2023 19291 Manual Potash Flaker 1/> Area 15 Min Each Region Completed 06/21/2023 83270 Hot/Cold Pack Completed 06/21/2023 93616 Therapy Proc 1/> Area 15Min Ea Completed 06/21/2023 84806 Therapy Proc, Neuromuscular Reeducation Of Movement Completed 06/21/2023 97925 Therapeutic Activities Direc t, Each 15 Minutes Completed 06/19/2023 77659 Manual Potash Flaker 1/> Area 15 Min Each Region Completed 06/19/2023 11535 Therapy Proc, Neuromuscular Reeducation Of Movement Completed 06/19/2023 91060 Therapy Proc 1/> Area 15Min Ea Completed 06/19/2023 63633 Hot/Cold Pack Completed 06/19/2023 12905 Therapeutic Activities Direc t, Each 15 Minutes Completed 06/17/2023 41488 Therapeutic Activities Direc t, Each 15 Minutes Completed 06/17/2023 95722 Manual Potash Flaker 1/> Area 15 Min Each Region Completed 06/17/2023 69720 Therapy Proc, Neuromuscular Reeducation Of Movement Completed 06/17/2023 64344 Therapy Proc 1/> Area 15Min Ea Completed 06/17/2023 56194 Hot/Cold Pack Completed 06/14/2023 12823 Therapy Proc 1/> Area 15Min Ea Completed 06/14/2023 77891 Hot/Cold Pack Completed 06/14/2023 21053 Therapy Proc, Neuromuscular Reeducation Of Movement Completed 06/14/2023 25231 Manual Potash Flaker 1/> Area 15 Min Each Region Completed 06/14/2023 52842 Therapeutic Activities Direc t, Each 15 Minutes Completed 06/12/2023 03211 Therapeutic Activities Direc t, Each 15 Minutes Completed 06/12/2023 82765 Manual Potash Flaker 1/> Area 15 Min Each Region Completed 06/12/2023 30217 Therapy Proc, Neuromuscular Reeducation Of Movement Completed 06/12/2023 45528 Therapy Proc 1/> Area 15Min Ea Completed 06/12/2023 22861 Hot/Cold Pack Completed 06/07/2023 51599 Therapeutic Activities Direc t, Each 15 Minutes Completed 06/07/2023 19471 Manual Potash Flaker 1/> Area 15 Min Each Region Completed 06/07/2023 17195 Therapy Proc, Neuromuscular Reeducation Of Movement Completed 06/07/2023 32686 Therapy Proc 1/> Area 15Min Ea Completed 06/05/2023 98089 Therapeutic Activities Direc t, Each 15 Minutes Completed 06/05/2023 66586 Hot/Cold Pack Completed 06/05/2023 88696 Therapy Proc 1/> Area 15Min Ea Completed 06/05/2023 73568 Manual Potash Flaker 1/> Area 15 Min Each Region Completed 06/05/2023 50929 Therapy Proc, Neuromuscular Reeducation Of Movement Completed 06/03/2023 61330 Therapeutic Activities Direc t, Each 15 Minutes Completed 06/03/2023 78140 Manual Potash Flaker 1/> Area 15 Min Each Region Completed 06/03/2023 66422 Therapy Proc, Neuromuscular Reeducation Of Movement Completed 06/03/2023 42056 Therapy Proc 1/> Area 15Min Ea Completed 06/03/2023 07885 Hot/Cold Pack Completed 05/31/2023 47762 Therapeutic Activities Direc t, Each 15 Minutes Completed 05/31/2023 66748 Manual Potash Flaker 1/> Area 15 Min Each Region Completed 05/31/2023 06692 Therapy Proc, Neuromuscular Reeducation Of Movement Completed 05/31/2023 75425 Hot/Cold Pack Completed 05/29/2023 28607 Therapeutic Activities Direc t, Each 15 Minutes Completed 05/29/2023 69239 Hot/Cold Pack Completed 05/29/2023 29679 Therapy Proc, Neuromuscular Reeducation Of Movement Completed 05/29/2023 86562 Manual Potash Flaker 1/> Area 15 Min Each Region Completed 05/29/2023 17710 Therapeutic Procedure Group Completed 05/27/2023 77279 Therapeutic Activities Direc t, Each 15 Minutes Completed 05/27/2023 85714 Therapeutic Procedure Group Completed 05/27/2023 44985 Manual Potash Flaker 1/> Area 15 Min Each Region Completed 05/27/2023 30146 Therapy Proc, Neuromuscular Reeducation Of Movement Completed 05/27/2023 18546 Hot/Cold Pack Completed 05/24/2023 69364 Therapy Proc 1/> Area 15Min Ea Completed 05/24/2023 95580 Hot/Cold Pack Completed 05/24/2023 77358 Manual Potash Flaker 1/> Area 15 Min Each Region Completed 05/24/2023 53663 Therapy Proc, Neuromuscular Reeducation Of Movement Completed 05/24/2023 12538 Therapeutic Activities Direc t, Each 15 Minutes Completed 05/22/2023 00445 Therapeutic Activities Direc t, Each 15 Minutes Completed 05/22/2023 55030 Manual Potash Flaker 1/> Area 15 Min Each Region Completed 05/22/2023 22934 Therapy Proc, Neuromuscular Reeducation Of Movement Completed 05/22/2023 31561 Therapy Proc 1/> Area 15Min Ea Completed 05/22/2023 94170 Hot/Cold Pack Completed 05/20/2023 80760 Therapeutic Activities Direc t, Each 15 Minutes Completed 05/20/2023 25150 Manual Potash Flaker 1/> Area 15 Min Each Region Completed 05/20/2023 42785 Therapy Proc, Neuromuscular Reeducation Of Movement Completed 05/20/2023 15008 Therapy Proc 1/> Area 15Min Ea Completed 05/20/2023 04351 Hot/Cold Pack Completed 05/17/2023 87393 Therapy Proc 1/> Area 15Min Ea Completed 05/17/2023 40546 Hot/Cold Pack Completed 05/17/2023 74707 Therapy Proc, Neuromuscular Reeducation Of Movement Completed 05/17/2023 84157 Manual Potash Flaker 1/> Area 15 Min Each Region Completed 05/17/2023 67609 Therapeutic Activities Direc t, Each 15 Minutes Completed 05/15/2023 46476 Therapeutic Activities Direc t, Each 15 Minutes Completed 05/15/2023 23556 Manual Potash Flaker 1/> Area 15 Min Each Region Completed 05/15/2023 00575 Therapy Proc, Neuromuscular Reeducation Of Movement Completed 05/15/2023 23803 Therapy Proc 1/> Area 15Min Ea Completed 05/15/2023 67666 Hot/Cold Pack Completed 2023 17330 Therapeutic Activities Direc t, Each 15 Minutes Completed 2023 40111 Manual Potash Flaker 1/> Area 15 Min Each Region Completed 2023 12592 Therapy Proc, Neuromuscular Reeducation Of Movement Completed 2023 17656 Therapy Proc 1/> Area 15Min Ea Completed 2023 41090 Hot/Cold Pack Completed 05/10/2023 20564 Manual Potash Flaker 1/> Area 15 Min Each Region Completed 05/10/2023 39202 Hot/Cold Pack Completed 05/10/2023 35977 Therapy Proc 1/> Area 15Min Ea Completed 05/10/2023 61204 Therapeutic Activities Direc t, Each 15 Minutes Completed 05/10/2023 92861 Therapy Proc, Neuromuscular Reeducation Of Movement Completed 05/08/2023 37349 Therapeutic Activities Direc t, Each 15 Minutes Completed 05/08/2023 66910 Manual Potash Flaker 1/> Area 15 Min Each Region Completed 05/08/2023 54795 Therapy Proc, Neuromuscular Reeducation Of Movement Completed 05/08/2023 37828 Therapy Proc 1/> Area 15Min Ea Completed 05/08/2023 07938 Hot/Cold Pack Completed 05/06/2023 77744 Therapeutic Activities Direc t, Each 15 Minutes Completed 05/06/2023 67190 Manual Potash Flaker 1/> Area 15 Min Each Region Completed 05/06/2023 98597 Therapy Proc, Neuromuscular Reeducation Of Movement Completed 05/06/2023 57354 Therapy Proc 1/> Area 15Min Ea Completed 05/06/2023 88117 Hot/Cold Pack Completed 05/02/2023 33151 Therapeutic Activities Direc t, Each 15 Minutes Completed 05/02/2023 32001 Therapy Proc 1/> Area 15Min Ea Completed 05/02/2023 38897 Therapy Proc, Neuromuscular Reeducation Of Movement Completed 05/02/2023 76555 Manual Potash Flaker 1/> Area 15 Min Each Region Completed 04/30/2023 81157 Manual Potash Flaker 1/> Area 15 Min Each Region Completed 04/30/2023 29200 Therapy Proc, Neuromuscular Reeducation Of Movement Completed 04/30/2023 92537 Therapy Proc 1/> Area 15Min Ea Completed 04/30/2023 81489 Hot/Cold Pack Completed 04/24/2023 34229 Manual Potash Flaker 1/> Area 15 Min Each Region Completed 04/24/2023 99515 Therapy Proc, Neuromuscular Reeducation Of Movement Completed 04/24/2023 00243 Therapy Proc 1/> Area 15Min Ea Completed 04/22/2023 04391 Hot/Cold Pack Completed 04/22/2023 59113 Therapy Proc 1/> Area 15Min Ea Completed 04/22/2023 95964 Manual Potash Flaker 1/> Area 15 Min Each Region Completed 04/22/2023 15517 Therapy Proc, Neuromuscular Reeducation Of Movement Completed 04/19/2023 01963 Therapy Proc, Neuromuscular Reeducation Of Movement Completed 04/19/2023 79186 Therapy Proc 1/> Area 15Min Ea Completed 04/19/2023 90435 Hot/Cold Pack Completed 04/19/2023 53474 Manual Potash Flaker 1/> Area 15 Min Each Region Completed 04/18/2023 92513 Manual Potash Flaker 1/> Area 15 Min Each Region Completed 04/18/2023 22184 Therapy Proc, Neuromuscular Reeducation Of Movement Completed 04/18/2023 67804 Therapy Proc 1/> Area 15Min Ea Completed 04/15/2023 84591 Manual Potash Flaker 1/> Area 15 Min Each Region Completed 04/15/2023 87473 Therapy Proc, Neuromuscular Reeducation Of Movement Completed 04/15/2023 44354 Therapy Proc 1/> Area 15Min Ea Completed 04/15/2023 73548 Hot/Cold Pack Completed 04/12/2023 43502 Therapy Proc, Neuromuscular Reeducation Of Movement Completed 04/12/2023 34799 Hot/Cold Pack Completed 04/12/2023 60191 Therapy Proc 1/> Area 15Min Ea Completed 04/12/2023 70272 Manual Potash Flaker 1/> Area 15 Min Each Region Completed 04/10/2023 89880 Manual Potash Flaker 1/> Area 15 Min Each Region Completed 04/10/2023 64667 Therapy Proc, Neuromuscular Reeducation Of Movement Completed 04/10/2023 44272 Therapy Proc 1/> Area 15Min Ea Completed 04/08/2023 43295 Manual Potash Flaker 1/> Area 15 Min Each Region Completed 04/08/2023 64466 Therapy Proc, Neuromuscular Reeducation Of Movement Completed 04/08/2023 42199 Therapy Proc 1/> Area 15Min Ea Completed 04/05/2023 42253 Manual Potash Flaker 1/> Area 15 Min Each Region Completed 04/05/2023 79161 Therapy Proc, Neuromuscular Reeducation Of Movement Completed 04/05/2023 88463 Therapy Proc 1/> Area 15Min Ea Completed 04/03/2023 99794 Therapy Proc 1/> Area 15Min Ea Completed 04/03/2023 78720 Manual Potash Flaker 1/> Area 15 Min Each Region Completed 04/03/2023 44711 Therapy Proc, Neuromuscular Reeducation Of Movement Completed 04/01/2023 72028 Manual Potash Flaker 1/> Area 15 Min Each Region Completed 04/01/2023 65424 Therapy Proc, Neuromuscular Reeducation Of Movement Completed 04/01/2023 31055 Therapy Proc 1/> Area 15Min Ea Completed 03/29/2023 97565 Manual Potash Flaker 1/> Area 15 Min Each Region Completed 03/29/2023 18074 Therapy Proc, Neuromuscular Reeducation Of Movement Completed 03/29/2023 31939 Therapy Proc 1/> Area 15Min Ea Completed 03/27/2023 56667 Manual Potash Flaker 1/> Area 15 Min Each Region Completed 03/27/2023 81257 Therapy Proc, Neuromuscular Reeducation Of Movement Completed 03/27/2023 70399 Therapy Proc 1/> Area 15Min Ea Completed 03/25/2023 75677 Manual Potash Flaker 1/> Area 15 Min Each Region Completed 03/25/2023 07278 Therapy Proc, Neuromuscular Reeducation Of Movement Completed 03/25/2023 39958 Therapy Proc 1/> Area 15Min Ea Completed 03/22/2023 05743 Therapy Proc, Neuromuscular Reeducation Of Movement Completed 03/22/2023 39464 Therapy Proc 1/> Area 15Min Ea Completed 03/22/2023 33111 Manual Potash Flaker 1/> Area 15 Min Each Region Completed 03/20/2023 23718 Manual Potash Flaker 1/> Area 15 Min Each Region Completed 03/20/2023 58582 Therapy Proc, Neuromuscular Reeducation Of Movement Completed 03/20/2023 08193 Therapy Proc 1/> Area 15Min Ea Completed 03/18/2023 39338 Manual Potash Flaker 1/> Area 15 Min Each Region Completed 03/18/2023 00726 Therapy Proc, Neuromuscular Reeducation Of Movement Completed 03/18/2023 96350 Therapy Proc 1/> Area 15Min Ea Completed 03/15/2023 24555 Manual Potash Flaker 1/> Area 15 Min Each Region Completed 03/15/2023 47522 Therapy Proc, Neuromuscular Reeducation Of Movement Completed 03/15/2023 66244 Therapy Proc 1/> Area 15Min Ea Completed 03/13/2023 80412 Physical Therapy Evaluation Moderate Complexity Completed 03/13/2023 79486 Manual Potash Flaker 1/> Area 15 Min Each Region Completed 03/13/2023 67452 Therapy Proc 1/> Area 15Min Ea Completed 02/18/2023 45295 Venipuncture Routine Complet ed Medical Devices Description [...] lking, not elsewhere classified Aki Garcia DPT 07/12/2023 M25.511 Pain in right shoulder [...] lking, not elsewhere classified kAi Garcia, DPT 05/22/2023 M25.511 Pain in right [...] I10 Essential (primary) hyperten vickie [facility] [place] 02/18/2023 E55.9 Vitamin D deficiency, unspec ified Dawson Almodovar, DO 02/18/2023 E55.9 Vitamin D deficiency, unspec ified [facility] [place] 02/18/2023 E53.8 Deficiency of ot her specified B group vitamins Dawson Almodovar, DO 02/18/2023 E53.8 Deficiency of ot her specified B group vitamins [facility] - [place] Plan of Treatment Future Appointment(s):* 09/06/2023 10:30 am - Dawson Almodovar DO at [place] * 08/28/2023 10:30 am - [facility] at [place] Functional Status Description No Information Available Mental Status Description No Information Available Referrals Description No Information Available"
--- OUTSIDE RECORDS SUMMARY | 2023-10-11 13:17 | External Medical Summary | Continuity of Care Document ---
Author Name Unknown Organization Family Practice [facility] Address [address] [place] [address] Phone [phone] Problems Active Problems Provider Date Essential hypertension [...] SIG Qnty Indications Order ing Provider Date Nipldauhky20ze Tablets 2 tablets by mouth every day 30tabs R60.0 Dawson Almodovar DO 10/05/2022 Multi + [place]-3 Adult GummiesChewtabs 1 by mouth every day Dawson Almodovar DO 08/08/2022 Vitamin B ComplexTablets 1 by mouth every day Dawson Almodovar DO 08/08/2022 Losartan Potassium/Hydrochlorothi [id number] Tablets 1 by mouth every day 90tabs I10 Dawson Almodovar DO 03/21/2020 Juice Plus Fibre` Dawson Almodovar DO 02/19/2018 Aspirin Adult Low Iwcm10gy Tablets DR 1 by mouth every day Unknown Citalopram [id number] Tablets 1 by mouth every day 90tabs F41.1 Dawson CintiaAlvin Almodovar, DO Vitamin D3 Maximum [id number] (5000 Ut) Capsules 1 by mouth once daily Unknown Immunizations CPT Code Status Date Vaccine Lot # [id number] Given 07/14/2009 Pneumococcal Vaccine/Pneu movax 23 [id number] Refused 10/19/2022 Shingrix 52301 Refused 08/08/2022 Pneumococcal Conjugate-Pr evnar 20 57670 Refused 08/08/2022 Influenza Vac, Split, Preservative Free High Dose Age 65 & > 27713 Refused 04/20/2022 Moderna Sars-Co v-2 (Cov-19) vacc,100 mcg/ 0.5 mL 12Y+EMR Doc Only 63607 Refused 10/16/2021 Influenza Virus Vaccine, Quadrivalent (Cciiv4), Derived From Cell 27946 Refused 10/16/2021 Shingrix 27056 Refused 10/16/2021 Pneumococcal Conjugate-Pr evnar 13 05226 Refused 03/20/2021 Pfizer Sars-Cov -2 (Cov-19) vacc 30mcg/0.3ML 12Y+ EMR Doc Only 82650 Refused 04/17/2019 Influenza Vacci ne, Inactivated, Subunit, Adjuvanted, For Intrmusc 30990 Refused 01/29/2019 Tdap (Tetanus, diphtheria & acel. pertussis) Adacel or Boostrix 58704 Refused 01/29/2019 Pneumococcal Conjugate-Pr evnar 13 Vital [...] H/L Range N ote CBC W/Diff 02/18/2023 [facility] [address] [place] [address] [phone] WBC 7.6 10^3/M3 3.1-9.2 RBC 4.19 10^6/M3 3.70-5.50 HGB 12.2 GR/DL 11.5-16.1 HCT 36.6 % 34.5-47.8 MCV 87.5 CUMICR 82.6-95.8 MCH 29.1 PICOGR 27.9-32.9 MCHC 33.3 % 32.6-35.4 RDW 14.9 % High 11.4-14.6 PLT 225 10^3/M3 140-350 MPV 8.8 CUMICR 7.0-10.6 %Neut 57.1 % 40.0-75.0 %Lymph 29.4 % 17.0-45.0 %[place] 8.6 % 1.0-11.0 %Eos 3.8 % 0.0-6.0 %[place] 1.1 % 0.0-2.0 #Neut 4.4 10^3/M3 1.5-8.0 #Lymph 2.2 10^3/M3 0.8-3.2 #[place] 0.7 10^3/M3 0.0-0.8 #Eos 0.3 10^3/m3 0.0-0.4 #Baso 0.1 10^3/m3 0.0-0.2 Comp. Met 02/18/2023 [facility] [address] [place] [address] [phone] Glucose 96 mg/dL 70-110 BUN 18 mg/dL [...] 2.0-3.4 GFR 72 ML/MIN/1.73SQM >60 Lipid 02/18/2023 [facility] [address] [place] [address] [phone] Cholesterol 164 mg/dL 0-200 1 Triglyceride 79 mg/dL 0-150 2 HDLD 62 mg/dL See Comment 3 Measured LDL 99 mg/dL 0-130 4 Calc VLDL 15.8 mg/dL See Comment 5 Chol/HDL 2.6 RATIO See Comment 6 Non-HDL 102 mg/dL See Comment 7 Laboratory test finding 02/18/2023 [facility] [address] [place] [address] [phone] Vitd-25Oh 77 ng/mL 30-100 VB12 411 pg/mL [...] Target Procedures Date Code Description Status 07/29/2023 41478 Manual Bench Assembly Inspector 1/> Area 15 Min Each Region Completed 07/29/2023 30923 Therapeutic Activities Direc t, Each 15 Minutes Completed 07/29/2023 09346 Hot/Cold Pack Completed 07/29/2023 71530 Therapy Proc, Neuromuscular Reeducation Of Movement Completed 07/29/2023 87220 Therapy Proc 1/> Area 15Min Ea Completed 07/22/2023 58825 Therapeutic Activities Direc t, Each 15 Minutes Completed 07/22/2023 20639 Manual Bench Assembly Inspector 1/> Area 15 Min Each Region Completed 07/22/2023 93049 Therapy Proc, Neuromuscular Reeducation Of Movement Completed 07/22/2023 42684 Therapy Proc 1/> Area 15Min Ea Completed 07/22/2023 79667 Hot/Cold Pack Completed 07/19/2023 52565 Therapeutic Activities Direc t, Each 15 Minutes Completed 07/19/2023 13838 Manual Bench Assembly Inspector 1/> Area 15 Min Each Region Completed 07/19/2023 70212 Therapy Proc, Neuromuscular Reeducation Of Movement Completed 07/19/2023 49514 Therapy Proc 1/> Area 15Min Ea Completed 07/19/2023 96991 Hot/Cold Pack Completed 07/15/2023 24874 Therapy Proc, Neuromuscular Reeducation Of Movement Completed 07/15/2023 64450 Hot/Cold Pack Completed 07/15/2023 60657 Manual Bench Assembly Inspector 1/> Area 15 Min Each Region Completed 07/15/2023 32918 Therapeutic Activities Direc t, Each 15 Minutes Completed 07/12/2023 75989 Therapeutic Activities Direc t, Each 15 Minutes Completed 07/12/2023 81356 Manual Bench Assembly Inspector 1/> Area 15 Min Each Region Completed 07/12/2023 91761 Therapy Proc, Neuromuscular Reeducation Of Movement Completed 07/12/2023 35814 Therapy Proc 1/> Area 15Min Ea Completed 07/12/2023 92223 Hot/Cold Pack Completed 07/10/2023 48681 Therapeutic Activities Direc t, Each 15 Minutes Completed 07/10/2023 28597 Manual Bench Assembly Inspector 1/> Area 15 Min Each Region Completed 07/10/2023 51993 Therapy Proc, Neuromuscular Reeducation Of Movement Completed 07/10/2023 23070 Therapy Proc 1/> Area 15Min Ea Completed 07/10/2023 33825 Hot/Cold Pack Completed 07/08/2023 13758 Therapy Proc 1/> Area 15Min Ea Completed 07/08/2023 69105 Hot/Cold Pack Completed 07/08/2023 21554 Therapy Proc, Neuromuscular Reeducation Of Movement Completed 07/08/2023 90890 Therapeutic Activities Direc t, Each 15 Minutes Completed 07/08/2023 28221 Manual Bench Assembly Inspector 1/> Area 15 Min Each Region Completed 07/05/2023 70024 Therapeutic Activities Direc t, Each 15 Minutes Completed 07/05/2023 88766 Manual Bench Assembly Inspector 1/> Area 15 Min Each Region Completed 07/05/2023 57013 Therapy Proc, Neuromuscular Reeducation Of Movement Completed 07/05/2023 78658 Therapy Proc 1/> Area 15Min Ea Completed 07/05/2023 64888 Hot/Cold Pack Completed 07/03/2023 38261 Therapeutic Activities Direc t, Each 15 Minutes Completed 07/03/2023 54853 Manual Bench Assembly Inspector 1/> Area 15 Min Each Region Completed 07/03/2023 93578 Therapy Proc, Neuromuscular Reeducation Of Movement Completed 07/03/2023 60649 Therapy Proc 1/> Area 15Min Ea Completed 07/03/2023 26240 Hot/Cold Pack Completed 07/01/2023 51178 Therapy Proc, Neuromuscular Reeducation Of Movement Completed 07/01/2023 93998 Hot/Cold Pack Completed 07/01/2023 43103 Therapy Proc 1/> Area 15Min Ea Completed 07/01/2023 49822 Manual Bench Assembly Inspector 1/> Area 15 Min Each Region Completed 07/01/2023 04974 Therapeutic Activities Direc t, Each 15 Minutes Completed 06/28/2023 82215 Therapeutic Activities Direc t, Each 15 Minutes Completed 06/28/2023 65704 Manual Bench Assembly Inspector 1/> Area 15 Min Each Region Completed 06/28/2023 18128 Therapy Proc, Neuromuscular Reeducation Of Movement Completed 06/28/2023 33629 Therapy Proc 1/> Area 15Min Ea Completed 06/24/2023 76555 Therapeutic Activities Direc t, Each 15 Minutes Completed 06/24/2023 15220 Manual Bench Assembly Inspector 1/> Area 15 Min Each Region Completed 06/24/2023 65617 Therapy Proc, Neuromuscular Reeducation Of Movement Completed 06/24/2023 21547 Therapy Proc 1/> Area 15Min Ea Completed 06/24/2023 12755 Hot/Cold Pack Completed 06/21/2023 60270 Therapy Proc 1/> Area 15Min Ea Completed 06/21/2023 80860 Hot/Cold Pack Completed 06/21/2023 65359 Therapeutic Activities Direc t, Each 15 Minutes Completed 06/21/2023 89355 Manual Bench Assembly Inspector 1/> Area 15 Min Each Region Completed 06/21/2023 07768 Therapy Proc, Neuromuscular Reeducation Of Movement Completed 06/19/2023 75744 Therapeutic Activities Direc t, Each 15 Minutes Completed 06/19/2023 87613 Manual Bench Assembly Inspector 1/> Area 15 Min Each Region Completed 06/19/2023 57277 Therapy Proc, Neuromuscular Reeducation Of Movement Completed 06/19/2023 27724 Therapy Proc 1/> Area 15Min Ea Completed 06/19/2023 20328 Hot/Cold Pack Completed 06/17/2023 56595 Therapeutic Activities Direc t, Each 15 Minutes Completed 06/17/2023 34640 Manual Bench Assembly Inspector 1/> Area 15 Min Each Region Completed 06/17/2023 99864 Therapy Proc, Neuromuscular Reeducation Of Movement Completed 06/17/2023 12125 Therapy Proc 1/> Area 15Min Ea Completed 06/17/2023 30536 Hot/Cold Pack Completed 06/14/2023 58325 Therapy Proc, Neuromuscular Reeducation Of Movement Completed 06/14/2023 58457 Hot/Cold Pack Completed 06/14/2023 35704 Therapy Proc 1/> Area 15Min Ea Completed 06/14/2023 78478 Manual Bench Assembly Inspector 1/> Area 15 Min Each Region Completed 06/14/2023 22292 Therapeutic Activities Direc t, Each 15 Minutes Completed 06/12/2023 77835 Therapeutic Activities Direc t, Each 15 Minutes Completed 06/12/2023 90650 Manual Bench Assembly Inspector 1/> Area 15 Min Each Region Completed 06/12/2023 30956 Therapy Proc, Neuromuscular Reeducation Of Movement Completed 06/12/2023 26476 Therapy Proc 1/> Area 15Min Ea Completed 06/12/2023 81281 Hot/Cold Pack Completed 06/07/2023 84987 Therapeutic Activities Direc t, Each 15 Minutes Completed 06/07/2023 29105 Manual Bench Assembly Inspector 1/> Area 15 Min Each Region Completed 06/07/2023 30259 Therapy Proc, Neuromuscular Reeducation Of Movement Completed 06/07/2023 00367 Therapy Proc 1/> Area 15Min Ea Completed 06/05/2023 06096 Therapeutic Activities Direc t, Each 15 Minutes Completed 06/05/2023 96145 Hot/Cold Pack Completed 06/05/2023 09601 Therapy Proc 1/> Area 15Min Ea Completed 06/05/2023 65931 Manual Bench Assembly Inspector 1/> Area 15 Min Each Region Completed 06/05/2023 91191 Therapy Proc, Neuromuscular Reeducation Of Movement Completed 06/03/2023 33602 Therapeutic Activities Direc t, Each 15 Minutes Completed 06/03/2023 79786 Manual Bench Assembly Inspector 1/> Area 15 Min Each Region Completed 06/03/2023 02312 Therapy Proc, Neuromuscular Reeducation Of Movement Completed 06/03/2023 51124 Therapy Proc 1/> Area 15Min Ea Completed 06/03/2023 67336 Hot/Cold Pack Completed 05/31/2023 61129 Therapeutic Activities Direc t, Each 15 Minutes Completed 05/31/2023 80524 Manual Bench Assembly Inspector 1/> Area 15 Min Each Region Completed 05/31/2023 44818 Therapy Proc, Neuromuscular Reeducation Of Movement Completed 05/31/2023 17934 Hot/Cold Pack Completed 05/29/2023 77420 Therapeutic Procedure Group Completed 05/29/2023 18596 Hot/Cold Pack Completed 05/29/2023 58088 Therapy Proc, Neuromuscular Reeducation Of Movement Completed 05/29/2023 24167 Manual Bench Assembly Inspector 1/> Area 15 Min Each Region Completed 05/29/2023 34339 Therapeutic Activities Direc t, Each 15 Minutes Completed 05/27/2023 20329 Therapeutic Activities Direc t, Each 15 Minutes Completed 05/27/2023 80033 Therapeutic Procedure Group Completed 05/27/2023 97734 Manual Bench Assembly Inspector 1/> Area 15 Min Each Region Completed 05/27/2023 78220 Therapy Proc, Neuromuscular Reeducation Of Movement Completed 05/27/2023 97432 Hot/Cold Pack Completed 05/24/2023 91638 Hot/Cold Pack Completed 05/24/2023 86056 Therapy Proc 1/> Area 15Min Ea Completed 05/24/2023 61810 Therapy Proc, Neuromuscular Reeducation Of Movement Completed 05/24/2023 29786 Therapeutic Activities Direc t, Each 15 Minutes Completed 05/24/2023 11649 Manual Bench Assembly Inspector 1/> Area 15 Min Each Region Completed 05/22/2023 57224 Therapeutic Activities Direc t, Each 15 Minutes Completed 05/22/2023 39979 Manual Bench Assembly Inspector 1/> Area 15 Min Each Region Completed 05/22/2023 16809 Therapy Proc, Neuromuscular Reeducation Of Movement Completed 05/22/2023 70673 Therapy Proc 1/> Area 15Min Ea Completed 05/22/2023 38278 Hot/Cold Pack Completed 05/20/2023 40397 Therapeutic Activities Direc t, Each 15 Minutes Completed 05/20/2023 58604 Manual Bench Assembly Inspector 1/> Area 15 Min Each Region Completed 05/20/2023 77222 Therapy Proc, Neuromuscular Reeducation Of Movement Completed 05/20/2023 58947 Therapy Proc 1/> Area 15Min Ea Completed 05/20/2023 62317 Hot/Cold Pack Completed 05/17/2023 93932 Therapy Proc 1/> Area 15Min Ea Completed 05/17/2023 48280 Hot/Cold Pack Completed 05/17/2023 29200 Therapy Proc, Neuromuscular Reeducation Of Movement Completed 05/17/2023 73644 Manual Bench Assembly Inspector 1/> Area 15 Min Each Region Completed 05/17/2023 14805 Therapeutic Activities Direc t, Each 15 Minutes Completed 05/15/2023 53378 Therapeutic Activities Direc t, Each 15 Minutes Completed 05/15/2023 50133 Manual Bench Assembly Inspector 1/> Area 15 Min Each Region Completed 05/15/2023 84994 Therapy Proc, Neuromuscular Reeducation Of Movement Completed 05/15/2023 97296 Therapy Proc 1/> Area 15Min Ea Completed 05/15/2023 13276 Hot/Cold Pack Completed 2023 56386 Therapeutic Activities Direc t, Each 15 Minutes Completed 2023 88194 Manual Bench Assembly Inspector 1/> Area 15 Min Each Region Completed 2023 00772 Therapy Proc, Neuromuscular Reeducation Of Movement Completed 2023 24997 Therapy Proc 1/> Area 15Min Ea Completed 2023 04603 Hot/Cold Pack Completed 05/10/2023 07426 Therapeutic Activities Direc t, Each 15 Minutes Completed 05/10/2023 43031 Hot/Cold Pack Completed 05/10/2023 45240 Therapy Proc 1/> Area 15Min Ea Completed 05/10/2023 49049 Manual Bench Assembly Inspector 1/> Area 15 Min Each Region Completed 05/10/2023 12492 Therapy Proc, Neuromuscular Reeducation Of Movement Completed 05/08/2023 77651 Therapeutic Activities Direc t, Each 15 Minutes Completed 05/08/2023 55767 Manual Bench Assembly Inspector 1/> Area 15 Min Each Region Completed 05/08/2023 05117 Therapy Proc, Neuromuscular Reeducation Of Movement Completed 05/08/2023 32438 Therapy Proc 1/> Area 15Min Ea Completed 05/08/2023 72212 Hot/Cold Pack Completed 05/06/2023 47562 Therapeutic Activities Direc t, Each 15 Minutes Completed 05/06/2023 71543 Manual Bench Assembly Inspector 1/> Area 15 Min Each Region Completed 05/06/2023 31328 Therapy Proc, Neuromuscular Reeducation Of Movement Completed 05/06/2023 88029 Therapy Proc 1/> Area 15Min Ea Completed 05/06/2023 55738 Hot/Cold Pack Completed 05/02/2023 71834 Therapeutic Activities Direc t, Each 15 Minutes Completed 05/02/2023 24398 Therapy Proc 1/> Area 15Min Ea Completed 05/02/2023 86600 Therapy Proc, Neuromuscular Reeducation Of Movement Completed 05/02/2023 98210 Manual Bench Assembly Inspector 1/> Area 15 Min Each Region Completed 04/30/2023 26572 Manual Bench Assembly Inspector 1/> Area 15 Min Each Region Completed 04/30/2023 77984 Therapy Proc, Neuromuscular Reeducation Of Movement Completed 04/30/2023 35718 Therapy Proc 1/> Area 15Min Ea Completed 04/30/2023 54637 Hot/Cold Pack Completed 04/24/2023 64841 Manual Bench Assembly Inspector 1/> Area 15 Min Each Region Completed 04/24/2023 66485 Therapy Proc, Neuromuscular Reeducation Of Movement Completed 04/24/2023 78954 Therapy Proc 1/> Area 15Min Ea Completed 04/22/2023 59635 Hot/Cold Pack Completed 04/22/2023 97543 Therapy Proc 1/> Area 15Min Ea Completed 04/22/2023 10161 Manual Bench Assembly Inspector 1/> Area 15 Min Each Region Completed 04/22/2023 88139 Therapy Proc, Neuromuscular Reeducation Of Movement Completed 04/19/2023 16650 Therapy Proc, Neuromuscular Reeducation Of Movement Completed 04/19/2023 21876 Therapy Proc 1/> Area 15Min Ea Completed 04/19/2023 29688 Hot/Cold Pack Completed 04/19/2023 82205 Manual Bench Assembly Inspector 1/> Area 15 Min Each Region Completed 04/18/2023 27336 Manual Bench Assembly Inspector 1/> Area 15 Min Each Region Completed 04/18/2023 67968 Therapy Proc, Neuromuscular Reeducation Of Movement Completed 04/18/2023 25586 Therapy Proc 1/> Area 15Min Ea Completed 04/15/2023 70900 Manual Bench Assembly Inspector 1/> Area 15 Min Each Region Completed 04/15/2023 16695 Therapy Proc, Neuromuscular Reeducation Of Movement Completed 04/15/2023 70530 Therapy Proc 1/> Area 15Min Ea Completed 04/15/2023 33639 Hot/Cold Pack Completed 04/12/2023 11822 Therapy Proc, Neuromuscular Reeducation Of Movement Completed 04/12/2023 51145 Hot/Cold Pack Completed 04/12/2023 08128 Therapy Proc 1/> Area 15Min Ea Completed 04/12/2023 70961 Manual Bench Assembly Inspector 1/> Area 15 Min Each Region Completed 04/10/2023 20645 Manual Bench Assembly Inspector 1/> Area 15 Min Each Region Completed 04/10/2023 20557 Therapy Proc, Neuromuscular Reeducation Of Movement Completed 04/10/2023 07988 Therapy Proc 1/> Area 15Min Ea Completed 04/08/2023 19953 Manual Bench Assembly Inspector 1/> Area 15 Min Each Region Completed 04/08/2023 36864 Therapy Proc, Neuromuscular Reeducation Of Movement Completed 04/08/2023 00159 Therapy Proc 1/> Area 15Min Ea Completed 04/05/2023 91058 Manual Bench Assembly Inspector 1/> Area 15 Min Each Region Completed 04/05/2023 93863 Therapy Proc, Neuromuscular Reeducation Of Movement Completed 04/05/2023 45479 Therapy Proc 1/> Area 15Min Ea Completed 04/03/2023 24101 Therapy Proc 1/> Area 15Min Ea Completed 04/03/2023 79629 Manual Bench Assembly Inspector 1/> Area 15 Min Each Region Completed 04/03/2023 84997 Therapy Proc, Neuromuscular Reeducation Of Movement Completed 04/01/2023 35675 Manual Bench Assembly Inspector 1/> Area 15 Min Each Region Completed 04/01/2023 73987 Therapy Proc, Neuromuscular Reeducation Of Movement Completed 04/01/2023 57777 Therapy Proc 1/> Area 15Min Ea Completed 03/29/2023 83533 Manual Bench Assembly Inspector 1/> Area 15 Min Each Region Completed 03/29/2023 29890 Therapy Proc, Neuromuscular Reeducation Of Movement Completed 03/29/2023 01787 Therapy Proc 1/> Area 15Min Ea Completed 03/27/2023 93967 Manual Bench Assembly Inspector 1/> Area 15 Min Each Region Completed 03/27/2023 05485 Therapy Proc, Neuromuscular Reeducation Of Movement Completed 03/27/2023 66754 Therapy Proc 1/> Area 15Min Ea Completed 03/25/2023 75372 Manual Bench Assembly Inspector 1/> Area 15 Min Each Region Completed 03/25/2023 59537 Therapy Proc, Neuromuscular Reeducation Of Movement Completed 03/25/2023 13288 Therapy Proc 1/> Area 15Min Ea Completed 03/22/2023 34771 Therapy Proc, Neuromuscular Reeducation Of Movement Completed 03/22/2023 77258 Therapy Proc 1/> Area 15Min Ea Completed 03/22/2023 25079 Manual Bench Assembly Inspector 1/> Area 15 Min Each Region Completed 03/20/2023 05816 Manual Bench Assembly Inspector 1/> Area 15 Min Each Region Completed 03/20/2023 76862 Therapy Proc, Neuromuscular Reeducation Of Movement Completed 03/20/2023 80624 Therapy Proc 1/> Area 15Min Ea Completed 03/18/2023 69476 Manual Bench Assembly Inspector 1/> Area 15 Min Each Region Completed 03/18/2023 12849 Therapy Proc, Neuromuscular Reeducation Of Movement Completed 03/18/2023 94701 Therapy Proc 1/> Area 15Min Ea Completed 03/15/2023 37213 Manual Bench Assembly Inspector 1/> Area 15 Min Each Region Completed 03/15/2023 02790 Therapy Proc, Neuromuscular Reeducation Of Movement Completed 03/15/2023 06204 Therapy Proc 1/> Area 15Min Ea Completed 03/13/2023 03501 Physical Therapy Evaluation Moderate Complexity Completed 03/13/2023 23592 Manual Bench Assembly Inspector 1/> Area 15 Min Each Region Completed 03/13/2023 95284 Therapy Proc 1/> Area 15Min Ea Completed 02/18/2023 51430 Venipuncture Routine Complet ed Medical Devices Description No Information Available Encounters Type Date Location Provider Dx Diagnosis [place], I10 Essential (pr imary) hypertension K21.9 [...] I10 Essential (primary) hypertdania [facility] [place] 02/18/2023 E55.9 Vitamin D deficiency, unspec ified Dawson Almodovar, DO 02/18/2023 E55.9 Vitamin D deficiency, unspec ified [facility] [place] 02/18/2023 E53.8 Deficiency of ot her specified B group vitamins Dawson Almodovar, DO 02/18/2023 E53.8 Deficiency of ot her specified B group vitamins [facility] - [place] Plan of Treatment Future Appointment(s):* 09/06/2023 10:30 am - Dawson Almodovar DO at [place] * 08/28/2023 10:30 am - [facility] [place] Functional Status Description No Information Available Mental Status Description No Information Available Referrals Description No Information Available"
--- OUTSIDE RECORDS SUMMARY | 2023-10-11 13:18 | External Medical Summary | Continuity of Care Document ---
Author Name AKI GARCIA DPT Address [address] [facility], [address] [place] [id number] Phone [phone] Organization [facility], Address [address] [place] [address] Phone [phone] Problems Active Problems Provider Date Essential hypertension [...] SIG Qnty Indications Order ing Provider Date Cuuudexskl90mj Tablets 2 tablets by mouth every day 30tabs R60.0 Dawson Almodovar DO 10/05/2022 Multi + [place]-3 Adult GummiesChewtabs 1 by mouth every day Dawson Almodovar DO 08/08/2022 Vitamin B ComplexTablets 1 by mouth every day Dawson Almodovar DO 08/08/2022 Losartan Potassium/Hydrochlorothi [id number] Tablets 1 by mouth every day 90tabs I10 Dawson Almodovar, DO 03/21/2020 Juice Plus Fibre` Dawson Almodovar, DO 02/19/2018 Aspirin Adult Low Rkgp33kg Tablets DR 1 by mouth every day Unknown Citalopram [id number] Tablets 1 by mouth every day 90tabs F41.1 Dawson Almodovar, DO Vitamin D3 Maximum [id number] (5000 Ut) Capsules 1 by mouth once daily Unknown Immunizations CPT Code Status Date Vaccine Lot # [id number] Given 07/14/2009 Pneumococcal Vaccine/Pneu movax 23 [id number] Refused 10/19/2022 Shingrix 07351 Refused 08/08/2022 Pneumococcal Conjugate-Pr evnar 20 14109 Refused 08/08/2022 Influenza Vac, Split, Preservative Free High Dose Age 65 & > 00452 Refused 04/20/2022 Moderna Sars-Co v-2 (Cov-19) vacc,100 mcg/ 0.5 mL 12Y+EMR Doc Only 32075 Refused 10/16/2021 Influenza Virus Vaccine, Quadrivalent (Cciiv4), Derived From Cell 72196 Refused 10/16/2021 Shingrix 86881 Refused 10/16/2021 Pneumococcal Conjugate-Pr evnar 13 26573 Refused 03/20/2021 Pfizer Sars-Cov -2 (Cov-19) vacc 30mcg/0.3ML 12Y+ EMR Doc Only 42101 Refused 04/17/2019 Influenza Vacci ne, Inactivated, Subunit, Adjuvanted, For Intrmusc 56846 Refused 01/29/2019 Tdap (Tetanus, diphtheria & acel. pertussis) Adacel or Boostrix 72092 Refused 01/29/2019 Pneumococcal Conjugate-Pr evnar 13 Vital [...] H/L Range N ote CBC W/Diff 02/18/2023 [facility] [address] [place] [address] [phone] WBC 7.6 10^3/M3 3.1-9.2 RBC 4.19 10^6/M3 3.70-5.50 HGB 12.2 GR/DL 11.5-16.1 HCT 36.6 % 34.5-47.8 MCV 87.5 CUMICR 82.6-95.8 MCH 29.1 PICOGR 27.9-32.9 MCHC 33.3 % 32.6-35.4 RDW 14.9 % High 11.4-14.6 PLT 225 10^3/M3 140-350 MPV 8.8 CUMICR 7.0-10.6 %Neut 57.1 % 40.0-75.0 %Lymph 29.4 % 17.0-45.0 %Cameron 8.6 % 1.0-11.0 %Eos 3.8 % 0.0-6.0 %Baso 1.1 % 0.0-2.0 #Neut 4.4 10^3/M3 1.5-8.0 #Lymph 2.2 10^3/M3 0.8-3.2 #Cameron 0.7 10^3/M3 0.0-0.8 #Eos 0.3 10^3/m3 0.0-0.4 #Baso 0.1 10^3/m3 0.0-0.2 Comp. Met 02/18/2023 [facility] [address] [place], [place] [id number] [phone] Glucose 96 mg/dL 70-110 BUN 18 mg/dL [...] 2.0-3.4 GFR 72 ML/MIN/1.73SQM >60 Lipid 02/18/2023 [facility] [address] [place] [address] [phone] Cholesterol 164 mg/dL 0-200 1 Triglyceride 79 mg/dL 0-150 2 HDLD 62 mg/dL See Comment 3 Measured LDL 99 mg/dL 0-130 4 Calc VLDL 15.8 mg/dL See Comment 5 Chol/HDL 2.6 RATIO See Comment 6 Non-HDL 102 mg/dL See Comment 7 Laboratory test finding 02/18/2023 [facility] [address] [place] [address] [phone] Vitd-25Oh 77 ng/mL 30-100 VB12 411 pg/mL [...] LDL Target Procedures Date Code Description Status 07/10/2023 84338 Manual Specialty Cook 1/> Area 15 Min Each Region Completed 07/10/2023 34801 Therapy Proc, Neuromuscular Reeducation Of Movement Completed 07/10/2023 47779 Therapy Proc 1/> Area 15Min Ea Completed 07/10/2023 72362 Hot/Cold Pack Completed 07/10/2023 92262 Therapeutic Activities Direc t, Each 15 Minutes Completed 07/08/2023 74495 Therapeutic Activities Direc t, Each 15 Minutes Completed 07/08/2023 65764 Manual Specialty Cook 1/> Area 15 Min Each Region Completed 07/08/2023 74115 Therapy Proc, Neuromuscular Reeducation Of Movement Completed 07/08/2023 94465 Therapy Proc 1/> Area 15Min Ea Completed 07/08/2023 07014 Hot/Cold Pack Completed 07/05/2023 03125 Therapy Proc 1/> Area 15Min Ea Completed 07/05/2023 09092 Hot/Cold Pack Completed 07/05/2023 66728 Therapy Proc, Neuromuscular Reeducation Of Movement Completed 07/05/2023 38157 Manual Specialty Cook 1/> Area 15 Min Each Region Completed 07/05/2023 97078 Therapeutic Activities Direc t, Each 15 Minutes Completed 07/03/2023 61680 Therapeutic Activities Direc t, Each 15 Minutes Completed 07/03/2023 13156 Manual Specialty Cook 1/> Area 15 Min Each Region Completed 07/03/2023 49085 Therapy Proc, Neuromuscular Reeducation Of Movement Completed 07/03/2023 37921 Therapy Proc 1/> Area 15Min Ea Completed 07/03/2023 85894 Hot/Cold Pack Completed 07/01/2023 41792 Therapeutic Activities Direc t, Each 15 Minutes Completed 07/01/2023 13622 Manual Specialty Cook 1/> Area 15 Min Each Region Completed 07/01/2023 83061 Therapy Proc, Neuromuscular Reeducation Of Movement Completed 07/01/2023 86874 Therapy Proc 1/> Area 15Min Ea Completed 07/01/2023 92585 Hot/Cold Pack Completed 06/28/2023 44404 Manual Specialty Cook 1/> Area 15 Min Each Region Completed 06/28/2023 61529 Therapy Proc 1/> Area 15Min Ea Completed 06/28/2023 74264 Therapy Proc, Neuromuscular Reeducation Of Movement Completed 06/28/2023 80667 Therapeutic Activities Direc t, Each 15 Minutes Completed 06/24/2023 79619 Manual Specialty Cook 1/> Area 15 Min Each Region Completed 06/24/2023 02809 Therapy Proc, Neuromuscular Reeducation Of Movement Completed 06/24/2023 30779 Therapy Proc 1/> Area 15Min Ea Completed 06/24/2023 68094 Hot/Cold Pack Completed 06/24/2023 50344 Therapeutic Activities Direc t, Each 15 Minutes Completed 06/21/2023 34786 Therapeutic Activities Direc t, Each 15 Minutes Completed 06/21/2023 78595 Manual Specialty Cook 1/> Area 15 Min Each Region Completed 06/21/2023 68943 Therapy Proc, Neuromuscular Reeducation Of Movement Completed 06/21/2023 48045 Therapy Proc 1/> Area 15Min Ea Completed 06/21/2023 66402 Hot/Cold Pack Completed 06/19/2023 46385 Therapeutic Activities Direc t, Each 15 Minutes Completed 06/19/2023 91378 Hot/Cold Pack Completed 06/19/2023 36148 Therapy Proc 1/> Area 15Min Ea Completed 06/19/2023 51043 Therapy Proc, Neuromuscular Reeducation Of Movement Completed 06/19/2023 96387 Manual Specialty Cook 1/> Area 15 Min Each Region Completed 06/17/2023 19673 Therapeutic Activities Direc t, Each 15 Minutes Completed 06/17/2023 00248 Manual Specialty Cook 1/> Area 15 Min Each Region Completed 06/17/2023 70812 Therapy Proc, Neuromuscular Reeducation Of Movement Completed 06/17/2023 23876 Therapy Proc 1/> Area 15Min Ea Completed 06/17/2023 72071 Hot/Cold Pack Completed 06/14/2023 63567 Therapy Proc 1/> Area 15Min Ea Completed 06/14/2023 15576 Hot/Cold Pack Completed 06/14/2023 70629 Therapeutic Activities Direc t, Each 15 Minutes Completed 06/14/2023 99159 Manual Specialty Cook 1/> Area 15 Min Each Region Completed 06/14/2023 88726 Therapy Proc, Neuromuscular Reeducation Of Movement Completed 06/12/2023 79358 Manual Specialty Cook 1/> Area 15 Min Each Region Completed 06/12/2023 61168 Therapy Proc, Neuromuscular Reeducation Of Movement Completed 06/12/2023 80196 Therapy Proc 1/> Area 15Min Ea Completed 06/12/2023 51404 Hot/Cold Pack Completed 06/12/2023 03877 Therapeutic Activities Direc t, Each 15 Minutes Completed 06/07/2023 27716 Therapeutic Activities Direc t, Each 15 Minutes Completed 06/07/2023 01708 Manual Specialty Cook 1/> Area 15 Min Each Region Completed 06/07/2023 73925 Therapy Proc, Neuromuscular Reeducation Of Movement Completed 06/07/2023 52738 Therapy Proc 1/> Area 15Min Ea Completed 06/05/2023 15882 Manual Specialty Cook 1/> Area 15 Min Each Region Completed 06/05/2023 79704 Hot/Cold Pack Completed 06/05/2023 21109 Therapy Proc 1/> Area 15Min Ea Completed 06/05/2023 25764 Therapy Proc, Neuromuscular Reeducation Of Movement Completed 06/05/2023 40230 Therapeutic Activities Direc t, Each 15 Minutes Completed 06/03/2023 45863 Therapeutic Activities Direc t, Each 15 Minutes Completed 06/03/2023 61440 Manual Specialty Cook 1/> Area 15 Min Each Region Completed 06/03/2023 68880 Therapy Proc, Neuromuscular Reeducation Of Movement Completed 06/03/2023 12762 Therapy Proc 1/> Area 15Min Ea Completed 06/03/2023 23136 Hot/Cold Pack Completed 05/31/2023 61519 Hot/Cold Pack Completed 05/31/2023 24026 Therapy Proc, Neuromuscular Reeducation Of Movement Completed 05/31/2023 92605 Therapeutic Activities Direc t, Each 15 Minutes Completed 05/31/2023 32502 Manual Specialty Cook 1/> Area 15 Min Each Region Completed 05/29/2023 32647 Therapeutic Activities Direc t, Each 15 Minutes Completed 05/29/2023 85651 Therapeutic Procedure Group Completed 05/29/2023 50380 Manual Specialty Cook 1/> Area 15 Min Each Region Completed 05/29/2023 99837 Therapy Proc, Neuromuscular Reeducation Of Movement Completed 05/29/2023 41173 Hot/Cold Pack Completed 05/27/2023 72868 Therapeutic Activities Direc t, Each 15 Minutes Completed 05/27/2023 57917 Therapeutic Procedure Group Completed 05/27/2023 90243 Manual Specialty Cook 1/> Area 15 Min Each Region Completed 05/27/2023 94574 Therapy Proc, Neuromuscular Reeducation Of Movement Completed 05/27/2023 16559 Hot/Cold Pack Completed 05/24/2023 55061 Therapeutic Activities Direc t, Each 15 Minutes Completed 05/24/2023 18601 Hot/Cold Pack Completed 05/24/2023 14113 Therapy Proc 1/> Area 15Min Ea Completed 05/24/2023 64953 Therapy Proc, Neuromuscular Reeducation Of Movement Completed 05/24/2023 03021 Manual Specialty Cook 1/> Area 15 Min Each Region Completed 05/22/2023 15901 Therapeutic Activities Direc t, Each 15 Minutes Completed 05/22/2023 77787 Manual Specialty Cook 1/> Area 15 Min Each Region Completed 05/22/2023 02727 Therapy Proc, Neuromuscular Reeducation Of Movement Completed 05/22/2023 48453 Therapy Proc 1/> Area 15Min Ea Completed 05/22/2023 39592 Hot/Cold Pack Completed 05/20/2023 13443 Hot/Cold Pack Completed 05/20/2023 76566 Therapy Proc 1/> Area 15Min Ea Completed 05/20/2023 30590 Manual Specialty Cook 1/> Area 15 Min Each Region Completed 05/20/2023 37937 Therapeutic Activities Direc t, Each 15 Minutes Completed 05/20/2023 68624 Therapy Proc, Neuromuscular Reeducation Of Movement Completed 05/17/2023 99805 Therapeutic Activities Direc t, Each 15 Minutes Completed 05/17/2023 13353 Manual Specialty Cook 1/> Area 15 Min Each Region Completed 05/17/2023 06746 Therapy Proc, Neuromuscular Reeducation Of Movement Completed 05/17/2023 95293 Therapy Proc 1/> Area 15Min Ea Completed 05/17/2023 70779 Hot/Cold Pack Completed 05/15/2023 41633 Therapeutic Activities Direc t, Each 15 Minutes Completed 05/15/2023 27018 Manual Specialty Cook 1/> Area 15 Min Each Region Completed 05/15/2023 97636 Therapy Proc, Neuromuscular Reeducation Of Movement Completed 05/15/2023 78326 Therapy Proc 1/> Area 15Min Ea Completed 05/15/2023 11508 Hot/Cold Pack Completed 2023 64941 Therapeutic Activities Direc t, Each 15 Minutes Completed 2023 50082 Hot/Cold Pack Completed 2023 87572 Therapy Proc 1/> Area 15Min Ea Completed 2023 83895 Therapy Proc, Neuromuscular Reeducation Of Movement Completed 2023 11871 Manual Specialty Cook 1/> Area 15 Min Each Region Completed 05/10/2023 71816 Therapeutic Activities Direc t, Each 15 Minutes Completed 05/10/2023 62433 Manual Specialty Cook 1/> Area 15 Min Each Region Completed 05/10/2023 03103 Therapy Proc, Neuromuscular Reeducation Of Movement Completed 05/10/2023 56719 Therapy Proc 1/> Area 15Min Ea Completed 05/10/2023 60905 Hot/Cold Pack Completed 05/08/2023 54347 Therapy Proc, Neuromuscular Reeducation Of Movement Completed 05/08/2023 30442 Hot/Cold Pack Completed 05/08/2023 55497 Therapy Proc 1/> Area 15Min Ea Completed 05/08/2023 77423 Manual Specialty Cook 1/> Area 15 Min Each Region Completed 05/08/2023 47734 Therapeutic Activities Direc t, Each 15 Minutes Completed 05/06/2023 00061 Therapeutic Activities Direc t, Each 15 Minutes Completed 05/06/2023 49165 Manual Specialty Cook 1/> Area 15 Min Each Region Completed 05/06/2023 32576 Therapy Proc, Neuromuscular Reeducation Of Movement Completed 05/06/2023 89460 Therapy Proc 1/> Area 15Min Ea Completed 05/06/2023 56164 Hot/Cold Pack Completed 05/02/2023 88260 Therapeutic Activities Direc t, Each 15 Minutes Completed 05/02/2023 62186 Manual Specialty Cook 1/> Area 15 Min Each Region Completed 05/02/2023 01888 Therapy Proc, Neuromuscular Reeducation Of Movement Completed 05/02/2023 07394 Therapy Proc 1/> Area 15Min Ea Completed 04/30/2023 29761 Therapy Proc, Neuromuscular Reeducation Of Movement Completed 04/30/2023 42927 Hot/Cold Pack Completed 04/30/2023 21484 Therapy Proc 1/> Area 15Min Ea Completed 04/30/2023 93298 Manual Specialty Cook 1/> Area 15 Min Each Region Completed 04/24/2023 69276 Manual Specialty Cook 1/> Area 15 Min Each Region Completed 04/24/2023 09329 Therapy Proc, Neuromuscular Reeducation Of Movement Completed 04/24/2023 80887 Therapy Proc 1/> Area 15Min Ea Completed 04/22/2023 77224 Manual Specialty Cook 1/> Area 15 Min Each Region Completed 04/22/2023 18764 Therapy Proc, Neuromuscular Reeducation Of Movement Completed 04/22/2023 44775 Therapy Proc 1/> Area 15Min Ea Completed 04/22/2023 36765 Hot/Cold Pack Completed 04/19/2023 69128 Hot/Cold Pack Completed 04/19/2023 95945 Therapy Proc 1/> Area 15Min Ea Completed 04/19/2023 28983 Manual Specialty Cook 1/> Area 15 Min Each Region Completed 04/19/2023 62967 Therapy Proc, Neuromuscular Reeducation Of Movement Completed 04/18/2023 90202 Therapy Proc, Neuromuscular Reeducation Of Movement Completed 04/18/2023 80443 Therapy Proc 1/> Area 15Min Ea Completed 04/18/2023 94251 Manual Specialty Cook 1/> Area 15 Min Each Region Completed 04/15/2023 50215 Manual Specialty Cook 1/> Area 15 Min Each Region Completed 04/15/2023 80360 Therapy Proc, Neuromuscular Reeducation Of Movement Completed 04/15/2023 44915 Therapy Proc 1/> Area 15Min Ea Completed 04/15/2023 88882 Hot/Cold Pack Completed 04/12/2023 46720 Manual Specialty Cook 1/> Area 15 Min Each Region Completed 04/12/2023 84121 Therapy Proc, Neuromuscular Reeducation Of Movement Completed 04/12/2023 42080 Therapy Proc 1/> Area 15Min Ea Completed 04/12/2023 63893 Hot/Cold Pack Completed 04/10/2023 29781 Therapy Proc, Neuromuscular Reeducation Of Movement Completed 04/10/2023 78030 Therapy Proc 1/> Area 15Min Ea Completed 04/10/2023 41155 Manual Specialty Cook 1/> Area 15 Min Each Region Completed 04/08/2023 54685 Manual Specialty Cook 1/> Area 15 Min Each Region Completed 04/08/2023 87996 Therapy Proc, Neuromuscular Reeducation Of Movement Completed 04/08/2023 64786 Therapy Proc 1/> Area 15Min Ea Completed 04/05/2023 22103 Manual Specialty Cook 1/> Area 15 Min Each Region Completed 04/05/2023 21649 Therapy Proc, Neuromuscular Reeducation Of Movement Completed 04/05/2023 50660 Therapy Proc 1/> Area 15Min Ea Completed 04/03/2023 57627 Manual Specialty Cook 1/> Area 15 Min Each Region Completed 04/03/2023 98161 Therapy Proc, Neuromuscular Reeducation Of Movement Completed 04/03/2023 10061 Therapy Proc 1/> Area 15Min Ea Completed 04/01/2023 69143 Therapy Proc 1/> Area 15Min Ea Completed 04/01/2023 52375 Therapy Proc, Neuromuscular Reeducation Of Movement Completed 04/01/2023 00950 Manual Specialty Cook 1/> Area 15 Min Each Region Completed 03/29/2023 11560 Manual Specialty Cook 1/> Area 15 Min Each Region Completed 03/29/2023 50124 Therapy Proc, Neuromuscular Reeducation Of Movement Completed 03/29/2023 83761 Therapy Proc 1/> Area 15Min Ea Completed 03/27/2023 33617 Manual Specialty Cook 1/> Area 15 Min Each Region Completed 03/27/2023 71907 Therapy Proc, Neuromuscular Reeducation Of Movement Completed 03/27/2023 78531 Therapy Proc 1/> Area 15Min Ea Completed 03/25/2023 16354 Manual Specialty Cook 1/> Area 15 Min Each Region Completed 03/25/2023 15533 Therapy Proc, Neuromuscular Reeducation Of Movement Completed 03/25/2023 Therapy Proc 1/> Area 15Min Ea Completed 03/22/2023 27032 Manual Specialty Cook 1/> Area 15 Min Each Region Completed 03/22/2023 28242 Therapy Proc, Neuromuscular Reeducation Of Movement Completed 03/22/2023 07576 Therapy Proc 1/> Area 15Min Ea Completed 03/20/2023 41975 Manual Specialty Cook 1/> Area 15 Min Each Region Completed 03/20/2023 55561 Therapy Proc 1/> Area 15Min Ea Completed 03/20/2023 72175 Therapy Proc, Neuromuscular Reeducation Of Movement Completed 03/18/2023 33540 Manual Specialty Cook 1/> Area 15 Min Each Region Completed 03/18/2023 97703 Therapy Proc, Neuromuscular Reeducation Of Movement Completed 03/18/2023 97276 Therapy Proc 1/> Area 15Min Ea Completed 03/15/2023 86945 Manual Specialty Cook 1/> Area 15 Min Each Region Completed 03/15/2023 17176 Therapy Proc, Neuromuscular Reeducation Of Movement Completed 03/15/2023 49816 Therapy Proc 1/> Area 15Min Ea Completed 03/13/2023 55916 Physical Therapy Evaluation Moderate Complexity Completed 03/13/2023 43715 Manual Specialty Cook 1/> Area 15 Min Each Region Completed 03/13/2023 51606 Therapy Proc 1/> Area 15Min Ea Completed 02/18/2023 54987 Venipuncture Routine Complet ed Medical Devices Description No Information Available Encounters Type Date Location Provider Dx Diagnosis Office Visit 02/22/2023 10[facility] Almodov[facility] DO I10 Essential (pr imary) hypertension 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 F41.1 Generalized anxiety disorder M15.0 Primary generalized (osteo)arthritis Assessments Date Code Description Provider 07/10/2023 R26.2 Difficulty in wa lking, not [...] lking, not elsewhere classified Aki Gracia, DPT 06/07/2023 M25.511 Pain in right shoulder [...] wa lking, not elsewhere classified [facility], DPT 03/25/2023 M25.511 Pain in right [...] I10 Essential (primary) hyperten vickie [facility] 02/18/2023 E55.9 Vitamin D deficiency, unspec ified Dawson Almodovar, DO 02/18/2023 E55.9 Vitamin D deficiency, unspec ified [facility] - [place] 02/18/2023 E53.8 Deficiency of ot her specified B group vitamins Dawson Almodovar, DO 02/18/2023 E53.8 Deficiency of ot her specified B group vitamins [facility] - [place] Plan of Treatment Future Appointment(s):* 09/06/2023 10:30 am - Dawson Almodovar DO at [facility] * 08/28/2023 10:30 am - [facility] Functional Status Description No Information Available Mental Status Description No Information Available Referrals Description No Information Available"
--- OUTSIDE RECORDS SUMMARY | 2023-10-11 13:18 | External Medical Summary | Continuity of Care Document ---
Author Name AKI GARCIA DPT Address [address] [facility], [address] [place] [id number] Phone [phone] Organization [facility], Address [address] [place] [address] Phone [phone] Problems Active Problems Provider Date Essential hypertension [...] SIG Qnty Indications Order ing Provider Date [id number] Tablets 2 tablets by mouth every day 30tabs R60.0 Dawson Almodovar DO 10/05/2022 Multi + Vida-3 Adult GummiesChewtabs 1 by mouth every day Dawson Almodovar DO 08/08/2022 Vitamin B ComplexTablets 1 by mouth every day Dawson Almodovar DO 08/08/2022 Losartan Potassium/Hydrochlorothi [id number] Tablets 1 by mouth every day 90tabs I10 Dawson Almodovar, DO 03/21/2020 Juice Plus Fibre` Dawson Almodovar, DO 02/19/2018 Aspirin Adult Low Lffc36tc Tablets DR 1 by mouth every day Unknown Citalopram Rippjttgblxc74fi Tablets 1 by mouth every day 90tabs F41.1 Dawson Almodovar, DO Vitamin D3 Maximum [id number] (5000 Ut) Capsules 1 by mouth once daily Unknown Immunizations CPT Code Status Date Vaccine Lot # [id number] Given 07/14/2009 Pneumococcal Vaccine/Pneu movax 23 08189 Refused 10/19/2022 Shingrix 69131 Refused 08/08/2022 Pneumococcal Conjugate-Pr evnar 20 34832 Refused 08/08/2022 Influenza Vac, Split, Preservative Free High Dose Age 65 & > 55952 Refused 04/20/2022 Moderna Sars-Co v-2 (Cov-19) vacc,100 mcg/ 0.5 mL 12Y+EMR Doc Only 36748 Refused 10/16/2021 Influenza Virus Vaccine, Quadrivalent (Cciiv4), Derived From Cell 97944 Refused 10/16/2021 Shingrix 36826 Refused 10/16/2021 Pneumococcal Conjugate-Pr evnar 13 90528 Refused 03/20/2021 Pfizer Sars-Cov -2 (Cov-19) vacc 30mcg/0.3ML 12Y+ EMR Doc Only 14524 Refused 04/17/2019 Influenza Vacci ne, Inactivated, Subunit, Adjuvanted, For Intrmusc 55655 Refused 01/29/2019 Tdap (Tetanus, diphtheria & acel. pertussis) Adacel or Boostrix 75886 Refused 01/29/2019 Pneumococcal Conjugate-Pr evnar 13 Vital [...] H/L Range N ote CBC W/Diff 02/18/2023 [facility] [address] [place] [address] [phone] WBC 7.6 10^3/M3 3.1-9.2 RBC 4.19 10^6/M3 3.70-5.50 HGB 12.2 GR/DL 11.5-16.1 HCT 36.6 % 34.5-47.8 MCV 87.5 CUMICR 82.6-95.8 MCH 29.1 PICOGR 27.9-32.9 MCHC 33.3 % 32.6-35.4 RDW 14.9 % High 11.4-14.6 PLT 225 10^3/M3 140-350 MPV 8.8 CUMICR 7.0-10.6 %Neut 57.1 % 40.0-75.0 %Lymph 29.4 % 17.0-45.0 %Madison 8.6 % 1.0-11.0 %Eos 3.8 % 0.0-6.0 %Baso 1.1 % 0.0-2.0 #Neut 4.4 10^3/M3 1.5-8.0 #Lymph 2.2 10^3/M3 0.8-3.2 #Madison 0.7 10^3/M3 0.0-0.8 #Eos 0.3 10^3/m3 0.0-0.4 #Baso 0.1 10^3/m3 0.0-0.2 Comp. Met 02/18/2023 [facility] [address] [place], [place] [id number] [phone] Glucose 96 mg/dL 70-110 BUN 18 mg/dL [...] 2.0-3.4 GFR 72 ML/MIN/1.73SQM >60 Lipid 02/18/2023 [facility] [address] [place] [address] [phone] Cholesterol 164 mg/dL 0-200 1 Triglyceride 79 mg/dL 0-150 2 HDLD 62 mg/dL See Comment 3 Measured LDL 99 mg/dL 0-130 4 Calc VLDL 15.8 mg/dL See Comment 5 Chol/HDL 2.6 RATIO See Comment 6 Non-HDL 102 mg/dL See Comment 7 Laboratory test finding 02/18/2023 [facility] [address] [place] [address] [phone] Vitd-25Oh 77 ng/mL 30-100 VB12 411 pg/mL [...] Target Procedures Date Code Description Status 07/15/2023 08902 Manual Market Survey Representative 1/> Area 15 Min Each Region Completed 07/15/2023 71368 Therapy Proc, Neuromuscular Reeducation Of Movement Completed 07/15/2023 26141 Hot/Cold Pack Completed 07/15/2023 15480 Therapeutic Activities Direc t, Each 15 Minutes Completed 07/12/2023 75062 Therapeutic Activities Direc t, Each 15 Minutes Completed 07/12/2023 83835 Manual Market Survey Representative 1/> Area 15 Min Each Region Completed 07/12/2023 78149 Therapy Proc, Neuromuscular Reeducation Of Movement Completed 07/12/2023 38089 Therapy Proc 1/> Area 15Min Ea Completed 07/12/2023 76010 Hot/Cold Pack Completed 07/10/2023 28692 Hot/Cold Pack Completed 07/10/2023 21076 Therapy Proc 1/> Area 15Min Ea Completed 07/10/2023 49523 Therapy Proc, Neuromuscular Reeducation Of Movement Completed 07/10/2023 72318 Manual Market Survey Representative 1/> Area 15 Min Each Region Completed 07/10/2023 34209 Therapeutic Activities Direc t, Each 15 Minutes Completed 07/08/2023 70857 Therapeutic Activities Direc t, Each 15 Minutes Completed 07/08/2023 48710 Manual Market Survey Representative 1/> Area 15 Min Each Region Completed 07/08/2023 96796 Therapy Proc, Neuromuscular Reeducation Of Movement Completed 07/08/2023 58370 Therapy Proc 1/> Area 15Min Ea Completed 07/08/2023 70137 Hot/Cold Pack Completed 07/05/2023 32168 Therapeutic Activities Direc t, Each 15 Minutes Completed 07/05/2023 88685 Manual Market Survey Representative 1/> Area 15 Min Each Region Completed 07/05/2023 17344 Therapy Proc, Neuromuscular Reeducation Of Movement Completed 07/05/2023 25965 Therapy Proc 1/> Area 15Min Ea Completed 07/05/2023 79372 Hot/Cold Pack Completed 07/03/2023 71265 Manual Market Survey Representative 1/> Area 15 Min Each Region Completed 07/03/2023 61174 Hot/Cold Pack Completed 07/03/2023 97615 Therapy Proc 1/> Area 15Min Ea Completed 07/03/2023 46828 Therapy Proc, Neuromuscular Reeducation Of Movement Completed 07/03/2023 23130 Therapeutic Activities Direc t, Each 15 Minutes Completed 07/01/2023 14782 Manual Market Survey Representative 1/> Area 15 Min Each Region Completed 07/01/2023 36245 Therapy Proc, Neuromuscular Reeducation Of Movement Completed 07/01/2023 22386 Therapy Proc 1/> Area 15Min Ea Completed 07/01/2023 72104 Hot/Cold Pack Completed 07/01/2023 11673 Therapeutic Activities Direc t, Each 15 Minutes Completed 06/28/2023 61303 Therapeutic Activities Direc t, Each 15 Minutes Completed 06/28/2023 93923 Manual Market Survey Representative 1/> Area 15 Min Each Region Completed 06/28/2023 32535 Therapy Proc, Neuromuscular Reeducation Of Movement Completed 06/28/2023 19517 Therapy Proc 1/> Area 15Min Ea Completed 06/24/2023 16634 Manual Market Survey Representative 1/> Area 15 Min Each Region Completed 06/24/2023 04639 Hot/Cold Pack Completed 06/24/2023 27974 Therapy Proc 1/> Area 15Min Ea Completed 06/24/2023 81256 Therapy Proc, Neuromuscular Reeducation Of Movement Completed 06/24/2023 76152 Therapeutic Activities Direc t, Each 15 Minutes Completed 06/21/2023 80945 Therapeutic Activities Direc t, Each 15 Minutes Completed 06/21/2023 22513 Manual Market Survey Representative 1/> Area 15 Min Each Region Completed 06/21/2023 13365 Therapy Proc, Neuromuscular Reeducation Of Movement Completed 06/21/2023 59365 Therapy Proc 1/> Area 15Min Ea Completed 06/21/2023 41672 Hot/Cold Pack Completed 06/19/2023 14500 Hot/Cold Pack Completed 06/19/2023 09511 Therapy Proc 1/> Area 15Min Ea Completed 06/19/2023 96666 Therapy Proc, Neuromuscular Reeducation Of Movement Completed 06/19/2023 71355 Therapeutic Activities Direc t, Each 15 Minutes Completed 06/19/2023 71908 Manual Market Survey Representative 1/> Area 15 Min Each Region Completed 06/17/2023 52257 Therapeutic Activities Direc t, Each 15 Minutes Completed 06/17/2023 33021 Manual Market Survey Representative 1/> Area 15 Min Each Region Completed 06/17/2023 65643 Therapy Proc, Neuromuscular Reeducation Of Movement Completed 06/17/2023 91494 Therapy Proc 1/> Area 15Min Ea Completed 06/17/2023 66569 Hot/Cold Pack Completed 06/14/2023 00637 Therapeutic Activities Direc t, Each 15 Minutes Completed 06/14/2023 02622 Manual Market Survey Representative 1/> Area 15 Min Each Region Completed 06/14/2023 23150 Therapy Proc, Neuromuscular Reeducation Of Movement Completed 06/14/2023 21887 Therapy Proc 1/> Area 15Min Ea Completed 06/14/2023 03537 Hot/Cold Pack Completed 06/12/2023 89055 Therapy Proc 1/> Area 15Min Ea Completed 06/12/2023 40363 Hot/Cold Pack Completed 06/12/2023 17625 Therapy Proc, Neuromuscular Reeducation Of Movement Completed 06/12/2023 90672 Manual Market Survey Representative 1/> Area 15 Min Each Region Completed 06/12/2023 71313 Therapeutic Activities Direc t, Each 15 Minutes Completed 06/07/2023 04345 Therapeutic Activities Direc t, Each 15 Minutes Completed 06/07/2023 09766 Manual Market Survey Representative 1/> Area 15 Min Each Region Completed 06/07/2023 31893 Therapy Proc, Neuromuscular Reeducation Of Movement Completed 06/07/2023 72970 Therapy Proc 1/> Area 15Min Ea Completed 06/05/2023 90408 Therapeutic Activities Direc t, Each 15 Minutes Completed 06/05/2023 50127 Manual Market Survey Representative 1/> Area 15 Min Each Region Completed 06/05/2023 64044 Therapy Proc, Neuromuscular Reeducation Of Movement Completed 06/05/2023 31225 Therapy Proc 1/> Area 15Min Ea Completed 06/05/2023 63084 Hot/Cold Pack Completed 06/03/2023 74826 Therapeutic Activities Direc t, Each 15 Minutes Completed 06/03/2023 56601 Hot/Cold Pack Completed 06/03/2023 09135 Therapy Proc 1/> Area 15Min Ea Completed 06/03/2023 31753 Manual Market Survey Representative 1/> Area 15 Min Each Region Completed 06/03/2023 13553 Therapy Proc, Neuromuscular Reeducation Of Movement Completed 05/31/2023 19028 Therapeutic Activities Direc t, Each 15 Minutes Completed 05/31/2023 07417 Manual Market Survey Representative 1/> Area 15 Min Each Region Completed 05/31/2023 83386 Therapy Proc, Neuromuscular Reeducation Of Movement Completed 05/31/2023 18951 Hot/Cold Pack Completed 05/29/2023 94530 Therapeutic Activities Direc t, Each 15 Minutes Completed 05/29/2023 42519 Therapeutic Procedure Group Completed 05/29/2023 14500 Manual Market Survey Representative 1/> Area 15 Min Each Region Completed 05/29/2023 21873 Therapy Proc, Neuromuscular Reeducation Of Movement Completed 05/29/2023 57641 Hot/Cold Pack Completed 05/27/2023 23372 Therapeutic Activities Direc t, Each 15 Minutes Completed 05/27/2023 65897 Hot/Cold Pack Completed 05/27/2023 15265 Therapy Proc, Neuromuscular Reeducation Of Movement Completed 05/27/2023 67943 Manual Market Survey Representative 1/> Area 15 Min Each Region Completed 05/27/2023 72713 Therapeutic Procedure Group Completed 05/24/2023 52109 Therapeutic Activities Direc t, Each 15 Minutes Completed 05/24/2023 06155 Manual Market Survey Representative 1/> Area 15 Min Each Region Completed 05/24/2023 83057 Therapy Proc, Neuromuscular Reeducation Of Movement Completed 05/24/2023 99645 Therapy Proc 1/> Area 15Min Ea Completed 05/24/2023 28844 Hot/Cold Pack Completed 05/22/2023 30424 Therapy Proc 1/> Area 15Min Ea Completed 05/22/2023 29520 Hot/Cold Pack Completed 05/22/2023 60899 Manual Market Survey Representative 1/> Area 15 Min Each Region Completed 05/22/2023 04706 Therapy Proc, Neuromuscular Reeducation Of Movement Completed 05/22/2023 49838 Therapeutic Activities Direc t, Each 15 Minutes Completed 05/20/2023 50565 Therapeutic Activities Direc t, Each 15 Minutes Completed 05/20/2023 61800 Manual Market Survey Representative 1/> Area 15 Min Each Region Completed 05/20/2023 24525 Therapy Proc, Neuromuscular Reeducation Of Movement Completed 05/20/2023 97012 Therapy Proc 1/> Area 15Min Ea Completed 05/20/2023 88716 Hot/Cold Pack Completed 05/17/2023 71201 Therapeutic Activities Direc t, Each 15 Minutes Completed 05/17/2023 48233 Manual Market Survey Representative 1/> Area 15 Min Each Region Completed 05/17/2023 08513 Therapy Proc, Neuromuscular Reeducation Of Movement Completed 05/17/2023 43879 Therapy Proc 1/> Area 15Min Ea Completed 05/17/2023 28523 Hot/Cold Pack Completed 05/15/2023 66986 Therapy Proc 1/> Area 15Min Ea Completed 05/15/2023 88455 Hot/Cold Pack Completed 05/15/2023 91438 Therapy Proc, Neuromuscular Reeducation Of Movement Completed 05/15/2023 91602 Manual Market Survey Representative 1/> Area 15 Min Each Region Completed 05/15/2023 46888 Therapeutic Activities Direc t, Each 15 Minutes Completed 2023 70653 Therapeutic Activities Direc t, Each 15 Minutes Completed 2023 85568 Manual Market Survey Representative 1/> Area 15 Min Each Region Completed 2023 73946 Therapy Proc, Neuromuscular Reeducation Of Movement Completed 2023 85431 Therapy Proc 1/> Area 15Min Ea Completed 2023 71435 Hot/Cold Pack Completed 05/10/2023 52904 Therapeutic Activities Direc t, Each 15 Minutes Completed 05/10/2023 06701 Manual Market Survey Representative 1/> Area 15 Min Each Region Completed 05/10/2023 98553 Therapy Proc, Neuromuscular Reeducation Of Movement Completed 05/10/2023 24335 Therapy Proc 1/> Area 15Min Ea Completed 05/10/2023 73396 Hot/Cold Pack Completed 05/08/2023 03462 Therapeutic Activities Direc t, Each 15 Minutes Completed 05/08/2023 20353 Hot/Cold Pack Completed 05/08/2023 72131 Therapy Proc 1/> Area 15Min Ea Completed 05/08/2023 80646 Manual Market Survey Representative 1/> Area 15 Min Each Region Completed 05/08/2023 72133 Therapy Proc, Neuromuscular Reeducation Of Movement Completed 05/06/2023 37229 Therapeutic Activities Direc t, Each 15 Minutes Completed 05/06/2023 98339 Manual Market Survey Representative 1/> Area 15 Min Each Region Completed 05/06/2023 13643 Therapy Proc, Neuromuscular Reeducation Of Movement Completed 05/06/2023 38977 Therapy Proc 1/> Area 15Min Ea Completed 05/06/2023 32376 Hot/Cold Pack Completed 05/02/2023 47909 Therapeutic Activities Direc t, Each 15 Minutes Completed 05/02/2023 40278 Manual Market Survey Representative 1/> Area 15 Min Each Region Completed 05/02/2023 84193 Therapy Proc, Neuromuscular Reeducation Of Movement Completed 05/02/2023 22453 Therapy Proc 1/> Area 15Min Ea Completed 04/30/2023 76858 Therapy Proc, Neuromuscular Reeducation Of Movement Completed 04/30/2023 00124 Hot/Cold Pack Completed 04/30/2023 48865 Therapy Proc 1/> Area 15Min Ea Completed 04/30/2023 09137 Manual Market Survey Representative 1/> Area 15 Min Each Region Completed 04/24/2023 09425 Manual Market Survey Representative 1/> Area 15 Min Each Region Completed 04/24/2023 67358 Therapy Proc, Neuromuscular Reeducation Of Movement Completed 04/24/2023 31569 Therapy Proc 1/> Area 15Min Ea Completed 04/22/2023 66550 Manual Market Survey Representative 1/> Area 15 Min Each Region Completed 04/22/2023 01254 Therapy Proc, Neuromuscular Reeducation Of Movement Completed 04/22/2023 50377 Therapy Proc 1/> Area 15Min Ea Completed 04/22/2023 46735 Hot/Cold Pack Completed 04/19/2023 24992 Hot/Cold Pack Completed 04/19/2023 94261 Therapy Proc, Neuromuscular Reeducation Of Movement Completed 04/19/2023 55221 Manual Market Survey Representative 1/> Area 15 Min Each Region Completed 04/19/2023 45781 Therapy Proc 1/> Area 15Min Ea Completed 04/18/2023 90258 Therapy Proc, Neuromuscular Reeducation Of Movement Completed 04/18/2023 61689 Therapy Proc 1/> Area 15Min Ea Completed 04/18/2023 13693 Manual Market Survey Representative 1/> Area 15 Min Each Region Completed 04/15/2023 61674 Manual Market Survey Representative 1/> Area 15 Min Each Region Completed 04/15/2023 47226 Therapy Proc, Neuromuscular Reeducation Of Movement Completed 04/15/2023 13272 Therapy Proc 1/> Area 15Min Ea Completed 04/15/2023 83080 Hot/Cold Pack Completed 04/12/2023 26824 Manual Market Survey Representative 1/> Area 15 Min Each Region Completed 04/12/2023 61005 Therapy Proc, Neuromuscular Reeducation Of Movement Completed 04/12/2023 09949 Therapy Proc 1/> Area 15Min Ea Completed 04/12/2023 55204 Hot/Cold Pack Completed 04/10/2023 07600 Therapy Proc, Neuromuscular Reeducation Of Movement Completed 04/10/2023 80845 Therapy Proc 1/> Area 15Min Ea Completed 04/10/2023 70548 Manual Market Survey Representative 1/> Area 15 Min Each Region Completed 04/08/2023 23559 Manual Market Survey Representative 1/> Area 15 Min Each Region Completed 04/08/2023 71031 Therapy Proc, Neuromuscular Reeducation Of Movement Completed 04/08/2023 92097 Therapy Proc 1/> Area 15Min Ea Completed 04/05/2023 73737 Manual Market Survey Representative 1/> Area 15 Min Each Region Completed 04/05/2023 69945 Therapy Proc, Neuromuscular Reeducation Of Movement Completed 04/05/2023 69067 Therapy Proc 1/> Area 15Min Ea Completed 04/03/2023 62072 Manual Market Survey Representative 1/> Area 15 Min Each Region Completed 04/03/2023 84448 Therapy Proc, Neuromuscular Reeducation Of Movement Completed 04/03/2023 56500 Therapy Proc 1/> Area 15Min Ea Completed 04/01/2023 67690 Therapy Proc 1/> Area 15Min Ea Completed 04/01/2023 93249 Therapy Proc, Neuromuscular Reeducation Of Movement Completed 04/01/2023 07468 Manual Market Survey Representative 1/> Area 15 Min Each Region Completed 03/29/2023 42773 Manual Market Survey Representative 1/> Area 15 Min Each Region Completed 03/29/2023 27591 Therapy Proc, Neuromuscular Reeducation Of Movement Completed 03/29/2023 50398 Therapy Proc 1/> Area 15Min Ea Completed 03/27/2023 40051 Manual Market Survey Representative 1/> Area 15 Min Each Region Completed 03/27/2023 89990 Therapy Proc, Neuromuscular Reeducation Of Movement Completed 03/27/2023 23972 Therapy Proc 1/> Area 15Min Ea Completed 03/25/2023 40373 Manual Market Survey Representative 1/> Area 15 Min Each Region Completed 03/25/2023 98449 Therapy Proc, Neuromuscular Reeducation Of Movement Completed 03/25/2023 53882 Therapy Proc 1/> Area 15Min Ea Completed 03/22/2023 88128 Manual Market Survey Representative 1/> Area 15 Min Each Region Completed 03/22/2023 82831 Therapy Proc, Neuromuscular Reeducation Of Movement Completed 03/22/2023 11208 Therapy Proc 1/> Area 15Min Ea Completed 03/20/2023 37550 Manual Market Survey Representative 1/> Area 15 Min Each Region Completed 03/20/2023 48234 Therapy Proc 1/> Area 15Min Ea Completed 03/20/2023 31528 Therapy Proc, Neuromuscular Reeducation Of Movement Completed 03/18/2023 69398 Manual Market Survey Representative 1/> Area 15 Min Each Region Completed 03/18/2023 43366 Therapy Proc, Neuromuscular Reeducation Of Movement Completed 03/18/2023 39475 Therapy Proc 1/> Area 15Min Ea Completed 03/15/2023 12488 Manual Market Survey Representative 1/> Area 15 Min Each Region Completed 03/15/2023 92164 Therapy Proc, Neuromuscular Reeducation Of Movement Completed 03/15/2023 77997 Therapy Proc 1/> Area 15Min Ea Completed 03/13/2023 90208 Physical Therapy Evaluation Moderate Complexity Completed 03/13/2023 13076 Manual Market Survey Representative 1/> Area 15 Min Each Region Completed 03/13/2023 90860 Therapy Proc 1/> Area 15Min Ea Completed 02/18/2023 07933 Venipuncture Routine Complet ed Medical Devices Description No Information Available Encounters Type Date Location Provider Dx Diagnosis Office Visit 02/22/2023 10:30a [place] Dawson Almodovar, DO I10 Essential (pr imary) [...] DPT 04/05/2023 M25.511 Pain in right shoulder zOiel Garcia, DPT 04/03/2023 R26.2 Difficulty in wa [...] Difficulty in wa lking, not elsewhere classified [employer] Jose, DPT 03/13/2023 M25.511 Pain in right [...] I10 Essential (primary) [facility] [place] 02/18/2023 E55.9 Vitamin D deficiency, unspec ified Dawson Almodovar, DO 02/18/2023 E55.9 Vitamin D deficiency, unspec ified Lab - [place] 02/18/2023 E53.8 Deficiency of ot her specified B group vitamins Dawson Almodovar, 02/18/2023 E53.8 Deficiency of ot her specified B group vitamins Lab - [place] Plan of Treatment Future Appointment(s):* 09/06/2023 10:30 am - Dawson Almodovar DO at [place] * 08/28/2023 10:30 am - [facility] [place] Functional Status Description No Information Available Mental Status Description No Information Available Referrals Description No Information Available"
--- OUTSIDE RECORDS SUMMARY | 2023-10-11 13:18 | External Medical Summary ---
"Continuity of Care Document (CCD) Created on: July 12, 2023 Antonio Catrina Grant External Reference #: [id number] : [id number] Sex: Female Author Name AKI GARCIA DPT Address [address] [facility], [address] [place] [id number] Phone [phone] Organization [facility], Address [address] [place] [address] Phone [phone] Problems Active Problems Provider Date Essential hypertension [...] SIG Qnty Indications Order ing Provider Date [id number] Tablets 2 tablets by mouth every day 30tabs R60.0 Dawson Almodovar DO 10/05/2022 Multi + [place]-3 Adult GummiesChewtabs 1 by mouth every day Dawson Almodovar DO 08/08/2022 Vitamin B ComplexTablets 1 by mouth every day Dawson Almodovar DO 08/08/2022 Losartan Potassium/Hydrochlorothi [id number] Tablets 1 by mouth every day 90tabs I10 Dawson Almodovar, DO 03/21/2020 Juice Plus Fibre` Dawson Almodovar, DO 02/19/2018 Aspirin Adult Low Wlbo81kd Tablets DR 1 by mouth every day Unknown Citalopram Wzpzbwfuvhxm74wd Tablets 1 by mouth every day 90tabs F41.1 Dawson Almodovar, DO Vitamin D3 Maximum [id number] (5000 Ut) Capsules 1 by mouth once daily Unknown Immunizations CPT Code Status Date Vaccine Lot # [id number] Given 07/14/2009 Pneumococcal Vaccine/Pneu movax 23 72329 Refused 10/19/2022 Shingrix 90641 Refused 08/08/2022 Pneumococcal Conjugate-Pr evnar 20 09610 Refused 08/08/2022 Influenza Vac, Split, Preservative Free High Dose Age 65 & > 84[address] Refused 04/20/2022 Moderna Sars-Co v-2 (Cov-19) vacc,100 mcg/ 0.5 mL 12Y+EMR Doc Only 31709 Refused 10/16/2021 Influenza Virus Vaccine, Quadrivalent (Cciiv4), Derived From Cell 50007 Refused 10/16/2021 Shingrix 92827 Refused 10/16/2021 Pneumococcal Conjugate-Pr evnar 13 86738 Refused 03/20/2021 Pfizer Sars-Cov -2 (Cov-19) vacc 30mcg/0.3ML 12Y+ EMR Doc Only 35842 Refused 04/17/2019 Influenza Vacci ne, Inactivated, Subunit, Adjuvanted, For Intrmusc 05721 Refused 01/29/2019 Tdap (Tetanus, diphtheria & acel. pertussis) Adacel or Boostrix 00071 Refused 01/29/2019 Pneumococcal Conjugate-Pr evnar 13 Vital [...] H/L Range N ote CBC W/Diff 02/18/2023 [facility] [address] [place] [address] [phone] WBC 7.6 10^3/M3 3.1-9.2 RBC 4.19 10^6/M3 3.70-5.50 HGB 12.2 GR/DL 11.5-16.1 HCT 36.6 % 34.5-47.8 MCV 87.5 CUMICR 82.6-95.8 MCH 29.1 PICOGR 27.9-32.9 MCHC 33.3 % 32.6-35.4 RDW 14.9 % High 11.4-14.6 PLT 225 10^3/M3 140-350 MPV 8.8 CUMICR 7.0-10.6 %Neut 57.1 % 40.0-75.0 %Lymph 29.4 % 17.0-45.0 %[place] 8.6 % 1.0-11.0 %Eos 3.8 % 0.0-6.0 %Bas[place] 1.1 % 0.0-2.0 #Neut 4.4 10^3/M3 1.5-8.0 #Lymph 2.2 10^3/M3 0.8-3.2 #[place] 0.7 10^3/M3 0.0-0.8 #Eos 0.3 10^3/m3 0.0-0.4 #Baso 0.1 10^3/m3 0.0-0.2 Comp. Met 02/18/2023 [facility] [address] [place], [place] [id number] [phone] Glucose 96 mg/dL 70-110 BUN 18 mg/dL [...] 2.0-3.4 GFR 72 ML/MIN/1.73SQM >60 Lipid 02/18/2023 [facility] [address] [place] [address] [phone] Cholesterol 164 mg/dL 0-200 1 Triglyceride 79 mg/dL 0-150 2 HDLD 62 mg/dL See Comment 3 Measured LDL 99 mg/dL 0-130 4 Calc VLDL 15.8 mg/dL See Comment 5 Chol/HDL 2.6 RATIO See Comment 6 Non-HDL 102 mg/dL See Comment 7 Laboratory test finding 02/18/2023 [facility] [address] [place] [address] [phone] Vitd-25Oh 77 ng/mL 30-100 VB12 411 pg/mL [...] LDL Target Procedures Date Code Description Status 07/05/2023 46508 Manual Product Controller 1/> Area 15 Min Each Region Completed 07/05/2023 85934 Therapy Proc, Neuromuscular Reeducation Of Movement Completed 07/05/2023 83223 Therapy Proc 1/> Area 15Min Ea Completed 07/05/2023 91146 Hot/Cold Pack Completed 07/05/2023 53296 Therapeutic Activities Direc t, Each 15 Minutes Completed 07/03/2023 40816 Therapeutic Activities Direc t, Each 15 Minutes Completed 07/03/2023 81467 Manual Product Controller 1/> Area 15 Min Each Region Completed 07/03/2023 12184 Therapy Proc, Neuromuscular Reeducation Of Movement Completed 07/03/2023 78607 Therapy Proc 1/> Area 15Min Ea Completed 07/03/2023 38165 Hot/Cold Pack Completed 07/01/2023 55190 Therapeutic Activities Direc t, Each 15 Minutes Completed 07/01/2023 45578 Hot/Cold Pack Completed 07/01/2023 31709 Therapy Proc 1/> Area 15Min Ea Completed 07/01/2023 47873 Therapy Proc, Neuromuscular Reeducation Of Movement Completed 07/01/2023 19538 Manual Product Controller 1/> Area 15 Min Each Region Completed 06/28/2023 14428 Therapeutic Activities Direc t, Each 15 Minutes Completed 06/28/2023 68635 Manual Product Controller 1/> Area 15 Min Each Region Completed 06/28/2023 12652 Therapy Proc, Neuromuscular Reeducation Of Movement Completed 06/28/2023 18443 Therapy Proc 1/> Area 15Min Ea Completed 06/24/2023 36321 Hot/Cold Pack Completed 06/24/2023 38803 Therapy Proc 1/> Area 15Min Ea Completed 06/24/2023 95658 Manual Product Controller 1/> Area 15 Min Each Region Completed 06/24/2023 33238 Therapeutic Activities Direc t, Each 15 Minutes Completed 06/24/2023 10237 Therapy Proc, Neuromuscular Reeducation Of Movement Completed 06/21/2023 25430 Therapeutic Activities Direc t, Each 15 Minutes Completed 06/21/2023 31950 Manual Product Controller 1/> Area 15 Min Each Region Completed 06/21/2023 14426 Therapy Proc, Neuromuscular Reeducation Of Movement Completed 06/21/2023 49732 Therapy Proc 1/> Area 15Min Ea Completed 06/21/2023 11843 Hot/Cold Pack Completed 06/19/2023 80492 Hot/Cold Pack Completed 06/19/2023 69994 Therapy Proc 1/> Area 15Min Ea Completed 06/19/2023 86194 Therapy Proc, Neuromuscular Reeducation Of Movement Completed 06/19/2023 49788 Manual Product Controller 1/> Area 15 Min Each Region Completed 06/19/2023 91683 Therapeutic Activities Direc t, Each 15 Minutes Completed 06/17/2023 60613 Therapeutic Activities Direc t, Each 15 Minutes Completed 06/17/2023 90422 Manual Product Controller 1/> Area 15 Min Each Region Completed 06/17/2023 66012 Therapy Proc, Neuromuscular Reeducation Of Movement Completed 06/17/2023 31508 Therapy Proc 1/> Area 15Min Ea Completed 06/17/2023 81604 Hot/Cold Pack Completed 06/14/2023 67921 Therapeutic Activities Direc t, Each 15 Minutes Completed 06/14/2023 63046 Manual Product Controller 1/> Area 15 Min Each Region Completed 06/14/2023 68473 Therapy Proc, Neuromuscular Reeducation Of Movement Completed 06/14/2023 30565 Therapy Proc 1/> Area 15Min Ea Completed 06/14/2023 17088 Hot/Cold Pack Completed 06/12/2023 07457 Therapy Proc 1/> Area 15Min Ea Completed 06/12/2023 57149 Hot/Cold Pack Completed 06/12/2023 01924 Therapy Proc, Neuromuscular Reeducation Of Movement Completed 06/12/2023 99469 Therapeutic Activities Direc t, Each 15 Minutes Completed 06/12/2023 01344 Manual Product Controller 1/> Area 15 Min Each Region Completed 06/07/2023 00905 Therapeutic Activities Direc t, Each 15 Minutes Completed 06/07/2023 84041 Therapy Proc 1/> Area 15Min Ea Completed 06/07/2023 48669 Manual Product Controller 1/> Area 15 Min Each Region Completed 06/07/2023 16017 Therapy Proc, Neuromuscular Reeducation Of Movement Completed 06/05/2023 75573 Therapeutic Activities Direc t, Each 15 Minutes Completed 06/05/2023 59080 Manual Product Controller 1/> Area 15 Min Each Region Completed 06/05/2023 15349 Therapy Proc, Neuromuscular Reeducation Of Movement Completed 06/05/2023 92727 Therapy Proc 1/> Area 15Min Ea Completed 06/05/2023 76255 Hot/Cold Pack Completed 06/03/2023 80948 Therapy Proc, Neuromuscular Reeducation Of Movement Completed 06/03/2023 60266 Hot/Cold Pack Completed 06/03/2023 72834 Therapy Proc 1/> Area 15Min Ea Completed 06/03/2023 28322 Manual Product Controller 1/> Area 15 Min Each Region Completed 06/03/2023 66108 Therapeutic Activities Direc t, Each 15 Minutes Completed 05/31/2023 85047 Therapeutic Activities Direc t, Each 15 Minutes Completed 05/31/2023 86268 Manual Product Controller 1/> Area 15 Min Each Region Completed 05/31/2023 61648 Therapy Proc, Neuromuscular Reeducation Of Movement Completed 05/31/2023 83115 Hot/Cold Pack Completed 05/29/2023 05119 Hot/Cold Pack Completed 05/29/2023 39010 Therapy Proc, Neuromuscular Reeducation Of Movement Completed 05/29/2023 76467 Therapeutic Procedure Group Completed 05/29/2023 42628 Therapeutic Activities Direc t, Each 15 Minutes Completed 05/29/2023 58331 Manual Product Controller 1/> Area 15 Min Each Region Completed 05/27/2023 67057 Therapeutic Activities Direc t, Each 15 Minutes Completed 05/27/2023 25987 Therapeutic Procedure Group Completed 05/27/2023 37708 Manual Product Controller 1/> Area 15 Min Each Region Completed 05/27/2023 94992 Therapy Proc, Neuromuscular Reeducation Of Movement Completed 05/27/2023 91812 Hot/Cold Pack Completed 05/24/2023 44248 Hot/Cold Pack Completed 05/24/2023 44407 Therapy Proc 1/> Area 15Min Ea Completed 05/24/2023 97566 Therapy Proc, Neuromuscular Reeducation Of Movement Completed 05/24/2023 67519 Manual Product Controller 1/> Area 15 Min Each Region Completed 05/24/2023 58802 Therapeutic Activities Direc t, Each 15 Minutes Completed 05/22/2023 35534 Therapeutic Activities Direc t, Each 15 Minutes Completed 05/22/2023 34675 Manual Product Controller 1/> Area 15 Min Each Region Completed 05/22/2023 27554 Therapy Proc, Neuromuscular Reeducation Of Movement Completed 05/22/2023 81123 Therapy Proc 1/> Area 15Min Ea Completed 05/22/2023 10265 Hot/Cold Pack Completed 05/20/2023 46123 Therapeutic Activities Direc t, Each 15 Minutes Completed 05/20/2023 07491 Manual Product Controller 1/> Area 15 Min Each Region Completed 05/20/2023 59390 Therapy Proc, Neuromuscular Reeducation Of Movement Completed 05/20/2023 34802 Therapy Proc 1/> Area 15Min Ea Completed 05/20/2023 05078 Hot/Cold Pack Completed 05/17/2023 35340 Therapy Proc 1/> Area 15Min Ea Completed 05/17/2023 63412 Hot/Cold Pack Completed 05/17/2023 91348 Manual Product Controller 1/> Area 15 Min Each Region Completed 05/17/2023 21123 Therapy Proc, Neuromuscular Reeducation Of Movement Completed 05/17/2023 46468 Therapeutic Activities Direc t, Each 15 Minutes Completed 05/15/2023 85997 Therapeutic Activities Direc t, Each 15 Minutes Completed 05/15/2023 04555 Hot/Cold Pack Completed 05/15/2023 07320 Therapy Proc 1/> Area 15Min Ea Completed 05/15/2023 34970 Manual Product Controller 1/> Area 15 Min Each Region Completed 05/15/2023 45966 Therapy Proc, Neuromuscular Reeducation Of Movement Completed 2023 24825 Therapeutic Activities Direc t, Each 15 Minutes Completed 2023 16936 Manual Product Controller 1/> Area 15 Min Each Region Completed 2023 08652 Therapy Proc, Neuromuscular Reeducation Of Movement Completed 2023 06991 Therapy Proc 1/> Area 15Min Ea Completed 2023 40153 Hot/Cold Pack Completed 05/10/2023 19392 Therapy Proc 1/> Area 15Min Ea Completed 05/10/2023 13282 Hot/Cold Pack Completed 05/10/2023 69355 Therapy Proc, Neuromuscular Reeducation Of Movement Completed 05/10/2023 66691 Manual Product Controller 1/> Area 15 Min Each Region Completed 05/10/2023 82918 Therapeutic Activities Direc t, Each 15 Minutes Completed 05/08/2023 28245 Therapeutic Activities Direc t, Each 15 Minutes Completed 05/08/2023 55780 Manual Product Controller 1/> Area 15 Min Each Region Completed 05/08/2023 14244 Therapy Proc, Neuromuscular Reeducation Of Movement Completed 05/08/2023 53148 Therapy Proc 1/> Area 15Min Ea Completed 05/08/2023 33454 Hot/Cold Pack Completed 05/06/2023 80691 Hot/Cold Pack Completed 05/06/2023 57530 Therapy Proc 1/> Area 15Min Ea Completed 05/06/2023 84851 Therapy Proc, Neuromuscular Reeducation Of Movement Completed 05/06/2023 46666 Therapeutic Activities Direc t, Each 15 Minutes Completed 05/06/2023 81217 Manual Product Controller 1/> Area 15 Min Each Region Completed 05/02/2023 02642 Therapeutic Activities Direc t, Each 15 Minutes Completed 05/02/2023 28902 Manual Product Controller 1/> Area 15 Min Each Region Completed 05/02/2023 55340 Therapy Proc, Neuromuscular Reeducation Of Movement Completed 05/02/2023 50340 Therapy Proc 1/> Area 15Min Ea Completed 04/30/2023 54458 Manual Product Controller 1/> Area 15 Min Each Region Completed 04/30/2023 80588 Therapy Proc, Neuromuscular Reeducation Of Movement Completed 04/30/2023 76433 Therapy Proc 1/> Area 15Min Ea Completed 04/30/2023 86358 Hot/Cold Pack Completed 04/24/2023 33798 Therapy Proc, Neuromuscular Reeducation Of Movement Completed 04/24/2023 35987 Therapy Proc 1/> Area 15Min Ea Completed 04/24/2023 38017 Manual Product Controller 1/> Area 15 Min Each Region Completed 04/22/2023 44746 Manual Product Controller 1/> Area 15 Min Each Region Completed 04/22/2023 45350 Therapy Proc, Neuromuscular Reeducation Of Movement Completed 04/22/2023 52981 Therapy Proc 1/> Area 15Min Ea Completed 04/22/2023 03439 Hot/Cold Pack Completed 04/19/2023 11655 Manual Product Controller 1/> Area 15 Min Each Region Completed 04/19/2023 29557 Therapy Proc, Neuromuscular Reeducation Of Movement Completed 04/19/2023 15861 Therapy Proc 1/> Area 15Min Ea Completed 04/19/2023 95017 Hot/Cold Pack Completed 04/18/2023 06768 Therapy Proc 1/> Area 15Min Ea Completed 04/18/2023 38072 Manual Product Controller 1/> Area 15 Min Each Region Completed 04/18/2023 40656 Therapy Proc, Neuromuscular Reeducation Of Movement Completed 04/15/2023 01789 Manual Product Controller 1/> Area 15 Min Each Region Completed 04/15/2023 58098 Therapy Proc, Neuromuscular Reeducation Of Movement Completed 04/15/2023 84942 Therapy Proc 1/> Area 15Min Ea Completed 04/15/2023 58537 Hot/Cold Pack Completed 04/12/2023 07557 Manual Product Controller 1/> Area 15 Min Each Region Completed 04/12/2023 31562 Therapy Proc, Neuromuscular Reeducation Of Movement Completed 04/12/2023 55542 Therapy Proc 1/> Area 15Min Ea Completed 04/12/2023 72965 Hot/Cold Pack Completed 04/10/2023 62946 Manual Product Controller 1/> Area 15 Min Each Region Completed 04/10/2023 64477 Therapy Proc, Neuromuscular Reeducation Of Movement Completed 04/10/2023 60927 Therapy Proc 1/> Area 15Min Ea Completed 04/08/2023 77370 Manual Product Controller 1/> Area 15 Min Each Region Completed 04/08/2023 18756 Therapy Proc 1/> Area 15Min Ea Completed 04/08/2023 76736 Therapy Proc, Neuromuscular Reeducation Of Movement Completed 04/05/2023 76830 Manual Product Controller 1/> Area 15 Min Each Region Completed 04/05/2023 38217 Therapy Proc, Neuromuscular Reeducation Of Movement Completed 04/05/2023 26271 Therapy Proc 1/> Area 15Min Ea Completed 04/03/2023 02302 Manual Product Controller 1/> Area 15 Min Each Region Completed 04/03/2023 18231 Therapy Proc, Neuromuscular Reeducation Of Movement Completed 04/03/2023 16480 Therapy Proc 1/> Area 15Min Ea Completed 04/01/2023 46948 Manual Product Controller 1/> Area 15 Min Each Region Completed 04/01/2023 93535 Therapy Proc, Neuromuscular Reeducation Of Movement Completed 04/01/2023 18298 Therapy Proc 1/> Area 15Min Ea Completed 03/29/2023 72250 Manual Product Controller 1/> Area 15 Min Each Region Completed 03/29/2023 73817 Therapy Proc 1/> Area 15Min Ea Completed 03/29/2023 83128 Therapy Proc, Neuromuscular Reeducation Of Movement Completed 03/27/2023 97506 Manual Product Controller 1/> Area 15 Min Each Region Completed 03/27/2023 67159 Therapy Proc, Neuromuscular Reeducation Of Movement Completed 03/27/2023 43199 Therapy Proc 1/> Area 15Min Ea Completed 03/25/2023 21487 Manual Product Controller 1/> Area 15 Min Each Region Completed 03/25/2023 42597 Therapy Proc, Neuromuscular Reeducation Of Movement Completed 03/25/2023 98941 Therapy Proc 1/> Area 15Min Ea Completed 03/22/2023 90965 Manual Product Controller 1/> Area 15 Min Each Region Completed 03/22/2023 27049 Therapy Proc, Neuromuscular Reeducation Of Movement Completed 03/22/2023 38106 Therapy Proc 1/> Area 15Min Ea Completed 03/20/2023 33858 Therapy Proc, Neuromuscular Reeducation Of Movement Completed 03/20/2023 29006 Therapy Proc 1/> Area 15Min Ea Completed 03/20/2023 55747 Manual Product Controller 1/> Area 15 Min Each Region Completed 03/18/2023 47475 Manual Product Controller 1/> Area 15 Min Each Region Completed 03/18/2023 98432 Therapy Proc, Neuromuscular Reeducation Of Movement Completed 03/18/2023 03121 Therapy Proc 1/> Area 15Min Ea Completed 03/15/2023 79435 Manual Product Controller 1/> Area 15 Min Each Region Completed 03/15/2023 34057 Therapy Proc, Neuromuscular Reeducation Of Movement Completed 03/15/2023 51644 Therapy Proc 1/> Area 15Min Ea Completed 03/13/2023 91623 Physical Therapy Evaluation Moderate Complexity Completed 03/13/2023 43357 Manual Product Controller 1/> Area 15 Min Each Region Completed 03/13/2023 40246 Therapy Proc 1/> Area 15Min Ea Completed 02/18/2023 51800 Venipuncture Routine Complet ed Medical Devices Description No Information Available Encounters Type Date Location Provider Dx Diagnosis Office Visit 02/22/2023 10:30a Jonatan Almodovar DO I10 Essential (pr imary) hypertension 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 F41.1 Generalized anxiety disorder M15.0 Primary generalized (osteo)arthritis Assessments Date Code Description Provider 07/05/2023 R26.2 Difficulty in wa lking, not elsewhere classified Aki Garcia DPT 07/05/2023 M25.511 Pain in right shoulder Oziel Garcia, DPT 07/03/2023 R26.2 Difficulty in wa lking, not elsewhere classified Aki Garcia DPT 07/03/2023 M25.511 Pain in right shoulder Oziel Garcia, GABRIELLET 07/01/2023 R26.2 Difficulty in wa lking, not elsewhere classified Aki Garcia DPT 07/01/2023 M25.511 Pain in right shoulder Oziel Garcia, GABRIELLET 06/28/2023 R26.2 Difficulty in wa lking, not [...] in wa lking, not elsewhere classified Aki Garcai, DPT 03/20/2023 M25.511 Pain in right shoulder [...] in right shoulder Oziel luna Garcia, DPT 02/22/2023 I10 Essential (primary) hyperten vickie Dawson Almodovar, DO 02/22/2023 K21.9 Gastro-esophagea l reflux 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 Dawson Almodovar, DO 02/22/2023 F41.1 Generalized anxiety disorder Dawson Almodovar, DO 02/22/2023 M15.0 Primary generalized (osteo)a rthritis Dawson Almodovar, DO 02/18/2023 I10 Essential (primary) hyperten vickie Dawson Almodovar, DO 02/18/2023 I10 Essential (primary) t[facility] 02/18/2023 E55.9 Vitamin D deficiency, unspec ified Dawson Almodovar, DO 02/18/2023 E55.9 Vitamin D deficiency, unspec ified [facility] 02/18/2023 E53.8 Deficiency of ot her specified B group vitamins Dawson Almodovar, DO 02/18/2023 E53.8 Deficiency of ot her specified B group vitamins [facility] Plan of Treatment Future Appointment(s):* 09/06/2023 10:30 am - Dawson Almodovar DO at [facility] * 08/28/2023 10:30 am - [facility] Functional Status Description No Information Available Mental Status Description No Information Available Referrals Description No Information Available"
--- OUTSIDE RECORDS SUMMARY | 2023-10-11 13:18 | External Medical Summary | Continuity of Care Document ---
Author Name AKI GARCIA DPT Address [address] [facility], [address] [place] [id number] Phone [phone] Organization [facility], Address [address] [place] [address] Phone [phone] Problems Active Problems Provider Date Essential hypertension [...] SIG Qnty Indications Order ing Provider Date [id number] Tablets 2 tablets by mouth every day 30tabs R60.0 Dawson Almodovar DO 10/05/2022 Multi + Williams-3 Adult GummiesChewtabs 1 by mouth every day Dawson Almodovar DO 08/08/2022 Vitamin B ComplexTablets 1 by mouth every day Dawson Almodovar DO 08/08/2022 Losartan Potassium/Hydrochlorothi [id number] Tablets 1 by mouth every day 90tabs I10 Dawson Almodovar, DO 03/21/2020 Juice Plus Fibre` Dawson Almodovar, DO 02/19/2018 Aspirin Adult Low Hpll18fh Tablets DR 1 by mouth every day Unknown Citalopram Dfsfqphpapyu70pd Tablets 1 by mouth every day 90tabs F41.1 Dawson Almodovar, DO Vitamin D3 Maximum [id number] (5000 Ut) Capsules 1 by mouth once daily Unknown Immunizations CPT Code Status Date Vaccine Lot # [id number] Given 07/14/2009 Pneumococcal Vaccine/Pneu movax 23 73815 Refused 10/19/2022 Shingrix 08669 Refused 08/08/2022 Pneumococcal Conjugate-Pr evnar 20 23958 Refused 08/08/2022 Influenza Vac, Split, Preservative Free High Dose Age 65 & > 10690 Refused 04/20/2022 Moderna Sars-Co v-2 (Cov-19) vacc,100 mcg/ 0.5 mL 12Y+EMR Doc Only 60905 Refused 10/16/2021 Influenza Virus Vaccine, Quadrivalent (Cciiv4), Derived From Cell 72481 Refused 10/16/2021 Shingrix 56784 Refused 10/16/2021 Pneumococcal Conjugate-Pr evnar 13 62759 Refused 03/20/2021 Pfizer Sars-Cov -2 (Cov-19) vacc 30mcg/0.3ML 12Y+ EMR Doc Only 10964 Refused 04/17/2019 Influenza Vacci ne, Inactivated, Subunit, Adjuvanted, For Intrmusc 66627 Refused 01/29/2019 Tdap (Tetanus, diphtheria & acel. pertussis) Adacel or Boostrix 19133 Refused 01/29/2019 Pneumococcal Conjugate-Pr evnar 13 Vital [...] H/L Range N ote CBC W/Diff 02/18/2023 [facility] [address] [place] [address] [phone] WBC 7.6 10^3/M3 3.1-9.2 RBC 4.19 10^6/M3 3.70-5.50 HGB 12.2 GR/DL 11.5-16.1 HCT 36.6 % 34.5-47.8 MCV 87.5 CUMICR 82.6-95.8 MCH 29.1 PICOGR 27.9-32.9 MCHC 33.3 % 32.6-35.4 RDW 14.9 % High 11.4-14.6 PLT 225 10^3/M3 140-350 MPV 8.8 CUMICR 7.0-10.6 %Neut 57.1 % 40.0-75.0 %Lymph 29.4 % 17.0-45.0 %[place] 8.6 % 1.0-11.0 %Eos 3.8 % 0.0-6.0 %Baso 1.1 % 0.0-2.0 #Neut 4.4 10^3/M3 1.5-8.0 #Lymph 2.2 10^3/M3 0.8-3.2 #[place] 0.7 10^3/M3 0.0-0.8 #Eos 0.3 10^3/m3 0.0-0.4 #Baso 0.1 10^3/m3 0.0-0.2 Comp. Met 02/18/2023 [facility] [address] [place], [place] [id number] [phone] Glucose 96 mg/dL 70-110 BUN 18 mg/dL [...] 2.0-3.4 GFR 72 ML/MIN/1.73SQM >60 Lipid 02/18/2023 [facility] [address] [place] [address] [phone] Cholesterol 164 mg/dL 0-200 1 Triglyceride 79 mg/dL 0-150 2 HDLD 62 mg/dL See Comment 3 Measured LDL 99 mg/dL 0-130 4 Calc VLDL 15.8 mg/dL See Comment 5 Chol/HDL 2.6 RATIO See Comment 6 Non-HDL 102 mg/dL See Comment 7 Laboratory test finding 02/18/2023 [facility] [address] [place] [address] [phone] Vitd-25Oh 77 ng/mL 30-100 VB12 411 pg/mL [...] LDL Target Procedures Date Code Description Status 07/03/2023 86284 Manual Rib Bender 1/> Area 15 Min Each Region Completed 07/03/2023 84228 Therapy Proc, Neuromuscular Reeducation Of Movement Completed 07/03/2023 56614 Therapy Proc 1/> Area 15Min Ea Completed 07/03/2023 55850 Hot/Cold Pack Completed 07/03/2023 69609 Therapeutic Activities Direc t, Each 15 Minutes Completed 07/01/2023 57620 Therapeutic Activities Direc t, Each 15 Minutes Completed 07/01/2023 04763 Manual Rib Bender 1/> Area 15 Min Each Region Completed 07/01/2023 29265 Therapy Proc, Neuromuscular Reeducation Of Movement Completed 07/01/2023 90824 Therapy Proc 1/> Area 15Min Ea Completed 07/01/2023 61307 Hot/Cold Pack Completed 06/28/2023 52115 Therapeutic Activities Direc t, Each 15 Minutes Completed 06/28/2023 72559 Therapy Proc 1/> Area 15Min Ea Completed 06/28/2023 54919 Therapy Proc, Neuromuscular Reeducation Of Movement Completed 06/28/2023 62678 Manual Rib Bender 1/> Area 15 Min Each Region Completed 06/24/2023 45781 Therapeutic Activities Direc t, Each 15 Minutes Completed 06/24/2023 18447 Manual Rib Bender 1/> Area 15 Min Each Region Completed 06/24/2023 76684 Therapy Proc, Neuromuscular Reeducation Of Movement Completed 06/24/2023 65656 Therapy Proc 1/> Area 15Min Ea Completed 06/24/2023 10309 Hot/Cold Pack Completed 06/21/2023 46398 Hot/Cold Pack Completed 06/21/2023 06834 Therapy Proc 1/> Area 15Min Ea Completed 06/21/2023 33659 Manual Rib Bender 1/> Area 15 Min Each Region Completed 06/21/2023 41564 Therapeutic Activities Direc t, Each 15 Minutes Completed 06/21/2023 88854 Therapy Proc, Neuromuscular Reeducation Of Movement Completed 06/19/2023 54516 Therapeutic Activities Direc t, Each 15 Minutes Completed 06/19/2023 58402 Manual Rib Bender 1/> Area 15 Min Each Region Completed 06/19/2023 03488 Therapy Proc, Neuromuscular Reeducation Of Movement Completed 06/19/2023 40096 Therapy Proc 1/> Area 15Min Ea Completed 06/19/2023 68186 Hot/Cold Pack Completed 06/17/2023 31864 Hot/Cold Pack Completed 06/17/2023 83991 Therapy Proc 1/> Area 15Min Ea Completed 06/17/2023 03743 Therapy Proc, Neuromuscular Reeducation Of Movement Completed 06/17/2023 86797 Manual Rib Bender 1/> Area 15 Min Each Region Completed 06/17/2023 75458 Therapeutic Activities Direc t, Each 15 Minutes Completed 06/14/2023 39929 Therapeutic Activities Direc t, Each 15 Minutes Completed 06/14/2023 67840 Manual Rib Bender 1/> Area 15 Min Each Region Completed 06/14/2023 78758 Therapy Proc, Neuromuscular Reeducation Of Movement Completed 06/14/2023 00919 Therapy Proc 1/> Area 15Min Ea Completed 06/14/2023 00095 Hot/Cold Pack Completed 06/12/2023 19706 Therapeutic Activities Direc t, Each 15 Minutes Completed 06/12/2023 26155 Manual Rib Bender 1/> Area 15 Min Each Region Completed 06/12/2023 43090 Therapy Proc, Neuromuscular Reeducation Of Movement Completed 06/12/2023 43655 Therapy Proc 1/> Area 15Min Ea Completed 06/12/2023 15455 Hot/Cold Pack Completed 06/07/2023 85082 Therapy Proc 1/> Area 15Min Ea Completed 06/07/2023 51138 Therapy Proc, Neuromuscular Reeducation Of Movement Completed 06/07/2023 19722 Manual Rib Bender 1/> Area 15 Min Each Region Completed 06/07/2023 21411 Therapeutic Activities Direc t, Each 15 Minutes Completed 06/05/2023 20992 Manual Rib Bender 1/> Area 15 Min Each Region Completed 06/05/2023 96665 Therapeutic Activities Direc t, Each 15 Minutes Completed 06/05/2023 60587 Hot/Cold Pack Completed 06/05/2023 92439 Therapy Proc, Neuromuscular Reeducation Of Movement Completed 06/05/2023 78520 Therapy Proc 1/> Area 15Min Ea Completed 06/03/2023 21124 Therapeutic Activities Direc t, Each 15 Minutes Completed 06/03/2023 78718 Manual Rib Bender 1/> Area 15 Min Each Region Completed 06/03/2023 32938 Therapy Proc, Neuromuscular Reeducation Of Movement Completed 06/03/2023 40103 Therapy Proc 1/> Area 15Min Ea Completed 06/03/2023 62334 Hot/Cold Pack Completed 05/31/2023 13676 Therapy Proc, Neuromuscular Reeducation Of Movement Completed 05/31/2023 03194 Hot/Cold Pack Completed 05/31/2023 80786 Manual Rib Bender 1/> Area 15 Min Each Region Completed 05/31/2023 68113 Therapeutic Activities Direc t, Each 15 Minutes Completed 05/29/2023 30290 Therapeutic Activities Direc t, Each 15 Minutes Completed 05/29/2023 09692 Therapeutic Procedure Group Completed 05/29/2023 70656 Manual Rib Bender 1/> Area 15 Min Each Region Completed 05/29/2023 41180 Therapy Proc, Neuromuscular Reeducation Of Movement Completed 05/29/2023 83558 Hot/Cold Pack Completed 05/27/2023 61559 Hot/Cold Pack Completed 05/27/2023 50699 Therapy Proc, Neuromuscular Reeducation Of Movement Completed 05/27/2023 95692 Therapeutic Procedure Group Completed 05/27/2023 41147 Therapeutic Activities Direc t, Each 15 Minutes Completed 05/27/2023 84391 Manual Rib Bender 1/> Area 15 Min Each Region Completed 05/24/2023 71794 Therapeutic Activities Direc t, Each 15 Minutes Completed 05/24/2023 35105 Manual Rib Bender 1/> Area 15 Min Each Region Completed 05/24/2023 60595 Therapy Proc, Neuromuscular Reeducation Of Movement Completed 05/24/2023 48703 Therapy Proc 1/> Area 15Min Ea Completed 05/24/2023 37849 Hot/Cold Pack Completed 05/22/2023 25725 Hot/Cold Pack Completed 05/22/2023 56790 Therapy Proc 1/> Area 15Min Ea Completed 05/22/2023 89206 Therapy Proc, Neuromuscular Reeducation Of Movement Completed 05/22/2023 46149 Manual Rib Bender 1/> Area 15 Min Each Region Completed 05/22/2023 71162 Therapeutic Activities Direc t, Each 15 Minutes Completed 05/20/2023 01168 Therapeutic Activities Direc t, Each 15 Minutes Completed 05/20/2023 57966 Manual Rib Bender 1/> Area 15 Min Each Region Completed 05/20/2023 43300 Therapy Proc, Neuromuscular Reeducation Of Movement Completed 05/20/2023 69425 Therapy Proc 1/> Area 15Min Ea Completed 05/20/2023 27525 Hot/Cold Pack Completed 05/17/2023 25742 Therapeutic Activities Direc t, Each 15 Minutes Completed 05/17/2023 78232 Manual Rib Bender 1/> Area 15 Min Each Region Completed 05/17/2023 19314 Therapy Proc, Neuromuscular Reeducation Of Movement Completed 05/17/2023 29170 Therapy Proc 1/> Area 15Min Ea Completed 05/17/2023 57816 Hot/Cold Pack Completed 05/15/2023 19169 Therapy Proc 1/> Area 15Min Ea Completed 05/15/2023 47970 Hot/Cold Pack Completed 05/15/2023 18279 Manual Rib Bender 1/> Area 15 Min Each Region Completed 05/15/2023 52397 Therapeutic Activities Direc t, Each 15 Minutes Completed 05/15/2023 52486 Therapy Proc, Neuromuscular Reeducation Of Movement Completed 2023 73187 Manual Rib Bender 1/> Area 15 Min Each Region Completed 2023 41870 Therapeutic Activities Direc t, Each 15 Minutes Completed 2023 86525 Hot/Cold Pack Completed 2023 72714 Therapy Proc, Neuromuscular Reeducation Of Movement Completed 2023 84151 Therapy Proc 1/> Area 15Min Ea Completed 05/10/2023 11907 Therapeutic Activities Direc t, Each 15 Minutes Completed 05/10/2023 32477 Manual Rib Bender 1/> Area 15 Min Each Region Completed 05/10/2023 27355 Therapy Proc, Neuromuscular Reeducation Of Movement Completed 05/10/2023 66899 Therapy Proc 1/> Area 15Min Ea Completed 05/10/2023 01350 Hot/Cold Pack Completed 05/08/2023 59779 Therapy Proc, Neuromuscular Reeducation Of Movement Completed 05/08/2023 31455 Hot/Cold Pack Completed 05/08/2023 85657 Therapy Proc 1/> Area 15Min Ea Completed 05/08/2023 50150 Manual Rib Bender 1/> Area 15 Min Each Region Completed 05/08/2023 14707 Therapeutic Activities Direc t, Each 15 Minutes Completed 05/06/2023 22425 Therapeutic Activities Direc t, Each 15 Minutes Completed 05/06/2023 00906 Manual Rib Bender 1/> Area 15 Min Each Region Completed 05/06/2023 48953 Therapy Proc, Neuromuscular Reeducation Of Movement Completed 05/06/2023 86022 Therapy Proc 1/> Area 15Min Ea Completed 05/06/2023 89890 Hot/Cold Pack Completed 05/02/2023 27139 Therapy Proc 1/> Area 15Min Ea Completed 05/02/2023 62170 Therapy Proc, Neuromuscular Reeducation Of Movement Completed 05/02/2023 63032 Therapeutic Activities Direc t, Each 15 Minutes Completed 05/02/2023 11066 Manual Rib Bender 1/> Area 15 Min Each Region Completed 04/30/2023 58048 Manual Rib Bender 1/> Area 15 Min Each Region Completed 04/30/2023 03361 Therapy Proc, Neuromuscular Reeducation Of Movement Completed 04/30/2023 11058 Therapy Proc 1/> Area 15Min Ea Completed 04/30/2023 86798 Hot/Cold Pack Completed 04/24/2023 11094 Manual Rib Bender 1/> Area 15 Min Each Region Completed 04/24/2023 54989 Therapy Proc, Neuromuscular Reeducation Of Movement Completed 04/24/2023 39699 Therapy Proc 1/> Area 15Min Ea Completed 04/22/2023 92134 Therapy Proc 1/> Area 15Min Ea Completed 04/22/2023 96082 Hot/Cold Pack Completed 04/22/2023 12854 Therapy Proc, Neuromuscular Reeducation Of Movement Completed 04/22/2023 53905 Manual Rib Bender 1/> Area 15 Min Each Region Completed 04/19/2023 80021 Manual Rib Bender 1/> Area 15 Min Each Region Completed 04/19/2023 88930 Therapy Proc, Neuromuscular Reeducation Of Movement Completed 04/19/2023 88739 Therapy Proc 1/> Area 15Min Ea Completed 04/19/2023 67911 Hot/Cold Pack Completed 04/18/2023 33698 Manual Rib Bender 1/> Area 15 Min Each Region Completed 04/18/2023 34652 Therapy Proc, Neuromuscular Reeducation Of Movement Completed 04/18/2023 28768 Therapy Proc 1/> Area 15Min Ea Completed 04/15/2023 70683 Hot/Cold Pack Completed 04/15/2023 42832 Therapy Proc 1/> Area 15Min Ea Completed 04/15/2023 88233 Manual Rib Bender 1/> Area 15 Min Each Region Completed 04/15/2023 46017 Therapy Proc, Neuromuscular Reeducation Of Movement Completed 04/12/2023 98186 Therapy Proc, Neuromuscular Reeducation Of Movement Completed 04/12/2023 32822 Therapy Proc 1/> Area 15Min Ea Completed 04/12/2023 36539 Hot/Cold Pack Completed 04/12/2023 96151 Manual Rib Bender 1/> Area 15 Min Each Region Completed 04/10/2023 26045 Manual Rib Bender 1/> Area 15 Min Each Region Completed 04/10/2023 57835 Therapy Proc, Neuromuscular Reeducation Of Movement Completed 04/10/2023 71792 Therapy Proc 1/> Area 15Min Ea Completed 04/08/2023 53407 Manual Rib Bender 1/> Area 15 Min Each Region Completed 04/08/2023 71485 Therapy Proc, Neuromuscular Reeducation Of Movement Completed 04/08/2023 17977 Therapy Proc 1/> Area 15Min Ea Completed 04/05/2023 34331 Manual Rib Bender 1/> Area 15 Min Each Region Completed 04/05/2023 69243 Therapy Proc 1/> Area 15Min Ea Completed 04/05/2023 95813 Therapy Proc, Neuromuscular Reeducation Of Movement Completed 04/03/2023 60964 Manual Rib Bender 1/> Area 15 Min Each Region Completed 04/03/2023 89479 Therapy Proc, Neuromuscular Reeducation Of Movement Completed 04/03/2023 37518 Therapy Proc 1/> Area 15Min Ea Completed 04/01/2023 30503 Manual Rib Bender 1/> Area 15 Min Each Region Completed 04/01/2023 77672 Therapy Proc, Neuromuscular Reeducation Of Movement Completed 04/01/2023 54000 Therapy Proc 1/> Area 15Min Ea Completed 03/29/2023 32549 Therapy Proc 1/> Area 15Min Ea Completed 03/29/2023 30241 Manual Rib Bender 1/> Area 15 Min Each Region Completed 03/29/2023 05128 Therapy Proc, Neuromuscular Reeducation Of Movement Completed 03/27/2023 15311 Manual Rib Bender 1/> Area 15 Min Each Region Completed 03/27/2023 44966 Therapy Proc, Neuromuscular Reeducation Of Movement Completed 03/27/2023 47785 Therapy Proc 1/> Area 15Min Ea Completed 03/25/2023 61829 Manual Rib Bender 1/> Area 15 Min Each Region Completed 03/25/2023 71231 Therapy Proc, Neuromuscular Reeducation Of Movement Completed 03/25/2023 59800 Therapy Proc 1/> Area 15Min Ea Completed 03/22/2023 23226 Manual Rib Bender 1/> Area 15 Min Each Region Completed 03/22/2023 58432 Therapy Proc, Neuromuscular Reeducation Of Movement Completed 03/22/2023 95930 Therapy Proc 1/> Area 15Min Ea Completed 03/20/2023 58171 Therapy Proc, Neuromuscular Reeducation Of Movement Completed 03/20/2023 07324 Therapy Proc 1/> Area 15Min Ea Completed 03/20/2023 60879 Manual Rib Bender 1/> Area 15 Min Each Region Completed 03/18/2023 92902 Manual Rib Bender 1/> Area 15 Min Each Region Completed 03/18/2023 67047 Therapy Proc, Neuromuscular Reeducation Of Movement Completed 03/18/2023 43767 Therapy Proc 1/> Area 15Min Ea Completed 03/15/2023 18731 Manual Rib Bender 1/> Area 15 Min Each Region Completed 03/15/2023 97061 Therapy Proc, Neuromuscular Reeducation Of Movement Completed 03/15/2023 14174 Therapy Proc 1/> Area 15Min Ea Completed 03/13/2023 42140 Physical Therapy Evaluation Moderate Complexity Completed 03/13/2023 93163 Manual Rib Bender 1/> Area 15 Min Each Region Completed 03/13/2023 15940 Therapy Proc 1/> Area 15Min Ea Completed 02/18/2023 72618 Venipuncture Routine Complet ed Medical Devices Description No Information Available Encounters Type Date Location Provider Dx Diagnosis Office Visit 02/22/2023 10[facility], I10 Essential (pr imary) hypertension 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 F41.1 Generalized anxiety disorder M15.0 Primary generalized (osteo)arthritis Assessments Date Code Description Provider 07/03/2023 R26.2 Difficulty in wa lking, not elsewhere classified Aki Garcia, GABRIELLET 07/03/2023 M25.511 Pain in right shoulder Oziel Garcia, DPT 07/01/2023 R26.2 Difficulty in wa lking, not elsewhere classified GABRIELLE EspinozaT 07/01/2023 M25.511 Pain in right shoulder Oziel Garcia, DPT 06/28/2023 R26.2 Difficulty in wa lking, not elsewhere classified GABRIELLE EspinozaT 06/28/2023 M25.511 Pain in right shoulder Oziel Garcia, DPT 06/26/2023 R26.2 Difficulty in wa lking, not elsewhere classified GABRIELLE EspinozaT 06/26/2023 M25.511 Pain in right shoulder Oziel Garcia, DPT 06/24/2023 R26.2 Difficulty in wa lking, not elsewhere classified GABRIELLE EspinozaT 06/24/2023 M25.511 Pain in right shoulder Oziel [...] DPT 06/03/2023 M25.511 Pain in right shoulder Ozeil Garcia, DPT 05/31/2023 R26.2 Difficulty in wa [...] lking, not elsewhere classified Aki Garcia DPT 04/01/2023 M25.511 Pain in right shoulder [...] I10 Essential (primary) hyperten vickie [facility] 02/18/2023 E55.9 Vitamin D deficiency, unspec ified Dawson Almodovar DO 02/18/2023 E55.9 Vitamin D deficiency, unspec ified [facility] 02/18/2023 E53.8 Deficiency of ot her specified B group vitamins Dawson Almodovar DO 02/18/2023 E53.8 Deficiency of ot her specified B group vitamins [facility] Plan of Treatment Future Appointment(s):* 09/06/2023 10:30 am - Dawson Almodovar DO at [facility] * 08/28/2023 10:30 am - [facility] Functional Status Description No Information Available Mental Status Description No Information Available Referrals Description No Information Available"
--- OUTSIDE RECORDS SUMMARY | 2023-10-11 13:18 | External Medical Summary | Continuity of Care Document ---
Author Name AKI GARCIA DPT Address [address] [facility], [address] [place] [id number] Phone [phone] Organization [facility], Address [address] [place] [address] Phone [phone] Problems Active Problems Provider Date Essential hypertension [...] SIG Qnty Indications Order ing Provider Date Hgyslifxmb34ky Tablets 2 tablets by mouth every day 30tabs R60.0 Dawson Almodovar DO 10/05/2022 Multi + [place]-3 Adult GummiesChewtabs 1 by mouth every day Dawson Alomdovar DO 08/08/2022 Vitamin B ComplexTablets 1 by mouth every day Dawsno Almodovar DO 08/08/2022 Losartan Potassium/Hydrochlorothi [id number] Tablets 1 by mouth every day 90tabs I10 Dawson Almodovar, DO 03/21/2020 Juice Plus Fibre` Dawson Almodovar, DO 02/19/2018 Aspirin Adult Low Vyls90aj Tablets DR 1 by mouth every day Unknown Citalopram Nghprapbkkzz21xe Tablets 1 by mouth every day 90tabs F41.1 Dawson Almodovar, DO Vitamin D3 Maximum [id number] (5000 Ut) Capsules 1 by mouth once daily Unknown Immunizations CPT Code Status Date Vaccine Lot # [id number] Given 07/14/2009 Pneumococcal Vaccine/Pneu movax 23 [id number] Refused 10/19/2022 Shingrix [id number] Refused 08/08/2022 Pneumococcal Conjugate-Pr evnar 20 80487 Refused 08/08/2022 Influenza Vac, Split, Preservative Free High Dose Age 65 & > 05589 Refused 04/20/2022 Moderna Sars-Co v-2 (Cov-19) vacc,100 mcg/ 0.5 mL 12Y+EMR Doc Only 96811 Refused 10/16/2021 Influenza Virus Vaccine, Quadrivalent (Cciiv4), Derived From Cell 68576 Refused 10/16/2021 Shingrix 99121 Refused 10/16/2021 Pneumococcal Conjugate-Pr evnar 13 63523 Refused 03/20/2021 Pfizer Sars-Cov -2 (Cov-19) vacc 30mcg/0.3ML 12Y+ EMR Doc Only 91427 Refused 04/17/2019 Influenza Vacci ne, Inactivated, Subunit, Adjuvanted, For Intrmusc 79503 Refused 01/29/2019 Tdap (Tetanus, diphtheria & acel. pertussis) Adacel or Boostrix 26853 Refused 01/29/2019 Pneumococcal Conjugate-Pr evnar 13 Vital [...] H/L Range N ote CBC W/Diff 02/18/2023 [facility]. [address] [place] [address] [phone] WBC 7.6 10^3/M3 3.1-9.2 RBC 4.19 10^6/M3 3.70-5.50 HGB 12.2 GR/DL 11.5-16.1 HCT 36.6 % 34.5-47.8 MCV 87.5 CUMICR 82.6-95.8 MCH 29.1 PICOGR 27.9-32.9 MCHC 33.3 % 32.6-35.4 RDW 14.9 % High 11.4-14.6 PLT 225 10^3/M3 140-350 MPV 8.8 CUMICR 7.0-10.6 %Neut 57.1 % 40.0-75.0 %Lymph 29.4 % 17.0-45.0 %[place] 8.6 % 1.0-11.0 %Eos 3.8 % 0.0-6.0 %Baso 1.1 % 0.0-2.0 #Neut 4.4 10^3/M3 1.5-8.0 #Lymph 2.2 10^3/M3 0.8-3.2 #[place] 0.7 10^3/M3 0.0-0.8 #Eos 0.3 10^3/m3 0.0-0.4 #Baso 0.1 10^3/m3 0.0-0.2 Comp. Met 02/18/2023 [facility]. [address] [place], [place] [id number] [phone] Glucose 96 mg/dL 70-110 BUN 18 mg/dL [...] 2.0-3.4 GFR 72 ML/MIN/1.73SQM >60 Lipid 02/18/2023 [facility] [address] [place] [address] [phone] Cholesterol 164 mg/dL 0-200 1 Triglyceride 79 mg/dL 0-150 2 HDLD 62 mg/dL See Comment 3 Measured LDL 99 mg/dL 0-130 4 Calc VLDL 15.8 mg/dL See Comment 5 Chol/HDL 2.6 RATIO See Comment 6 Non-HDL 102 mg/dL See Comment 7 Laboratory test finding 02/18/2023 [facility] [address] [place] [address] [phone] Vitd-25Oh 77 ng/mL 30-100 VB12 411 pg/mL [...] LDL Target Procedures Date Code Description Status 07/01/2023 23969 Manual Movie Producer 1/> Area 15 Min Each Region Completed 07/01/2023 36959 Therapy Proc, Neuromuscular Reeducation Of Movement Completed 07/01/2023 97701 Therapy Proc 1/> Area 15Min Ea Completed 07/01/2023 73348 Hot/Cold Pack Completed 07/01/2023 77557 Therapeutic Activities Direc t, Each 15 Minutes Completed 06/28/2023 45994 Therapeutic Activities Direc t, Each 15 Minutes Completed 06/28/2023 85818 Manual Movie Producer 1/> Area 15 Min Each Region Completed 06/28/2023 92874 Therapy Proc, Neuromuscular Reeducation Of Movement Completed 06/28/2023 13713 Therapy Proc 1/> Area 15Min Ea Completed 06/24/2023 49241 Manual Movie Producer 1/> Area 15 Min Each Region Completed 06/24/2023 95000 Hot/Cold Pack Completed 06/24/2023 97502 Therapy Proc 1/> Area 15Min Ea Completed 06/24/2023 59765 Therapy Proc, Neuromuscular Reeducation Of Movement Completed 06/24/2023 66920 Therapeutic Activities Direc t, Each 15 Minutes Completed 06/21/2023 04082 Therapeutic Activities Direc t, Each 15 Minutes Completed 06/21/2023 28913 Manual Movie Producer 1/> Area 15 Min Each Region Completed 06/21/2023 63925 Therapy Proc, Neuromuscular Reeducation Of Movement Completed 06/21/2023 89981 Therapy Proc 1/> Area 15Min Ea Completed 06/21/2023 56371 Hot/Cold Pack Completed 06/19/2023 03555 Hot/Cold Pack Completed 06/19/2023 29066 Therapy Proc 1/> Area 15Min Ea Completed 06/19/2023 56069 Manual Movie Producer 1/> Area 15 Min Each Region Completed 06/19/2023 63101 Therapeutic Activities Direc t, Each 15 Minutes Completed 06/19/2023 72314 Therapy Proc, Neuromuscular Reeducation Of Movement Completed 06/17/2023 76738 Therapeutic Activities Direc t, Each 15 Minutes Completed 06/17/2023 71781 Manual Movie Producer 1/> Area 15 Min Each Region Completed 06/17/2023 49767 Therapy Proc, Neuromuscular Reeducation Of Movement Completed 06/17/2023 93055 Therapy Proc 1/> Area 15Min Ea Completed 06/17/2023 13100 Hot/Cold Pack Completed 06/14/2023 67400 Hot/Cold Pack Completed 06/14/2023 79649 Therapy Proc 1/> Area 15Min Ea Completed 06/14/2023 82889 Therapy Proc, Neuromuscular Reeducation Of Movement Completed 06/14/2023 99859 Manual Movie Producer 1/> Area 15 Min Each Region Completed 06/14/2023 93178 Therapeutic Activities Direc t, Each 15 Minutes Completed 06/12/2023 29104 Therapeutic Activities Direc t, Each 15 Minutes Completed 06/12/2023 50371 Manual Movie Producer 1/> Area 15 Min Each Region Completed 06/12/2023 86804 Therapy Proc, Neuromuscular Reeducation Of Movement Completed 06/12/2023 61426 Therapy Proc 1/> Area 15Min Ea Completed 06/12/2023 45374 Hot/Cold Pack Completed 06/07/2023 55600 Therapeutic Activities Direc t, Each 15 Minutes Completed 06/07/2023 42230 Manual Movie Producer 1/> Area 15 Min Each Region Completed 06/07/2023 26468 Therapy Proc, Neuromuscular Reeducation Of Movement Completed 06/07/2023 03317 Therapy Proc 1/> Area 15Min Ea Completed 06/05/2023 41795 Manual Movie Producer 1/> Area 15 Min Each Region Completed 06/05/2023 61953 Hot/Cold Pack Completed 06/05/2023 80924 Therapy Proc 1/> Area 15Min Ea Completed 06/05/2023 53278 Therapy Proc, Neuromuscular Reeducation Of Movement Completed 06/05/2023 76399 Therapeutic Activities Direc t, Each 15 Minutes Completed 06/03/2023 16689 Manual Movie Producer 1/> Area 15 Min Each Region Completed 06/03/2023 71607 Therapy Proc, Neuromuscular Reeducation Of Movement Completed 06/03/2023 19684 Therapy Proc 1/> Area 15Min Ea Completed 06/03/2023 40460 Hot/Cold Pack Completed 06/03/2023 72316 Therapeutic Activities Direc t, Each 15 Minutes Completed 05/31/2023 76102 Therapeutic Activities Direc t, Each 15 Minutes Completed 05/31/2023 12432 Manual Movie Producer 1/> Area 15 Min Each Region Completed 05/31/2023 18204 Therapy Proc, Neuromuscular Reeducation Of Movement Completed 05/31/2023 78185 Hot/Cold Pack Completed 05/29/2023 57599 Manual Movie Producer 1/> Area 15 Min Each Region Completed 05/29/2023 00900 Hot/Cold Pack Completed 05/29/2023 52677 Therapy Proc, Neuromuscular Reeducation Of Movement Completed 05/29/2023 57041 Therapeutic Procedure Group Completed 05/29/2023 32449 Therapeutic Activities Direc t, Each 15 Minutes Completed 05/27/2023 69081 Therapeutic Activities Direc t, Each 15 Minutes Completed 05/27/2023 25540 Therapeutic Procedure Group Completed 05/27/2023 60784 Manual Movie Producer 1/> Area 15 Min Each Region Completed 05/27/2023 28504 Therapy Proc, Neuromuscular Reeducation Of Movement Completed 05/27/2023 52859 Hot/Cold Pack Completed 05/24/2023 35409 Manual Movie Producer 1/> Area 15 Min Each Region Completed 05/24/2023 78024 Hot/Cold Pack Completed 05/24/2023 56078 Therapy Proc 1/> Area 15Min Ea Completed 05/24/2023 82506 Therapeutic Activities Direc t, Each 15 Minutes Completed 05/24/2023 11495 Therapy Proc, Neuromuscular Reeducation Of Movement Completed 05/22/2023 77471 Therapeutic Activities Direc t, Each 15 Minutes Completed 05/22/2023 32638 Manual Movie Producer 1/> Area 15 Min Each Region Completed 05/22/2023 00309 Therapy Proc, Neuromuscular Reeducation Of Movement Completed 05/22/2023 20904 Therapy Proc 1/> Area 15Min Ea Completed 05/22/2023 50151 Hot/Cold Pack Completed 05/20/2023 36297 Therapy Proc, Neuromuscular Reeducation Of Movement Completed 05/20/2023 12599 Hot/Cold Pack Completed 05/20/2023 91695 Therapy Proc 1/> Area 15Min Ea Completed 05/20/2023 76536 Manual Movie Producer 1/> Area 15 Min Each Region Completed 05/20/2023 15522 Therapeutic Activities Direc t, Each 15 Minutes Completed 05/17/2023 67861 Therapeutic Activities Direc t, Each 15 Minutes Completed 05/17/2023 95524 Manual Movie Producer 1/> Area 15 Min Each Region Completed 05/17/2023 11681 Therapy Proc, Neuromuscular Reeducation Of Movement Completed 05/17/2023 21802 Therapy Proc 1/> Area 15Min Ea Completed 05/17/2023 75416 Hot/Cold Pack Completed 05/15/2023 64505 Therapy Proc 1/> Area 15Min Ea Completed 05/15/2023 03041 Hot/Cold Pack Completed 05/15/2023 54942 Manual Movie Producer 1/> Area 15 Min Each Region Completed 05/15/2023 16670 Therapy Proc, Neuromuscular Reeducation Of Movement Completed 05/15/2023 04951 Therapeutic Activities Direc t, Each 15 Minutes Completed 2023 20163 Therapeutic Activities Direc t, Each 15 Minutes Completed 2023 05204 Hot/Cold Pack Completed 2023 47778 Therapy Proc 1/> Area 15Min Ea Completed 2023 94306 Manual Movie Producer 1/> Area 15 Min Each Region Completed 2023 71873 Therapy Proc, Neuromuscular Reeducation Of Movement Completed 05/10/2023 99836 Therapeutic Activities Direc t, Each 15 Minutes Completed 05/10/2023 54008 Manual Movie Producer 1/> Area 15 Min Each Region Completed 05/10/2023 62690 Therapy Proc, Neuromuscular Reeducation Of Movement Completed 05/10/2023 54743 Therapy Proc 1/> Area 15Min Ea Completed 05/10/2023 25296 Hot/Cold Pack Completed 05/08/2023 30789 Therapy Proc, Neuromuscular Reeducation Of Movement Completed 05/08/2023 76434 Hot/Cold Pack Completed 05/08/2023 50876 Therapy Proc 1/> Area 15Min Ea Completed 05/08/2023 19816 Manual Movie Producer 1/> Area 15 Min Each Region Completed 05/08/2023 23549 Therapeutic Activities Direc t, Each 15 Minutes Completed 05/06/2023 90452 Therapeutic Activities Direc t, Each 15 Minutes Completed 05/06/2023 70578 Manual Movie Producer 1/> Area 15 Min Each Region Completed 05/06/2023 63705 Therapy Proc, Neuromuscular Reeducation Of Movement Completed 05/06/2023 73465 Therapy Proc 1/> Area 15Min Ea Completed 05/06/2023 76303 Hot/Cold Pack Completed 05/02/2023 00002 Therapy Proc 1/> Area 15Min Ea Completed 05/02/2023 76941 Manual Movie Producer 1/> Area 15 Min Each Region Completed 05/02/2023 23313 Therapeutic Activities Direc t, Each 15 Minutes Completed 05/02/2023 23686 Therapy Proc, Neuromuscular Reeducation Of Movement Completed 04/30/2023 61012 Manual Movie Producer 1/> Area 15 Min Each Region Completed 04/30/2023 22691 Therapy Proc, Neuromuscular Reeducation Of Movement Completed 04/30/2023 93236 Therapy Proc 1/> Area 15Min Ea Completed 04/30/2023 29503 Hot/Cold Pack Completed 04/24/2023 87772 Manual Movie Producer 1/> Area 15 Min Each Region Completed 04/24/2023 59501 Therapy Proc, Neuromuscular Reeducation Of Movement Completed 04/24/2023 06366 Therapy Proc 1/> Area 15Min Ea Completed 04/22/2023 65199 Therapy Proc 1/> Area 15Min Ea Completed 04/22/2023 56062 Hot/Cold Pack Completed 04/22/2023 62116 Therapy Proc, Neuromuscular Reeducation Of Movement Completed 04/22/2023 02911 Manual Movie Producer 1/> Area 15 Min Each Region Completed 04/19/2023 40438 Manual Movie Producer 1/> Area 15 Min Each Region Completed 04/19/2023 23398 Therapy Proc, Neuromuscular Reeducation Of Movement Completed 04/19/2023 95138 Therapy Proc 1/> Area 15Min Ea Completed 04/19/2023 66383 Hot/Cold Pack Completed 04/18/2023 41357 Manual Movie Producer 1/> Area 15 Min Each Region Completed 04/18/2023 92721 Therapy Proc, Neuromuscular Reeducation Of Movement Completed 04/18/2023 41405 Therapy Proc 1/> Area 15Min Ea Completed 04/15/2023 00129 Hot/Cold Pack Completed 04/15/2023 91507 Therapy Proc, Neuromuscular Reeducation Of Movement Completed 04/15/2023 08250 Manual Movie Producer 1/> Area 15 Min Each Region Completed 04/15/2023 84778 Therapy Proc 1/> Area 15Min Ea Completed 04/12/2023 92122 Therapy Proc, Neuromuscular Reeducation Of Movement Completed 04/12/2023 45388 Therapy Proc 1/> Area 15Min Ea Completed 04/12/2023 25255 Hot/Cold Pack Completed 04/12/2023 38020 Manual Movie Producer 1/> Area 15 Min Each Region Completed 04/10/2023 44392 Manual Movie Producer 1/> Area 15 Min Each Region Completed 04/10/2023 03253 Therapy Proc, Neuromuscular Reeducation Of Movement Completed 04/10/2023 32344 Therapy Proc 1/> Area 15Min Ea Completed 04/08/2023 50351 Manual Movie Producer 1/> Area 15 Min Each Region Completed 04/08/2023 56075 Therapy Proc, Neuromuscular Reeducation Of Movement Completed 04/08/2023 77905 Therapy Proc 1/> Area 15Min Ea Completed 04/05/2023 14751 Manual Movie Producer 1/> Area 15 Min Each Region Completed 04/05/2023 66191 Therapy Proc 1/> Area 15Min Ea Completed 04/05/2023 73442 Therapy Proc, Neuromuscular Reeducation Of Movement Completed 04/03/2023 30412 Manual Movie Producer 1/> Area 15 Min Each Region Completed 04/03/2023 39173 Therapy Proc, Neuromuscular Reeducation Of Movement Completed 04/03/2023 22780 Therapy Proc 1/> Area 15Min Ea Completed 04/01/2023 49371 Manual Movie Producer 1/> Area 15 Min Each Region Completed 04/01/2023 37462 Therapy Proc, Neuromuscular Reeducation Of Movement Completed 04/01/2023 55318 Therapy Proc 1/> Area 15Min Ea Completed 03/29/2023 39739 Therapy Proc 1/> Area 15Min Ea Completed 03/29/2023 39698 Manual Movie Producer 1/> Area 15 Min Each Region Completed 03/29/2023 92826 Therapy Proc, Neuromuscular Reeducation Of Movement Completed 03/27/2023 33329 Manual Movie Producer 1/> Area 15 Min Each Region Completed 03/27/2023 28801 Therapy Proc, Neuromuscular Reeducation Of Movement Completed 03/27/2023 28574 Therapy Proc 1/> Area 15Min Ea Completed 03/25/2023 36890 Manual Movie Producer 1/> Area 15 Min Each Region Completed 03/25/2023 55555 Therapy Proc, Neuromuscular Reeducation Of Movement Completed 03/25/2023 76899 Therapy Proc 1/> Area 15Min Ea Completed 03/22/2023 17555 Manual Movie Producer 1/> Area 15 Min Each Region Completed 03/22/2023 06839 Therapy Proc, Neuromuscular Reeducation Of Movement Completed 03/22/2023 99128 Therapy Proc 1/> Area 15Min Ea Completed 03/20/2023 28393 Therapy Proc, Neuromuscular Reeducation Of Movement Completed 03/20/2023 27923 Therapy Proc 1/> Area 15Min Ea Completed 03/20/2023 11316 Manual Movie Producer 1/> Area 15 Min Each Region Completed 03/18/2023 54020 Manual Movie Producer 1/> Area 15 Min Each Region Completed 03/18/2023 19339 Therapy Proc, Neuromuscular Reeducation Of Movement Completed 03/18/2023 87675 Therapy Proc 1/> Area 15Min Ea Completed 03/15/2023 59324 Manual Movie Producer 1/> Area 15 Min Each Region Completed 03/15/2023 17769 Therapy Proc, Neuromuscular Reeducation Of Movement Completed 03/15/2023 05950 Therapy Proc 1/> Area 15Min Ea Completed 03/13/2023 21047 Physical Therapy Evaluation Moderate Complexity Completed 03/13/2023 20867 Manual Movie Producer 1/> Area 15 Min Each Region Completed 03/13/2023 27437 Therapy Proc 1/> Area 15Min Ea Completed 02/18/2023 41501 Venipuncture Routine Complet ed Medical Devices Description No Information Available Encounters Type Date Location Provider Dx Diagnosis Office Visit 02/22/2023 10:30a [place] Dawson Almodovar, DO I10 Essential (pr imary) hypertension 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 F41.1 Generalized anxiety disorder M15.0 Primary generalized (osteo)arthritis Assessments Date Code Description Provider 07/01/2023 R26.2 Difficulty in [place], not elsewhere classified Aki Garcia, GABRIELLET 07/01/2023 M25.511 Pain in right shoulder Oziel [...] wa lking, not elsewhere classified GABRIELLE EspinozaT 06/19/2023 M25.511 Pain in right shoulder Oziel [...] I10 Essential (primary) hyperten vickie [facility] - [place] 02/18/2023 E55.9 Vitamin D deficiency, unspec ified Dawson Almodovar, DO 02/18/2023 E55.9 Vitamin D deficiency, unspec ified Lab - [place] 02/18/2023 E53.8 Deficiency of ot her specified B group vitamins Dawson Almodovar, DO 02/18/2023 E53.8 Deficiency of ot her specified B group vitamins Lab - [place] Plan of Treatment Future Appointment(s):* 09/06/2023 10:30 am - Dawson Almodovar DO at [place] * 08/28/2023 10:30 am - [facility] - [facility] at [place] Functional Status Description No Information Available Mental Status Description No Information Available Referrals Description No Information Available"
--- OUTSIDE RECORDS SUMMARY | 2023-10-11 13:18 | External Medical Summary | Continuity of Care Document ---
Author Name AKI GARCIA DPT Address [address] [facility], [address] [place] [id number] Phone [phone] Organization [facility], Address [address] [place] [address] Phone [phone] Problems Active Problems Provider Date Essential hypertension [...] SIG Qnty Indications Order ing Provider Date [id number] Tablets 2 tablets by mouth every day 30tabs R60.0 Dawson Almodovar DO 10/05/2022 Multi + [place]-3 Adult GummiesChewtabs 1 by mouth every day Dawson Almodovar DO 08/08/2022 Vitamin B ComplexTablets 1 by mouth every day Dawson Almodovar DO 08/08/2022 Losartan Potassium/Hydrochlorothi -15yi Tablets 1 by mouth every day 90tabs I10 Dawson Almodovar, DO 03/21/2020 Juice Plus Fibre` Dawson Almodovar, DO 02/19/2018 Aspirin Adult Low Uxur66oa Tablets DR 1 by mouth every day Unknown Citalopram Hicdvisgoejn32vz Tablets 1 by mouth every day 90tabs F41.1 Dawson Almodovar, DO Vitamin D3 Maximum [id number] (5000 Ut) Capsules 1 by mouth once daily Unknown Immunizations CPT Code Status Date Vaccine Lot # [id number] Given 07/14/2009 Pneumococcal Vaccine/Pneu movax 23 [id number] Refused 10/19/2022 Shingrix [id number] Refused 08/08/2022 Pneumococcal Conjugate-Pr evnar 20 [id number] Refused 08/08/2022 Influenza Vac, Split, Preservative Free High Dose Age 65 & > 26733 Refused 04/20/2022 Moderna Sars-Co v-2 (Cov-19) vacc,100 mcg/ 0.5 mL 12Y+EMR Doc Only 43280 Refused 10/16/2021 Influenza Virus Vaccine, Quadrivalent (Cciiv4), Derived From Cell 76821 Refused 10/16/2021 Shingrix 41788 Refused 10/16/2021 Pneumococcal Conjugate-Pr evnar 13 30453 Refused 03/20/2021 Pfizer Sars-Cov -2 (Cov-19) vacc 30mcg/0.3ML 12Y+ EMR Doc Only 61577 Refused 04/17/2019 Influenza Vacci ne, Inactivated, Subunit, Adjuvanted, For Intrmusc 44689 Refused 01/29/2019 Tdap (Tetanus, diphtheria & acel. pertussis) Adacel or Boostrix 23349 Refused 01/29/2019 Pneumococcal Conjugate-Pr evnar 13 Vital [...] H/L Range N ote CBC W/Diff 02/18/2023 [facility]. [address] [place] [address] [phone] WBC 7.6 10^3/M3 3.1-9.2 RBC 4.19 10^6/M3 3.70-5.50 HGB 12.2 GR/DL 11.5-16.1 HCT 36.6 % 34.5-47.8 MCV 87.5 CUMICR 82.6-95.8 MCH 29.1 PICOGR 27.9-32.9 MCHC 33.3 % 32.6-35.4 RDW 14.9 % High 11.4-14.6 PLT 225 10^3/M3 140-350 MPV 8.8 CUMICR 7.0-10.6 %Neut 57.1 % 40.0-75.0 %Lymph 29.4 % 17.0-45.0 %[place] 8.6 % 1.0-11.0 %Eos 3.8 % 0.0-6.0 %Baso 1.1 % 0.0-2.0 #Neut 4.4 10^3/M3 1.5-8.0 #Lymph 2.2 10^3/M3 0.8-3.2 #[place] 0.7 10^3/M3 0.0-0.8 #Eos 0.3 10^3/m3 0.0-0.4 #Baso 0.1 10^3/m3 0.0-0.2 Comp. Met 02/18/2023 [facility] [address] [place], [place] [id number] [phone] Glucose 96 mg/dL 70-110 BUN 18 mg/dL [...] 2.0-3.4 GFR 72 ML/MIN/1.73SQM >60 Lipid 02/18/2023 [facility] [address] [place] [address] [phone] Cholesterol 164 mg/dL 0-200 1 Triglyceride 79 mg/dL 0-150 2 HDLD 62 mg/dL See Comment 3 Measured LDL 99 mg/dL 0-130 4 Calc VLDL 15.8 mg/dL See Comment 5 Chol/HDL 2.6 RATIO See Comment 6 Non-HDL 102 mg/dL See Comment 7 Laboratory test finding 02/18/2023 [facility] [address] [place] [address] [phone] Vitd-25Oh 77 ng/mL 30-100 VB12 411 pg/mL [...] Target Procedures Date Code Description Status 07/15/2023 48858 Manual Ingredient Scaler Helper 1/> Area 15 Min Each Region Completed 07/15/2023 46897 Therapy Proc, Neuromuscular Reeducation Of Movement Completed 07/15/2023 05545 Hot/Cold Pack Completed 07/15/2023 04084 Therapeutic Activities Direc t, Each 15 Minutes Completed 07/12/2023 06605 Therapeutic Activities Direc t, Each 15 Minutes Completed 07/12/2023 28346 Manual Ingredient Scaler Helper 1/> Area 15 Min Each Region Completed 07/12/2023 73156 Therapy Proc, Neuromuscular Reeducation Of Movement Completed 07/12/2023 44838 Therapy Proc 1/> Area 15Min Ea Completed 07/12/2023 58078 Hot/Cold Pack Completed 07/10/2023 73494 Hot/Cold Pack Completed 07/10/2023 20658 Therapy Proc 1/> Area 15Min Ea Completed 07/10/2023 31672 Therapy Proc, Neuromuscular Reeducation Of Movement Completed 07/10/2023 21930 Manual Ingredient Scaler Helper 1/> Area 15 Min Each Region Completed 07/10/2023 23985 Therapeutic Activities Direc t, Each 15 Minutes Completed 07/08/2023 69802 Therapeutic Activities Direc t, Each 15 Minutes Completed 07/08/2023 13781 Manual Ingredient Scaler Helper 1/> Area 15 Min Each Region Completed 07/08/2023 41430 Therapy Proc, Neuromuscular Reeducation Of Movement Completed 07/08/2023 47299 Therapy Proc 1/> Area 15Min Ea Completed 07/08/2023 74963 Hot/Cold Pack Completed 07/05/2023 54368 Therapeutic Activities Direc t, Each 15 Minutes Completed 07/05/2023 28376 Manual Ingredient Scaler Helper 1/> Area 15 Min Each Region Completed 07/05/2023 58187 Therapy Proc, Neuromuscular Reeducation Of Movement Completed 07/05/2023 83541 Therapy Proc 1/> Area 15Min Ea Completed 07/05/2023 46483 Hot/Cold Pack Completed 07/03/2023 08824 Manual Ingredient Scaler Helper 1/> Area 15 Min Each Region Completed 07/03/2023 98228 Hot/Cold Pack Completed 07/03/2023 27017 Therapy Proc 1/> Area 15Min Ea Completed 07/03/2023 84926 Therapy Proc, Neuromuscular Reeducation Of Movement Completed 07/03/2023 27298 Therapeutic Activities Direc t, Each 15 Minutes Completed 07/01/2023 41051 Manual Ingredient Scaler Helper 1/> Area 15 Min Each Region Completed 07/01/2023 66869 Therapy Proc, Neuromuscular Reeducation Of Movement Completed 07/01/2023 97412 Therapy Proc 1/> Area 15Min Ea Completed 07/01/2023 57712 Hot/Cold Pack Completed 07/01/2023 53521 Therapeutic Activities Direc t, Each 15 Minutes Completed 06/28/2023 67150 Therapeutic Activities Direc t, Each 15 Minutes Completed 06/28/2023 91657 Manual Ingredient Scaler Helper 1/> Area 15 Min Each Region Completed 06/28/2023 76764 Therapy Proc, Neuromuscular Reeducation Of Movement Completed 06/28/2023 67489 Therapy Proc 1/> Area 15Min Ea Completed 06/24/2023 52534 Manual Ingredient Scaler Helper 1/> Area 15 Min Each Region Completed 06/24/2023 23130 Hot/Cold Pack Completed 06/24/2023 70297 Therapy Proc 1/> Area 15Min Ea Completed 06/24/2023 02239 Therapy Proc, Neuromuscular Reeducation Of Movement Completed 06/24/2023 15005 Therapeutic Activities Direc t, Each 15 Minutes Completed 06/21/2023 96824 Therapeutic Activities Direc t, Each 15 Minutes Completed 06/21/2023 70829 Manual Ingredient Scaler Helper 1/> Area 15 Min Each Region Completed 06/21/2023 55927 Therapy Proc, Neuromuscular Reeducation Of Movement Completed 06/21/2023 96054 Therapy Proc 1/> Area 15Min Ea Completed 06/21/2023 38364 Hot/Cold Pack Completed 06/19/2023 26784 Hot/Cold Pack Completed 06/19/2023 58087 Therapy Proc 1/> Area 15Min Ea Completed 06/19/2023 65158 Therapy Proc, Neuromuscular Reeducation Of Movement Completed 06/19/2023 55336 Therapeutic Activities Direc t, Each 15 Minutes Completed 06/19/2023 04190 Manual Ingredient Scaler Helper 1/> Area 15 Min Each Region Completed 06/17/2023 58639 Therapeutic Activities Direc t, Each 15 Minutes Completed 06/17/2023 31803 Manual Ingredient Scaler Helper 1/> Area 15 Min Each Region Completed 06/17/2023 41461 Therapy Proc, Neuromuscular Reeducation Of Movement Completed 06/17/2023 46791 Therapy Proc 1/> Area 15Min Ea Completed 06/17/2023 11540 Hot/Cold Pack Completed 06/14/2023 79571 Therapeutic Activities Direc t, Each 15 Minutes Completed 06/14/2023 91460 Manual Ingredient Scaler Helper 1/> Area 15 Min Each Region Completed 06/14/2023 99092 Therapy Proc, Neuromuscular Reeducation Of Movement Completed 06/14/2023 25818 Therapy Proc 1/> Area 15Min Ea Completed 06/14/2023 12244 Hot/Cold Pack Completed 06/12/2023 04455 Therapy Proc 1/> Area 15Min Ea Completed 06/12/2023 32411 Hot/Cold Pack Completed 06/12/2023 42361 Therapy Proc, Neuromuscular Reeducation Of Movement Completed 06/12/2023 24863 Manual Ingredient Scaler Helper 1/> Area 15 Min Each Region Completed 06/12/2023 80103 Therapeutic Activities Direc t, Each 15 Minutes Completed 06/07/2023 43692 Therapeutic Activities Direc t, Each 15 Minutes Completed 06/07/2023 30001 Manual Ingredient Scaler Helper 1/> Area 15 Min Each Region Completed 06/07/2023 96908 Therapy Proc, Neuromuscular Reeducation Of Movement Completed 06/07/2023 05437 Therapy Proc 1/> Area 15Min Ea Completed 06/05/2023 97610 Therapeutic Activities Direc t, Each 15 Minutes Completed 06/05/2023 32400 Manual Ingredient Scaler Helper 1/> Area 15 Min Each Region Completed 06/05/2023 30666 Therapy Proc, Neuromuscular Reeducation Of Movement Completed 06/05/2023 31501 Therapy Proc 1/> Area 15Min Ea Completed 06/05/2023 07806 Hot/Cold Pack Completed 06/03/2023 61776 Therapeutic Activities Direc t, Each 15 Minutes Completed 06/03/2023 96799 Hot/Cold Pack Completed 06/03/2023 09426 Therapy Proc 1/> Area 15Min Ea Completed 06/03/2023 70519 Manual Ingredient Scaler Helper 1/> Area 15 Min Each Region Completed 06/03/2023 15284 Therapy Proc, Neuromuscular Reeducation Of Movement Completed 05/31/2023 15801 Therapeutic Activities Direc t, Each 15 Minutes Completed 05/31/2023 76840 Manual Ingredient Scaler Helper 1/> Area 15 Min Each Region Completed 05/31/2023 47745 Therapy Proc, Neuromuscular Reeducation Of Movement Completed 05/31/2023 28119 Hot/Cold Pack Completed 05/29/2023 44118 Therapeutic Activities Direc t, Each 15 Minutes Completed 05/29/2023 93337 Therapeutic Procedure Group Completed 05/29/2023 07897 Manual Ingredient Scaler Helper 1/> Area 15 Min Each Region Completed 05/29/2023 21091 Therapy Proc, Neuromuscular Reeducation Of Movement Completed 05/29/2023 26931 Hot/Cold Pack Completed 05/27/2023 13738 Therapeutic Activities Direc t, Each 15 Minutes Completed 05/27/2023 60124 Hot/Cold Pack Completed 05/27/2023 89725 Therapy Proc, Neuromuscular Reeducation Of Movement Completed 05/27/2023 55958 Manual Ingredient Scaler Helper 1/> Area 15 Min Each Region Completed 05/27/2023 38048 Therapeutic Procedure Group Completed 05/24/2023 54907 Therapeutic Activities Direc t, Each 15 Minutes Completed 05/24/2023 73311 Manual Ingredient Scaler Helper 1/> Area 15 Min Each Region Completed 05/24/2023 82189 Therapy Proc, Neuromuscular Reeducation Of Movement Completed 05/24/2023 62193 Therapy Proc 1/> Area 15Min Ea Completed 05/24/2023 93030 Hot/Cold Pack Completed 05/22/2023 88956 Therapy Proc 1/> Area 15Min Ea Completed 05/22/2023 87440 Hot/Cold Pack Completed 05/22/2023 38286 Manual Ingredient Scaler Helper 1/> Area 15 Min Each Region Completed 05/22/2023 05699 Therapy Proc, Neuromuscular Reeducation Of Movement Completed 05/22/2023 61051 Therapeutic Activities Direc t, Each 15 Minutes Completed 05/20/2023 77866 Therapeutic Activities Direc t, Each 15 Minutes Completed 05/20/2023 31952 Manual Ingredient Scaler Helper 1/> Area 15 Min Each Region Completed 05/20/2023 50846 Therapy Proc, Neuromuscular Reeducation Of Movement Completed 05/20/2023 38083 Therapy Proc 1/> Area 15Min Ea Completed 05/20/2023 23288 Hot/Cold Pack Completed 05/17/2023 19604 Therapeutic Activities Direc t, Each 15 Minutes Completed 05/17/2023 00498 Manual Ingredient Scaler Helper 1/> Area 15 Min Each Region Completed 05/17/2023 37095 Therapy Proc, Neuromuscular Reeducation Of Movement Completed 05/17/2023 51680 Therapy Proc 1/> Area 15Min Ea Completed 05/17/2023 86685 Hot/Cold Pack Completed 05/15/2023 21017 Therapy Proc 1/> Area 15Min Ea Completed 05/15/2023 46384 Hot/Cold Pack Completed 05/15/2023 08138 Therapy Proc, Neuromuscular Reeducation Of Movement Completed 05/15/2023 76517 Manual Ingredient Scaler Helper 1/> Area 15 Min Each Region Completed 05/15/2023 53038 Therapeutic Activities Direc t, Each 15 Minutes Completed 2023 48499 Therapeutic Activities Direc t, Each 15 Minutes Completed 2023 17383 Manual Ingredient Scaler Helper 1/> Area 15 Min Each Region Completed 2023 25431 Therapy Proc, Neuromuscular Reeducation Of Movement Completed 2023 22529 Therapy Proc 1/> Area 15Min Ea Completed 2023 80464 Hot/Cold Pack Completed 05/10/2023 76381 Therapeutic Activities Direc t, Each 15 Minutes Completed 05/10/2023 56215 Manual Ingredient Scaler Helper 1/> Area 15 Min Each Region Completed 05/10/2023 71175 Therapy Proc, Neuromuscular Reeducation Of Movement Completed 05/10/2023 20955 Therapy Proc 1/> Area 15Min Ea Completed 05/10/2023 12275 Hot/Cold Pack Completed 05/08/2023 15159 Therapeutic Activities Direc t, Each 15 Minutes Completed 05/08/2023 61128 Hot/Cold Pack Completed 05/08/2023 54835 Therapy Proc 1/> Area 15Min Ea Completed 05/08/2023 47489 Manual Ingredient Scaler Helper 1/> Area 15 Min Each Region Completed 05/08/2023 40837 Therapy Proc, Neuromuscular Reeducation Of Movement Completed 05/06/2023 05696 Therapeutic Activities Direc t, Each 15 Minutes Completed 05/06/2023 37735 Manual Ingredient Scaler Helper 1/> Area 15 Min Each Region Completed 05/06/2023 88448 Therapy Proc, Neuromuscular Reeducation Of Movement Completed 05/06/2023 72606 Therapy Proc 1/> Area 15Min Ea Completed 05/06/2023 48761 Hot/Cold Pack Completed 05/02/2023 73914 Therapeutic Activities Direc t, Each 15 Minutes Completed 05/02/2023 22728 Manual Ingredient Scaler Helper 1/> Area 15 Min Each Region Completed 05/02/2023 38719 Therapy Proc, Neuromuscular Reeducation Of Movement Completed 05/02/2023 27841 Therapy Proc 1/> Area 15Min Ea Completed 04/30/2023 36219 Therapy Proc, Neuromuscular Reeducation Of Movement Completed 04/30/2023 46800 Hot/Cold Pack Completed 04/30/2023 64068 Therapy Proc 1/> Area 15Min Ea Completed 04/30/2023 16769 Manual Ingredient Scaler Helper 1/> Area 15 Min Each Region Completed 04/24/2023 85330 Manual Ingredient Scaler Helper 1/> Area 15 Min Each Region Completed 04/24/2023 67950 Therapy Proc, Neuromuscular Reeducation Of Movement Completed 04/24/2023 51883 Therapy Proc 1/> Area 15Min Ea Completed 04/22/2023 91397 Manual Ingredient Scaler Helper 1/> Area 15 Min Each Region Completed 04/22/2023 81123 Therapy Proc, Neuromuscular Reeducation Of Movement Completed 04/22/2023 15916 Therapy Proc 1/> Area 15Min Ea Completed 04/22/2023 38128 Hot/Cold Pack Completed 04/19/2023 90042 Hot/Cold Pack Completed 04/19/2023 31377 Therapy Proc, Neuromuscular Reeducation Of Movement Completed 04/19/2023 11179 Manual Ingredient Scaler Helper 1/> Area 15 Min Each Region Completed 04/19/2023 26019 Therapy Proc 1/> Area 15Min Ea Completed 04/18/2023 51667 Therapy Proc, Neuromuscular Reeducation Of Movement Completed 04/18/2023 55291 Therapy Proc 1/> Area 15Min Ea Completed 04/18/2023 67277 Manual Ingredient Scaler Helper 1/> Area 15 Min Each Region Completed 04/15/2023 38152 Manual Ingredient Scaler Helper 1/> Area 15 Min Each Region Completed 04/15/2023 96503 Therapy Proc, Neuromuscular Reeducation Of Movement Completed 04/15/2023 54793 Therapy Proc 1/> Area 15Min Ea Completed 04/15/2023 61101 Hot/Cold Pack Completed 04/12/2023 89933 Manual Ingredient Scaler Helper 1/> Area 15 Min Each Region Completed 04/12/2023 32251 Therapy Proc, Neuromuscular Reeducation Of Movement Completed 04/12/2023 35989 Therapy Proc 1/> Area 15Min Ea Completed 04/12/2023 42540 Hot/Cold Pack Completed 04/10/2023 08522 Therapy Proc, Neuromuscular Reeducation Of Movement Completed 04/10/2023 54854 Therapy Proc 1/> Area 15Min Ea Completed 04/10/2023 53806 Manual Ingredient Scaler Helper 1/> Area 15 Min Each Region Completed 04/08/2023 35840 Manual Ingredient Scaler Helper 1/> Area 15 Min Each Region Completed 04/08/2023 66125 Therapy Proc, Neuromuscular Reeducation Of Movement Completed 04/08/2023 61899 Therapy Proc 1/> Area 15Min Ea Completed 04/05/2023 30830 Manual Ingredient Scaler Helper 1/> Area 15 Min Each Region Completed 04/05/2023 91568 Therapy Proc, Neuromuscular Reeducation Of Movement Completed 04/05/2023 66634 Therapy Proc 1/> Area 15Min Ea Completed 04/03/2023 98028 Manual Ingredient Scaler Helper 1/> Area 15 Min Each Region Completed 04/03/2023 72801 Therapy Proc, Neuromuscular Reeducation Of Movement Completed 04/03/2023 11474 Therapy Proc 1/> Area 15Min Ea Completed 04/01/2023 26206 Therapy Proc 1/> Area 15Min Ea Completed 04/01/2023 38482 Therapy Proc, Neuromuscular Reeducation Of Movement Completed 04/01/2023 66203 Manual Ingredient Scaler Helper 1/> Area 15 Min Each Region Completed 03/29/2023 57143 Manual Ingredient Scaler Helper 1/> Area 15 Min Each Region Completed 03/29/2023 53429 Therapy Proc, Neuromuscular Reeducation Of Movement Completed 03/29/2023 70709 Therapy Proc 1/> Area 15Min Ea Completed 03/27/2023 59275 Manual Ingredient Scaler Helper 1/> Area 15 Min Each Region Completed 03/27/2023 74886 Therapy Proc, Neuromuscular Reeducation Of Movement Completed 03/27/2023 93821 Therapy Proc 1/> Area 15Min Ea Completed 03/25/2023 65112 Manual Ingredient Scaler Helper 1/> Area 15 Min Each Region Completed 03/25/2023 25317 Therapy Proc, Neuromuscular Reeducation Of Movement Completed 03/25/2023 99750 Therapy Proc 1/> Area 15Min Ea Completed 03/22/2023 67497 Manual Ingredient Scaler Helper 1/> Area 15 Min Each Region Completed 03/22/2023 40797 Therapy Proc, Neuromuscular Reeducation Of Movement Completed 03/22/2023 67666 Therapy Proc 1/> Area 15Min Ea Completed 03/20/2023 32015 Manual Ingredient Scaler Helper 1/> Area 15 Min Each Region Completed 03/20/2023 88876 Therapy Proc 1/> Area 15Min Ea Completed 03/20/2023 06801 Therapy Proc, Neuromuscular Reeducation Of Movement Completed 03/18/2023 20140 Manual Ingredient Scaler Helper 1/> Area 15 Min Each Region Completed 03/18/2023 09980 Therapy Proc, Neuromuscular Reeducation Of Movement Completed 03/18/2023 89182 Therapy Proc 1/> Area 15Min Ea Completed 03/15/2023 94454 Manual Ingredient Scaler Helper 1/> Area 15 Min Each Region Completed 03/15/2023 62479 Therapy Proc, Neuromuscular Reeducation Of Movement Completed 03/15/2023 56514 Therapy Proc 1/> Area 15Min Ea Completed 03/13/2023 77966 Physical Therapy Evaluation Moderate Complexity Completed 03/13/2023 61218 Manual Ingredient Scaler Helper 1/> Area 15 Min Each Region Completed 03/13/2023 02926 Therapy Proc 1/> Area 15Min Ea Completed 02/18/2023 72515 Venipuncture Routine Complet ed Medical Devices Description No Information Available Encounters Type Date Location Provider Dx Diagnosis Office Visit 02/22/2023 10:30a [place] Dawson Almodovar, DO I10 Essential (pr imary) [...] Difficulty in wa lking, not elsewhere classified [facility], DPT 03/13/2023 M25.511 Pain in right [...] I10 Essential (primary) [facility] [place] 02/18/2023 E55.9 Vitamin D deficiency, unspec ified Dawson Almodovar, DO 02/18/2023 E55.9 Vitamin D deficiency, unspec ified Lab - [place] 02/18/2023 E53.8 Deficiency of ot her specified B group vitamins Dawson Almodovar, 02/18/2023 E53.8 Deficiency of ot her specified B group vitamins Lab - [place] Plan of Treatment Future Appointment(s):* 09/06/2023 10:30 am - Dawson Almodovar DO at [place] * 08/28/2023 10:30 [place] Status Description No Information Available Mental Status Description No Information Available Referrals Description No Information Available"
--- OUTSIDE RECORDS SUMMARY | 2023-10-11 13:19 | External Medical Summary | Continuity of Care Document ---
Author Name AKI GARCIA DPT Address [address] [facility], [address] [place] [id number] Phone [phone] Organization [facility], Address [address] [place] [address] Phone [phone] Problems Active Problems Provider Date Essential hypertension [...] SIG Qnty Indications Order ing Provider Date [id number] Tablets 2 tablets by mouth every day 30tabs R60.0 Dawson Almodovar DO 10/05/2022 Multi + [place]-3 Adult GummiesChewtabs 1 by mouth every day Dawson Almodovar DO 08/08/2022 Vitamin B ComplexTablets 1 by mouth every day Dawson Almodovar DO 08/08/2022 Losartan Potassium/Hydrochlorothi [id number] Tablets 1 by mouth every day 90tabs I10 Dawson Almodovar, DO 03/21/2020 Juice Plus Fibre` Dawson Almodovar, DO 02/19/2018 Aspirin Adult Low Wivk29al Tablets DR 1 by mouth every day Unknown Citalopram [id number] Tablets 1 by mouth every day 90tabs F41.1 Dawson Almodovar, DO Vitamin D3 Maximum [id number] (5000 Ut) Capsules 1 by mouth once daily Unknown Immunizations CPT Code Status Date Vaccine Lot # [id number] Given 07/14/2009 Pneumococcal Vaccine/Pneu movax 23 55343 Refused 10/19/2022 Shingrix 49679 Refused 08/08/2022 Pneumococcal Conjugate-Pr evnar 20 14187 Refused 08/08/2022 Influenza Vac, Split, Preservative Free High Dose Age 65 & > [address] Refused 04/20/2022 Moderna Sars-Co v-2 (Cov-19) vacc,100 mcg/ 0.5 mL 12Y+EMR Doc Only 25439 Refused 10/16/2021 Influenza Virus Vaccine, Quadrivalent (Cciiv4), Derived From Cell 40888 Refused 10/16/2021 Shingrix 12700 Refused 10/16/2021 Pneumococcal Conjugate-Pr evnar 13 44514 Refused 03/20/2021 Pfizer Sars-Cov -2 (Cov-19) vacc 30mcg/0.3ML 12Y+ EMR Doc Only 05416 Refused 04/17/2019 Influenza Vacci ne, Inactivated, Subunit, Adjuvanted, For Intrmusc 29500 Refused 01/29/2019 Tdap (Tetanus, diphtheria & acel. pertussis) Adacel or Boostrix 29625 Refused 01/29/2019 Pneumococcal Conjugate-Pr evnar 13 Vital [...] H/L Range N ote CBC W/Diff 02/18/2023 [facility]. [address] [place] [address] [phone] WBC 7.6 10^3/M3 3.1-9.2 RBC 4.19 10^6/M3 3.70-5.50 HGB 12.2 GR/DL 11.5-16.1 HCT 36.6 % 34.5-47.8 MCV 87.5 CUMICR 82.6-95.8 MCH 29.1 PICOGR 27.9-32.9 MCHC 33.3 % 32.6-35.4 RDW 14.9 % High 11.4-14.6 PLT 225 10^3/M3 140-350 MPV 8.8 CUMICR 7.0-10.6 %Neut 57.1 % 40.0-75.0 %Lymph 29.4 % 17.0-45.0 %[place] 8.6 % 1.0-11.0 %Eos 3.8 % 0.0-6.0 %Baso 1.1 % 0.0-2.0 #Neut 4.4 10^3/M3 1.5-8.0 #Lymph 2.2 10^3/M3 0.8-3.2 #[place] 0.7 10^3/M3 0.0-0.8 #Eos 0.3 10^3/m3 0.0-0.4 #Baso 0.1 10^3/m3 0.0-0.2 Comp. Met 02/18/2023 [facility]. [address] [place], [place] [id number] [phone] Glucose 96 mg/dL 70-110 BUN 18 mg/dL [...] 2.0-3.4 GFR 72 ML/MIN/1.73SQM >60 Lipid 02/18/2023 [facility]. [address] [place] [address] [phone] Cholesterol 164 mg/dL 0-200 1 Triglyceride 79 mg/dL 0-150 2 HDLD 62 mg/dL See Comment 3 Measured LDL 99 mg/dL 0-130 4 Calc VLDL 15.8 mg/dL See Comment 5 Chol/HDL 2.6 RATIO See Comment 6 Non-HDL 102 mg/dL See Comment 7 Laboratory test finding 02/18/2023 [facility]. [address] [place] [address] [phone] Vitd-25Oh 77 ng/mL 30-100 VB12 411 pg/mL [...] Target Procedures Date Code Description Status 07/01/2023 40268 Manual Char Puller 1/> Area 15 Min Each Region Completed 07/01/2023 41171 Therapy Proc, Neuromuscular Reeducation Of Movement Completed 07/01/2023 21479 Therapy Proc 1/> Area 15Min Ea Completed 07/01/2023 62694 Hot/Cold Pack Completed 07/01/2023 11658 Therapeutic Activities Direc t, Each 15 Minutes Completed 06/28/2023 76162 Therapeutic Activities Direc t, Each 15 Minutes Completed 06/28/2023 91022 Manual Char Puller 1/> Area 15 Min Each Region Completed 06/28/2023 95073 Therapy Proc, Neuromuscular Reeducation Of Movement Completed 06/28/2023 77370 Therapy Proc 1/> Area 15Min Ea Completed 06/24/2023 72610 Manual Char Puller 1/> Area 15 Min Each Region Completed 06/24/2023 92147 Hot/Cold Pack Completed 06/24/2023 92115 Therapy Proc 1/> Area 15Min Ea Completed 06/24/2023 32742 Therapy Proc, Neuromuscular Reeducation Of Movement Completed 06/24/2023 21927 Therapeutic Activities Direc t, Each 15 Minutes Completed 06/21/2023 41256 Therapeutic Activities Direc t, Each 15 Minutes Completed 06/21/2023 86396 Manual Char Puller 1/> Area 15 Min Each Region Completed 06/21/2023 70448 Therapy Proc, Neuromuscular Reeducation Of Movement Completed 06/21/2023 41820 Therapy Proc 1/> Area 15Min Ea Completed 06/21/2023 94558 Hot/Cold Pack Completed 06/19/2023 29001 Hot/Cold Pack Completed 06/19/2023 15653 Therapy Proc 1/> Area 15Min Ea Completed 06/19/2023 59882 Manual Char Puller 1/> Area 15 Min Each Region Completed 06/19/2023 46686 Therapeutic Activities Direc t, Each 15 Minutes Completed 06/19/2023 35592 Therapy Proc, Neuromuscular Reeducation Of Movement Completed 06/17/2023 56956 Therapeutic Activities Direc t, Each 15 Minutes Completed 06/17/2023 00148 Manual Char Puller 1/> Area 15 Min Each Region Completed 06/17/2023 95619 Therapy Proc, Neuromuscular Reeducation Of Movement Completed 06/17/2023 59912 Therapy Proc 1/> Area 15Min Ea Completed 06/17/2023 69382 Hot/Cold Pack Completed 06/14/2023 05789 Hot/Cold Pack Completed 06/14/2023 56394 Therapy Proc 1/> Area 15Min Ea Completed 06/14/2023 16579 Therapy Proc, Neuromuscular Reeducation Of Movement Completed 06/14/2023 42037 Manual Char Puller 1/> Area 15 Min Each Region Completed 06/14/2023 10971 Therapeutic Activities Direc t, Each 15 Minutes Completed 06/12/2023 22567 Therapeutic Activities Direc t, Each 15 Minutes Completed 06/12/2023 41330 Manual Char Puller 1/> Area 15 Min Each Region Completed 06/12/2023 24948 Therapy Proc, Neuromuscular Reeducation Of Movement Completed 06/12/2023 42565 Therapy Proc 1/> Area 15Min Ea Completed 06/12/2023 90885 Hot/Cold Pack Completed 06/07/2023 29649 Therapeutic Activities Direc t, Each 15 Minutes Completed 06/07/2023 77108 Manual Char Puller 1/> Area 15 Min Each Region Completed 06/07/2023 54284 Therapy Proc, Neuromuscular Reeducation Of Movement Completed 06/07/2023 83595 Therapy Proc 1/> Area 15Min Ea Completed 06/05/2023 46706 Manual Char Puller 1/> Area 15 Min Each Region Completed 06/05/2023 06010 Hot/Cold Pack Completed 06/05/2023 05728 Therapy Proc 1/> Area 15Min Ea Completed 06/05/2023 29574 Therapy Proc, Neuromuscular Reeducation Of Movement Completed 06/05/2023 72792 Therapeutic Activities Direc t, Each 15 Minutes Completed 06/03/2023 73932 Manual Char Puller 1/> Area 15 Min Each Region Completed 06/03/2023 84068 Therapy Proc, Neuromuscular Reeducation Of Movement Completed 06/03/2023 06905 Therapy Proc 1/> Area 15Min Ea Completed 06/03/2023 48868 Hot/Cold Pack Completed 06/03/2023 63530 Therapeutic Activities Direc t, Each 15 Minutes Completed 05/31/2023 12976 Therapeutic Activities Direc t, Each 15 Minutes Completed 05/31/2023 67836 Manual Char Puller 1/> Area 15 Min Each Region Completed 05/31/2023 02725 Therapy Proc, Neuromuscular Reeducation Of Movement Completed 05/31/2023 75963 Hot/Cold Pack Completed 05/29/2023 33772 Manual Char Puller 1/> Area 15 Min Each Region Completed 05/29/2023 15649 Hot/Cold Pack Completed 05/29/2023 74993 Therapy Proc, Neuromuscular Reeducation Of Movement Completed 05/29/2023 39149 Therapeutic Procedure Group Completed 05/29/2023 92512 Therapeutic Activities Direc t, Each 15 Minutes Completed 05/27/2023 51579 Therapeutic Activities Direc t, Each 15 Minutes Completed 05/27/2023 41633 Therapeutic Procedure Group Completed 05/27/2023 25329 Manual Char Puller 1/> Area 15 Min Each Region Completed 05/27/2023 96004 Therapy Proc, Neuromuscular Reeducation Of Movement Completed 05/27/2023 79781 Hot/Cold Pack Completed 05/24/2023 40292 Manual Char Puller 1/> Area 15 Min Each Region Completed 05/24/2023 24761 Hot/Cold Pack Completed 05/24/2023 33660 Therapy Proc 1/> Area 15Min Ea Completed 05/24/2023 02273 Therapeutic Activities Direc t, Each 15 Minutes Completed 05/24/2023 74389 Therapy Proc, Neuromuscular Reeducation Of Movement Completed 05/22/2023 58470 Therapeutic Activities Direc t, Each 15 Minutes Completed 05/22/2023 61787 Manual Char Puller 1/> Area 15 Min Each Region Completed 05/22/2023 67456 Therapy Proc, Neuromuscular Reeducation Of Movement Completed 05/22/2023 99151 Therapy Proc 1/> Area 15Min Ea Completed 05/22/2023 62523 Hot/Cold Pack Completed 05/20/2023 78857 Therapy Proc, Neuromuscular Reeducation Of Movement Completed 05/20/2023 04767 Hot/Cold Pack Completed 05/20/2023 78449 Therapy Proc 1/> Area 15Min Ea Completed 05/20/2023 38270 Manual Char Puller 1/> Area 15 Min Each Region Completed 05/20/2023 01256 Therapeutic Activities Direc t, Each 15 Minutes Completed 05/17/2023 64650 Therapeutic Activities Direc t, Each 15 Minutes Completed 05/17/2023 54937 Manual Char Puller 1/> Area 15 Min Each Region Completed 05/17/2023 13940 Therapy Proc, Neuromuscular Reeducation Of Movement Completed 05/17/2023 01394 Therapy Proc 1/> Area 15Min Ea Completed 05/17/2023 18058 Hot/Cold Pack Completed 05/15/2023 75478 Therapy Proc 1/> Area 15Min Ea Completed 05/15/2023 93701 Hot/Cold Pack Completed 05/15/2023 02417 Manual Char Puller 1/> Area 15 Min Each Region Completed 05/15/2023 86660 Therapy Proc, Neuromuscular Reeducation Of Movement Completed 05/15/2023 32197 Therapeutic Activities Direc t, Each 15 Minutes Completed 2023 36801 Therapeutic Activities Direc t, Each 15 Minutes Completed 2023 64204 Hot/Cold Pack Completed 2023 79093 Therapy Proc 1/> Area 15Min Ea Completed 2023 57687 Manual Char Puller 1/> Area 15 Min Each Region Completed 2023 73055 Therapy Proc, Neuromuscular Reeducation Of Movement Completed 05/10/2023 75492 Therapeutic Activities Direc t, Each 15 Minutes Completed 05/10/2023 03263 Manual Char Puller 1/> Area 15 Min Each Region Completed 05/10/2023 28239 Therapy Proc, Neuromuscular Reeducation Of Movement Completed 05/10/2023 37692 Therapy Proc 1/> Area 15Min Ea Completed 05/10/2023 03045 Hot/Cold Pack Completed 05/08/2023 55989 Therapy Proc, Neuromuscular Reeducation Of Movement Completed 05/08/2023 88896 Hot/Cold Pack Completed 05/08/2023 95949 Therapy Proc 1/> Area 15Min Ea Completed 05/08/2023 61142 Manual Char Puller 1/> Area 15 Min Each Region Completed 05/08/2023 18809 Therapeutic Activities Direc t, Each 15 Minutes Completed 05/06/2023 11041 Therapeutic Activities Direc t, Each 15 Minutes Completed 05/06/2023 12246 Manual Char Puller 1/> Area 15 Min Each Region Completed 05/06/2023 00079 Therapy Proc, Neuromuscular Reeducation Of Movement Completed 05/06/2023 07929 Therapy Proc 1/> Area 15Min Ea Completed 05/06/2023 63763 Hot/Cold Pack Completed 05/02/2023 44290 Therapy Proc 1/> Area 15Min Ea Completed 05/02/2023 15152 Manual Char Puller 1/> Area 15 Min Each Region Completed 05/02/2023 60549 Therapeutic Activities Direc t, Each 15 Minutes Completed 05/02/2023 87129 Therapy Proc, Neuromuscular Reeducation Of Movement Completed 04/30/2023 08556 Manual Char Puller 1/> Area 15 Min Each Region Completed 04/30/2023 15865 Therapy Proc, Neuromuscular Reeducation Of Movement Completed 04/30/2023 76244 Therapy Proc 1/> Area 15Min Ea Completed 04/30/2023 53786 Hot/Cold Pack Completed 04/24/2023 31725 Manual Char Puller 1/> Area 15 Min Each Region Completed 04/24/2023 05077 Therapy Proc, Neuromuscular Reeducation Of Movement Completed 04/24/2023 02764 Therapy Proc 1/> Area 15Min Ea Completed 04/22/2023 89463 Therapy Proc 1/> Area 15Min Ea Completed 04/22/2023 26812 Hot/Cold Pack Completed 04/22/2023 30512 Therapy Proc, Neuromuscular Reeducation Of Movement Completed 04/22/2023 75964 Manual Char Puller 1/> Area 15 Min Each Region Completed 04/19/2023 01667 Manual Char Puller 1/> Area 15 Min Each Region Completed 04/19/2023 20089 Therapy Proc, Neuromuscular Reeducation Of Movement Completed 04/19/2023 59242 Therapy Proc 1/> Area 15Min Ea Completed 04/19/2023 85543 Hot/Cold Pack Completed 04/18/2023 30484 Manual Char Puller 1/> Area 15 Min Each Region Completed 04/18/2023 74416 Therapy Proc, Neuromuscular Reeducation Of Movement Completed 04/18/2023 79117 Therapy Proc 1/> Area 15Min Ea Completed 04/15/2023 43843 Hot/Cold Pack Completed 04/15/2023 99276 Therapy Proc, Neuromuscular Reeducation Of Movement Completed 04/15/2023 20092 Manual Char Puller 1/> Area 15 Min Each Region Completed 04/15/2023 57034 Therapy Proc 1/> Area 15Min Ea Completed 04/12/2023 88924 Therapy Proc, Neuromuscular Reeducation Of Movement Completed 04/12/2023 82435 Therapy Proc 1/> Area 15Min Ea Completed 04/12/2023 34952 Hot/Cold Pack Completed 04/12/2023 18778 Manual Char Puller 1/> Area 15 Min Each Region Completed 04/10/2023 16047 Manual Char Puller 1/> Area 15 Min Each Region Completed 04/10/2023 36724 Therapy Proc, Neuromuscular Reeducation Of Movement Completed 04/10/2023 17605 Therapy Proc 1/> Area 15Min Ea Completed 04/08/2023 91796 Manual Char Puller 1/> Area 15 Min Each Region Completed 04/08/2023 97501 Therapy Proc, Neuromuscular Reeducation Of Movement Completed 04/08/2023 89335 Therapy Proc 1/> Area 15Min Ea Completed 04/05/2023 70673 Manual Char Puller 1/> Area 15 Min Each Region Completed 04/05/2023 53164 Therapy Proc 1/> Area 15Min Ea Completed 04/05/2023 46315 Therapy Proc, Neuromuscular Reeducation Of Movement Completed 04/03/2023 61637 Manual Char Puller 1/> Area 15 Min Each Region Completed 04/03/2023 03976 Therapy Proc, Neuromuscular Reeducation Of Movement Completed 04/03/2023 27883 Therapy Proc 1/> Area 15Min Ea Completed 04/01/2023 53670 Manual Char Puller 1/> Area 15 Min Each Region Completed 04/01/2023 93175 Therapy Proc, Neuromuscular Reeducation Of Movement Completed 04/01/2023 31344 Therapy Proc 1/> Area 15Min Ea Completed 03/29/2023 65218 Therapy Proc 1/> Area 15Min Ea Completed 03/29/2023 55049 Manual Char Puller 1/> Area 15 Min Each Region Completed 03/29/2023 56700 Therapy Proc, Neuromuscular Reeducation Of Movement Completed 03/27/2023 51355 Manual Char Puller 1/> Area 15 Min Each Region Completed 03/27/2023 95874 Therapy Proc, Neuromuscular Reeducation Of Movement Completed 03/27/2023 16859 Therapy Proc 1/> Area 15Min Ea Completed 03/25/2023 40525 Manual Char Puller 1/> Area 15 Min Each Region Completed 03/25/2023 78693 Therapy Proc, Neuromuscular Reeducation Of Movement Completed 03/25/2023 45588 Therapy Proc 1/> Area 15Min Ea Completed 03/22/2023 58771 Manual Char Puller 1/> Area 15 Min Each Region Completed 03/22/2023 07980 Therapy Proc, Neuromuscular Reeducation Of Movement Completed 03/22/2023 74475 Therapy Proc 1/> Area 15Min Ea Completed 03/20/2023 75408 Therapy Proc, Neuromuscular Reeducation Of Movement Completed 03/20/2023 82869 Therapy Proc 1/> Area 15Min Ea Completed 03/20/2023 37097 Manual Char Puller 1/> Area 15 Min Each Region Completed 03/18/2023 00752 Manual Char Puller 1/> Area 15 Min Each Region Completed 03/18/2023 60114 Therapy Proc, Neuromuscular Reeducation Of Movement Completed 03/18/2023 95192 Therapy Proc 1/> Area 15Min Ea Completed 03/15/2023 17990 Manual Char Puller 1/> Area 15 Min Each Region Completed 03/15/2023 16548 Therapy Proc, Neuromuscular Reeducation Of Movement Completed 03/15/2023 17020 Therapy Proc 1/> Area 15Min Ea Completed 03/13/2023 11134 Physical Therapy Evaluation Moderate Complexity Completed 03/13/2023 81448 Manual Char Puller 1/> Area 15 Min Each Region Completed 03/13/2023 65132 Therapy Proc 1/> Area 15Min Ea Completed 02/18/2023 78745 Venipuncture Routine Complet ed Medical Devices Description No Information Available Encounters Type Date Location Provider Dx Diagnosis Office Visit 02/22/2023 10:30a [facility] Dawson Almodovar, DO I10 Essential (pr imary) [...] I10 Essential (primary) hyperten vickie [facility] - [facility] 02/18/2023 E55.9 Vitamin D deficiency, unspec ified Dawson Almodovar, DO 02/18/2023 E55.9 Vitamin D deficiency, unspec ified Lab - [facility] 02/18/2023 E53.8 Deficiency of ot her specified B group vitamins Dawson Almodovar, DO 02/18/2023 E53.8 Deficiency of ot her specified B group vitamins Lab - [facility] Plan of Treatment Future Appointment(s):* 09/06/2023 10:30 am - Dawson Almodovar DO at [facility] * 08/28/2023 10:30 am - [facility] at [facility] Functional Status Description No Information Available Mental Status Description No Information Available Referrals Description No Information Available"
--- OUTSIDE RECORDS SUMMARY | 2023-10-11 13:19 | External Medical Summary | Continuity of Care Document ---
Author Name AKI GARCIA DPT Address [facility], [address] [place] [id number] Phone [phone] [facility], Address [address] [place] [address] Phone [phone] Problems Active Problems Provider Date Essential hypertension [...] SIG Qnty Indications Order ing Provider Date Tmdfqstyou20fk Tablets 2 tablets by mouth every day 30tabs R60.0 Dawson Almodovar DO 10/05/2022 Multi + [place]-3 Adult GummiesChewtabs 1 by mouth every day Dawson Almodovar DO 08/08/2022 Vitamin B ComplexTablets 1 by mouth every day Dawson Almodovar DO 08/08/2022 Losartan Potassium/Hydrochlorothi -47pu Tablets 1 by mouth every day 90tabs I10 Dawson Almodovar, DO 03/21/2020 Juice Plus Fibre` Dawson Almodovar, DO 02/19/2018 Aspirin Adult Low Uocw40vr Tablets DR 1 by mouth every day Unknown Citalopram Ylvkrnfpdcvm09iy Tablets 1 by mouth every day 90tabs F41.1 Dawson Almodovar, DO Vitamin D3 Maximum Xeyrxcgj709kml (5000 Ut) Capsules 1 by mouth once daily Unknown Immunizations CPT Code Status Date Vaccine Lot # [id number] Given 07/14/2009 Pneumococcal Vaccine/Pneu movax 23 [id number] Refused 10/19/2022 Shingrix 83932 Refused 08/08/2022 Pneumococcal Conjugate-Pr evnar 20 21981 Refused 08/08/2022 Influenza Vac, Split, Preservative Free High Dose Age 65 & > [address] Refused 04/20/2022 Moderna Sars-Co v-2 (Cov-19) vacc,100 mcg/ 0.5 mL 12Y+EMR Doc Only 13942 Refused 10/16/2021 Influenza Virus Vaccine, Quadrivalent (Cciiv4), Derived From Cell 53136 Refused 10/16/2021 Shingrix 94016 Refused 10/16/2021 Pneumococcal Conjugate-Pr evnar 13 92423 Refused 03/20/2021 Pfizer Sars-Cov -2 (Cov-19) vacc 30mcg/0.3ML 12Y+ EMR Doc Only 76710 Refused 04/17/2019 Influenza Vacci ne, Inactivated, Subunit, Adjuvanted, For Intrmusc 35891 Refused 01/29/2019 Tdap (Tetanus, diphtheria & acel. pertussis) Adacel or Boostrix 20656 Refused 01/29/2019 Pneumococcal Conjugate-Pr evnar 13 Vital [...] Range N ote CBC W/Diff 02/18/2023 [facility] [address] [place] [address] [phone] WBC 7.6 10^3/M3 3.1-9.2 RBC 4.19 10^6/M3 3.70-5.50 HGB 12.2 GR/DL 11.5-16.1 HCT 36.6 % 34.5-47.8 MCV 87.5 CUMICR 82.6-95.8 MCH 29.1 PICOGR 27.9-32.9 MCHC 33.3 % 32.6-35.4 RDW 14.9 % High 11.4-14.6 PLT 225 10^3/M3 140-350 MPV 8.8 CUMICR 7.0-10.6 %Neut 57.1 % 40.0-75.0 %Lymph 29.4 % 17.0-45.0 %[place] 8.6 % 1.0-11.0 %Eos 3.8 % 0.0-6.0 %Baso 1.1 % 0.0-2.0 #Neut 4.4 10^3/M3 1.5-8.0 #Lymph 2.2 10^3/M3 0.8-3.2 #[place] 0.7 10^3/M3 0.0-0.8 #Eos 0.3 10^3/m3 0.0-0.4 #Baso 0.1 10^3/m3 0.0-0.2 Comp. Met 02/18/2023 [facility] [address] [place], [place] [id number] [phone] Glucose 96 mg/dL 70-110 BUN 18 mg/dL [...] GFR 72 ML/MIN/1.73SQM >60 Lipid 02/18/2023 [facility] [address] [place] [address] [phone] Cholesterol 164 mg/dL 0-200 1 Triglyceride 79 mg/dL 0-150 2 HDLD 62 mg/dL See Comment 3 Measured LDL 99 mg/dL 0-130 4 Calc VLDL 15.8 mg/dL See Comment 5 Chol/HDL 2.6 RATIO See Comment 6 Non-HDL 102 mg/dL See Comment 7 Laboratory test finding 02/18/2023 [facility] [address] [place] [address] [phone] Vitd-25Oh 77 ng/mL 30-100 VB12 411 pg/mL [...] LDL Target Procedures Date Code Description Status 06/17/2023 63480 Manual Dry Cell Tester 1/> Area 15 Min Each Region Completed 06/17/2023 19753 Therapy Proc, Neuromuscular Reeducation Of Movement Completed 06/17/2023 70049 Therapy Proc 1/> Area 15Min Ea Completed 06/17/2023 90344 Hot/Cold Pack Completed 06/17/2023 98395 Therapeutic Activities Direc t, Each 15 Minutes Completed 06/14/2023 69515 Therapeutic Activities Direc t, Each 15 Minutes Completed 06/14/2023 18895 Manual Dry Cell Tester 1/> Area 15 Min Each Region Completed 06/14/2023 89255 Therapy Proc, Neuromuscular Reeducation Of Movement Completed 06/14/2023 35755 Therapy Proc 1/> Area 15Min Ea Completed 06/14/2023 06105 Hot/Cold Pack Completed 06/12/2023 26428 Manual Dry Cell Tester 1/> Area 15 Min Each Region Completed 06/12/2023 01666 Hot/Cold Pack Completed 06/12/2023 26272 Therapy Proc 1/> Area 15Min Ea Completed 06/12/2023 97607 Therapy Proc, Neuromuscular Reeducation Of Movement Completed 06/12/2023 77975 Therapeutic Activities Direc t, Each 15 Minutes Completed 06/07/2023 54056 Therapeutic Activities Direc t, Each 15 Minutes Completed 06/07/2023 67256 Manual Dry Cell Tester 1/> Area 15 Min Each Region Completed 06/07/2023 27892 Therapy Proc, Neuromuscular Reeducation Of Movement Completed 06/07/2023 58289 Therapy Proc 1/> Area 15Min Ea Completed 06/05/2023 35707 Manual Dry Cell Tester 1/> Area 15 Min Each Region Completed 06/05/2023 72484 Hot/Cold Pack Completed 06/05/2023 27708 Therapy Proc 1/> Area 15Min Ea Completed 06/05/2023 73385 Therapy Proc, Neuromuscular Reeducation Of Movement Completed 06/05/2023 89300 Therapeutic Activities Direc t, Each 15 Minutes Completed 06/03/2023 86727 Therapeutic Activities Direc t, Each 15 Minutes Completed 06/03/2023 37735 Manual Dry Cell Tester 1/> Area 15 Min Each Region Completed 06/03/2023 29631 Therapy Proc, Neuromuscular Reeducation Of Movement Completed 06/03/2023 05602 Therapy Proc 1/> Area 15Min Ea Completed 06/03/2023 13491 Hot/Cold Pack Completed 05/31/2023 14298 Therapeutic Activities Direc t, Each 15 Minutes Completed 05/31/2023 97508 Manual Dry Cell Tester 1/> Area 15 Min Each Region Completed 05/31/2023 02907 Therapy Proc, Neuromuscular Reeducation Of Movement Completed 05/31/2023 83795 Hot/Cold Pack Completed 05/29/2023 96489 Therapeutic Activities Direc t, Each 15 Minutes Completed 05/29/2023 95720 Therapeutic Procedure Group Completed 05/29/2023 03050 Manual Dry Cell Tester 1/> Area 15 Min Each Region Completed 05/29/2023 24561 Therapy Proc, Neuromuscular Reeducation Of Movement Completed 05/29/2023 31093 Hot/Cold Pack Completed 05/27/2023 64531 Therapy Proc, Neuromuscular Reeducation Of Movement Completed 05/27/2023 49303 Hot/Cold Pack Completed 05/27/2023 57195 Manual Dry Cell Tester 1/> Area 15 Min Each Region Completed 05/27/2023 47206 Therapeutic Procedure Group Completed 05/27/2023 00301 Therapeutic Activities Direc t, Each 15 Minutes Completed 05/24/2023 66576 Therapeutic Activities Direc t, Each 15 Minutes Completed 05/24/2023 18267 Manual Dry Cell Tester 1/> Area 15 Min Each Region Completed 05/24/2023 05251 Therapy Proc, Neuromuscular Reeducation Of Movement Completed 05/24/2023 92290 Therapy Proc 1/> Area 15Min Ea Completed 05/24/2023 76193 Hot/Cold Pack Completed 05/22/2023 30667 Therapy Proc, Neuromuscular Reeducation Of Movement Completed 05/22/2023 34036 Hot/Cold Pack Completed 05/22/2023 80400 Therapy Proc 1/> Area 15Min Ea Completed 05/22/2023 83717 Manual Dry Cell Tester 1/> Area 15 Min Each Region Completed 05/22/2023 27810 Therapeutic Activities Direc t, Each 15 Minutes Completed 05/20/2023 69819 Therapeutic Activities Direc t, Each 15 Minutes Completed 05/20/2023 78792 Manual Dry Cell Tester 1/> Area 15 Min Each Region Completed 05/20/2023 62654 Therapy Proc, Neuromuscular Reeducation Of Movement Completed 05/20/2023 84082 Therapy Proc 1/> Area 15Min Ea Completed 05/20/2023 67690 Hot/Cold Pack Completed 05/17/2023 44878 Therapy Proc 1/> Area 15Min Ea Completed 05/17/2023 20575 Hot/Cold Pack Completed 05/17/2023 56023 Therapy Proc, Neuromuscular Reeducation Of Movement Completed 05/17/2023 06798 Therapeutic Activities Direc t, Each 15 Minutes Completed 05/17/2023 40166 Manual Dry Cell Tester 1/> Area 15 Min Each Region Completed 05/15/2023 95599 Therapeutic Activities Direc t, Each 15 Minutes Completed 05/15/2023 52760 Manual Dry Cell Tester 1/> Area 15 Min Each Region Completed 05/15/2023 80905 Therapy Proc, Neuromuscular Reeducation Of Movement Completed 05/15/2023 30578 Therapy Proc 1/> Area 15Min Ea Completed 05/15/2023 34233 Hot/Cold Pack Completed 2023 75142 Therapy Proc, Neuromuscular Reeducation Of Movement Completed 2023 68364 Hot/Cold Pack Completed 2023 95408 Therapy Proc 1/> Area 15Min Ea Completed 2023 89065 Manual Dry Cell Tester 1/> Area 15 Min Each Region Completed 2023 38681 Therapeutic Activities Direc t, Each 15 Minutes Completed 05/10/2023 23246 Therapeutic Activities Direc t, Each 15 Minutes Completed 05/10/2023 92823 Manual Dry Cell Tester 1/> Area 15 Min Each Region Completed 05/10/2023 52810 Therapy Proc, Neuromuscular Reeducation Of Movement Completed 05/10/2023 96196 Therapy Proc 1/> Area 15Min Ea Completed 05/10/2023 40308 Hot/Cold Pack Completed 05/08/2023 86739 Therapy Proc 1/> Area 15Min Ea Completed 05/08/2023 75057 Hot/Cold Pack Completed 05/08/2023 29535 Manual Dry Cell Tester 1/> Area 15 Min Each Region Completed 05/08/2023 18420 Therapeutic Activities Direc t, Each 15 Minutes Completed 05/08/2023 86056 Therapy Proc, Neuromuscular Reeducation Of Movement Completed 05/06/2023 30774 Manual Dry Cell Tester 1/> Area 15 Min Each Region Completed 05/06/2023 11857 Therapeutic Activities Direc t, Each 15 Minutes Completed 05/06/2023 19113 Hot/Cold Pack Completed 05/06/2023 59862 Therapy Proc 1/> Area 15Min Ea Completed 05/06/2023 42090 Therapy Proc, Neuromuscular Reeducation Of Movement Completed 05/02/2023 35567 Therapeutic Activities Direc t, Each 15 Minutes Completed 05/02/2023 37475 Manual Dry Cell Tester 1/> Area 15 Min Each Region Completed 05/02/2023 36773 Therapy Proc, Neuromuscular Reeducation Of Movement Completed 05/02/2023 93969 Therapy Proc 1/> Area 15Min Ea Completed 04/30/2023 40082 Manual Dry Cell Tester 1/> Area 15 Min Each Region Completed 04/30/2023 86297 Therapy Proc, Neuromuscular Reeducation Of Movement Completed 04/30/2023 48272 Therapy Proc 1/> Area 15Min Ea Completed 04/30/2023 33262 Hot/Cold Pack Completed 04/24/2023 00451 Manual Dry Cell Tester 1/> Area 15 Min Each Region Completed 04/24/2023 36244 Therapy Proc, Neuromuscular Reeducation Of Movement Completed 04/24/2023 34697 Therapy Proc 1/> Area 15Min Ea Completed 04/22/2023 31696 Hot/Cold Pack Completed 04/22/2023 67995 Therapy Proc 1/> Area 15Min Ea Completed 04/22/2023 78187 Manual Dry Cell Tester 1/> Area 15 Min Each Region Completed 04/22/2023 55884 Therapy Proc, Neuromuscular Reeducation Of Movement Completed 04/19/2023 64495 Manual Dry Cell Tester 1/> Area 15 Min Each Region Completed 04/19/2023 48397 Therapy Proc, Neuromuscular Reeducation Of Movement Completed 04/19/2023 79712 Therapy Proc 1/> Area 15Min Ea Completed 04/19/2023 09892 Hot/Cold Pack Completed 04/18/2023 74755 Manual Dry Cell Tester 1/> Area 15 Min Each Region Completed 04/18/2023 44272 Therapy Proc, Neuromuscular Reeducation Of Movement Completed 04/18/2023 27346 Therapy Proc 1/> Area 15Min Ea Completed 04/15/2023 26509 Manual Dry Cell Tester 1/> Area 15 Min Each Region Completed 04/15/2023 12814 Hot/Cold Pack Completed 04/15/2023 66370 Therapy Proc 1/> Area 15Min Ea Completed 04/15/2023 79370 Therapy Proc, Neuromuscular Reeducation Of Movement Completed 04/12/2023 13250 Manual Dry Cell Tester 1/> Area 15 Min Each Region Completed 04/12/2023 56880 Therapy Proc, Neuromuscular Reeducation Of Movement Completed 04/12/2023 94406 Therapy Proc 1/> Area 15Min Ea Completed 04/12/2023 72362 Hot/Cold Pack Completed 04/10/2023 70594 Therapy Proc 1/> Area 15Min Ea Completed 04/10/2023 58636 Therapy Proc, Neuromuscular Reeducation Of Movement Completed 04/10/2023 97868 Manual Dry Cell Tester 1/> Area 15 Min Each Region Completed 04/08/2023 92207 Manual Dry Cell Tester 1/> Area 15 Min Each Region Completed 04/08/2023 79482 Therapy Proc, Neuromuscular Reeducation Of Movement Completed 04/08/2023 31550 Therapy Proc 1/> Area 15Min Ea Completed 04/05/2023 40842 Manual Dry Cell Tester 1/> Area 15 Min Each Region Completed 04/05/2023 24333 Therapy Proc, Neuromuscular Reeducation Of Movement Completed 04/05/2023 13383 Therapy Proc 1/> Area 15Min Ea Completed 04/03/2023 35232 Manual Dry Cell Tester 1/> Area 15 Min Each Region Completed 04/03/2023 73786 Therapy Proc, Neuromuscular Reeducation Of Movement Completed 04/03/2023 64218 Therapy Proc 1/> Area 15Min Ea Completed 04/01/2023 85736 Manual Dry Cell Tester 1/> Area 15 Min Each Region Completed 04/01/2023 43204 Therapy Proc 1/> Area 15Min Ea Completed 04/01/2023 97146 Therapy Proc, Neuromuscular Reeducation Of Movement Completed 03/29/2023 11199 Manual Dry Cell Tester 1/> Area 15 Min Each Region Completed 03/29/2023 48392 Therapy Proc, Neuromuscular Reeducation Of Movement Completed 03/29/2023 55662 Therapy Proc 1/> Area 15Min Ea Completed 03/27/2023 65828 Manual Dry Cell Tester 1/> Area 15 Min Each Region Completed 03/27/2023 02462 Therapy Proc, Neuromuscular Reeducation Of Movement Completed 03/27/2023 79169 Therapy Proc 1/> Area 15Min Ea Completed 03/25/2023 24802 Manual Dry Cell Tester 1/> Area 15 Min Each Region Completed 03/25/2023 35916 Therapy Proc 1/> Area 15Min Ea Completed 03/25/2023 12060 Therapy Proc, Neuromuscular Reeducation Of Movement Completed 03/22/2023 50513 Manual Dry Cell Tester 1/> Area 15 Min Each Region Completed 03/22/2023 92512 Therapy Proc, Neuromuscular Reeducation Of Movement Completed 03/22/2023 59338 Therapy Proc 1/> Area 15Min Ea Completed 03/20/2023 88637 Manual Dry Cell Tester 1/> Area 15 Min Each Region Completed 03/20/2023 69549 Therapy Proc, Neuromuscular Reeducation Of Movement Completed 03/20/2023 97382 Therapy Proc 1/> Area 15Min Ea Completed 03/18/2023 01979 Therapy Proc, Neuromuscular Reeducation Of Movement Completed 03/18/2023 99148 Therapy Proc 1/> Area 15Min Ea Completed 03/18/2023 78076 Manual Dry Cell Tester 1/> Area 15 Min Each Region Completed 03/15/2023 18208 Manual Dry Cell Tester 1/> Area 15 Min Each Region Completed 03/15/2023 92497 Therapy Proc, Neuromuscular Reeducation Of Movement Completed 03/15/2023 05126 Therapy Proc 1/> Area 15Min Ea Completed 03/13/2023 78382 Physical Therapy Evaluation Moderate Complexity Completed 03/13/2023 59752 Manual Dry Cell Tester 1/> Area 15 Min Each Region Completed 03/13/2023 81653 Therapy Proc 1/> Area 15Min Ea Completed 02/18/2023 08667 Venipuncture Routine Complet ed Medical Devices Description No Information Available Encounters Type Date Location Provider Dx Diagnosis Office Visit 02/22/2023 10:30a Jonatan Almodovar, I10 Essential (pr imary) hypertension 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 F41.1 Generalized anxiety disorder M15.0 Primary generalized (osteo)arthritis Assessments Date Code Description Provider 06/17/2023 R26.2 Difficulty in wa lking, not elsewhere classified GABRIELLE EspinozaT 06/17/2023 M25.511 Pain in right shoulder Oziel Garcia, DPT 06/14/2023 R26.2 Difficulty in wa lking, not elsewhere classified Aki Garcia DPT 06/14/2023 M25.511 Pain in right shoulder Oziel Garcia, DPT 06/12/2023 R26.2 Difficulty in wa [place]king, not elsewhere classified GABRIELLE EspinozaT 06/12/2023 M25.511 Pain in right shoulder Oziel Garcia, DPT 06/07/2023 R26.2 Difficulty in wa lking, not elsewhere classified Aki Garcia DPT 06/07/2023 M25.511 Pain in right shoulder Oziel Garcia, DPT 06/05/2023 R26.2 Difficulty in wa [place]king, not elsewhere classified Aki Garcia DPT 06/05/2023 M25.511 Pain in right shoulder [...] DPT 03/13/2023 M25.511 Pain in right shoulder Oizel Garcia, DPT 02/22/2023 I10 Essential (primary) hyperten vickie Dawson Almodovar, DO 02/22/2023 K21.9 Gastro-esophagea l reflux 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 Dawson Almodovar, DO 02/22/2023 F41.1 Generalized anxiety disorder Dawson Almodovar, DO 02/22/2023 M15.0 Primary generalized (osteo)a rthritis Dawson Almodovar, DO 02/18/2023 I10 Essential (primary) hyperten vickie Dawson Almodovar, DO 02/18/2023 I10 Essential (primary) hypertdania [facility] 02/18/2023 E55.9 Vitamin D deficiency, unspec ified Dawson Almodovar, DO 02/18/2023 E55.9 Vitamin D deficiency, unspec ified [facility] 02/18/2023 E53.8 Deficiency of ot her specified B group vitamins Dawson Almodovar, DO 02/18/2023 E53.8 Deficiency of ot her specified B group vitamins [facility] Plan of Treatment Future Appointment(s):* 09/06/2023 10:30 am - Dawson Almodovar DO at [facility] * 08/28/2023 10:30 am - [facility] Functional Status Description No Information Available Mental Status Description No Information Available Referrals Description No Information Available"
--- OUTSIDE RECORDS SUMMARY | 2023-10-11 13:19 | External Medical Summary ---
"Continuity of Care Document (CCD) Created on: July 03, 2023 Antonio Catrina Grant External Reference #: [id number] : [id number] Sex: Female Author Name AKI GARCIA DPT Address [address] [facility], [address] [place] [id number] Phone [phone] Organization [facility], Address [address] [place] [address] Phone [phone] Problems Active Problems Provider Date Essential hypertension [...] SIG Qnty Indications Order ing Provider Date [id number] Tablets 2 tablets by mouth every day 30tabs R60.0 Dawson Almodovar DO 10/05/2022 Multi + [place]-3 Adult GummiesChewtabs 1 by mouth every day Dawson Almodovar DO 08/08/2022 Vitamin B ComplexTablets 1 by mouth every day Dawson Almodovar DO 08/08/2022 Losartan Potassium/Hydrochlorothi [id number] Tablets 1 by mouth every day 90tabs I10 Dawson Almodovar, DO 03/21/2020 Juice Plus Fibre` Dawson Almodovar, DO 02/19/2018 Aspirin Adult Low Gbpr39sz Tablets DR 1 by mouth every day Unknown Citalopram Rbvetrjfdaxz77ej Tablets 1 by mouth every day 90tabs F41.1 Dawson Almodovar, DO Vitamin D3 Maximum [id number] (5000 Ut) Capsules 1 by mouth once daily Unknown Immunizations CPT Code Status Date Vaccine Lot # [id number] Given 07/14/2009 Pneumococcal Vaccine/Pneu movax 23 01999 Refused 10/19/2022 Shingrix 67191 Refused 08/08/2022 Pneumococcal Conjugate-Pr evnar 20 16522 Refused 08/08/2022 Influenza Vac, Split, Preservative Free High Dose Age 65 & > [address]3600 Refused 04/20/2022 Moderna Sars-Co v-2 (Cov-19) vacc,100 mcg/ 0.5 mL 12Y+EMR Doc Only 13217 Refused 10/16/2021 Influenza Virus Vaccine, Quadrivalent (Cciiv4), Derived From Cell 03173 Refused 10/16/2021 Shingrix 45020 Refused 10/16/2021 Pneumococcal Conjugate-Pr evnar 13 50817 Refused 03/20/2021 Pfizer Sars-Cov -2 (Cov-19) vacc 30mcg/0.3ML 12Y+ EMR Doc Only 43446 Refused 04/17/2019 Influenza Vacci ne, Inactivated, Subunit, Adjuvanted, For Intrmusc 89578 Refused 01/29/2019 Tdap (Tetanus, diphtheria & acel. pertussis) Adacel or Boostrix 84488 Refused 01/29/2019 Pneumococcal Conjugate-Pr evnar 13 Vital [...] H/L Range N ote CBC W/Diff 02/18/2023 [facility] [address] [place] [address] [phone] WBC 7.6 10^3/M3 3.1-9.2 RBC 4.19 10^6/M3 3.70-5.50 HGB 12.2 GR/DL 11.5-16.1 HCT 36.6 % 34.5-47.8 MCV 87.5 CUMICR 82.6-95.8 MCH 29.1 PICOGR 27.9-32.9 MCHC 33.3 % 32.6-35.4 RDW 14.9 % High 11.4-14.6 PLT 225 10^3/M3 140-350 MPV 8.8 CUMICR 7.0-10.6 %Neut 57.1 % 40.0-75.0 %Lymph 29.4 % 17.0-45.0 %[place] 8.6 % 1.0-11.0 %Eos 3.8 % 0.0-6.0 %[place] 1.1 % 0.0-2.0 #Neut 4.4 10^3/M3 1.5-8.0 #Lymph 2.2 10^3/M3 0.8-3.2 #[place] 0.7 10^3/M3 0.0-0.8 #Eos 0.3 10^3/m3 0.0-0.4 #Bas[place] 0.1 10^3/m3 0.0-0.2 Comp. Met 02/18/2023 [facility] [address] [place], [place] [id number] [phone] Glucose 96 mg/dL 70-110 BUN 18 mg/dL [...] 2.0-3.4 GFR 72 ML/MIN/1.73SQM >60 Lipid 02/18/2023 [facility] [address] [place] [address] [phone] Cholesterol 164 mg/dL 0-200 1 Triglyceride 79 mg/dL 0-150 2 HDLD 62 mg/dL See Comment 3 Measured LDL 99 mg/dL 0-130 4 Calc VLDL 15.8 mg/dL See Comment 5 Chol/HDL 2.6 RATIO See Comment 6 Non-HDL 102 mg/dL See Comment 7 Laboratory test finding 02/18/2023 [facility] [address] [place] [address] [phone] Vitd-25Oh 77 ng/mL 30-100 VB12 411 pg/mL [...] LDL Target Procedures Date Code Description Status 06/26/2023 05788 Manual Supervisor Pumping Station 1/> Area 15 Min Each Region Completed 06/26/2023 91863 Therapy Proc, Neuromuscular Reeducation Of Movement Completed 06/26/2023 50839 Therapy Proc 1/> Area 15Min Ea Completed 06/26/2023 06034 Hot/Cold Pack Completed 06/26/2023 92680 Therapeutic Activities Direc t, Each 15 Minutes Completed 06/24/2023 34584 Therapeutic Activities Direc t, Each 15 Minutes Completed 06/24/2023 58332 Manual Supervisor Pumping Station 1/> Area 15 Min Each Region Completed 06/24/2023 53816 Therapy Proc, Neuromuscular Reeducation Of Movement Completed 06/24/2023 56559 Therapy Proc 1/> Area 15Min Ea Completed 06/24/2023 14548 Hot/Cold Pack Completed 06/21/2023 84871 Manual Supervisor Pumping Station 1/> Area 15 Min Each Region Completed 06/21/2023 13862 Hot/Cold Pack Completed 06/21/2023 63346 Therapy Proc 1/> Area 15Min Ea Completed 06/21/2023 23962 Therapy Proc, Neuromuscular Reeducation Of Movement Completed 06/21/2023 84899 Therapeutic Activities Direc t, Each 15 Minutes Completed 06/19/2023 60719 Therapeutic Activities Direc t, Each 15 Minutes Completed 06/19/2023 71906 Manual Supervisor Pumping Station 1/> Area 15 Min Each Region Completed 06/19/2023 05387 Therapy Proc, Neuromuscular Reeducation Of Movement Completed 06/19/2023 03118 Therapy Proc 1/> Area 15Min Ea Completed 06/19/2023 23007 Hot/Cold Pack Completed 06/17/2023 90331 Therapy Proc 1/> Area 15Min Ea Completed 06/17/2023 52391 Hot/Cold Pack Completed 06/17/2023 59339 Therapy Proc, Neuromuscular Reeducation Of Movement Completed 06/17/2023 32257 Therapeutic Activities Direc t, Each 15 Minutes Completed 06/17/2023 52993 Manual Supervisor Pumping Station 1/> Area 15 Min Each Region Completed 06/14/2023 08814 Therapeutic Activities Direc t, Each 15 Minutes Completed 06/14/2023 97429 Manual Supervisor Pumping Station 1/> Area 15 Min Each Region Completed 06/14/2023 35759 Therapy Proc, Neuromuscular Reeducation Of Movement Completed 06/14/2023 27379 Therapy Proc 1/> Area 15Min Ea Completed 06/14/2023 79978 Hot/Cold Pack Completed 06/12/2023 13527 Hot/Cold Pack Completed 06/12/2023 91242 Therapy Proc 1/> Area 15Min Ea Completed 06/12/2023 03645 Therapy Proc, Neuromuscular Reeducation Of Movement Completed 06/12/2023 40022 Manual Supervisor Pumping Station 1/> Area 15 Min Each Region Completed 06/12/2023 47549 Therapeutic Activities Direc t, Each 15 Minutes Completed 06/07/2023 89884 Therapeutic Activities Direc t, Each 15 Minutes Completed 06/07/2023 97946 Manual Supervisor Pumping Station 1/> Area 15 Min Each Region Completed 06/07/2023 20513 Therapy Proc, Neuromuscular Reeducation Of Movement Completed 06/07/2023 64539 Therapy Proc 1/> Area 15Min Ea Completed 06/05/2023 25164 Therapeutic Activities Direc t, Each 15 Minutes Completed 06/05/2023 95645 Manual Supervisor Pumping Station 1/> Area 15 Min Each Region Completed 06/05/2023 53323 Therapy Proc, Neuromuscular Reeducation Of Movement Completed 06/05/2023 36663 Therapy Proc 1/> Area 15Min Ea Completed 06/05/2023 97878 Hot/Cold Pack Completed 06/03/2023 24312 Therapy Proc 1/> Area 15Min Ea Completed 06/03/2023 23434 Hot/Cold Pack Completed 06/03/2023 80288 Manual Supervisor Pumping Station 1/> Area 15 Min Each Region Completed 06/03/2023 70376 Therapy Proc, Neuromuscular Reeducation Of Movement Completed 06/03/2023 87812 Therapeutic Activities Direc t, Each 15 Minutes Completed 05/31/2023 47936 Manual Supervisor Pumping Station 1/> Area 15 Min Each Region Completed 05/31/2023 79834 Therapy Proc, Neuromuscular Reeducation Of Movement Completed 05/31/2023 70076 Hot/Cold Pack Completed 05/31/2023 41378 Therapeutic Activities Direc t, Each 15 Minutes Completed 05/29/2023 36562 Therapeutic Activities Direc t, Each 15 Minutes Completed 05/29/2023 81083 Therapeutic Procedure Group Completed 05/29/2023 69297 Manual Supervisor Pumping Station 1/> Area 15 Min Each Region Completed 05/29/2023 24299 Therapy Proc, Neuromuscular Reeducation Of Movement Completed 05/29/2023 50244 Hot/Cold Pack Completed 05/27/2023 47534 Manual Supervisor Pumping Station 1/> Area 15 Min Each Region Completed 05/27/2023 50100 Hot/Cold Pack Completed 05/27/2023 05781 Therapy Proc, Neuromuscular Reeducation Of Movement Completed 05/27/2023 85244 Therapeutic Procedure Group Completed 05/27/2023 40905 Therapeutic Activities Direc t, Each 15 Minutes Completed 05/24/2023 29037 Therapeutic Activities Direc t, Each 15 Minutes Completed 05/24/2023 82637 Manual Supervisor Pumping Station 1/> Area 15 Min Each Region Completed 05/24/2023 90198 Therapy Proc, Neuromuscular Reeducation Of Movement Completed 05/24/2023 11947 Therapy Proc 1/> Area 15Min Ea Completed 05/24/2023 41005 Hot/Cold Pack Completed 05/22/2023 20712 Manual Supervisor Pumping Station 1/> Area 15 Min Each Region Completed 05/22/2023 10602 Hot/Cold Pack Completed 05/22/2023 81395 Therapy Proc 1/> Area 15Min Ea Completed 05/22/2023 34504 Therapeutic Activities Direc t, Each 15 Minutes Completed 05/22/2023 78077 Therapy Proc, Neuromuscular Reeducation Of Movement Completed 05/20/2023 08510 Therapeutic Activities Direc t, Each 15 Minutes Completed 05/20/2023 69699 Manual Supervisor Pumping Station 1/> Area 15 Min Each Region Completed 05/20/2023 91905 Therapy Proc, Neuromuscular Reeducation Of Movement Completed 05/20/2023 18877 Therapy Proc 1/> Area 15Min Ea Completed 05/20/2023 02748 Hot/Cold Pack Completed 05/17/2023 20813 Therapy Proc, Neuromuscular Reeducation Of Movement Completed 05/17/2023 21447 Hot/Cold Pack Completed 05/17/2023 58631 Therapy Proc 1/> Area 15Min Ea Completed 05/17/2023 48763 Manual Supervisor Pumping Station 1/> Area 15 Min Each Region Completed 05/17/2023 33124 Therapeutic Activities Direc t, Each 15 Minutes Completed 05/15/2023 59486 Therapeutic Activities Direc t, Each 15 Minutes Completed 05/15/2023 74160 Manual Supervisor Pumping Station 1/> Area 15 Min Each Region Completed 05/15/2023 70995 Therapy Proc, Neuromuscular Reeducation Of Movement Completed 05/15/2023 16935 Therapy Proc 1/> Area 15Min Ea Completed 05/15/2023 29833 Hot/Cold Pack Completed 2023 05638 Therapy Proc 1/> Area 15Min Ea Completed 2023 63436 Hot/Cold Pack Completed 2023 44655 Manual Supervisor Pumping Station 1/> Area 15 Min Each Region Completed 2023 36336 Therapeutic Activities Direc t, Each 15 Minutes Completed 2023 86540 Therapy Proc, Neuromuscular Reeducation Of Movement Completed 05/10/2023 21417 Therapeutic Activities Direc t, Each 15 Minutes Completed 05/10/2023 59274 Manual Supervisor Pumping Station 1/> Area 15 Min Each Region Completed 05/10/2023 72270 Therapy Proc, Neuromuscular Reeducation Of Movement Completed 05/10/2023 29500 Therapy Proc 1/> Area 15Min Ea Completed 05/10/2023 49174 Hot/Cold Pack Completed 05/08/2023 58299 Hot/Cold Pack Completed 05/08/2023 66019 Therapy Proc 1/> Area 15Min Ea Completed 05/08/2023 31527 Therapy Proc, Neuromuscular Reeducation Of Movement Completed 05/08/2023 39689 Manual Supervisor Pumping Station 1/> Area 15 Min Each Region Completed 05/08/2023 58452 Therapeutic Activities Direc t, Each 15 Minutes Completed 05/06/2023 92039 Therapeutic Activities Direc t, Each 15 Minutes Completed 05/06/2023 90871 Manual Supervisor Pumping Station 1/> Area 15 Min Each Region Completed 05/06/2023 85405 Therapy Proc, Neuromuscular Reeducation Of Movement Completed 05/06/2023 91478 Therapy Proc 1/> Area 15Min Ea Completed 05/06/2023 62289 Hot/Cold Pack Completed 05/02/2023 76109 Therapeutic Activities Direc t, Each 15 Minutes Completed 05/02/2023 93969 Manual Supervisor Pumping Station 1/> Area 15 Min Each Region Completed 05/02/2023 40531 Therapy Proc, Neuromuscular Reeducation Of Movement Completed 05/02/2023 11673 Therapy Proc 1/> Area 15Min Ea Completed 04/30/2023 00934 Therapy Proc, Neuromuscular Reeducation Of Movement Completed 04/30/2023 32289 Hot/Cold Pack Completed 04/30/2023 58603 Therapy Proc 1/> Area 15Min Ea Completed 04/30/2023 36905 Manual Supervisor Pumping Station 1/> Area 15 Min Each Region Completed 04/24/2023 37193 Therapy Proc, Neuromuscular Reeducation Of Movement Completed 04/24/2023 48508 Therapy Proc 1/> Area 15Min Ea Completed 04/24/2023 81156 Manual Supervisor Pumping Station 1/> Area 15 Min Each Region Completed 04/22/2023 04751 Manual Supervisor Pumping Station 1/> Area 15 Min Each Region Completed 04/22/2023 22598 Therapy Proc, Neuromuscular Reeducation Of Movement Completed 04/22/2023 62225 Therapy Proc 1/> Area 15Min Ea Completed 04/22/2023 04033 Hot/Cold Pack Completed 04/19/2023 94946 Therapy Proc 1/> Area 15Min Ea Completed 04/19/2023 74610 Hot/Cold Pack Completed 04/19/2023 89364 Therapy Proc, Neuromuscular Reeducation Of Movement Completed 04/19/2023 54421 Manual Supervisor Pumping Station 1/> Area 15 Min Each Region Completed 04/18/2023 47690 Manual Supervisor Pumping Station 1/> Area 15 Min Each Region Completed 04/18/2023 87012 Therapy Proc, Neuromuscular Reeducation Of Movement Completed 04/18/2023 89890 Therapy Proc 1/> Area 15Min Ea Completed 04/15/2023 40781 Manual Supervisor Pumping Station 1/> Area 15 Min Each Region Completed 04/15/2023 59870 Therapy Proc, Neuromuscular Reeducation Of Movement Completed 04/15/2023 54699 Therapy Proc 1/> Area 15Min Ea Completed 04/15/2023 48719 Hot/Cold Pack Completed 04/12/2023 34186 Hot/Cold Pack Completed 04/12/2023 67734 Manual Supervisor Pumping Station 1/> Area 15 Min Each Region Completed 04/12/2023 43379 Therapy Proc, Neuromuscular Reeducation Of Movement Completed 04/12/2023 94518 Therapy Proc 1/> Area 15Min Ea Completed 04/10/2023 31018 Therapy Proc, Neuromuscular Reeducation Of Movement Completed 04/10/2023 23937 Therapy Proc 1/> Area 15Min Ea Completed 04/10/2023 95849 Manual Supervisor Pumping Station 1/> Area 15 Min Each Region Completed 04/08/2023 69577 Manual Supervisor Pumping Station 1/> Area 15 Min Each Region Completed 04/08/2023 45436 Therapy Proc, Neuromuscular Reeducation Of Movement Completed 04/08/2023 61204 Therapy Proc 1/> Area 15Min Ea Completed 04/05/2023 28514 Manual Supervisor Pumping Station 1/> Area 15 Min Each Region Completed 04/05/2023 87696 Therapy Proc, Neuromuscular Reeducation Of Movement Completed 04/05/2023 53356 Therapy Proc 1/> Area 15Min Ea Completed 04/03/2023 31156 Therapy Proc, Neuromuscular Reeducation Of Movement Completed 04/03/2023 31384 Therapy Proc 1/> Area 15Min Ea Completed 04/03/2023 52387 Manual Supervisor Pumping Station 1/> Area 15 Min Each Region Completed 04/01/2023 62821 Manual Supervisor Pumping Station 1/> Area 15 Min Each Region Completed 04/01/2023 14448 Therapy Proc, Neuromuscular Reeducation Of Movement Completed 04/01/2023 02208 Therapy Proc 1/> Area 15Min Ea Completed 03/29/2023 69228 Manual Supervisor Pumping Station 1/> Area 15 Min Each Region Completed 03/29/2023 51590 Therapy Proc, Neuromuscular Reeducation Of Movement Completed 03/29/2023 14388 Therapy Proc 1/> Area 15Min Ea Completed 03/27/2023 73167 Therapy Proc 1/> Area 15Min Ea Completed 03/27/2023 58851 Therapy Proc, Neuromuscular Reeducation Of Movement Completed 03/27/2023 91626 Manual Supervisor Pumping Station 1/> Area 15 Min Each Region Completed 03/25/2023 19763 Manual Supervisor Pumping Station 1/> Area 15 Min Each Region Completed 03/25/2023 90619 Therapy Proc, Neuromuscular Reeducation Of Movement Completed 03/25/2023 30719 Therapy Proc 1/> Area 15Min Ea Completed 03/22/2023 81554 Manual Supervisor Pumping Station 1/> Area 15 Min Each Region Completed 03/22/2023 19964 Therapy Proc, Neuromuscular Reeducation Of Movement Completed 03/22/2023 97933 Therapy Proc 1/> Area 15Min Ea Completed 03/20/2023 74427 Manual Supervisor Pumping Station 1/> Area 15 Min Each Region Completed 03/20/2023 45245 Therapy Proc, Neuromuscular Reeducation Of Movement Completed 03/20/2023 75682 Therapy Proc 1/> Area 15Min Ea Completed 03/18/2023 02345 Manual Supervisor Pumping Station 1/> Area 15 Min Each Region Completed 03/18/2023 77102 Therapy Proc 1/> Area 15Min Ea Completed 03/18/2023 06811 Therapy Proc, Neuromuscular Reeducation Of Movement Completed 03/15/2023 58023 Manual Supervisor Pumping Station 1/> Area 15 Min Each Region Completed 03/15/2023 19489 Therapy Proc, Neuromuscular Reeducation Of Movement Completed 03/15/2023 73483 Therapy Proc 1/> Area 15Min Ea Completed 03/13/2023 52404 Physical Therapy Evaluation Moderate Complexity Completed 03/13/2023 29530 Manual Supervisor Pumping Station 1/> Area 15 Min Each Region Completed 03/13/2023 22049 Therapy Proc 1/> Area 15Min Ea Completed 02/18/2023 04307 Venipuncture Routine Complet ed Medical Devices Description No Information Available Encounters Type Date Location Provider Dx Diagnosis Office Visit 02/22/2023 10:30a Jonatan Osman CintiaAlvin Almodovar, DO I10 Essential (pr imary) hypertension 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 F41.1 Generalized anxiety disorder M15.0 Primary generalized (osteo)arthritis Assessments Date Code Description Provider 06/26/2023 R26.2 Difficulty in wa lking, not elsewhere classified Aki Garcia, DPT 06/26/2023 M25.511 Pain in right shoulder Oziel Garcia, DPT 06/24/2023 R26.2 Difficulty in wa lking, not elsewhere classified Aki Garcia DPT 06/24/2023 M25.511 Pain in right shoulder [...] lking, not elsewhere classified Aki Garcia DPT 06/12/2023 M25.511 Pain in right shoulder Oziel Garcia, DPT 06/07/2023 R26.2 Difficulty in wa lking, not elsewhere classified Aki Garcia DPT 06/07/2023 M25.511 Pain in right shoulder Oziel Garcia, DPT 06/05/2023 R26.2 Difficulty in wa lking, not elsewhere classified GABRIELLE EspinozaT 06/05/2023 M25.511 Pain in right shoulder Oziel [...] Difficulty in wa lking, not elsewhere classified Tenriism Jose, DPT 03/15/2023 M25.511 Pain in right shoulder Oziel Garcia, DPT 03/13/2023 R26.2 Difficulty in wa lking, not elsewhere classified Tenriism Smith, DPT 03/13/2023 M25.511 Pain in right shoulder Oziel Garcia, DPT 02/22/2023 I10 Essential (primary) hyperten vickie Dawson Almodovar, DO 02/22/2023 K21.9 Gastro-esophagea l reflux 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 Dawson Almodovar, DO 02/22/2023 F41.1 Generalized anxiety disorder Dawson Almdoovar, DO 02/22/2023 M15.0 Primary generalized (osteo)a rthritis Dawson Almodovar, DO 02/18/2023 I10 Essential (primary) hyperten vickie Dawson Almodovar, DO 02/18/2023 I10 Essential (primary) hypertdania [facility] [place] 02/18/2023 E55.9 Vitamin D deficiency, unspec ified Dawson Almodovar, DO 02/18/2023 E55.9 Vitamin D deficiency, unspec ified [facility] - [place] 02/18/2023 E53.8 Deficiency of ot her specified B group vitamins Dawson Almodovar, DO 02/18/2023 E53.8 Deficiency of ot her specified B group vitamins [facility] - [place] Plan of Treatment Future Appointment(s):* 09/06/2023 10:30 am - Dawson Almodovar DO at [place] * 08/28/2023 10:30 am - [facility] [place] Functional Status Description No Information Available Mental Status Description No Information Available Referrals Description No Information Available"
--- OUTSIDE RECORDS SUMMARY | 2023-10-11 13:19 | External Medical Summary | Continuity of Care Document ---
Author Name AKI GARCIA DPT Address [address] [facility], [address] [place] [id number] Phone [phone] Organization [facility], Address [address] [place] [address] Phone [phone] Problems Active Problems Provider Date Essential hypertension [...] SIG Qnty Indications Order ing Provider Date Haukqxnppe87vd Tablets 2 tablets by mouth every day 30tabs R60.0 Dawson Almodovar DO 10/05/2022 Multi + [place]-3 Adult GummiesChewtabs 1 by mouth every day Dawson Almodovar DO 08/08/2022 Vitamin B ComplexTablets 1 by mouth every day Dawson Almodovar DO 08/08/2022 Losartan Potassium/Hydrochlorothi [id number] Tablets 1 by mouth every day 90tabs I10 Dawson Almodovar, DO 03/21/2020 Juice Plus Fibre` Dawson Almodovar, DO 02/19/2018 Aspirin Adult Low Toer58ug Tablets DR 1 by mouth every day Unknown Citalopram [id number] Tablets 1 by mouth every day 90tabs F41.1 Dawson Almodovar, DO Vitamin D3 Maximum [id number] (5000 Ut) Capsules 1 by mouth once daily Unknown Immunizations CPT Code Status Date Vaccine Lot # [id number] Given 07/14/2009 Pneumococcal Vaccine/Pneu movax 23 [id number] Refused 10/19/2022 Shingrix 57149 Refused 08/08/2022 Pneumococcal Conjugate-Pr evnar 20 45065 Refused 08/08/2022 Influenza Vac, Split, Preservative Free High Dose Age 65 & > [address] Refused 04/20/2022 Moderna Sars-Co v-2 (Cov-19) vacc,100 mcg/ 0.5 mL 12Y+EMR Doc Only [id number] Refused 10/16/2021 Influenza Virus Vaccine, Quadrivalent (Cciiv4), Derived From Cell 49017 Refused 10/16/2021 Shingrix 00546 Refused 10/16/2021 Pneumococcal Conjugate-Pr evnar 13 48625 Refused 03/20/2021 Pfizer Sars-Cov -2 (Cov-19) vacc 30mcg/0.3ML 12Y+ EMR Doc Only 26768 Refused 04/17/2019 Influenza Vacci ne, Inactivated, Subunit, Adjuvanted, For Intrmusc 16015 Refused 01/29/2019 Tdap (Tetanus, diphtheria & acel. pertussis) Adacel or Boostrix 75279 Refused 01/29/2019 Pneumococcal Conjugate-Pr evnar 13 Vital [...] 02/18/2023 [facility]. [address] [place] [address] [phone] WBC 7.6 10^3/M3 3.1-9.2 RBC 4.19 10^6/M3 3.70-5.50 HGB 12.2 GR/DL 11.5-16.1 HCT 36.6 % 34.5-47.8 MCV 87.5 CUMICR 82.6-95.8 MCH 29.1 PICOGR 27.9-32.9 MCHC 33.3 % 32.6-35.4 RDW 14.9 % High 11.4-14.6 PLT 225 10^3/M3 140-350 MPV 8.8 CUMICR 7.0-10.6 %Neut 57.1 % 40.0-75.0 %Lymph 29.4 % 17.0-45.0 %Troup 8.6 % 1.0-11.0 %Eos 3.8 % 0.0-6.0 %Baso 1.1 % 0.0-2.0 #Neut 4.4 10^3/M3 1.5-8.0 #Lymph 2.2 10^3/M3 0.8-3.2 #Troup 0.7 10^3/M3 0.0-0.8 #Eos 0.3 10^3/m3 0.0-0.4 #Baso 0.1 10^3/m3 0.0-0.2 Comp. Met 02/18/2023 [facility] [address] [place], [place] [id number] [phone] Glucose 96 mg/dL 70-110 BUN 18 mg/dL [...] 02/18/2023 [facility] [address] [place] [address] [phone] Cholesterol 164 mg/dL 0-200 1 Triglyceride 79 mg/dL 0-150 2 HDLD 62 mg/dL See Comment 3 Measured LDL 99 mg/dL 0-130 4 Calc VLDL 15.8 mg/dL See Comment 5 Chol/HDL 2.6 RATIO See Comment 6 Non-HDL 102 mg/dL See Comment 7 Laboratory test finding 02/18/2023 [facility] [address] [place] [address] [phone] Vitd-25Oh 77 ng/mL 30-100 VB12 411 pg/mL [...] LDL Target Procedures Date Code Description Status 06/21/2023 80229 Manual Bank Runner 1/> Area 15 Min Each Region Completed 06/21/2023 50351 Therapy Proc, Neuromuscular Reeducation Of Movement Completed 06/21/2023 81173 Therapy Proc 1/> Area 15Min Ea Completed 06/21/2023 18592 Hot/Cold Pack Completed 06/21/2023 57185 Therapeutic Activities Direc t, Each 15 Minutes Completed 06/19/2023 24481 Therapeutic Activities Direc t, Each 15 Minutes Completed 06/19/2023 09085 Manual Bank Runner 1/> Area 15 Min Each Region Completed 06/19/2023 88783 Therapy Proc, Neuromuscular Reeducation Of Movement Completed 06/19/2023 10841 Therapy Proc 1/> Area 15Min Ea Completed 06/19/2023 20787 Hot/Cold Pack Completed 06/17/2023 39917 Manual Bank Runner 1/> Area 15 Min Each Region Completed 06/17/2023 17454 Hot/Cold Pack Completed 06/17/2023 72792 Therapy Proc 1/> Area 15Min Ea Completed 06/17/2023 07069 Therapy Proc, Neuromuscular Reeducation Of Movement Completed 06/17/2023 33950 Therapeutic Activities Direc t, Each 15 Minutes Completed 06/14/2023 66512 Therapeutic Activities Direc t, Each 15 Minutes Completed 06/14/2023 26125 Manual Bank Runner 1/> Area 15 Min Each Region Completed 06/14/2023 26776 Therapy Proc, Neuromuscular Reeducation Of Movement Completed 06/14/2023 15431 Therapy Proc 1/> Area 15Min Ea Completed 06/14/2023 62099 Hot/Cold Pack Completed 06/12/2023 61227 Therapy Proc 1/> Area 15Min Ea Completed 06/12/2023 84673 Hot/Cold Pack Completed 06/12/2023 70852 Therapy Proc, Neuromuscular Reeducation Of Movement Completed 06/12/2023 79341 Therapeutic Activities Direc t, Each 15 Minutes Completed 06/12/2023 98918 Manual Bank Runner 1/> Area 15 Min Each Region Completed 06/07/2023 47189 Therapeutic Activities Direc t, Each 15 Minutes Completed 06/07/2023 57713 Manual Bank Runner 1/> Area 15 Min Each Region Completed 06/07/2023 55214 Therapy Proc, Neuromuscular Reeducation Of Movement Completed 06/07/2023 99834 Therapy Proc 1/> Area 15Min Ea Completed 06/05/2023 14513 Therapeutic Activities Direc t, Each 15 Minutes Completed 06/05/2023 75470 Manual Bank Runner 1/> Area 15 Min Each Region Completed 06/05/2023 10502 Therapy Proc, Neuromuscular Reeducation Of Movement Completed 06/05/2023 74522 Therapy Proc 1/> Area 15Min Ea Completed 06/05/2023 22398 Hot/Cold Pack Completed 06/03/2023 52778 Therapeutic Activities Direc t, Each 15 Minutes Completed 06/03/2023 19862 Hot/Cold Pack Completed 06/03/2023 72352 Therapy Proc 1/> Area 15Min Ea Completed 06/03/2023 96281 Therapy Proc, Neuromuscular Reeducation Of Movement Completed 06/03/2023 93515 Manual Bank Runner 1/> Area 15 Min Each Region Completed 05/31/2023 08869 Therapeutic Activities Direc t, Each 15 Minutes Completed 05/31/2023 74359 Manual Bank Runner 1/> Area 15 Min Each Region Completed 05/31/2023 04448 Therapy Proc, Neuromuscular Reeducation Of Movement Completed 05/31/2023 16213 Hot/Cold Pack Completed 05/29/2023 35204 Therapy Proc, Neuromuscular Reeducation Of Movement Completed 05/29/2023 11270 Hot/Cold Pack Completed 05/29/2023 65583 Therapeutic Activities Direc t, Each 15 Minutes Completed 05/29/2023 73170 Therapeutic Procedure Group Completed 05/29/2023 02373 Manual Bank Runner 1/> Area 15 Min Each Region Completed 05/27/2023 12953 Therapeutic Procedure Group Completed 05/27/2023 90767 Manual Bank Runner 1/> Area 15 Min Each Region Completed 05/27/2023 56979 Therapy Proc, Neuromuscular Reeducation Of Movement Completed 05/27/2023 59831 Hot/Cold Pack Completed 05/27/2023 72143 Therapeutic Activities Direc t, Each 15 Minutes Completed 05/24/2023 03389 Therapy Proc 1/> Area 15Min Ea Completed 05/24/2023 56547 Hot/Cold Pack Completed 05/24/2023 14806 Therapy Proc, Neuromuscular Reeducation Of Movement Completed 05/24/2023 09195 Manual Bank Runner 1/> Area 15 Min Each Region Completed 05/24/2023 48200 Therapeutic Activities Direc t, Each 15 Minutes Completed 05/22/2023 48601 Therapeutic Activities Direc t, Each 15 Minutes Completed 05/22/2023 06238 Manual Bank Runner 1/> Area 15 Min Each Region Completed 05/22/2023 79568 Therapy Proc, Neuromuscular Reeducation Of Movement Completed 05/22/2023 93955 Therapy Proc 1/> Area 15Min Ea Completed 05/22/2023 21247 Hot/Cold Pack Completed 05/20/2023 70374 Hot/Cold Pack Completed 05/20/2023 61411 Therapy Proc 1/> Area 15Min Ea Completed 05/20/2023 78067 Manual Bank Runner 1/> Area 15 Min Each Region Completed 05/20/2023 10311 Therapeutic Activities Direc t, Each 15 Minutes Completed 05/20/2023 57543 Therapy Proc, Neuromuscular Reeducation Of Movement Completed 05/17/2023 85591 Therapeutic Activities Direc t, Each 15 Minutes Completed 05/17/2023 74906 Manual Bank Runner 1/> Area 15 Min Each Region Completed 05/17/2023 64740 Therapy Proc, Neuromuscular Reeducation Of Movement Completed 05/17/2023 32668 Therapy Proc 1/> Area 15Min Ea Completed 05/17/2023 69498 Hot/Cold Pack Completed 05/15/2023 79960 Therapy Proc, Neuromuscular Reeducation Of Movement Completed 05/15/2023 05000 Hot/Cold Pack Completed 05/15/2023 10564 Therapy Proc 1/> Area 15Min Ea Completed 05/15/2023 45242 Manual Bank Runner 1/> Area 15 Min Each Region Completed 05/15/2023 96892 Therapeutic Activities Direc t, Each 15 Minutes Completed 2023 37033 Therapeutic Activities Direc t, Each 15 Minutes Completed 2023 51688 Manual Bank Runner 1/> Area 15 Min Each Region Completed 2023 89813 Therapy Proc, Neuromuscular Reeducation Of Movement Completed 2023 93088 Therapy Proc 1/> Area 15Min Ea Completed 2023 86498 Hot/Cold Pack Completed 05/10/2023 95252 Hot/Cold Pack Completed 05/10/2023 53815 Manual Bank Runner 1/> Area 15 Min Each Region Completed 05/10/2023 70854 Therapy Proc 1/> Area 15Min Ea Completed 05/10/2023 67347 Therapeutic Activities Direc t, Each 15 Minutes Completed 05/10/2023 55540 Therapy Proc, Neuromuscular Reeducation Of Movement Completed 05/08/2023 39516 Therapeutic Activities Direc t, Each 15 Minutes Completed 05/08/2023 37691 Manual Bank Runner 1/> Area 15 Min Each Region Completed 05/08/2023 79146 Therapy Proc, Neuromuscular Reeducation Of Movement Completed 05/08/2023 43896 Therapy Proc 1/> Area 15Min Ea Completed 05/08/2023 17414 Hot/Cold Pack Completed 05/06/2023 45974 Hot/Cold Pack Completed 05/06/2023 55577 Therapy Proc 1/> Area 15Min Ea Completed 05/06/2023 83398 Therapy Proc, Neuromuscular Reeducation Of Movement Completed 05/06/2023 74474 Manual Bank Runner 1/> Area 15 Min Each Region Completed 05/06/2023 95480 Therapeutic Activities Direc t, Each 15 Minutes Completed 05/02/2023 60116 Therapeutic Activities Direc t, Each 15 Minutes Completed 05/02/2023 06710 Manual Bank Runner 1/> Area 15 Min Each Region Completed 05/02/2023 07679 Therapy Proc, Neuromuscular Reeducation Of Movement Completed 05/02/2023 48781 Therapy Proc 1/> Area 15Min Ea Completed 04/30/2023 40114 Manual Bank Runner 1/> Area 15 Min Each Region Completed 04/30/2023 71532 Therapy Proc, Neuromuscular Reeducation Of Movement Completed 04/30/2023 80272 Therapy Proc 1/> Area 15Min Ea Completed 04/30/2023 61326 Hot/Cold Pack Completed 04/24/2023 97059 Manual Bank Runner 1/> Area 15 Min Each Region Completed 04/24/2023 23609 Therapy Proc 1/> Area 15Min Ea Completed 04/24/2023 10317 Therapy Proc, Neuromuscular Reeducation Of Movement Completed 04/22/2023 24568 Manual Bank Runner 1/> Area 15 Min Each Region Completed 04/22/2023 84930 Therapy Proc, Neuromuscular Reeducation Of Movement Completed 04/22/2023 08403 Therapy Proc 1/> Area 15Min Ea Completed 04/22/2023 76076 Hot/Cold Pack Completed 04/19/2023 16897 Manual Bank Runner 1/> Area 15 Min Each Region Completed 04/19/2023 94212 Therapy Proc, Neuromuscular Reeducation Of Movement Completed 04/19/2023 91296 Therapy Proc 1/> Area 15Min Ea Completed 04/19/2023 51745 Hot/Cold Pack Completed 04/18/2023 31193 Manual Bank Runner 1/> Area 15 Min Each Region Completed 04/18/2023 92405 Therapy Proc 1/> Area 15Min Ea Completed 04/18/2023 82710 Therapy Proc, Neuromuscular Reeducation Of Movement Completed 04/15/2023 34414 Manual Bank Runner 1/> Area 15 Min Each Region Completed 04/15/2023 66213 Therapy Proc, Neuromuscular Reeducation Of Movement Completed 04/15/2023 07875 Therapy Proc 1/> Area 15Min Ea Completed 04/15/2023 18294 Hot/Cold Pack Completed 04/12/2023 03922 Hot/Cold Pack Completed 04/12/2023 61408 Therapy Proc 1/> Area 15Min Ea Completed 04/12/2023 81112 Manual Bank Runner 1/> Area 15 Min Each Region Completed 04/12/2023 45145 Therapy Proc, Neuromuscular Reeducation Of Movement Completed 04/10/2023 85548 Therapy Proc, Neuromuscular Reeducation Of Movement Completed 04/10/2023 21567 Therapy Proc 1/> Area 15Min Ea Completed 04/10/2023 16606 Manual Bank Runner 1/> Area 15 Min Each Region Completed 04/08/2023 59054 Manual Bank Runner 1/> Area 15 Min Each Region Completed 04/08/2023 96126 Therapy Proc, Neuromuscular Reeducation Of Movement Completed 04/08/2023 75919 Therapy Proc 1/> Area 15Min Ea Completed 04/05/2023 66670 Manual Bank Runner 1/> Area 15 Min Each Region Completed 04/05/2023 77390 Therapy Proc, Neuromuscular Reeducation Of Movement Completed 04/05/2023 59375 Therapy Proc 1/> Area 15Min Ea Completed 04/03/2023 96575 Therapy Proc, Neuromuscular Reeducation Of Movement Completed 04/03/2023 97531 Therapy Proc 1/> Area 15Min Ea Completed 04/03/2023 49470 Manual Bank Runner 1/> Area 15 Min Each Region Completed 04/01/2023 94007 Manual Bank Runner 1/> Area 15 Min Each Region Completed 04/01/2023 86231 Therapy Proc, Neuromuscular Reeducation Of Movement Completed 04/01/2023 69086 Therapy Proc 1/> Area 15Min Ea Completed 03/29/2023 28923 Manual Bank Runner 1/> Area 15 Min Each Region Completed 03/29/2023 31552 Therapy Proc, Neuromuscular Reeducation Of Movement Completed 03/29/2023 54656 Therapy Proc 1/> Area 15Min Ea Completed 03/27/2023 52797 Therapy Proc 1/> Area 15Min Ea Completed 03/27/2023 96107 Therapy Proc, Neuromuscular Reeducation Of Movement Completed 03/27/2023 73055 Manual Bank Runner 1/> Area 15 Min Each Region Completed 03/25/2023 74549 Manual Bank Runner 1/> Area 15 Min Each Region Completed 03/25/2023 73422 Therapy Proc, Neuromuscular Reeducation Of Movement Completed 03/25/2023 58577 Therapy Proc 1/> Area 15Min Ea Completed 03/22/2023 67744 Manual Bank Runner 1/> Area 15 Min Each Region Completed 03/22/2023 05253 Therapy Proc, Neuromuscular Reeducation Of Movement Completed 03/22/2023 56223 Therapy Proc 1/> Area 15Min Ea Completed 03/20/2023 73122 Manual Bank Runner 1/> Area 15 Min Each Region Completed 03/20/2023 94593 Therapy Proc, Neuromuscular Reeducation Of Movement Completed 03/20/2023 44379 Therapy Proc 1/> Area 15Min Ea Completed 03/18/2023 86888 Manual Bank Runner 1/> Area 15 Min Each Region Completed 03/18/2023 78831 Therapy Proc 1/> Area 15Min Ea Completed 03/18/2023 34550 Therapy Proc, Neuromuscular Reeducation Of Movement Completed 03/15/2023 93542 Manual Bank Runner 1/> Area 15 Min Each Region Completed 03/15/2023 58853 Therapy Proc, Neuromuscular Reeducation Of Movement Completed 03/15/2023 07426 Therapy Proc 1/> Area 15Min Ea Completed 03/13/2023 00956 Physical Therapy Evaluation Moderate Complexity Completed 03/13/2023 58257 Manual Bank Runner 1/> Area 15 Min Each Region Completed 03/13/2023 17846 Therapy Proc 1/> Area 15Min Ea Completed 02/18/2023 84886 Venipuncture Routine Complet ed Medical Devices Description No Information Available Encounters Type Date Location Provider Dx Diagnosis Office Visit 02/22/2023 10:30a Jonatan Almodovar DO I10 Essential (pr imary) hypertension 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 F41.1 Generalized anxiety disorder M15.0 Primary generalized (osteo)arthritis Assessments Date Code Description Provider 06/21/2023 R26.2 Difficulty in wa lking, not elsewhere classified Aki Garcia DPT 06/21/2023 M25.511 Pain in right shoulder Oziel Garcia DPT 06/19/2023 R26.2 Difficulty in wa lking, not elsewhere classified Aki Garcia DPT 06/19/2023 M25.511 Pain in right shoulder [...] lking, not elsewhere classified Aki Garica, DPT 04/18/2023 M25.511 Pain in right shoulder [...] lking, not elsewhere classified Aki Garica, DPT 04/10/2023 M25.511 Pain in right shoulder [...] I10 Essential (primary) hyperten vickie [facility] - [place] 02/18/2023 E55.9 Vitamin D deficiency, unspec ified Dawson Almodovar, DO 02/18/2023 E55.9 Vitamin D deficiency, unspec ified Lab - [place] 02/18/2023 E53.8 Deficiency of ot her specified B group vitamins Dawson Almodovar DO 02/18/2023 E53.8 Deficiency of ot her specified B group vitamins Lab - [place] Plan of Treatment Future Appointment(s):* 09/06/2023 10:30 am - Dawson Almodovar DO at [place] * 08/28/2023 10:30 am - [facility] [place] Functional Status Description No Information Available Mental Status Description No Information Available Referrals Description No Information Available"
--- OUTSIDE RECORDS SUMMARY | 2023-10-11 13:19 | External Medical Summary | Continuity of Care Document ---
Author Name AKI GARCIA DPT Address [address] [facility], [address] [place] [id number] Phone [phone] Organization [facility], Address [address] [place] [address] Phone [phone] Problems Active Problems Provider Date Essential hypertension [...] SIG Qnty Indications Order ing Provider Date [id number] Tablets 2 tablets by mouth every day 30tabs R60.0 Dawson Almodovar DO 10/05/2022 Multi + Boykins-3 Adult GummiesChewtabs 1 by mouth every day Dawson Almodovar DO 08/08/2022 Vitamin B ComplexTablets 1 by mouth every day Dawson Almodovar DO 08/08/2022 Losartan Potassium/Hydrochlorothi [id number] Tablets 1 by mouth every day 90tabs I10 Dawson Almodovar, DO 03/21/2020 Juice Plus Fibre` Dawson Almodovar, DO 02/19/2018 Aspirin Adult Low Ouax22iw Tablets DR 1 by mouth every day Unknown Citalopram Vimrfyovlxep81nv Tablets 1 by mouth every day 90tabs F41.1 Dawson Almodovar, DO Vitamin D3 Maximum [id number] (5000 Ut) Capsules 1 by mouth once daily Unknown Immunizations CPT Code Status Date Vaccine Lot # [id number] Given 07/14/2009 Pneumococcal Vaccine/Pneu movax 23 [id number] Refused 10/19/2022 Shingrix 28926 Refused 08/08/2022 Pneumococcal Conjugate-Pr evnar 20 88006 Refused 08/08/2022 Influenza Vac, Split, Preservative Free High Dose Age 65 & > [address] Refused 04/20/2022 Moderna Sars-Co v-2 (Cov-19) vacc,100 mcg/ 0.5 mL 12Y+EMR Doc Only 88713 Refused 10/16/2021 Influenza Virus Vaccine, Quadrivalent (Cciiv4), Derived From Cell 83333 Refused 10/16/2021 Shingrix 94554 Refused 10/16/2021 Pneumococcal Conjugate-Pr evnar 13 14172 Refused 03/20/2021 Pfizer Sars-Cov -2 (Cov-19) vacc 30mcg/0.3ML 12Y+ EMR Doc Only 17896 Refused 04/17/2019 Influenza Vacci ne, Inactivated, Subunit, Adjuvanted, For Intrmusc 08742 Refused 01/29/2019 Tdap (Tetanus, diphtheria & acel. pertussis) Adacel or Boostrix 66636 Refused 01/29/2019 Pneumococcal Conjugate-Pr evnar 13 Vital [...] H/L Range N ote CBC W/Diff 02/18/2023 [facility]. [address] [place] [address] [phone] WBC 7.6 10^3/M3 3.1-9.2 RBC 4.19 10^6/M3 3.70-5.50 HGB 12.2 GR/DL 11.5-16.1 HCT 36.6 % 34.5-47.8 MCV 87.5 CUMICR 82.6-95.8 MCH 29.1 PICOGR 27.9-32.9 MCHC 33.3 % 32.6-35.4 RDW 14.9 % High 11.4-14.6 PLT 225 10^3/M3 140-350 MPV 8.8 CUMICR 7.0-10.6 %Neut 57.1 % 40.0-75.0 %Lymph 29.4 % 17.0-45.0 %[place] 8.6 % 1.0-11.0 %Eos 3.8 % 0.0-6.0 %Baso 1.1 % 0.0-2.0 #Neut 4.4 10^3/M3 1.5-8.0 #Lymph 2.2 10^3/M3 0.8-3.2 #[place] 0.7 10^3/M3 0.0-0.8 #Eos 0.3 10^3/m3 0.0-0.4 #Baso 0.1 10^3/m3 0.0-0.2 Comp. Met 02/18/2023 [facility] [address] [place], [place] [id number] [phone] Glucose 96 mg/dL 70-110 BUN 18 mg/dL [...] 2.0-3.4 GFR 72 ML/MIN/1.73SQM >60 Lipid 02/18/2023 [facility] [address] [place] [address] [phone] Cholesterol 164 mg/dL 0-200 1 Triglyceride 79 mg/dL 0-150 2 HDLD 62 mg/dL See Comment 3 Measured LDL 99 mg/dL 0-130 4 Calc VLDL 15.8 mg/dL See Comment 5 Chol/HDL 2.6 RATIO See Comment 6 Non-HDL 102 mg/dL See Comment 7 Laboratory test finding 02/18/2023 [facility] [address] [place] [address] [phone] Vitd-25Oh 77 ng/mL 30-100 VB12 411 pg/mL [...] LDL Target Procedures Date Code Description Status 06/19/2023 14340 Manual Head Of Visual Merchandising 1/> Area 15 Min Each Region Completed 06/19/2023 73725 Therapeutic Activities Direc t, Each 15 Minutes Completed 06/19/2023 34645 Hot/Cold Pack Completed 06/19/2023 39408 Therapy Proc, Neuromuscular Reeducation Of Movement Completed 06/19/2023 38791 Therapy Proc 1/> Area 15Min Ea Completed 06/17/2023 10973 Manual Head Of Visual Merchandising 1/> Area 15 Min Each Region Completed 06/17/2023 53621 Therapeutic Activities Direc t, Each 15 Minutes Completed 06/17/2023 92488 Hot/Cold Pack Completed 06/17/2023 31213 Therapy Proc 1/> Area 15Min Ea Completed 06/17/2023 31591 Therapy Proc, Neuromuscular Reeducation Of Movement Completed 06/14/2023 71601 Therapeutic Activities Direc t, Each 15 Minutes Completed 06/14/2023 56261 Manual Head Of Visual Merchandising 1/> Area 15 Min Each Region Completed 06/14/2023 10210 Therapy Proc, Neuromuscular Reeducation Of Movement Completed 06/14/2023 48625 Therapy Proc 1/> Area 15Min Ea Completed 06/14/2023 53302 Hot/Cold Pack Completed 06/12/2023 63644 Therapeutic Activities Direc t, Each 15 Minutes Completed 06/12/2023 36463 Manual Head Of Visual Merchandising 1/> Area 15 Min Each Region Completed 06/12/2023 21417 Therapy Proc, Neuromuscular Reeducation Of Movement Completed 06/12/2023 12210 Therapy Proc 1/> Area 15Min Ea Completed 06/12/2023 14037 Hot/Cold Pack Completed 06/07/2023 24195 Therapy Proc 1/> Area 15Min Ea Completed 06/07/2023 23406 Therapy Proc, Neuromuscular Reeducation Of Movement Completed 06/07/2023 44127 Therapeutic Activities Direc t, Each 15 Minutes Completed 06/07/2023 71046 Manual Head Of Visual Merchandising 1/> Area 15 Min Each Region Completed 06/05/2023 25571 Therapeutic Activities Direc t, Each 15 Minutes Completed 06/05/2023 65963 Manual Head Of Visual Merchandising 1/> Area 15 Min Each Region Completed 06/05/2023 15893 Therapy Proc, Neuromuscular Reeducation Of Movement Completed 06/05/2023 13971 Therapy Proc 1/> Area 15Min Ea Completed 06/05/2023 78800 Hot/Cold Pack Completed 06/03/2023 43454 Therapy Proc, Neuromuscular Reeducation Of Movement Completed 06/03/2023 81371 Hot/Cold Pack Completed 06/03/2023 36254 Therapy Proc 1/> Area 15Min Ea Completed 06/03/2023 79400 Manual Head Of Visual Merchandising 1/> Area 15 Min Each Region Completed 06/03/2023 31613 Therapeutic Activities Direc t, Each 15 Minutes Completed 05/31/2023 84948 Therapeutic Activities Direc t, Each 15 Minutes Completed 05/31/2023 55094 Manual Head Of Visual Merchandising 1/> Area 15 Min Each Region Completed 05/31/2023 26025 Therapy Proc, Neuromuscular Reeducation Of Movement Completed 05/31/2023 72218 Hot/Cold Pack Completed 05/29/2023 85182 Hot/Cold Pack Completed 05/29/2023 56614 Therapy Proc, Neuromuscular Reeducation Of Movement Completed 05/29/2023 51609 Therapeutic Procedure Group Completed 05/29/2023 46700 Manual Head Of Visual Merchandising 1/> Area 15 Min Each Region Completed 05/29/2023 45669 Therapeutic Activities Direc t, Each 15 Minutes Completed 05/27/2023 15563 Therapeutic Activities Direc t, Each 15 Minutes Completed 05/27/2023 62628 Therapeutic Procedure Group Completed 05/27/2023 04649 Manual Head Of Visual Merchandising 1/> Area 15 Min Each Region Completed 05/27/2023 76180 Therapy Proc, Neuromuscular Reeducation Of Movement Completed 05/27/2023 82591 Hot/Cold Pack Completed 05/24/2023 97018 Therapy Proc 1/> Area 15Min Ea Completed 05/24/2023 03097 Hot/Cold Pack Completed 05/24/2023 05349 Therapy Proc, Neuromuscular Reeducation Of Movement Completed 05/24/2023 81796 Manual Head Of Visual Merchandising 1/> Area 15 Min Each Region Completed 05/24/2023 18252 Therapeutic Activities Direc t, Each 15 Minutes Completed 05/22/2023 14390 Therapeutic Activities Direc t, Each 15 Minutes Completed 05/22/2023 89335 Manual Head Of Visual Merchandising 1/> Area 15 Min Each Region Completed 05/22/2023 05183 Therapy Proc, Neuromuscular Reeducation Of Movement Completed 05/22/2023 72344 Therapy Proc 1/> Area 15Min Ea Completed 05/22/2023 52346 Hot/Cold Pack Completed 05/20/2023 81205 Hot/Cold Pack Completed 05/20/2023 67339 Therapy Proc 1/> Area 15Min Ea Completed 05/20/2023 36772 Therapy Proc, Neuromuscular Reeducation Of Movement Completed 05/20/2023 42835 Therapeutic Activities Direc t, Each 15 Minutes Completed 05/20/2023 45575 Manual Head Of Visual Merchandising 1/> Area 15 Min Each Region Completed 05/17/2023 26672 Therapeutic Activities Direc t, Each 15 Minutes Completed 05/17/2023 79776 Manual Head Of Visual Merchandising 1/> Area 15 Min Each Region Completed 05/17/2023 77444 Therapy Proc, Neuromuscular Reeducation Of Movement Completed 05/17/2023 66069 Therapy Proc 1/> Area 15Min Ea Completed 05/17/2023 35160 Hot/Cold Pack Completed 05/15/2023 29062 Therapy Proc, Neuromuscular Reeducation Of Movement Completed 05/15/2023 58361 Hot/Cold Pack Completed 05/15/2023 63538 Therapy Proc 1/> Area 15Min Ea Completed 05/15/2023 26516 Manual Head Of Visual Merchandising 1/> Area 15 Min Each Region Completed 05/15/2023 53218 Therapeutic Activities Direc t, Each 15 Minutes Completed 2023 53153 Therapeutic Activities Direc t, Each 15 Minutes Completed 2023 21649 Manual Head Of Visual Merchandising 1/> Area 15 Min Each Region Completed 2023 86009 Therapy Proc, Neuromuscular Reeducation Of Movement Completed 2023 62222 Therapy Proc 1/> Area 15Min Ea Completed 2023 39832 Hot/Cold Pack Completed 05/10/2023 25172 Hot/Cold Pack Completed 05/10/2023 23301 Therapy Proc 1/> Area 15Min Ea Completed 05/10/2023 89905 Manual Head Of Visual Merchandising 1/> Area 15 Min Each Region Completed 05/10/2023 52529 Therapy Proc, Neuromuscular Reeducation Of Movement Completed 05/10/2023 63740 Therapeutic Activities Direc t, Each 15 Minutes Completed 05/08/2023 52043 Therapeutic Activities Direc t, Each 15 Minutes Completed 05/08/2023 83324 Manual Head Of Visual Merchandising 1/> Area 15 Min Each Region Completed 05/08/2023 55480 Therapy Proc, Neuromuscular Reeducation Of Movement Completed 05/08/2023 76314 Therapy Proc 1/> Area 15Min Ea Completed 05/08/2023 61541 Hot/Cold Pack Completed 05/06/2023 24343 Hot/Cold Pack Completed 05/06/2023 28475 Therapy Proc 1/> Area 15Min Ea Completed 05/06/2023 18071 Therapy Proc, Neuromuscular Reeducation Of Movement Completed 05/06/2023 84396 Manual Head Of Visual Merchandising 1/> Area 15 Min Each Region Completed 05/06/2023 42816 Therapeutic Activities Direc t, Each 15 Minutes Completed 05/02/2023 09375 Therapeutic Activities Direc t, Each 15 Minutes Completed 05/02/2023 62549 Manual Head Of Visual Merchandising 1/> Area 15 Min Each Region Completed 05/02/2023 31103 Therapy Proc, Neuromuscular Reeducation Of Movement Completed 05/02/2023 04938 Therapy Proc 1/> Area 15Min Ea Completed 04/30/2023 66660 Manual Head Of Visual Merchandising 1/> Area 15 Min Each Region Completed 04/30/2023 45174 Therapy Proc, Neuromuscular Reeducation Of Movement Completed 04/30/2023 76418 Therapy Proc 1/> Area 15Min Ea Completed 04/30/2023 30390 Hot/Cold Pack Completed 04/24/2023 11335 Manual Head Of Visual Merchandising 1/> Area 15 Min Each Region Completed 04/24/2023 92996 Therapy Proc 1/> Area 15Min Ea Completed 04/24/2023 28879 Therapy Proc, Neuromuscular Reeducation Of Movement Completed 04/22/2023 47070 Manual Head Of Visual Merchandising 1/> Area 15 Min Each Region Completed 04/22/2023 62349 Therapy Proc, Neuromuscular Reeducation Of Movement Completed 04/22/2023 50563 Therapy Proc 1/> Area 15Min Ea Completed 04/22/2023 01587 Hot/Cold Pack Completed 04/19/2023 34205 Manual Head Of Visual Merchandising 1/> Area 15 Min Each Region Completed 04/19/2023 30005 Therapy Proc, Neuromuscular Reeducation Of Movement Completed 04/19/2023 36163 Therapy Proc 1/> Area 15Min Ea Completed 04/19/2023 14734 Hot/Cold Pack Completed 04/18/2023 85436 Manual Head Of Visual Merchandising 1/> Area 15 Min Each Region Completed 04/18/2023 89334 Therapy Proc 1/> Area 15Min Ea Completed 04/18/2023 39104 Therapy Proc, Neuromuscular Reeducation Of Movement Completed 04/15/2023 67600 Manual Head Of Visual Merchandising 1/> Area 15 Min Each Region Completed 04/15/2023 31358 Therapy Proc, Neuromuscular Reeducation Of Movement Completed 04/15/2023 81149 Therapy Proc 1/> Area 15Min Ea Completed 04/15/2023 99839 Hot/Cold Pack Completed 04/12/2023 07967 Hot/Cold Pack Completed 04/12/2023 37220 Therapy Proc 1/> Area 15Min Ea Completed 04/12/2023 76346 Manual Head Of Visual Merchandising 1/> Area 15 Min Each Region Completed 04/12/2023 53041 Therapy Proc, Neuromuscular Reeducation Of Movement Completed 04/10/2023 42920 Therapy Proc, Neuromuscular Reeducation Of Movement Completed 04/10/2023 00480 Therapy Proc 1/> Area 15Min Ea Completed 04/10/2023 75643 Manual Head Of Visual Merchandising 1/> Area 15 Min Each Region Completed 04/08/2023 43296 Manual Head Of Visual Merchandising 1/> Area 15 Min Each Region Completed 04/08/2023 52347 Therapy Proc, Neuromuscular Reeducation Of Movement Completed 04/08/2023 94353 Therapy Proc 1/> Area 15Min Ea Completed 04/05/2023 38539 Manual Head Of Visual Merchandising 1/> Area 15 Min Each Region Completed 04/05/2023 24045 Therapy Proc, Neuromuscular Reeducation Of Movement Completed 04/05/2023 70274 Therapy Proc 1/> Area 15Min Ea Completed 04/03/2023 31367 Therapy Proc, Neuromuscular Reeducation Of Movement Completed 04/03/2023 37937 Therapy Proc 1/> Area 15Min Ea Completed 04/03/2023 80881 Manual Head Of Visual Merchandising 1/> Area 15 Min Each Region Completed 04/01/2023 71353 Manual Head Of Visual Merchandising 1/> Area 15 Min Each Region Completed 04/01/2023 03023 Therapy Proc, Neuromuscular Reeducation Of Movement Completed 04/01/2023 84186 Therapy Proc 1/> Area 15Min Ea Completed 03/29/2023 52702 Manual Head Of Visual Merchandising 1/> Area 15 Min Each Region Completed 03/29/2023 14382 Therapy Proc, Neuromuscular Reeducation Of Movement Completed 03/29/2023 74245 Therapy Proc 1/> Area 15Min Ea Completed 03/27/2023 18408 Therapy Proc 1/> Area 15Min Ea Completed 03/27/2023 49902 Therapy Proc, Neuromuscular Reeducation Of Movement Completed 03/27/2023 80302 Manual Head Of Visual Merchandising 1/> Area 15 Min Each Region Completed 03/25/2023 48547 Manual Head Of Visual Merchandising 1/> Area 15 Min Each Region Completed 03/25/2023 62657 Therapy Proc, Neuromuscular Reeducation Of Movement Completed 03/25/2023 27290 Therapy Proc 1/> Area 15Min Ea Completed 03/22/2023 41816 Manual Head Of Visual Merchandising 1/> Area 15 Min Each Region Completed 03/22/2023 32791 Therapy Proc, Neuromuscular Reeducation Of Movement Completed 03/22/2023 79988 Therapy Proc 1/> Area 15Min Ea Completed 03/20/2023 67413 Manual Head Of Visual Merchandising 1/> Area 15 Min Each Region Completed 03/20/2023 98705 Therapy Proc, Neuromuscular Reeducation Of Movement Completed 03/20/2023 39862 Therapy Proc 1/> Area 15Min Ea Completed 03/18/2023 33303 Manual Head Of Visual Merchandising 1/> Area 15 Min Each Region Completed 03/18/2023 11024 Therapy Proc 1/> Area 15Min Ea Completed 03/18/2023 70872 Therapy Proc, Neuromuscular Reeducation Of Movement Completed 03/15/2023 49897 Manual Head Of Visual Merchandising 1/> Area 15 Min Each Region Completed 03/15/2023 18103 Therapy Proc, Neuromuscular Reeducation Of Movement Completed 03/15/2023 53478 Therapy Proc 1/> Area 15Min Ea Completed 03/13/2023 84548 Physical Therapy Evaluation Moderate Complexity Completed 03/13/2023 64283 Manual Head Of Visual Merchandising 1/> Area 15 Min Each Region Completed 03/13/2023 82182 Therapy Proc 1/> Area 15Min Ea Completed 02/18/2023 09007 Venipuncture Routine Complet ed Medical Devices Description No Information Available Encounters Type Date Location Provider Dx Diagnosis Office Visit 02/22/2023 10:30a Jonatan Almodovar DO I10 Essential (pr imary) hypertension 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 F41.1 Generalized anxiety disorder M15.0 Primary generalized (osteo)arthritis Assessments Date Code Description Provider 06/19/2023 R26.2 Difficulty in wa lking, not elsewhere classified Aki Garcia DPT 06/19/2023 M25.511 Pain in right shoulder Oziel Garcia, GABRIELLET 06/17/2023 R26.2 Difficulty in wa lking, not elsewhere classified Aki Garcia DPT 06/17/2023 M25.511 Pain in right shoulder Oziel Garcia, GABRIELLET 06/14/2023 R26.2 Difficulty in wa [place]king, not elsewhere classified Aki Garcia DPT 06/14/2023 M25.511 Pain in right shoulder Oziel Garcia, NOE 06/12/2023 R26.2 Difficulty in wa lking, not [...] 03/22/2023 M25.511 Pain in right shoulder Oziel jeremy Garcia, DPT 03/20/2023 R26.2 Difficulty in wa lking, not elsewhere classified Sabianism Smith, DPT 03/20/2023 M25.511 Pain in right shoulder Oziel Garcia, DPT 03/18/2023 R26.2 Difficulty in wa lking, not elsewhere classified Sabianism Smith, DPT 03/18/2023 M25.511 Pain in right shoulder Oziel Garcia, DPT 03/15/2023 R26.2 Difficulty in wa lking, not elsewhere classified Sabianism Smith, DPT 03/15/2023 M25.511 Pain in right shoulder Oziel Garcia, DPT 03/13/2023 R26.2 Difficulty in wa lking, not elsewhere classified Sabianism Smith, DPT 03/13/2023 M25.511 Pain in right [...] I10 Essential (primary) hyperten vick[facility] [place] 02/18/2023 E55.9 Vitamin D deficiency, unspec ified Dawson Almodovar, DO 02/18/2023 E55.9 Vitamin D deficiency, unspec ified [facility] [place] 02/18/2023 E53.8 Deficiency of ot her specified B group vitamins Dawson Almodovar, DO 02/18/2023 E53.8 Deficiency of ot her specified B group vitamins [facility] [place] Plan of Treatment Future Appointment(s):* 09/06/2023 10:30 am - Dawson Almodovar DO at [place] * 08/28/2023 10:30 am - [facility] [place] [facility] Status Description No Information Available Mental Status Description No Information Available Referrals Description No Information Available"
--- OUTSIDE RECORDS SUMMARY | 2023-10-11 13:20 | External Medical Summary | Continuity of Care Document ---
Author Name AKI GARCIA DPT Address [address] [address] Phone [phone] Organization [facility], Address [address] [place] [address] Phone [phone] Problems Active Problems Provider Date Essential hypertension [...] SIG Qnty Indications Order ing Provider Date Onqypcvdzm47nj Tablets 2 tablets by mouth every day 30tabs R60.0 Fior Rodriguez MD, PhD 10/05/2022 Multi + [place]-3 Adult GummiesChewtabs 1 by mouth every day Dawson Almodovar DO 08/08/2022 Vitamin B ComplexTablets 1 by mouth every day Dawson Almodovar DO 08/08/2022 Losartan Potassium/Hydrochlorothi -50hn Tablets 1 by mouth every day 90tabs I10 Dawson Almodovar, DO 03/21/2020 Juice Plus Fibre` Dawson Almodovar, DO 02/19/2018 Aspirin Adult Low Huxg74tq Tablets DR 1 by mouth every day Unknown Citalopram Auzrgwfmlhfo47kv Tablets 1 by mouth every day 90tabs F41.1 Dawson Almodovar, DO Vitamin D3 Maximum [id number] (5000 Ut) Capsules 1 by mouth once daily Unknown Immunizations CPT Code Status Date Vaccine Lot # [id number] Given 07/14/2009 Pneumococcal Vaccine/Pneu movax 23 [id number] Refused 10/19/2022 Shingrix 42603 Refused 08/08/2022 Pneumococcal Conjugate-Pr evnar 20 32485 Refused 08/08/2022 Influenza Vac, Split, Preservative Free High Dose Age 65 & > 71415 Refused 04/20/2022 Moderna Sars-Co v-2 (Cov-19) vacc,100 mcg/ 0.5 mL 12Y+EMR Doc Only 40045 Refused 10/16/2021 Influenza Virus Vaccine, Quadrivalent (Cciiv4), Derived From Cell 47388 Refused 10/16/2021 Shingrix 28521 Refused 10/16/2021 Pneumococcal Conjugate-Pr evnar 13 11967 Refused 03/20/2021 Pfizer Sars-Cov -2 (Cov-19) vacc 30mcg/0.3ML 12Y+ EMR Doc Only 84097 Refused 04/17/2019 Influenza Vacci ne, Inactivated, Subunit, Adjuvanted, For Intrmusc 65823 Refused 01/29/2019 Tdap (Tetanus, diphtheria & acel. pertussis) Adacel or Boostrix 47085 Refused 01/29/2019 Pneumococcal Conjugate-Pr evnar 13 Vital [...] H/L Range N ote CBC W/Diff 02/18/2023 [facility] [address] [place] [address] [phone] WBC 7.6 10^3/M3 3.1-9.2 RBC 4.19 10^6/M3 3.70-5.50 HGB 12.2 GR/DL 11.5-16.1 HCT 36.6 % 34.5-47.8 MCV 87.5 CUMICR 82.6-95.8 MCH 29.1 PICOGR 27.9-32.9 MCHC 33.3 % 32.6-35.4 RDW 14.9 % High 11.4-14.6 PLT 225 10^3/M3 140-350 MPV 8.8 CUMICR 7.0-10.6 %Neut 57.1 % 40.0-75.0 %Lymph 29.4 % 17.0-45.0 %[place] 8.6 % 1.0-11.0 %Eos 3.8 % 0.0-6.0 %Bas[place] 1.1 % 0.0-2.0 #Neut 4.4 10^3/M3 1.5-8.0 #Lymph 2.2 10^3/M3 0.8-3.2 #[place] 0.7 10^3/M3 0.0-0.8 #Eos 0.3 10^3/m3 0.0-0.4 #Bas[place] 0.1 10^3/m3 0.0-0.2 Comp. Met 02/18/2023 [facility] [address] [place] [address] [phone] Glucose 96 mg/dL 70-110 BUN 18 mg/dL [...] 2.0-3.4 GFR 72 ML/MIN/1.73SQM >60 Lipid 02/18/2023 [facility] [address] [place] [address] [phone] Cholesterol 164 mg/dL 0-200 1 Triglyceride 79 mg/dL 0-150 2 HDLD 62 mg/dL See Comment 3 Measured LDL 99 mg/dL 0-130 4 Calc VLDL 15.8 mg/dL See Comment 5 Chol/HDL 2.6 RATIO See Comment 6 Non-HDL 102 mg/dL See Comment 7 Laboratory test finding 02/18/2023 [facility] [address] [place] [address] [phone] Vitd-25Oh 77 ng/mL 30-100 VB12 411 pg/mL [...] LDL Target Procedures Date Code Description Status 06/03/2023 01979 Manual Tennis Director 1/> Area 15 Min Each Region Completed 06/03/2023 50053 Therapy Proc, Neuromuscular Reeducation Of Movement Completed 06/03/2023 81194 Therapy Proc 1/> Area 15Min Ea Completed 06/03/2023 40800 Hot/Cold Pack Completed 06/03/2023 94842 Therapeutic Activities Direc t, Each 15 Minutes Completed 05/31/2023 71343 Hot/Cold Pack Completed 05/31/2023 61045 Therapy Proc, Neuromuscular Reeducation Of Movement Completed 05/31/2023 18877 Manual Tennis Director 1/> Area 15 Min Each Region Completed 05/31/2023 66801 Therapeutic Activities Direc t, Each 15 Minutes Completed 05/29/2023 41722 Therapeutic Activities Direc t, Each 15 Minutes Completed 05/29/2023 57068 Therapeutic Procedure Group Completed 05/29/2023 82826 Manual Tennis Director 1/> Area 15 Min Each Region Completed 05/29/2023 04304 Therapy Proc, Neuromuscular Reeducation Of Movement Completed 05/29/2023 05123 Hot/Cold Pack Completed 05/27/2023 92213 Therapeutic Procedure Group Completed 05/27/2023 73748 Hot/Cold Pack Completed 05/27/2023 27502 Therapy Proc, Neuromuscular Reeducation Of Movement Completed 05/27/2023 55843 Manual Tennis Director 1/> Area 15 Min Each Region Completed 05/27/2023 91483 Therapeutic Activities Direc t, Each 15 Minutes Completed 05/24/2023 96049 Therapeutic Activities Direc t, Each 15 Minutes Completed 05/24/2023 46110 Manual Tennis Director 1/> Area 15 Min Each Region Completed 05/24/2023 94227 Therapy Proc, Neuromuscular Reeducation Of Movement Completed 05/24/2023 50024 Therapy Proc 1/> Area 15Min Ea Completed 05/24/2023 18573 Hot/Cold Pack Completed 05/22/2023 18406 Therapeutic Activities Direc t, Each 15 Minutes Completed 05/22/2023 47954 Manual Tennis Director 1/> Area 15 Min Each Region Completed 05/22/2023 11273 Therapy Proc, Neuromuscular Reeducation Of Movement Completed 05/22/2023 20627 Therapy Proc 1/> Area 15Min Ea Completed 05/22/2023 31907 Hot/Cold Pack Completed 05/20/2023 32842 Hot/Cold Pack Completed 05/20/2023 68673 Therapy Proc 1/> Area 15Min Ea Completed 05/20/2023 65200 Manual Tennis Director 1/> Area 15 Min Each Region Completed 05/20/2023 07968 Therapeutic Activities Direc t, Each 15 Minutes Completed 05/20/2023 70790 Therapy Proc, Neuromuscular Reeducation Of Movement Completed 05/17/2023 30139 Therapeutic Activities Direc t, Each 15 Minutes Completed 05/17/2023 73440 Manual Tennis Director 1/> Area 15 Min Each Region Completed 05/17/2023 86744 Therapy Proc, Neuromuscular Reeducation Of Movement Completed 05/17/2023 14302 Therapy Proc 1/> Area 15Min Ea Completed 05/17/2023 39268 Hot/Cold Pack Completed 05/15/2023 82966 Therapeutic Activities Direc t, Each 15 Minutes Completed 05/15/2023 29621 Manual Tennis Director 1/> Area 15 Min Each Region Completed 05/15/2023 64329 Therapy Proc, Neuromuscular Reeducation Of Movement Completed 05/15/2023 60126 Therapy Proc 1/> Area 15Min Ea Completed 05/15/2023 65068 Hot/Cold Pack Completed 2023 27338 Hot/Cold Pack Completed 2023 57654 Therapy Proc 1/> Area 15Min Ea Completed 2023 85479 Manual Tennis Director 1/> Area 15 Min Each Region Completed 2023 93413 Therapeutic Activities Direc t, Each 15 Minutes Completed 2023 46144 Therapy Proc, Neuromuscular Reeducation Of Movement Completed 05/10/2023 77160 Therapeutic Activities Direc t, Each 15 Minutes Completed 05/10/2023 02338 Manual Tennis Director 1/> Area 15 Min Each Region Completed 05/10/2023 39217 Therapy Proc, Neuromuscular Reeducation Of Movement Completed 05/10/2023 97933 Therapy Proc 1/> Area 15Min Ea Completed 05/10/2023 47558 Hot/Cold Pack Completed 05/08/2023 98288 Therapy Proc, Neuromuscular Reeducation Of Movement Completed 05/08/2023 35074 Hot/Cold Pack Completed 05/08/2023 36120 Therapy Proc 1/> Area 15Min Ea Completed 05/08/2023 48163 Manual Tennis Director 1/> Area 15 Min Each Region Completed 05/08/2023 05182 Therapeutic Activities Direc t, Each 15 Minutes Completed 05/06/2023 22268 Therapeutic Activities Direc t, Each 15 Minutes Completed 05/06/2023 47025 Manual Tennis Director 1/> Area 15 Min Each Region Completed 05/06/2023 16619 Therapy Proc, Neuromuscular Reeducation Of Movement Completed 05/06/2023 52413 Therapy Proc 1/> Area 15Min Ea Completed 05/06/2023 40859 Hot/Cold Pack Completed 05/02/2023 29065 Therapy Proc 1/> Area 15Min Ea Completed 05/02/2023 82049 Therapy Proc, Neuromuscular Reeducation Of Movement Completed 05/02/2023 68172 Therapeutic Activities Direc t, Each 15 Minutes Completed 05/02/2023 48209 Manual Tennis Director 1/> Area 15 Min Each Region Completed 04/30/2023 96453 Manual Tennis Director 1/> Area 15 Min Each Region Completed 04/30/2023 04381 Therapy Proc, Neuromuscular Reeducation Of Movement Completed 04/30/2023 74497 Therapy Proc 1/> Area 15Min Ea Completed 04/30/2023 23153 Hot/Cold Pack Completed 04/24/2023 41187 Manual Tennis Director 1/> Area 15 Min Each Region Completed 04/24/2023 44281 Therapy Proc, Neuromuscular Reeducation Of Movement Completed 04/24/2023 64928 Therapy Proc 1/> Area 15Min Ea Completed 04/22/2023 42739 Manual Tennis Director 1/> Area 15 Min Each Region Completed 04/22/2023 02677 Hot/Cold Pack Completed 04/22/2023 19033 Therapy Proc 1/> Area 15Min Ea Completed 04/22/2023 36367 Therapy Proc, Neuromuscular Reeducation Of Movement Completed 04/19/2023 48383 Manual Tennis Director 1/> Area 15 Min Each Region Completed 04/19/2023 05280 Therapy Proc, Neuromuscular Reeducation Of Movement Completed 04/19/2023 70439 Therapy Proc 1/> Area 15Min Ea Completed 04/19/2023 80828 Hot/Cold Pack Completed 04/18/2023 62391 Therapy Proc, Neuromuscular Reeducation Of Movement Completed 04/18/2023 32971 Therapy Proc 1/> Area 15Min Ea Completed 04/18/2023 91191 Manual Tennis Director 1/> Area 15 Min Each Region Completed 04/15/2023 12637 Manual Tennis Director 1/> Area 15 Min Each Region Completed 04/15/2023 11714 Therapy Proc, Neuromuscular Reeducation Of Movement Completed 04/15/2023 20044 Therapy Proc 1/> Area 15Min Ea Completed 04/15/2023 59743 Hot/Cold Pack Completed 04/12/2023 96757 Hot/Cold Pack Completed 04/12/2023 00285 Therapy Proc 1/> Area 15Min Ea Completed 04/12/2023 57647 Therapy Proc, Neuromuscular Reeducation Of Movement Completed 04/12/2023 93553 Manual Tennis Director 1/> Area 15 Min Each Region Completed 04/10/2023 23984 Manual Tennis Director 1/> Area 15 Min Each Region Completed 04/10/2023 27542 Therapy Proc, Neuromuscular Reeducation Of Movement Completed 04/10/2023 72982 Therapy Proc 1/> Area 15Min Ea Completed 04/08/2023 32833 Manual Tennis Director 1/> Area 15 Min Each Region Completed 04/08/2023 88028 Therapy Proc, Neuromuscular Reeducation Of Movement Completed 04/08/2023 76739 Therapy Proc 1/> Area 15Min Ea Completed 04/05/2023 86376 Manual Tennis Director 1/> Area 15 Min Each Region Completed 04/05/2023 22308 Therapy Proc 1/> Area 15Min Ea Completed 04/05/2023 60201 Therapy Proc, Neuromuscular Reeducation Of Movement Completed 04/03/2023 66281 Manual Tennis Director 1/> Area 15 Min Each Region Completed 04/03/2023 10662 Therapy Proc, Neuromuscular Reeducation Of Movement Completed 04/03/2023 66078 Therapy Proc 1/> Area 15Min Ea Completed 04/01/2023 14263 Manual Tennis Director 1/> Area 15 Min Each Region Completed 04/01/2023 72131 Therapy Proc, Neuromuscular Reeducation Of Movement Completed 04/01/2023 38835 Therapy Proc 1/> Area 15Min Ea Completed 03/29/2023 48791 Therapy Proc 1/> Area 15Min Ea Completed 03/29/2023 92353 Therapy Proc, Neuromuscular Reeducation Of Movement Completed 03/29/2023 67908 Manual Tennis Director 1/> Area 15 Min Each Region Completed 03/27/2023 20423 Manual Tennis Director 1/> Area 15 Min Each Region Completed 03/27/2023 89744 Therapy Proc, Neuromuscular Reeducation Of Movement Completed 03/27/2023 90385 Therapy Proc 1/> Area 15Min Ea Completed 03/25/2023 25682 Manual Tennis Director 1/> Area 15 Min Each Region Completed 03/25/2023 54087 Therapy Proc, Neuromuscular Reeducation Of Movement Completed 03/25/2023 06924 Therapy Proc 1/> Area 15Min Ea Completed 03/22/2023 98643 Manual Tennis Director 1/> Area 15 Min Each Region Completed 03/22/2023 65607 Therapy Proc 1/> Area 15Min Ea Completed 03/22/2023 57805 Therapy Proc, Neuromuscular Reeducation Of Movement Completed 03/20/2023 16521 Manual Tennis Director 1/> Area 15 Min Each Region Completed 03/20/2023 30665 Therapy Proc, Neuromuscular Reeducation Of Movement Completed 03/20/2023 30283 Therapy Proc 1/> Area 15Min Ea Completed 03/18/2023 32351 Manual Tennis Director 1/> Area 15 Min Each Region Completed 03/18/2023 94219 Therapy Proc, Neuromuscular Reeducation Of Movement Completed 03/18/2023 22893 Therapy Proc 1/> Area 15Min Ea Completed 03/15/2023 36083 Manual Tennis Director 1/> Area 15 Min Each Region Completed 03/15/2023 52341 Therapy Proc, Neuromuscular Reeducation Of Movement Completed 03/15/2023 32951 Therapy Proc 1/> Area 15Min Ea Completed 03/13/2023 84554 Physical Therapy Evaluation Moderate Complexity Completed 03/13/2023 88078 Manual Tennis Director 1/> Area 15 Min Each Region Completed 03/13/2023 61859 Therapy Proc 1/> Area 15Min Ea Completed 02/18/2023 12117 Venipuncture Routine Complet ed Medical Devices Description No Information Available Encounters Type Date Location Provider Dx Diagnosis Office Visit 02/22/2023 10:30a Jonatan Almodovar DO I10 Essential (pr imary) hypertension 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 F41.1 Generalized anxiety disorder M15.0 Primary generalized (osteo)arthritis Assessments Date Code Description Provider 06/03/2023 R26.2 Difficulty in wa lking, not elsewhere classified GABRIELLE EspinozaT 06/03/2023 M25.511 Pain in right shoulder Oziel Garcia, DPT 05/31/2023 R26.2 Difficulty in wa lking, not elsewhere classified Aki Garcia DPT 05/31/2023 M25.511 Pain in right shoulder Oziel Garcia, DPT 05/29/2023 R26.2 Difficulty in wa lking, not elsewhere classified Aki Garcia DPT 05/29/2023 M25.511 Pain in right shoulder Oziel Garcia, GABRIELLET 05/27/2023 R26.2 Difficulty in wa lking, not elsewhere classified Aki Garcia DPT 05/27/2023 M25.511 Pain in right shoulder [...] lking, not elsewhere classified Aki Gracia, DPT 05/17/2023 M25.511 Pain in right shoulder [...] DPT 04/08/2023 M25.511 Pain in right shoulder Ozeil Garcia, DPT 04/05/2023 R26.2 Difficulty in wa [...] I10 Essential (primary) hyperten vickie [facility] 02/18/2023 E55.9 Vitamin D deficiency, unspec ified Dawson Almodovar, DO 02/18/2023 E55.9 Vitamin D deficiency, unspec ified [facility] 02/18/2023 E53.8 Deficiency of ot her specified B group vitamins Dawson Almodovar, 02/18/2023 E53.8 Deficiency of ot her specified B group vitamins [facility] Plan of Treatment Future Appointment(s):* 09/06/2023 10:30 am - Dawson Almodovar DO at [facility] * 08/28/2023 10:30 am - [facility] Functional Status Description No Information Available Mental Status Description No Information Available Referrals Description No Information Available"
--- OUTSIDE RECORDS SUMMARY | 2023-10-11 13:20 | External Medical Summary | Continuity of Care Document ---
Author Name AKI GARCIA DPT Address [address] [address] Phone [phone] Organization [facility], Address [address] [place] [address] Phone [phone] Problems Active Problems Provider Date Essential hypertension [...] SIG Qnty Indications Order ing Provider Date [id number] Tablets 2 tablets by mouth every day 30tabs R60.0 Fior Rodriguez MD, PhD 10/05/2022 Multi + [place]-3 Adult GummiesChewtabs 1 by mouth every day Dawson Almodovar DO 08/08/2022 Vitamin B ComplexTablets 1 by mouth every day Dawson Almodovar DO 08/08/2022 Losartan Potassium/Hydrochlorothi [id number] Tablets 1 by mouth every day 90tabs I10 Dawson Almodovar, DO 03/21/2020 Juice Plus Fibre` Dawson Almodovar, DO 02/19/2018 Aspirin Adult Low Kycr64ek Tablets DR 1 by mouth every day Unknown Citalopram Nkghbmdvmugl84gd Tablets 1 by mouth every day 90tabs F41.1 Dawson Almodovar, DO Vitamin D3 Maximum [id number] (5000 Ut) Capsules 1 by mouth once daily Unknown Immunizations CPT Code Status Date Vaccine Lot # [id number] Given 07/14/2009 Pneumococcal Vaccine/Pneu movax 23 60665 Refused 10/19/2022 Shingrix 25695 Refused 08/08/2022 Pneumococcal Conjugate-Pr evnar 20 85213 Refused 08/08/2022 Influenza Vac, Split, Preservative Free High Dose Age 65 & > [address] Refused 04/20/2022 Moderna Sars-Co v-2 (Cov-19) vacc,100 mcg/ 0.5 mL 12Y+EMR Doc Only 83995 Refused 10/16/2021 Influenza Virus Vaccine, Quadrivalent (Cciiv4), Derived From Cell 11484 Refused 10/16/2021 Shingrix 61358 Refused 10/16/2021 Pneumococcal Conjugate-Pr evnar 13 55076 Refused 03/20/2021 Pfizer Sars-Cov -2 (Cov-19) vacc 30mcg/0.3ML 12Y+ EMR Doc Only 70499 Refused 04/17/2019 Influenza Vacci ne, Inactivated, Subunit, Adjuvanted, For Intrmusc 22228 Refused 01/29/2019 Tdap (Tetanus, diphtheria & acel. pertussis) Adacel or Boostrix 40286 Refused 01/29/2019 Pneumococcal Conjugate-Pr evnar 13 Vital [...] 02/18/2023 [facility] [address] [place] [address] [phone] WBC 7.6 10^3/M3 3.1-9.2 RBC 4.19 10^6/M3 3.70-5.50 HGB 12.2 GR/DL 11.5-16.1 HCT 36.6 % 34.5-47.8 MCV 87.5 CUMICR 82.6-95.8 MCH 29.1 PICOGR 27.9-32.9 MCHC 33.3 % 32.6-35.4 RDW 14.9 % High 11.4-14.6 PLT 225 10^3/M3 140-350 MPV 8.8 CUMICR 7.0-10.6 %Neut 57.1 % 40.0-75.0 %Lymph 29.4 % 17.0-45.0 %Wolfe 8.6 % 1.0-11.0 %Eos 3.8 % 0.0-6.0 %Baso 1.1 % 0.0-2.0 #Neut 4.4 10^3/M3 1.5-8.0 #Lymph 2.2 10^3/M3 0.8-3.2 #Wolfe 0.7 10^3/M3 0.0-0.8 #Eos 0.3 10^3/m3 0.0-0.4 #Baso 0.1 10^3/m3 0.0-0.2 Comp. Met 02/18/2023 [facility] [address] [place] [address] [phone] Glucose 96 mg/dL 70-110 BUN 18 mg/dL [...] 02/18/2023 [facility] [address] [place] [address] [phone] Cholesterol 164 mg/dL 0-200 1 Triglyceride 79 mg/dL 0-150 2 HDLD 62 mg/dL See Comment 3 Measured LDL 99 mg/dL 0-130 4 Calc VLDL 15.8 mg/dL See Comment 5 Chol/HDL 2.6 RATIO See Comment 6 Non-HDL 102 mg/dL See Comment 7 Laboratory test finding 02/18/2023 [facility] [address] [place] [address] [phone] Vitd-25Oh 77 ng/mL 30-100 VB12 411 pg/mL [...] LDL Target Procedures Date Code Description Status 06/07/2023 99823 Manual Adjuster Piano Action 1/> Area 15 Min Each Region Completed 06/07/2023 61296 Therapeutic Activities Direc t, Each 15 Minutes Completed 06/07/2023 74820 Therapy Proc 1/ Area 15Min Ea Completed 06/07/2023 44395 Therapy Proc, Neuromuscular Reeducation Of Movement Completed 06/05/2023 82659 Therapeutic Activities Direc t, Each 15 Minutes Completed 06/05/2023 48018 Hot/Cold Pack Completed 06/05/2023 26424 Therapy Proc 1/> Area 15Min Ea Completed 06/05/2023 02653 Manual Adjuster Piano Action 1/> Area 15 Min Each Region Completed 06/05/2023 25965 Therapy Proc, Neuromuscular Reeducation Of Movement Completed 06/03/2023 82915 Therapeutic Activities Direc t, Each 15 Minutes Completed 06/03/2023 72373 Manual Adjuster Piano Action 1/> Area 15 Min Each Region Completed 06/03/2023 21013 Therapy Proc, Neuromuscular Reeducation Of Movement Completed 06/03/2023 51508 Therapy Proc 1/> Area 15Min Ea Completed 06/03/2023 38362 Hot/Cold Pack Completed 05/31/2023 56050 Therapeutic Activities Direc t, Each 15 Minutes Completed 05/31/2023 47613 Manual Adjuster Piano Action 1/> Area 15 Min Each Region Completed 05/31/2023 06345 Therapy Proc, Neuromuscular Reeducation Of Movement Completed 05/31/2023 66935 Hot/Cold Pack Completed 05/29/2023 78251 Therapy Proc, Neuromuscular Reeducation Of Movement Completed 05/29/2023 04579 Hot/Cold Pack Completed 05/29/2023 87131 Manual Adjuster Piano Action 1/> Area 15 Min Each Region Completed 05/29/2023 29422 Therapeutic Procedure Group Completed 05/29/2023 51949 Therapeutic Activities Direc t, Each 15 Minutes Completed 05/27/2023 55902 Therapeutic Activities Direc t, Each 15 Minutes Completed 05/27/2023 68036 Therapeutic Procedure Group Completed 05/27/2023 33049 Manual Adjuster Piano Action 1/> Area 15 Min Each Region Completed 05/27/2023 08239 Therapy Proc, Neuromuscular Reeducation Of Movement Completed 05/27/2023 69806 Hot/Cold Pack Completed 05/24/2023 98517 Therapeutic Activities Direc t, Each 15 Minutes Completed 05/24/2023 12562 Manual Adjuster Piano Action 1/> Area 15 Min Each Region Completed 05/24/2023 12448 Therapy Proc, Neuromuscular Reeducation Of Movement Completed 05/24/2023 68834 Therapy Proc 1/> Area 15Min Ea Completed 05/24/2023 76116 Hot/Cold Pack Completed 05/22/2023 38716 Hot/Cold Pack Completed 05/22/2023 48478 Therapy Proc 1/> Area 15Min Ea Completed 05/22/2023 57470 Manual Adjuster Piano Action 1/> Area 15 Min Each Region Completed 05/22/2023 98685 Therapeutic Activities Direc t, Each 15 Minutes Completed 05/22/2023 69690 Therapy Proc, Neuromuscular Reeducation Of Movement Completed 05/20/2023 45220 Therapeutic Activities Direc t, Each 15 Minutes Completed 05/20/2023 08932 Manual Adjuster Piano Action 1/> Area 15 Min Each Region Completed 05/20/2023 23863 Therapy Proc, Neuromuscular Reeducation Of Movement Completed 05/20/2023 50596 Therapy Proc 1/> Area 15Min Ea Completed 05/20/2023 99279 Hot/Cold Pack Completed 05/17/2023 84942 Therapeutic Activities Direc t, Each 15 Minutes Completed 05/17/2023 30395 Manual Adjuster Piano Action 1/> Area 15 Min Each Region Completed 05/17/2023 38162 Therapy Proc, Neuromuscular Reeducation Of Movement Completed 05/17/2023 41100 Therapy Proc 1/> Area 15Min Ea Completed 05/17/2023 02695 Hot/Cold Pack Completed 05/15/2023 23920 Hot/Cold Pack Completed 05/15/2023 34484 Therapy Proc 1/> Area 15Min Ea Completed 05/15/2023 05285 Manual Adjuster Piano Action 1/> Area 15 Min Each Region Completed 05/15/2023 87560 Therapeutic Activities Direc t, Each 15 Minutes Completed 05/15/2023 40694 Therapy Proc, Neuromuscular Reeducation Of Movement Completed 2023 67802 Therapeutic Activities Direc t, Each 15 Minutes Completed 2023 64976 Manual Adjuster Piano Action 1/> Area 15 Min Each Region Completed 2023 84971 Therapy Proc, Neuromuscular Reeducation Of Movement Completed 2023 23818 Therapy Proc 1/> Area 15Min Ea Completed 2023 87934 Hot/Cold Pack Completed 05/10/2023 25601 Therapy Proc, Neuromuscular Reeducation Of Movement Completed 05/10/2023 17771 Hot/Cold Pack Completed 05/10/2023 15462 Therapy Proc 1/> Area 15Min Ea Completed 05/10/2023 34991 Manual Adjuster Piano Action 1/> Area 15 Min Each Region Completed 05/10/2023 24269 Therapeutic Activities Direc t, Each 15 Minutes Completed 05/08/2023 81381 Therapeutic Activities Direc t, Each 15 Minutes Completed 05/08/2023 00961 Manual Adjuster Piano Action 1/> Area 15 Min Each Region Completed 05/08/2023 53026 Therapy Proc, Neuromuscular Reeducation Of Movement Completed 05/08/2023 25130 Therapy Proc 1/> Area 15Min Ea Completed 05/08/2023 74743 Hot/Cold Pack Completed 05/06/2023 75386 Hot/Cold Pack Completed 05/06/2023 75308 Therapy Proc 1/> Area 15Min Ea Completed 05/06/2023 77953 Manual Adjuster Piano Action 1/> Area 15 Min Each Region Completed 05/06/2023 67183 Therapeutic Activities Direc t, Each 15 Minutes Completed 05/06/2023 15052 Therapy Proc, Neuromuscular Reeducation Of Movement Completed 05/02/2023 00425 Therapeutic Activities Direc t, Each 15 Minutes Completed 05/02/2023 50900 Manual Adjuster Piano Action 1/> Area 15 Min Each Region Completed 05/02/2023 19894 Therapy Proc, Neuromuscular Reeducation Of Movement Completed 05/02/2023 95896 Therapy Proc 1/> Area 15Min Ea Completed 04/30/2023 98051 Hot/Cold Pack Completed 04/30/2023 20535 Therapy Proc 1/> Area 15Min Ea Completed 04/30/2023 92822 Therapy Proc, Neuromuscular Reeducation Of Movement Completed 04/30/2023 83473 Manual Adjuster Piano Action 1/> Area 15 Min Each Region Completed 04/24/2023 26979 Manual Adjuster Piano Action 1/> Area 15 Min Each Region Completed 04/24/2023 30743 Therapy Proc, Neuromuscular Reeducation Of Movement Completed 04/24/2023 19839 Therapy Proc 1/> Area 15Min Ea Completed 04/22/2023 60416 Manual Adjuster Piano Action 1/> Area 15 Min Each Region Completed 04/22/2023 17488 Therapy Proc, Neuromuscular Reeducation Of Movement Completed 04/22/2023 28712 Therapy Proc 1/> Area 15Min Ea Completed 04/22/2023 84391 Hot/Cold Pack Completed 04/19/2023 71270 Therapy Proc, Neuromuscular Reeducation Of Movement Completed 04/19/2023 77808 Hot/Cold Pack Completed 04/19/2023 56274 Therapy Proc 1/> Area 15Min Ea Completed 04/19/2023 55683 Manual Adjuster Piano Action 1/> Area 15 Min Each Region Completed 04/18/2023 48892 Manual Adjuster Piano Action 1/> Area 15 Min Each Region Completed 04/18/2023 39876 Therapy Proc, Neuromuscular Reeducation Of Movement Completed 04/18/2023 90907 Therapy Proc 1/> Area 15Min Ea Completed 04/15/2023 99357 Manual Adjuster Piano Action 1/> Area 15 Min Each Region Completed 04/15/2023 72824 Therapy Proc, Neuromuscular Reeducation Of Movement Completed 04/15/2023 21186 Therapy Proc 1/> Area 15Min Ea Completed 04/15/2023 47503 Hot/Cold Pack Completed 04/12/2023 69884 Manual Adjuster Piano Action 1/> Area 15 Min Each Region Completed 04/12/2023 19645 Therapy Proc, Neuromuscular Reeducation Of Movement Completed 04/12/2023 10807 Therapy Proc 1/> Area 15Min Ea Completed 04/12/2023 06343 Hot/Cold Pack Completed 04/10/2023 75455 Manual Adjuster Piano Action 1/> Area 15 Min Each Region Completed 04/10/2023 26233 Therapy Proc, Neuromuscular Reeducation Of Movement Completed 04/10/2023 53073 Therapy Proc 1/> Area 15Min Ea Completed 04/08/2023 70887 Therapy Proc 1/> Area 15Min Ea Completed 04/08/2023 06214 Manual Adjuster Piano Action 1/> Area 15 Min Each Region Completed 04/08/2023 45097 Therapy Proc, Neuromuscular Reeducation Of Movement Completed 04/05/2023 20739 Manual Adjuster Piano Action 1/> Area 15 Min Each Region Completed 04/05/2023 67723 Therapy Proc 1/> Area 15Min Ea Completed 04/05/2023 60092 Therapy Proc, Neuromuscular Reeducation Of Movement Completed 04/03/2023 08913 Manual Adjuster Piano Action 1/> Area 15 Min Each Region Completed 04/03/2023 85526 Therapy Proc, Neuromuscular Reeducation Of Movement Completed 04/03/2023 47044 Therapy Proc 1/> Area 15Min Ea Completed 04/01/2023 09231 Manual Adjuster Piano Action 1/> Area 15 Min Each Region Completed 04/01/2023 07599 Therapy Proc, Neuromuscular Reeducation Of Movement Completed 04/01/2023 65975 Therapy Proc 1/> Area 15Min Ea Completed 03/29/2023 64906 Manual Adjuster Piano Action 1/> Area 15 Min Each Region Completed 03/29/2023 68617 Therapy Proc, Neuromuscular Reeducation Of Movement Completed 03/29/2023 12563 Therapy Proc 1/> Area 15Min Ea Completed 03/27/2023 18235 Manual Adjuster Piano Action 1/> Area 15 Min Each Region Completed 03/27/2023 78255 Therapy Proc, Neuromuscular Reeducation Of Movement Completed 03/27/2023 43485 Therapy Proc 1/> Area 15Min Ea Completed 03/25/2023 06171 Therapy Proc 1/> Area 15Min Ea Completed 03/25/2023 60603 Therapy Proc, Neuromuscular Reeducation Of Movement Completed 03/25/2023 61173 Manual Adjuster Piano Action 1/> Area 15 Min Each Region Completed 03/22/2023 13100 Manual Adjuster Piano Action 1/> Area 15 Min Each Region Completed 03/22/2023 83064 Therapy Proc, Neuromuscular Reeducation Of Movement Completed 03/22/2023 85096 Therapy Proc 1/> Area 15Min Ea Completed 03/20/2023 87149 Manual Adjuster Piano Action 1/> Area 15 Min Each Region Completed 03/20/2023 48438 Therapy Proc, Neuromuscular Reeducation Of Movement Completed 03/20/2023 66410 Therapy Proc 1/> Area 15Min Ea Completed 03/18/2023 51616 Therapy Proc, Neuromuscular Reeducation Of Movement Completed 03/18/2023 86696 Therapy Proc 1/> Area 15Min Ea Completed 03/18/2023 85503 Manual Adjuster Piano Action 1/> Area 15 Min Each Region Completed 03/15/2023 46612 Manual Adjuster Piano Action 1/> Area 15 Min Each Region Completed 03/15/2023 78263 Therapy Proc, Neuromuscular Reeducation Of Movement Completed 03/15/2023 02965 Therapy Proc 1/> Area 15Min Ea Completed 03/13/2023 79686 Physical Therapy Evaluation Moderate Complexity Completed 03/13/2023 22883 Manual Adjuster Piano Action 1/> Area 15 Min Each Region Completed 03/13/2023 69809 Therapy Proc 1/> Area 15Min Ea Completed 02/18/2023 41340 Venipuncture Routine Complet ed Medical Devices Description No Information Available Encounters Type Date Location Provider Dx Diagnosis Office Visit 02/22/2023 10:30a Jonatan Almodovar DO I10 Essential (pr imary) hypertension 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 F41.1 Generalized anxiety disorder M15.0 Primary generalized (osteo)arthritis Assessments Date Code Description Provider 06/07/2023 R26.2 Difficulty in wa lking, not [...] DPT 03/29/2023 M25.511 Pain in right shoulder Oizel Garcia, DPT 03/27/2023 R26.2 Difficulty in wa [...] lking, not elsewhere classified Aki Garcia DPT 03/20/2023 M25.511 Pain in right shoulder Oziel Gracia, DPT 03/18/2023 R26.2 Difficulty in wa lking, not elsewhere classified Restoration Smith, DPT 03/18/2023 M25.511 Pain in right shoulder Oziel Garcia, DPT 03/15/2023 R26.2 Difficulty in wa lking, not elsewhere classified Restoration Smith, DPT 03/15/2023 M25.511 Pain in right [...] I10 Essential (primary) hyperten vickie [facility] [place] 02/18/2023 E55.9 Vitamin D deficiency, unspec ified Dawson Almodovar, DO 02/18/2023 E55.9 Vitamin D deficiency, unspec ified [facility] - [place] 02/18/2023 E53.8 Deficiency of ot her specified B group vitamins Dawson Almodovar, DO 02/18/2023 E53.8 Deficiency of ot her specified B group vitamins [facility] - [place] Plan of Treatment Future Appointment(s):* 09/06/2023 10:30 am - Dawson Almodovar DO at [place] * 08/28/2023 10:30 am - [facility] [place] [facility] [place] Functional Status Description No Information Available Mental Status Description No Information Available Referrals Description No Information Available"
--- OUTSIDE RECORDS SUMMARY | 2023-10-11 13:20 | External Medical Summary | Continuity of Care Document ---
Author Name AKI GARCIA DPT Address [address] [facility], [address] [place] [id number] Phone [phone] Organization [facility], Address [address] [place] [address] Phone [phone] Problems Active Problems Provider Date Essential hypertension [...] SIG Qnty Indications Order ing Provider Date [id number] Tablets 2 tablets by mouth every day 30tabs R60.0 Dawson Almodovar DO 10/05/2022 Multi + [place]-3 Adult GummiesChewtabs 1 by mouth every day Dawson Almodovar DO 08/08/2022 Vitamin B ComplexTablets 1 by mouth every day Dawson Almodovar DO 08/08/2022 Losartan Potassium/Hydrochlorothi [id number] Tablets 1 by mouth every day 90tabs I10 Dawson Almodovar, DO 03/21/2020 Juice Plus Fibre` Dawson Almodovar, DO 02/19/2018 Aspirin Adult Low Nznc90dr Tablets DR 1 by mouth every day Unknown Citalopram Jbfpljzljkse98th Tablets 1 by mouth every day 90tabs F41.1 Dawson Almodovar, DO Vitamin D3 Maximum Eyapfaso800uye (5000 Ut) Capsules 1 by mouth once daily Unknown Immunizations CPT Code Status Date Vaccine Lot # [id number] Given 07/14/2009 Pneumococcal Vaccine/Pneu movax 23 [id number] Refused 10/19/2022 Shingrix 93562 Refused 08/08/2022 Pneumococcal Conjugate-Pr evnar 20 86813 Refused 08/08/2022 Influenza Vac, Split, Preservative Free High Dose Age 65 & > [address]48[address] Refused 04/20/2022 Moderna Sars-Co v-2 (Cov-19) vacc,100 mcg/ 0.5 mL 12Y+EMR Doc Only 05899 Refused 10/16/2021 Influenza Virus Vaccine, Quadrivalent (Cciiv4), Derived From Cell 77804 Refused 10/16/2021 Shingrix 16254 Refused 10/16/2021 Pneumococcal Conjugate-Pr evnar 13 71801 Refused 03/20/2021 Pfizer Sars-Cov -2 (Cov-19) vacc 30mcg/0.3ML 12Y+ EMR Doc Only 71575 Refused 04/17/2019 Influenza Vacci ne, Inactivated, Subunit, Adjuvanted, For Intrmusc 13791 Refused 01/29/2019 Tdap (Tetanus, diphtheria & acel. pertussis) Adacel or Boostrix 14348 Refused 01/29/2019 Pneumococcal Conjugate-Pr evnar 13 Vital [...] H/L Range N ote CBC W/Diff 02/18/2023 [facility] [address] [place] [address] [phone] WBC 7.6 10^3/M3 3.1-9.2 RBC 4.19 10^6/M3 3.70-5.50 HGB 12.2 GR/DL 11.5-16.1 HCT 36.6 % 34.5-47.8 MCV 87.5 CUMICR 82.6-95.8 MCH 29.1 PICOGR 27.9-32.9 MCHC 33.3 % 32.6-35.4 RDW 14.9 % High 11.4-14.6 PLT 225 10^3/M3 140-350 MPV 8.8 CUMICR 7.0-10.6 %Neut 57.1 % 40.0-75.0 %Lymph 29.4 % 17.0-45.0 %Noble 8.6 % 1.0-11.0 %Eos 3.8 % 0.0-6.0 %Baso 1.1 % 0.0-2.0 #Neut 4.4 10^3/M3 1.5-8.0 #Lymph 2.2 10^3/M3 0.8-3.2 #Noble 0.7 10^3/M3 0.0-0.8 #Eos 0.3 10^3/m3 0.0-0.4 #Baso 0.1 10^3/m3 0.0-0.2 Comp. Met 02/18/2023 [facility] [address] [place], [place] [id number] [phone] Glucose 96 mg/dL 70-110 BUN 18 mg/dL [...] 2.0-3.4 GFR 72 ML/MIN/1.73SQM >60 Lipid 02/18/2023 [facility] [address] [place] [address] [phone] Cholesterol 164 mg/dL 0-200 1 Triglyceride 79 mg/dL 0-150 2 HDLD 62 mg/dL See Comment 3 Measured LDL 99 mg/dL 0-130 4 Calc VLDL 15.8 mg/dL See Comment 5 Chol/HDL 2.6 RATIO See Comment 6 Non-HDL 102 mg/dL See Comment 7 Laboratory test finding 02/18/2023 [facility] [address] [place] [address] [phone] Vitd-25Oh 77 ng/mL 30-100 VB12 411 pg/mL [...] Target Procedures Date Code Description Status 06/17/2023 62264 Manual Director Of Database Marketing 1/> Area 15 Min Each Region Completed 06/17/2023 04570 Therapy Proc, Neuromuscular Reeducation Of Movement Completed 06/17/2023 98282 Therapy Proc 1/> Area 15Min Ea Completed 06/17/2023 59932 Hot/Cold Pack Completed 06/17/2023 26894 Therapeutic Activities Direc t, Each 15 Minutes Completed 06/14/2023 74672 Therapeutic Activities Direc t, Each 15 Minutes Completed 06/14/2023 23135 Manual Director Of Database Marketing 1/> Area 15 Min Each Region Completed 06/14/2023 88042 Therapy Proc, Neuromuscular Reeducation Of Movement Completed 06/14/2023 31919 Therapy Proc 1/> Area 15Min Ea Completed 06/14/2023 64252 Hot/Cold Pack Completed 06/12/2023 38947 Manual Director Of Database Marketing 1/> Area 15 Min Each Region Completed 06/12/2023 07255 Hot/Cold Pack Completed 06/12/2023 38471 Therapy Proc 1/> Area 15Min Ea Completed 06/12/2023 37131 Therapy Proc, Neuromuscular Reeducation Of Movement Completed 06/12/2023 12338 Therapeutic Activities Direc t, Each 15 Minutes Completed 06/07/2023 89634 Therapeutic Activities Direc t, Each 15 Minutes Completed 06/07/2023 08114 Manual Director Of Database Marketing 1/> Area 15 Min Each Region Completed 06/07/2023 64641 Therapy Proc, Neuromuscular Reeducation Of Movement Completed 06/07/2023 53420 Therapy Proc 1/> Area 15Min Ea Completed 06/05/2023 72849 Manual Director Of Database Marketing 1/> Area 15 Min Each Region Completed 06/05/2023 53253 Hot/Cold Pack Completed 06/05/2023 78829 Therapy Proc 1/> Area 15Min Ea Completed 06/05/2023 22679 Therapy Proc, Neuromuscular Reeducation Of Movement Completed 06/05/2023 80166 Therapeutic Activities Direc t, Each 15 Minutes Completed 06/03/2023 10593 Therapeutic Activities Direc t, Each 15 Minutes Completed 06/03/2023 28710 Manual Director Of Database Marketing 1/> Area 15 Min Each Region Completed 06/03/2023 86796 Therapy Proc, Neuromuscular Reeducation Of Movement Completed 06/03/2023 36543 Therapy Proc 1/> Area 15Min Ea Completed 06/03/2023 03601 Hot/Cold Pack Completed 05/31/2023 35513 Therapeutic Activities Direc t, Each 15 Minutes Completed 05/31/2023 24634 Manual Director Of Database Marketing 1/> Area 15 Min Each Region Completed 05/31/2023 43324 Therapy Proc, Neuromuscular Reeducation Of Movement Completed 05/31/2023 24740 Hot/Cold Pack Completed 05/29/2023 54171 Therapeutic Activities Direc t, Each 15 Minutes Completed 05/29/2023 52829 Therapeutic Procedure Group Completed 05/29/2023 69561 Manual Director Of Database Marketing 1/> Area 15 Min Each Region Completed 05/29/2023 05141 Therapy Proc, Neuromuscular Reeducation Of Movement Completed 05/29/2023 45125 Hot/Cold Pack Completed 05/27/2023 14363 Therapy Proc, Neuromuscular Reeducation Of Movement Completed 05/27/2023 72107 Hot/Cold Pack Completed 05/27/2023 39628 Manual Director Of Database Marketing 1/> Area 15 Min Each Region Completed 05/27/2023 19649 Therapeutic Procedure Group Completed 05/27/2023 71941 Therapeutic Activities Direc t, Each 15 Minutes Completed 05/24/2023 30858 Therapeutic Activities Direc t, Each 15 Minutes Completed 05/24/2023 34464 Manual Director Of Database Marketing 1/> Area 15 Min Each Region Completed 05/24/2023 91071 Therapy Proc, Neuromuscular Reeducation Of Movement Completed 05/24/2023 92968 Therapy Proc 1/> Area 15Min Ea Completed 05/24/2023 10195 Hot/Cold Pack Completed 05/22/2023 08325 Therapy Proc, Neuromuscular Reeducation Of Movement Completed 05/22/2023 84099 Hot/Cold Pack Completed 05/22/2023 02511 Therapy Proc 1/> Area 15Min Ea Completed 05/22/2023 63911 Manual Director Of Database Marketing 1/> Area 15 Min Each Region Completed 05/22/2023 39763 Therapeutic Activities Direc t, Each 15 Minutes Completed 05/20/2023 30870 Therapeutic Activities Direc t, Each 15 Minutes Completed 05/20/2023 49010 Manual Director Of Database Marketing 1/> Area 15 Min Each Region Completed 05/20/2023 28208 Therapy Proc, Neuromuscular Reeducation Of Movement Completed 05/20/2023 02207 Therapy Proc 1/> Area 15Min Ea Completed 05/20/2023 15362 Hot/Cold Pack Completed 05/17/2023 48261 Therapy Proc 1/> Area 15Min Ea Completed 05/17/2023 60527 Hot/Cold Pack Completed 05/17/2023 48299 Therapy Proc, Neuromuscular Reeducation Of Movement Completed 05/17/2023 55276 Therapeutic Activities Direc t, Each 15 Minutes Completed 05/17/2023 47206 Manual Director Of Database Marketing 1/> Area 15 Min Each Region Completed 05/15/2023 87087 Therapeutic Activities Direc t, Each 15 Minutes Completed 05/15/2023 45568 Manual Director Of Database Marketing 1/> Area 15 Min Each Region Completed 05/15/2023 19985 Therapy Proc, Neuromuscular Reeducation Of Movement Completed 05/15/2023 48716 Therapy Proc 1/> Area 15Min Ea Completed 05/15/2023 17181 Hot/Cold Pack Completed 2023 65720 Therapy Proc, Neuromuscular Reeducation Of Movement Completed 2023 38200 Hot/Cold Pack Completed 2023 93036 Therapy Proc 1/> Area 15Min Ea Completed 2023 70841 Manual Director Of Database Marketing 1/> Area 15 Min Each Region Completed 2023 56890 Therapeutic Activities Direc t, Each 15 Minutes Completed 05/10/2023 42722 Therapeutic Activities Direc t, Each 15 Minutes Completed 05/10/2023 02532 Manual Director Of Database Marketing 1/> Area 15 Min Each Region Completed 05/10/2023 87049 Therapy Proc, Neuromuscular Reeducation Of Movement Completed 05/10/2023 40728 Therapy Proc 1/> Area 15Min Ea Completed 05/10/2023 63800 Hot/Cold Pack Completed 05/08/2023 95324 Therapy Proc 1/> Area 15Min Ea Completed 05/08/2023 61933 Hot/Cold Pack Completed 05/08/2023 11684 Manual Director Of Database Marketing 1/> Area 15 Min Each Region Completed 05/08/2023 26237 Therapeutic Activities Direc t, Each 15 Minutes Completed 05/08/2023 48124 Therapy Proc, Neuromuscular Reeducation Of Movement Completed 05/06/2023 33231 Manual Director Of Database Marketing 1/> Area 15 Min Each Region Completed 05/06/2023 65319 Therapeutic Activities Direc t, Each 15 Minutes Completed 05/06/2023 85430 Hot/Cold Pack Completed 05/06/2023 95914 Therapy Proc 1/> Area 15Min Ea Completed 05/06/2023 59692 Therapy Proc, Neuromuscular Reeducation Of Movement Completed 05/02/2023 67021 Therapeutic Activities Direc t, Each 15 Minutes Completed 05/02/2023 93047 Manual Director Of Database Marketing 1/> Area 15 Min Each Region Completed 05/02/2023 55198 Therapy Proc, Neuromuscular Reeducation Of Movement Completed 05/02/2023 59659 Therapy Proc 1/> Area 15Min Ea Completed 04/30/2023 50246 Manual Director Of Database Marketing 1/> Area 15 Min Each Region Completed 04/30/2023 98808 Therapy Proc, Neuromuscular Reeducation Of Movement Completed 04/30/2023 64249 Therapy Proc 1/> Area 15Min Ea Completed 04/30/2023 97894 Hot/Cold Pack Completed 04/24/2023 83616 Manual Director Of Database Marketing 1/> Area 15 Min Each Region Completed 04/24/2023 40146 Therapy Proc, Neuromuscular Reeducation Of Movement Completed 04/24/2023 61035 Therapy Proc 1/> Area 15Min Ea Completed 04/22/2023 63662 Hot/Cold Pack Completed 04/22/2023 69054 Therapy Proc 1/> Area 15Min Ea Completed 04/22/2023 73313 Manual Director Of Database Marketing 1/> Area 15 Min Each Region Completed 04/22/2023 35390 Therapy Proc, Neuromuscular Reeducation Of Movement Completed 04/19/2023 12082 Manual Director Of Database Marketing 1/> Area 15 Min Each Region Completed 04/19/2023 59222 Therapy Proc, Neuromuscular Reeducation Of Movement Completed 04/19/2023 14087 Therapy Proc 1/> Area 15Min Ea Completed 04/19/2023 75505 Hot/Cold Pack Completed 04/18/2023 80112 Manual Director Of Database Marketing 1/> Area 15 Min Each Region Completed 04/18/2023 88539 Therapy Proc, Neuromuscular Reeducation Of Movement Completed 04/18/2023 78616 Therapy Proc 1/> Area 15Min Ea Completed 04/15/2023 63999 Manual Director Of Database Marketing 1/> Area 15 Min Each Region Completed 04/15/2023 89176 Hot/Cold Pack Completed 04/15/2023 15514 Therapy Proc 1/> Area 15Min Ea Completed 04/15/2023 85037 Therapy Proc, Neuromuscular Reeducation Of Movement Completed 04/12/2023 39160 Manual Director Of Database Marketing 1/> Area 15 Min Each Region Completed 04/12/2023 37768 Therapy Proc, Neuromuscular Reeducation Of Movement Completed 04/12/2023 33017 Therapy Proc 1/> Area 15Min Ea Completed 04/12/2023 66426 Hot/Cold Pack Completed 04/10/2023 60597 Therapy Proc 1/> Area 15Min Ea Completed 04/10/2023 37345 Therapy Proc, Neuromuscular Reeducation Of Movement Completed 04/10/2023 00511 Manual Director Of Database Marketing 1/> Area 15 Min Each Region Completed 04/08/2023 46705 Manual Director Of Database Marketing 1/> Area 15 Min Each Region Completed 04/08/2023 28295 Therapy Proc, Neuromuscular Reeducation Of Movement Completed 04/08/2023 41613 Therapy Proc 1/> Area 15Min Ea Completed 04/05/2023 22940 Manual Director Of Database Marketing 1/> Area 15 Min Each Region Completed 04/05/2023 58652 Therapy Proc, Neuromuscular Reeducation Of Movement Completed 04/05/2023 84286 Therapy Proc 1/> Area 15Min Ea Completed 04/03/2023 67700 Manual Director Of Database Marketing 1/> Area 15 Min Each Region Completed 04/03/2023 78747 Therapy Proc, Neuromuscular Reeducation Of Movement Completed 04/03/2023 21642 Therapy Proc 1/> Area 15Min Ea Completed 04/01/2023 43223 Manual Director Of Database Marketing 1/> Area 15 Min Each Region Completed 04/01/2023 26945 Therapy Proc 1/> Area 15Min Ea Completed 04/01/2023 71800 Therapy Proc, Neuromuscular Reeducation Of Movement Completed 03/29/2023 11558 Manual Director Of Database Marketing 1/> Area 15 Min Each Region Completed 03/29/2023 83751 Therapy Proc, Neuromuscular Reeducation Of Movement Completed 03/29/2023 67262 Therapy Proc 1/> Area 15Min Ea Completed 03/27/2023 56493 Manual Director Of Database Marketing 1/> Area 15 Min Each Region Completed 03/27/2023 45556 Therapy Proc, Neuromuscular Reeducation Of Movement Completed 03/27/2023 42417 Therapy Proc 1/> Area 15Min Ea Completed 03/25/2023 00312 Manual Director Of Database Marketing 1/> Area 15 Min Each Region Completed 03/25/2023 82467 Therapy Proc 1/> Area 15Min Ea Completed 03/25/2023 17391 Therapy Proc, Neuromuscular Reeducation Of Movement Completed 03/22/2023 00162 Manual Director Of Database Marketing 1/> Area 15 Min Each Region Completed 03/22/2023 32653 Therapy Proc, Neuromuscular Reeducation Of Movement Completed 03/22/2023 70616 Therapy Proc 1/> Area 15Min Ea Completed 03/20/2023 34090 Manual Director Of Database Marketing 1/> Area 15 Min Each Region Completed 03/20/2023 19242 Therapy Proc, Neuromuscular Reeducation Of Movement Completed 03/20/2023 66756 Therapy Proc 1/> Area 15Min Ea Completed 03/18/2023 63305 Therapy Proc, Neuromuscular Reeducation Of Movement Completed 03/18/2023 45619 Therapy Proc 1/> Area 15Min Ea Completed 03/18/2023 76487 Manual Director Of Database Marketing 1/> Area 15 Min Each Region Completed 03/15/2023 30054 Manual Director Of Database Marketing 1/> Area 15 Min Each Region Completed 03/15/2023 42468 Therapy Proc, Neuromuscular Reeducation Of Movement Completed 03/15/2023 26054 Therapy Proc 1/> Area 15Min Ea Completed 03/13/2023 00718 Physical Therapy Evaluation Moderate Complexity Completed 03/13/2023 10789 Manual Director Of Database Marketing 1/> Area 15 Min Each Region Completed 03/13/2023 57160 Therapy Proc 1/> Area 15Min Ea Completed 02/18/2023 82784 Venipuncture Routine Complet ed Medical Devices Description [...] 04/08/2023 M25.511 Pain in right shoulder Oziel Gacria, DPT 04/05/2023 R26.2 Difficulty in wa lking, [...] I10 Essential (primary) [facility] [place] 02/18/2023 E55.9 Vitamin D deficiency, unspec ified Dawson Almodovar, DO 02/18/2023 E55.9 Vitamin D deficiency, unspec ified [facility] [place] 02/18/2023 E53.8 Deficiency of ot her specified B group vitamins Dawson Almodovar, DO 02/18/2023 E53.8 Deficiency of ot her specified B group vitamins [facility] [place] Plan of Treatment Future Appointment(s):* 09/06/2023 10:30 am - Dawson Almodovar DO at [place] * 08/28/2023 10:30 am - [facility] [place] Functional Status Description No Information Available Mental Status Description No Information Available Referrals Description No Information Available"
--- OUTSIDE RECORDS SUMMARY | 2023-10-11 13:20 | External Medical Summary | Continuity of Care Document ---
Author Name AKI GARCIA DPT Address [address] [address] Phone [phone] Organization [facility], Address [address] [place] [address] Phone [phone] Problems Active Problems Provider Date Essential hypertension [...] SIG Qnty Indications Order ing Provider Date [id number] Tablets 2 tablets by mouth every day 30tabs R60.0 Fior Rodriguez MD, PhD 10/05/2022 Multi + [place]-3 Adult GummiesChewtabs 1 by mouth every day Dawson Almodovar DO 08/08/2022 Vitamin B ComplexTablets 1 by mouth every day Dawson Almodovar DO 08/08/2022 Losartan Potassium/Hydrochlorothi [id number] Tablets 1 by mouth every day 90tabs I10 Dawson Almodovar, DO 03/21/2020 Juice Plus Fibre` Dawson Almodovar, DO 02/19/2018 Aspirin Adult Low Bctq97sf Tablets DR 1 by mouth every day Unknown Citalopram [id number] Tablets 1 by mouth every day 90tabs F41.1 Dawson Almodovar, DO Vitamin D3 Maximum [id number] (5000 Ut) Capsules 1 by mouth once daily Unknown Immunizations CPT Code Status Date Vaccine Lot # [id number] Given 07/14/2009 Pneumococcal Vaccine/Pneu movax 23 12619 Refused 10/19/2022 Shingrix 03820 Refused 08/08/2022 Pneumococcal Conjugate-Pr evnar 20 44598 Refused 08/08/2022 Influenza Vac, Split, Preservative Free High Dose Age 65 & > [id number] Refused 04/20/2022 Moderna Sars-Co v-2 (Cov-19) vacc,100 mcg/ 0.5 mL 12Y+EMR Doc Only 03847 Refused 10/16/2021 Influenza Virus Vaccine, Quadrivalent (Cciiv4), Derived From Cell 83058 Refused 10/16/2021 Shingrix 74512 Refused 10/16/2021 Pneumococcal Conjugate-Pr evnar 13 [id number] Refused 03/20/2021 Pfizer Sars-Cov -2 (Cov-19) vacc 30mcg/0.3ML 12Y+ EMR Doc Only 15635 Refused 04/17/2019 Influenza Vacci ne, Inactivated, Subunit, Adjuvanted, For Intrmusc 46102 Refused 01/29/2019 Tdap (Tetanus, diphtheria & acel. pertussis) Adacel or Boostrix 58981 Refused 01/29/2019 Pneumococcal Conjugate-Pr evnar 13 Vital [...] CBC W/Diff 02/18/2023 [facility] [address] [place] [address] [phone] WBC 7.6 10^3/M3 3.1-9.2 RBC 4.19 10^6/M3 3.70-5.50 HGB 12.2 GR/DL 11.5-16.1 HCT 36.6 % 34.5-47.8 MCV 87.5 CUMICR 82.6-95.8 MCH 29.1 PICOGR 27.9-32.9 MCHC 33.3 % 32.6-35.4 RDW 14.9 % High 11.4-14.6 PLT 225 10^3/M3 140-350 MPV 8.8 CUMICR 7.0-10.6 %Neut 57.1 % 40.0-75.0 %Lymph 29.4 % 17.0-45.0 %[place] 8.6 % 1.0-11.0 %Eos 3.8 % 0.0-6.0 %Baso 1.1 % 0.0-2.0 #Neut 4.4 10^3/M3 1.5-8.0 #Lymph 2.2 10^3/M3 0.8-3.2 #[place] 0.7 10^3/M3 0.0-0.8 #Eos 0.3 10^3/m3 0.0-0.4 #Baso 0.1 10^3/m3 0.0-0.2 Comp. Met 02/18/2023 [facility] [address] [place] [address] [phone] Glucose 96 mg/dL 70-110 BUN 18 mg/dL [...] >60 Lipid 02/18/2023 [facility] [address] [place] [address] [phone] Cholesterol 164 mg/dL 0-200 1 Triglyceride 79 mg/dL 0-150 2 HDLD 62 mg/dL See Comment 3 Measured LDL 99 mg/dL 0-130 4 Calc VLDL 15.8 mg/dL See Comment 5 Chol/HDL 2.6 RATIO See Comment 6 Non-HDL 102 mg/dL See Comment 7 Laboratory test finding 02/18/2023 [facility] [address] [place] [address] [phone] Vitd-25Oh 77 ng/mL 30-100 VB12 411 pg/mL [...] LDL Target Procedures Date Code Description Status 06/05/2023 98204 Manual Well Site Drilling Engineer 1/> Area 15 Min Each Region Completed 06/05/2023 98396 Therapy Proc, Neuromuscular Reeducation Of Movement Completed 06/05/2023 04597 Therapy Proc 1/> Area 15Min Ea Completed 06/05/2023 56587 Hot/Cold Pack Completed 06/05/2023 56439 Therapeutic Activities Direc t, Each 15 Minutes Completed 06/03/2023 66146 Therapeutic Activities Direc t, Each 15 Minutes Completed 06/03/2023 65536 Manual Well Site Drilling Engineer 1/> Area 15 Min Each Region Completed 06/03/2023 20048 Therapy Proc, Neuromuscular Reeducation Of Movement Completed 06/03/2023 82515 Therapy Proc 1/> Area 15Min Ea Completed 06/03/2023 14540 Hot/Cold Pack Completed 05/31/2023 06050 Therapeutic Activities Direc t, Each 15 Minutes Completed 05/31/2023 63873 Manual Well Site Drilling Engineer 1/> Area 15 Min Each Region Completed 05/31/2023 61406 Therapy Proc, Neuromuscular Reeducation Of Movement Completed 05/31/2023 65444 Hot/Cold Pack Completed 05/29/2023 32375 Hot/Cold Pack Completed 05/29/2023 37304 Therapy Proc, Neuromuscular Reeducation Of Movement Completed 05/29/2023 87155 Therapeutic Procedure Group Completed 05/29/2023 57017 Therapeutic Activities Direc t, Each 15 Minutes Completed 05/29/2023 24970 Manual Well Site Drilling Engineer 1/> Area 15 Min Each Region Completed 05/27/2023 04050 Therapeutic Activities Direc t, Each 15 Minutes Completed 05/27/2023 26519 Therapeutic Procedure Group Completed 05/27/2023 47415 Manual Well Site Drilling Engineer 1/> Area 15 Min Each Region Completed 05/27/2023 59530 Therapy Proc, Neuromuscular Reeducation Of Movement Completed 05/27/2023 47638 Hot/Cold Pack Completed 05/24/2023 49983 Therapy Proc, Neuromuscular Reeducation Of Movement Completed 05/24/2023 39410 Hot/Cold Pack Completed 05/24/2023 03594 Therapy Proc 1/> Area 15Min Ea Completed 05/24/2023 84398 Manual Well Site Drilling Engineer 1/> Area 15 Min Each Region Completed 05/24/2023 26506 Therapeutic Activities Direc t, Each 15 Minutes Completed 05/22/2023 83379 Therapeutic Activities Direc t, Each 15 Minutes Completed 05/22/2023 89312 Manual Well Site Drilling Engineer 1/> Area 15 Min Each Region Completed 05/22/2023 47597 Therapy Proc, Neuromuscular Reeducation Of Movement Completed 05/22/2023 51586 Therapy Proc 1/> Area 15Min Ea Completed 05/22/2023 09524 Hot/Cold Pack Completed 05/20/2023 98987 Manual Well Site Drilling Engineer 1/> Area 15 Min Each Region Completed 05/20/2023 03518 Hot/Cold Pack Completed 05/20/2023 99587 Therapy Proc 1/> Area 15Min Ea Completed 05/20/2023 36516 Therapy Proc, Neuromuscular Reeducation Of Movement Completed 05/20/2023 87552 Therapeutic Activities Direc t, Each 15 Minutes Completed 05/17/2023 27983 Manual Well Site Drilling Engineer 1/> Area 15 Min Each Region Completed 05/17/2023 49264 Therapy Proc, Neuromuscular Reeducation Of Movement Completed 05/17/2023 91172 Therapy Proc 1/> Area 15Min Ea Completed 05/17/2023 02329 Hot/Cold Pack Completed 05/17/2023 88728 Therapeutic Activities Direc t, Each 15 Minutes Completed 05/15/2023 74090 Hot/Cold Pack Completed 05/15/2023 91882 Therapy Proc 1/> Area 15Min Ea Completed 05/15/2023 04992 Therapy Proc, Neuromuscular Reeducation Of Movement Completed 05/15/2023 01646 Manual Well Site Drilling Engineer 1/> Area 15 Min Each Region Completed 05/15/2023 61930 Therapeutic Activities Direc t, Each 15 Minutes Completed 2023 52335 Therapeutic Activities Direc t, Each 15 Minutes Completed 2023 18355 Manual Well Site Drilling Engineer 1/> Area 15 Min Each Region Completed 2023 93847 Therapy Proc, Neuromuscular Reeducation Of Movement Completed 2023 24046 Therapy Proc 1/> Area 15Min Ea Completed 2023 60178 Hot/Cold Pack Completed 05/10/2023 75911 Therapeutic Activities Direc t, Each 15 Minutes Completed 05/10/2023 10482 Hot/Cold Pack Completed 05/10/2023 94109 Therapy Proc 1/> Area 15Min Ea Completed 05/10/2023 48005 Therapy Proc, Neuromuscular Reeducation Of Movement Completed 05/10/2023 54225 Manual Well Site Drilling Engineer 1/> Area 15 Min Each Region Completed 05/08/2023 04596 Therapeutic Activities Direc t, Each 15 Minutes Completed 05/08/2023 57034 Manual Well Site Drilling Engineer 1/> Area 15 Min Each Region Completed 05/08/2023 60198 Therapy Proc, Neuromuscular Reeducation Of Movement Completed 05/08/2023 01211 Therapy Proc 1/> Area 15Min Ea Completed 05/08/2023 81854 Hot/Cold Pack Completed 05/06/2023 75928 Therapeutic Activities Direc t, Each 15 Minutes Completed 05/06/2023 50716 Manual Well Site Drilling Engineer 1/> Area 15 Min Each Region Completed 05/06/2023 40251 Therapy Proc, Neuromuscular Reeducation Of Movement Completed 05/06/2023 28456 Therapy Proc 1/> Area 15Min Ea Completed 05/06/2023 67136 Hot/Cold Pack Completed 05/02/2023 16569 Therapy Proc 1/> Area 15Min Ea Completed 05/02/2023 15798 Therapeutic Activities Direc t, Each 15 Minutes Completed 05/02/2023 11401 Manual Well Site Drilling Engineer 1/> Area 15 Min Each Region Completed 05/02/2023 69960 Therapy Proc, Neuromuscular Reeducation Of Movement Completed 04/30/2023 22306 Manual Well Site Drilling Engineer 1/> Area 15 Min Each Region Completed 04/30/2023 41904 Therapy Proc, Neuromuscular Reeducation Of Movement Completed 04/30/2023 64046 Therapy Proc 1/> Area 15Min Ea Completed 04/30/2023 27417 Hot/Cold Pack Completed 04/24/2023 99112 Manual Well Site Drilling Engineer 1/> Area 15 Min Each Region Completed 04/24/2023 62567 Therapy Proc, Neuromuscular Reeducation Of Movement Completed 04/24/2023 04506 Therapy Proc 1/> Area 15Min Ea Completed 04/22/2023 28540 Manual Well Site Drilling Engineer 1/> Area 15 Min Each Region Completed 04/22/2023 99813 Hot/Cold Pack Completed 04/22/2023 65990 Therapy Proc 1/> Area 15Min Ea Completed 04/22/2023 04686 Therapy Proc, Neuromuscular Reeducation Of Movement Completed 04/19/2023 75566 Manual Well Site Drilling Engineer 1/> Area 15 Min Each Region Completed 04/19/2023 63538 Therapy Proc, Neuromuscular Reeducation Of Movement Completed 04/19/2023 39068 Therapy Proc 1/> Area 15Min Ea Completed 04/19/2023 87843 Hot/Cold Pack Completed 04/18/2023 66155 Therapy Proc, Neuromuscular Reeducation Of Movement Completed 04/18/2023 74958 Therapy Proc 1/> Area 15Min Ea Completed 04/18/2023 97978 Manual Well Site Drilling Engineer 1/> Area 15 Min Each Region Completed 04/15/2023 08910 Manual Well Site Drilling Engineer 1/> Area 15 Min Each Region Completed 04/15/2023 20965 Therapy Proc, Neuromuscular Reeducation Of Movement Completed 04/15/2023 52125 Therapy Proc 1/> Area 15Min Ea Completed 04/15/2023 11467 Hot/Cold Pack Completed 04/12/2023 55989 Hot/Cold Pack Completed 04/12/2023 37539 Therapy Proc 1/> Area 15Min Ea Completed 04/12/2023 84688 Therapy Proc, Neuromuscular Reeducation Of Movement Completed 04/12/2023 01346 Manual Well Site Drilling Engineer 1/> Area 15 Min Each Region Completed 04/10/2023 33790 Manual Well Site Drilling Engineer 1/> Area 15 Min Each Region Completed 04/10/2023 88922 Therapy Proc, Neuromuscular Reeducation Of Movement Completed 04/10/2023 33982 Therapy Proc 1/> Area 15Min Ea Completed 04/08/2023 28889 Manual Well Site Drilling Engineer 1/> Area 15 Min Each Region Completed 04/08/2023 29609 Therapy Proc, Neuromuscular Reeducation Of Movement Completed 04/08/2023 14159 Therapy Proc 1/> Area 15Min Ea Completed 04/05/2023 53725 Manual Well Site Drilling Engineer 1/> Area 15 Min Each Region Completed 04/05/2023 27843 Therapy Proc 1/> Area 15Min Ea Completed 04/05/2023 18744 Therapy Proc, Neuromuscular Reeducation Of Movement Completed 04/03/2023 54156 Manual Well Site Drilling Engineer 1/> Area 15 Min Each Region Completed 04/03/2023 38243 Therapy Proc, Neuromuscular Reeducation Of Movement Completed 04/03/2023 94893 Therapy Proc 1/> Area 15Min Ea Completed 04/01/2023 25596 Manual Well Site Drilling Engineer 1/> Area 15 Min Each Region Completed 04/01/2023 61707 Therapy Proc, Neuromuscular Reeducation Of Movement Completed 04/01/2023 16178 Therapy Proc 1/> Area 15Min Ea Completed 03/29/2023 31192 Therapy Proc 1/> Area 15Min Ea Completed 03/29/2023 66578 Therapy Proc, Neuromuscular Reeducation Of Movement Completed 03/29/2023 50296 Manual Well Site Drilling Engineer 1/> Area 15 Min Each Region Completed 03/27/2023 20889 Manual Well Site Drilling Engineer 1/> Area 15 Min Each Region Completed 03/27/2023 42879 Therapy Proc, Neuromuscular Reeducation Of Movement Completed 03/27/2023 67482 Therapy Proc 1/> Area 15Min Ea Completed 03/25/2023 91916 Manual Well Site Drilling Engineer 1/> Area 15 Min Each Region Completed 03/25/2023 70468 Therapy Proc, Neuromuscular Reeducation Of Movement Completed 03/25/2023 57277 Therapy Proc 1/> Area 15Min Ea Completed 03/22/2023 53894 Manual Well Site Drilling Engineer 1/> Area 15 Min Each Region Completed 03/22/2023 36196 Therapy Proc 1/> Area 15Min Ea Completed 03/22/2023 66133 Therapy Proc, Neuromuscular Reeducation Of Movement Completed 03/20/2023 96106 Manual Well Site Drilling Engineer 1/> Area 15 Min Each Region Completed 03/20/2023 96393 Therapy Proc, Neuromuscular Reeducation Of Movement Completed 03/20/2023 46940 Therapy Proc 1/> Area 15Min Ea Completed 03/18/2023 44646 Manual Well Site Drilling Engineer 1/> Area 15 Min Each Region Completed 03/18/2023 71395 Therapy Proc, Neuromuscular Reeducation Of Movement Completed 03/18/2023 84358 Therapy Proc 1/> Area 15Min Ea Completed 03/15/2023 76691 Manual Well Site Drilling Engineer 1/> Area 15 Min Each Region Completed 03/15/2023 07289 Therapy Proc, Neuromuscular Reeducation Of Movement Completed 03/15/2023 02519 Therapy Proc 1/> Area 15Min Ea Completed 03/13/2023 53296 Physical Therapy Evaluation Moderate Complexity Completed 03/13/2023 35749 Manual Well Site Drilling Engineer 1/> Area 15 Min Each Region Completed 03/13/2023 27221 Therapy Proc 1/> Area 15Min Ea Completed 02/18/2023 00824 Venipuncture Routine Complet ed Medical Devices Description No Information Available Encounters Type Date Location Provider Dx Diagnosis Office Visit 02/22/2023 10:30a Jonatan Almodovar DO I10 Essential (pr imary) hypertension 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 F41.1 Generalized anxiety disorder M15.0 Primary generalized (osteo)arthritis Assessments Date Code Description Provider 06/05/2023 R26.2 Difficulty in wa [place]king, not elsewhere classified Aki Garcia DPT 06/05/2023 M25.511 Pain in right shoulder Oziel Garcia DPT 06/03/2023 R26.2 Difficulty in wa lking, [...] lking, not elsewhere classified Aki Garcai, DPT 03/15/2023 M25.511 Pain in right shoulder [...] I10 Essential (primary) hyperten vick[facility] [place] 02/18/2023 E55.9 Vitamin D deficiency, unspec ified Dawson Almodovar, DO 02/18/2023 E55.9 Vitamin D deficiency, unspec ified [facility] - [place] 02/18/2023 E53.8 Deficiency of ot her specified B group vitamins Dawson Almodovar, DO 02/18/2023 E53.8 Deficiency of ot her specified B group vitamins [facility] - [place] Plan of Treatment Future Appointment(s):* 09/06/2023 10:30 am - Dawson Almodovar DO at [place] * 08/28/2023 10:30 am - [facility] [place] Functional Status Description No Information Available Mental Status Description No Information Available Referrals Description No Information Available"
--- OUTSIDE RECORDS SUMMARY | 2023-10-11 13:20 | External Medical Summary | Continuity of Care Document ---
Author Name AKI GARCIA DPT Address [address] [address] Phone [phone] Organization Health system, Address [address] [place] [address] Phone [phone] Problems Active Problems Provider Date Essential hypertension [...] SIG Qnty Indications Order ing Provider Date Wgrecdpmmw73gq Tablets 2 tablets by mouth every day 30tabs R60.0 Fior Rodriguez MD, PhD 10/05/2022 Multi + [place]-3 Adult GummiesChewtabs 1 by mouth every day Dawson Almodovar DO 08/08/2022 Vitamin B ComplexTablets 1 by mouth every day Dawson Almodovar DO 08/08/2022 Losartan Potassium/Hydrochlorothi -05ey Tablets 1 by mouth every day 90tabs I10 Dawson Almodovar, DO 03/21/2020 Juice Plus Fibre` Dawson Almodovar, DO 02/19/2018 Aspirin Adult Low Aroy02yz Tablets DR 1 by mouth every day Unknown Citalopram Pshhhxtnzkeq88gi Tablets 1 by mouth every day 90tabs F41.1 Dawson Almodovar, DO Vitamin D3 Maximum Osgnbrhv140knq (5000 Ut) Capsules 1 by mouth once daily Unknown Immunizations CPT Code Status Date Vaccine Lot # [id number] Given 07/14/2009 Pneumococcal Vaccine/Pneu movax 23 04506 Refused 10/19/2022 Shingrix [id number] Refused 08/08/2022 Pneumococcal Conjugate-Pr evnar 20 30546 Refused 08/08/2022 Influenza Vac, Split, Preservative Free High Dose Age 65 & > [address] Refused 04/20/2022 Moderna Sars-Co v-2 (Cov-19) vacc,100 mcg/ 0.5 mL 12Y+EMR Doc Only 43432 Refused 10/16/2021 Influenza Virus Vaccine, Quadrivalent (Cciiv4), Derived From Cell 09243 Refused 10/16/2021 Shingrix 40825 Refused 10/16/2021 Pneumococcal Conjugate-Pr evnar 13 15756 Refused 03/20/2021 Pfizer Sars-Cov -2 (Cov-19) vacc 30mcg/0.3ML 12Y+ EMR Doc Only 47593 Refused 04/17/2019 Influenza Vacci ne, Inactivated, Subunit, Adjuvanted, For Intrmusc 14961 Refused 01/29/2019 Tdap (Tetanus, diphtheria & acel. pertussis) Adacel or Boostrix 99090 Refused 01/29/2019 Pneumococcal Conjugate-Pr evnar 13 Vital [...] H/L Range N ote CBC W/Diff 02/18/2023 [facility] [address] [place] [address] [phone] WBC 7.6 10^3/M3 3.1-9.2 RBC 4.19 10^6/M3 3.70-5.50 HGB 12.2 GR/DL 11.5-16.1 HCT 36.6 % 34.5-47.8 MCV 87.5 CUMICR 82.6-95.8 MCH 29.1 PICOGR 27.9-32.9 MCHC 33.3 % 32.6-35.4 RDW 14.9 % High 11.4-14.6 PLT 225 10^3/M3 140-350 MPV 8.8 CUMICR 7.0-10.6 %Neut 57.1 % 40.0-75.0 %Lymph 29.4 % 17.0-45.0 %[place] 8.6 % 1.0-11.0 %Eos 3.8 % 0.0-6.0 %Baso 1.1 % 0.0-2.0 #Neut 4.4 10^3/M3 1.5-8.0 #Lymph 2.2 10^3/M3 0.8-3.2 #[place] 0.7 10^3/M3 0.0-0.8 #Eos 0.3 10^3/m3 0.0-0.4 #Baso 0.1 10^3/m3 0.0-0.2 Comp. Met 02/18/2023 [facility] [address] [place] [address] [phone] Glucose 96 mg/dL 70-110 BUN 18 mg/dL [...] 2.0-3.4 GFR 72 ML/MIN/1.73SQM >60 Lipid 02/18/2023 [facility] [address] [place] [address] [phone] Cholesterol 164 mg/dL 0-200 1 Triglyceride 79 mg/dL 0-150 2 HDLD 62 mg/dL See Comment 3 Measured LDL 99 mg/dL 0-130 4 Calc VLDL 15.8 mg/dL See Comment 5 Chol/HDL 2.6 RATIO See Comment 6 Non-HDL 102 mg/dL See Comment 7 Laboratory test finding 02/18/2023 [facility] [address] [place] [address] [phone] Vitd-25Oh 77 ng/mL 30-100 VB12 411 pg/mL [...] LDL Target Procedures Date Code Description Status 06/12/2023 32587 Manual Magnaflux Operator 1/> Area 15 Min Each Region Completed 06/12/2023 52983 Therapy Proc, Neuromuscular Reeducation Of Movement Completed 06/12/2023 25070 Therapy Proc 1/> Area 15Min Ea Completed 06/12/2023 12664 Hot/Cold Pack Completed 06/12/2023 45419 Therapeutic Activities Direc t, Each 15 Minutes Completed 06/07/2023 27104 Therapeutic Activities Direc t, Each 15 Minutes Completed 06/07/2023 91726 Manual Magnaflux Operator 1/> Area 15 Min Each Region Completed 06/07/2023 14651 Therapy Proc, Neuromuscular Reeducation Of Movement Completed 06/07/2023 97180 Therapy Proc 1/> Area 15Min Ea Completed 06/05/2023 49631 Manual Magnaflux Operator 1/> Area 15 Min Each Region Completed 06/05/2023 66386 Hot/Cold Pack Completed 06/05/2023 97387 Therapy Proc 1/> Area 15Min Ea Completed 06/05/2023 54711 Therapy Proc, Neuromuscular Reeducation Of Movement Completed 06/05/2023 40895 Therapeutic Activities Direc t, Each 15 Minutes Completed 06/03/2023 82565 Therapeutic Activities Direc t, Each 15 Minutes Completed 06/03/2023 37555 Manual Magnaflux Operator 1/> Area 15 Min Each Region Completed 06/03/2023 43813 Therapy Proc, Neuromuscular Reeducation Of Movement Completed 06/03/2023 91472 Therapy Proc 1/> Area 15Min Ea Completed 06/03/2023 31444 Hot/Cold Pack Completed 05/31/2023 71029 Manual Magnaflux Operator 1/> Area 15 Min Each Region Completed 05/31/2023 60607 Hot/Cold Pack Completed 05/31/2023 39694 Therapy Proc, Neuromuscular Reeducation Of Movement Completed 05/31/2023 29458 Therapeutic Activities Direc t, Each 15 Minutes Completed 05/29/2023 33609 Therapeutic Activities Direc t, Each 15 Minutes Completed 05/29/2023 76985 Therapeutic Procedure Group Completed 05/29/2023 72395 Manual Magnaflux Operator 1/> Area 15 Min Each Region Completed 05/29/2023 95443 Therapy Proc, Neuromuscular Reeducation Of Movement Completed 05/29/2023 02328 Hot/Cold Pack Completed 05/27/2023 28854 Therapeutic Activities Direc t, Each 15 Minutes Completed 05/27/2023 06225 Therapeutic Procedure Group Completed 05/27/2023 06567 Manual Magnaflux Operator 1/> Area 15 Min Each Region Completed 05/27/2023 16481 Therapy Proc, Neuromuscular Reeducation Of Movement Completed 05/27/2023 65449 Hot/Cold Pack Completed 05/24/2023 62092 Therapeutic Activities Direc t, Each 15 Minutes Completed 05/24/2023 70940 Manual Magnaflux Operator 1/> Area 15 Min Each Region Completed 05/24/2023 24423 Therapy Proc, Neuromuscular Reeducation Of Movement Completed 05/24/2023 50585 Therapy Proc 1/> Area 15Min Ea Completed 05/24/2023 62348 Hot/Cold Pack Completed 05/22/2023 66742 Therapy Proc 1/> Area 15Min Ea Completed 05/22/2023 28934 Hot/Cold Pack Completed 05/22/2023 17558 Therapeutic Activities Direc t, Each 15 Minutes Completed 05/22/2023 37968 Manual Magnaflux Operator 1/> Area 15 Min Each Region Completed 05/22/2023 42423 Therapy Proc, Neuromuscular Reeducation Of Movement Completed 05/20/2023 02392 Therapeutic Activities Direc t, Each 15 Minutes Completed 05/20/2023 34330 Manual Magnaflux Operator 1/> Area 15 Min Each Region Completed 05/20/2023 28059 Therapy Proc, Neuromuscular Reeducation Of Movement Completed 05/20/2023 71523 Therapy Proc 1/> Area 15Min Ea Completed 05/20/2023 71809 Hot/Cold Pack Completed 05/17/2023 48364 Therapy Proc 1/> Area 15Min Ea Completed 05/17/2023 17796 Hot/Cold Pack Completed 05/17/2023 08164 Therapy Proc, Neuromuscular Reeducation Of Movement Completed 05/17/2023 50988 Manual Magnaflux Operator 1/> Area 15 Min Each Region Completed 05/17/2023 48040 Therapeutic Activities Direc t, Each 15 Minutes Completed 05/15/2023 71403 Therapeutic Activities Direc t, Each 15 Minutes Completed 05/15/2023 68592 Manual Magnaflux Operator 1/> Area 15 Min Each Region Completed 05/15/2023 51851 Therapy Proc, Neuromuscular Reeducation Of Movement Completed 05/15/2023 40545 Therapy Proc 1/> Area 15Min Ea Completed 05/15/2023 43467 Hot/Cold Pack Completed 2023 85045 Therapeutic Activities Direc t, Each 15 Minutes Completed 2023 61284 Hot/Cold Pack Completed 2023 25592 Therapy Proc 1/> Area 15Min Ea Completed 2023 94037 Therapy Proc, Neuromuscular Reeducation Of Movement Completed 2023 67761 Manual Magnaflux Operator 1/> Area 15 Min Each Region Completed 05/10/2023 90689 Therapeutic Activities Direc t, Each 15 Minutes Completed 05/10/2023 48301 Manual Magnaflux Operator 1/> Area 15 Min Each Region Completed 05/10/2023 13917 Therapy Proc, Neuromuscular Reeducation Of Movement Completed 05/10/2023 46556 Therapy Proc 1/> Area 15Min Ea Completed 05/10/2023 32281 Hot/Cold Pack Completed 05/08/2023 17493 Therapeutic Activities Direc t, Each 15 Minutes Completed 05/08/2023 35165 Manual Magnaflux Operator 1/> Area 15 Min Each Region Completed 05/08/2023 78226 Therapy Proc, Neuromuscular Reeducation Of Movement Completed 05/08/2023 16069 Therapy Proc 1/> Area 15Min Ea Completed 05/08/2023 42821 Hot/Cold Pack Completed 05/06/2023 69222 Hot/Cold Pack Completed 05/06/2023 80192 Manual Magnaflux Operator 1/> Area 15 Min Each Region Completed 05/06/2023 45840 Therapy Proc 1/> Area 15Min Ea Completed 05/06/2023 97762 Therapeutic Activities Direc t, Each 15 Minutes Completed 05/06/2023 50364 Therapy Proc, Neuromuscular Reeducation Of Movement Completed 05/02/2023 40917 Manual Magnaflux Operator 1/> Area 15 Min Each Region Completed 05/02/2023 75950 Therapeutic Activities Direc t, Each 15 Minutes Completed 05/02/2023 27919 Therapy Proc 1/> Area 15Min Ea Completed 05/02/2023 54047 Therapy Proc, Neuromuscular Reeducation Of Movement Completed 04/30/2023 28995 Manual Magnaflux Operator 1/> Area 15 Min Each Region Completed 04/30/2023 91726 Therapy Proc, Neuromuscular Reeducation Of Movement Completed 04/30/2023 29720 Therapy Proc 1/> Area 15Min Ea Completed 04/30/2023 31690 Hot/Cold Pack Completed 04/24/2023 01315 Manual Magnaflux Operator 1/> Area 15 Min Each Region Completed 04/24/2023 03008 Therapy Proc, Neuromuscular Reeducation Of Movement Completed 04/24/2023 00005 Therapy Proc 1/> Area 15Min Ea Completed 04/22/2023 82850 Manual Magnaflux Operator 1/> Area 15 Min Each Region Completed 04/22/2023 60635 Therapy Proc, Neuromuscular Reeducation Of Movement Completed 04/22/2023 23996 Therapy Proc 1/> Area 15Min Ea Completed 04/22/2023 68582 Hot/Cold Pack Completed 04/19/2023 53496 Hot/Cold Pack Completed 04/19/2023 47976 Therapy Proc 1/> Area 15Min Ea Completed 04/19/2023 95172 Manual Magnaflux Operator 1/> Area 15 Min Each Region Completed 04/19/2023 93176 Therapy Proc, Neuromuscular Reeducation Of Movement Completed 04/18/2023 20453 Manual Magnaflux Operator 1/> Area 15 Min Each Region Completed 04/18/2023 22172 Therapy Proc, Neuromuscular Reeducation Of Movement Completed 04/18/2023 88372 Therapy Proc 1/> Area 15Min Ea Completed 04/15/2023 41387 Manual Magnaflux Operator 1/> Area 15 Min Each Region Completed 04/15/2023 71921 Therapy Proc, Neuromuscular Reeducation Of Movement Completed 04/15/2023 31560 Therapy Proc 1/> Area 15Min Ea Completed 04/15/2023 43678 Hot/Cold Pack Completed 04/12/2023 97576 Manual Magnaflux Operator 1/> Area 15 Min Each Region Completed 04/12/2023 29999 Hot/Cold Pack Completed 04/12/2023 27942 Therapy Proc 1/> Area 15Min Ea Completed 04/12/2023 01368 Therapy Proc, Neuromuscular Reeducation Of Movement Completed 04/10/2023 78336 Manual Magnaflux Operator 1/> Area 15 Min Each Region Completed 04/10/2023 18939 Therapy Proc, Neuromuscular Reeducation Of Movement Completed 04/10/2023 51899 Therapy Proc 1/> Area 15Min Ea Completed 04/08/2023 02263 Therapy Proc 1/> Area 15Min Ea Completed 04/08/2023 97690 Therapy Proc, Neuromuscular Reeducation Of Movement Completed 04/08/2023 18936 Manual Magnaflux Operator 1/> Area 15 Min Each Region Completed 04/05/2023 84083 Manual Magnaflux Operator 1/> Area 15 Min Each Region Completed 04/05/2023 03710 Therapy Proc 1/> Area 15Min Ea Completed 04/05/2023 85041 Therapy Proc, Neuromuscular Reeducation Of Movement Completed 04/03/2023 76395 Manual Magnaflux Operator 1/> Area 15 Min Each Region Completed 04/03/2023 36611 Therapy Proc, Neuromuscular Reeducation Of Movement Completed 04/03/2023 68650 Therapy Proc 1/> Area 15Min Ea Completed 04/01/2023 82338 Manual Magnaflux Operator 1/> Area 15 Min Each Region Completed 04/01/2023 70340 Therapy Proc, Neuromuscular Reeducation Of Movement Completed 04/01/2023 93365 Therapy Proc 1/> Area 15Min Ea Completed 03/29/2023 27322 Manual Magnaflux Operator 1/> Area 15 Min Each Region Completed 03/29/2023 21774 Therapy Proc, Neuromuscular Reeducation Of Movement Completed 03/29/2023 66955 Therapy Proc 1/> Area 15Min Ea Completed 03/27/2023 74882 Manual Magnaflux Operator 1/> Area 15 Min Each Region Completed 03/27/2023 97524 Therapy Proc, Neuromuscular Reeducation Of Movement Completed 03/27/2023 56583 Therapy Proc 1/> Area 15Min Ea Completed 03/25/2023 01438 Therapy Proc 1/> Area 15Min Ea Completed 03/25/2023 25228 Therapy Proc, Neuromuscular Reeducation Of Movement Completed 03/25/2023 43283 Manual Magnaflux Operator 1/> Area 15 Min Each Region Completed 03/22/2023 95569 Manual Magnaflux Operator 1/> Area 15 Min Each Region Completed 03/22/2023 19087 Therapy Proc, Neuromuscular Reeducation Of Movement Completed 03/22/2023 77859 Therapy Proc 1/> Area 15Min Ea Completed 03/20/2023 60300 Manual Magnaflux Operator 1/> Area 15 Min Each Region Completed 03/20/2023 05040 Therapy Proc, Neuromuscular Reeducation Of Movement Completed 03/20/2023 99304 Therapy Proc 1/> Area 15Min Ea Completed 03/18/2023 40851 Therapy Proc, Neuromuscular Reeducation Of Movement Completed 03/18/2023 61145 Therapy Proc 1/> Area 15Min Ea Completed 03/18/2023 13079 Manual Magnaflux Operator 1/> Area 15 Min Each Region Completed 03/15/2023 96255 Manual Magnaflux Operator 1/> Area 15 Min Each Region Completed 03/15/2023 31820 Therapy Proc, Neuromuscular Reeducation Of Movement Completed 03/15/2023 59577 Therapy Proc 1/> Area 15Min Ea Completed 03/13/2023 55133 Physical Therapy Evaluation Moderate Complexity Completed 03/13/2023 48792 Manual Magnaflux Operator 1/> Area 15 Min Each Region Completed 03/13/2023 52799 Therapy Proc 1/> Area 15Min Ea Completed 02/18/2023 79326 Venipuncture Routine Complet ed Medical Devices Description No Information Available Encounters Type Date Location Provider Dx Diagnosis Office Visit 02/22/2023 10:30a Jonatan Almodovar, I10 Essential (pr imary) hypertension 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 F41.1 Generalized anxiety disorder M15.0 Primary generalized (osteo)arthritis Assessments Date Code Description Provider 06/12/2023 R26.2 Difficulty in wa lking, not elsewhere classified Aki Garcia, DPT 06/12/2023 M25.511 Pain in right shoulder Oziel Garcia, DPT 06/07/2023 R26.2 Difficulty in wa lking, not elsewhere classified Aki Garcia, DPT 06/07/2023 M25.511 Pain in right shoulder Oziel jeremy Garcia, DPT 06/05/2023 R26.2 Difficulty in wa lking, not elsewhere classified Aki Garcia, DPT 06/05/2023 M25.511 Pain in right shoulder Oziel jeremy Garcia, DPT 06/03/2023 R26.2 Difficulty in wa lking, not elsewhere classified Aki Garcia, DPT 06/03/2023 M25.511 Pain in right shoulder Oziel jeremy Garcia, DPT 05/31/2023 R26.2 Difficulty in wa lking, not elsewhere classified Aki Garcia, DPT 05/31/2023 M25.511 Pain in right shoulder Oziel Garcia, DPT 05/29/2023 R26.2 Difficulty in wa lking, not elsewhere classified Aki Garcia DPT 05/29/2023 M25.511 Pain in right shoulder Oziel jeremy Garcia, DPT 05/27/2023 R26.2 Difficulty in wa lking, not elsewhere classified Aki Garcia, DPT 05/27/2023 M25.511 Pain in right shoulder Oziel jeremy Garcia, DPT 05/24/2023 R26.2 Difficulty in wa lking, not elsewhere classified Aki Garcia, DPT 05/24/2023 M25.511 Pain in right shoulder Oziel jeremy Garcia, DPT 05/22/2023 R26.2 Difficulty in wa lking, not elsewhere classified Aki Garcia DPT 05/22/2023 M25.511 Pain in right shoulder Oziel jeremy Garcia, DPT 05/20/2023 R26.2 Difficulty in wa [...] lking, not elsewhere classified kAi Garcia, DPT 03/25/2023 M25.511 Pain in right shoulder Ozeil Garcia, DPT 03/22/2023 R26.2 Difficulty in wa [...] I10 Essential (primary) hyperten vickie [facility] 02/18/2023 E55.9 Vitamin D deficiency, unspec ified Dawson Almodovar, DO 02/18/2023 E55.9 Vitamin D deficiency, unspec ified [facility] 02/18/2023 E53.8 Deficiency of ot her specified B group vitamins Dawson Almodovar DO 02/18/2023 E53.8 Deficiency of ot her specified B group vitamins [facility] Plan of Treatment Future Appointment(s):* 09/06/2023 10:30 am - Dawson Almodovar DO at [facility] * 08/28/2023 10:30 am - [facility] Functional Status Description No Information Available Mental Status Description No Information Available Referrals Description No Information Available"
--- OUTSIDE RECORDS SUMMARY | 2023-10-11 13:20 | External Medical Summary | Continuity of Care Document ---
Author Name AKI GARCIA DPT Address [address] [address] Phone [phone] Organization [facility], Address [address] [place] [address] Phone [phone] Problems Active Problems Provider Date Essential hypertension [...] SIG Qnty Indications Order ing Provider Date [id number] Tablets 2 tablets by mouth every day 30tabs R60.0 Fior Rodriguez MD, PhD 10/05/2022 Multi + [place]-3 Adult GummiesChewtabs 1 by mouth every day Dawson Almodovar DO 08/08/2022 Vitamin B ComplexTablets 1 by mouth every day Dawson Almodovar DO 08/08/2022 Losartan Potassium/Hydrochlorothi [id number] Tablets 1 by mouth every day 90tabs I10 Dawson Almodovar, DO 03/21/2020 Juice Plus Fibre` Dawson Almodovar, DO 02/19/2018 Aspirin Adult Low Gzlc98ae Tablets DR 1 by mouth every day Unknown Citalopram [id number] Tablets 1 by mouth every day 90tabs F41.1 Dawson Almodovar, DO Vitamin D3 Maximum [id number] (5000 Ut) Capsules 1 by mouth once daily Unknown Immunizations CPT Code Status Date Vaccine Lot # [id number] Given 07/14/2009 Pneumococcal Vaccine/Pneu movax 23 54616 Refused 10/19/2022 Shingrix 16559 Refused 08/08/2022 Pneumococcal Conjugate-Pr evnar 20 78696 Refused 08/08/2022 Influenza Vac, Split, Preservative Free High Dose Age 65 & > 448[address] Refused 04/20/2022 Moderna Sars-Co v-2 (Cov-19) vacc,100 mcg/ 0.5 mL 12Y+EMR Doc Only 54538 Refused 10/16/2021 Influenza Virus Vaccine, Quadrivalent (Cciiv4), Derived From Cell 54171 Refused 10/16/2021 Shingrix 14617 Refused 10/16/2021 Pneumococcal Conjugate-Pr evnar 13 71046 Refused 03/20/2021 Pfizer Sars-Cov -2 (Cov-19) vacc 30mcg/0.3ML 12Y+ EMR Doc Only 44118 Refused 04/17/2019 Influenza Vacci ne, Inactivated, Subunit, Adjuvanted, For Intrmusc 37978 Refused 01/29/2019 Tdap (Tetanus, diphtheria & acel. pertussis) Adacel or Boostrix 29693 Refused 01/29/2019 Pneumococcal Conjugate-Pr evnar 13 Vital [...] H/L Range N ote CBC W/Diff 02/18/2023 [facility] [address] [place] [address] [phone] WBC 7.6 10^3/M3 3.1-9.2 RBC 4.19 10^6/M3 3.70-5.50 HGB 12.2 GR/DL 11.5-16.1 HCT 36.6 % 34.5-47.8 MCV 87.5 CUMICR 82.6-95.8 MCH 29.1 PICOGR 27.9-32.9 MCHC 33.3 % 32.6-35.4 RDW 14.9 % High 11.4-14.6 PLT 225 10^3/M3 140-350 MPV 8.8 CUMICR 7.0-10.6 %Neut 57.1 % 40.0-75.0 %Lymph 29.4 % 17.0-45.0 %Hoke 8.6 % 1.0-11.0 %Eos 3.8 % 0.0-6.0 %Baso 1.1 % 0.0-2.0 #Neut 4.4 10^3/M3 1.5-8.0 #Lymph 2.2 10^3/M3 0.8-3.2 #Hoke 0.7 10^3/M3 0.0-0.8 #Eos 0.3 10^3/m3 0.0-0.4 #Baso 0.1 10^3/m3 0.0-0.2 Comp. Met 02/18/2023 [facility] [address] [place] [address] [phone] Glucose 96 mg/dL 70-110 BUN 18 mg/dL [...] 2.0-3.4 GFR 72 ML/MIN/1.73SQM >60 Lipid 02/18/2023 [facility] [address] [place] [address] [phone] Cholesterol 164 mg/dL 0-200 1 Triglyceride 79 mg/dL 0-150 2 HDLD 62 mg/dL See Comment 3 Measured LDL 99 mg/dL 0-130 4 Calc VLDL 15.8 mg/dL See Comment 5 Chol/HDL 2.6 RATIO See Comment 6 Non-HDL 102 mg/dL See Comment 7 Laboratory test finding 02/18/2023 [facility] [address] [place] [address] [phone] Vitd-25Oh 77 ng/mL 30-100 VB12 411 pg/mL [...] LDL Target Procedures Date Code Description Status 05/31/2023 98252 Manual Economics Teacher 1/> Area 15 Min Each Region Completed 05/31/2023 16787 Therapeutic Activities Direc t, Each 15 Minutes Completed 05/31/2023 30482 Hot/Cold Pack Completed 05/31/2023 44303 Therapy Proc, Neuromuscular Reeducation Of Movement Completed 05/29/2023 12069 Therapeutic Activities Direc t, Each 15 Minutes Completed 05/29/2023 79923 Therapeutic Procedure Group Completed 05/29/2023 78680 Manual Economics Teacher 1/> Area 15 Min Each Region Completed 05/29/2023 61746 Therapy Proc, Neuromuscular Reeducation Of Movement Completed 05/29/2023 76243 Hot/Cold Pack Completed 05/27/2023 87518 Therapy Proc, Neuromuscular Reeducation Of Movement Completed 05/27/2023 42832 Hot/Cold Pack Completed 05/27/2023 81216 Manual Economics Teacher 1/> Area 15 Min Each Region Completed 05/27/2023 63527 Therapeutic Procedure Group Completed 05/27/2023 59148 Therapeutic Activities Direc t, Each 15 Minutes Completed 05/24/2023 47751 Therapeutic Activities Direc t, Each 15 Minutes Completed 05/24/2023 30977 Manual Economics Teacher 1/> Area 15 Min Each Region Completed 05/24/2023 03956 Therapy Proc, Neuromuscular Reeducation Of Movement Completed 05/24/2023 20330 Therapy Proc 1/> Area 15Min Ea Completed 05/24/2023 62818 Hot/Cold Pack Completed 05/22/2023 20100 Manual Economics Teacher 1/> Area 15 Min Each Region Completed 05/22/2023 46890 Hot/Cold Pack Completed 05/22/2023 32062 Therapy Proc 1/> Area 15Min Ea Completed 05/22/2023 42823 Therapy Proc, Neuromuscular Reeducation Of Movement Completed 05/22/2023 36542 Therapeutic Activities Direc t, Each 15 Minutes Completed 05/20/2023 23939 Therapeutic Activities Direc t, Each 15 Minutes Completed 05/20/2023 55848 Manual Economics Teacher 1/> Area 15 Min Each Region Completed 05/20/2023 54221 Therapy Proc, Neuromuscular Reeducation Of Movement Completed 05/20/2023 12426 Therapy Proc 1/> Area 15Min Ea Completed 05/20/2023 40751 Hot/Cold Pack Completed 05/17/2023 08819 Therapeutic Activities Direc t, Each 15 Minutes Completed 05/17/2023 97682 Manual Economics Teacher 1/> Area 15 Min Each Region Completed 05/17/2023 08961 Therapy Proc, Neuromuscular Reeducation Of Movement Completed 05/17/2023 78968 Therapy Proc 1/> Area 15Min Ea Completed 05/17/2023 57313 Hot/Cold Pack Completed 05/15/2023 31785 Therapeutic Activities Direc t, Each 15 Minutes Completed 05/15/2023 56379 Hot/Cold Pack Completed 05/15/2023 78095 Therapy Proc 1/> Area 15Min Ea Completed 05/15/2023 22621 Manual Economics Teacher 1/> Area 15 Min Each Region Completed 05/15/2023 46616 Therapy Proc, Neuromuscular Reeducation Of Movement Completed 2023 77404 Therapeutic Activities Direc t, Each 15 Minutes Completed 2023 86236 Manual Economics Teacher 1/> Area 15 Min Each Region Completed 2023 19928 Therapy Proc, Neuromuscular Reeducation Of Movement Completed 2023 08936 Therapy Proc 1/> Area 15Min Ea Completed 2023 51419 Hot/Cold Pack Completed 05/10/2023 19335 Therapeutic Activities Direc t, Each 15 Minutes Completed 05/10/2023 96196 Manual Economics Teacher 1/> Area 15 Min Each Region Completed 05/10/2023 85465 Therapy Proc, Neuromuscular Reeducation Of Movement Completed 05/10/2023 37624 Therapy Proc 1/> Area 15Min Ea Completed 05/10/2023 78082 Hot/Cold Pack Completed 05/08/2023 83309 Therapy Proc, Neuromuscular Reeducation Of Movement Completed 05/08/2023 89441 Hot/Cold Pack Completed 05/08/2023 20116 Therapy Proc 1/> Area 15Min Ea Completed 05/08/2023 21429 Manual Economics Teacher 1/> Area 15 Min Each Region Completed 05/08/2023 05623 Therapeutic Activities Direc t, Each 15 Minutes Completed 05/06/2023 34997 Therapeutic Activities Direc t, Each 15 Minutes Completed 05/06/2023 35789 Manual Economics Teacher 1/> Area 15 Min Each Region Completed 05/06/2023 89106 Therapy Proc, Neuromuscular Reeducation Of Movement Completed 05/06/2023 02475 Therapy Proc 1/> Area 15Min Ea Completed 05/06/2023 10767 Hot/Cold Pack Completed 05/02/2023 63811 Therapeutic Activities Direc t, Each 15 Minutes Completed 05/02/2023 21218 Manual Economics Teacher 1/> Area 15 Min Each Region Completed 05/02/2023 04027 Therapy Proc, Neuromuscular Reeducation Of Movement Completed 05/02/2023 60051 Therapy Proc 1/> Area 15Min Ea Completed 04/30/2023 66162 Hot/Cold Pack Completed 04/30/2023 91255 Therapy Proc, Neuromuscular Reeducation Of Movement Completed 04/30/2023 75820 Manual Economics Teacher 1/> Area 15 Min Each Region Completed 04/30/2023 80518 Therapy Proc 1/> Area 15Min Ea Completed 04/24/2023 63375 Therapy Proc, Neuromuscular Reeducation Of Movement Completed 04/24/2023 52926 Therapy Proc 1/> Area 15Min Ea Completed 04/24/2023 24146 Manual Economics Teacher 1/> Area 15 Min Each Region Completed 04/22/2023 98445 Manual Economics Teacher 1/> Area 15 Min Each Region Completed 04/22/2023 37425 Therapy Proc, Neuromuscular Reeducation Of Movement Completed 04/22/2023 16375 Therapy Proc 1/> Area 15Min Ea Completed 04/22/2023 91023 Hot/Cold Pack Completed 04/19/2023 50857 Manual Economics Teacher 1/> Area 15 Min Each Region Completed 04/19/2023 54244 Therapy Proc, Neuromuscular Reeducation Of Movement Completed 04/19/2023 98664 Therapy Proc 1/> Area 15Min Ea Completed 04/19/2023 25793 Hot/Cold Pack Completed 04/18/2023 50095 Manual Economics Teacher 1/> Area 15 Min Each Region Completed 04/18/2023 62702 Therapy Proc, Neuromuscular Reeducation Of Movement Completed 04/18/2023 55969 Therapy Proc 1/> Area 15Min Ea Completed 04/15/2023 76223 Manual Economics Teacher 1/> Area 15 Min Each Region Completed 04/15/2023 99526 Hot/Cold Pack Completed 04/15/2023 39999 Therapy Proc 1/> Area 15Min Ea Completed 04/15/2023 90307 Therapy Proc, Neuromuscular Reeducation Of Movement Completed 04/12/2023 26282 Manual Economics Teacher 1/> Area 15 Min Each Region Completed 04/12/2023 35978 Therapy Proc, Neuromuscular Reeducation Of Movement Completed 04/12/2023 00541 Therapy Proc 1/> Area 15Min Ea Completed 04/12/2023 70203 Hot/Cold Pack Completed 04/10/2023 18550 Manual Economics Teacher 1/> Area 15 Min Each Region Completed 04/10/2023 91284 Therapy Proc, Neuromuscular Reeducation Of Movement Completed 04/10/2023 27749 Therapy Proc 1/> Area 15Min Ea Completed 04/08/2023 40798 Manual Economics Teacher 1/> Area 15 Min Each Region Completed 04/08/2023 52063 Therapy Proc, Neuromuscular Reeducation Of Movement Completed 04/08/2023 13284 Therapy Proc 1/> Area 15Min Ea Completed 04/05/2023 91103 Therapy Proc 1/> Area 15Min Ea Completed 04/05/2023 19943 Manual Economics Teacher 1/> Area 15 Min Each Region Completed 04/05/2023 06822 Therapy Proc, Neuromuscular Reeducation Of Movement Completed 04/03/2023 18148 Manual Economics Teacher 1/> Area 15 Min Each Region Completed 04/03/2023 30070 Therapy Proc, Neuromuscular Reeducation Of Movement Completed 04/03/2023 18444 Therapy Proc 1/> Area 15Min Ea Completed 04/01/2023 23082 Manual Economics Teacher 1/> Area 15 Min Each Region Completed 04/01/2023 24355 Therapy Proc, Neuromuscular Reeducation Of Movement Completed 04/01/2023 53222 Therapy Proc 1/> Area 15Min Ea Completed 03/29/2023 18876 Manual Economics Teacher 1/> Area 15 Min Each Region Completed 03/29/2023 83976 Therapy Proc, Neuromuscular Reeducation Of Movement Completed 03/29/2023 68554 Therapy Proc 1/> Area 15Min Ea Completed 03/27/2023 29658 Manual Economics Teacher 1/> Area 15 Min Each Region Completed 03/27/2023 78308 Therapy Proc, Neuromuscular Reeducation Of Movement Completed 03/27/2023 49833 Therapy Proc 1/> Area 15Min Ea Completed 03/25/2023 80403 Therapy Proc 1/> Area 15Min Ea Completed 03/25/2023 23236 Manual Economics Teacher 1/> Area 15 Min Each Region Completed 03/25/2023 41850 Therapy Proc, Neuromuscular Reeducation Of Movement Completed 03/22/2023 82566 Manual Economics Teacher 1/> Area 15 Min Each Region Completed 03/22/2023 92537 Therapy Proc, Neuromuscular Reeducation Of Movement Completed 03/22/2023 16949 Therapy Proc 1/> Area 15Min Ea Completed 03/20/2023 92370 Manual Economics Teacher 1/> Area 15 Min Each Region Completed 03/20/2023 55475 Therapy Proc, Neuromuscular Reeducation Of Movement Completed 03/20/2023 10903 Therapy Proc 1/> Area 15Min Ea Completed 03/18/2023 47084 Therapy Proc, Neuromuscular Reeducation Of Movement Completed 03/18/2023 81938 Therapy Proc 1/> Area 15Min Ea Completed 03/18/2023 78634 Manual Economics Teacher 1/> Area 15 Min Each Region Completed 03/15/2023 08323 Manual Economics Teacher 1/> Area 15 Min Each Region Completed 03/15/2023 21622 Therapy Proc, Neuromuscular Reeducation Of Movement Completed 03/15/2023 02572 Therapy Proc 1/> Area 15Min Ea Completed 03/13/2023 25558 Physical Therapy Evaluation Moderate Complexity Completed 03/13/2023 48401 Manual Economics Teacher 1/> Area 15 Min Each Region Completed 03/13/2023 10561 Therapy Proc 1/> Area 15Min Ea Completed 02/18/2023 93206 Venipuncture Routine Complet ed Medical Devices Description No Information Available Encounters Type Date Location Provider Dx Diagnosis Office Visit 02/22/2023 10:30a Jonatan Almodovar, DO I10 Essential (pr imary) hypertension 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 F41.1 Generalized anxiety disorder M15.0 Primary generalized (osteo)arthritis Assessments Date Code Description Provider 05/31/2023 R26.2 Difficulty in wa lking, not elsewhere classified Aki Garcia, GABRIELLET 05/31/2023 M25.511 Pain in right shoulder Oziel Garcia, DPT 05/29/2023 R26.2 Difficulty in wa lking, not elsewhere classified Aki Garcia DPT 05/29/2023 M25.511 Pain in right shoulder Oziel Garcia, DPT 05/27/2023 R26.2 Difficulty in wa lking, not elsewhere classified GABRIELLE EspinozaT 05/27/2023 M25.511 Pain in right shoulder Oziel Garcia, DPT 05/24/2023 R26.2 Difficulty in wa lking, not elsewhere classified Aki Garcia DPT 05/24/2023 M25.511 Pain in right shoulder Oziel Garcia, DPT 05/22/2023 R26.2 Difficulty in wa [place]king, not elsewhere classified Aki Garcia DPT 05/22/2023 M25.511 Pain in right shoulder Oziel Garcia, DPT 05/20/2023 R26.2 Difficulty in wa lking, not elsewhere classified Aki Garcia DPT 05/20/2023 M25.511 Pain in right shoulder Oziel Garcai, DPT 05/17/2023 R26.2 Difficulty in wa lking, [...] lking, not elsewhere classified Aki Gracia, DPT 04/12/2023 M25.511 Pain in right shoulder [...] I10 Essential (primary) hyperten vickie [facility] [place] 02/18/2023 E55.9 Vitamin D deficiency, unspec ified Dawson Almodovar, DO 02/18/2023 E55.9 Vitamin D deficiency, unspec ified [facility] - [place] 02/18/2023 E53.8 Deficiency of ot her specified B group vitamins Dawson Almodovar, DO 02/18/2023 E53.8 Deficiency of ot her specified B group vitamins [facility] - [place] Plan of Treatment Future Appointment(s):* 09/06/2023 10:30 am - Dawson Almodovar DO at [place] * 08/28/2023 10:30 am - [facility] [place] [facility] [place] Functional Status Description No Information Available Mental Status Description No Information Available Referrals Description No Information Available"
--- OUTSIDE RECORDS SUMMARY | 2023-10-11 13:21 | External Medical Summary | Continuity of Care Document ---
Author Name AKI GARCIA DPT Address [address] [address] Phone [phone] Organization [facility], Address [address] [place] [address] Phone [phone] Problems Active Problems Provider Date Essential hypertension [...] SIG Qnty Indications Order ing Provider Date Kvxcyjnshq10qh Tablets 2 tablets by mouth every day 30tabs R60.0 Fior Rodriguez MD, PhD 10/05/2022 Multi + [place]-3 Adult GummiesChewtabs 1 by mouth every day Dawson Almodovar DO 08/08/2022 Vitamin B ComplexTablets 1 by mouth every day Dawson Almodovar DO 08/08/2022 Losartan Potassium/Hydrochlorothi nsisd996-94xs Tablets 1 by mouth every day 90tabs I10 Dawson Almodovar, DO 03/21/2020 Juice Plus Fibre` Dawson Almodovar, DO 02/19/2018 Aspirin Adult Low Iref47bi Tablets DR 1 by mouth every day Unknown Citalopram Xigimqefluzh99br Tablets 1 by mouth every day 90tabs F41.1 Dawson Almodovar, DO Vitamin D3 Maximum [id number] (5000 Ut) Capsules 1 by mouth once daily Unknown Immunizations CPT Code Status Date Vaccine Lot # [id number] Given 07/14/2009 Pneumococcal Vaccine/Pneu movax 23 29237 Refused 10/19/2022 Shingrix 06847 Refused 08/08/2022 Pneumococcal Conjugate-Pr evnar 20 94464 Refused 08/08/2022 Influenza Vac, Split, Preservative Free High Dose Age 65 & > [address] Refused 04/20/2022 Moderna Sars-Co v-2 (Cov-19) vacc,100 mcg/ 0.5 mL 12Y+EMR Doc Only 23883 Refused 10/16/2021 Influenza Virus Vaccine, Quadrivalent (Cciiv4), Derived From Cell 40820 Refused 10/16/2021 Shingrix 50664 Refused 10/16/2021 Pneumococcal Conjugate-Pr evnar 13 51676 Refused 03/20/2021 Pfizer Sars-Cov -2 (Cov-19) vacc 30mcg/0.3ML 12Y+ EMR Doc Only 47620 Refused 04/17/2019 Influenza Vacci ne, Inactivated, Subunit, Adjuvanted, For Intrmusc 04594 Refused 01/29/2019 Tdap (Tetanus, diphtheria & acel. pertussis) Adacel or Boostrix 68118 Refused 01/29/2019 Pneumococcal Conjugate-Pr evnar 13 Vital [...] H/L Range N ote CBC W/Diff 02/18/2023 [facility] [address] [place] [address] [phone] WBC 7.6 10^3/M3 3.1-9.2 RBC 4.19 10^6/M3 3.70-5.50 HGB 12.2 GR/DL 11.5-16.1 HCT 36.6 % 34.5-47.8 MCV 87.5 CUMICR 82.6-95.8 MCH 29.1 PICOGR 27.9-32.9 MCHC 33.3 % 32.6-35.4 RDW 14.9 % High 11.4-14.6 PLT 225 10^3/M3 140-350 MPV 8.8 CUMICR 7.0-10.6 %Neut 57.1 % 40.0-75.0 %Lymph 29.4 % 17.0-45.0 %[place] 8.6 % 1.0-11.0 %Eos 3.8 % 0.0-6.0 %Baso 1.1 % 0.0-2.0 #Neut 4.4 10^3/M3 1.5-8.0 #Lymph 2.2 10^3/M3 0.8-3.2 #[place] 0.7 10^3/M3 0.0-0.8 #Eos 0.3 10^3/m3 0.0-0.4 #Baso 0.1 10^3/m3 0.0-0.2 Comp. Met 02/18/2023 [facility] [address] [place] [address] [phone] Glucose 96 mg/dL 70-110 BUN 18 mg/dL [...] 2.0-3.4 GFR 72 ML/MIN/1.73SQM >60 Lipid 02/18/2023 [facility] [address] [place] [address] [phone] Cholesterol 164 mg/dL 0-200 1 Triglyceride 79 mg/dL 0-150 2 HDLD 62 mg/dL See Comment 3 Measured LDL 99 mg/dL 0-130 4 Calc VLDL 15.8 mg/dL See Comment 5 Chol/HDL 2.6 RATIO See Comment 6 Non-HDL 102 mg/dL See Comment 7 Laboratory test finding 02/18/2023 [facility] [address] [place] [address] [phone] Vitd-25Oh 77 ng/mL 30-100 VB12 411 pg/mL [...] LDL Target Procedures Date Code Description Status 05/29/2023 68245 Therapeutic Procedure Group Completed 05/29/2023 89143 Manual Sound Editor 1/ Area 15 Min Each Region Completed 05/29/2023 23499 Therapy Proc, Neuromuscular Reeducation Of Movement Completed 05/29/2023 48506 Hot/Cold Pack Completed 05/29/2023 93834 Therapeutic Activities Direc t, Each 15 Minutes Completed 05/27/2023 36082 Hot/Cold Pack Completed 05/27/2023 26492 Therapy Proc, Neuromuscular Reeducation Of Movement Completed 05/27/2023 23816 Manual Sound Editor 1/> Area 15 Min Each Region Completed 05/27/2023 05446 Therapeutic Procedure Group Completed 05/27/2023 26900 Therapeutic Activities Direc t, Each 15 Minutes Completed 05/24/2023 84537 Therapeutic Activities Direc t, Each 15 Minutes Completed 05/24/2023 54482 Manual Sound Editor 1/> Area 15 Min Each Region Completed 05/24/2023 38437 Therapy Proc, Neuromuscular Reeducation Of Movement Completed 05/24/2023 46088 Therapy Proc 1/> Area 15Min Ea Completed 05/24/2023 05654 Hot/Cold Pack Completed 05/22/2023 89487 Manual Sound Editor 1/> Area 15 Min Each Region Completed 05/22/2023 94435 Hot/Cold Pack Completed 05/22/2023 83060 Therapy Proc 1/> Area 15Min Ea Completed 05/22/2023 44608 Therapy Proc, Neuromuscular Reeducation Of Movement Completed 05/22/2023 80050 Therapeutic Activities Direc t, Each 15 Minutes Completed 05/20/2023 39134 Therapeutic Activities Direc t, Each 15 Minutes Completed 05/20/2023 63032 Manual Sound Editor 1/> Area 15 Min Each Region Completed 05/20/2023 75067 Therapy Proc, Neuromuscular Reeducation Of Movement Completed 05/20/2023 82546 Therapy Proc 1/> Area 15Min Ea Completed 05/20/2023 62320 Hot/Cold Pack Completed 05/17/2023 76426 Therapeutic Activities Direc t, Each 15 Minutes Completed 05/17/2023 11094 Manual Sound Editor 1/> Area 15 Min Each Region Completed 05/17/2023 72365 Therapy Proc, Neuromuscular Reeducation Of Movement Completed 05/17/2023 09896 Therapy Proc 1/> Area 15Min Ea Completed 05/17/2023 94937 Hot/Cold Pack Completed 05/15/2023 48592 Therapeutic Activities Direc t, Each 15 Minutes Completed 05/15/2023 90191 Hot/Cold Pack Completed 05/15/2023 75705 Therapy Proc 1/> Area 15Min Ea Completed 05/15/2023 75556 Manual Sound Editor 1/> Area 15 Min Each Region Completed 05/15/2023 70886 Therapy Proc, Neuromuscular Reeducation Of Movement Completed 2023 29147 Therapeutic Activities Direc t, Each 15 Minutes Completed 2023 52532 Manual Sound Editor 1/> Area 15 Min Each Region Completed 2023 82647 Therapy Proc, Neuromuscular Reeducation Of Movement Completed 2023 43271 Therapy Proc 1/> Area 15Min Ea Completed 2023 20474 Hot/Cold Pack Completed 05/10/2023 61951 Therapeutic Activities Direc t, Each 15 Minutes Completed 05/10/2023 22737 Manual Sound Editor 1/> Area 15 Min Each Region Completed 05/10/2023 77262 Therapy Proc, Neuromuscular Reeducation Of Movement Completed 05/10/2023 49153 Therapy Proc 1/> Area 15Min Ea Completed 05/10/2023 66720 Hot/Cold Pack Completed 05/08/2023 49912 Therapy Proc, Neuromuscular Reeducation Of Movement Completed 05/08/2023 15440 Hot/Cold Pack Completed 05/08/2023 35204 Therapy Proc 1/> Area 15Min Ea Completed 05/08/2023 43186 Manual Sound Editor 1/> Area 15 Min Each Region Completed 05/08/2023 21822 Therapeutic Activities Direc t, Each 15 Minutes Completed 05/06/2023 88411 Therapeutic Activities Direc t, Each 15 Minutes Completed 05/06/2023 88974 Manual Sound Editor 1/> Area 15 Min Each Region Completed 05/06/2023 41771 Therapy Proc, Neuromuscular Reeducation Of Movement Completed 05/06/2023 23024 Therapy Proc 1/> Area 15Min Ea Completed 05/06/2023 64788 Hot/Cold Pack Completed 05/02/2023 47227 Therapeutic Activities Direc t, Each 15 Minutes Completed 05/02/2023 05337 Manual Sound Editor 1/> Area 15 Min Each Region Completed 05/02/2023 97880 Therapy Proc, Neuromuscular Reeducation Of Movement Completed 05/02/2023 29825 Therapy Proc 1/> Area 15Min Ea Completed 04/30/2023 02998 Hot/Cold Pack Completed 04/30/2023 61859 Therapy Proc 1/> Area 15Min Ea Completed 04/30/2023 04908 Manual Sound Editor 1/> Area 15 Min Each Region Completed 04/30/2023 57509 Therapy Proc, Neuromuscular Reeducation Of Movement Completed 04/24/2023 70838 Therapy Proc, Neuromuscular Reeducation Of Movement Completed 04/24/2023 23757 Therapy Proc 1/> Area 15Min Ea Completed 04/24/2023 32066 Manual Sound Editor 1/> Area 15 Min Each Region Completed 04/22/2023 28945 Manual Sound Editor 1/> Area 15 Min Each Region Completed 04/22/2023 68658 Therapy Proc, Neuromuscular Reeducation Of Movement Completed 04/22/2023 78619 Therapy Proc 1/> Area 15Min Ea Completed 04/22/2023 29703 Hot/Cold Pack Completed 04/19/2023 81895 Manual Sound Editor 1/> Area 15 Min Each Region Completed 04/19/2023 02769 Therapy Proc, Neuromuscular Reeducation Of Movement Completed 04/19/2023 64017 Therapy Proc 1/> Area 15Min Ea Completed 04/19/2023 80704 Hot/Cold Pack Completed 04/18/2023 50301 Manual Sound Editor 1/> Area 15 Min Each Region Completed 04/18/2023 48659 Therapy Proc, Neuromuscular Reeducation Of Movement Completed 04/18/2023 94389 Therapy Proc 1/> Area 15Min Ea Completed 04/15/2023 83896 Manual Sound Editor 1/> Area 15 Min Each Region Completed 04/15/2023 54123 Hot/Cold Pack Completed 04/15/2023 27087 Therapy Proc 1/> Area 15Min Ea Completed 04/15/2023 47612 Therapy Proc, Neuromuscular Reeducation Of Movement Completed 04/12/2023 16791 Manual Sound Editor 1/> Area 15 Min Each Region Completed 04/12/2023 44049 Therapy Proc, Neuromuscular Reeducation Of Movement Completed 04/12/2023 24282 Therapy Proc 1/> Area 15Min Ea Completed 04/12/2023 08577 Hot/Cold Pack Completed 04/10/2023 30129 Manual Sound Editor 1/> Area 15 Min Each Region Completed 04/10/2023 04049 Therapy Proc, Neuromuscular Reeducation Of Movement Completed 04/10/2023 57742 Therapy Proc 1/> Area 15Min Ea Completed 04/08/2023 68526 Manual Sound Editor 1/> Area 15 Min Each Region Completed 04/08/2023 12601 Therapy Proc, Neuromuscular Reeducation Of Movement Completed 04/08/2023 79854 Therapy Proc 1/> Area 15Min Ea Completed 04/05/2023 60081 Therapy Proc 1/> Area 15Min Ea Completed 04/05/2023 98080 Manual Sound Editor 1/> Area 15 Min Each Region Completed 04/05/2023 93070 Therapy Proc, Neuromuscular Reeducation Of Movement Completed 04/03/2023 61382 Manual Sound Editor 1/> Area 15 Min Each Region Completed 04/03/2023 53736 Therapy Proc, Neuromuscular Reeducation Of Movement Completed 04/03/2023 08403 Therapy Proc 1/> Area 15Min Ea Completed 04/01/2023 26786 Manual Sound Editor 1/> Area 15 Min Each Region Completed 04/01/2023 40022 Therapy Proc, Neuromuscular Reeducation Of Movement Completed 04/01/2023 72485 Therapy Proc 1/> Area 15Min Ea Completed 03/29/2023 30899 Manual Sound Editor 1/> Area 15 Min Each Region Completed 03/29/2023 60361 Therapy Proc, Neuromuscular Reeducation Of Movement Completed 03/29/2023 07863 Therapy Proc 1/> Area 15Min Ea Completed 03/27/2023 10000 Manual Sound Editor 1/> Area 15 Min Each Region Completed 03/27/2023 10697 Therapy Proc, Neuromuscular Reeducation Of Movement Completed 03/27/2023 33696 Therapy Proc 1/> Area 15Min Ea Completed 03/25/2023 84762 Therapy Proc 1/> Area 15Min Ea Completed 03/25/2023 56906 Manual Sound Editor 1/> Area 15 Min Each Region Completed 03/25/2023 01479 Therapy Proc, Neuromuscular Reeducation Of Movement Completed 03/22/2023 20817 Manual Sound Editor 1/> Area 15 Min Each Region Completed 03/22/2023 73518 Therapy Proc, Neuromuscular Reeducation Of Movement Completed 03/22/2023 94223 Therapy Proc 1/> Area 15Min Ea Completed 03/20/2023 77864 Manual Sound Editor 1/> Area 15 Min Each Region Completed 03/20/2023 94903 Therapy Proc, Neuromuscular Reeducation Of Movement Completed 03/20/2023 25162 Therapy Proc 1/> Area 15Min Ea Completed 03/18/2023 13234 Therapy Proc, Neuromuscular Reeducation Of Movement Completed 03/18/2023 56656 Therapy Proc 1/> Area 15Min Ea Completed 03/18/2023 76898 Manual Sound Editor 1/> Area 15 Min Each Region Completed 03/15/2023 33351 Manual Sound Editor 1/> Area 15 Min Each Region Completed 03/15/2023 91048 Therapy Proc, Neuromuscular Reeducation Of Movement Completed 03/15/2023 25333 Therapy Proc 1/> Area 15Min Ea Completed 03/13/2023 22368 Physical Therapy Evaluation Moderate Complexity Completed 03/13/2023 00495 Manual Sound Editor 1/> Area 15 Min Each Region Completed 03/13/2023 57649 Therapy Proc 1/> Area 15Min Ea Completed 02/18/2023 40360 Venipuncture Routine Complet ed Medical Devices Description No Information Available Encounters Type Date Location Provider Dx Diagnosis Office Visit 02/22/2023 10:[facility]a [place] [facility], I10 Essential (pr imary) hypertension 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 F41.1 Generalized anxiety disorder M15.0 Primary generalized (osteo)arthritis Assessments Date Code Description Provider 05/29/2023 R26.2 Difficulty in wa lking, not elsewhere classified GABRIELLE EspinozaT 05/29/2023 M25.511 Pain in right shoulder Oziel Garcia, DPT 05/27/2023 R26.2 Difficulty in wa lking, not elsewhere classified kAi Garcia DPT 05/27/2023 M25.511 Pain in right [...] wa lking, not elsewhere classified GABRIELLE EspinozaT 05/20/2023 M25.511 Pain in right shoulder Oziel Garcia, DPT 05/17/2023 R26.2 Difficulty in wa lking, not elsewhere classified Aki Garcia DPT 05/17/2023 M25.511 Pain in right shoulder Oziel Garcia, DPT 05/15/2023 R26.2 Difficulty in wa lking, not elsewhere classified Aki Garcia DPT 05/15/2023 M25.511 Pain in right shoulder [...] lking, not elsewhere classified Nondenominational Smith, DPT 03/18/2023 M25.511 Pain in right shoulder Oziel Garcia, DPT 03/15/2023 R26.2 Difficulty in wa lking, not elsewhere classified Nondenominational Smith, DPT 03/15/2023 M25.511 Pain in right [...] I10 Essential (primary) hyperten vickie [facility] - [place] 02/18/2023 E55.9 Vitamin D deficiency, unspec ified Dawson Almodovar, DO 02/18/2023 E55.9 Vitamin D deficiency, unspec ified [facility] - [place] 02/18/2023 E53.8 Deficiency of ot her specified B group vitamins Dawson Almodovar, DO 02/18/2023 E53.8 Deficiency of ot her specified B group vitamins [facility] - [place] Plan of Treatment Future Appointment(s):* 09/06/2023 10:30 am - Dawson Almodovar DO at [place] * 08/28/2023 10:30 am - [facility] [place] [facility] [place] Functional Status Description No Information Available Mental Status Description No Information Available Referrals Description No Information Available"
--- OUTSIDE RECORDS SUMMARY | 2023-10-11 13:21 | External Medical Summary | Continuity of Care Document ---
Author Name AKI GARCIA DPT Address [address] [address] Phone [phone] Organization [facility], Address [address] [place] [address] Phone [phone] Problems Active Problems Provider Date Essential hypertension [...] SIG Qnty Indications Order ing Provider Date [id number] Tablets 2 tablets by mouth every day 30tabs R60.0 Fior Rodriguez MD, PhD 10/05/2022 Multi + [place]-3 Adult GummiesChewtabs 1 by mouth every day Dawson Almodovar DO 08/08/2022 Vitamin B ComplexTablets 1 by mouth every day Dawson Almodovar DO 08/08/2022 Losartan Potassium/Hydrochlorothi [id number] Tablets 1 by mouth every day 90tabs I10 Dawson Almodovar, DO 03/21/2020 Juice Plus Fibre` Dawson Almodovar, DO 02/19/2018 Aspirin Adult Low Rfyl98nt Tablets DR 1 by mouth every day Unknown Citalopram Syqqovzcccdo22jq Tablets 1 by mouth every day 90tabs F41.1 Dawson Almodovar, DO Vitamin D3 Maximum Qrzohnnh360rkg (5000 Ut) Capsules 1 by mouth once daily Unknown Immunizations CPT Code Status Date Vaccine Lot # [id number] Given 07/14/2009 Pneumococcal Vaccine/Pneu movax 23 81924 Refused 10/19/2022 Shingrix 79844 Refused 08/08/2022 Pneumococcal Conjugate-Pr evnar 20 76364 Refused 08/08/2022 Influenza Vac, Split, Preservative Free High Dose Age 65 & > 44215 Refused 04/20/2022 Moderna Sars-Co v-2 (Cov-19) vacc,100 mcg/ 0.5 mL 12Y+EMR Doc Only 61456 Refused 10/16/2021 Influenza Virus Vaccine, Quadrivalent (Cciiv4), Derived From Cell 51119 Refused 10/16/2021 Shingrix 87060 Refused 10/16/2021 Pneumococcal Conjugate-Pr evnar 13 83319 Refused 03/20/2021 Pfizer Sars-Cov -2 (Cov-19) vacc 30mcg/0.3ML 12Y+ EMR Doc Only 95433 Refused 04/17/2019 Influenza Vacci ne, Inactivated, Subunit, Adjuvanted, For Intrmusc 16861 Refused 01/29/2019 Tdap (Tetanus, diphtheria & acel. pertussis) Adacel or Boostrix 32430 Refused 01/29/2019 Pneumococcal Conjugate-Pr evnar 13 Vital [...] H/L Range N ote CBC W/Diff 02/18/2023 [facility] [address] [place] [address] [phone] WBC 7.6 10^3/M3 3.1-9.2 RBC 4.19 10^6/M3 3.70-5.50 HGB 12.2 GR/DL 11.5-16.1 HCT 36.6 % 34.5-47.8 MCV 87.5 CUMICR 82.6-95.8 MCH 29.1 PICOGR 27.9-32.9 MCHC 33.3 % 32.6-35.4 RDW 14.9 % High 11.4-14.6 PLT 225 10^3/M3 140-350 MPV 8.8 CUMICR 7.0-10.6 %Neut 57.1 % 40.0-75.0 %Lymph 29.4 % 17.0-45.0 %[place] 8.6 % 1.0-11.0 %Eos 3.8 % 0.0-6.0 %Baso 1.1 % 0.0-2.0 #Neut 4.4 10^3/M3 1.5-8.0 #Lymph 2.2 10^3/M3 0.8-3.2 #[place] 0.7 10^3/M3 0.0-0.8 #Eos 0.3 10^3/m3 0.0-0.4 #Baso 0.1 10^3/m3 0.0-0.2 Comp. Met 02/18/2023 [facility] [address] [place] [address] [phone] Glucose 96 mg/dL 70-110 BUN 18 mg/dL [...] 2.0-3.4 GFR 72 ML/MIN/1.73SQM >60 Lipid 02/18/2023 [facility] [address] [place] [address] [phone] Cholesterol 164 mg/dL 0-200 1 Triglyceride 79 mg/dL 0-150 2 HDLD 62 mg/dL See Comment 3 Measured LDL 99 mg/dL 0-130 4 Calc VLDL 15.8 mg/dL See Comment 5 Chol/HDL 2.6 RATIO See Comment 6 Non-HDL 102 mg/dL See Comment 7 Laboratory test finding 02/18/2023 [facility] [address] [place] [address] [phone] Vitd-25Oh 77 ng/mL 30-100 VB12 411 pg/mL [...] LDL Target Procedures Date Code Description Status 05/27/2023 55848 Therapeutic Procedure Group Completed 05/27/2023 09314 Therapeutic Activities Direc t, Each 15 Minutes Completed 05/27/2023 08622 Hot/Cold Pack Completed 05/27/2023 39668 Manual Net Mender 1/> Area 15 Min Each Region Completed 05/27/2023 74405 Therapy Proc, Neuromuscular Reeducation Of Movement Completed 05/24/2023 54035 Therapeutic Activities Direc t, Each 15 Minutes Completed 05/24/2023 84729 Manual Net Mender 1/> Area 15 Min Each Region Completed 05/24/2023 75909 Therapy Proc, Neuromuscular Reeducation Of Movement Completed 05/24/2023 59322 Therapy Proc 1/> Area 15Min Ea Completed 05/24/2023 66564 Hot/Cold Pack Completed 05/22/2023 93214 Therapeutic Activities Direc t, Each 15 Minutes Completed 05/22/2023 18099 Manual Net Mender 1/> Area 15 Min Each Region Completed 05/22/2023 95085 Therapy Proc, Neuromuscular Reeducation Of Movement Completed 05/22/2023 16348 Therapy Proc 1/> Area 15Min Ea Completed 05/22/2023 02533 Hot/Cold Pack Completed 05/20/2023 94695 Therapy Proc 1/> Area 15Min Ea Completed 05/20/2023 95933 Hot/Cold Pack Completed 05/20/2023 96156 Therapy Proc, Neuromuscular Reeducation Of Movement Completed 05/20/2023 04328 Manual Net Mender 1/> Area 15 Min Each Region Completed 05/20/2023 98280 Therapeutic Activities Direc t, Each 15 Minutes Completed 05/17/2023 72490 Therapeutic Activities Direc t, Each 15 Minutes Completed 05/17/2023 61732 Manual Net Mender 1/> Area 15 Min Each Region Completed 05/17/2023 22977 Therapy Proc, Neuromuscular Reeducation Of Movement Completed 05/17/2023 93189 Therapy Proc 1/> Area 15Min Ea Completed 05/17/2023 11863 Hot/Cold Pack Completed 05/15/2023 22513 Therapeutic Activities Direc t, Each 15 Minutes Completed 05/15/2023 30248 Manual Net Mender 1/> Area 15 Min Each Region Completed 05/15/2023 53203 Therapy Proc, Neuromuscular Reeducation Of Movement Completed 05/15/2023 74038 Therapy Proc 1/> Area 15Min Ea Completed 05/15/2023 99131 Hot/Cold Pack Completed 2023 58903 Manual Net Mender 1/> Area 15 Min Each Region Completed 2023 50860 Hot/Cold Pack Completed 2023 54325 Therapy Proc 1/> Area 15Min Ea Completed 2023 67449 Therapeutic Activities Direc t, Each 15 Minutes Completed 2023 96886 Therapy Proc, Neuromuscular Reeducation Of Movement Completed 05/10/2023 66846 Therapeutic Activities Direc t, Each 15 Minutes Completed 05/10/2023 24862 Manual Net Mender 1/> Area 15 Min Each Region Completed 05/10/2023 18405 Therapy Proc, Neuromuscular Reeducation Of Movement Completed 05/10/2023 68961 Therapy Proc 1/> Area 15Min Ea Completed 05/10/2023 03709 Hot/Cold Pack Completed 05/08/2023 86450 Therapeutic Activities Direc t, Each 15 Minutes Completed 05/08/2023 13643 Manual Net Mender 1/> Area 15 Min Each Region Completed 05/08/2023 86703 Therapy Proc, Neuromuscular Reeducation Of Movement Completed 05/08/2023 43129 Therapy Proc 1/> Area 15Min Ea Completed 05/08/2023 09300 Hot/Cold Pack Completed 05/06/2023 24084 Manual Net Mender 1/> Area 15 Min Each Region Completed 05/06/2023 43237 Hot/Cold Pack Completed 05/06/2023 35607 Therapy Proc 1/> Area 15Min Ea Completed 05/06/2023 48641 Therapy Proc, Neuromuscular Reeducation Of Movement Completed 05/06/2023 21196 Therapeutic Activities Direc t, Each 15 Minutes Completed 05/02/2023 57507 Therapeutic Activities Direc t, Each 15 Minutes Completed 05/02/2023 98737 Manual Net Mender 1/> Area 15 Min Each Region Completed 05/02/2023 63065 Therapy Proc, Neuromuscular Reeducation Of Movement Completed 05/02/2023 98725 Therapy Proc 1/> Area 15Min Ea Completed 04/30/2023 01728 Manual Net Mender 1/> Area 15 Min Each Region Completed 04/30/2023 38989 Therapy Proc, Neuromuscular Reeducation Of Movement Completed 04/30/2023 90431 Therapy Proc 1/> Area 15Min Ea Completed 04/30/2023 66131 Hot/Cold Pack Completed 04/24/2023 76369 Therapy Proc 1/> Area 15Min Ea Completed 04/24/2023 83778 Manual Net Mender 1/> Area 15 Min Each Region Completed 04/24/2023 63932 Therapy Proc, Neuromuscular Reeducation Of Movement Completed 04/22/2023 71141 Manual Net Mender 1/> Area 15 Min Each Region Completed 04/22/2023 83667 Therapy Proc, Neuromuscular Reeducation Of Movement Completed 04/22/2023 64160 Therapy Proc 1/> Area 15Min Ea Completed 04/22/2023 13610 Hot/Cold Pack Completed 04/19/2023 45681 Manual Net Mender 1/> Area 15 Min Each Region Completed 04/19/2023 72872 Therapy Proc, Neuromuscular Reeducation Of Movement Completed 04/19/2023 65750 Therapy Proc 1/> Area 15Min Ea Completed 04/19/2023 03323 Hot/Cold Pack Completed 04/18/2023 57033 Manual Net Mender 1/> Area 15 Min Each Region Completed 04/18/2023 57445 Therapy Proc, Neuromuscular Reeducation Of Movement Completed 04/18/2023 21912 Therapy Proc 1/> Area 15Min Ea Completed 04/15/2023 26184 Hot/Cold Pack Completed 04/15/2023 00549 Therapy Proc 1/> Area 15Min Ea Completed 04/15/2023 34374 Therapy Proc, Neuromuscular Reeducation Of Movement Completed 04/15/2023 57286 Manual Net Mender 1/> Area 15 Min Each Region Completed 04/12/2023 10941 Manual Net Mender 1/> Area 15 Min Each Region Completed 04/12/2023 51340 Therapy Proc, Neuromuscular Reeducation Of Movement Completed 04/12/2023 73217 Therapy Proc 1/> Area 15Min Ea Completed 04/12/2023 21936 Hot/Cold Pack Completed 04/10/2023 38069 Manual Net Mender 1/> Area 15 Min Each Region Completed 04/10/2023 87599 Therapy Proc, Neuromuscular Reeducation Of Movement Completed 04/10/2023 54258 Therapy Proc 1/> Area 15Min Ea Completed 04/08/2023 71156 Manual Net Mender 1/> Area 15 Min Each Region Completed 04/08/2023 23279 Therapy Proc, Neuromuscular Reeducation Of Movement Completed 04/08/2023 73667 Therapy Proc 1/> Area 15Min Ea Completed 04/05/2023 20534 Manual Net Mender 1/> Area 15 Min Each Region Completed 04/05/2023 86743 Therapy Proc, Neuromuscular Reeducation Of Movement Completed 04/05/2023 52173 Therapy Proc 1/> Area 15Min Ea Completed 04/03/2023 15635 Therapy Proc 1/> Area 15Min Ea Completed 04/03/2023 02900 Manual Net Mender 1/> Area 15 Min Each Region Completed 04/03/2023 00089 Therapy Proc, Neuromuscular Reeducation Of Movement Completed 04/01/2023 78690 Manual Net Mender 1/> Area 15 Min Each Region Completed 04/01/2023 58287 Therapy Proc, Neuromuscular Reeducation Of Movement Completed 04/01/2023 92314 Therapy Proc 1/> Area 15Min Ea Completed 03/29/2023 66433 Manual Net Mender 1/> Area 15 Min Each Region Completed 03/29/2023 58925 Therapy Proc, Neuromuscular Reeducation Of Movement Completed 03/29/2023 52013 Therapy Proc 1/> Area 15Min Ea Completed 03/27/2023 30354 Manual Net Mender 1/> Area 15 Min Each Region Completed 03/27/2023 49532 Therapy Proc, Neuromuscular Reeducation Of Movement Completed 03/27/2023 25338 Therapy Proc 1/> Area 15Min Ea Completed 03/25/2023 78625 Manual Net Mender 1/> Area 15 Min Each Region Completed 03/25/2023 57960 Therapy Proc, Neuromuscular Reeducation Of Movement Completed 03/25/2023 46526 Therapy Proc 1/> Area 15Min Ea Completed 03/22/2023 41630 Therapy Proc, Neuromuscular Reeducation Of Movement Completed 03/22/2023 92316 Therapy Proc 1/> Area 15Min Ea Completed 03/22/2023 22282 Manual Net Mender 1/> Area 15 Min Each Region Completed 03/20/2023 93149 Manual Net Mender 1/> Area 15 Min Each Region Completed 03/20/2023 95691 Therapy Proc, Neuromuscular Reeducation Of Movement Completed 03/20/2023 57786 Therapy Proc 1/> Area 15Min Ea Completed 03/18/2023 47203 Manual Net Mender 1/> Area 15 Min Each Region Completed 03/18/2023 14449 Therapy Proc, Neuromuscular Reeducation Of Movement Completed 03/18/2023 26921 Therapy Proc 1/> Area 15Min Ea Completed 03/15/2023 14904 Manual Net Mender 1/> Area 15 Min Each Region Completed 03/15/2023 63790 Therapy Proc, Neuromuscular Reeducation Of Movement Completed 03/15/2023 71634 Therapy Proc 1/> Area 15Min Ea Completed 03/13/2023 19057 Physical Therapy Evaluation Moderate Complexity Completed 03/13/2023 23170 Manual Net Mender 1/> Area 15 Min Each Region Completed 03/13/2023 52515 Therapy Proc 1/> Area 15Min Ea Completed 02/18/2023 69808 Venipuncture Routine Complet ed Medical Devices Description No Information Available Encounters Type Date Location Provider Dx Diagnosis Office Visit 02/22/2023 10:30a Jonatan Almodovar, I10 Essential (pr imary) hypertension 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 F41.1 Generalized anxiety disorder M15.0 Primary generalized (osteo)arthritis Assessments Date Code Description Provider 05/27/2023 R26.2 Difficulty in wa lking, not [...] 05/20/2023 M25.511 Pain in right shoulder Oziel jeremy Garcia, DPT 05/17/2023 R26.2 Difficulty in wa lking, not elsewhere classified Aki Garcia, DPT 05/17/2023 M25.511 Pain in right shoulder Oziel jeremy Garcia, DPT 05/15/2023 R26.2 Difficulty in wa lking, not elsewhere classified Aki Garcia, DPT 05/15/2023 M25.511 Pain in right shoulder Oziel jeremy Garcia, DPT 2023 R26.2 Difficulty in wa lking, not elsewhere classified Aki Garcia, DPT 2023 M25.511 Pain in right shoulder Oziel jeremy Garcia, DPT 05/10/2023 R26.2 Difficulty in wa lking, not elsewhere classified Aki Garcia DPT 05/10/2023 M25.511 Pain in right shoulder Oziel jeremy Garcia, DPT 05/08/2023 R26.2 Difficulty in wa lking, not elsewhere classified Aki Garcia DPT 05/08/2023 M25.511 Pain in right shoulder Oziel jeremy Garcia, DPT 05/06/2023 R26.2 Difficulty in wa [...] Difficulty in wa lking, not elsewhere classified Scientologist Jose, DPT 03/13/2023 M25.511 Pain in right [...] I10 Essential (primary) hyperten vickie [facility] [place] 02/18/2023 E55.9 Vitamin D deficiency, unspec ified Dawson Almodovar, DO 02/18/2023 E55.9 Vitamin D deficiency, unspec ified [facility] - [place] 02/18/2023 E53.8 Deficiency of ot her specified B group vitamins Dawson Almodovar, 02/18/2023 E53.8 Deficiency of ot her specified B group vitamins [facility] [place] Plan of Treatment Future Appointment(s):* 09/06/2023 10:30 am - Dawson Almodovar DO at [place] * 08/28/2023 10:30 am - [facility] Status Description No Information Available Mental Status Description No Information Available Referrals Description No Information Available"
--- OUTSIDE RECORDS SUMMARY | 2023-10-11 13:21 | External Medical Summary | Continuity of Care Document ---
Author Name AKI GARCIA DPT Address [address] [address] Phone [phone] Organization [facility], Address [address] [place] [address] Phone [phone] Problems Active Problems Provider Date Essential hypertension [...] SIG Qnty Indications Order ing Provider Date Tctjynmhnp00bh Tablets 2 tablets by mouth every day 30tabs R60.0 Fior Rodriguez MD, PhD 10/05/2022 Multi + Sawyer-3 Adult GummiesChewtabs 1 by mouth every day Dawson Almodovar DO 08/08/2022 Vitamin B ComplexTablets 1 by mouth every day Dawson Almodovar DO 08/08/2022 Losartan Potassium/Hydrochlorothi [id number] Tablets 1 by mouth every day 90tabs I10 Dawson Almodovar, DO 03/21/2020 Juice Plus Fibre` Dawson Almodovar, DO 02/19/2018 Aspirin Adult Low Jdzp90ni Tablets DR 1 by mouth every day Unknown Citalopram [id number] Tablets 1 by mouth every day 90tabs F41.1 Dawson Almodovar, DO Vitamin D3 Maximum [id number] (5000 Ut) Capsules 1 by mouth once daily Unknown Immunizations CPT Code Status Date Vaccine Lot # [id number] Given 07/14/2009 Pneumococcal Vaccine/Pneu movax 23 23342 Refused 10/19/2022 Shingrix 26510 Refused 08/08/2022 Pneumococcal Conjugate-Pr evnar 20 37163 Refused 08/08/2022 Influenza Vac, Split, Preservative Free High Dose Age 65 & > 33066 Refused 04/20/2022 Moderna Sars-Co v-2 (Cov-19) vacc,100 mcg/ 0.5 mL 12Y+EMR Doc Only 06710 Refused 10/16/2021 Influenza Virus Vaccine, Quadrivalent (Cciiv4), Derived From Cell 30637 Refused 10/16/2021 Shingrix 00466 Refused 10/16/2021 Pneumococcal Conjugate-Pr evnar 13 99886 Refused 03/20/2021 Pfizer Sars-Cov -2 (Cov-19) vacc 30mcg/0.3ML 12Y+ EMR Doc Only 61853 Refused 04/17/2019 Influenza Vacci ne, Inactivated, Subunit, Adjuvanted, For Intrmusc 13878 Refused 01/29/2019 Tdap (Tetanus, diphtheria & acel. pertussis) Adacel or Boostrix 76514 Refused 01/29/2019 Pneumococcal Conjugate-Pr evnar 13 Vital [...] H/L Range N ote CBC W/Diff 02/18/2023 [facility] [address] [place] [address] [phone] WBC 7.6 10^3/M3 3.1-9.2 RBC 4.19 10^6/M3 3.70-5.50 HGB 12.2 GR/DL 11.5-16.1 HCT 36.6 % 34.5-47.8 MCV 87.5 CUMICR 82.6-95.8 MCH 29.1 PICOGR 27.9-32.9 MCHC 33.3 % 32.6-35.4 RDW 14.9 % High 11.4-14.6 PLT 225 10^3/M3 140-350 MPV 8.8 CUMICR 7.0-10.6 %Neut 57.1 % 40.0-75.0 %Lymph 29.4 % 17.0-45.0 %Rankin 8.6 % 1.0-11.0 %Eos 3.8 % 0.0-6.0 %Baso 1.1 % 0.0-2.0 #Neut 4.4 10^3/M3 1.5-8.0 #Lymph 2.2 10^3/M3 0.8-3.2 #Rankin 0.7 10^3/M3 0.0-0.8 #Eos 0.3 10^3/m3 0.0-0.4 #Baso 0.1 10^3/m3 0.0-0.2 Comp. Met 02/18/2023 [facility] [address] [place] [address] [phone] Glucose 96 mg/dL 70-110 BUN 18 mg/dL [...] 2.0-3.4 GFR 72 ML/MIN/1.73SQM >60 Lipid 02/18/2023 [facility] [address] [place] [address] [phone] Cholesterol 164 mg/dL 0-200 1 Triglyceride 79 mg/dL 0-150 2 HDLD 62 mg/dL See Comment 3 Measured LDL 99 mg/dL 0-130 4 Calc VLDL 15.8 mg/dL See Comment 5 Chol/HDL 2.6 RATIO See Comment 6 Non-HDL 102 mg/dL See Comment 7 Laboratory test finding 02/18/2023 [facility] [address] [place] [address] [phone] Vitd-25Oh 77 ng/mL 30-100 VB12 411 pg/mL 230-1050 BMP 11/27/2022 [facility] [address] [place] [address] [phone] Glucose 95 mg/dL 70-110 BUN 14 mg/dL 6-25 Creatinine 0.8 mg/dL 0.5-1.2 Sodium 136 mEq/L 135-145 Potassium 4.0 mEq/L 3.5-5.0 Chloride 97 mEq/L 95-107 Co-2 29 mEq/L 24-31 Calcium 9.8 mg/dL 8.5-10.6 GFR 72 >60 1 CHOLESTEROL Less than 200mg/dl Low risk [...] LDL Target Procedures Date Code Description Status 05/22/2023 58670 Manual Supervisor Pyrotechnic Loading 1/> Area 15 Min Each Region Completed 05/22/2023 35965 Therapy Proc, Neuromuscular Reeducation Of Movement Completed 05/22/2023 65682 Therapy Proc 1/> Area 15Min Ea Completed 05/22/2023 48138 Hot/Cold Pack Completed 05/22/2023 71542 Therapeutic Activities Direc t, Each 15 Minutes Completed 05/20/2023 71320 Therapeutic Activities Direc t, Each 15 Minutes Completed 05/20/2023 40086 Manual Supervisor Pyrotechnic Loading 1/> Area 15 Min Each Region Completed 05/20/2023 01836 Therapy Proc, Neuromuscular Reeducation Of Movement Completed 05/20/2023 55123 Therapy Proc 1/> Area 15Min Ea Completed 05/20/2023 88928 Hot/Cold Pack Completed 05/17/2023 26541 Therapy Proc 1/> Area 15Min Ea Completed 05/17/2023 17710 Hot/Cold Pack Completed 05/17/2023 41957 Therapy Proc, Neuromuscular Reeducation Of Movement Completed 05/17/2023 50321 Manual Supervisor Pyrotechnic Loading 1/> Area 15 Min Each Region Completed 05/17/2023 95756 Therapeutic Activities Direc t, Each 15 Minutes Completed 05/15/2023 54853 Therapeutic Activities Direc t, Each 15 Minutes Completed 05/15/2023 57870 Manual Supervisor Pyrotechnic Loading 1/> Area 15 Min Each Region Completed 05/15/2023 77238 Therapy Proc, Neuromuscular Reeducation Of Movement Completed 05/15/2023 36298 Therapy Proc 1/> Area 15Min Ea Completed 05/15/2023 48682 Hot/Cold Pack Completed 2023 59144 Therapeutic Activities Direc t, Each 15 Minutes Completed 2023 26407 Manual Supervisor Pyrotechnic Loading 1/> Area 15 Min Each Region Completed 2023 62757 Therapy Proc, Neuromuscular Reeducation Of Movement Completed 2023 58068 Therapy Proc 1/> Area 15Min Ea Completed 2023 08245 Hot/Cold Pack Completed 05/10/2023 06262 Therapy Proc 1/> Area 15Min Ea Completed 05/10/2023 05437 Hot/Cold Pack Completed 05/10/2023 74533 Therapy Proc, Neuromuscular Reeducation Of Movement Completed 05/10/2023 14736 Therapeutic Activities Direc t, Each 15 Minutes Completed 05/10/2023 55180 Manual Supervisor Pyrotechnic Loading 1/> Area 15 Min Each Region Completed 05/08/2023 49489 Therapeutic Activities Direc t, Each 15 Minutes Completed 05/08/2023 70995 Manual Supervisor Pyrotechnic Loading 1/> Area 15 Min Each Region Completed 05/08/2023 28950 Therapy Proc, Neuromuscular Reeducation Of Movement Completed 05/08/2023 82705 Therapy Proc 1/> Area 15Min Ea Completed 05/08/2023 13804 Hot/Cold Pack Completed 05/06/2023 76819 Therapeutic Activities Direc t, Each 15 Minutes Completed 05/06/2023 18330 Manual Supervisor Pyrotechnic Loading 1/> Area 15 Min Each Region Completed 05/06/2023 12645 Therapy Proc, Neuromuscular Reeducation Of Movement Completed 05/06/2023 52711 Therapy Proc 1/> Area 15Min Ea Completed 05/06/2023 86660 Hot/Cold Pack Completed 05/02/2023 63193 Therapy Proc, Neuromuscular Reeducation Of Movement Completed 05/02/2023 75296 Therapy Proc 1/> Area 15Min Ea Completed 05/02/2023 31391 Manual Supervisor Pyrotechnic Loading 1/> Area 15 Min Each Region Completed 05/02/2023 25306 Therapeutic Activities Direc t, Each 15 Minutes Completed 04/30/2023 80344 Manual Supervisor Pyrotechnic Loading 1/> Area 15 Min Each Region Completed 04/30/2023 76364 Therapy Proc, Neuromuscular Reeducation Of Movement Completed 04/30/2023 02023 Therapy Proc 1/> Area 15Min Ea Completed 04/30/2023 20258 Hot/Cold Pack Completed 04/24/2023 55880 Manual Supervisor Pyrotechnic Loading 1/> Area 15 Min Each Region Completed 04/24/2023 45548 Therapy Proc, Neuromuscular Reeducation Of Movement Completed 04/24/2023 86359 Therapy Proc 1/> Area 15Min Ea Completed 04/22/2023 92275 Manual Supervisor Pyrotechnic Loading 1/> Area 15 Min Each Region Completed 04/22/2023 28135 Therapy Proc, Neuromuscular Reeducation Of Movement Completed 04/22/2023 16562 Therapy Proc 1/> Area 15Min Ea Completed 04/22/2023 55665 Hot/Cold Pack Completed 04/19/2023 58402 Hot/Cold Pack Completed 04/19/2023 58397 Manual Supervisor Pyrotechnic Loading 1/> Area 15 Min Each Region Completed 04/19/2023 71774 Therapy Proc, Neuromuscular Reeducation Of Movement Completed 04/19/2023 34375 Therapy Proc 1/> Area 15Min Ea Completed 04/18/2023 16862 Therapy Proc, Neuromuscular Reeducation Of Movement Completed 04/18/2023 94819 Therapy Proc 1/> Area 15Min Ea Completed 04/18/2023 31420 Manual Supervisor Pyrotechnic Loading 1/> Area 15 Min Each Region Completed 04/15/2023 91521 Manual Supervisor Pyrotechnic Loading 1/> Area 15 Min Each Region Completed 04/15/2023 38601 Therapy Proc, Neuromuscular Reeducation Of Movement Completed 04/15/2023 66205 Therapy Proc 1/> Area 15Min Ea Completed 04/15/2023 67383 Hot/Cold Pack Completed 04/12/2023 19694 Manual Supervisor Pyrotechnic Loading 1/> Area 15 Min Each Region Completed 04/12/2023 26193 Therapy Proc, Neuromuscular Reeducation Of Movement Completed 04/12/2023 27101 Therapy Proc 1/> Area 15Min Ea Completed 04/12/2023 52844 Hot/Cold Pack Completed 04/10/2023 92731 Therapy Proc, Neuromuscular Reeducation Of Movement Completed 04/10/2023 67376 Therapy Proc 1/> Area 15Min Ea Completed 04/10/2023 13624 Manual Supervisor Pyrotechnic Loading 1/> Area 15 Min Each Region Completed 04/08/2023 10923 Manual Supervisor Pyrotechnic Loading 1/> Area 15 Min Each Region Completed 04/08/2023 32567 Therapy Proc, Neuromuscular Reeducation Of Movement Completed 04/08/2023 64792 Therapy Proc 1/> Area 15Min Ea Completed 04/05/2023 87366 Manual Supervisor Pyrotechnic Loading 1/> Area 15 Min Each Region Completed 04/05/2023 64099 Therapy Proc, Neuromuscular Reeducation Of Movement Completed 04/05/2023 68051 Therapy Proc 1/> Area 15Min Ea Completed 04/03/2023 71018 Manual Supervisor Pyrotechnic Loading 1/> Area 15 Min Each Region Completed 04/03/2023 90214 Therapy Proc, Neuromuscular Reeducation Of Movement Completed 04/03/2023 05463 Therapy Proc 1/> Area 15Min Ea Completed 04/01/2023 59346 Therapy Proc 1/> Area 15Min Ea Completed 04/01/2023 99423 Manual Supervisor Pyrotechnic Loading 1/> Area 15 Min Each Region Completed 04/01/2023 07006 Therapy Proc, Neuromuscular Reeducation Of Movement Completed 03/29/2023 85875 Manual Supervisor Pyrotechnic Loading 1/> Area 15 Min Each Region Completed 03/29/2023 51314 Therapy Proc, Neuromuscular Reeducation Of Movement Completed 03/29/2023 21872 Therapy Proc 1/> Area 15Min Ea Completed 03/27/2023 09348 Manual Supervisor Pyrotechnic Loading 1/> Area 15 Min Each Region Completed 03/27/2023 49421 Therapy Proc, Neuromuscular Reeducation Of Movement Completed 03/27/2023 71232 Therapy Proc 1/> Area 15Min Ea Completed 03/25/2023 18205 Manual Supervisor Pyrotechnic Loading 1/> Area 15 Min Each Region Completed 03/25/2023 42004 Therapy Proc, Neuromuscular Reeducation Of Movement Completed 03/25/2023 76895 Therapy Proc 1/> Area 15Min Ea Completed 03/22/2023 31512 Manual Supervisor Pyrotechnic Loading 1/> Area 15 Min Each Region Completed 03/22/2023 85820 Therapy Proc, Neuromuscular Reeducation Of Movement Completed 03/22/2023 21129 Therapy Proc 1/> Area 15Min Ea Completed 03/20/2023 80306 Manual Supervisor Pyrotechnic Loading 1/> Area 15 Min Each Region Completed 03/20/2023 18974 Therapy Proc 1/> Area 15Min Ea Completed 03/20/2023 19044 Therapy Proc, Neuromuscular Reeducation Of Movement Completed 03/18/2023 26914 Manual Supervisor Pyrotechnic Loading 1/> Area 15 Min Each Region Completed 03/18/2023 31620 Therapy Proc, Neuromuscular Reeducation Of Movement Completed 03/18/2023 53987 Therapy Proc 1/> Area 15Min Ea Completed 03/15/2023 18386 Manual Supervisor Pyrotechnic Loading 1/> Area 15 Min Each Region Completed 03/15/2023 89229 Therapy Proc, Neuromuscular Reeducation Of Movement Completed 03/15/2023 85849 Therapy Proc 1/> Area 15Min Ea Completed 03/13/2023 93357 Physical Therapy Evaluation Moderate Complexity Completed 03/13/2023 58442 Manual Supervisor Pyrotechnic Loading 1/> Area 15 Min Each Region Completed 03/13/2023 02743 Therapy Proc 1/> Area 15Min Ea Completed 02/18/2023 35780 Venipuncture Routine Complet ed 11/27/2022 27320 Venipuncture Routine Complet ed Medical Devices Description No Information Available Encounters Type Date Location Provider Dx Diagnosis Office Visit 02/22/2023 10:30a [place] Dawson CintiaAlvin Almodovar, DO I10 Essential (pr imary) hypertension 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 F41.1 Generalized anxiety disorder M15.0 Primary generalized (osteo)arthritis Assessments Date Code Description Provider 05/22/2023 R26.2 Difficulty in wa lking, not [...] lking, not elsewhere classified Aki Garcia DPT 05/02/2023 M25.511 Pain in right shoulder [...] I10 Essential (primary) hypertdania johnston [facility] - [place] 02/18/2023 E55.9 Vitamin D deficiency, unspec ified Dawson Almodovar, DO 02/18/2023 E55.9 Vitamin D deficiency, unspec ified Lab - [place] 02/18/2023 E53.8 Deficiency of ot her specified B group vitamins Dawson Almodovar, DO 02/18/2023 E53.8 Deficiency of ot her specified B group vitamins Lab - [place] 11/27/2022 R60.0 Localized edema Dawson Garcia or, DO 11/27/2022 R60.0 Localized edema Lab - [place] 11/27/2022 I10 Essential (primary) tana vickie Almodovar, DO 11/27/2022 I10 Essential (primary) tana johnston [facility] - [place] Plan of Treatment Future Appointment(s):* 09/06/2023 10:30 am - Dawson Almodovar DO at [place] * 08/28/2023 10:30 am - [facility] [place] [facility] [place] Functional Status Description No Information Available Mental Status Description No Information Available Referrals Description No Information Available"
--- OUTSIDE RECORDS SUMMARY | 2023-10-11 13:21 | External Medical Summary | Continuity of Care Document ---
Author Name AKI GARCIA DPT Address [address] [address] Phone [phone] Organization [facility], Address [address] [place] [address] Phone [phone] Problems Active Problems Provider Date Essential hypertension [...] SIG Qnty Indications Order ing Provider Date Pvgnecmgme75gg Tablets 2 tablets by mouth every day 30tabs R60.0 Fior Rodriguez MD, PhD 10/05/2022 Multi + [place]-3 Adult GummiesChewtabs 1 by mouth every day Dawson Almodovar DO 08/08/2022 Vitamin B ComplexTablets 1 by mouth every day Dawson Almodovar DO 08/08/2022 Losartan Potassium/Hydrochlorothi mzhan260-20ft Tablets 1 by mouth every day 90tabs I10 Dawson lAmodovar, DO 03/21/2020 Juice Plus Fibre` Dawson Almodovar, DO 02/19/2018 Aspirin Adult Low Pobw38vz Tablets DR 1 by mouth every day Unknown Citalopram Tomavczbwxtw00xd Tablets 1 by mouth every day 90tabs F41.1 Dawson Almodovar, DO Vitamin D3 Maximum [id number] (5000 Ut) Capsules 1 by mouth once daily Unknown Immunizations CPT Code Status Date Vaccine Lot # [id number] Given 07/14/2009 Pneumococcal Vaccine/Pneu movax 23 77559 Refused 10/19/2022 Shingrix 13008 Refused 08/08/2022 Pneumococcal Conjugate-Pr evnar 20 42461 Refused 08/08/2022 Influenza Vac, Split, Preservative Free High Dose Age 65 & > [id number] Refused 04/20/2022 Moderna Sars-Co v-2 (Cov-19) vacc,100 mcg/ 0.5 mL 12Y+EMR Doc Only 26864 Refused 10/16/2021 Influenza Virus Vaccine, Quadrivalent (Cciiv4), Derived From Cell 41399 Refused 10/16/2021 Shingrix 82677 Refused 10/16/2021 Pneumococcal Conjugate-Pr evnar 13 55275 Refused 03/20/2021 Pfizer Sars-Cov -2 (Cov-19) vacc 30mcg/0.3ML 12Y+ EMR Doc Only 21275 Refused 04/17/2019 Influenza Vacci ne, Inactivated, Subunit, Adjuvanted, For Intrmusc 93870 Refused 01/29/2019 Tdap (Tetanus, diphtheria & acel. pertussis) Adacel or Boostrix 89568 Refused 01/29/2019 Pneumococcal Conjugate-Pr evnar 13 Vital [...] H/L Range N ote CBC W/Diff 02/18/2023 [facility]. [address] [place] [address] [phone] WBC 7.6 10^3/M3 3.1-9.2 RBC 4.19 10^6/M3 3.70-5.50 HGB 12.2 GR/DL 11.5-16.1 HCT 36.6 % 34.5-47.8 MCV 87.5 CUMICR 82.6-95.8 MCH 29.1 PICOGR 27.9-32.9 MCHC 33.3 % 32.6-35.4 RDW 14.9 % High 11.4-14.6 PLT 225 10^3/M3 140-350 MPV 8.8 CUMICR 7.0-10.6 %Neut 57.1 % 40.0-75.0 %Lymph 29.4 % 17.0-45.0 %Wake 8.6 % 1.0-11.0 %Eos 3.8 % 0.0-6.0 %Baso 1.1 % 0.0-2.0 #Neut 4.4 10^3/M3 1.5-8.0 #Lymph 2.2 10^3/M3 0.8-3.2 #Wake 0.7 10^3/M3 0.0-0.8 #Eos 0.3 10^3/m3 0.0-0.4 #Baso 0.1 10^3/m3 0.0-0.2 Comp. Met 02/18/2023 [facility]. [address] [place] [address] [phone] Glucose 96 mg/dL 70-110 BUN 18 mg/dL [...] 2.0-3.4 GFR 72 ML/MIN/1.73SQM >60 Lipid 02/18/2023 [facility] [address] [place] [address] [phone] Cholesterol 164 mg/dL 0-200 1 Triglyceride 79 mg/dL 0-150 2 HDLD 62 mg/dL See Comment 3 Measured LDL 99 mg/dL 0-130 4 Calc VLDL 15.8 mg/dL See Comment 5 Chol/HDL 2.6 RATIO See Comment 6 Non-HDL 102 mg/dL See Comment 7 Laboratory test finding 02/18/2023 [facility]. [address] [place] [address] [phone] Vitd-25Oh 77 ng/mL 30-100 VB12 411 pg/mL [...] LDL Target Procedures Date Code Description Status 05/24/2023 49530 Manual Master Mechanic 1/> Area 15 Min Each Region Completed 05/24/2023 78268 Therapeutic Activities Direc t, Each 15 Minutes Completed 05/24/2023 79486 Hot/Cold Pack Completed 05/24/2023 36307 Therapy Proc, Neuromuscular Reeducation Of Movement Completed 05/24/2023 72536 Therapy Proc 1/> Area 15Min Ea Completed 05/22/2023 38246 Therapeutic Activities Direc t, Each 15 Minutes Completed 05/22/2023 16256 Manual Master Mechanic 1/> Area 15 Min Each Region Completed 05/22/2023 34515 Therapy Proc, Neuromuscular Reeducation Of Movement Completed 05/22/2023 01201 Therapy Proc 1/> Area 15Min Ea Completed 05/22/2023 28911 Hot/Cold Pack Completed 05/20/2023 49604 Therapeutic Activities Direc t, Each 15 Minutes Completed 05/20/2023 80564 Manual Master Mechanic 1/> Area 15 Min Each Region Completed 05/20/2023 64861 Therapy Proc, Neuromuscular Reeducation Of Movement Completed 05/20/2023 79574 Therapy Proc 1/> Area 15Min Ea Completed 05/20/2023 56722 Hot/Cold Pack Completed 05/17/2023 51333 Therapy Proc 1/> Area 15Min Ea Completed 05/17/2023 15581 Hot/Cold Pack Completed 05/17/2023 77708 Therapy Proc, Neuromuscular Reeducation Of Movement Completed 05/17/2023 87137 Manual Master Mechanic 1/> Area 15 Min Each Region Completed 05/17/2023 84516 Therapeutic Activities Direc t, Each 15 Minutes Completed 05/15/2023 51032 Therapeutic Activities Direc t, Each 15 Minutes Completed 05/15/2023 81709 Manual Master Mechanic 1/> Area 15 Min Each Region Completed 05/15/2023 90266 Therapy Proc, Neuromuscular Reeducation Of Movement Completed 05/15/2023 36075 Therapy Proc 1/> Area 15Min Ea Completed 05/15/2023 69429 Hot/Cold Pack Completed 2023 71539 Therapeutic Activities Direc t, Each 15 Minutes Completed 2023 58355 Manual Master Mechanic 1/> Area 15 Min Each Region Completed 2023 89542 Therapy Proc, Neuromuscular Reeducation Of Movement Completed 2023 39144 Therapy Proc 1/> Area 15Min Ea Completed 2023 84049 Hot/Cold Pack Completed 05/10/2023 31843 Therapeutic Activities Direc t, Each 15 Minutes Completed 05/10/2023 29695 Hot/Cold Pack Completed 05/10/2023 16489 Therapy Proc 1/> Area 15Min Ea Completed 05/10/2023 38706 Manual Master Mechanic 1/> Area 15 Min Each Region Completed 05/10/2023 33107 Therapy Proc, Neuromuscular Reeducation Of Movement Completed 05/08/2023 10996 Therapeutic Activities Direc t, Each 15 Minutes Completed 05/08/2023 07643 Manual Master Mechanic 1/> Area 15 Min Each Region Completed 05/08/2023 31189 Therapy Proc, Neuromuscular Reeducation Of Movement Completed 05/08/2023 96999 Therapy Proc 1/> Area 15Min Ea Completed 05/08/2023 65622 Hot/Cold Pack Completed 05/06/2023 46879 Therapeutic Activities Direc t, Each 15 Minutes Completed 05/06/2023 89986 Manual Master Mechanic 1/> Area 15 Min Each Region Completed 05/06/2023 96827 Therapy Proc, Neuromuscular Reeducation Of Movement Completed 05/06/2023 59996 Therapy Proc 1/> Area 15Min Ea Completed 05/06/2023 00648 Hot/Cold Pack Completed 05/02/2023 75661 Therapeutic Activities Direc t, Each 15 Minutes Completed 05/02/2023 39760 Therapy Proc 1/> Area 15Min Ea Completed 05/02/2023 86734 Therapy Proc, Neuromuscular Reeducation Of Movement Completed 05/02/2023 49669 Manual Master Mechanic 1/> Area 15 Min Each Region Completed 04/30/2023 52129 Manual Master Mechanic 1/> Area 15 Min Each Region Completed 04/30/2023 12721 Therapy Proc, Neuromuscular Reeducation Of Movement Completed 04/30/2023 94724 Therapy Proc 1/> Area 15Min Ea Completed 04/30/2023 99207 Hot/Cold Pack Completed 04/24/2023 01747 Manual Master Mechanic 1/> Area 15 Min Each Region Completed 04/24/2023 11209 Therapy Proc, Neuromuscular Reeducation Of Movement Completed 04/24/2023 87408 Therapy Proc 1/> Area 15Min Ea Completed 04/22/2023 43796 Hot/Cold Pack Completed 04/22/2023 15034 Therapy Proc, Neuromuscular Reeducation Of Movement Completed 04/22/2023 50808 Manual Master Mechanic 1/> Area 15 Min Each Region Completed 04/22/2023 97150 Therapy Proc 1/> Area 15Min Ea Completed 04/19/2023 08530 Therapy Proc, Neuromuscular Reeducation Of Movement Completed 04/19/2023 71819 Therapy Proc 1/> Area 15Min Ea Completed 04/19/2023 55578 Hot/Cold Pack Completed 04/19/2023 31380 Manual Master Mechanic 1/> Area 15 Min Each Region Completed 04/18/2023 13343 Manual Master Mechanic 1/> Area 15 Min Each Region Completed 04/18/2023 90063 Therapy Proc, Neuromuscular Reeducation Of Movement Completed 04/18/2023 33336 Therapy Proc 1/> Area 15Min Ea Completed 04/15/2023 21035 Manual Master Mechanic 1/> Area 15 Min Each Region Completed 04/15/2023 45382 Therapy Proc, Neuromuscular Reeducation Of Movement Completed 04/15/2023 23928 Therapy Proc 1/> Area 15Min Ea Completed 04/15/2023 72756 Hot/Cold Pack Completed 04/12/2023 75565 Therapy Proc, Neuromuscular Reeducation Of Movement Completed 04/12/2023 82525 Hot/Cold Pack Completed 04/12/2023 39565 Therapy Proc 1/> Area 15Min Ea Completed 04/12/2023 77327 Manual Master Mechanic 1/> Area 15 Min Each Region Completed 04/10/2023 99651 Manual Master Mechanic 1/> Area 15 Min Each Region Completed 04/10/2023 34648 Therapy Proc, Neuromuscular Reeducation Of Movement Completed 04/10/2023 12502 Therapy Proc 1/> Area 15Min Ea Completed 04/08/2023 38897 Manual Master Mechanic 1/> Area 15 Min Each Region Completed 04/08/2023 32097 Therapy Proc, Neuromuscular Reeducation Of Movement Completed 04/08/2023 48720 Therapy Proc 1/> Area 15Min Ea Completed 04/05/2023 68627 Manual Master Mechanic 1/> Area 15 Min Each Region Completed 04/05/2023 58382 Therapy Proc, Neuromuscular Reeducation Of Movement Completed 04/05/2023 39698 Therapy Proc 1/> Area 15Min Ea Completed 04/03/2023 28552 Therapy Proc 1/> Area 15Min Ea Completed 04/03/2023 74963 Manual Master Mechanic 1/> Area 15 Min Each Region Completed 04/03/2023 51695 Therapy Proc, Neuromuscular Reeducation Of Movement Completed 04/01/2023 96864 Manual Master Mechanic 1/> Area 15 Min Each Region Completed 04/01/2023 24379 Therapy Proc, Neuromuscular Reeducation Of Movement Completed 04/01/2023 29080 Therapy Proc 1/> Area 15Min Ea Completed 03/29/2023 75839 Manual Master Mechanic 1/> Area 15 Min Each Region Completed 03/29/2023 73616 Therapy Proc, Neuromuscular Reeducation Of Movement Completed 03/29/2023 12743 Therapy Proc 1/> Area 15Min Ea Completed 03/27/2023 83230 Manual Master Mechanic 1/> Area 15 Min Each Region Completed 03/27/2023 10675 Therapy Proc, Neuromuscular Reeducation Of Movement Completed 03/27/2023 15968 Therapy Proc 1/> Area 15Min Ea Completed 03/25/2023 46303 Manual Master Mechanic 1/> Area 15 Min Each Region Completed 03/25/2023 06596 Therapy Proc, Neuromuscular Reeducation Of Movement Completed 03/25/2023 08526 Therapy Proc 1/> Area 15Min Ea Completed 03/22/2023 20590 Therapy Proc, Neuromuscular Reeducation Of Movement Completed 03/22/2023 04157 Therapy Proc 1/> Area 15Min Ea Completed 03/22/2023 21257 Manual Master Mechanic 1/> Area 15 Min Each Region Completed 03/20/2023 38344 Manual Master Mechanic 1/> Area 15 Min Each Region Completed 03/20/2023 25178 Therapy Proc, Neuromuscular Reeducation Of Movement Completed 03/20/2023 81436 Therapy Proc 1/> Area 15Min Ea Completed 03/18/2023 74570 Manual Master Mechanic 1/> Area 15 Min Each Region Completed 03/18/2023 73669 Therapy Proc, Neuromuscular Reeducation Of Movement Completed 03/18/2023 01083 Therapy Proc 1/> Area 15Min Ea Completed 03/15/2023 73477 Manual Master Mechanic 1/> Area 15 Min Each Region Completed 03/15/2023 09919 Therapy Proc, Neuromuscular Reeducation Of Movement Completed 03/15/2023 43829 Therapy Proc 1/> Area 15Min Ea Completed 03/13/2023 31475 Physical Therapy Evaluation Moderate Complexity Completed 03/13/2023 05907 Manual Master Mechanic 1/> Area 15 Min Each Region Completed 03/13/2023 06866 Therapy Proc 1/> Area 15Min Ea Completed 02/18/2023 80680 Venipuncture Routine Complet ed Medical Devices Description No Information Available Encounters Type Date Location Provider Dx Diagnosis [place] Essential (pr imary) hypertension 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 F41.1 Generalized anxiety disorder M15.0 Primary generalized (osteo)arthritis Assessments Date Code Description Provider 05/24/2023 R26.2 Difficulty in wa lking, not [...] I10 Essential (primary) hyperten vickie [facility] - [place] 02/18/2023 E55.9 Vitamin D deficiency, unspec ified Dawson Almodovar, DO 02/18/2023 E55.9 Vitamin D deficiency, unspec ified Lab - [place] 02/18/2023 E53.8 Deficiency of ot her specified B group vitamins Dawson Almodovar, 02/18/2023 E53.8 Deficiency of ot her specified B group vitamins Lab - [place] Plan of Treatment Future Appointment(s):* 09/06/2023 10:30 am - Dawson Almodovar DO at [place] * 08/28/2023 10:30 am - [facility] [place] Functional Status Description No Information Available Mental Status Description No Information Available Referrals Description No Information Available"
--- OUTSIDE RECORDS SUMMARY | 2023-10-11 13:21 | External Medical Summary | Continuity of Care Document ---
Author Name AKI GARCIA DPT Address [address] [address] Phone [phone] Organization [facility], Address [address] [place] [address] Phone [phone] Problems Active Problems Provider Date Essential hypertension [...] SIG Qnty Indications Order ing Provider Date Zheefvdnsh80kv Tablets 2 tablets by mouth every day 30tabs R60.0 Fior Rodriguez MD, PhD 10/05/2022 Multi + [place]-3 Adult GummiesChewtabs 1 by mouth every day Dawson Almodovar DO 08/08/2022 Vitamin B ComplexTablets 1 by mouth every day Dawson Almodovar DO 08/08/2022 Losartan Potassium/Hydrochlorothi [id number] Tablets 1 by mouth every day 90tabs I10 Dawson Almodovar, DO 03/21/2020 Juice Plus Fibre` Dawson Almodovar, DO 02/19/2018 Aspirin Adult Low Dvnk87vl Tablets DR 1 by mouth every day Unknown Citalopram Lweeboghqnuo56kn Tablets 1 by mouth every day 90tabs F41.1 Dawson Almodovar, DO Vitamin D3 Maximum [id number] (5000 Ut) Capsules 1 by mouth once daily Unknown Immunizations CPT Code Status Date Vaccine Lot # [id number] Given 07/14/2009 Pneumococcal Vaccine/Pneu movax 23 72043 Refused 10/19/2022 Shingrix 61420 Refused 08/08/2022 Pneumococcal Conjugate-Pr evnar 20 77706 Refused 08/08/2022 Influenza Vac, Split, Preservative Free High Dose Age 65 & > 33245 Refused 04/20/2022 Moderna Sars-Co v-2 (Cov-19) vacc,100 mcg/ 0.5 mL 12Y+EMR Doc Only 16406 Refused 10/16/2021 Influenza Virus Vaccine, Quadrivalent (Cciiv4), Derived From Cell 93810 Refused 10/16/2021 Shingrix 55408 Refused 10/16/2021 Pneumococcal Conjugate-Pr evnar 13 81390 Refused 03/20/2021 Pfizer Sars-Cov -2 (Cov-19) vacc 30mcg/0.3ML 12Y+ EMR Doc Only 93427 Refused 04/17/2019 Influenza Vacci ne, Inactivated, Subunit, Adjuvanted, For Intrmusc 35027 Refused 01/29/2019 Tdap (Tetanus, diphtheria & acel. pertussis) Adacel or Boostrix 52548 Refused 01/29/2019 Pneumococcal Conjugate-Pr evnar 13 Vital [...] H/L Range N ote CBC W/Diff 02/18/2023 [facility] [address] [place] [address] [phone] WBC 7.6 10^3/M3 3.1-9.2 RBC 4.19 10^6/M3 3.70-5.50 HGB 12.2 GR/DL 11.5-16.1 HCT 36.6 % 34.5-47.8 MCV 87.5 CUMICR 82.6-95.8 MCH 29.1 PICOGR 27.9-32.9 MCHC 33.3 % 32.6-35.4 RDW 14.9 % High 11.4-14.6 PLT 225 10^3/M3 140-350 MPV 8.8 CUMICR 7.0-10.6 %Neut 57.1 % 40.0-75.0 %Lymph 29.4 % 17.0-45.0 %[place] 8.6 % 1.0-11.0 %Eos 3.8 % 0.0-6.0 %[place] 1.1 % 0.0-2.0 #Neut 4.4 10^3/M3 1.5-8.0 #Lymph 2.2 10^3/M3 0.8-3.2 #[place] 0.7 10^3/M3 0.0-0.8 #Eos 0.3 10^3/m3 0.0-0.4 #Bas[place] 0.1 10^3/m3 0.0-0.2 Comp. Met 02/18/2023 [facility] [address] [place] [address] [phone] Glucose 96 mg/dL 70-110 BUN 18 mg/dL [...] 2.0-3.4 GFR 72 ML/MIN/1.73SQM >60 Lipid 02/18/2023 [facility] [address] [place] [address] [phone] Cholesterol 164 mg/dL 0-200 1 Triglyceride 79 mg/dL 0-150 2 HDLD 62 mg/dL See Comment 3 Measured LDL 99 mg/dL 0-130 4 Calc VLDL 15.8 mg/dL See Comment 5 Chol/HDL 2.6 RATIO See Comment 6 Non-HDL 102 mg/dL See Comment 7 Laboratory test finding 02/18/2023 [facility] [address] [place] [address] [phone] Vitd-25Oh 77 ng/mL 30-100 VB12 411 pg/mL 230-1050 BMP 11/27/2022 [facility] [address] [place] [address] [phone] Glucose 95 mg/dL 70-110 BUN 14 mg/dL [...] LDL Target Procedures Date Code Description Status 05/20/2023 94418 Manual Wringer Operator 1/> Area 15 Min Each Region Completed 05/20/2023 55478 Therapy Proc, Neuromuscular Reeducation Of Movement Completed 05/20/2023 05909 Therapy Proc 1/> Area 15Min Ea Completed 05/20/2023 32331 Hot/Cold Pack Completed 05/20/2023 71822 Therapeutic Activities Direc t, Each 15 Minutes Completed 05/17/2023 17696 Therapeutic Activities Direc t, Each 15 Minutes Completed 05/17/2023 26518 Manual Wringer Operator 1/> Area 15 Min Each Region Completed 05/17/2023 37003 Therapy Proc, Neuromuscular Reeducation Of Movement Completed 05/17/2023 17519 Therapy Proc 1/> Area 15Min Ea Completed 05/17/2023 08382 Hot/Cold Pack Completed 05/15/2023 08734 Hot/Cold Pack Completed 05/15/2023 78603 Therapy Proc 1/> Area 15Min Ea Completed 05/15/2023 30095 Therapy Proc, Neuromuscular Reeducation Of Movement Completed 05/15/2023 13309 Manual Wringer Operator 1/> Area 15 Min Each Region Completed 05/15/2023 93900 Therapeutic Activities Direc t, Each 15 Minutes Completed 2023 24679 Therapeutic Activities Direc t, Each 15 Minutes Completed 2023 64978 Manual Wringer Operator 1/> Area 15 Min Each Region Completed 2023 89354 Therapy Proc, Neuromuscular Reeducation Of Movement Completed 2023 75105 Therapy Proc 1/> Area 15Min Ea Completed 2023 04430 Hot/Cold Pack Completed 05/10/2023 62134 Therapeutic Activities Direc t, Each 15 Minutes Completed 05/10/2023 18242 Manual Wringer Operator 1/> Area 15 Min Each Region Completed 05/10/2023 84534 Therapy Proc, Neuromuscular Reeducation Of Movement Completed 05/10/2023 84346 Therapy Proc 1/> Area 15Min Ea Completed 05/10/2023 04798 Hot/Cold Pack Completed 05/08/2023 60582 Manual Wringer Operator 1/> Area 15 Min Each Region Completed 05/08/2023 63784 Hot/Cold Pack Completed 05/08/2023 37704 Therapy Proc 1/> Area 15Min Ea Completed 05/08/2023 47938 Therapy Proc, Neuromuscular Reeducation Of Movement Completed 05/08/2023 85933 Therapeutic Activities Direc t, Each 15 Minutes Completed 05/06/2023 66632 Manual Wringer Operator 1/> Area 15 Min Each Region Completed 05/06/2023 39530 Therapy Proc, Neuromuscular Reeducation Of Movement Completed 05/06/2023 65526 Therapy Proc 1/> Area 15Min Ea Completed 05/06/2023 30462 Hot/Cold Pack Completed 05/06/2023 41539 Therapeutic Activities Direc t, Each 15 Minutes Completed 05/02/2023 87173 Therapeutic Activities Direc t, Each 15 Minutes Completed 05/02/2023 46147 Manual Wringer Operator 1/> Area 15 Min Each Region Completed 05/02/2023 13566 Therapy Proc, Neuromuscular Reeducation Of Movement Completed 05/02/2023 49963 Therapy Proc 1/> Area 15Min Ea Completed 04/30/2023 84445 Therapy Proc, Neuromuscular Reeducation Of Movement Completed 04/30/2023 59280 Hot/Cold Pack Completed 04/30/2023 12303 Therapy Proc 1/> Area 15Min Ea Completed 04/30/2023 67886 Manual Wringer Operator 1/> Area 15 Min Each Region Completed 04/24/2023 93900 Manual Wringer Operator 1/> Area 15 Min Each Region Completed 04/24/2023 44606 Therapy Proc, Neuromuscular Reeducation Of Movement Completed 04/24/2023 14544 Therapy Proc 1/> Area 15Min Ea Completed 04/22/2023 16473 Manual Wringer Operator 1/> Area 15 Min Each Region Completed 04/22/2023 21535 Therapy Proc, Neuromuscular Reeducation Of Movement Completed 04/22/2023 77475 Therapy Proc 1/> Area 15Min Ea Completed 04/22/2023 64723 Hot/Cold Pack Completed 04/19/2023 52899 Therapy Proc 1/> Area 15Min Ea Completed 04/19/2023 03632 Hot/Cold Pack Completed 04/19/2023 49069 Manual Wringer Operator 1/> Area 15 Min Each Region Completed 04/19/2023 65139 Therapy Proc, Neuromuscular Reeducation Of Movement Completed 04/18/2023 63341 Therapy Proc, Neuromuscular Reeducation Of Movement Completed 04/18/2023 80662 Therapy Proc 1/> Area 15Min Ea Completed 04/18/2023 28196 Manual Wringer Operator 1/> Area 15 Min Each Region Completed 04/15/2023 01716 Manual Wringer Operator 1/> Area 15 Min Each Region Completed 04/15/2023 92110 Therapy Proc, Neuromuscular Reeducation Of Movement Completed 04/15/2023 33922 Therapy Proc 1/> Area 15Min Ea Completed 04/15/2023 04246 Hot/Cold Pack Completed 04/12/2023 30181 Manual Wringer Operator 1/> Area 15 Min Each Region Completed 04/12/2023 78259 Therapy Proc, Neuromuscular Reeducation Of Movement Completed 04/12/2023 05974 Therapy Proc 1/> Area 15Min Ea Completed 04/12/2023 55945 Hot/Cold Pack Completed 04/10/2023 93048 Therapy Proc, Neuromuscular Reeducation Of Movement Completed 04/10/2023 26997 Therapy Proc 1/> Area 15Min Ea Completed 04/10/2023 18129 Manual Wringer Operator 1/> Area 15 Min Each Region Completed 04/08/2023 95821 Manual Wringer Operator 1/> Area 15 Min Each Region Completed 04/08/2023 01048 Therapy Proc, Neuromuscular Reeducation Of Movement Completed 04/08/2023 65835 Therapy Proc 1/> Area 15Min Ea Completed 04/05/2023 71138 Manual Wringer Operator 1/> Area 15 Min Each Region Completed 04/05/2023 56703 Therapy Proc, Neuromuscular Reeducation Of Movement Completed 04/05/2023 18813 Therapy Proc 1/> Area 15Min Ea Completed 04/03/2023 57266 Manual Wringer Operator 1/> Area 15 Min Each Region Completed 04/03/2023 94102 Therapy Proc, Neuromuscular Reeducation Of Movement Completed 04/03/2023 02249 Therapy Proc 1/> Area 15Min Ea Completed 04/01/2023 14551 Therapy Proc 1/> Area 15Min Ea Completed 04/01/2023 94192 Manual Wringer Operator 1/> Area 15 Min Each Region Completed 04/01/2023 10422 Therapy Proc, Neuromuscular Reeducation Of Movement Completed 03/29/2023 68583 Manual Wringer Operator 1/> Area 15 Min Each Region Completed 03/29/2023 16431 Therapy Proc, Neuromuscular Reeducation Of Movement Completed 03/29/2023 47504 Therapy Proc 1/> Area 15Min Ea Completed 03/27/2023 08458 Manual Wringer Operator 1/> Area 15 Min Each Region Completed 03/27/2023 77461 Therapy Proc, Neuromuscular Reeducation Of Movement Completed 03/27/2023 44458 Therapy Proc 1/> Area 15Min Ea Completed 03/25/2023 83630 Manual Wringer Operator 1/> Area 15 Min Each Region Completed 03/25/2023 76677 Therapy Proc, Neuromuscular Reeducation Of Movement Completed 03/25/2023 64035 Therapy Proc 1/> Area 15Min Ea Completed 03/22/2023 36833 Manual Wringer Operator 1/> Area 15 Min Each Region Completed 03/22/2023 92375 Therapy Proc, Neuromuscular Reeducation Of Movement Completed 03/22/2023 25404 Therapy Proc 1/> Area 15Min Ea Completed 03/20/2023 25948 Manual Wringer Operator 1/> Area 15 Min Each Region Completed 03/20/2023 01607 Therapy Proc 1/> Area 15Min Ea Completed 03/20/2023 38185 Therapy Proc, Neuromuscular Reeducation Of Movement Completed 03/18/2023 10367 Manual Wringer Operator 1/> Area 15 Min Each Region Completed 03/18/2023 76079 Therapy Proc, Neuromuscular Reeducation Of Movement Completed 03/18/2023 51761 Therapy Proc 1/> Area 15Min Ea Completed 03/15/2023 13995 Manual Wringer Operator 1/> Area 15 Min Each Region Completed 03/15/2023 03833 Therapy Proc, Neuromuscular Reeducation Of Movement Completed 03/15/2023 35583 Therapy Proc 1/> Area 15Min Ea Completed 03/13/2023 52475 Physical Therapy Evaluation Moderate Complexity Completed 03/13/2023 86965 Manual Wringer Operator 1/> Area 15 Min Each Region Completed 03/13/2023 62730 Therapy Proc 1/> Area 15Min Ea Completed 02/18/2023 35617 Venipuncture Routine Complet ed 11/27/2022 38999 Venipuncture Routine Complet ed Medical Devices Description No Information Available Encounters Type Date Location Provider Dx Diagnosis Office Visit 02/22/2023 10:30a Jonatan Almodovar DO I10 Essential (pr imary) hypertension 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 F41.1 Generalized anxiety disorder M15.0 Primary generalized (osteo)arthritis Assessments Date Code Description Provider 05/20/2023 R26.2 Difficulty in wa lking, not [...] DPT 03/18/2023 M25.511 Pain in right shoulder Ozeil Garcia, DPT 03/15/2023 R26.2 Difficulty in wa lking, not elsewhere classified Aki Garcia, DPT 03/15/2023 M25.511 Pain in right shoulder Oziel Garcia, DPT 03/13/2023 R26.2 Difficulty in wa lking, not elsewhere classified Aki Garcia, DPT 03/13/2023 M25.511 Pain in right shoulder Oziel Garcia, DPT 02/22/2023 I10 Essential (primary) hypertdania vickie Dawsno Almodovar, DO 02/22/2023 K21.9 Gastro-esophagea l reflux 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 Dawson Almodovar, DO 02/22/2023 F41.1 Generalized anxiety disorder Dawson Almodovar, DO 02/22/2023 M15.0 Primary generalized (osteo)a rthritis Dawson Almodovar, DO 02/18/2023 I10 Essential (primary) hyperten vickie Almodovar, DO 02/18/2023 I10 Essential (primary) hypertdania [facility] [place] 02/18/2023 E55.9 Vitamin D deficiency, unspec ified Dawson Almodovar, DO 02/18/2023 E55.9 Vitamin D deficiency, unspec ified [facility] - [place] 02/18/2023 E53.8 Deficiency of ot her specified B group vitamins Dawson Almodovar, DO 02/18/2023 E53.8 Deficiency of ot her specified B group vitamins [facility] [place] 11/27/2022 R60.0 Localized edema Dawson Garcia or, DO 11/27/2022 R60.0 Localized edema [facility] [place] 11/27/2022 I10 Essential (primary) hyperten vickie Dawson Almodovar, 11/27/2022 I10 Essential (primary) hyperten vickie [facility] [place] Plan of Treatment Future Appointment(s):* 09/06/2023 10:30 am - Dawson Almodovar DO at [place] * 08/28/2023 10:30 am - [facility] Functional Status Description No Information Available Mental Status Description No Information Available Referrals Description No Information Available"
--- OUTSIDE RECORDS SUMMARY | 2023-10-11 13:21 | External Medical Summary | Continuity of Care Document ---
Author Name AKI GARCIA DPT Address [address] [address] Phone [phone] Organization [facility], Address [address] [place] [address] Phone [phone] Problems Active Problems Provider Date Essential hypertension [...] SIG Qnty Indications Order ing Provider Date Agsbbbhtth38rr Tablets 2 tablets by mouth every day 30tabs R60.0 Fior Rodriguez MD, PhD 10/05/2022 Multi + [place]-3 Adult GummiesChewtabs 1 by mouth every day Dawson Almodovar DO 08/08/2022 Vitamin B ComplexTablets 1 by mouth every day Dawson Almodovar DO 08/08/2022 Losartan Potassium/Hydrochlorothi [id number] Tablets 1 by mouth every day 90tabs I10 Dawson Almodovar, DO 03/21/2020 Juice Plus Fibre` Dawson Almodovar, DO 02/19/2018 Aspirin Adult Low Fors37vv Tablets DR 1 by mouth every day Unknown Citalopram Bezfciwimula15nv Tablets 1 by mouth every day 90tabs F41.1 Dawson Almodovar, DO Vitamin D3 Maximum [id number] (5000 Ut) Capsules 1 by mouth once daily Unknown Immunizations CPT Code Status Date Vaccine Lot # [id number] Given 07/14/2009 Pneumococcal Vaccine/Pneu movax 23 [id number] Refused 10/19/2022 Shingrix 74668 Refused 08/08/2022 Pneumococcal Conjugate-Pr evnar 20 [id number] Refused 08/08/2022 Influenza Vac, Split, Preservative Free High Dose Age 65 & > 78537 Refused 04/20/2022 Moderna Sars-Co v-2 (Cov-19) vacc,100 mcg/ 0.5 mL 12Y+EMR Doc Only 57510 Refused 10/16/2021 Influenza Virus Vaccine, Quadrivalent (Cciiv4), Derived From Cell 81766 Refused 10/16/2021 Shingrix 91581 Refused 10/16/2021 Pneumococcal Conjugate-Pr evnar 13 42045 Refused 03/20/2021 Pfizer Sars-Cov -2 (Cov-19) vacc 30mcg/0.3ML 12Y+ EMR Doc Only 21553 Refused 04/17/2019 Influenza Vacci ne, Inactivated, Subunit, Adjuvanted, For Intrmusc 61023 Refused 01/29/2019 Tdap (Tetanus, diphtheria & acel. pertussis) Adacel or Boostrix 92237 Refused 01/29/2019 Pneumococcal Conjugate-Pr evnar 13 Vital [...] W/Diff 02/18/2023 [facility] [address] [place] [address] [phone] WBC 7.6 10^3/M3 3.1-9.2 RBC 4.19 10^6/M3 3.70-5.50 HGB 12.2 GR/DL 11.5-16.1 HCT 36.6 % 34.5-47.8 MCV 87.5 CUMICR 82.6-95.8 MCH 29.1 PICOGR 27.9-32.9 MCHC 33.3 % 32.6-35.4 RDW 14.9 % High 11.4-14.6 PLT 225 10^3/M3 140-350 MPV 8.8 CUMICR 7.0-10.6 %Neut 57.1 % 40.0-75.0 %Lymph 29.4 % 17.0-45.0 %Cache 8.6 % 1.0-11.0 %Eos 3.8 % 0.0-6.0 %Baso 1.1 % 0.0-2.0 #Neut 4.4 10^3/M3 1.5-8.0 #Lymph 2.2 10^3/M3 0.8-3.2 #Cache 0.7 10^3/M3 0.0-0.8 #Eos 0.3 10^3/m3 0.0-0.4 #Baso 0.1 10^3/m3 0.0-0.2 Comp. Met 02/18/2023 [facility] [address] [place] [address] [phone] Glucose 96 mg/dL 70-110 BUN 18 mg/dL [...] Lipid 02/18/2023 [facility] [address] [place] [address] [phone] Cholesterol 164 mg/dL 0-200 1 Triglyceride 79 mg/dL 0-150 2 HDLD 62 mg/dL See Comment 3 Measured LDL 99 mg/dL 0-130 4 Calc VLDL 15.8 mg/dL See Comment 5 Chol/HDL 2.6 RATIO See Comment 6 Non-HDL 102 mg/dL See Comment 7 Laboratory test finding 02/18/2023 [facility] [address] [place] [address] [phone] Vitd-25Oh 77 ng/mL 30-100 VB12 411 pg/mL [...] Target Procedures Date Code Description Status 05/22/2023 47183 Manual Skating Rink Manager 1/> Area 15 Min Each Region Completed 05/22/2023 66724 Therapy Proc, Neuromuscular Reeducation Of Movement Completed 05/22/2023 99964 Therapy Proc 1/> Area 15Min Ea Completed 05/22/2023 61385 Hot/Cold Pack Completed 05/22/2023 89784 Therapeutic Activities Direc t, Each 15 Minutes Completed 05/20/2023 63475 Therapeutic Activities Direc t, Each 15 Minutes Completed 05/20/2023 10557 Manual Skating Rink Manager 1/> Area 15 Min Each Region Completed 05/20/2023 91202 Therapy Proc, Neuromuscular Reeducation Of Movement Completed 05/20/2023 94844 Therapy Proc 1/> Area 15Min Ea Completed 05/20/2023 75780 Hot/Cold Pack Completed 05/17/2023 36243 Therapy Proc 1/> Area 15Min Ea Completed 05/17/2023 70617 Hot/Cold Pack Completed 05/17/2023 72757 Therapy Proc, Neuromuscular Reeducation Of Movement Completed 05/17/2023 84480 Manual Skating Rink Manager 1/> Area 15 Min Each Region Completed 05/17/2023 25155 Therapeutic Activities Direc t, Each 15 Minutes Completed 05/15/2023 18821 Therapeutic Activities Direc t, Each 15 Minutes Completed 05/15/2023 46970 Manual Skating Rink Manager 1/> Area 15 Min Each Region Completed 05/15/2023 48998 Therapy Proc, Neuromuscular Reeducation Of Movement Completed 05/15/2023 65192 Therapy Proc 1/> Area 15Min Ea Completed 05/15/2023 32439 Hot/Cold Pack Completed 2023 70617 Therapeutic Activities Direc t, Each 15 Minutes Completed 2023 97191 Manual Skating Rink Manager 1/> Area 15 Min Each Region Completed 2023 79693 Therapy Proc, Neuromuscular Reeducation Of Movement Completed 2023 95086 Therapy Proc 1/> Area 15Min Ea Completed 2023 01661 Hot/Cold Pack Completed 05/10/2023 38929 Therapy Proc 1/> Area 15Min Ea Completed 05/10/2023 65456 Hot/Cold Pack Completed 05/10/2023 46957 Therapy Proc, Neuromuscular Reeducation Of Movement Completed 05/10/2023 83793 Therapeutic Activities Direc t, Each 15 Minutes Completed 05/10/2023 02179 Manual Skating Rink Manager 1/> Area 15 Min Each Region Completed 05/08/2023 80460 Therapeutic Activities Direc t, Each 15 Minutes Completed 05/08/2023 42770 Manual Skating Rink Manager 1/> Area 15 Min Each Region Completed 05/08/2023 94562 Therapy Proc, Neuromuscular Reeducation Of Movement Completed 05/08/2023 26429 Therapy Proc 1/> Area 15Min Ea Completed 05/08/2023 85751 Hot/Cold Pack Completed 05/06/2023 11211 Therapeutic Activities Direc t, Each 15 Minutes Completed 05/06/2023 45082 Manual Skating Rink Manager 1/> Area 15 Min Each Region Completed 05/06/2023 62153 Therapy Proc, Neuromuscular Reeducation Of Movement Completed 05/06/2023 59363 Therapy Proc 1/> Area 15Min Ea Completed 05/06/2023 07909 Hot/Cold Pack Completed 05/02/2023 41542 Therapy Proc, Neuromuscular Reeducation Of Movement Completed 05/02/2023 42264 Therapy Proc 1/> Area 15Min Ea Completed 05/02/2023 80631 Manual Skating Rink Manager 1/> Area 15 Min Each Region Completed 05/02/2023 98117 Therapeutic Activities Direc t, Each 15 Minutes Completed 04/30/2023 98867 Manual Skating Rink Manager 1/> Area 15 Min Each Region Completed 04/30/2023 35687 Therapy Proc, Neuromuscular Reeducation Of Movement Completed 04/30/2023 73325 Therapy Proc 1/> Area 15Min Ea Completed 04/30/2023 92499 Hot/Cold Pack Completed 04/24/2023 80228 Manual Skating Rink Manager 1/> Area 15 Min Each Region Completed 04/24/2023 89299 Therapy Proc, Neuromuscular Reeducation Of Movement Completed 04/24/2023 77481 Therapy Proc 1/> Area 15Min Ea Completed 04/22/2023 32682 Manual Skating Rink Manager 1/> Area 15 Min Each Region Completed 04/22/2023 45266 Therapy Proc, Neuromuscular Reeducation Of Movement Completed 04/22/2023 87828 Therapy Proc 1/> Area 15Min Ea Completed 04/22/2023 44401 Hot/Cold Pack Completed 04/19/2023 74624 Hot/Cold Pack Completed 04/19/2023 99337 Manual Skating Rink Manager 1/> Area 15 Min Each Region Completed 04/19/2023 68297 Therapy Proc, Neuromuscular Reeducation Of Movement Completed 04/19/2023 34607 Therapy Proc 1/> Area 15Min Ea Completed 04/18/2023 49344 Therapy Proc, Neuromuscular Reeducation Of Movement Completed 04/18/2023 95139 Therapy Proc 1/> Area 15Min Ea Completed 04/18/2023 14418 Manual Skating Rink Manager 1/> Area 15 Min Each Region Completed 04/15/2023 49694 Manual Skating Rink Manager 1/> Area 15 Min Each Region Completed 04/15/2023 65963 Therapy Proc, Neuromuscular Reeducation Of Movement Completed 04/15/2023 80864 Therapy Proc 1/> Area 15Min Ea Completed 04/15/2023 99320 Hot/Cold Pack Completed 04/12/2023 10171 Manual Skating Rink Manager 1/> Area 15 Min Each Region Completed 04/12/2023 88210 Therapy Proc, Neuromuscular Reeducation Of Movement Completed 04/12/2023 55938 Therapy Proc 1/> Area 15Min Ea Completed 04/12/2023 33901 Hot/Cold Pack Completed 04/10/2023 90339 Therapy Proc, Neuromuscular Reeducation Of Movement Completed 04/10/2023 24776 Therapy Proc 1/> Area 15Min Ea Completed 04/10/2023 13991 Manual Skating Rink Manager 1/> Area 15 Min Each Region Completed 04/08/2023 26526 Manual Skating Rink Manager 1/> Area 15 Min Each Region Completed 04/08/2023 95741 Therapy Proc, Neuromuscular Reeducation Of Movement Completed 04/08/2023 71736 Therapy Proc 1/> Area 15Min Ea Completed 04/05/2023 06664 Manual Skating Rink Manager 1/> Area 15 Min Each Region Completed 04/05/2023 35701 Therapy Proc, Neuromuscular Reeducation Of Movement Completed 04/05/2023 16264 Therapy Proc 1/> Area 15Min Ea Completed 04/03/2023 44580 Manual Skating Rink Manager 1/> Area 15 Min Each Region Completed 04/03/2023 85105 Therapy Proc, Neuromuscular Reeducation Of Movement Completed 04/03/2023 29406 Therapy Proc 1/> Area 15Min Ea Completed 04/01/2023 63849 Therapy Proc 1/> Area 15Min Ea Completed 04/01/2023 49579 Therapy Proc, Neuromuscular Reeducation Of Movement Completed 04/01/2023 37539 Manual Skating Rink Manager 1/> Area 15 Min Each Region Completed 03/29/2023 74531 Manual Skating Rink Manager 1/> Area 15 Min Each Region Completed 03/29/2023 99935 Therapy Proc, Neuromuscular Reeducation Of Movement Completed 03/29/2023 52294 Therapy Proc 1/> Area 15Min Ea Completed 03/27/2023 46190 Manual Skating Rink Manager 1/> Area 15 Min Each Region Completed 03/27/2023 44336 Therapy Proc, Neuromuscular Reeducation Of Movement Completed 03/27/2023 39842 Therapy Proc 1/> Area 15Min Ea Completed 03/25/2023 55649 Manual Skating Rink Manager 1/> Area 15 Min Each Region Completed 03/25/2023 11348 Therapy Proc, Neuromuscular Reeducation Of Movement Completed 03/25/2023 24852 Therapy Proc 1/> Area 15Min Ea Completed 03/22/2023 61979 Manual Skating Rink Manager 1/> Area 15 Min Each Region Completed 03/22/2023 84427 Therapy Proc, Neuromuscular Reeducation Of Movement Completed 03/22/2023 10901 Therapy Proc 1/> Area 15Min Ea Completed 03/20/2023 86133 Manual Skating Rink Manager 1/> Area 15 Min Each Region Completed 03/20/2023 24487 Therapy Proc 1/> Area 15Min Ea Completed 03/20/2023 95444 Therapy Proc, Neuromuscular Reeducation Of Movement Completed 03/18/2023 03458 Manual Skating Rink Manager 1/> Area 15 Min Each Region Completed 03/18/2023 19581 Therapy Proc, Neuromuscular Reeducation Of Movement Completed 03/18/2023 05748 Therapy Proc 1/> Area 15Min Ea Completed 03/15/2023 36922 Manual Skating Rink Manager 1/> Area 15 Min Each Region Completed 03/15/2023 97228 Therapy Proc, Neuromuscular Reeducation Of Movement Completed 03/15/2023 46301 Therapy Proc 1/> Area 15Min Ea Completed 03/13/2023 78292 Physical Therapy Evaluation Moderate Complexity Completed 03/13/2023 37161 Manual Skating Rink Manager 1/> Area 15 Min Each Region Completed 03/13/2023 98514 Therapy Proc 1/> Area 15Min Ea Completed 02/18/2023 04696 Venipuncture Routine Complet ed Medical Devices Description [...] 05/22/2023 M25.511 Pain in right shoulder Oziel Garcia DPT 05/20/2023 R26.2 Difficulty in wa lking, [...] 04/19/2023 M25.511 Pain in right shoulder Oziel Gacria, DPT 04/18/2023 R26.2 Difficulty in wa lking, [...] DPT 02/22/2023 I10 Essential (primary) hypertdania vickie Dawson Almodovar, DO 02/22/2023 K21.9 Gastro-esophagea l reflux 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 Dawson Almodovar, DO 02/22/2023 F41.1 Generalized anxiety disorder Dawson Almodovar, DO 02/22/2023 M15.0 Primary generalized (osteo)a rthritis Dawson Almodovar, DO 02/18/2023 I10 Essential (primary) hyperten vickie Almodovar, DO 02/18/2023 I10 Essential (primary) hypertdania [facility] 02/18/2023 E55.9 Vitamin D deficiency, unspec ified Dawson Almodovar, DO 02/18/2023 E55.9 Vitamin D deficiency, unspec ified [facility] [place] 02/18/2023 E53.8 Deficiency of ot her specified B group vitamins Dawson Almodovar, DO 02/18/2023 E53.8 Deficiency of ot her specified B group vitamins [facility] [place] Plan of Treatment Future Appointment(s):* 09/06/2023 10:30 am - Dawson Almodovar DO at [facility] * 08/28/2023 10:30 am - [facility] Functional Status Description No Information Available Mental Status Description No Information Available Referrals Description No Information Available"
--- OUTSIDE RECORDS SUMMARY | 2023-10-11 13:22 | External Medical Summary | Continuity of Care Document ---
Author Name AKI GARCIA DPT Address [address] [address] Phone [phone] Organization [facility], Address [address] [place] [address] Phone [phone] Problems Active Problems Provider Date Essential hypertension [...] SIG Qnty Indications Order ing Provider Date Kxmvstyovw66qa Tablets 2 tablets by mouth every day 30tabs R60.0 Fior Rodriguez MD, PhD 10/05/2022 Multi + [place]-3 Adult GummiesChewtabs 1 by mouth every day Dawson Almodovar DO 08/08/2022 Vitamin B ComplexTablets 1 by mouth every day Dawson Almodovar DO 08/08/2022 Losartan Potassium/Hydrochlorothi vvluu090-38zj Tablets 1 by mouth every day 90tabs I10 Dawson Almodovar, DO 03/21/2020 Juice Plus Fibre` Dawson Almodovar, DO 02/19/2018 Aspirin Adult Low Erkg61zn Tablets DR 1 by mouth every day Unknown Citalopram Igracxpnrxyg21js Tablets 1 by mouth every day 90tabs F41.1 Dawson Almodovar, DO Vitamin D3 Maximum Qqffzssr245hbn (5000 Ut) Capsules 1 by mouth once daily Unknown Immunizations CPT Code Status Date Vaccine Lot # [id number] Given 07/14/2009 Pneumococcal Vaccine/Pneu movax 23 89058 Refused 10/19/2022 Shingrix 45011 Refused 08/08/2022 Pneumococcal Conjugate-Pr evnar 20 95933 Refused 08/08/2022 Influenza Vac, Split, Preservative Free High Dose Age 65 & > 47343 Refused 04/20/2022 Moderna Sars-Co v-2 (Cov-19) vacc,100 mcg/ 0.5 mL 12Y+EMR Doc Only 48676 Refused 10/16/2021 Influenza Virus Vaccine, Quadrivalent (Cciiv4), Derived From Cell 40202 Refused 10/16/2021 Shingrix 52450 Refused 10/16/2021 Pneumococcal Conjugate-Pr evnar 13 97470 Refused 03/20/2021 Pfizer Sars-Cov -2 (Cov-19) vacc 30mcg/0.3ML 12Y+ EMR Doc Only 96373 Refused 04/17/2019 Influenza Vacci ne, Inactivated, Subunit, Adjuvanted, For Intrmusc 22313 Refused 01/29/2019 Tdap (Tetanus, diphtheria & acel. pertussis) Adacel or Boostrix 81540 Refused 01/29/2019 Pneumococcal Conjugate-Pr evnar 13 Vital [...] H/L Range N ote CBC W/Diff 02/18/2023 [facility]. [address] [place] [address] [phone] WBC 7.6 10^3/M3 3.1-9.2 RBC 4.19 10^6/M3 3.70-5.50 HGB 12.2 GR/DL 11.5-16.1 HCT 36.6 % 34.5-47.8 MCV 87.5 CUMICR 82.6-95.8 MCH 29.1 PICOGR 27.9-32.9 MCHC 33.3 % 32.6-35.4 RDW 14.9 % High 11.4-14.6 PLT 225 10^3/M3 140-350 MPV 8.8 CUMICR 7.0-10.6 %Neut 57.1 % 40.0-75.0 %Lymph 29.4 % 17.0-45.0 %[place] 8.6 % 1.0-11.0 %Eos 3.8 % 0.0-6.0 %Baso 1.1 % 0.0-2.0 #Neut 4.4 10^3/M3 1.5-8.0 #Lymph 2.2 10^3/M3 0.8-3.2 #[place] 0.7 10^3/M3 0.0-0.8 #Eos 0.3 10^3/m3 0.0-0.4 #Baso 0.1 10^3/m3 0.0-0.2 Comp. Met 02/18/2023 [facility]. [address] [place] [address] [phone] Glucose 96 mg/dL 70-110 BUN 18 mg/dL [...] 2.0-3.4 GFR 72 ML/MIN/1.73SQM >60 Lipid 02/18/2023 [facility]. [address] [place] [address] [phone] Cholesterol 164 mg/dL 0-200 1 Triglyceride 79 mg/dL 0-150 2 HDLD 62 mg/dL See Comment 3 Measured LDL 99 mg/dL 0-130 4 Calc VLDL 15.8 mg/dL See Comment 5 Chol/HDL 2.6 RATIO See Comment 6 Non-HDL 102 mg/dL See Comment 7 Laboratory test finding 02/18/2023 [facility]. [address] [place] [address] [phone] Vitd-25Oh 77 ng/mL 30-100 VB12 411 pg/mL 230-1050 BMP 11/27/2022 [facility]. [address] [place], [place] [id number] [phone] Glucose 95 mg/dL 70-110 BUN 14 mg/dL 6-25 Creatinine 0.8 mg/dL 0.5-1.2 Sodium 136 mEq/L 135-145 Potassium 4.0 mEq/L 3.5-5.0 Chloride 97 mEq/L 95-107 Co-2 29 mEq/L 24-31 Calcium 9.8 mg/dL 8.5-10.6 GFR 72 >60 BMP 11/15/2022 [facility]. [address] [place], [place] [id number] [phone] Glucose 118 mg/dL High 70-110 BUN 14 mg/dL 6-25 Creatinine 0.9 mg/dL 0.5-1.2 Sodium 134 mEq/L Low 135-145 Potassium 3.7 mEq/L 3.5-5.0 Chloride 96 mEq/L 95-107 Co-2 27 mEq/L 24-31 Calcium 10.1 mg/dL 8.5-10.6 GFR 63 >60 1 CHOLESTEROL Less than 200mg/dl Low [...] LDL Target Procedures Date Code Description Status 05/10/2023 18148 Manual Chip Mixer 1/> Area 15 Min Each Region Completed 05/10/2023 35873 Therapeutic Activities Direc t, Each 15 Minutes Completed 05/10/2023 32305 Hot/Cold Pack Completed 05/10/2023 51865 Therapy Proc, Neuromuscular Reeducation Of Movement Completed 05/10/2023 22707 Therapy Proc 1/> Area 15Min Ea Completed 05/08/2023 00984 Therapeutic Activities Direc t, Each 15 Minutes Completed 05/08/2023 95406 Manual Chip Mixer 1/> Area 15 Min Each Region Completed 05/08/2023 20771 Therapy Proc, Neuromuscular Reeducation Of Movement Completed 05/08/2023 57839 Therapy Proc 1/> Area 15Min Ea Completed 05/08/2023 39273 Hot/Cold Pack Completed 05/06/2023 57391 Hot/Cold Pack Completed 05/06/2023 43299 Therapy Proc 1/> Area 15Min Ea Completed 05/06/2023 85543 Therapy Proc, Neuromuscular Reeducation Of Movement Completed 05/06/2023 64003 Manual Chip Mixer 1/> Area 15 Min Each Region Completed 05/06/2023 96861 Therapeutic Activities Direc t, Each 15 Minutes Completed 05/02/2023 65388 Therapeutic Activities Direc t, Each 15 Minutes Completed 05/02/2023 55882 Manual Chip Mixer 1/> Area 15 Min Each Region Completed 05/02/2023 28650 Therapy Proc, Neuromuscular Reeducation Of Movement Completed 05/02/2023 40102 Therapy Proc 1/> Area 15Min Ea Completed 04/30/2023 65060 Manual Chip Mixer 1/> Area 15 Min Each Region Completed 04/30/2023 10074 Therapy Proc, Neuromuscular Reeducation Of Movement Completed 04/30/2023 69772 Therapy Proc 1/> Area 15Min Ea Completed 04/30/2023 38540 Hot/Cold Pack Completed 04/24/2023 85396 Manual Chip Mixer 1/> Area 15 Min Each Region Completed 04/24/2023 13375 Therapy Proc 1/> Area 15Min Ea Completed 04/24/2023 33829 Therapy Proc, Neuromuscular Reeducation Of Movement Completed 04/22/2023 64834 Manual Chip Mixer 1/> Area 15 Min Each Region Completed 04/22/2023 77260 Therapy Proc, Neuromuscular Reeducation Of Movement Completed 04/22/2023 13348 Therapy Proc 1/> Area 15Min Ea Completed 04/22/2023 85036 Hot/Cold Pack Completed 04/19/2023 89742 Manual Chip Mixer 1/> Area 15 Min Each Region Completed 04/19/2023 06583 Therapy Proc, Neuromuscular Reeducation Of Movement Completed 04/19/2023 98135 Therapy Proc 1/> Area 15Min Ea Completed 04/19/2023 79828 Hot/Cold Pack Completed 04/18/2023 28074 Manual Chip Mixer 1/> Area 15 Min Each Region Completed 04/18/2023 50423 Therapy Proc 1/> Area 15Min Ea Completed 04/18/2023 78975 Therapy Proc, Neuromuscular Reeducation Of Movement Completed 04/15/2023 62342 Manual Chip Mixer 1/> Area 15 Min Each Region Completed 04/15/2023 02394 Therapy Proc, Neuromuscular Reeducation Of Movement Completed 04/15/2023 77670 Therapy Proc 1/> Area 15Min Ea Completed 04/15/2023 31398 Hot/Cold Pack Completed 04/12/2023 94232 Hot/Cold Pack Completed 04/12/2023 18704 Therapy Proc 1/> Area 15Min Ea Completed 04/12/2023 33128 Manual Chip Mixer 1/> Area 15 Min Each Region Completed 04/12/2023 06969 Therapy Proc, Neuromuscular Reeducation Of Movement Completed 04/10/2023 05035 Therapy Proc, Neuromuscular Reeducation Of Movement Completed 04/10/2023 86449 Therapy Proc 1/> Area 15Min Ea Completed 04/10/2023 15622 Manual Chip Mixer 1/> Area 15 Min Each Region Completed 04/08/2023 95740 Manual Chip Mixer 1/> Area 15 Min Each Region Completed 04/08/2023 84740 Therapy Proc, Neuromuscular Reeducation Of Movement Completed 04/08/2023 52491 Therapy Proc 1/> Area 15Min Ea Completed 04/05/2023 50016 Manual Chip Mixer 1/> Area 15 Min Each Region Completed 04/05/2023 71575 Therapy Proc, Neuromuscular Reeducation Of Movement Completed 04/05/2023 95398 Therapy Proc 1/> Area 15Min Ea Completed 04/03/2023 07559 Manual Chip Mixer 1/> Area 15 Min Each Region Completed 04/03/2023 62695 Therapy Proc 1/> Area 15Min Ea Completed 04/03/2023 26452 Therapy Proc, Neuromuscular Reeducation Of Movement Completed 04/01/2023 80044 Manual Chip Mixer 1/> Area 15 Min Each Region Completed 04/01/2023 06990 Therapy Proc, Neuromuscular Reeducation Of Movement Completed 04/01/2023 74653 Therapy Proc 1/> Area 15Min Ea Completed 03/29/2023 07224 Manual Chip Mixer 1/> Area 15 Min Each Region Completed 03/29/2023 43033 Therapy Proc, Neuromuscular Reeducation Of Movement Completed 03/29/2023 70571 Therapy Proc 1/> Area 15Min Ea Completed 03/27/2023 79140 Therapy Proc 1/> Area 15Min Ea Completed 03/27/2023 40167 Manual Chip Mixer 1/> Area 15 Min Each Region Completed 03/27/2023 28249 Therapy Proc, Neuromuscular Reeducation Of Movement Completed 03/25/2023 46056 Manual Chip Mixer 1/> Area 15 Min Each Region Completed 03/25/2023 75631 Therapy Proc, Neuromuscular Reeducation Of Movement Completed 03/25/2023 32414 Therapy Proc 1/> Area 15Min Ea Completed 03/22/2023 92738 Manual Chip Mixer 1/> Area 15 Min Each Region Completed 03/22/2023 77563 Therapy Proc, Neuromuscular Reeducation Of Movement Completed 03/22/2023 89594 Therapy Proc 1/> Area 15Min Ea Completed 03/20/2023 86705 Manual Chip Mixer 1/> Area 15 Min Each Region Completed 03/20/2023 72400 Therapy Proc, Neuromuscular Reeducation Of Movement Completed 03/20/2023 40913 Therapy Proc 1/> Area 15Min Ea Completed 03/18/2023 07074 Manual Chip Mixer 1/> Area 15 Min Each Region Completed 03/18/2023 89037 Therapy Proc 1/> Area 15Min Ea Completed 03/18/2023 70426 Therapy Proc, Neuromuscular Reeducation Of Movement Completed 03/15/2023 43327 Manual Chip Mixer 1/> Area 15 Min Each Region Completed 03/15/2023 57416 Therapy Proc, Neuromuscular Reeducation Of Movement Completed 03/15/2023 54014 Therapy Proc 1/> Area 15Min Ea Completed 03/13/2023 76399 Physical Therapy Evaluation Moderate Complexity Completed 03/13/2023 80336 Manual Chip Mixer 1/> Area 15 Min Each Region Completed 03/13/2023 93993 Therapy Proc 1/> Area 15Min Ea Completed 02/18/2023 88821 Venipuncture Routine Complet ed 11/27/2022 81156 Venipuncture Routine Complet ed 11/15/2022 80194 Venipuncture Routine Complet ed Medical Devices Description No Information Available Encounters Type Date Location Provider Dx Diagnosis Office Visit 02/22/2023 10[facility], I10 Essential (pr imary) hypertension 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 F41.1 Generalized anxiety disorder M15.0 Primary generalized (osteo)arthritis Assessments Date Code Description Provider 05/10/2023 R26.2 Difficulty in wa [place]king, not elsewhere classified Aki Garcia, NOE 05/10/2023 M25.511 Pain in right shoulder Oziel Garcia, DPT 05/08/2023 R26.2 Difficulty in wa lking, not elsewhere classified Aki Garcia DPT 05/08/2023 M25.511 Pain in right shoulder Oziel Garcia, DPT 05/06/2023 R26.2 Difficulty in wa [place]king, not elsewhere classified Aki Garcia DPT 05/06/2023 M25.511 Pain in right shoulder Oziel Garcia, DPT 05/02/2023 R26.2 Difficulty in wa lking, not elsewhere classified Aki Garcia DPT 05/02/2023 M25.511 Pain in right shoulder Oziel Garcia, DPT 04/30/2023 R26.2 Difficulty in wa lking, not elsewhere classified Aki Garcia DPT 04/30/2023 M25.511 Pain in right shoulder Oziel Garcia, DPT 04/26/2023 R26.2 Difficulty in wa lking, not elsewhere classified Aki Garcia DPT 04/26/2023 M25.511 Pain in right shoulder [...] 03/22/2023 M25.511 Pain in right shoulder Oziel aGrcia, DPT 03/20/2023 R26.2 Difficulty in wa lking, [...] I10 Essential (primary) hyperten vickie [facility] - [place] 02/18/2023 E55.9 Vitamin D deficiency, unspec ified Dawson Almodovar, DO 02/18/2023 E55.9 Vitamin D deficiency, unspec ified Lab - [place] 02/18/2023 E53.8 Deficiency of ot her specified B group vitamins Dawson Almodovar, DO 02/18/2023 E53.8 Deficiency of ot her specified B group vitamins Lab - [place] 11/27/2022 R60.0 Localized edema Dawson A. Tayl or, DO 11/27/2022 R60.0 Localized edema Lab - [place] 11/27/2022 I10 Essential (primary) augustindania johnston Dawson Almodovar, DO 11/27/2022 I10 Essential (primary) hypertdania johnston [facility] - [place] 11/15/2022 R60.0 Localized edema Dawson A. Tayl or, DO 11/15/2022 R60.0 Localized edema Lab - [place] 11/15/2022 I10 Essential (primary) hypertdania johnston Dawson Almodovar, DO 11/15/2022 I10 Essential (primary) hypertdania johnston [facility] - [place] Plan of Treatment Future Appointment(s):* 09/06/2023 10:30 am - Dawson Almodovar DO at [place] * 08/28/2023 10:30 am - [facility] [place] [facility] [place] Functional Status Description No Information Available Mental Status Description No Information Available Referrals Description No Information Available"
--- OUTSIDE RECORDS SUMMARY | 2023-10-11 13:22 | External Medical Summary | Continuity of Care Document ---
Author Name AKI GARCIA DPT Address [address] [address] Phone [phone] Organization [facility], Address [address] [place] [address] Phone [phone] Problems Active Problems Provider Date Essential hypertension [...] SIG Qnty Indications Order ing Provider Date Sxotadkfmc81px Tablets 2 tablets by mouth every day 30tabs R60.0 Fior Rodriguez MD, PhD 10/05/2022 Multi + [place]-3 Adult GummiesChewtabs 1 by mouth every day Dawson Almodovar DO 08/08/2022 Vitamin B ComplexTablets 1 by mouth every day Dawson Almodovar DO 08/08/2022 Losartan Potassium/Hydrochlorothi knopn062-61sd Tablets 1 by mouth every day 90tabs I10 Dawson Almodovar, DO 03/21/2020 Juice Plus Fibre` Dawson Almodovar, DO 02/19/2018 Aspirin Adult Low Uyjz27ln Tablets DR 1 by mouth every day Unknown Citalopram Pytyvvyeuagp25mh Tablets 1 by mouth every day 90tabs F41.1 Dawson Almodovar, DO Vitamin D3 Maximum Psbpelik252aap (5000 Ut) Capsules 1 by mouth once daily Unknown Immunizations CPT Code Status Date Vaccine Lot # [id number] Given 07/14/2009 Pneumococcal Vaccine/Pneu movax 23 07620 Refused 10/19/2022 Shingrix 60551 Refused 08/08/2022 Pneumococcal Conjugate-Pr evnar 20 11631 Refused 08/08/2022 Influenza Vac, Split, Preservative Free High Dose Age 65 & > 39[address] Refused 04/20/2022 Moderna Sars-Co v-2 (Cov-19) vacc,100 mcg/ 0.5 mL 12Y+EMR Doc Only 09524 Refused 10/16/2021 Influenza Virus Vaccine, Quadrivalent (Cciiv4), Derived From Cell 34930 Refused 10/16/2021 Shingrix 69159 Refused 10/16/2021 Pneumococcal Conjugate-Pr evnar 13 64554 Refused 03/20/2021 Pfizer Sars-Cov -2 (Cov-19) vacc 30mcg/0.3ML 12Y+ EMR Doc Only 47140 Refused 04/17/2019 Influenza Vacci ne, Inactivated, Subunit, Adjuvanted, For Intrmusc 46112 Refused 01/29/2019 Tdap (Tetanus, diphtheria & acel. pertussis) Adacel or Boostrix 02606 Refused 01/29/2019 Pneumococcal Conjugate-Pr evnar 13 Vital [...] W/Diff 02/18/2023 [facility]. [address] [place] [address] [phone] WBC 7.6 10^3/M3 3.1-9.2 RBC 4.19 10^6/M3 3.70-5.50 HGB 12.2 GR/DL 11.5-16.1 HCT 36.6 % 34.5-47.8 MCV 87.5 CUMICR 82.6-95.8 MCH 29.1 PICOGR 27.9-32.9 MCHC 33.3 % 32.6-35.4 RDW 14.9 % High 11.4-14.6 PLT 225 10^3/M3 140-350 MPV 8.8 CUMICR 7.0-10.6 %Neut 57.1 % 40.0-75.0 %Lymph 29.4 % 17.0-45.0 %[place] 8.6 % 1.0-11.0 %Eos 3.8 % 0.0-6.0 %Baso 1.1 % 0.0-2.0 #Neut 4.4 10^3/M3 1.5-8.0 #Lymph 2.2 10^3/M3 0.8-3.2 #[place] 0.7 10^3/M3 0.0-0.8 #Eos 0.3 10^3/m3 0.0-0.4 #Baso 0.1 10^3/m3 0.0-0.2 Comp. Met 02/18/2023 [facility]. [address] [place] [address] [phone] Glucose 96 mg/dL 70-110 BUN 18 mg/dL [...] Lipid 02/18/2023 [facility]. [address] [place] [address] [phone] Cholesterol 164 mg/dL 0-200 1 Triglyceride 79 mg/dL 0-150 2 HDLD 62 mg/dL See Comment 3 Measured LDL 99 mg/dL 0-130 4 Calc VLDL 15.8 mg/dL See Comment 5 Chol/HDL 2.6 RATIO See Comment 6 Non-HDL 102 mg/dL See Comment 7 Laboratory test finding 02/18/2023 [facility]. [address] [place] [address] [phone] Vitd-25Oh 77 ng/mL 30-100 VB12 411 pg/mL 230-1050 BMP 11/27/2022 [facility]. [address] [place] [address] [phone] Glucose 95 mg/dL 70-110 BUN 14 mg/dL [...] LDL Target Procedures Date Code Description Status 05/15/2023 19124 Manual Broadband Technician 1/> Area 15 Min Each Region Completed 05/15/2023 34302 Therapeutic Activities Direc t, Each 15 Minutes Completed 05/15/2023 69129 Hot/Cold Pack Completed 05/15/2023 89560 Therapy Proc, Neuromuscular Reeducation Of Movement Completed 05/15/2023 47695 Therapy Proc 1/> Area 15Min Ea Completed 2023 08348 Manual Broadband Technician 1/> Area 15 Min Each Region Completed 2023 15206 Therapy Proc, Neuromuscular Reeducation Of Movement Completed 2023 52013 Therapy Proc 1/> Area 15Min Ea Completed 2023 52842 Hot/Cold Pack Completed 2023 83130 Therapeutic Activities Direc t, Each 15 Minutes Completed 05/10/2023 82179 Therapeutic Activities Direc t, Each 15 Minutes Completed 05/10/2023 49501 Manual Broadband Technician 1/> Area 15 Min Each Region Completed 05/10/2023 53409 Therapy Proc, Neuromuscular Reeducation Of Movement Completed 05/10/2023 49498 Therapy Proc 1/> Area 15Min Ea Completed 05/10/2023 35173 Hot/Cold Pack Completed 05/08/2023 48938 Manual Broadband Technician 1/> Area 15 Min Each Region Completed 05/08/2023 57175 Hot/Cold Pack Completed 05/08/2023 73503 Therapy Proc 1/> Area 15Min Ea Completed 05/08/2023 84734 Therapy Proc, Neuromuscular Reeducation Of Movement Completed 05/08/2023 98732 Therapeutic Activities Direc t, Each 15 Minutes Completed 05/06/2023 11365 Therapeutic Activities Direc t, Each 15 Minutes Completed 05/06/2023 80913 Manual Broadband Technician 1/> Area 15 Min Each Region Completed 05/06/2023 68365 Therapy Proc, Neuromuscular Reeducation Of Movement Completed 05/06/2023 80988 Therapy Proc 1/> Area 15Min Ea Completed 05/06/2023 70459 Hot/Cold Pack Completed 05/02/2023 65203 Therapy Proc 1/> Area 15Min Ea Completed 05/02/2023 80578 Manual Broadband Technician 1/> Area 15 Min Each Region Completed 05/02/2023 02690 Therapeutic Activities Direc t, Each 15 Minutes Completed 05/02/2023 90144 Therapy Proc, Neuromuscular Reeducation Of Movement Completed 04/30/2023 85573 Manual Broadband Technician 1/> Area 15 Min Each Region Completed 04/30/2023 69572 Therapy Proc, Neuromuscular Reeducation Of Movement Completed 04/30/2023 69910 Therapy Proc 1/> Area 15Min Ea Completed 04/30/2023 18473 Hot/Cold Pack Completed 04/24/2023 60417 Manual Broadband Technician 1/> Area 15 Min Each Region Completed 04/24/2023 23036 Therapy Proc, Neuromuscular Reeducation Of Movement Completed 04/24/2023 14936 Therapy Proc 1/> Area 15Min Ea Completed 04/22/2023 60311 Therapy Proc 1/> Area 15Min Ea Completed 04/22/2023 37786 Hot/Cold Pack Completed 04/22/2023 48092 Therapy Proc, Neuromuscular Reeducation Of Movement Completed 04/22/2023 53689 Manual Broadband Technician 1/> Area 15 Min Each Region Completed 04/19/2023 87536 Manual Broadband Technician 1/> Area 15 Min Each Region Completed 04/19/2023 07515 Therapy Proc, Neuromuscular Reeducation Of Movement Completed 04/19/2023 69491 Therapy Proc 1/> Area 15Min Ea Completed 04/19/2023 50067 Hot/Cold Pack Completed 04/18/2023 09883 Manual Broadband Technician 1/> Area 15 Min Each Region Completed 04/18/2023 88801 Therapy Proc, Neuromuscular Reeducation Of Movement Completed 04/18/2023 28220 Therapy Proc 1/> Area 15Min Ea Completed 04/15/2023 55790 Hot/Cold Pack Completed 04/15/2023 22670 Therapy Proc, Neuromuscular Reeducation Of Movement Completed 04/15/2023 80646 Manual Broadband Technician 1/> Area 15 Min Each Region Completed 04/15/2023 57163 Therapy Proc 1/> Area 15Min Ea Completed 04/12/2023 84581 Therapy Proc, Neuromuscular Reeducation Of Movement Completed 04/12/2023 08116 Therapy Proc 1/> Area 15Min Ea Completed 04/12/2023 41106 Hot/Cold Pack Completed 04/12/2023 18708 Manual Broadband Technician 1/> Area 15 Min Each Region Completed 04/10/2023 78864 Manual Broadband Technician 1/> Area 15 Min Each Region Completed 04/10/2023 74500 Therapy Proc, Neuromuscular Reeducation Of Movement Completed 04/10/2023 67907 Therapy Proc 1/> Area 15Min Ea Completed 04/08/2023 28365 Manual Broadband Technician 1/> Area 15 Min Each Region Completed 04/08/2023 32524 Therapy Proc, Neuromuscular Reeducation Of Movement Completed 04/08/2023 19582 Therapy Proc 1/> Area 15Min Ea Completed 04/05/2023 12423 Manual Broadband Technician 1/> Area 15 Min Each Region Completed 04/05/2023 39426 Therapy Proc 1/> Area 15Min Ea Completed 04/05/2023 50140 Therapy Proc, Neuromuscular Reeducation Of Movement Completed 04/03/2023 10580 Manual Broadband Technician 1/> Area 15 Min Each Region Completed 04/03/2023 01637 Therapy Proc, Neuromuscular Reeducation Of Movement Completed 04/03/2023 00502 Therapy Proc 1/> Area 15Min Ea Completed 04/01/2023 66935 Manual Broadband Technician 1/> Area 15 Min Each Region Completed 04/01/2023 70753 Therapy Proc, Neuromuscular Reeducation Of Movement Completed 04/01/2023 63587 Therapy Proc 1/> Area 15Min Ea Completed 03/29/2023 10398 Therapy Proc 1/> Area 15Min Ea Completed 03/29/2023 27215 Manual Broadband Technician 1/> Area 15 Min Each Region Completed 03/29/2023 71374 Therapy Proc, Neuromuscular Reeducation Of Movement Completed 03/27/2023 81811 Manual Broadband Technician 1/> Area 15 Min Each Region Completed 03/27/2023 90029 Therapy Proc, Neuromuscular Reeducation Of Movement Completed 03/27/2023 30248 Therapy Proc 1/> Area 15Min Ea Completed 03/25/2023 58668 Manual Broadband Technician 1/> Area 15 Min Each Region Completed 03/25/2023 84046 Therapy Proc, Neuromuscular Reeducation Of Movement Completed 03/25/2023 33031 Therapy Proc 1/> Area 15Min Ea Completed 03/22/2023 55463 Manual Broadband Technician 1/> Area 15 Min Each Region Completed 03/22/2023 47652 Therapy Proc, Neuromuscular Reeducation Of Movement Completed 03/22/2023 88960 Therapy Proc 1/> Area 15Min Ea Completed 03/20/2023 81017 Therapy Proc, Neuromuscular Reeducation Of Movement Completed 03/20/2023 70461 Therapy Proc 1/> Area 15Min Ea Completed 03/20/2023 90339 Manual Broadband Technician 1/> Area 15 Min Each Region Completed 03/18/2023 63465 Manual Broadband Technician 1/> Area 15 Min Each Region Completed 03/18/2023 65105 Therapy Proc, Neuromuscular Reeducation Of Movement Completed 03/18/2023 45471 Therapy Proc 1/> Area 15Min Ea Completed 03/15/2023 72129 Manual Broadband Technician 1/> Area 15 Min Each Region Completed 03/15/2023 79046 Therapy Proc, Neuromuscular Reeducation Of Movement Completed 03/15/2023 29559 Therapy Proc 1/> Area 15Min Ea Completed 03/13/2023 18309 Physical Therapy Evaluation Moderate Complexity Completed 03/13/2023 80041 Manual Broadband Technician 1/> Area 15 Min Each Region Completed 03/13/2023 92906 Therapy Proc 1/> Area 15Min Ea Completed 02/18/2023 16185 Venipuncture Routine Complet ed 11/27/2022 29158 Venipuncture Routine Complet ed Medical Devices Description No Information Available Encounters Type Date Location Provider Dx Diagnosis Office Visit 02/22/2023 10:30a Jonatan Almodovar, I10 Essential (pr imary) hypertension 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 F41.1 Generalized anxiety disorder M15.0 Primary generalized (osteo)arthritis Assessments Date Code Description Provider 05/15/2023 R26.2 Difficulty in wa [place]king, not elsewhere classified Aki Garcia DPT 05/15/2023 M25.511 Pain in right shoulder Oziel Garcia, DPT 2023 R26.2 Difficulty in wa lking, not elsewhere classified Aki Garcia DPT 2023 M25.511 Pain in right shoulder [...] I10 Essential (primary) hypertdania johnston [facility] - [place] 02/18/2023 E55.9 Vitamin D deficiency, unspec ified Dawson Almodovar, DO 02/18/2023 E55.9 Vitamin D deficiency, unspec ified Lab - [place] 02/18/2023 E53.8 Deficiency of ot her specified B group vitamins Dawson Almodovar, DO 02/18/2023 E53.8 Deficiency of ot her specified B group vitamins Lab - [place] 11/27/2022 R60.0 Localized edema Dawson Garcia or, DO 11/27/2022 R60.0 Localized edema Lab - [place] 11/27/2022 I10 Essential (primary) hypertdania johnston Dawson Almodovar, DO 11/27/2022 I10 Essential (primary) hypertdania johnston Lab - [place] Plan of Treatment Future Appointment(s):* 09/06/2023 10:30 am - Dawson Almodovar DO at [place] * 08/28/2023 10:30 am - [facility] [place] [facility] [place] Functional Status Description No Information Available Mental Status Description No Information Available Referrals Description No Information Available"
--- OUTSIDE RECORDS SUMMARY | 2023-10-11 13:22 | External Medical Summary | Continuity of Care Document ---
Author Name AKI GARCIA DPT Address [address] [address] Phone [phone] Organization [facility], Address [address] [place] [address] Phone [phone] Problems Active Problems Provider Date Essential hypertension [...] SIG Qnty Indications Order ing Provider Date [id number] Tablets 2 tablets by mouth every day 30tabs R60.0 Fior Rodriguez MD, PhD 10/05/2022 Multi + [place]-3 Adult GummiesChewtabs 1 by mouth every day Dawson Almodovar DO 08/08/2022 Vitamin B ComplexTablets 1 by mouth every day Dawson Almodovar DO 08/08/2022 Losartan Potassium/Hydrochlorothi [id number] Tablets 1 by mouth every day 90tabs I10 Dawson Almodovar, DO 03/21/2020 Juice Plus Fibre` Dawson Almodovar, DO 02/19/2018 Aspirin Adult Low Pbuh56cr Tablets DR 1 by mouth every day Unknown Citalopram Judofecqjkhb00nm Tablets 1 by mouth every day 90tabs F41.1 Dawson Almodovar, DO Vitamin D3 Maximum [id number] (5000 Ut) Capsules 1 by mouth once daily Unknown Immunizations CPT Code Status Date Vaccine Lot # [id number] Given 07/14/2009 Pneumococcal Vaccine/Pneu movax 23 61943 Refused 10/19/2022 Shingrix 48288 Refused 08/08/2022 Pneumococcal Conjugate-Pr evnar 20 39858 Refused 08/08/2022 Influenza Vac, Split, Preservative Free High Dose Age 65 & > 18426 Refused 04/20/2022 Moderna Sars-Co v-2 (Cov-19) vacc,100 mcg/ 0.5 mL 12Y+EMR Doc Only 94753 Refused 10/16/2021 Influenza Virus Vaccine, Quadrivalent (Cciiv4), Derived From Cell 66784 Refused 10/16/2021 Shingrix 64619 Refused 10/16/2021 Pneumococcal Conjugate-Pr evnar 13 68266 Refused 03/20/2021 Pfizer Sars-Cov -2 (Cov-19) vacc 30mcg/0.3ML 12Y+ EMR Doc Only 75515 Refused 04/17/2019 Influenza Vacci ne, Inactivated, Subunit, Adjuvanted, For Intrmusc 35688 Refused 01/29/2019 Tdap (Tetanus, diphtheria & acel. pertussis) Adacel or Boostrix 69350 Refused 01/29/2019 Pneumococcal Conjugate-Pr evnar 13 Vital [...] H/L Range N ote CBC W/Diff 02/18/2023 [facility] [address] [place] [address] [phone] WBC 7.6 10^3/M3 3.1-9.2 RBC 4.19 10^6/M3 3.70-5.50 HGB 12.2 GR/DL 11.5-16.1 HCT 36.6 % 34.5-47.8 MCV 87.5 CUMICR 82.6-95.8 MCH 29.1 PICOGR 27.9-32.9 MCHC 33.3 % 32.6-35.4 RDW 14.9 % High 11.4-14.6 PLT 225 10^3/M3 140-350 MPV 8.8 CUMICR 7.0-10.6 %Neut 57.1 % 40.0-75.0 %Lymph 29.4 % 17.0-45.0 %[place] 8.6 % 1.0-11.0 %Eos 3.8 % 0.0-6.0 %Baso 1.1 % 0.0-2.0 #Neut 4.4 10^3/M3 1.5-8.0 #Lymph 2.2 10^3/M3 0.8-3.2 #[place] 0.7 10^3/M3 0.0-0.8 #Eos 0.3 10^3/m3 0.0-0.4 #Baso 0.1 10^3/m3 0.0-0.2 Comp. Met 02/18/2023 [facility] [address] [place] [address] [phone] Glucose 96 mg/dL 70-110 BUN 18 mg/dL [...] 2.0-3.4 GFR 72 ML/MIN/1.73SQM >60 Lipid 02/18/2023 [facility] [address] [place] [address] [phone] Cholesterol 164 mg/dL 0-200 1 Triglyceride 79 mg/dL 0-150 2 HDLD 62 mg/dL See Comment 3 Measured LDL 99 mg/dL 0-130 4 Calc VLDL 15.8 mg/dL See Comment 5 Chol/HDL 2.6 RATIO See Comment 6 Non-HDL 102 mg/dL See Comment 7 Laboratory test finding 02/18/2023 [facility] [address] [place] [address] [phone] Vitd-25Oh 77 ng/mL 30-100 VB12 411 pg/mL 230-1050 BMP 11/27/2022 [facility] [address] [place] [address] [phone] Glucose 95 mg/dL 70-110 BUN 14 mg/dL [...] Target Procedures Date Code Description Status 05/15/2023 75473 Manual Chemist Food 1/> Area 15 Min Each Region Completed 05/15/2023 83686 Therapeutic Activities Direc t, Each 15 Minutes Completed 05/15/2023 09523 Hot/Cold Pack Completed 05/15/2023 69980 Therapy Proc, Neuromuscular Reeducation Of Movement Completed 05/15/2023 92970 Therapy Proc 1/> Area 15Min Ea Completed 2023 09163 Manual Chemist Food 1/> Area 15 Min Each Region Completed 2023 84278 Therapy Proc, Neuromuscular Reeducation Of Movement Completed 2023 82871 Therapy Proc 1/> Area 15Min Ea Completed 2023 89215 Hot/Cold Pack Completed 2023 27092 Therapeutic Activities Direc t, Each 15 Minutes Completed 05/10/2023 25175 Therapeutic Activities Direc t, Each 15 Minutes Completed 05/10/2023 23349 Manual Chemist Food 1/> Area 15 Min Each Region Completed 05/10/2023 62416 Therapy Proc, Neuromuscular Reeducation Of Movement Completed 05/10/2023 08696 Therapy Proc 1/> Area 15Min Ea Completed 05/10/2023 33662 Hot/Cold Pack Completed 05/08/2023 35586 Manual Chemist Food 1/> Area 15 Min Each Region Completed 05/08/2023 89954 Hot/Cold Pack Completed 05/08/2023 31663 Therapy Proc 1/> Area 15Min Ea Completed 05/08/2023 02605 Therapy Proc, Neuromuscular Reeducation Of Movement Completed 05/08/2023 92523 Therapeutic Activities Direc t, Each 15 Minutes Completed 05/06/2023 99170 Therapeutic Activities Direc t, Each 15 Minutes Completed 05/06/2023 37279 Manual Chemist Food 1/> Area 15 Min Each Region Completed 05/06/2023 35402 Therapy Proc, Neuromuscular Reeducation Of Movement Completed 05/06/2023 61966 Therapy Proc 1/> Area 15Min Ea Completed 05/06/2023 99117 Hot/Cold Pack Completed 05/02/2023 94965 Therapy Proc 1/> Area 15Min Ea Completed 05/02/2023 81059 Manual Chemist Food 1/> Area 15 Min Each Region Completed 05/02/2023 32177 Therapeutic Activities Direc t, Each 15 Minutes Completed 05/02/2023 23827 Therapy Proc, Neuromuscular Reeducation Of Movement Completed 04/30/2023 49343 Manual Chemist Food 1/> Area 15 Min Each Region Completed 04/30/2023 92628 Therapy Proc, Neuromuscular Reeducation Of Movement Completed 04/30/2023 08468 Therapy Proc 1/> Area 15Min Ea Completed 04/30/2023 46580 Hot/Cold Pack Completed 04/24/2023 14967 Manual Chemist Food 1/> Area 15 Min Each Region Completed 04/24/2023 91612 Therapy Proc, Neuromuscular Reeducation Of Movement Completed 04/24/2023 54832 Therapy Proc 1/> Area 15Min Ea Completed 04/22/2023 30568 Therapy Proc 1/> Area 15Min Ea Completed 04/22/2023 87176 Hot/Cold Pack Completed 04/22/2023 45686 Therapy Proc, Neuromuscular Reeducation Of Movement Completed 04/22/2023 76261 Manual Chemist Food 1/> Area 15 Min Each Region Completed 04/19/2023 17139 Manual Chemist Food 1/> Area 15 Min Each Region Completed 04/19/2023 39088 Therapy Proc, Neuromuscular Reeducation Of Movement Completed 04/19/2023 82311 Therapy Proc 1/> Area 15Min Ea Completed 04/19/2023 65970 Hot/Cold Pack Completed 04/18/2023 08746 Manual Chemist Food 1/> Area 15 Min Each Region Completed 04/18/2023 08766 Therapy Proc, Neuromuscular Reeducation Of Movement Completed 04/18/2023 08860 Therapy Proc 1/> Area 15Min Ea Completed 04/15/2023 46135 Hot/Cold Pack Completed 04/15/2023 96229 Therapy Proc, Neuromuscular Reeducation Of Movement Completed 04/15/2023 48629 Manual Chemist Food 1/> Area 15 Min Each Region Completed 04/15/2023 11152 Therapy Proc 1/> Area 15Min Ea Completed 04/12/2023 28002 Therapy Proc, Neuromuscular Reeducation Of Movement Completed 04/12/2023 09244 Therapy Proc 1/> Area 15Min Ea Completed 04/12/2023 62499 Hot/Cold Pack Completed 04/12/2023 51830 Manual Chemist Food 1/> Area 15 Min Each Region Completed 04/10/2023 28046 Manual Chemist Food 1/> Area 15 Min Each Region Completed 04/10/2023 09110 Therapy Proc, Neuromuscular Reeducation Of Movement Completed 04/10/2023 28904 Therapy Proc 1/> Area 15Min Ea Completed 04/08/2023 27694 Manual Chemist Food 1/> Area 15 Min Each Region Completed 04/08/2023 78724 Therapy Proc, Neuromuscular Reeducation Of Movement Completed 04/08/2023 93197 Therapy Proc 1/> Area 15Min Ea Completed 04/05/2023 11424 Manual Chemist Food 1/> Area 15 Min Each Region Completed 04/05/2023 46604 Therapy Proc 1/> Area 15Min Ea Completed 04/05/2023 85027 Therapy Proc, Neuromuscular Reeducation Of Movement Completed 04/03/2023 99590 Manual Chemist Food 1/> Area 15 Min Each Region Completed 04/03/2023 42019 Therapy Proc, Neuromuscular Reeducation Of Movement Completed 04/03/2023 04111 Therapy Proc 1/> Area 15Min Ea Completed 04/01/2023 96300 Manual Chemist Food 1/> Area 15 Min Each Region Completed 04/01/2023 82788 Therapy Proc, Neuromuscular Reeducation Of Movement Completed 04/01/2023 37864 Therapy Proc 1/> Area 15Min Ea Completed 03/29/2023 33481 Therapy Proc 1/> Area 15Min Ea Completed 03/29/2023 47921 Manual Chemist Food 1/> Area 15 Min Each Region Completed 03/29/2023 54393 Therapy Proc, Neuromuscular Reeducation Of Movement Completed 03/27/2023 51644 Manual Chemist Food 1/> Area 15 Min Each Region Completed 03/27/2023 91691 Therapy Proc, Neuromuscular Reeducation Of Movement Completed 03/27/2023 70902 Therapy Proc 1/> Area 15Min Ea Completed 03/25/2023 69793 Manual Chemist Food 1/> Area 15 Min Each Region Completed 03/25/2023 17571 Therapy Proc, Neuromuscular Reeducation Of Movement Completed 03/25/2023 29802 Therapy Proc 1/> Area 15Min Ea Completed 03/22/2023 10588 Manual Chemist Food 1/> Area 15 Min Each Region Completed 03/22/2023 91543 Therapy Proc, Neuromuscular Reeducation Of Movement Completed 03/22/2023 48846 Therapy Proc 1/> Area 15Min Ea Completed 03/20/2023 68700 Therapy Proc, Neuromuscular Reeducation Of Movement Completed 03/20/2023 62738 Therapy Proc 1/> Area 15Min Ea Completed 03/20/2023 63128 Manual Chemist Food 1/> Area 15 Min Each Region Completed 03/18/2023 22332 Manual Chemist Food 1/> Area 15 Min Each Region Completed 03/18/2023 41418 Therapy Proc, Neuromuscular Reeducation Of Movement Completed 03/18/2023 06980 Therapy Proc 1/> Area 15Min Ea Completed 03/15/2023 12096 Manual Chemist Food 1/> Area 15 Min Each Region Completed 03/15/2023 06177 Therapy Proc, Neuromuscular Reeducation Of Movement Completed 03/15/2023 12597 Therapy Proc 1/> Area 15Min Ea Completed 03/13/2023 88441 Physical Therapy Evaluation Moderate Complexity Completed 03/13/2023 36184 Manual Chemist Food 1/> Area 15 Min Each Region Completed 03/13/2023 82634 Therapy Proc 1/> Area 15Min Ea Completed 02/18/2023 57876 Venipuncture Routine Complet ed 11/27/2022 82776 Venipuncture Routine Complet ed Medical Devices Description [...] in [place], not elsewhere classified Aki Gacria DPT 05/10/2023 M25.511 Pain in right shoulder [...] I10 Essential (primary) hypertdania [facility] [place] 02/18/2023 E55.9 Vitamin D deficiency, unspec ified Dawson Almodovar, DO 02/18/2023 E55.9 Vitamin D deficiency, unspec ified Lab - [place] 02/18/2023 E53.8 Deficiency of ot her specified B group vitamins Dawson Almodovar, DO 02/18/2023 E53.8 Deficiency of ot her specified B group vitamins [facility] - [place] 11/27/2022 R60.0 Localized edema Dawson Garcia or, DO 11/27/2022 R60.0 Localized edema Lab [place] 11/27/2022 I10 Essential (primary) hypertdania [place]ohnston Dawson Almodovar, DO 11/27/2022 I10 Essential (primary) hypertdania [place] [place] Plan of Treatment Future Appointment(s):* 09/06/2023 10:30 am - Dawson Almodovar DO at [place] * 08/28/2023 10:30 am - [facility] [place] [facility] [place] Functional Status Description No Information Available Mental Status Description No Information Available Referrals Description No Information Available"
--- OUTSIDE RECORDS SUMMARY | 2023-10-11 13:22 | External Medical Summary | Continuity of Care Document ---
Author Name AKI GARCIA DPT Address [address] [address] Phone [phone] Organization [facility], Address [address] [place] [address] Phone [phone] Problems Active Problems Provider Date Essential hypertension [...] SIG Qnty Indications Order ing Provider Date Yijugufsia87ks Tablets 2 tablets by mouth every day 30tabs R60.0 Fior Rodriguez MD, PhD 10/05/2022 Multi + [place]-3 Adult GummiesChewtabs 1 by mouth every day Dawson Almodovar DO 08/08/2022 Vitamin B ComplexTablets 1 by mouth every day Dawson Almodovar DO 08/08/2022 Losartan Potassium/Hydrochlorothi vabbu862-88ym Tablets 1 by mouth every day 90tabs I10 Dawson Almodovar, DO 03/21/2020 Juice Plus Fibre` Dawson Almodovar, DO 02/19/2018 Aspirin Adult Low Iojg07pq Tablets DR 1 by mouth every day Unknown Citalopram Stgprxzwhzzu48gc Tablets 1 by mouth every day 90tabs F41.1 Dawson Almodovar, DO Vitamin D3 Maximum Xavjgtgx488gzg (5000 Ut) Capsules 1 by mouth once daily Unknown Immunizations CPT Code Status Date Vaccine Lot # [id number] Given 07/14/2009 Pneumococcal Vaccine/Pneu movax 23 86836 Refused 10/19/2022 Shingrix 02280 Refused 08/08/2022 Pneumococcal Conjugate-Pr evnar 20 80750 Refused 08/08/2022 Influenza Vac, Split, Preservative Free High Dose Age 65 & > 56995 Refused 04/20/2022 Moderna Sars-Co v-2 (Cov-19) vacc,100 mcg/ 0.5 mL 12Y+EMR Doc Only 83775 Refused 10/16/2021 Influenza Virus Vaccine, Quadrivalent (Cciiv4), Derived From Cell 01542 Refused 10/16/2021 Shingrix 60916 Refused 10/16/2021 Pneumococcal Conjugate-Pr evnar 13 27163 Refused 03/20/2021 Pfizer Sars-Cov -2 (Cov-19) vacc 30mcg/0.3ML 12Y+ EMR Doc Only 80843 Refused 04/17/2019 Influenza Vacci ne, Inactivated, Subunit, Adjuvanted, For Intrmusc 13821 Refused 01/29/2019 Tdap (Tetanus, diphtheria & acel. pertussis) Adacel or Boostrix 03284 Refused 01/29/2019 Pneumococcal Conjugate-Pr evnar 13 Vital [...] H/L Range N ote CBC W/Diff 02/18/2023 [facility]. [address] [place] [address] [phone] WBC 7.6 10^3/M3 3.1-9.2 RBC 4.19 10^6/M3 3.70-5.50 HGB 12.2 GR/DL 11.5-16.1 HCT 36.6 % 34.5-47.8 MCV 87.5 CUMICR 82.6-95.8 MCH 29.1 PICOGR 27.9-32.9 MCHC 33.3 % 32.6-35.4 RDW 14.9 % High 11.4-14.6 PLT 225 10^3/M3 140-350 MPV 8.8 CUMICR 7.0-10.6 %Neut 57.1 % 40.0-75.0 %Lymph 29.4 % 17.0-45.0 %[place] 8.6 % 1.0-11.0 %Eos 3.8 % 0.0-6.0 %Baso 1.1 % 0.0-2.0 #Neut 4.4 10^3/M3 1.5-8.0 #Lymph 2.2 10^3/M3 0.8-3.2 #[place] 0.7 10^3/M3 0.0-0.8 #Eos 0.3 10^3/m3 0.0-0.4 #Baso 0.1 10^3/m3 0.0-0.2 Comp. Met 02/18/2023 [facility]. [address] [place] [address] [phone] Glucose 96 mg/dL 70-110 BUN 18 mg/dL [...] 2.0-3.4 GFR 72 ML/MIN/1.73SQM >60 Lipid 02/18/2023 [facility] [address] [place] [address] [phone] Cholesterol 164 mg/dL 0-200 1 Triglyceride 79 mg/dL 0-150 2 HDLD 62 mg/dL See Comment 3 Measured LDL 99 mg/dL 0-130 4 Calc VLDL 15.8 mg/dL See Comment 5 Chol/HDL 2.6 RATIO See Comment 6 Non-HDL 102 mg/dL See Comment 7 Laboratory test finding 02/18/2023 [facility] [address] [place] [address] [phone] Vitd-25Oh 77 ng/mL 30-100 VB12 411 pg/mL 230-1050 BMP 11/27/2022 [facility] [address] [place], [place] [id number] [phone] Glucose 95 mg/dL 70-110 BUN 14 mg/dL 6-25 Creatinine 0.8 mg/dL 0.5-1.2 Sodium 136 mEq/L 135-145 Potassium 4.0 mEq/L 3.5-5.0 Chloride 97 mEq/L 95-107 Co-2 29 mEq/L 24-31 Calcium 9.8 mg/dL 8.5-10.6 GFR 72 >60 BMP 11/15/2022 [facility] [address] [place], [place] [id number] [phone] Glucose 118 mg/dL High 70-110 BUN 14 [...] LDL Target Procedures Date Code Description Status 04/30/2023 02868 Therapy Proc, Neuromuscular Reeducation Of Movement Completed 04/30/2023 63823 Manual Fuel Cell Test Engineer 1/> Area 15 Min Each Region Completed 04/30/2023 87983 Hot/Cold Pack Completed 04/30/2023 56782 Therapy Proc 1/> Area 15Min Ea Completed 04/24/2023 95421 Manual Fuel Cell Test Engineer 1/> Area 15 Min Each Region Completed 04/24/2023 55011 Therapy Proc, Neuromuscular Reeducation Of Movement Completed 04/24/2023 59496 Therapy Proc 1/> Area 15Min Ea Completed 04/22/2023 29902 Manual Fuel Cell Test Engineer 1/> Area 15 Min Each Region Completed 04/22/2023 76235 Therapy Proc, Neuromuscular Reeducation Of Movement Completed 04/22/2023 42653 Therapy Proc 1/> Area 15Min Ea Completed 04/22/2023 81498 Hot/Cold Pack Completed 04/19/2023 76529 Manual Fuel Cell Test Engineer 1/> Area 15 Min Each Region Completed 04/19/2023 65341 Hot/Cold Pack Completed 04/19/2023 98443 Therapy Proc 1/> Area 15Min Ea Completed 04/19/2023 68153 Therapy Proc, Neuromuscular Reeducation Of Movement Completed 04/18/2023 04944 Manual Fuel Cell Test Engineer 1/> Area 15 Min Each Region Completed 04/18/2023 49325 Therapy Proc, Neuromuscular Reeducation Of Movement Completed 04/18/2023 34412 Therapy Proc 1/> Area 15Min Ea Completed 04/15/2023 92116 Manual Fuel Cell Test Engineer 1/> Area 15 Min Each Region Completed 04/15/2023 27686 Hot/Cold Pack Completed 04/15/2023 30838 Therapy Proc 1/> Area 15Min Ea Completed 04/15/2023 93584 Therapy Proc, Neuromuscular Reeducation Of Movement Completed 04/12/2023 35369 Manual Fuel Cell Test Engineer 1/> Area 15 Min Each Region Completed 04/12/2023 83809 Therapy Proc, Neuromuscular Reeducation Of Movement Completed 04/12/2023 42247 Therapy Proc 1/> Area 15Min Ea Completed 04/12/2023 41409 Hot/Cold Pack Completed 04/10/2023 29132 Manual Fuel Cell Test Engineer 1/> Area 15 Min Each Region Completed 04/10/2023 11162 Therapy Proc, Neuromuscular Reeducation Of Movement Completed 04/10/2023 55838 Therapy Proc 1/> Area 15Min Ea Completed 04/08/2023 98545 Manual Fuel Cell Test Engineer 1/> Area 15 Min Each Region Completed 04/08/2023 23649 Therapy Proc, Neuromuscular Reeducation Of Movement Completed 04/08/2023 10751 Therapy Proc 1/> Area 15Min Ea Completed 04/05/2023 37998 Therapy Proc 1/> Area 15Min Ea Completed 04/05/2023 00132 Manual Fuel Cell Test Engineer 1/> Area 15 Min Each Region Completed 04/05/2023 58117 Therapy Proc, Neuromuscular Reeducation Of Movement Completed 04/03/2023 92481 Manual Fuel Cell Test Engineer 1/> Area 15 Min Each Region Completed 04/03/2023 36078 Therapy Proc, Neuromuscular Reeducation Of Movement Completed 04/03/2023 13692 Therapy Proc 1/> Area 15Min Ea Completed 04/01/2023 38070 Manual Fuel Cell Test Engineer 1/> Area 15 Min Each Region Completed 04/01/2023 63790 Therapy Proc, Neuromuscular Reeducation Of Movement Completed 04/01/2023 83605 Therapy Proc 1/> Area 15Min Ea Completed 03/29/2023 95517 Therapy Proc, Neuromuscular Reeducation Of Movement Completed 03/29/2023 70298 Therapy Proc 1/> Area 15Min Ea Completed 03/29/2023 38538 Manual Fuel Cell Test Engineer 1/> Area 15 Min Each Region Completed 03/27/2023 75797 Manual Fuel Cell Test Engineer 1/> Area 15 Min Each Region Completed 03/27/2023 12409 Therapy Proc, Neuromuscular Reeducation Of Movement Completed 03/27/2023 51175 Therapy Proc 1/> Area 15Min Ea Completed 03/25/2023 70417 Manual Fuel Cell Test Engineer 1/> Area 15 Min Each Region Completed 03/25/2023 86064 Therapy Proc, Neuromuscular Reeducation Of Movement Completed 03/25/2023 23597 Therapy Proc 1/> Area 15Min Ea Completed 03/22/2023 36521 Manual Fuel Cell Test Engineer 1/> Area 15 Min Each Region Completed 03/22/2023 06714 Therapy Proc 1/> Area 15Min Ea Completed 03/22/2023 32011 Therapy Proc, Neuromuscular Reeducation Of Movement Completed 03/20/2023 23051 Manual Fuel Cell Test Engineer 1/> Area 15 Min Each Region Completed 03/20/2023 58281 Therapy Proc, Neuromuscular Reeducation Of Movement Completed 03/20/2023 45266 Therapy Proc 1/> Area 15Min Ea Completed 03/18/2023 44425 Manual Fuel Cell Test Engineer 1/> Area 15 Min Each Region Completed 03/18/2023 64348 Therapy Proc, Neuromuscular Reeducation Of Movement Completed 03/18/2023 21936 Therapy Proc 1/> Area 15Min Ea Completed 03/15/2023 22789 Manual Fuel Cell Test Engineer 1/> Area 15 Min Each Region Completed 03/15/2023 55636 Therapy Proc, Neuromuscular Reeducation Of Movement Completed 03/15/2023 44119 Therapy Proc 1/> Area 15Min Ea Completed 03/13/2023 89446 Physical Therapy Evaluation Moderate Complexity Completed 03/13/2023 90859 Manual Fuel Cell Test Engineer 1/> Area 15 Min Each Region Completed 03/13/2023 67338 Therapy Proc 1/> Area 15Min Ea Completed 02/18/2023 19946 Venipuncture Routine Complet ed 11/27/2022 17837 Venipuncture Routine Complet ed 11/15/2022 41198 Venipuncture Routine Complet ed Medical Devices Description No Information Available Encounters Type Date Location Provider Dx Diagnosis Office Visit 02/22/2023 10:30a Jonatan Almodovar, I10 Essential (pr imary) hypertension 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 F41.1 Generalized anxiety disorder M15.0 Primary generalized (osteo)arthritis Assessments Date Code Description Provider 04/30/2023 R26.2 Difficulty in [place], not elsewhere classified Aki Garcia DPT 04/30/2023 M25.511 Pain in right shoulder Oziel Garcia DPT 04/26/2023 R26.2 Difficulty in [place], not elsewhere classified Aki Garcia DPT 04/26/2023 M25.511 Pain in right shoulder Oziel Garcia DPT 04/24/2023 R26.2 Difficulty in [place], not elsewhere classified Aki Garcia, DPT 04/24/2023 M25.511 Pain in right shoulder Oziel Garcia, DPT 04/22/2023 R26.2 Difficulty in [place], not elsewhere classified Aki aGrcia, DPT 04/22/2023 M25.511 Pain in right shoulder [...] DO 02/18/2023 I10 Essential (primary) hyperten vickie Dawsno Almodovar, DO 02/18/2023 I10 Essential (primary) hyperten vickie [facility] - [place] 02/18/2023 E55.9 Vitamin D deficiency, unspec ified Dawson Almodovar, DO 02/18/2023 E55.9 Vitamin D deficiency, unspec ified Lab - [place] 02/18/2023 E53.8 Deficiency of ot her specified B group vitamins Dawson Almodovar, DO 02/18/2023 E53.8 Deficiency of ot her specified B group vitamins Lab - [place] 11/27/2022 R60.0 Localized edema Dawson A. Jose or, DO 11/27/2022 R60.0 Localized edema Lab - [place] 11/27/2022 I10 Essential (primary) hyperten vickie Dawson Almodovar, DO 11/27/2022 I10 Essential (primary) hyperten vickie [facility] - [place] 11/15/2022 R60.0 Localized edema Dawson Jamila Jose or, DO 11/15/2022 R60.0 Localized edema [facility] [place] 11/15/2022 I10 Essential (primary) hyperten vickie Dawson Almodovar, DO 11/15/2022 I10 Essential (primary) hyperten vickie [facility] - [place] Plan of Treatment Future Appointment(s):* 09/06/2023 10:30 am - Dawson Almodovar DO at [place] * 08/28/2023 10:30 am - [facility] [place] Functional Status Description No Information Available Mental Status Description No Information Available Referrals Description No Information Available"
--- OUTSIDE RECORDS SUMMARY | 2023-10-11 13:22 | External Medical Summary | Continuity of Care Document ---
Author Name AKI GARCIA DPT Address [address] [address] Phone [phone] Organization [facility], Address [address] [place] [address] Phone [phone] Problems Active Problems Provider Date Essential hypertension [...] SIG Qnty Indications Order ing Provider Date Nkeihhbjus04jc Tablets 2 tablets by mouth every day 30tabs R60.0 Fior Rodriguez MD, PhD 10/05/2022 Multi + [place]-3 Adult GummiesChewtabs 1 by mouth every day Dawson Almodovar DO 08/08/2022 Vitamin B ComplexTablets 1 by mouth every day Dawson Almodovar DO 08/08/2022 Losartan Potassium/Hydrochlorothi filkv109-14ks Tablets 1 by mouth every day 90tabs I10 Dawson Almodovar, DO 03/21/2020 Juice Plus Fibre` Dawson Almodovar, DO 02/19/2018 Aspirin Adult Low Xrta15wh Tablets DR 1 by mouth every day Unknown Citalopram Cusbxbhbwsiz78km Tablets 1 by mouth every day 90tabs F41.1 Dawson Almodovar, DO Vitamin D3 Maximum [id number] (5000 Ut) Capsules 1 by mouth once daily Unknown Immunizations CPT Code Status Date Vaccine Lot # [id number] Given 07/14/2009 Pneumococcal Vaccine/Pneu movax 23 49347 Refused 10/19/2022 Shingrix 21450 Refused 08/08/2022 Pneumococcal Conjugate-Pr evnar 20 46131 Refused 08/08/2022 Influenza Vac, Split, Preservative Free High Dose Age 65 & > [address] Refused 04/20/2022 Moderna Sars-Co v-2 (Cov-19) vacc,100 mcg/ 0.5 mL 12Y+EMR Doc Only 42841 Refused 10/16/2021 Influenza Virus Vaccine, Quadrivalent (Cciiv4), Derived From Cell 99988 Refused 10/16/2021 Shingrix 50028 Refused 10/16/2021 Pneumococcal Conjugate-Pr evnar 13 93302 Refused 03/20/2021 Pfizer Sars-Cov -2 (Cov-19) vacc 30mcg/0.3ML 12Y+ EMR Doc Only 63829 Refused 04/17/2019 Influenza Vacci ne, Inactivated, Subunit, Adjuvanted, For Intrmusc 56318 Refused 01/29/2019 Tdap (Tetanus, diphtheria & acel. pertussis) Adacel or Boostrix 91737 Refused 01/29/2019 Pneumococcal Conjugate-Pr evnar 13 Vital [...] H/L Range N ote CBC W/Diff 02/18/2023 [facility]. [address] [place] [address] [phone] WBC 7.6 10^3/M3 3.1-9.2 RBC 4.19 10^6/M3 3.70-5.50 HGB 12.2 GR/DL 11.5-16.1 HCT 36.6 % 34.5-47.8 MCV 87.5 CUMICR 82.6-95.8 MCH 29.1 PICOGR 27.9-32.9 MCHC 33.3 % 32.6-35.4 RDW 14.9 % High 11.4-14.6 PLT 225 10^3/M3 140-350 MPV 8.8 CUMICR 7.0-10.6 %Neut 57.1 % 40.0-75.0 %Lymph 29.4 % 17.0-45.0 %Bates 8.6 % 1.0-11.0 %Eos 3.8 % 0.0-6.0 %Baso 1.1 % 0.0-2.0 #Neut 4.4 10^3/M3 1.5-8.0 #Lymph 2.2 10^3/M3 0.8-3.2 #Bates 0.7 10^3/M3 0.0-0.8 #Eos 0.3 10^3/m3 0.0-0.4 #Baso 0.1 10^3/m3 0.0-0.2 Comp. Met 02/18/2023 [facility]. [address] [place] [address] [phone] Glucose 96 mg/dL 70-110 BUN 18 mg/dL [...] 2.0-3.4 GFR 72 ML/MIN/1.73SQM >60 Lipid 02/18/2023 [facility]. [address] [place] [address] [phone] Cholesterol 164 mg/dL 0-200 1 Triglyceride 79 mg/dL 0-150 2 HDLD 62 mg/dL See Comment 3 Measured LDL 99 mg/dL 0-130 4 Calc VLDL 15.8 mg/dL See Comment 5 Chol/HDL 2.6 RATIO See Comment 6 Non-HDL 102 mg/dL See Comment 7 Laboratory test finding 02/18/2023 [facility]. [address] [place] [address] [phone] Vitd-25Oh 77 ng/mL 30-100 VB12 411 pg/mL 230-1050 BMP 11/27/2022 [facility]. [address] [place], [place] [id number] [phone] Glucose 95 mg/dL 70-110 BUN 14 mg/dL 6-25 Creatinine 0.8 mg/dL 0.5-1.2 Sodium 136 mEq/L 135-145 Potassium 4.0 mEq/L 3.5-5.0 Chloride 97 mEq/L 95-107 Co-2 29 mEq/L 24-31 Calcium 9.8 mg/dL 8.5-10.6 GFR 72 >60 BMP 11/15/2022 [facility]. [address] [place], [place] [address] [phone] Glucose 118 mg/dL High 70-110 BUN 14 [...] LDL Target Procedures Date Code Description Status 04/24/2023 85139 Therapy Proc, Neuromuscular Reeducation Of Movement Completed 04/24/2023 42047 Manual Calender Machine Operator Helper 1/> Area 15 Min Each Region Completed 04/24/2023 82447 Therapy Proc 1/> Area 15Min Ea Completed 04/22/2023 83096 Manual Calender Machine Operator Helper 1/> Area 15 Min Each Region Completed 04/22/2023 65964 Therapy Proc, Neuromuscular Reeducation Of Movement Completed 04/22/2023 45164 Therapy Proc 1/> Area 15Min Ea Completed 04/22/2023 45472 Hot/Cold Pack Completed 04/19/2023 93038 Manual Calender Machine Operator Helper 1/> Area 15 Min Each Region Completed 04/19/2023 72904 Therapy Proc, Neuromuscular Reeducation Of Movement Completed 04/19/2023 33038 Therapy Proc 1/> Area 15Min Ea Completed 04/19/2023 14480 Hot/Cold Pack Completed 04/18/2023 55661 Manual Calender Machine Operator Helper 1/> Area 15 Min Each Region Completed 04/18/2023 89848 Therapy Proc, Neuromuscular Reeducation Of Movement Completed 04/18/2023 12075 Therapy Proc 1/> Area 15Min Ea Completed 04/15/2023 54292 Hot/Cold Pack Completed 04/15/2023 19427 Therapy Proc 1/> Area 15Min Ea Completed 04/15/2023 15447 Manual Calender Machine Operator Helper 1/> Area 15 Min Each Region Completed 04/15/2023 45352 Therapy Proc, Neuromuscular Reeducation Of Movement Completed 04/12/2023 61659 Manual Calender Machine Operator Helper 1/> Area 15 Min Each Region Completed 04/12/2023 02445 Therapy Proc, Neuromuscular Reeducation Of Movement Completed 04/12/2023 74128 Therapy Proc 1/> Area 15Min Ea Completed 04/12/2023 11935 Hot/Cold Pack Completed 04/10/2023 02724 Therapy Proc 1/> Area 15Min Ea Completed 04/10/2023 42142 Therapy Proc, Neuromuscular Reeducation Of Movement Completed 04/10/2023 53908 Manual Calender Machine Operator Helper 1/> Area 15 Min Each Region Completed 04/08/2023 81966 Manual Calender Machine Operator Helper 1/> Area 15 Min Each Region Completed 04/08/2023 34153 Therapy Proc, Neuromuscular Reeducation Of Movement Completed 04/08/2023 97718 Therapy Proc 1/> Area 15Min Ea Completed 04/05/2023 65418 Manual Calender Machine Operator Helper 1/> Area 15 Min Each Region Completed 04/05/2023 39366 Therapy Proc, Neuromuscular Reeducation Of Movement Completed 04/05/2023 90204 Therapy Proc 1/> Area 15Min Ea Completed 04/03/2023 87814 Therapy Proc 1/> Area 15Min Ea Completed 04/03/2023 09976 Therapy Proc, Neuromuscular Reeducation Of Movement Completed 04/03/2023 36877 Manual Calender Machine Operator Helper 1/> Area 15 Min Each Region Completed 04/01/2023 18240 Manual Calender Machine Operator Helper 1/> Area 15 Min Each Region Completed 04/01/2023 69025 Therapy Proc, Neuromuscular Reeducation Of Movement Completed 04/01/2023 36780 Therapy Proc 1/> Area 15Min Ea Completed 03/29/2023 17302 Manual Calender Machine Operator Helper 1/> Area 15 Min Each Region Completed 03/29/2023 95004 Therapy Proc, Neuromuscular Reeducation Of Movement Completed 03/29/2023 89157 Therapy Proc 1/> Area 15Min Ea Completed 03/27/2023 69939 Manual Calender Machine Operator Helper 1/> Area 15 Min Each Region Completed 03/27/2023 46705 Therapy Proc, Neuromuscular Reeducation Of Movement Completed 03/27/2023 56657 Therapy Proc 1/> Area 15Min Ea Completed 03/25/2023 28239 Manual Calender Machine Operator Helper 1/> Area 15 Min Each Region Completed 03/25/2023 08179 Therapy Proc, Neuromuscular Reeducation Of Movement Completed 03/25/2023 07680 Therapy Proc 1/> Area 15Min Ea Completed 03/22/2023 90596 Therapy Proc 1/> Area 15Min Ea Completed 03/22/2023 34608 Manual Calender Machine Operator Helper 1/> Area 15 Min Each Region Completed 03/22/2023 85347 Therapy Proc, Neuromuscular Reeducation Of Movement Completed 03/20/2023 90916 Manual Calender Machine Operator Helper 1/> Area 15 Min Each Region Completed 03/20/2023 17551 Therapy Proc, Neuromuscular Reeducation Of Movement Completed 03/20/2023 66832 Therapy Proc 1/> Area 15Min Ea Completed 03/18/2023 06238 Manual Calender Machine Operator Helper 1/> Area 15 Min Each Region Completed 03/18/2023 66197 Therapy Proc, Neuromuscular Reeducation Of Movement Completed 03/18/2023 00876 Therapy Proc 1/> Area 15Min Ea Completed 03/15/2023 19130 Manual Calender Machine Operator Helper 1/> Area 15 Min Each Region Completed 03/15/2023 70280 Therapy Proc 1/> Area 15Min Ea Completed 03/15/2023 02787 Therapy Proc, Neuromuscular Reeducation Of Movement Completed 03/13/2023 28330 Physical Therapy Evaluation Moderate Complexity Completed 03/13/2023 90124 Manual Calender Machine Operator Helper 1/> Area 15 Min Each Region Completed 03/13/2023 78873 Therapy Proc 1/> Area 15Min Ea Completed 02/18/2023 90352 Venipuncture Routine Complet ed 11/27/2022 30454 Venipuncture Routine Complet ed 11/15/2022 90949 Venipuncture Routine Complet ed Medical Devices Description No Information Available Encounters Type Date Location Provider Dx Diagnosis Office Visit 02/22/2023 10:30a Jonatan Almodovar DO I10 Essential (pr imary) hypertension 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 F41.1 Generalized anxiety disorder M15.0 Primary generalized (osteo)arthritis Assessments Date Code Description Provider 04/24/2023 R26.2 Difficulty in wa lking, not elsewhere classified Aki Garcia DPT 04/24/2023 M25.511 Pain in right shoulder Oziel Garcia, NOE 04/22/2023 R26.2 Difficulty in wa lking, not elsewhere classified Aki Garcia DPT 04/22/2023 M25.511 Pain in right shoulder Oziel Garcia, NOE 04/19/2023 R26.2 Difficulty in wa lking, not elsewhere classified Aki Garcia DPT 04/19/2023 M25.511 Pain in right shoulder Oziel Garcia, NOE 04/18/2023 R26.2 Difficulty in wa lking, not elsewhere classified Aki Garcia DPT 04/18/2023 M25.511 Pain in right shoulder [...] I10 Essential (primary) hyperten vickie [facility] [place] 02/18/2023 E55.9 Vitamin D deficiency, unspec ified Dawson Almodovar, DO 02/18/2023 E55.9 Vitamin D deficiency, unspec ified [facility] [place] 02/18/2023 E53.8 Deficiency of ot her specified B group vitamins Dawson Almodovar, DO 02/18/2023 E53.8 Deficiency of ot her specified B group vitamins [facility] [place] 11/27/2022 R60.0 Localized edema Dawson hidalgo, DO 11/27/2022 R60.0 Localized edema [facility] [place] 11/27/2022 I10 Essential (primary) hyperten vickie Almodovar, DO 11/27/2022 I10 Essential (primary) hyperten vickie [facility] [place] 11/15/2022 R60.0 Localized edema Dawson hidalgo, DO 11/15/2022 R60.0 Localized edema Lab - [place] 11/15/2022 I10 Essential (primary) hyperten vickie Dawson Almodovar DO 11/15/2022 I10 Essential (primary) hyperten vickie [facility] [place] Plan of Treatment Future Appointment(s):* 09/06/2023 10:30 am - Dawson Almodovar DO at [place] * 08/28/2023 10:30 am - [facility] Functional Status Description No Information Available Mental Status Description No Information Available Referrals Description No Information Available"
--- OUTSIDE RECORDS SUMMARY | 2023-10-11 13:22 | External Medical Summary | Continuity of Care Document ---
Author Name AKI GARCIA DPT Address [address] [address] Phone [phone] Organization [facility], Address [address] [place] [address] Phone [phone] Problems Active Problems Provider Date Essential hypertension [...] SIG Qnty Indications Order ing Provider Date Baksufavhn80dm Tablets 2 tablets by mouth every day 30tabs R60.0 Fior Rodriguez MD, PhD 10/05/2022 Multi + [place]-3 Adult GummiesChewtabs 1 by mouth every day Dawson Almodovar DO 08/08/2022 Vitamin B ComplexTablets 1 by mouth every day Dawson Almodovar DO 08/08/2022 Losartan Potassium/Hydrochlorothi cgafl160-53ed Tablets 1 by mouth every day 90tabs I10 Dawson Almodovar, DO 03/21/2020 Juice Plus Fibre` Dawson Almodovar, DO 02/19/2018 Aspirin Adult Low Ehdr39fq Tablets DR 1 by mouth every day Unknown Citalopram Aohlhdohrjap61qi Tablets 1 by mouth every day 90tabs F41.1 Dawson Almodovar, DO Vitamin D3 Maximum [id number] (5000 Ut) Capsules 1 by mouth once daily Unknown Immunizations CPT Code Status Date Vaccine Lot # [id number] Given 07/14/2009 Pneumococcal Vaccine/Pneu movax 23 63466 Refused 10/19/2022 Shingrix 56014 Refused 08/08/2022 Pneumococcal Conjugate-Pr evnar 20 63820 Refused 08/08/2022 Influenza Vac, Split, Preservative Free High Dose Age 65 & > [address] Refused 04/20/2022 Moderna Sars-Co v-2 (Cov-19) vacc,100 mcg/ 0.5 mL 12Y+EMR Doc Only 58383 Refused 10/16/2021 Influenza Virus Vaccine, Quadrivalent (Cciiv4), Derived From Cell 54201 Refused 10/16/2021 Shingrix 18094 Refused 10/16/2021 Pneumococcal Conjugate-Pr evnar 13 64174 Refused 03/20/2021 Pfizer Sars-Cov -2 (Cov-19) vacc 30mcg/0.3ML 12Y+ EMR Doc Only 44857 Refused 04/17/2019 Influenza Vacci ne, Inactivated, Subunit, Adjuvanted, For Intrmusc 20528 Refused 01/29/2019 Tdap (Tetanus, diphtheria & acel. pertussis) Adacel or Boostrix 93472 Refused 01/29/2019 Pneumococcal Conjugate-Pr evnar 13 Vital [...] H/L Range N ote CBC W/Diff 02/18/2023 [facility]. [address] [place] [address] [phone] WBC 7.6 10^3/M3 3.1-9.2 RBC 4.19 10^6/M3 3.70-5.50 HGB 12.2 GR/DL 11.5-16.1 HCT 36.6 % 34.5-47.8 MCV 87.5 CUMICR 82.6-95.8 MCH 29.1 PICOGR 27.9-32.9 MCHC 33.3 % 32.6-35.4 RDW 14.9 % High 11.4-14.6 PLT 225 10^3/M3 140-350 MPV 8.8 CUMICR 7.0-10.6 %Neut 57.1 % 40.0-75.0 %Lymph 29.4 % 17.0-45.0 %[place] 8.6 % 1.0-11.0 %Eos 3.8 % 0.0-6.0 %Baso 1.1 % 0.0-2.0 #Neut 4.4 10^3/M3 1.5-8.0 #Lymph 2.2 10^3/M3 0.8-3.2 #Henderson 0.7 10^3/M3 0.0-0.8 #Eos 0.3 10^3/m3 0.0-0.4 #Baso 0.1 10^3/m3 0.0-0.2 Comp. Met 02/18/2023 [facility]. [address] [place] [address] [phone] Glucose 96 mg/dL 70-110 BUN 18 mg/dL [...] 2.0-3.4 GFR 72 ML/MIN/1.73SQM >60 Lipid 02/18/2023 [facility]. [address] [place] [address] [phone] Cholesterol 164 mg/dL 0-200 1 Triglyceride 79 mg/dL 0-150 2 HDLD 62 mg/dL See Comment 3 Measured LDL 99 mg/dL 0-130 4 Calc VLDL 15.8 mg/dL See Comment 5 Chol/HDL 2.6 RATIO See Comment 6 Non-HDL 102 mg/dL See Comment 7 Laboratory test finding 02/18/2023 [facility]. [address] [place] [address] [phone] Vitd-25Oh 77 ng/mL 30-100 VB12 411 pg/mL 230-1050 BMP 11/27/2022 [facility]. 1 [place], [place] [id number] [phone] Glucose 95 mg/dL 70-110 BUN 14 mg/dL 6-25 Creatinine 0.8 mg/dL 0.5-1.2 Sodium 136 mEq/L 135-145 Potassium 4.0 mEq/L 3.5-5.0 Chloride 97 mEq/L 95-107 Co-2 29 mEq/L 24-31 Calcium 9.8 mg/dL 8.5-10.6 GFR 72 >60 BMP 11/15/2022 [facility]. 1 [place], [place] [address] [phone] Glucose 118 mg/dL High 70-110 BUN 14 [...] LDL Target Procedures Date Code Description Status 04/26/2023 17129 Therapy Proc, Neuromuscular Reeducation Of Movement Completed 04/26/2023 71197 Manual Butadiene Converter Utility Operator 1/> Area 15 Min Each Region Completed 04/26/2023 19821 Hot/Cold Pack Completed 04/26/2023 77770 Therapy Proc 1/> Area 15Min Ea Completed 04/24/2023 64831 Manual Butadiene Converter Utility Operator 1/> Area 15 Min Each Region Completed 04/24/2023 08760 Therapy Proc, Neuromuscular Reeducation Of Movement Completed 04/24/2023 20270 Therapy Proc 1/> Area 15Min Ea Completed 04/22/2023 78923 Manual Butadiene Converter Utility Operator 1/> Area 15 Min Each Region Completed 04/22/2023 07232 Therapy Proc, Neuromuscular Reeducation Of Movement Completed 04/22/2023 55676 Therapy Proc 1/> Area 15Min Ea Completed 04/22/2023 93101 Hot/Cold Pack Completed 04/19/2023 08317 Manual Butadiene Converter Utility Operator 1/> Area 15 Min Each Region Completed 04/19/2023 28949 Hot/Cold Pack Completed 04/19/2023 31501 Therapy Proc 1/> Area 15Min Ea Completed 04/19/2023 79914 Therapy Proc, Neuromuscular Reeducation Of Movement Completed 04/18/2023 72183 Manual Butadiene Converter Utility Operator 1/> Area 15 Min Each Region Completed 04/18/2023 24686 Therapy Proc, Neuromuscular Reeducation Of Movement Completed 04/18/2023 32315 Therapy Proc 1/> Area 15Min Ea Completed 04/15/2023 04652 Manual Butadiene Converter Utility Operator 1/> Area 15 Min Each Region Completed 04/15/2023 28504 Hot/Cold Pack Completed 04/15/2023 80667 Therapy Proc 1/> Area 15Min Ea Completed 04/15/2023 77890 Therapy Proc, Neuromuscular Reeducation Of Movement Completed 04/12/2023 77718 Manual Butadiene Converter Utility Operator 1/> Area 15 Min Each Region Completed 04/12/2023 65521 Therapy Proc, Neuromuscular Reeducation Of Movement Completed 04/12/2023 08732 Therapy Proc 1/> Area 15Min Ea Completed 04/12/2023 43568 Hot/Cold Pack Completed 04/10/2023 88217 Manual Butadiene Converter Utility Operator 1/> Area 15 Min Each Region Completed 04/10/2023 58872 Therapy Proc, Neuromuscular Reeducation Of Movement Completed 04/10/2023 01032 Therapy Proc 1/> Area 15Min Ea Completed 04/08/2023 83347 Manual Butadiene Converter Utility Operator 1/> Area 15 Min Each Region Completed 04/08/2023 12913 Therapy Proc, Neuromuscular Reeducation Of Movement Completed 04/08/2023 93477 Therapy Proc 1/> Area 15Min Ea Completed 04/05/2023 04904 Therapy Proc 1/> Area 15Min Ea Completed 04/05/2023 74323 Manual Butadiene Converter Utility Operator 1/> Area 15 Min Each Region Completed 04/05/2023 84811 Therapy Proc, Neuromuscular Reeducation Of Movement Completed 04/03/2023 48532 Manual Butadiene Converter Utility Operator 1/> Area 15 Min Each Region Completed 04/03/2023 33302 Therapy Proc, Neuromuscular Reeducation Of Movement Completed 04/03/2023 74809 Therapy Proc 1/> Area 15Min Ea Completed 04/01/2023 86962 Manual Butadiene Converter Utility Operator 1/> Area 15 Min Each Region Completed 04/01/2023 26291 Therapy Proc, Neuromuscular Reeducation Of Movement Completed 04/01/2023 36184 Therapy Proc 1/> Area 15Min Ea Completed 03/29/2023 73688 Therapy Proc, Neuromuscular Reeducation Of Movement Completed 03/29/2023 70032 Therapy Proc 1/> Area 15Min Ea Completed 03/29/2023 42508 Manual Butadiene Converter Utility Operator 1/> Area 15 Min Each Region Completed 03/27/2023 10088 Manual Butadiene Converter Utility Operator 1/> Area 15 Min Each Region Completed 03/27/2023 23636 Therapy Proc, Neuromuscular Reeducation Of Movement Completed 03/27/2023 24698 Therapy Proc 1/> Area 15Min Ea Completed 03/25/2023 62222 Manual Butadiene Converter Utility Operator 1/> Area 15 Min Each Region Completed 03/25/2023 14798 Therapy Proc, Neuromuscular Reeducation Of Movement Completed 03/25/2023 49427 Therapy Proc 1/> Area 15Min Ea Completed 03/22/2023 90700 Manual Butadiene Converter Utility Operator 1/> Area 15 Min Each Region Completed 03/22/2023 68771 Therapy Proc 1/> Area 15Min Ea Completed 03/22/2023 69013 Therapy Proc, Neuromuscular Reeducation Of Movement Completed 03/20/2023 80374 Manual Butadiene Converter Utility Operator 1/> Area 15 Min Each Region Completed 03/20/2023 48658 Therapy Proc, Neuromuscular Reeducation Of Movement Completed 03/20/2023 90902 Therapy Proc 1/> Area 15Min Ea Completed 03/18/2023 94084 Manual Butadiene Converter Utility Operator 1/> Area 15 Min Each Region Completed 03/18/2023 80006 Therapy Proc, Neuromuscular Reeducation Of Movement Completed 03/18/2023 85747 Therapy Proc 1/> Area 15Min Ea Completed 03/15/2023 22888 Manual Butadiene Converter Utility Operator 1/> Area 15 Min Each Region Completed 03/15/2023 98251 Therapy Proc, Neuromuscular Reeducation Of Movement Completed 03/15/2023 14950 Therapy Proc 1/> Area 15Min Ea Completed 03/13/2023 30916 Physical Therapy Evaluation Moderate Complexity Completed 03/13/2023 41608 Manual Butadiene Converter Utility Operator 1/> Area 15 Min Each Region Completed 03/13/2023 44962 Therapy Proc 1/> Area 15Min Ea Completed 02/18/2023 16955 Venipuncture Routine Complet ed 11/27/2022 46630 Venipuncture Routine Complet ed 11/15/2022 91961 Venipuncture Routine Complet ed Medical Devices Description No Information Available Encounters Type Date Location Provider Dx Diagnosis Office Visit 02/22/2023 10:30a Jonatan Almodovar, I10 Essential (pr imary) hypertension 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 F41.1 Generalized anxiety disorder M15.0 Primary generalized (osteo)arthritis Assessments Date Code Description Provider 04/26/2023 R26.2 Difficulty in wa [place]king, not elsewhere classified Aki Garcia DPT 04/26/2023 M25.511 Pain in right shoulder Oziel Garcia DPT 04/24/2023 R26.2 Difficulty in wa [place]king, not elsewhere classified Aki Garcia DPT 04/24/2023 M25.511 Pain in right shoulder Oziel Garcia DPT 04/22/2023 R26.2 Difficulty in wa lking, [...] DPT 02/22/2023 I10 Essential (primary) hyperten vickie Daswon Almodovar, DO 02/22/2023 K21.9 Gastro-esophagea l reflux 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 Dawson Almodovar, DO 02/22/2023 F41.1 Generalized anxiety disorder Dawson Almodovar, DO 02/22/2023 M15.0 Primary generalized (osteo)a rthritis Dawson Almodovar, DO 02/18/2023 I10 Essential (primary) hyperten vickie Dawson Almodovar, DO 02/18/2023 I10 Essential (primary) hyperten vickie [facility] - [place] 02/18/2023 E55.9 Vitamin D deficiency, unspec ified Dawson Almodovar, DO 02/18/2023 E55.9 Vitamin D deficiency, unspec ified Lab - [place] 02/18/2023 E53.8 Deficiency of ot her specified B group vitamins Dawson Almodovar, DO 02/18/2023 E53.8 Deficiency of ot her specified B group vitamins Lab - [place] 11/27/2022 R60.0 Localized edema Dawson A. Olil or, DO 11/27/2022 R60.0 Localized edema Lab [place] 11/27/2022 I10 Essential (primary) hyperten vickie Almodovar, DO 11/27/2022 I10 Essential (primary) hyperten vickie [facility] - [place] 11/15/2022 R60.0 Localized edema Dawson A. Olimagdalene or, DO 11/15/2022 R60.0 Localized edema Lab - [place] 11/15/2022 I10 Essential (primary) hyperten vickie Dawson Almodovar, DO 11/15/2022 I10 Essential (primary) hypertdania johnston [facility] - [place] Plan of Treatment Future Appointment(s):* 09/06/2023 10:30 am - Dawson Almodovar DO at [place] * 08/28/2023 10:30 am - [facility] [place] Functional Status Description No Information Available Mental Status Description No Information Available Referrals Description No Information Available"
--- OUTSIDE RECORDS SUMMARY | 2023-10-11 13:22 | External Medical Summary | Continuity of Care Document ---
Author Name AKI GARCIA DPT Address [address] [address] Phone [phone] Organization [facility], Address [address] [place] [address] Phone [phone] Problems Active Problems Provider Date Essential hypertension [...] SIG Qnty Indications Order ing Provider Date Shhbkukzov02sy Tablets 2 tablets by mouth every day 30tabs R60.0 Fior Rodriguez MD, PhD 10/05/2022 Multi + [place]-3 Adult GummiesChewtabs 1 by mouth every day Dawson Almodovar DO 08/08/2022 Vitamin B ComplexTablets 1 by mouth every day Dawson Almodovar DO 08/08/2022 Losartan Potassium/Hydrochlorothi [id number] Tablets 1 by mouth every day 90tabs I10 Dawson Almodovar, DO 03/21/2020 Juice Plus Fibre` Dawson Almodovar, DO 02/19/2018 Aspirin Adult Low Accv42bd Tablets DR 1 by mouth every day Unknown Citalopram Wbjzvuclkilv42nv Tablets 1 by mouth every day 90tabs F41.1 Dawson Almodovar, DO Vitamin D3 Maximum Krijonff228uup (5000 Ut) Capsules 1 by mouth once daily Unknown Immunizations CPT Code Status Date Vaccine Lot # [id number] Given 07/14/2009 Pneumococcal Vaccine/Pneu movax 23 22295 Refused 10/19/2022 Shingrix 18770 Refused 08/08/2022 Pneumococcal Conjugate-Pr evnar 20 32816 Refused 08/08/2022 Influenza Vac, Split, Preservative Free High Dose Age 65 & > 15914 Refused 04/20/2022 Moderna Sars-Co v-2 (Cov-19) vacc,100 mcg/ 0.5 mL 12Y+EMR Doc Only 94189 Refused 10/16/2021 Influenza Virus Vaccine, Quadrivalent (Cciiv4), Derived From Cell 51606 Refused 10/16/2021 Shingrix 37411 Refused 10/16/2021 Pneumococcal Conjugate-Pr evnar 13 47423 Refused 03/20/2021 Pfizer Sars-Cov -2 (Cov-19) vacc 30mcg/0.3ML 12Y+ EMR Doc Only 94228 Refused 04/17/2019 Influenza Vacci ne, Inactivated, Subunit, Adjuvanted, For Intrmusc 44753 Refused 01/29/2019 Tdap (Tetanus, diphtheria & acel. pertussis) Adacel or Boostrix 64549 Refused 01/29/2019 Pneumococcal Conjugate-Pr evnar 13 Vital [...] H/L Range N ote CBC W/Diff 02/18/2023 [facility]. [address] [place] [address] [phone] WBC 7.6 10^3/M3 3.1-9.2 RBC 4.19 10^6/M3 3.70-5.50 HGB 12.2 GR/DL 11.5-16.1 HCT 36.6 % 34.5-47.8 MCV 87.5 CUMICR 82.6-95.8 MCH 29.1 PICOGR 27.9-32.9 MCHC 33.3 % 32.6-35.4 RDW 14.9 % High 11.4-14.6 PLT 225 10^3/M3 140-350 MPV 8.8 CUMICR 7.0-10.6 %Neut 57.1 % 40.0-75.0 %Lymph 29.4 % 17.0-45.0 %[place] 8.6 % 1.0-11.0 %Eos 3.8 % 0.0-6.0 %Baso 1.1 % 0.0-2.0 #Neut 4.4 10^3/M3 1.5-8.0 #Lymph 2.2 10^3/M3 0.8-3.2 #[place] 0.7 10^3/M3 0.0-0.8 #Eos 0.3 10^3/m3 0.0-0.4 #Baso 0.1 10^3/m3 0.0-0.2 Comp. Met 02/18/2023 [facility]. [address] [place] [address] [phone] Glucose 96 mg/dL 70-110 BUN 18 mg/dL [...] 2.0-3.4 GFR 72 ML/MIN/1.73SQM >60 Lipid 02/18/2023 [facility]. [address] [place] [address] [phone] Cholesterol 164 mg/dL 0-200 1 Triglyceride 79 mg/dL 0-150 2 HDLD 62 mg/dL See Comment 3 Measured LDL 99 mg/dL 0-130 4 Calc VLDL 15.8 mg/dL See Comment 5 Chol/HDL 2.6 RATIO See Comment 6 Non-HDL 102 mg/dL See Comment 7 Laboratory test finding 02/18/2023 [facility]. [address] [place] [address] [phone] Vitd-25Oh 77 ng/mL 30-100 VB12 411 pg/mL 230-1050 BMP 11/27/2022 [facility]. 1 [place], [place] [id number] [phone] Glucose 95 mg/dL 70-110 BUN 14 mg/dL 6-25 Creatinine 0.8 mg/dL 0.5-1.2 Sodium 136 mEq/L 135-145 Potassium 4.0 mEq/L 3.5-5.0 Chloride 97 mEq/L 95-107 Co-2 29 mEq/L 24-31 Calcium 9.8 mg/dL 8.5-10.6 GFR 72 >60 BMP 11/15/2022 [facility]. 1 [place], [place] [id number] [phone] Glucose 118 mg/dL High 70-110 BUN 14 [...] Target Procedures Date Code Description Status 05/10/2023 29497 Manual Electrical Control Assembler 1/> Area 15 Min Each Region Completed 05/10/2023 06069 Therapeutic Activities Direc t, Each 15 Minutes Completed 05/10/2023 57944 Hot/Cold Pack Completed 05/10/2023 57280 Therapy Proc, Neuromuscular Reeducation Of Movement Completed 05/10/2023 48352 Therapy Proc 1/> Area 15Min Ea Completed 05/08/2023 87728 Therapeutic Activities Direc t, Each 15 Minutes Completed 05/08/2023 85407 Manual Electrical Control Assembler 1/> Area 15 Min Each Region Completed 05/08/2023 93379 Therapy Proc, Neuromuscular Reeducation Of Movement Completed 05/08/2023 01131 Therapy Proc 1/> Area 15Min Ea Completed 05/08/2023 89476 Hot/Cold Pack Completed 05/06/2023 36362 Hot/Cold Pack Completed 05/06/2023 75902 Therapy Proc 1/> Area 15Min Ea Completed 05/06/2023 96029 Therapy Proc, Neuromuscular Reeducation Of Movement Completed 05/06/2023 49923 Manual Electrical Control Assembler 1/> Area 15 Min Each Region Completed 05/06/2023 66768 Therapeutic Activities Direc t, Each 15 Minutes Completed 05/02/2023 85040 Therapeutic Activities Direc t, Each 15 Minutes Completed 05/02/2023 18828 Manual Electrical Control Assembler 1/> Area 15 Min Each Region Completed 05/02/2023 65835 Therapy Proc, Neuromuscular Reeducation Of Movement Completed 05/02/2023 93190 Therapy Proc 1/> Area 15Min Ea Completed 04/30/2023 87471 Manual Electrical Control Assembler 1/> Area 15 Min Each Region Completed 04/30/2023 43747 Therapy Proc, Neuromuscular Reeducation Of Movement Completed 04/30/2023 73082 Therapy Proc 1/> Area 15Min Ea Completed 04/30/2023 69030 Hot/Cold Pack Completed 04/24/2023 63264 Manual Electrical Control Assembler 1/> Area 15 Min Each Region Completed 04/24/2023 13579 Therapy Proc 1/> Area 15Min Ea Completed 04/24/2023 31867 Therapy Proc, Neuromuscular Reeducation Of Movement Completed 04/22/2023 69366 Manual Electrical Control Assembler 1/> Area 15 Min Each Region Completed 04/22/2023 89641 Therapy Proc, Neuromuscular Reeducation Of Movement Completed 04/22/2023 87622 Therapy Proc 1/> Area 15Min Ea Completed 04/22/2023 69028 Hot/Cold Pack Completed 04/19/2023 18616 Manual Electrical Control Assembler 1/> Area 15 Min Each Region Completed 04/19/2023 71866 Therapy Proc, Neuromuscular Reeducation Of Movement Completed 04/19/2023 53495 Therapy Proc 1/> Area 15Min Ea Completed 04/19/2023 36080 Hot/Cold Pack Completed 04/18/2023 06413 Manual Electrical Control Assembler 1/> Area 15 Min Each Region Completed 04/18/2023 43381 Therapy Proc 1/> Area 15Min Ea Completed 04/18/2023 04178 Therapy Proc, Neuromuscular Reeducation Of Movement Completed 04/15/2023 24781 Manual Electrical Control Assembler 1/> Area 15 Min Each Region Completed 04/15/2023 47368 Therapy Proc, Neuromuscular Reeducation Of Movement Completed 04/15/2023 04020 Therapy Proc 1/> Area 15Min Ea Completed 04/15/2023 41286 Hot/Cold Pack Completed 04/12/2023 65562 Hot/Cold Pack Completed 04/12/2023 47202 Therapy Proc 1/> Area 15Min Ea Completed 04/12/2023 21451 Manual Electrical Control Assembler 1/> Area 15 Min Each Region Completed 04/12/2023 33470 Therapy Proc, Neuromuscular Reeducation Of Movement Completed 04/10/2023 99796 Therapy Proc, Neuromuscular Reeducation Of Movement Completed 04/10/2023 44418 Therapy Proc 1/> Area 15Min Ea Completed 04/10/2023 02092 Manual Electrical Control Assembler 1/> Area 15 Min Each Region Completed 04/08/2023 82368 Manual Electrical Control Assembler 1/> Area 15 Min Each Region Completed 04/08/2023 06297 Therapy Proc, Neuromuscular Reeducation Of Movement Completed 04/08/2023 96427 Therapy Proc 1/> Area 15Min Ea Completed 04/05/2023 67948 Manual Electrical Control Assembler 1/> Area 15 Min Each Region Completed 04/05/2023 37183 Therapy Proc, Neuromuscular Reeducation Of Movement Completed 04/05/2023 35913 Therapy Proc 1/> Area 15Min Ea Completed 04/03/2023 19180 Manual Electrical Control Assembler 1/> Area 15 Min Each Region Completed 04/03/2023 75872 Therapy Proc 1/> Area 15Min Ea Completed 04/03/2023 68884 Therapy Proc, Neuromuscular Reeducation Of Movement Completed 04/01/2023 19723 Manual Electrical Control Assembler 1/> Area 15 Min Each Region Completed 04/01/2023 70485 Therapy Proc, Neuromuscular Reeducation Of Movement Completed 04/01/2023 46191 Therapy Proc 1/> Area 15Min Ea Completed 03/29/2023 68156 Manual Electrical Control Assembler 1/> Area 15 Min Each Region Completed 03/29/2023 03189 Therapy Proc, Neuromuscular Reeducation Of Movement Completed 03/29/2023 39992 Therapy Proc 1/> Area 15Min Ea Completed 03/27/2023 95144 Therapy Proc 1/> Area 15Min Ea Completed 03/27/2023 48238 Manual Electrical Control Assembler 1/> Area 15 Min Each Region Completed 03/27/2023 99044 Therapy Proc, Neuromuscular Reeducation Of Movement Completed 03/25/2023 82814 Manual Electrical Control Assembler 1/> Area 15 Min Each Region Completed 03/25/2023 54824 Therapy Proc, Neuromuscular Reeducation Of Movement Completed 03/25/2023 77671 Therapy Proc 1/> Area 15Min Ea Completed 03/22/2023 96564 Manual Electrical Control Assembler 1/> Area 15 Min Each Region Completed 03/22/2023 82648 Therapy Proc, Neuromuscular Reeducation Of Movement Completed 03/22/2023 45020 Therapy Proc 1/> Area 15Min Ea Completed 03/20/2023 67418 Manual Electrical Control Assembler 1/> Area 15 Min Each Region Completed 03/20/2023 50780 Therapy Proc, Neuromuscular Reeducation Of Movement Completed 03/20/2023 95065 Therapy Proc 1/> Area 15Min Ea Completed 03/18/2023 05795 Manual Electrical Control Assembler 1/> Area 15 Min Each Region Completed 03/18/2023 56274 Therapy Proc 1/> Area 15Min Ea Completed 03/18/2023 31426 Therapy Proc, Neuromuscular Reeducation Of Movement Completed 03/15/2023 95970 Manual Electrical Control Assembler 1/> Area 15 Min Each Region Completed 03/15/2023 15248 Therapy Proc, Neuromuscular Reeducation Of Movement Completed 03/15/2023 42593 Therapy Proc 1/> Area 15Min Ea Completed 03/13/2023 12441 Physical Therapy Evaluation Moderate Complexity Completed 03/13/2023 97181 Manual Electrical Control Assembler 1/> Area 15 Min Each Region Completed 03/13/2023 97500 Therapy Proc 1/> Area 15Min Ea Completed 02/18/2023 49220 Venipuncture Routine Complet ed 11/27/2022 93302 Venipuncture Routine Complet ed 11/15/2022 04025 Venipuncture Routine Complet ed Medical Devices Description No Information Available Encounters Type Date Location Provider Dx Diagnosis Office Visit 02/22/2023 10[facility], I10 Essential (pr imary) hypertension K21.9 Gastro-esophageal [...] lking, not elsewhere classified kAi Garcia, DPT 03/27/2023 M25.511 Pain in right [...] I10 Essential (primary) hyperten vickie [facility] - [place] 02/18/2023 E55.9 Vitamin D deficiency, unspec ified Dawson Almodovar, DO 02/18/2023 E55.9 Vitamin D deficiency, unspec ified Lab - [place] 02/18/2023 E53.8 Deficiency of ot her specified B group vitamins Dawson Almodovar, DO 02/18/2023 E53.8 Deficiency of ot her specified B group vitamins Lab - [place] 11/27/2022 R60.0 Localized edema Dawson A. Tayl or, DO 11/27/2022 R60.0 Localized edema Lab [place] 11/27/2022 I10 Essential (primary) [place]ustindania [place] Dawson Almodovar, DO 11/27/2022 I10 Essential (primary) hypertdania johnston Lab - [place] 11/15/2022 R60.0 Localized edema Dawson A. Tayl or, DO 11/15/2022 R60.0 Localized edema Lab - [place] 11/15/2022 I10 Essential (primary) hypertdania johnston Dawson Almodovar, DO 11/15/2022 I10 Essential (primary) hypertdania johnston Lab - [place] Plan of Treatment Future Appointment(s):* 09/06/2023 10:30 am - Dawson lAmodovar DO at [place] * 08/28/2023 10:30 am - [facility] [place] Functional Status Description No Information Available Mental Status Description No Information Available Referrals Description No Information Available"
--- OUTSIDE RECORDS SUMMARY | 2023-10-11 13:23 | External Medical Summary | Continuity of Care Document ---
Author Name AKI GARCIA DPT Address [address] [address] Phone [phone] Organization [facility], Address [address] [place] [address] Phone [phone] Problems Active Problems Provider Date Essential hypertension [...] SIG Qnty Indications Order ing Provider Date Vtjaqlrflr06zg Tablets 2 tablets by mouth every day 30tabs R60.0 Fior Rodriguez MD, PhD 10/05/2022 Multi + [place]-3 Adult GummiesChewtabs 1 by mouth every day Dawson Almodovar DO 08/08/2022 Vitamin B ComplexTablets 1 by mouth every day Dawson Almodovar DO 08/08/2022 Losartan Potassium/Hydrochlorothi vfgze905-92bd Tablets 1 by mouth every day 90tabs I10 Dawson Almodovar, DO 03/21/2020 Juice Plus Fibre` Dawson Almodovar, DO 02/19/2018 Aspirin Adult Low Vrpb20qa Tablets DR 1 by mouth every day Unknown Citalopram Uirmyyugwpug88hy Tablets 1 by mouth every day 90tabs F41.1 Dawson Almodovar, DO Vitamin D3 Maximum Logqcyus063qja (5000 Ut) Capsules 1 by mouth once daily Unknown Immunizations CPT Code Status Date Vaccine Lot # [id number] Given 07/14/2009 Pneumococcal Vaccine/Pneu movax 23 49309 Refused 10/19/2022 Shingrix 21126 Refused 08/08/2022 Pneumococcal Conjugate-Pr evnar 20 35223 Refused 08/08/2022 Influenza Vac, Split, Preservative Free High Dose Age 65 & > 96974 Refused 04/20/2022 Moderna Sars-Co v-2 (Covid-19) vaccine, 100 mcg/ 0.5 mL 12Y+ 45981 Refused 10/16/2021 Influenza Virus Vaccine, Quadrivalent (Cciiv4), Derived From Cell 23594 Refused 10/16/2021 Shingrix 99018 Refused 10/16/2021 Pneumococcal Conjugate-Pr evnar 13 73103 Refused 03/20/2021 Pfizer Sars-Cov -2 (Covid-19) vaccine, 30mcg/0.3ML 12Y+ 06319 Refused 04/17/2019 Influenza Vacci ne, Inactivated, Subunit, Adjuvanted, For Intrmusc 97498 Refused 01/29/2019 Tdap (Tetanus, diphtheria & acel. pertussis) Adacel or Boostrix 15845 Refused 01/29/2019 Pneumococcal Conjugate-Pr evnar 13 Vital [...] H/L Range N ote CBC W/Diff 02/18/2023 [facility]. 1 [place] [address] [phone] WBC 7.6 10^3/M3 3.1-9.2 RBC 4.19 10^6/M3 3.70-5.50 HGB 12.2 GR/DL 11.5-16.1 HCT 36.6 % 34.5-47.8 MCV 87.5 CUMICR 82.6-95.8 MCH 29.1 PICOGR 27.9-32.9 MCHC 33.3 % 32.6-35.4 RDW 14.9 % High 11.4-14.6 PLT 225 10^3/M3 140-350 MPV 8.8 CUMICR 7.0-10.6 %Neut 57.1 % 40.0-75.0 %Lymph 29.4 % 17.0-45.0 %[place] 8.6 % 1.0-11.0 %Eos 3.8 % 0.0-6.0 %Baso 1.1 % 0.0-2.0 #Neut 4.4 10^3/M3 1.5-8.0 #Lymph 2.2 10^3/M3 0.8-3.2 #[place] 0.7 10^3/M3 0.0-0.8 #Eos 0.3 10^3/m3 0.0-0.4 #Baso 0.1 10^3/m3 0.0-0.2 Comp. Met 02/18/2023 [facility]. 1 [place], [place] [id number] [phone] Glucose 96 mg/dL 70-110 BUN 18 mg/dL [...] 2.0-3.4 GFR 72 ML/MIN/1.73SQM >60 Lipid 02/18/2023 [facility]. [address] [place] [address] [phone] Cholesterol 164 mg/dL 0-200 1 Triglyceride 79 mg/dL 0-150 2 HDLD 62 mg/dL See Comment 3 Measured LDL 99 mg/dL 0-130 4 Calc VLDL 15.8 mg/dL See Comment 5 Chol/HDL 2.6 RATIO See Comment 6 Non-HDL 102 mg/dL See Comment 7 Laboratory test finding 02/18/2023 [facility]. [address] [place] [address] [phone] Vitd-25Oh 77 ng/mL 30-100 VB12 411 pg/mL 230-1050 BMP 11/27/2022 [facility]. [address] [place] [address] [phone] Glucose 95 mg/dL 70-110 BUN 14 mg/dL 6-25 Creatinine 0.8 mg/dL 0.5-1.2 Sodium 136 mEq/L 135-145 Potassium 4.0 mEq/L 3.5-5.0 Chloride 97 mEq/L 95-107 Co-2 29 mEq/L 24-31 Calcium 9.8 mg/dL 8.5-10.6 GFR 72 >60 BMP 11/15/2022 [facility]. [address] [place] [address] [phone] Glucose 118 mg/dL High 70-110 BUN 14 mg/dL 6-25 Creatinine 0.9 mg/dL 0.5-1.2 Sodium 134 mEq/L Low 135-145 Potassium 3.7 mEq/L 3.5-5.0 Chloride 96 mEq/L 95-107 Co-2 27 mEq/L 24-31 Calcium 10.1 mg/dL 8.5-10.6 GFR 63 >60 BMP 10/29/2022 [facility]. [address] [place] [address] [phone] Glucose 105 mg/dL 70-110 BUN 13 mg/dL 6-25 Creatinine 0.9 mg/dL 0.5-1.2 Sodium 136 mEq/L 135-145 Potassium 4.0 mEq/L 3.5-5.0 Chloride 97 mEq/L 95-107 Co-2 27 mEq/L 24-31 Calcium 9.8 mg/dL 8.5-10.6 GFR 63 >60 1 CHOLESTEROL [...] LDL Target Procedures Date Code Description Status 04/22/2023 11637 Therapy Proc, Neuromuscular Reeducation Of Movement Completed 04/22/2023 94931 Therapy Proc 1/> Area 15Min Ea Completed 04/22/2023 71722 Hot/Cold Pack Completed 04/22/2023 00870 Manual Asset Accountant 1/> Area 15 Min Each Region Completed 04/19/2023 98804 Manual Asset Accountant 1/> Area 15 Min Each Region Completed 04/19/2023 95205 Therapy Proc, Neuromuscular Reeducation Of Movement Completed 04/19/2023 68312 Therapy Proc 1/> Area 15Min Ea Completed 04/19/2023 84395 Hot/Cold Pack Completed 04/18/2023 87623 Manual Asset Accountant 1/> Area 15 Min Each Region Completed 04/18/2023 75507 Therapy Proc 1/> Area 15Min Ea Completed 04/18/2023 82802 Therapy Proc, Neuromuscular Reeducation Of Movement Completed 04/15/2023 32294 Manual Asset Accountant 1/> Area 15 Min Each Region Completed 04/15/2023 68276 Therapy Proc, Neuromuscular Reeducation Of Movement Completed 04/15/2023 23553 Therapy Proc 1/> Area 15Min Ea Completed 04/15/2023 63425 Hot/Cold Pack Completed 04/12/2023 05229 Therapy Proc, Neuromuscular Reeducation Of Movement Completed 04/12/2023 07895 Hot/Cold Pack Completed 04/12/2023 23286 Therapy Proc 1/> Area 15Min Ea Completed 04/12/2023 02484 Manual Asset Accountant 1/> Area 15 Min Each Region Completed 04/10/2023 29763 Manual Asset Accountant 1/> Area 15 Min Each Region Completed 04/10/2023 69314 Therapy Proc, Neuromuscular Reeducation Of Movement Completed 04/10/2023 52379 Therapy Proc 1/> Area 15Min Ea Completed 04/08/2023 14605 Manual Asset Accountant 1/> Area 15 Min Each Region Completed 04/08/2023 48879 Therapy Proc, Neuromuscular Reeducation Of Movement Completed 04/08/2023 76057 Therapy Proc 1/> Area 15Min Ea Completed 04/05/2023 15080 Manual Asset Accountant 1/> Area 15 Min Each Region Completed 04/05/2023 31185 Therapy Proc, Neuromuscular Reeducation Of Movement Completed 04/05/2023 18405 Therapy Proc 1/> Area 15Min Ea Completed 04/03/2023 23351 Manual Asset Accountant 1/> Area 15 Min Each Region Completed 04/03/2023 84404 Therapy Proc, Neuromuscular Reeducation Of Movement Completed 04/03/2023 65990 Therapy Proc 1/> Area 15Min Ea Completed 04/01/2023 53625 Manual Asset Accountant 1/> Area 15 Min Each Region Completed 04/01/2023 92805 Therapy Proc 1/> Area 15Min Ea Completed 04/01/2023 60896 Therapy Proc, Neuromuscular Reeducation Of Movement Completed 03/29/2023 16931 Manual Asset Accountant 1/> Area 15 Min Each Region Completed 03/29/2023 05058 Therapy Proc, Neuromuscular Reeducation Of Movement Completed 03/29/2023 75512 Therapy Proc 1/> Area 15Min Ea Completed 03/27/2023 35605 Manual Asset Accountant 1/> Area 15 Min Each Region Completed 03/27/2023 70579 Therapy Proc, Neuromuscular Reeducation Of Movement Completed 03/27/2023 55107 Therapy Proc 1/> Area 15Min Ea Completed 03/25/2023 46704 Manual Asset Accountant 1/> Area 15 Min Each Region Completed 03/25/2023 46870 Therapy Proc, Neuromuscular Reeducation Of Movement Completed 03/25/2023 70270 Therapy Proc 1/> Area 15Min Ea Completed 03/22/2023 09304 Manual Asset Accountant 1/> Area 15 Min Each Region Completed 03/22/2023 63104 Therapy Proc, Neuromuscular Reeducation Of Movement Completed 03/22/2023 65219 Therapy Proc 1/> Area 15Min Ea Completed 03/20/2023 90718 Therapy Proc, Neuromuscular Reeducation Of Movement Completed 03/20/2023 96275 Therapy Proc 1/> Area 15Min Ea Completed 03/20/2023 29972 Manual Asset Accountant 1/> Area 15 Min Each Region Completed 03/18/2023 01276 Manual Asset Accountant 1/> Area 15 Min Each Region Completed 03/18/2023 32228 Therapy Proc, Neuromuscular Reeducation Of Movement Completed 03/18/2023 28818 Therapy Proc 1/> Area 15Min Ea Completed 03/15/2023 73493 Manual Asset Accountant 1/> Area 15 Min Each Region Completed 03/15/2023 84654 Therapy Proc, Neuromuscular Reeducation Of Movement Completed 03/15/2023 55959 Therapy Proc 1/> Area 15Min Ea Completed 03/13/2023 30376 Physical Therapy Evaluation Moderate Complexity Completed 03/13/2023 86672 Manual Asset Accountant 1/> Area 15 Min Each Region Completed 03/13/2023 91211 Therapy Proc 1/> Area 15Min Ea Completed 02/18/2023 35935 Venipuncture Routine Complet ed 11/27/2022 64088 Venipuncture Routine Complet ed 11/15/2022 55659 Venipuncture Routine Complet ed 10/29/2022 31366 Venipuncture Routine Complet ed Medical Devices Description No Information Available Encounters Type Date Location Provider Dx Diagnosis Office Visit 02/22/2023 10:30a Jonatan Almodovar DO I10 Essential (pr imary) hypertension 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 F41.1 Generalized anxiety disorder M15.0 Primary generalized (osteo)arthritis Assessments Date Code Description Provider 04/22/2023 R26.2 Difficulty in wa lking, not [...] I10 Essential (primary) hyperten vickie Lab - [place] 02/18/2023 E55.9 Vitamin D deficiency, unspec ified Dawson Almodovar, DO 02/18/2023 E55.9 Vitamin D deficiency, unspec ified Lab - [place] 02/18/2023 E53.8 Deficiency of ot her specified B group vitamins Dawson Almodovar, DO 02/18/2023 E53.8 Deficiency of ot her specified B group vitamins Lab - [place] 11/27/2022 R60.0 Localized edema Dawson Garcia or, DO 11/27/2022 R60.0 Localized edema Lab - [place] 11/27/2022 I10 Essential (primary) hyperten vickie Dawson Almodovar, DO 11/27/2022 I10 Essential (primary) hyperten vickie Lab - [place] 11/15/2022 R60.0 Localized edema Dawson A. Tayl or, DO 11/15/2022 R60.0 Localized edema Lab - [place] 11/15/2022 I10 Essential (primary) hyperten vickie Almodovar, DO 11/15/2022 I10 Essential (primary) hyperten vickie Lab - [place] 10/29/2022 R60.0 Localized edema Dawson A. Tayl or, DO 10/29/2022 R60.0 Localized edema Lab - [place] 10/29/2022 I10 Essential (primary) hypertdania Almodovar, DO 10/29/2022 I10 Essential (primary) hypertdania johnston Lab - [place] Plan of Treatment Future Appointment(s):* 09/06/2023 10:30 am - Dawson Almodovar DO at [place] * 08/28/2023 10:30 am - Lab [place] Functional Status Description No Information Available Mental Status Description No Information Available Referrals Description No Information Available"
--- OUTSIDE RECORDS SUMMARY | 2023-10-11 13:23 | External Medical Summary | Continuity of Care Document ---
Author Name AKI GARCIA DPT Address [address] [address] Phone [phone] Organization [facility], Address [address] [place] [address] Phone [phone] Problems Active Problems Provider Date Essential hypertension [...] SIG Qnty Indications Order ing Provider Date Fnnculleah06te Tablets 2 tablets by mouth every day 30tabs R60.0 Fior Rodriguez MD, PhD 10/05/2022 Multi + [place]-3 Adult GummiesChewtabs 1 by mouth every day Dawson Almodovar DO 08/08/2022 Vitamin B ComplexTablets 1 by mouth every day Dawson Almodovar DO 08/08/2022 Losartan Potassium/Hydrochlorothi [id number] Tablets 1 by mouth every day 90tabs I10 Dawson Almodovar, DO 03/21/2020 Juice Plus Fibre` Dawson Almodovar, DO 02/19/2018 Aspirin Adult Low Yhja56ie Tablets DR 1 by mouth every day Unknown Citalopram Nbpkzixbatyt25qs Tablets 1 by mouth every day 90tabs F41.1 Dawson Almodovar, DO Vitamin D3 Maximum [id number] (5000 Ut) Capsules 1 by mouth once daily Unknown Immunizations CPT Code Status Date Vaccine Lot # [id number] Given 07/14/2009 Pneumococcal Vaccine/Pneu movax 23 95676 Refused 10/19/2022 Shingrix 15341 Refused 08/08/2022 Pneumococcal Conjugate-Pr evnar 20 35857 Refused 08/08/2022 Influenza Vac, Split, Preservative Free High Dose Age 65 & > 09543 Refused 04/20/2022 Moderna Sars-Co v-2 (Covid-19) vaccine, 100 mcg/ 0.5 mL 12Y+ 99351 Refused 10/16/2021 Influenza Virus Vaccine, Quadrivalent (Cciiv4), Derived From Cell 46832 Refused 10/16/2021 Shingrix 73741 Refused 10/16/2021 Pneumococcal Conjugate-Pr evnar 13 63975 Refused 03/20/2021 Pfizer Sars-Cov -2 (Covid-19) vaccine, 30mcg/0.3ML 12Y+ 95998 Refused 04/17/2019 Influenza Vacci ne, Inactivated, Subunit, Adjuvanted, For Intrmusc 77926 Refused 01/29/2019 Tdap (Tetanus, diphtheria & acel. pertussis) Adacel or Boostrix 52389 Refused 01/29/2019 Pneumococcal Conjugate-Pr evnar 13 Vital [...] H/L Range N ote CBC W/Diff 02/18/2023 [facility]. [address] [place] [address] [phone] WBC 7.6 10^3/M3 3.1-9.2 RBC 4.19 10^6/M3 3.70-5.50 HGB 12.2 GR/DL 11.5-16.1 HCT 36.6 % 34.5-47.8 MCV 87.5 CUMICR 82.6-95.8 MCH 29.1 PICOGR 27.9-32.9 MCHC 33.3 % 32.6-35.4 RDW 14.9 % High 11.4-14.6 PLT 225 10^3/M3 140-350 MPV 8.8 CUMICR 7.0-10.6 %Neut 57.1 % 40.0-75.0 %Lymph 29.4 % 17.0-45.0 %Lynn 8.6 % 1.0-11.0 %Eos 3.8 % 0.0-6.0 %Baso 1.1 % 0.0-2.0 #Neut 4.4 10^3/M3 1.5-8.0 #Lymph 2.2 10^3/M3 0.8-3.2 #Lynn 0.7 10^3/M3 0.0-0.8 #Eos 0.3 10^3/m3 0.0-0.4 #Baso 0.1 10^3/m3 0.0-0.2 Comp. Met 02/18/2023 [facility]. [address] [place], [place] [id number] [phone] Glucose 96 mg/dL 70-110 BUN 18 mg/dL [...] 2.0-3.4 GFR 72 ML/MIN/1.73SQM >60 Lipid 02/18/2023 [facility] [address] [place] [address] [phone] Cholesterol 164 mg/dL 0-200 1 Triglyceride 79 mg/dL 0-150 2 HDLD 62 mg/dL See Comment 3 Measured LDL 99 mg/dL 0-130 4 Calc VLDL 15.8 mg/dL See Comment 5 Chol/HDL 2.6 RATIO See Comment 6 Non-HDL 102 mg/dL See Comment 7 Laboratory test finding 02/18/2023 [facility] [address] [place] [address] [phone] Vitd-25Oh 77 ng/mL 30-100 VB12 411 pg/mL 230-1050 BMP 11/27/2022 [facility] [address] [place] [address] [phone] Glucose 95 mg/dL 70-110 BUN 14 mg/dL 6-25 Creatinine 0.8 mg/dL 0.5-1.2 Sodium 136 mEq/L 135-145 Potassium 4.0 mEq/L 3.5-5.0 Chloride 97 mEq/L 95-107 Co-2 29 mEq/L 24-31 Calcium 9.8 mg/dL 8.5-10.6 GFR 72 >60 BMP 11/15/2022 [facility] [address] [place] [address] [phone] Glucose 118 mg/dL High 70-110 BUN 14 mg/dL 6-25 Creatinine 0.9 mg/dL 0.5-1.2 Sodium 134 mEq/L Low 135-145 Potassium 3.7 mEq/L 3.5-5.0 Chloride 96 mEq/L 95-107 Co-2 27 mEq/L 24-31 Calcium 10.1 mg/dL 8.5-10.6 GFR 63 >60 BMP 10/29/2022 [facility]. [address] [place] [address] [phone] Glucose 105 mg/dL 70-110 BUN 13 mg/dL 6-25 Creatinine 0.9 mg/dL 0.5-1.2 Sodium 136 mEq/L 135-145 Potassium 4.0 mEq/L 3.5-5.0 Chloride 97 mEq/L 95-107 Co-2 27 mEq/L 24-31 Calcium 9.8 mg/dL 8.5-10.6 GFR 63 >60 BMP 10/22/2022 [facility] [address] [place] [address] [phone] Glucose 104 mg/dL 70-110 BUN 13 mg/dL 6-25 Creatinine 0.9 mg/dL 0.5-1.2 Sodium 132 mEq/L Low 135-145 Potassium 3.7 mEq/L 3.5-5.0 Chloride 93 mEq/L Low 95-107 Co-2 32 mEq/L High 24-31 Calcium 10.1 mg/dL 8.5-10.6 GFR 63 [...] LDL Target Procedures Date Code Description Status 04/12/2023 65726 Therapy Proc, Neuromuscular Reeducation Of Movement Completed 04/12/2023 37666 Manual Groundsman 1/> Area 15 Min Each Region Completed 04/12/2023 50838 Hot/Cold Pack Completed 04/12/2023 44153 Therapy Proc 1/> Area 15Min Ea Completed 04/10/2023 27132 Manual Groundsman 1/> Area 15 Min Each Region Completed 04/10/2023 53058 Therapy Proc, Neuromuscular Reeducation Of Movement Completed 04/10/2023 91808 Therapy Proc 1/> Area 15Min Ea Completed 04/08/2023 11897 Manual Groundsman 1/> Area 15 Min Each Region Completed 04/08/2023 26425 Therapy Proc, Neuromuscular Reeducation Of Movement Completed 04/08/2023 24715 Therapy Proc 1/> Area 15Min Ea Completed 04/05/2023 78996 Manual Groundsman 1/> Area 15 Min Each Region Completed 04/05/2023 14844 Therapy Proc, Neuromuscular Reeducation Of Movement Completed 04/05/2023 26507 Therapy Proc 1/> Area 15Min Ea Completed 04/03/2023 71923 Manual Groundsman 1/> Area 15 Min Each Region Completed 04/03/2023 87284 Therapy Proc 1/> Area 15Min Ea Completed 04/03/2023 97172 Therapy Proc, Neuromuscular Reeducation Of Movement Completed 04/01/2023 76746 Manual Groundsman 1/> Area 15 Min Each Region Completed 04/01/2023 36856 Therapy Proc, Neuromuscular Reeducation Of Movement Completed 04/01/2023 06287 Therapy Proc 1/> Area 15Min Ea Completed 03/29/2023 86840 Manual Groundsman 1/> Area 15 Min Each Region Completed 03/29/2023 19746 Therapy Proc, Neuromuscular Reeducation Of Movement Completed 03/29/2023 46923 Therapy Proc 1/> Area 15Min Ea Completed 03/27/2023 42562 Therapy Proc 1/> Area 15Min Ea Completed 03/27/2023 63452 Manual Groundsman 1/> Area 15 Min Each Region Completed 03/27/2023 89301 Therapy Proc, Neuromuscular Reeducation Of Movement Completed 03/25/2023 25007 Manual Groundsman 1/> Area 15 Min Each Region Completed 03/25/2023 70336 Therapy Proc, Neuromuscular Reeducation Of Movement Completed 03/25/2023 55415 Therapy Proc 1/> Area 15Min Ea Completed 03/22/2023 56164 Manual Groundsman 1/> Area 15 Min Each Region Completed 03/22/2023 33245 Therapy Proc, Neuromuscular Reeducation Of Movement Completed 03/22/2023 47423 Therapy Proc 1/> Area 15Min Ea Completed 03/20/2023 16282 Manual Groundsman 1/> Area 15 Min Each Region Completed 03/20/2023 77577 Therapy Proc, Neuromuscular Reeducation Of Movement Completed 03/20/2023 08463 Therapy Proc 1/> Area 15Min Ea Completed 03/18/2023 50785 Therapy Proc 1/> Area 15Min Ea Completed 03/18/2023 96999 Therapy Proc, Neuromuscular Reeducation Of Movement Completed 03/18/2023 35106 Manual Groundsman 1/> Area 15 Min Each Region Completed 03/15/2023 44135 Manual Groundsman 1/> Area 15 Min Each Region Completed 03/15/2023 45227 Therapy Proc, Neuromuscular Reeducation Of Movement Completed 03/15/2023 45292 Therapy Proc 1/> Area 15Min Ea Completed 03/13/2023 79661 Physical Therapy Evaluation Moderate Complexity Completed 03/13/2023 70073 Manual Groundsman 1/> Area 15 Min Each Region Completed 03/13/2023 62672 Therapy Proc 1/> Area 15Min Ea Completed 02/18/2023 27593 Venipuncture Routine Complet ed 11/27/2022 31208 Venipuncture Routine Complet ed 11/15/2022 54941 Venipuncture Routine Complet ed 10/29/2022 76357 Venipuncture Routine Complet ed 10/22/2022 G2012 Phone Evaluation/Management Physician 11-20 Mins Completed 10/22/2022 17735 Venipuncture Routine Complet ed Medical Devices Description No Information Available Encounters Type Date Location Provider Dx Diagnosis Office Visit 02/22/2023 10:30a [place] Dawson Almodovar, DO I10 Essential (pr imary) hypertension 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 F41.1 Generalized anxiety disorder M15.0 Primary generalized (osteo)arthritis Office Visit 10/22/[facility]22 [facility] MD R60.0 Localized edema Assessments Date Code Description Provider 04/12/2023 R26.2 Difficulty in wa lking, not elsewhere classified Aki Garcia DPT 04/12/2023 M25.511 Pain in right shoulder Oziel Garcia, DPT 04/10/2023 R26.2 Difficulty in wa lking, not elsewhere classified Aki Garcia DPT 04/10/2023 M25.511 Pain in right shoulder Oziel Garcai, DPT 04/08/2023 R26.2 Difficulty in wa lking, not elsewhere classified Aki Garcia DPT 04/08/2023 M25.511 Pain in right shoulder Oziel Garcia, GABRIELLET 04/05/2023 R26.2 Difficulty in wa lking, not elsewhere classified Aki Garcia DPT 04/05/2023 M25.511 Pain in right shoulder [...] I10 Essential (primary) hyperten vickie Lab - [place] 02/18/2023 E55.9 Vitamin D deficiency, unspec ified Dawson Almodovar, DO 02/18/2023 E55.9 Vitamin D deficiency, unspec ified Lab - [place] 02/18/2023 E53.8 Deficiency of ot her specified B group vitamins Dawson Almodovar, DO 02/18/2023 E53.8 Deficiency of ot her specified B group vitamins Lab - [place] 11/27/2022 R60.0 Localized edema Dawson A. Jose or, DO 11/27/2022 R60.0 Localized edema Lab - [place] 11/27/2022 I10 Essential (primary) hyperten vickie Almodovar, DO 11/27/2022 I10 Essential (primary) hyperten vickie Lab - [place] 11/15/2022 R60.0 Localized edema Dawson A. Tayl or, DO 11/15/2022 R60.0 Localized edema Lab - [place] 11/15/2022 I10 Essential (primary) hyperten vickie Almodovar, DO 11/15/2022 I10 Essential (primary) hyperten vickie Lab - [place] 10/29/2022 R60.0 Localized edema Dawson A. Tayl or, DO 10/29/2022 R60.0 Localized edema Lab - [place] 10/29/2022 I10 Essential (primary) hyperten vickie Almodovar, DO 10/29/2022 I10 Essential (primary) hyperten vickie Lab - [place] 10/22/2022 R60.0 Localized edema Dawson A. Jose or, DO 10/22/2022 R60.0 Localized edema Mayra Danay Cox MD 10/22/2022 I10 Essential (primary) hyperten vickie Almodovar DO 10/22/2022 R60.0 Localized edema Lab - [place] 10/22/2022 I10 Essential (primary) tana johnston Lab - [place] Plan of Treatment Future Appointment(s):* 09/06/2023 10:30 am - Dawson Almodovar DO at [place] * 08/28/2023 10:30 am - [facility] [place] [facility] [place] [facility] Functional Status Description No Information Available Mental Status Description No Information Available Referrals Description No Information Available"
--- OUTSIDE RECORDS SUMMARY | 2023-10-11 13:23 | External Medical Summary | Continuity of Care Document ---
Author Name AIK GARCIA DPT Address 33 [facility], [address] [place] [address] Phone [phone] Organization [facility], Address [address] [place] [address] Phone [phone] Problems Active Problems Provider Date Essential hypertension [...] SIG Qnty Indications Order ing Provider Date Mersfclvgk59xh Tablets 2 tablets by mouth every day 30tabs R60.0 Fior Rodriguez MD, PhD 10/05/2022 Multi + [place]-3 Adult GummiesChewtabs 1 by mouth every day Dawson Almodovar DO 08/08/2022 Vitamin B ComplexTablets 1 by mouth every day Dawson Almodovar DO 08/08/2022 Losartan Potassium/Hydrochlorothi jrhbi876-90bt Tablets 1 by mouth every day 90tabs I10 Dawson Almodovar, DO 03/21/2020 Juice Plus Fibre` Dawson Almodovar, DO 02/19/2018 Aspirin Adult Low Eyuy72dz Tablets DR 1 by mouth every day Unknown Citalopram Jlwpmghokeuh07lu Tablets 1 by mouth every day 90tabs F41.1 Dawson Almodovar, DO Vitamin D3 Maximum Lvzdqwzy659npx (5000 Ut) Capsules 1 by mouth once daily Unknown Immunizations CPT Code Status Date Vaccine Lot # [id number] Given 07/14/2009 Pneumococcal Vaccine/Pneu movax 23 33530 Refused 10/19/2022 Shingrix 34993 Refused 08/08/2022 Pneumococcal Conjugate-Pr evnar 20 51683 Refused 08/08/2022 Influenza Vac, Split, Preservative Free High Dose Age 65 & > 07149 Refused 04/20/2022 Moderna Sars-Co v-2 (Covid-19) vaccine, 100 mcg/ 0.5 mL 12Y+ 09482 Refused 10/16/2021 Influenza Virus Vaccine, Quadrivalent (Cciiv4), Derived From Cell 59375 Refused 10/16/2021 Shingrix 85033 Refused 10/16/2021 Pneumococcal Conjugate-Pr evnar 13 36296 Refused 03/20/2021 Pfizer Sars-Cov -2 (Covid-19) vaccine, 30mcg/0.3ML 12Y+ 18988 Refused 04/17/2019 Influenza Vacci ne, Inactivated, Subunit, Adjuvanted, For Intrmusc 11887 Refused 01/29/2019 Tdap (Tetanus, diphtheria & acel. pertussis) Adacel or Boostrix 45580 Refused 01/29/2019 Pneumococcal Conjugate-Pr evnar 13 Vital [...] H/L Range N ote CBC W/Diff 02/18/2023 [facility]. [address] [place] [address] [phone] WBC 7.6 10^3/M3 3.1-9.2 RBC 4.19 10^6/M3 3.70-5.50 HGB 12.2 GR/DL 11.5-16.1 HCT 36.6 % 34.5-47.8 MCV 87.5 CUMICR 82.6-95.8 MCH 29.1 PICOGR 27.9-32.9 MCHC 33.3 % 32.6-35.4 RDW 14.9 % High 11.4-14.6 PLT 225 10^3/M3 140-350 MPV 8.8 CUMICR 7.0-10.6 %Neut 57.1 % 40.0-75.0 %Lymph 29.4 % 17.0-45.0 %Freestone 8.6 % 1.0-11.0 %Eos 3.8 % 0.0-6.0 %Baso 1.1 % 0.0-2.0 #Neut 4.4 10^3/M3 1.5-8.0 #Lymph 2.2 10^3/M3 0.8-3.2 #Freestone 0.7 10^3/M3 0.0-0.8 #Eos 0.3 10^3/m3 0.0-0.4 #Baso 0.1 10^3/m3 0.0-0.2 Comp. Met 02/18/2023 [facility]. [address] [place], [place] [id number] [phone] Glucose 96 mg/dL 70-110 BUN 18 mg/dL [...] 2.0-3.4 GFR 72 ML/MIN/1.73SQM >60 Lipid 02/18/2023 [facility]. [address] [place] [address] [phone] Cholesterol 164 mg/dL 0-200 1 Triglyceride 79 mg/dL 0-150 2 HDLD 62 mg/dL See Comment 3 Measured LDL 99 mg/dL 0-130 4 Calc VLDL 15.8 mg/dL See Comment 5 Chol/HDL 2.6 RATIO See Comment 6 Non-HDL 102 mg/dL See Comment 7 Laboratory test finding 02/18/2023 [facility]. [address] [place] [address] [phone] Vitd-25Oh 77 ng/mL 30-100 VB12 411 pg/mL 230-1050 BMP 11/27/2022 [facility]. [address] [place] [address] [phone] Glucose 95 mg/dL 70-110 BUN 14 mg/dL 6-25 Creatinine 0.8 mg/dL 0.5-1.2 Sodium 136 mEq/L 135-145 Potassium 4.0 mEq/L 3.5-5.0 Chloride 97 mEq/L 95-107 Co-2 29 mEq/L 24-31 Calcium 9.8 mg/dL 8.5-10.6 GFR 72 >60 BMP 11/15/2022 [facility]. [address] [place] [address] [phone] Glucose 118 mg/dL High 70-110 BUN 14 mg/dL 6-25 Creatinine 0.9 mg/dL 0.5-1.2 Sodium 134 mEq/L Low 135-145 Potassium 3.7 mEq/L 3.5-5.0 Chloride 96 mEq/L 95-107 Co-2 27 mEq/L 24-31 Calcium 10.1 mg/dL 8.5-10.6 GFR 63 >60 BMP 10/29/2022 [facility]. [address] [place] [address] [phone] Glucose 105 mg/dL 70-110 BUN 13 mg/dL [...] LDL Target Procedures Date Code Description Status 04/18/2023 98279 Therapy Proc, Neuromuscular Reeducation Of Movement Completed 04/18/2023 21431 Manual Manager Underwriting 1/> Area 15 Min Each Region Completed 04/18/2023 83554 Therapy Proc 1/> Area 15Min Ea Completed 04/15/2023 09448 Manual Manager Underwriting 1/> Area 15 Min Each Region Completed 04/15/2023 79583 Therapy Proc, Neuromuscular Reeducation Of Movement Completed 04/15/2023 40476 Therapy Proc 1/> Area 15Min Ea Completed 04/15/2023 80246 Hot/Cold Pack Completed 04/12/2023 04184 Manual Manager Underwriting 1/> Area 15 Min Each Region Completed 04/12/2023 37669 Therapy Proc, Neuromuscular Reeducation Of Movement Completed 04/12/2023 38551 Therapy Proc 1/> Area 15Min Ea Completed 04/12/2023 66828 Hot/Cold Pack Completed 04/10/2023 45470 Manual Manager Underwriting 1/> Area 15 Min Each Region Completed 04/10/2023 50086 Therapy Proc, Neuromuscular Reeducation Of Movement Completed 04/10/2023 35546 Therapy Proc 1/> Area 15Min Ea Completed 04/08/2023 86257 Therapy Proc, Neuromuscular Reeducation Of Movement Completed 04/08/2023 01960 Therapy Proc 1/> Area 15Min Ea Completed 04/08/2023 76084 Manual Manager Underwriting 1/> Area 15 Min Each Region Completed 04/05/2023 75504 Manual Manager Underwriting 1/> Area 15 Min Each Region Completed 04/05/2023 68980 Therapy Proc, Neuromuscular Reeducation Of Movement Completed 04/05/2023 28267 Therapy Proc 1/> Area 15Min Ea Completed 04/03/2023 04173 Manual Manager Underwriting 1/> Area 15 Min Each Region Completed 04/03/2023 64089 Therapy Proc, Neuromuscular Reeducation Of Movement Completed 04/03/2023 21632 Therapy Proc 1/> Area 15Min Ea Completed 04/01/2023 95786 Manual Manager Underwriting 1/> Area 15 Min Each Region Completed 04/01/2023 11708 Therapy Proc, Neuromuscular Reeducation Of Movement Completed 04/01/2023 68383 Therapy Proc 1/> Area 15Min Ea Completed 03/29/2023 56404 Therapy Proc 1/> Area 15Min Ea Completed 03/29/2023 45019 Therapy Proc, Neuromuscular Reeducation Of Movement Completed 03/29/2023 30471 Manual Manager Underwriting 1/> Area 15 Min Each Region Completed 03/27/2023 33869 Manual Manager Underwriting 1/> Area 15 Min Each Region Completed 03/27/2023 38445 Therapy Proc, Neuromuscular Reeducation Of Movement Completed 03/27/2023 47100 Therapy Proc 1/> Area 15Min Ea Completed 03/25/2023 62079 Manual Manager Underwriting 1/> Area 15 Min Each Region Completed 03/25/2023 13212 Therapy Proc, Neuromuscular Reeducation Of Movement Completed 03/25/2023 24993 Therapy Proc 1/> Area 15Min Ea Completed 03/22/2023 51021 Manual Manager Underwriting 1/> Area 15 Min Each Region Completed 03/22/2023 83237 Therapy Proc, Neuromuscular Reeducation Of Movement Completed 03/22/2023 87121 Therapy Proc 1/> Area 15Min Ea Completed 03/20/2023 66696 Manual Manager Underwriting 1/> Area 15 Min Each Region Completed 03/20/2023 27859 Therapy Proc, Neuromuscular Reeducation Of Movement Completed 03/20/2023 47010 Therapy Proc 1/> Area 15Min Ea Completed 03/18/2023 18589 Manual Manager Underwriting 1/> Area 15 Min Each Region Completed 03/18/2023 21928 Therapy Proc 1/> Area 15Min Ea Completed 03/18/2023 07548 Therapy Proc, Neuromuscular Reeducation Of Movement Completed 03/15/2023 37588 Manual Manager Underwriting 1/> Area 15 Min Each Region Completed 03/15/2023 25061 Therapy Proc, Neuromuscular Reeducation Of Movement Completed 03/15/2023 36682 Therapy Proc 1/> Area 15Min Ea Completed 03/13/2023 50482 Physical Therapy Evaluation Moderate Complexity Completed 03/13/2023 56455 Manual Manager Underwriting 1/> Area 15 Min Each Region Completed 03/13/2023 36378 Therapy Proc 1/> Area 15Min Ea Completed 02/18/2023 48965 Venipuncture Routine Complet ed 11/27/2022 78386 Venipuncture Routine Complet ed 11/15/2022 17536 Venipuncture Routine Complet ed 10/29/2022 02003 Venipuncture Routine Complet ed Medical Devices Description No Information Available Encounters Type Date Location Provider Dx Diagnosis Office Visit 02/22/2023 10:30a Jonatan Almodovar DO I10 Essential (pr imary) hypertension 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 F41.1 Generalized anxiety disorder M15.0 Primary generalized (osteo)arthritis Assessments Date Code Description Provider 04/18/2023 R26.2 Difficulty in wa lking, not elsewhere classified Aki Garcia, NOE 04/18/2023 M25.511 Pain in right shoulder Oziel Garcia, DPT 04/15/2023 R26.2 Difficulty in wa lking, not elsewhere classified Aki Garcia DPT 04/15/2023 M25.511 Pain in right shoulder [...] I10 Essential (primary) hyperten vickie Lab - [place] 02/18/2023 E55.9 Vitamin D deficiency, unspec ified Dawson Almodovar, DO 02/18/2023 E55.9 Vitamin D deficiency, unspec ified Lab - [place] 02/18/2023 E53.8 Deficiency of ot her specified B group vitamins Dawson Almodovra, DO 02/18/2023 E53.8 Deficiency of ot her specified B group vitamins Lab - [place] 11/27/2022 R60.0 Localized edema Dawson A. Jose or, DO 11/27/2022 R60.0 Localized edema Lab - [place] 11/27/2022 I10 Essential (primary) hyperten vickie Dawson Almodovar, DO 11/27/2022 I10 Essential (primary) hyperten vickie Lab - [place] 11/15/2022 R60.0 Localized edema Dawson A. Olil or, DO 11/15/2022 R60.0 Localized edema Lab - [place] 11/15/2022 I10 Essential (primary) hyperten vickie Dawson Almodovar, DO 11/15/2022 I10 Essential (primary) hyperten vickie Lab - [place] 10/29/2022 R60.0 Localized edema Dawson A. Jose or, DO 10/29/2022 R60.0 Localized edema Lab - [place] 10/29/2022 I10 Essential (primary) hypertdania johnston Dawson Almodovar, DO 10/29/2022 I10 Essential (primary) hyperten vickie Lab - [place] Plan of Treatment Future Appointment(s):* 09/06/2023 10:30 am - Dawson Almodovar DO at [place] * 08/28/2023 10:30 am - [facility] [place] Functional Status Description No Information Available Mental Status Description No Information Available Referrals Description No Information Available"
--- OUTSIDE RECORDS SUMMARY | 2023-10-11 13:23 | External Medical Summary | Continuity of Care Document ---
Author Name RAMON GARCIA DPT Address [address] [address] Phone [phone] Organization [facility], Address [address] [place] [address] Phone [phone] Problems Active Problems Provider Date Essential hypertension [...] SIG Qnty Indications Order ing Provider Date Shngvqfnkm48ve Tablets 2 tablets by mouth every day 30tabs R60.0 Fior Rodriguez MD, PhD 10/05/2022 Multi + [place]-3 Adult GummiesChewtabs 1 by mouth every day Dawson Almodovar DO 08/08/2022 Vitamin B ComplexTablets 1 by mouth every day Dawson Almodovar DO 08/08/2022 Losartan Potassium/Hydrochlorothi apikc999-36fv Tablets 1 by mouth every day 90tabs I10 Dawson Almodovar, DO 03/21/2020 Juice Plus Fibre` Dawson Almodoavr, DO 02/19/2018 Aspirin Adult Low Kscl11lg Tablets DR 1 by mouth every day Unknown Citalopram Iayoxhadameh61go Tablets 1 by mouth every day 90tabs F41.1 Dawson Almodovar, DO Vitamin D3 Maximum Kxylmrzs782tqd (5000 Ut) Capsules 1 by mouth once daily Unknown History Medications Pzzawlatni6aq Tablets 1 by mouth every day 30tabs R60.0 Fior Rodriguez MD, PhD 10/19/2022 - 10/19/2022 Immunizations CPT Code Status Date Vaccine Lot # [id number] Given 07/14/2009 Pneumococcal Vaccine/Pneu movax 23 13854 Refused 10/19/2022 Shingrix 08194 Refused 08/08/2022 Pneumococcal Conjugate-Pr evnar 20 95196 Refused 08/08/2022 Influenza Vac, Split, Preservative Free High Dose Age 65 & > 10115 Refused 04/20/2022 Moderna Sars-Co v-2 (Covid-19) vaccine, 100 mcg/ 0.5 mL 12Y+ 36242 Refused 10/16/2021 Influenza Virus Vaccine, Quadrivalent (Cciiv4), Derived From Cell 07239 Refused 10/16/2021 Shingrix 91168 Refused 10/16/2021 Pneumococcal Conjugate-Pr evnar 13 90141 Refused 03/20/2021 Pfizer Sars-Cov -2 (Covid-19) vaccine, 30mcg/0.3ML 12Y+ 19429 Refused 04/17/2019 Influenza Vacci ne, Inactivated, Subunit, Adjuvanted, For Intrmusc 04831 Refused 01/29/2019 Tdap (Tetanus, diphtheria & acel. pertussis) Adacel or Boostrix 95749 Refused 01/29/2019 Pneumococcal Conjugate-Pr evnar 13 Vital [...] H/L Range N ote CBC W/Diff 02/18/2023 [facility]. [address] [place] [address] [phone] WBC 7.6 10^3/M3 3.1-9.2 RBC 4.19 10^6/M3 3.70-5.50 HGB 12.2 GR/DL 11.5-16.1 HCT 36.6 % 34.5-47.8 MCV 87.5 CUMICR 82.6-95.8 MCH 29.1 PICOGR 27.9-32.9 MCHC 33.3 % 32.6-35.4 RDW 14.9 % High 11.4-14.6 PLT 225 10^3/M3 140-350 MPV 8.8 CUMICR 7.0-10.6 %Neut 57.1 % 40.0-75.0 %Lymph 29.4 % 17.0-45.0 %Asotin 8.6 % 1.0-11.0 %Eos 3.8 % 0.0-6.0 %Baso 1.1 % 0.0-2.0 #Neut 4.4 10^3/M3 1.5-8.0 #Lymph 2.2 10^3/M3 0.8-3.2 #Asotin 0.7 10^3/M3 0.0-0.8 #Eos 0.3 10^3/m3 0.0-0.4 #Baso 0.1 10^3/m3 0.0-0.2 Comp. Met 02/18/2023 [facility]. [address] [place] [address] [phone] Glucose 96 mg/dL 70-110 BUN 18 mg/dL [...] 2.0-3.4 GFR 72 ML/MIN/1.73SQM >60 Lipid 02/18/2023 [facility]. [address] [place] [address] [phone] Cholesterol 164 mg/dL 0-200 1 Triglyceride 79 mg/dL 0-150 2 HDLD 62 mg/dL See Comment 3 Measured LDL 99 mg/dL 0-130 4 Calc VLDL 15.8 mg/dL See Comment 5 Chol/HDL 2.6 RATIO See Comment 6 Non-HDL 102 mg/dL See Comment 7 Laboratory test finding 02/18/2023 [facility]. [address] [place] [address] [phone] Vitd-25Oh 77 ng/mL 30-100 VB12 411 pg/mL 230-1050 BMP 11/27/2022 [facility]. [address] [place] [address] [phone] Glucose 95 mg/dL 70-110 BUN 14 mg/dL 6-25 Creatinine 0.8 mg/dL 0.5-1.2 Sodium 136 mEq/L 135-145 Potassium 4.0 mEq/L 3.5-5.0 Chloride 97 mEq/L 95-107 Co-2 29 mEq/L 24-31 Calcium 9.8 mg/dL 8.5-10.6 GFR 72 >60 BMP 11/15/[address] [facility] [address] [place] [address] [phone] Glucose 118 mg/dL High 70-110 BUN 14 mg/dL 6-25 Creatinine 0.9 mg/dL 0.5-1.2 Sodium 134 mEq/L Low 135-145 Potassium 3.7 mEq/L 3.5-5.0 Chloride 96 mEq/L 95-107 Co-2 27 mEq/L 24-31 Calcium 10.1 mg/dL 8.5-10.6 GFR 63 >60 BMP 10/29/2022 [facility]. [address] [place] [address] [phone] Glucose 105 mg/dL 70-110 BUN 13 mg/dL 6-25 Creatinine 0.9 mg/dL 0.5-1.2 Sodium 136 mEq/L 135-145 Potassium 4.0 mEq/L 3.5-5.0 Chloride 97 mEq/L 95-107 Co-2 27 mEq/L 24-31 Calcium 9.8 mg/dL 8.5-10.6 GFR 63 >60 BMP 10/22/2022 [facility]. [address] [place] [address] [phone] Glucose 104 mg/dL 70-110 BUN 13 mg/dL 6-25 Creatinine 0.9 mg/dL 0.5-1.2 Sodium 132 mEq/L Low 135-145 Potassium 3.7 mEq/L 3.5-5.0 Chloride 93 mEq/L Low 95-107 Co-2 32 mEq/L High 24-31 Calcium 10.1 mg/dL 8.5-10.6 GFR 63 >60 Comp. Met 10/19/2022 [facility]. [address] [place] [address] [phone] Glucose 103 mg/dL 70-110 8 BUN 13 mg/dL 6-25 Creatinine 0.8 mg/dL 0.5-1.2 Sodium 128 mEq/L Low 135-145 Potassium 3.7 mEq/L 3.5-5.0 Chloride 89 mEq/L Low 95-107 Co-2 31 mEq/L 24-31 Alk Phos 70 IU/L 43-122 Alt(SGPT) 10 IU/L 10-40 Ast(Sgot) 17 IU/L 3-42 T.Bilirubin 0.6 mg/dL 0.1-1.3 Calcium 9.8 mg/dL 8.5-10.6 Tot.Protein 6.5 g/dL 5.8-8.0 Albumin 4.0 g/dL 3.0-5.2 Globulin 2.5 g/dL 2.0-3.4 GFR 72 >60 Laboratory test finding 10/19/2022 [facility]. [address] [place], [place] [phone] BNP 30.0 pg/mL 0.0-100.0 D-Dimer 10/19/2022 [facility]. [address] [place] [address] [phone] D-Dimer 1780 ng/ml Critical high 0-500 9 1 CHOLESTEROL Less than 200mg/dl Low risk [...] 7 NON-HDL 30mg/dl higher than LDL Target 8 STAT RESULTS CALLED AND FAXED TO ZARA TAN 2:16PM 10/19/22 RUST 9 D-DIMER CONVERSION UNITS ng/ml = D-DU D-DIMER COMMENTS CRITICAL RESULTS VERIFIED, FAXED, AND CALLED TO girish ulloa @ 355pm 10-19-22 Procedures Date Code Description Status 04/10/2023 72729 Therapy Proc, Neuromuscular Reeducation Of Movement Completed 04/10/2023 54698 Manual Manager Willow 1/> Area 15 Min Each Region Completed 04/10/2023 72684 Therapy Proc 1/> Area 15Min Ea Completed 04/08/2023 31272 Manual Manager Willow 1/> Area 15 Min Each Region Completed 04/08/2023 95839 Therapy Proc, Neuromuscular Reeducation Of Movement Completed 04/08/2023 86714 Therapy Proc 1/> Area 15Min Ea Completed 04/05/2023 14013 Manual Manager Willow 1/> Area 15 Min Each Region Completed 04/05/2023 49799 Therapy Proc, Neuromuscular Reeducation Of Movement Completed 04/05/2023 87051 Therapy Proc 1/> Area 15Min Ea Completed 04/03/2023 81330 Manual Manager Willow 1/> Area 15 Min Each Region Completed 04/03/2023 09056 Therapy Proc, Neuromuscular Reeducation Of Movement Completed 04/03/2023 30779 Therapy Proc 1/> Area 15Min Ea Completed 04/01/2023 45158 Manual Manager Willow 1/> Area 15 Min Each Region Completed 04/01/2023 24291 Therapy Proc 1/> Area 15Min Ea Completed 04/01/2023 22570 Therapy Proc, Neuromuscular Reeducation Of Movement Completed 03/29/2023 78514 Manual Manager Willow 1/> Area 15 Min Each Region Completed 03/29/2023 54488 Therapy Proc, Neuromuscular Reeducation Of Movement Completed 03/29/2023 88957 Therapy Proc 1/> Area 15Min Ea Completed 03/27/2023 85456 Manual Manager Willow 1/> Area 15 Min Each Region Completed 03/27/2023 68404 Therapy Proc, Neuromuscular Reeducation Of Movement Completed 03/27/2023 25725 Therapy Proc 1/> Area 15Min Ea Completed 03/25/2023 77272 Therapy Proc 1/> Area 15Min Ea Completed 03/25/2023 76873 Manual Manager Willow 1/> Area 15 Min Each Region Completed 03/25/2023 10005 Therapy Proc, Neuromuscular Reeducation Of Movement Completed 03/22/2023 58557 Manual Manager Willow 1/> Area 15 Min Each Region Completed 03/22/2023 34445 Therapy Proc, Neuromuscular Reeducation Of Movement Completed 03/22/2023 88300 Therapy Proc 1/> Area 15Min Ea Completed 03/20/2023 86669 Manual Manager Willow 1/> Area 15 Min Each Region Completed 03/20/2023 56041 Therapy Proc, Neuromuscular Reeducation Of Movement Completed 03/20/2023 52147 Therapy Proc 1/> Area 15Min Ea Completed 03/18/2023 47418 Manual Manager Willow 1/> Area 15 Min Each Region Completed 03/18/2023 96232 Therapy Proc, Neuromuscular Reeducation Of Movement Completed 03/18/2023 12666 Therapy Proc 1/> Area 15Min Ea Completed 03/15/2023 00734 Therapy Proc, Neuromuscular Reeducation Of Movement Completed 03/15/2023 12909 Therapy Proc 1/> Area 15Min Ea Completed 03/15/2023 50859 Manual Manager Willow 1/> Area 15 Min Each Region Completed 03/13/2023 46887 Physical Therapy Evaluation Moderate Complexity Completed 03/13/2023 43602 Manual Manager Willow 1/> Area 15 Min Each Region Completed 03/13/2023 09910 Therapy Proc 1/> Area 15Min Ea Completed 02/18/2023 66605 Venipuncture Routine Complet ed 11/27/2022 56066 Venipuncture Routine Complet ed 11/15/2022 56485 Venipuncture Routine Complet ed 10/29/2022 00816 Venipuncture Routine Complet ed 10/22/2022 G2012 Phone Evaluation/Management Physician 11-20 Mins Completed 10/22/2022 79623 Venipuncture Routine Complet ed 10/19/2022 34225 Venipuncture Routine Complet ed Medical Devices Description No Information Available Encounters Type Date Location Provider Dx Diagnosis Office Visit 02/22/2023 10:30a [facility] Almodovar, DO I10 Essential (pr imary) hypertension 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 F41.1 Generalized anxiety disorder M15.0 Primary generalized (osteo)arthritis Office Visit 10/22/2022 10:30a [facility] Mayra Terrie Cox MD R60.0 Localized edema Office Visit 10/19/2022 9:30a [facility] Juany Cox MD R60.0 Localized edema I10 Essential (primary) hypertension Assessments Date Code Description Provider 04/10/2023 R26.2 Difficulty in wa lking, not elsewhere classified Ramon Garcia DPT 04/10/2023 M25.511 Pain in right shoulder Oziel Garcia, GABRIELLET 04/08/2023 R26.2 Difficulty in wa lking, not elsewhere classified Ramon Garcia DPT 04/08/2023 M25.511 Pain in right shoulder Oziel Garcia, DPT 04/05/2023 R26.2 Difficulty in wa lking, not elsewhere classified Ramon Garcia DPT 04/05/2023 M25.511 Pain in right shoulder Oziel Garcia, DPT 04/03/2023 R26.2 Difficulty in wa lking, not elsewhere classified Ramon Garcia DPT 04/03/2023 M25.511 Pain in right shoulder Oziel Garcia, DPT 04/01/2023 R26.2 Difficulty in wa lking, not elsewhere classified Ramon Garcia, DPT 04/01/2023 M25.511 Pain in right shoulder Oziel Garcia, DPT 03/29/2023 R26.2 Difficulty in wa lking, not elsewhere classified Ramon Garcia, DPT 03/29/2023 M25.511 Pain in right shoulder Oziel Garcia, DPT 03/27/2023 R26.2 Difficulty in wa lking, not elsewhere classified Ramon Garcia, DPT 03/27/2023 M25.511 Pain in right shoulder Oziel Garcia, DPT 03/25/2023 R26.2 Difficulty in wa lking, not elsewhere classified Ramon Garcia, DPT 03/25/2023 M25.511 Pain in right shoulder Oziel Garcia, DPT 03/22/2023 R26.2 Difficulty in wa lking, not elsewhere classified Ramon Garcia, DPT 03/22/2023 M25.511 Pain in right shoulder Oziel Garcia, DPT 03/20/2023 R26.2 Difficulty in wa lking, not elsewhere classified Ramon Garcia, DPT 03/20/2023 M25.511 Pain in right shoulder Oziel Garcia, DPT 03/18/2023 R26.2 Difficulty in wa lking, not elsewhere classified Ramon Garcia, DPT 03/18/2023 M25.511 Pain in right shoulder Oziel Garcia, DPT 03/15/2023 R26.2 Difficulty in wa lking, not elsewhere classified Ramon Garcia, DPT 03/15/2023 M25.511 Pain in right shoulder Oziel Garcia, DPT 03/13/2023 R26.2 Difficulty in wa lking, not elsewhere classified Ramon Garcia, DPT 03/13/2023 M25.511 Pain in right [...] I10 Essential (primary) hyperten vickie [facility] - [facility] 02/18/2023 E55.9 Vitamin D deficiency, unspec ified Dawson Almodovar, DO 02/18/2023 E55.9 Vitamin D deficiency, unspec ified Lab - [facility] 02/18/2023 E53.8 Deficiency of ot her specified B group vitamins Dawson Almodovar, DO 02/18/2023 E53.8 Deficiency of ot her specified B group vitamins Lab - [facility] 11/27/2022 R60.0 Localized edema Dawson A. Olil or, DO 11/27/2022 R60.0 Localized edema Lab - [place] 11/27/2022 I10 Essential (primary) hypertdania Almodovar, DO 11/27/2022 I10 Essential (primary) hypertdania [place] [facility] - [facility] 11/15/2022 R60.0 Localized edema Dawson A. Olil or, DO 11/15/2022 R60.0 Localized edema Lab - [place] 11/15/2022 I10 Essential (primary) hyperten vickie Almodovar, DO 11/15/2022 I10 Essential (primary) hypertdania [place] [facility] - [facility] 10/29/2022 R60.0 Localized edema Dawson A. Olil or, DO 10/29/2022 R60.0 Localized edema Lab - [place] 10/29/2022 I10 Essential (primary) hypertdania Almodovar, DO 10/29/2022 I10 Essential (primary) hypertdania [place] [facility] - [place] 10/22/2022 R60.0 Localized edema Dawson AAlvin Garcia or, DO 10/22/2022 R60.0 Localized edema Mayra Cox MD 10/22/2022 I10 Essential (primary) hypertdania Almodovar, DO 10/22/2022 R60.0 Localized edema Lab - [place] 10/22/2022 I10 Essential (primary) hyperten vickie Lab - [place] 10/19/2022 R60.0 Localized edema Mayra Cox MD 10/19/2022 I10 Essential (primary) hyperten vickie Mayra Scott Cox MD Plan of Treatment Future Appointment(s):* 09/06/2023 10:30 am - Dawson Almodovar DO at [facility] * 08/28/2023 10:30 am - [facility] Functional Status Description No Information Available Mental Status Description No Information Available Referrals Description No Information Available"
--- OUTSIDE RECORDS SUMMARY | 2023-10-11 13:23 | External Medical Summary | Continuity of Care Document ---
Author Name AKI GARCIA DPT Address [address] [address] Phone [phone] Organization [facility], Address [address] [place] [address] Phone [phone] Problems Active Problems Provider Date Essential hypertension [...] SIG Qnty Indications Order ing Provider Date Mimxvqrlxz61gk Tablets 2 tablets by mouth every day 30tabs R60.0 Fior Rodriguez MD, PhD 10/05/2022 Multi + [place]-3 Adult GummiesChewtabs 1 by mouth every day Dawson Almodovar DO 08/08/2022 Vitamin B ComplexTablets 1 by mouth every day Dawson Almodovar DO 08/08/2022 Losartan Potassium/Hydrochlorothi lvigx339-06ql Tablets 1 by mouth every day 90tabs I10 Dawson Almodovar, DO 03/21/2020 Juice Plus Fibre` Dawson Almodovar, DO 02/19/2018 Aspirin Adult Low Brsa51cv Tablets DR 1 by mouth every day Unknown Citalopram Udmpwtkclxej77re Tablets 1 by mouth every day 90tabs F41.1 Dawson Almodovar, DO Vitamin D3 Maximum Xsuuztsi724gts (5000 Ut) Capsules 1 by mouth once daily Unknown Immunizations CPT Code Status Date Vaccine Lot # [id number] Given 07/14/2009 Pneumococcal Vaccine/Pneu movax 23 68801 Refused 10/19/2022 Shingrix 02850 Refused 08/08/2022 Pneumococcal Conjugate-Pr evnar 20 09074 Refused 08/08/2022 Influenza Vac, Split, Preservative Free High Dose Age 65 & > 63591 Refused 04/20/2022 Moderna Sars-Co v-2 (Covid-19) vaccine, 100 mcg/ 0.5 mL 12Y+ 60961 Refused 10/16/2021 Influenza Virus Vaccine, Quadrivalent (Cciiv4), Derived From Cell 94533 Refused 10/16/2021 Shingrix 35562 Refused 10/16/2021 Pneumococcal Conjugate-Pr evnar 13 06536 Refused 03/20/2021 Pfizer Sars-Cov -2 (Covid-19) vaccine, 30mcg/0.3ML 12Y+ 35251 Refused 04/17/2019 Influenza Vacci ne, Inactivated, Subunit, Adjuvanted, For Intrmusc 45776 Refused 01/29/2019 Tdap (Tetanus, diphtheria & acel. pertussis) Adacel or Boostrix 61585 Refused 01/29/2019 Pneumococcal Conjugate-Pr evnar 13 Vital [...] Range N ote CBC W/Diff 02/18/2023 [facility]. [address] [place] [address] [phone] WBC 7.6 10^3/M3 3.1-9.2 RBC 4.19 10^6/M3 3.70-5.50 HGB 12.2 GR/DL 11.5-16.1 HCT 36.6 % 34.5-47.8 MCV 87.5 CUMICR 82.6-95.8 MCH 29.1 PICOGR 27.9-32.9 MCHC 33.3 % 32.6-35.4 RDW 14.9 % High 11.4-14.6 PLT 225 10^3/M3 140-350 MPV 8.8 CUMICR 7.0-10.6 %Neut 57.1 % 40.0-75.0 %Lymph 29.4 % 17.0-45.0 %Ashe 8.6 % 1.0-11.0 %Eos 3.8 % 0.0-6.0 %Baso 1.1 % 0.0-2.0 #Neut 4.4 10^3/M3 1.5-8.0 #Lymph 2.2 10^3/M3 0.8-3.2 #Ashe 0.7 10^3/M3 0.0-0.8 #Eos 0.3 10^3/m3 0.0-0.4 #Baso 0.1 10^3/m3 0.0-0.2 Comp. Met 02/18/2023 [facility]. [address] [place], [place] [id number] [phone] Glucose 96 mg/dL 70-110 BUN 18 mg/dL [...] GFR 72 ML/MIN/1.73SQM >60 Lipid 02/18/2023 [facility]. [address] [place] [address] [phone] Cholesterol 164 mg/dL 0-200 1 Triglyceride 79 mg/dL 0-150 2 HDLD 62 mg/dL See Comment 3 Measured LDL 99 mg/dL 0-130 4 Calc VLDL 15.8 mg/dL See Comment 5 Chol/HDL 2.6 RATIO See Comment 6 Non-HDL 102 mg/dL See Comment 7 Laboratory test finding 02/18/2023 [facility]. [address] [place] [address] [phone] Vitd-25Oh 77 ng/mL 30-100 VB12 411 pg/mL 230-1050 BMP 11/27/2022 [facility]. [address] [place] [address] [phone] Glucose 95 mg/dL 70-110 BUN 14 mg/dL 6-25 Creatinine 0.8 mg/dL 0.5-1.2 Sodium 136 mEq/L 135-145 Potassium 4.0 mEq/L 3.5-5.0 Chloride 97 mEq/L 95-107 Co-2 29 mEq/L 24-31 Calcium 9.8 mg/dL 8.5-10.6 GFR 72 >60 BMP 11/15/2022 [facility]. [address] [place] [address] [phone] Glucose 118 mg/dL High 70-110 BUN 14 mg/dL 6-25 Creatinine 0.9 mg/dL 0.5-1.2 Sodium 134 mEq/L Low 135-145 Potassium 3.7 mEq/L 3.5-5.0 Chloride 96 mEq/L 95-107 Co-2 27 mEq/L 24-31 Calcium 10.1 mg/dL 8.5-10.6 GFR 63 >60 BMP 10/29/2022 [facility]. [address] [place] [address] [phone] Glucose 105 mg/dL 70-110 BUN 13 mg/dL [...] LDL Target Procedures Date Code Description Status 04/15/2023 02944 Therapy Proc, Neuromuscular Reeducation Of Movement Completed 04/15/2023 06741 Manual Insulator Cutter And Former 1/> Area 15 Min Each Region Completed 04/15/2023 43373 Hot/Cold Pack Completed 04/15/2023 13594 Therapy Proc 1/> Area 15Min Ea Completed 04/12/2023 64965 Manual Insulator Cutter And Former 1/> Area 15 Min Each Region Completed 04/12/2023 38795 Therapy Proc, Neuromuscular Reeducation Of Movement Completed 04/12/2023 43985 Therapy Proc 1/> Area 15Min Ea Completed 04/12/2023 45019 Hot/Cold Pack Completed 04/10/2023 69221 Manual Insulator Cutter And Former 1/> Area 15 Min Each Region Completed 04/10/2023 24270 Therapy Proc, Neuromuscular Reeducation Of Movement Completed 04/10/2023 99065 Therapy Proc 1/> Area 15Min Ea Completed 04/08/2023 09267 Therapy Proc 1/> Area 15Min Ea Completed 04/08/2023 21121 Therapy Proc, Neuromuscular Reeducation Of Movement Completed 04/08/2023 62294 Manual Insulator Cutter And Former 1/> Area 15 Min Each Region Completed 04/05/2023 02878 Manual Insulator Cutter And Former 1/> Area 15 Min Each Region Completed 04/05/2023 17957 Therapy Proc, Neuromuscular Reeducation Of Movement Completed 04/05/2023 42550 Therapy Proc 1/> Area 15Min Ea Completed 04/03/2023 12698 Manual Insulator Cutter And Former 1/> Area 15 Min Each Region Completed 04/03/2023 30918 Therapy Proc, Neuromuscular Reeducation Of Movement Completed 04/03/2023 20239 Therapy Proc 1/> Area 15Min Ea Completed 04/01/2023 07084 Manual Insulator Cutter And Former 1/> Area 15 Min Each Region Completed 04/01/2023 91933 Therapy Proc, Neuromuscular Reeducation Of Movement Completed 04/01/2023 71497 Therapy Proc 1/> Area 15Min Ea Completed 03/29/2023 04929 Therapy Proc 1/> Area 15Min Ea Completed 03/29/2023 17610 Manual Insulator Cutter And Former 1/> Area 15 Min Each Region Completed 03/29/2023 56009 Therapy Proc, Neuromuscular Reeducation Of Movement Completed 03/27/2023 27760 Manual Insulator Cutter And Former 1/> Area 15 Min Each Region Completed 03/27/2023 84749 Therapy Proc, Neuromuscular Reeducation Of Movement Completed 03/27/2023 61147 Therapy Proc 1/> Area 15Min Ea Completed 03/25/2023 17035 Manual Insulator Cutter And Former 1/> Area 15 Min Each Region Completed 03/25/2023 63248 Therapy Proc, Neuromuscular Reeducation Of Movement Completed 03/25/2023 29863 Therapy Proc 1/> Area 15Min Ea Completed 03/22/2023 99444 Manual Insulator Cutter And Former 1/> Area 15 Min Each Region Completed 03/22/2023 05511 Therapy Proc, Neuromuscular Reeducation Of Movement Completed 03/22/2023 26846 Therapy Proc 1/> Area 15Min Ea Completed 03/20/2023 70128 Therapy Proc 1/> Area 15Min Ea Completed 03/20/2023 59463 Therapy Proc, Neuromuscular Reeducation Of Movement Completed 03/20/2023 69884 Manual Insulator Cutter And Former 1/> Area 15 Min Each Region Completed 03/18/2023 90541 Manual Insulator Cutter And Former 1/> Area 15 Min Each Region Completed 03/18/2023 33988 Therapy Proc, Neuromuscular Reeducation Of Movement Completed 03/18/2023 65143 Therapy Proc 1/> Area 15Min Ea Completed 03/15/2023 35698 Manual Insulator Cutter And Former 1/> Area 15 Min Each Region Completed 03/15/2023 12071 Therapy Proc, Neuromuscular Reeducation Of Movement Completed 03/15/2023 47367 Therapy Proc 1/> Area 15Min Ea Completed 03/13/2023 97546 Physical Therapy Evaluation Moderate Complexity Completed 03/13/2023 26205 Manual Insulator Cutter And Former 1/> Area 15 Min Each Region Completed 03/13/2023 96395 Therapy Proc 1/> Area 15Min Ea Completed 02/18/2023 78260 Venipuncture Routine Complet ed 11/27/2022 76672 Venipuncture Routine Complet ed 11/15/2022 48623 Venipuncture Routine Complet ed 10/29/2022 75641 Venipuncture Routine Complet ed Medical Devices Description No Information Available Encounters Type Date Location Provider Dx Diagnosis Office Visit 02/22/2023 10:30a Jonatan Almodovar DO I10 Essential (pr imary) hypertension 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 Nishi, DO 02/18/2023 I10 Essential (primary) hyperten vickie Lab - [place] 02/18/2023 E55.9 Vitamin D deficiency, unspec ified Dawson Almodovar, DO 02/18/2023 E55.9 Vitamin D deficiency, unspec ified Lab - [place] 02/18/2023 E53.8 Deficiency of ot her specified B group vitamins Dawson Almodovar, DO 02/18/2023 E53.8 Deficiency of ot her specified B group vitamins Lab - [place] 11/27/2022 R60.0 Localized edema Dawson A. Tayl or, DO 11/27/2022 R60.0 Localized edema Lab - [place] 11/27/2022 I10 Essential (primary) tana Marino Nishi, DO 11/27/2022 I10 Essential (primary) hypertdania vickie Lab - [place] 11/15/2022 R60.0 Localized edema Dawson A. Tayl or, DO 11/15/2022 R60.0 Localized edema Lab - [place] 11/15/2022 I10 Essential (primary) hyperten vickie Marino Nishi, DO 11/15/2022 I10 Essential (primary) hypertdania [place] Lab - [place] 10/29/2022 R60.0 Localized edema Dawson A. Tayl or, DO 10/29/2022 R60.0 Localized edema Lab - [place] 10/29/2022 I10 Essential (primary) tana Marino Nishi, DO 10/29/2022 I10 Essential (primary) hypertdania [place] Lab - [place] Plan of Treatment Future Appointment(s):* 09/06/2023 10:30 am - Dawson Almodovar, at [place] * 08/28/2023 10:30 am - [facility] [place] [facility] [place] Functional Status Description No Information Available Mental Status Description No Information Available Referrals Description No Information Available"
--- OUTSIDE RECORDS SUMMARY | 2023-10-11 13:23 | External Medical Summary | Continuity of Care Document ---
Author Name AKI GARCIA DPT Address [address] [address] Phone [phone] Organization [facility], Address [address] [place] [address] Phone [phone] Problems Active Problems Provider Date Essential hypertension [...] SIG Qnty Indications Order ing Provider Date Npjzklafpd00qn Tablets 2 tablets by mouth every day 30tabs R60.0 Fior Rodriguez MD, PhD 10/05/2022 Multi + [place]-3 Adult GummiesChewtabs 1 by mouth every day Dawson Almodovar DO 08/08/2022 Vitamin B ComplexTablets 1 by mouth every day Dawson Almodovar DO 08/08/2022 Losartan Potassium/Hydrochlorothi -40gb Tablets 1 by mouth every day 90tabs I10 Dawson Almodovar, DO 03/21/2020 Juice Plus Fibre` Dawson Almodovar, DO 02/19/2018 Aspirin Adult Low Bmmz17ho Tablets DR 1 by mouth every day Unknown Citalopram Qvsbxywghhkx03yr Tablets 1 by mouth every day 90tabs F41.1 Dawson Almodovar, DO Vitamin D3 Maximum [id number] (5000 Ut) Capsules 1 by mouth once daily Unknown Immunizations CPT Code Status Date Vaccine Lot # [id number] Given 07/14/2009 Pneumococcal Vaccine/Pneu movax 23 51886 Refused 10/19/2022 Shingrix 56293 Refused 08/08/2022 Pneumococcal Conjugate-Pr evnar 20 70004 Refused 08/08/2022 Influenza Vac, Split, Preservative Free High Dose Age 65 & > 26840 Refused 04/20/2022 Moderna Sars-Co v-2 (Cov-19) vacc,100 mcg/ 0.5 mL 12Y+EMR Doc Only 52841 Refused 10/16/2021 Influenza Virus Vaccine, Quadrivalent (Cciiv4), Derived From Cell 79531 Refused 10/16/2021 Shingrix 55602 Refused 10/16/2021 Pneumococcal Conjugate-Pr evnar 13 77157 Refused 03/20/2021 Pfizer Sars-Cov -2 (Cov-19) vacc 30mcg/0.3ML 12Y+ EMR Doc Only 27075 Refused 04/17/2019 Influenza Vacci ne, Inactivated, Subunit, Adjuvanted, For Intrmusc 49219 Refused 01/29/2019 Tdap (Tetanus, diphtheria & acel. pertussis) Adacel or Boostrix 59910 Refused 01/29/2019 Pneumococcal Conjugate-Pr evnar 13 Vital [...] Range N ote CBC W/Diff 02/18/2023 [facility]. [address] [place] [address] [phone] WBC 7.6 10^3/M3 3.1-9.2 RBC 4.19 10^6/M3 3.70-5.50 HGB 12.2 GR/DL 11.5-16.1 HCT 36.6 % 34.5-47.8 MCV 87.5 CUMICR 82.6-95.8 MCH 29.1 PICOGR 27.9-32.9 MCHC 33.3 % 32.6-35.4 RDW 14.9 % High 11.4-14.6 PLT 225 10^3/M3 140-350 MPV 8.8 CUMICR 7.0-10.6 %Neut 57.1 % 40.0-75.0 %Lymph 29.4 % 17.0-45.0 %Rosebud 8.6 % 1.0-11.0 %Eos 3.8 % 0.0-6.0 %Baso 1.1 % 0.0-2.0 #Neut 4.4 10^3/M3 1.5-8.0 #Lymph 2.2 10^3/M3 0.8-3.2 #Rosebud 0.7 10^3/M3 0.0-0.8 #Eos 0.3 10^3/m3 0.0-0.4 #Baso 0.1 10^3/m3 0.0-0.2 Comp. Met 02/18/2023 [facility] [address] [place] [address] [phone] Glucose 96 mg/dL 70-110 BUN 18 mg/dL [...] GFR 72 ML/MIN/1.73SQM >60 Lipid 02/18/2023 [facility] [address] [place] [address] [phone] Cholesterol 164 mg/dL 0-200 1 Triglyceride 79 mg/dL 0-150 2 HDLD 62 mg/dL See Comment 3 Measured LDL 99 mg/dL 0-130 4 Calc VLDL 15.8 mg/dL See Comment 5 Chol/HDL 2.6 RATIO See Comment 6 Non-HDL 102 mg/dL See Comment 7 Laboratory test finding 02/18/2023 [facility] [address] [place] [address] [phone] Vitd-25Oh 77 ng/mL 30-100 VB12 411 pg/mL 230-1050 BMP 11/27/2022 [facility] [address] [place], [place] [id number] [phone] Glucose 95 mg/dL 70-110 BUN 14 mg/dL 6-25 Creatinine 0.8 mg/dL 0.5-1.2 Sodium 136 mEq/L 135-145 Potassium 4.0 mEq/L 3.5-5.0 Chloride 97 mEq/L 95-107 Co-2 29 mEq/L 24-31 Calcium 9.8 mg/dL 8.5-10.6 GFR 72 >60 BMP 11/15/2022 [facility] [address] [place], [place] [id number] [phone] Glucose 118 mg/dL High 70-110 BUN 14 [...] Target Procedures Date Code Description Status 04/24/2023 70878 Therapy Proc, Neuromuscular Reeducation Of Movement Completed 04/24/2023 51852 Manual Material Processor 1/> Area 15 Min Each Region Completed 04/24/2023 67838 Therapy Proc 1/> Area 15Min Ea Completed 04/22/2023 51039 Manual Material Processor 1/> Area 15 Min Each Region Completed 04/22/2023 72354 Therapy Proc, Neuromuscular Reeducation Of Movement Completed 04/22/2023 64662 Therapy Proc 1/> Area 15Min Ea Completed 04/22/2023 18100 Hot/Cold Pack Completed 04/19/2023 86100 Manual Material Processor 1/> Area 15 Min Each Region Completed 04/19/2023 65198 Therapy Proc, Neuromuscular Reeducation Of Movement Completed 04/19/2023 02767 Therapy Proc 1/> Area 15Min Ea Completed 04/19/2023 73980 Hot/Cold Pack Completed 04/18/2023 57842 Manual Material Processor 1/> Area 15 Min Each Region Completed 04/18/2023 18606 Therapy Proc, Neuromuscular Reeducation Of Movement Completed 04/18/2023 04739 Therapy Proc 1/> Area 15Min Ea Completed 04/15/2023 61570 Hot/Cold Pack Completed 04/15/2023 14518 Therapy Proc 1/> Area 15Min Ea Completed 04/15/2023 19904 Manual Material Processor 1/> Area 15 Min Each Region Completed 04/15/2023 47921 Therapy Proc, Neuromuscular Reeducation Of Movement Completed 04/12/2023 40957 Manual Material Processor 1/> Area 15 Min Each Region Completed 04/12/2023 00063 Therapy Proc, Neuromuscular Reeducation Of Movement Completed 04/12/2023 22893 Therapy Proc 1/> Area 15Min Ea Completed 04/12/2023 70015 Hot/Cold Pack Completed 04/10/2023 05017 Therapy Proc 1/> Area 15Min Ea Completed 04/10/2023 03453 Therapy Proc, Neuromuscular Reeducation Of Movement Completed 04/10/2023 50723 Manual Material Processor 1/> Area 15 Min Each Region Completed 04/08/2023 47800 Manual Material Processor 1/> Area 15 Min Each Region Completed 04/08/2023 70594 Therapy Proc, Neuromuscular Reeducation Of Movement Completed 04/08/2023 42367 Therapy Proc 1/> Area 15Min Ea Completed 04/05/2023 11242 Manual Material Processor 1/> Area 15 Min Each Region Completed 04/05/2023 33098 Therapy Proc, Neuromuscular Reeducation Of Movement Completed 04/05/2023 67643 Therapy Proc 1/> Area 15Min Ea Completed 04/03/2023 36596 Therapy Proc 1/> Area 15Min Ea Completed 04/03/2023 51003 Therapy Proc, Neuromuscular Reeducation Of Movement Completed 04/03/2023 27786 Manual Material Processor 1/> Area 15 Min Each Region Completed 04/01/2023 69425 Manual Material Processor 1/> Area 15 Min Each Region Completed 04/01/2023 10757 Therapy Proc, Neuromuscular Reeducation Of Movement Completed 04/01/2023 60898 Therapy Proc 1/> Area 15Min Ea Completed 03/29/2023 74608 Manual Material Processor 1/> Area 15 Min Each Region Completed 03/29/2023 05086 Therapy Proc, Neuromuscular Reeducation Of Movement Completed 03/29/2023 65343 Therapy Proc 1/> Area 15Min Ea Completed 03/27/2023 44850 Manual Material Processor 1/> Area 15 Min Each Region Completed 03/27/2023 71282 Therapy Proc, Neuromuscular Reeducation Of Movement Completed 03/27/2023 64662 Therapy Proc 1/> Area 15Min Ea Completed 03/25/2023 80491 Manual Material Processor 1/> Area 15 Min Each Region Completed 03/25/2023 12698 Therapy Proc, Neuromuscular Reeducation Of Movement Completed 03/25/2023 55043 Therapy Proc 1/> Area 15Min Ea Completed 03/22/2023 62469 Therapy Proc 1/> Area 15Min Ea Completed 03/22/2023 87261 Manual Material Processor 1/> Area 15 Min Each Region Completed 03/22/2023 75005 Therapy Proc, Neuromuscular Reeducation Of Movement Completed 03/20/2023 63656 Manual Material Processor 1/> Area 15 Min Each Region Completed 03/20/2023 68886 Therapy Proc, Neuromuscular Reeducation Of Movement Completed 03/20/2023 87367 Therapy Proc 1/> Area 15Min Ea Completed 03/18/2023 66038 Manual Material Processor 1/> Area 15 Min Each Region Completed 03/18/2023 25082 Therapy Proc, Neuromuscular Reeducation Of Movement Completed 03/18/2023 14899 Therapy Proc 1/> Area 15Min Ea Completed 03/15/2023 50157 Manual Material Processor 1/> Area 15 Min Each Region Completed 03/15/2023 75334 Therapy Proc 1/> Area 15Min Ea Completed 03/15/2023 70986 Therapy Proc, Neuromuscular Reeducation Of Movement Completed 03/13/2023 16034 Physical Therapy Evaluation Moderate Complexity Completed 03/13/2023 65778 Manual Material Processor 1/> Area 15 Min Each Region Completed 03/13/2023 45242 Therapy Proc 1/> Area 15Min Ea Completed 02/18/2023 66423 Venipuncture Routine Complet ed 11/27/2022 51818 Venipuncture Routine Complet ed 11/15/2022 54192 Venipuncture Routine Complet ed Medical Devices Description [...] I10 Essential (primary) hyperten vickie [facility] - [place] 02/18/2023 E55.9 Vitamin D deficiency, unspec ified Dawson Almodovar, DO 02/18/2023 E55.9 Vitamin D deficiency, unspec ified Lab - [place] 02/18/2023 E53.8 Deficiency of ot her specified B group vitamins Dawson Almodovar, DO 02/18/2023 E53.8 Deficiency of ot her specified B group vitamins Lab - [place] 11/27/2022 R60.0 Localized edema Dawson hidalgo, DO 11/27/2022 R60.0 Localized edema Lab [place] 11/27/2022 I10 Essential (primary) hyperten vickie Almodovar, DO 11/27/2022 I10 Essential (primary) hyperten vickie [facility] - [place] 11/15/2022 R60.0 Localized edema Dawson hidalgo, DO 11/15/2022 R60.0 Localized edema [facility] - [place] 11/15/2022 I10 Essential (primary) hyperten vickie Dawson Almodovar DO 11/15/2022 I10 Essential (primary) hyperten vickie [facility] - [place] Plan of Treatment Future Appointment(s):* 09/06/2023 10:30 am - Dawson Almodovar DO at [place] * 08/28/2023 10:30 am - [facility] [place] Functional Status Description No Information Available Mental Status Description No Information Available Referrals Description No Information Available"
--- OUTSIDE RECORDS SUMMARY | 2023-10-11 13:23 | External Medical Summary | Continuity of Care Document ---
Author Name AKI GARCIA DPT Address [address] [address] Phone [phone] Organization [facility], Address [address] [place] [address] Phone [phone] Problems Active Problems Provider Date Essential hypertension [...] SIG Qnty Indications Order ing Provider Date Lwubysxhgj18sg Tablets 2 tablets by mouth every day 30tabs R60.0 Fior Rodriguez MD, PhD 10/05/2022 Multi + [place]-3 Adult GummiesChewtabs 1 by mouth every day Dawson Almodovar DO 08/08/2022 Vitamin B ComplexTablets 1 by mouth every day Dawson Almodovar DO 08/08/2022 Losartan Potassium/Hydrochlorothi -55oe Tablets 1 by mouth every day 90tabs I10 Dawson Almodovar, DO 03/21/2020 Juice Plus Fibre` Dawson Almodovar, DO 02/19/2018 Aspirin Adult Low Fgyr04yr Tablets DR 1 by mouth every day Unknown Citalopram Oesctmfkbrtj63mv Tablets 1 by mouth every day 90tabs F41.1 Dawson Almodovar, DO Vitamin D3 Maximum Dxxwsovb766vai (5000 Ut) Capsules 1 by mouth once daily Unknown History Medications Csnueanjee0yw Tablets 1 by mouth every day 30tabs R60.0 Fior Rodriguez MD, PhD 10/19/2022 - 10/19/2022 Immunizations CPT Code Status Date Vaccine Lot # 16819 Given 07/14/2009 Pneumococcal Vaccine/Pneu movax 23 80718 Refused 10/19/2022 Shingrix 41107 Refused 08/08/2022 Pneumococcal Conjugate-Pr evnar 20 85547 Refused 08/08/2022 Influenza Vac, Split, Preservative Free High Dose Age 65 & > 17238 Refused 04/20/2022 Moderna Sars-Co v-2 (Covid-19) vaccine, 100 mcg/ 0.5 mL 12Y+ 25529 Refused 10/16/2021 Influenza Virus Vaccine, Quadrivalent (Cciiv4), Derived From Cell 14588 Refused 10/16/2021 Shingrix 93334 Refused 10/16/2021 Pneumococcal Conjugate-Pr evnar 13 42380 Refused 03/20/2021 Pfizer Sars-Cov -2 (Covid-19) vaccine, 30mcg/0.3ML 12Y+ 81044 Refused 04/17/2019 Influenza Vacci ne, Inactivated, Subunit, Adjuvanted, For Intrmusc 31443 Refused 01/29/2019 Tdap (Tetanus, diphtheria & acel. pertussis) Adacel or Boostrix 89281 Refused 01/29/2019 Pneumococcal Conjugate-Pr evnar 13 Vital [...] H/L Range N ote CBC W/Diff 02/18/2023 [facility]. [address] [place] [address] [phone] WBC 7.6 10^3/M3 3.1-9.2 RBC 4.19 10^6/M3 3.70-5.50 HGB 12.2 GR/DL 11.5-16.1 HCT 36.6 % 34.5-47.8 MCV 87.5 CUMICR 82.6-95.8 MCH 29.1 PICOGR 27.9-32.9 MCHC 33.3 % 32.6-35.4 RDW 14.9 % High 11.4-14.6 PLT 225 10^3/M3 140-350 MPV 8.8 CUMICR 7.0-10.6 %Neut 57.1 % 40.0-75.0 %Lymph 29.4 % 17.0-45.0 %Storey 8.6 % 1.0-11.0 %Eos 3.8 % 0.0-6.0 %Baso 1.1 % 0.0-2.0 #Neut 4.4 10^3/M3 1.5-8.0 #Lymph 2.2 10^3/M3 0.8-3.2 #Storey 0.7 10^3/M3 0.0-0.8 #Eos 0.3 10^3/m3 0.0-0.4 #Baso 0.1 10^3/m3 0.0-0.2 Comp. Met 02/18/2023 [facility] [address] [place] [address] [phone] Glucose 96 mg/dL 70-110 BUN 18 mg/dL [...] 2.0-3.4 GFR 72 ML/MIN/1.73SQM >60 Lipid 02/18/2023 [facility] [address] [place] [address] [phone] Cholesterol 164 mg/dL 0-200 1 Triglyceride 79 mg/dL 0-150 2 HDLD 62 mg/dL See Comment 3 Measured LDL 99 mg/dL 0-130 4 Calc VLDL 15.8 mg/dL See Comment 5 Chol/HDL 2.6 RATIO See Comment 6 Non-HDL 102 mg/dL See Comment 7 Laboratory test finding 02/18/2023 [facility] [address] [place] [address] [phone] Vitd-25Oh 77 ng/mL 30-100 VB12 411 pg/mL 230-1050 BMP 11/27/2022 [facility] [address] [place] [address] [phone] Glucose 95 mg/dL 70-110 BUN 14 mg/dL 6-25 Creatinine 0.8 mg/dL 0.5-1.2 Sodium 136 mEq/L 135-145 Potassium 4.0 mEq/L 3.5-5.0 Chloride 97 mEq/L 95-107 Co-2 29 mEq/L 24-31 Calcium 9.8 mg/dL 8.5-10.6 GFR 72 >60 BMP 11/15/2022 [facility]. [address] [place] [address] [phone] Glucose 118 mg/dL High 70-110 BUN 14 mg/dL 6-25 Creatinine 0.9 mg/dL 0.5-1.2 Sodium 134 mEq/L Low 135-145 Potassium 3.7 mEq/L 3.5-5.0 Chloride 96 mEq/L 95-107 Co-2 27 mEq/L 24-31 Calcium 10.1 mg/dL 8.5-10.6 GFR 63 >60 BMP 10/29/2022 [facility] [address] [place] [address] [phone] Glucose 105 mg/dL 70-110 BUN 13 mg/dL 6-25 Creatinine 0.9 mg/dL 0.5-1.2 Sodium 136 mEq/L 135-145 Potassium 4.0 mEq/L 3.5-5.0 Chloride 97 mEq/L 95-107 Co-2 27 mEq/L 24-31 Calcium 9.8 mg/dL 8.5-10.6 GFR 63 >60 BMP 10/22/2022 [facility] [address] [place] [address] [phone] Glucose 104 mg/dL 70-110 BUN 13 mg/dL 6-25 Creatinine 0.9 mg/dL 0.5-1.2 Sodium 132 mEq/L Low 135-145 Potassium 3.7 mEq/L 3.5-5.0 Chloride 93 mEq/L Low 95-107 Co-2 32 mEq/L High 24-31 Calcium 10.1 mg/dL 8.5-10.6 GFR 63 >60 Comp. Met 10/19/2022 [facility] [address] [place] [address] [phone] Glucose 103 mg/dL 70-110 8 BUN 13 [...] GFR 72 >60 Laboratory test finding 10/19/2022 [facility] [address] [place], [place] [address] [phone] BNP 30.0 pg/mL 0.0-100.0 D-Dimer 10/19/2022 [facility] [address] [place] [address] [phone] D-Dimer 1780 ng/ml Critical high 0-500 9 [...] AND FAXED TO ZARA TAN 2:16PM 10/19/22 [facility] 9 D-DIMER CONVERSION UNITS ng/ml = D-DU D-DIMER COMMENTS CRITICAL RESULTS VERIFIED, FAXED, AND CALLED TO girish ulloa @ 355pm 10-19-22 jl Procedures Date Code Description Status 04/08/2023 99038 Therapy Proc, Neuromuscular Reeducation Of Movement Completed 04/08/2023 06430 Therapy Proc 1/> Area 15Min Ea Completed 04/08/2023 03275 Manual Trial Judge 1/> Area 15 Min Each Region Completed 04/05/2023 86429 Manual Trial Judge 1/> Area 15 Min Each Region Completed 04/05/2023 10659 Therapy Proc, Neuromuscular Reeducation Of Movement Completed 04/05/2023 45583 Therapy Proc 1/> Area 15Min Ea Completed 04/03/2023 40206 Manual Trial Judge 1/> Area 15 Min Each Region Completed 04/03/2023 02800 Therapy Proc, Neuromuscular Reeducation Of Movement Completed 04/03/2023 76189 Therapy Proc 1/> Area 15Min Ea Completed 04/01/2023 52746 Therapy Proc 1/> Area 15Min Ea Completed 04/01/2023 93936 Therapy Proc, Neuromuscular Reeducation Of Movement Completed 04/01/2023 63501 Manual Trial Judge 1/> Area 15 Min Each Region Completed 03/29/2023 97474 Manual Trial Judge 1/> Area 15 Min Each Region Completed 03/29/2023 72683 Therapy Proc, Neuromuscular Reeducation Of Movement Completed 03/29/2023 64081 Therapy Proc 1/> Area 15Min Ea Completed 03/27/2023 54314 Manual Trial Judge 1/> Area 15 Min Each Region Completed 03/27/2023 89812 Therapy Proc, Neuromuscular Reeducation Of Movement Completed 03/27/2023 90861 Therapy Proc 1/> Area 15Min Ea Completed 03/25/2023 91100 Manual Trial Judge 1/> Area 15 Min Each Region Completed 03/25/2023 33283 Therapy Proc, Neuromuscular Reeducation Of Movement Completed 03/25/2023 22923 Therapy Proc 1/> Area 15Min Ea Completed 03/22/2023 60784 Manual Trial Judge 1/> Area 15 Min Each Region Completed 03/22/2023 07400 Therapy Proc 1/> Area 15Min Ea Completed 03/22/2023 10564 Therapy Proc, Neuromuscular Reeducation Of Movement Completed 03/20/2023 78233 Manual Trial Judge 1/> Area 15 Min Each Region Completed 03/20/2023 37097 Therapy Proc, Neuromuscular Reeducation Of Movement Completed 03/20/2023 57105 Therapy Proc 1/> Area 15Min Ea Completed 03/18/2023 67691 Manual Trial Judge 1/> Area 15 Min Each Region Completed 03/18/2023 23355 Therapy Proc, Neuromuscular Reeducation Of Movement Completed 03/18/2023 36699 Therapy Proc 1/> Area 15Min Ea Completed 03/15/2023 69457 Manual Trial Judge 1/> Area 15 Min Each Region Completed 03/15/2023 21989 Therapy Proc, Neuromuscular Reeducation Of Movement Completed 03/15/2023 43715 Therapy Proc 1/> Area 15Min Ea Completed 03/13/2023 04241 Physical Therapy Evaluation Moderate Complexity Completed 03/13/2023 27812 Therapy Proc 1/> Area 15Min Ea Completed 03/13/2023 08293 Manual Trial Judge 1/> Area 15 Min Each Region Completed 02/18/2023 73364 Venipuncture Routine Complet ed 11/27/2022 99683 Venipuncture Routine Complet ed 11/15/2022 00200 Venipuncture Routine Complet ed 10/29/2022 18981 Venipuncture Routine Complet ed 10/22/2022 G2012 Phone Evaluation/Management Physician 11-20 Mins Completed 10/22/2022 53628 Venipuncture Routine Complet ed 10/19/2022 81317 Venipuncture Routine Complet ed Medical Devices Description No Information Available Encounters Type Date Location Provider Dx Diagnosis Office Visit 02/22/2023 10:30a [place] Dawson Almodovar, I10 Essential (pr imary) hypertension 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 F41.1 Generalized anxiety disorder M15.0 Primary generalized (osteo)arthritis Office Visit 10/22/2022 10:30a [facility] Terrie Cox MD R60.0 Localized edema Office Visit 10/19/2022 9:30a [facility] Juany Cox MD R60.0 Localized edema I10 Essential (primary) hypertension Assessments Date Code Description Provider 04/08/2023 R26.2 Difficulty in wa lking, not elsewhere classified Aki Garcia, GABRIELLET 04/08/2023 M25.511 Pain in right shoulder Oziel Garcia, DPT 04/05/2023 R26.2 Difficulty in wa lking, not elsewhere classified Aki Garcia DPT 04/05/2023 M25.511 Pain in right shoulder Oziel Garcia, DPT 04/03/2023 R26.2 Difficulty in wa lking, not elsewhere classified Aki aGrcia DPT 04/03/2023 M25.511 Pain in right shoulder Oziel Garcia, DPT 04/01/2023 R26.2 Difficulty in wa lking, not elsewhere classified Aki Garcia DPT 04/01/2023 M25.511 Pain in right shoulder Oziel Garcia, DPT 03/29/2023 R26.2 Difficulty in wa lking, not elsewhere classified Aki Garcia DPT 03/29/2023 M25.511 Pain in right shoulder [...] Oziel Garcia, DPT 02/22/2023 I10 Essential (primary) [place] Dawson Almodovar, DO 02/22/2023 K21.9 Gastro-esophagea l reflux 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 Dawson Almodovar, DO 02/22/2023 F41.1 Generalized anxiety disorder Dawson Almodovar, DO 02/22/2023 M15.0 Primary generalized (osteo)a rthritis Dawson Almodovar, DO 02/18/2023 I10 Essential (primary) hyperten vickie Dawson Almodovar, DO 02/18/2023 I10 Essential (primary) hypertdania johnston [facility] - [place] 02/18/2023 E55.9 Vitamin D deficiency, unspec ified Dawson Almodovar, DO 02/18/2023 E55.9 Vitamin D deficiency, unspec ified Lab - [place] 02/18/2023 E53.8 Deficiency of ot her specified B group vitamins Dawson Almodovar, DO 02/18/2023 E53.8 Deficiency of ot her specified B group vitamins Lab - [place] 11/27/2022 R60.0 Localized edema Dawson A. Tayl or, DO 11/27/2022 R60.0 Localized edema Lab - [place] 11/27/2022 I10 Essential (primary) hypertdania johnston Dawson Almodovar, DO 11/27/2022 I10 Essential (primary) hyperten vickie [facility] - [place] 11/15/2022 R60.0 Localized edema Dawson A. Tayl or, DO 11/15/2022 R60.0 Localized edema [facility] [place] 11/15/2022 I10 Essential (primary) hyperten vickie Dawson Almodovar, DO 11/15/2022 I10 Essential (primary) hyperten vickie [facility] - [place] 10/29/2022 R60.0 Localized edema Dawson A. Tayl or, DO 10/29/2022 R60.0 Localized edema [facility] [place] 10/29/2022 I10 Essential (primary) hypertdania johnston Dawson Almodovar, DO 10/29/2022 I10 Essential (primary) hyperten vickie [facility] - [place] 10/22/2022 R60.0 Localized edema Dawosn A. Jose or, DO 10/22/2022 R60.0 Localized edema Mayra Cox MD 10/22/2022 I10 Essential (primary) hypertdania johnston Dawson Almodovar, DO 10/22/2022 R60.0 Localized edema [facility] [place] 10/22/2022 I10 Essential (primary) hyperten vickie [facility] - [place] 10/19/2022 R60.0 Localized edema Mayra Cox MD 10/19/2022 I10 Essential (primary) hypertdania johnston Mayra Cox MD Plan of Treatment Future Appointment(s):* 09/06/2023 10:30 am - Dawson Almodovar DO at [place] * 08/28/2023 10:30 am - [facility] [place] Functional Status Description No Information Available Mental Status Description No Information Available Referrals Description No Information Available"
--- OUTSIDE RECORDS SUMMARY | 2023-10-11 13:24 | External Medical Summary | Continuity of Care Document ---
Author Name AKI GARCIA DPT Address [address] [address] Phone [phone] Organization [facility], Address [address] [place] [address] Phone [phone] Problems Active Problems Provider Date Essential hypertension [...] SIG Qnty Indications Order ing Provider Date Sigrciecaf60au Tablets 2 tablets by mouth every day 30tabs R60.0 Fior Rodriguez MD, PhD 10/05/2022 Multi + [place]-3 Adult GummiesChewtabs 1 by mouth every day Dawson Almodovar DO 08/08/2022 Vitamin B ComplexTablets 1 by mouth every day Dawson Almodovar DO 08/08/2022 Losartan Potassium/Hydrochlorothi -84po Tablets 1 by mouth every day 90tabs I10 Dawson Almodovar, DO 03/21/2020 Juice Plus Fibre` Dawson Almodovar, DO 02/19/2018 Aspirin Adult Low Pzbj63ew Tablets DR 1 by mouth every day Unknown Citalopram Unypaebmddwp21jl Tablets 1 by mouth every day 90tabs F41.1 Dawson Almodovar, DO Vitamin D3 Maximum Yycqaldk757reu (5000 Ut) Capsules 1 by mouth once daily Unknown History Medications Mlzytbklae8ec Tablets 1 by mouth every day 30tabs R60.0 Fior Rodriguez MD, PhD 10/19/2022 - 10/19/2022 Immunizations CPT Code Status Date Vaccine Lot # [id number] Given 07/14/2009 Pneumococcal Vaccine/Pneu movax 23 [id number] Refused 10/19/2022 Shingrix 07155 Refused 08/08/2022 Pneumococcal Conjugate-Pr evnar 20 [id number] Refused 08/08/2022 Influenza Vac, Split, Preservative Free High Dose Age 65 & > 30029 Refused 04/20/2022 Moderna Sars-Co v-2 (Covid-19) vaccine, 100 mcg/ 0.5 mL 12Y+ 45228 Refused 10/16/2021 Influenza Virus Vaccine, Quadrivalent (Cciiv4), Derived From Cell 72440 Refused 10/16/2021 Shingrix 93393 Refused 10/16/2021 Pneumococcal Conjugate-Pr evnar 13 71955 Refused 03/20/2021 Pfizer Sars-Cov -2 (Covid-19) vaccine, 30mcg/0.3ML 12Y+ 30375 Refused 04/17/2019 Influenza Vacci ne, Inactivated, Subunit, Adjuvanted, For Intrmusc 42593 Refused 01/29/2019 Tdap (Tetanus, diphtheria & acel. pertussis) Adacel or Boostrix 99000 Refused 01/29/2019 Pneumococcal Conjugate-Pr evnar 13 Vital [...] H/L Range N ote CBC W/Diff 02/18/2023 [facility]. [address] [place] [address] [phone] WBC 7.6 10^3/M3 3.1-9.2 RBC 4.19 10^6/M3 3.70-5.50 HGB 12.2 GR/DL 11.5-16.1 HCT 36.6 % 34.5-47.8 MCV 87.5 CUMICR 82.6-95.8 MCH 29.1 PICOGR 27.9-32.9 MCHC 33.3 % 32.6-35.4 RDW 14.9 % High 11.4-14.6 PLT 225 10^3/M3 140-350 MPV 8.8 CUMICR 7.0-10.6 %Neut 57.1 % 40.0-75.0 %Lymph 29.4 % 17.0-45.0 %Tift 8.6 % 1.0-11.0 %Eos 3.8 % 0.0-6.0 %Baso 1.1 % 0.0-2.0 #Neut 4.4 10^3/M3 1.5-8.0 #Lymph 2.2 10^3/M3 0.8-3.2 #Tift 0.7 10^3/M3 0.0-0.8 #Eos 0.3 10^3/m3 0.0-0.4 #Baso 0.1 10^3/m3 0.0-0.2 Comp. Met 02/18/2023 [facility] [address] [place] [address] [phone] Glucose 96 mg/dL 70-110 BUN 18 mg/dL [...] 2.0-3.4 GFR 72 ML/MIN/1.73SQM >60 Lipid 02/18/2023 [facility] [address] [place] [address] [phone] Cholesterol 164 mg/dL 0-200 1 Triglyceride 79 mg/dL 0-150 2 HDLD 62 mg/dL See Comment 3 Measured LDL 99 mg/dL 0-130 4 Calc VLDL 15.8 mg/dL See Comment 5 Chol/HDL 2.6 RATIO See Comment 6 Non-HDL 102 mg/dL See Comment 7 Laboratory test finding 02/18/2023 [facility] [address] [place] [address] [phone] Vitd-25Oh 77 ng/mL 30-100 VB12 411 pg/mL 230-1050 BMP 11/27/2022 [facility] [address] [place] [address] [phone] Glucose 95 mg/dL 70-110 BUN 14 mg/dL 6-25 Creatinine 0.8 mg/dL 0.5-1.2 Sodium 136 mEq/L 135-145 Potassium 4.0 mEq/L 3.5-5.0 Chloride 97 mEq/L 95-107 Co-2 29 mEq/L 24-31 Calcium 9.8 mg/dL 8.5-10.6 GFR 72 >60 BMP 11/15/2022 [facility]. [address] [place] [address] [phone] Glucose 118 mg/dL High 70-110 BUN 14 mg/dL 6-25 Creatinine 0.9 mg/dL 0.5-1.2 Sodium 134 mEq/L Low 135-145 Potassium 3.7 mEq/L 3.5-5.0 Chloride 96 mEq/L 95-107 Co-2 27 mEq/L 24-31 Calcium 10.1 mg/dL 8.5-10.6 GFR 63 >60 BMP 10/29/2022 [facility] [address] [place] [address] [phone] Glucose 105 mg/dL 70-110 BUN 13 mg/dL 6-25 Creatinine 0.9 mg/dL 0.5-1.2 Sodium 136 mEq/L 135-145 Potassium 4.0 mEq/L 3.5-5.0 Chloride 97 mEq/L 95-107 Co-2 27 mEq/L 24-31 Calcium 9.8 mg/dL 8.5-10.6 GFR 63 >60 BMP 10/22/2022 [facility] [address] [place] [address] [phone] Glucose 104 mg/dL 70-110 BUN 13 mg/dL 6-25 Creatinine 0.9 mg/dL 0.5-1.2 Sodium 132 mEq/L Low 135-145 Potassium 3.7 mEq/L 3.5-5.0 Chloride 93 mEq/L Low 95-107 Co-2 32 mEq/L High 24-31 Calcium 10.1 mg/dL 8.5-10.6 GFR 63 >60 Comp. Met 10/19/2022 [facility] [address] [place] [address] [phone] Glucose 103 mg/dL 70-110 8 BUN 13 [...] GFR 72 >60 Laboratory test finding 10/19/2022 [facility] [address] [place], [place] [id number] [phone] BNP 30.0 pg/mL 0.0-100.0 D-Dimer 10/19/2022 [facility] [address] [place] [address] [phone] D-Dimer 1780 ng/ml Critical high 0-500 9 [...] AND FAXED TO ZARA TAN 2:16PM 10/19/22 [facility] 9 D-DIMER CONVERSION UNITS ng/ml = D-DU D-DIMER COMMENTS CRITICAL RESULTS VERIFIED, FAXED, AND CALLED TO girsih ulloa @ 355pm 10-19-22 jl Procedures Date Code Description Status 04/08/2023 95062 Therapy Proc, Neuromuscular Reeducation Of Movement Completed 04/08/2023 03162 Therapy Proc 1/> Area 15Min Ea Completed 04/08/2023 38665 Manual Secondary Spanish Teacher 1/> Area 15 Min Each Region Completed 04/05/2023 07446 Manual Secondary Spanish Teacher 1/> Area 15 Min Each Region Completed 04/05/2023 98122 Therapy Proc, Neuromuscular Reeducation Of Movement Completed 04/05/2023 16196 Therapy Proc 1/> Area 15Min Ea Completed 04/03/2023 68509 Manual Secondary Spanish Teacher 1/> Area 15 Min Each Region Completed 04/03/2023 34272 Therapy Proc, Neuromuscular Reeducation Of Movement Completed 04/03/2023 50965 Therapy Proc 1/> Area 15Min Ea Completed 04/01/2023 17495 Therapy Proc 1/> Area 15Min Ea Completed 04/01/2023 24902 Therapy Proc, Neuromuscular Reeducation Of Movement Completed 04/01/2023 80998 Manual Secondary Spanish Teacher 1/> Area 15 Min Each Region Completed 03/29/2023 67604 Manual Secondary Spanish Teacher 1/> Area 15 Min Each Region Completed 03/29/2023 66682 Therapy Proc, Neuromuscular Reeducation Of Movement Completed 03/29/2023 75124 Therapy Proc 1/> Area 15Min Ea Completed 03/27/2023 53903 Manual Secondary Spanish Teacher 1/> Area 15 Min Each Region Completed 03/27/2023 13966 Therapy Proc, Neuromuscular Reeducation Of Movement Completed 03/27/2023 37085 Therapy Proc 1/> Area 15Min Ea Completed 03/25/2023 14365 Manual Secondary Spanish Teacher 1/> Area 15 Min Each Region Completed 03/25/2023 57682 Therapy Proc, Neuromuscular Reeducation Of Movement Completed 03/25/2023 68667 Therapy Proc 1/> Area 15Min Ea Completed 03/22/2023 84280 Manual Secondary Spanish Teacher 1/> Area 15 Min Each Region Completed 03/22/2023 20484 Therapy Proc 1/> Area 15Min Ea Completed 03/22/2023 46546 Therapy Proc, Neuromuscular Reeducation Of Movement Completed 03/20/2023 93489 Manual Secondary Spanish Teacher 1/> Area 15 Min Each Region Completed 03/20/2023 95494 Therapy Proc, Neuromuscular Reeducation Of Movement Completed 03/20/2023 81950 Therapy Proc 1/> Area 15Min Ea Completed 03/18/2023 55984 Manual Secondary Spanish Teacher 1/> Area 15 Min Each Region Completed 03/18/2023 04348 Therapy Proc, Neuromuscular Reeducation Of Movement Completed 03/18/2023 40939 Therapy Proc 1/> Area 15Min Ea Completed 03/15/2023 55842 Manual Secondary Spanish Teacher 1/> Area 15 Min Each Region Completed 03/15/2023 66979 Therapy Proc, Neuromuscular Reeducation Of Movement Completed 03/15/2023 86892 Therapy Proc 1/> Area 15Min Ea Completed 03/13/2023 21139 Physical Therapy Evaluation Moderate Complexity Completed 03/13/2023 49952 Therapy Proc 1/> Area 15Min Ea Completed 03/13/2023 53971 Manual Secondary Spanish Teacher 1/> Area 15 Min Each Region Completed 02/18/2023 32084 Venipuncture Routine Complet ed 11/27/2022 72572 Venipuncture Routine Complet ed 11/15/2022 92433 Venipuncture Routine Complet ed 10/29/2022 38046 Venipuncture Routine Complet ed 10/22/2022 G2012 Phone Evaluation/Management Physician 11-20 Mins Completed 10/22/2022 64960 Venipuncture Routine Complet ed 10/19/2022 00215 Venipuncture Routine Complet ed Medical Devices Description No Information Available Encounters Type Date Location Provider Dx Diagnosis Office Visit 02/22/2023 10:30a [place] Dawson Almodovar, I10 Essential (pr imary) hypertension 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 F41.1 Generalized anxiety disorder M15.0 Primary generalized (osteo)arthritis Office Visit 10/22/2022 10:30a [facility] Terrie Cox MD R60.0 Localized edema Office Visit 10/19/2022 9:30a [facility] Juany Cox MD R60.0 Localized edema I10 [...] I10 Essential (primary) hypertdania johnston [facility] - [place] 02/18/2023 E55.9 Vitamin D deficiency, unspec ified Dawson Almodovar, DO 02/18/2023 E55.9 Vitamin D deficiency, unspec ified Lab - [place] 02/18/2023 E53.8 Deficiency of ot her specified B group vitamins Dawson Almodovar, DO 02/18/2023 E53.8 Deficiency of ot her specified B group vitamins Lab - [place] 11/27/2022 R60.0 Localized edema Dawson A. Tayl or, DO 11/27/2022 R60.0 Localized edema Lab - [place] 11/27/2022 I10 Essential (primary) hypertdania johnston Dawson Almodovar, DO 11/27/2022 I10 Essential (primary) hyperten vickie Lab - [place] 11/15/2022 R60.0 Localized edema Dawson A. Tayl or, DO 11/15/2022 R60.0 Localized edema Lab - [place] 11/15/2022 I10 Essential (primary) hyperten vickie Dawson Almodovar, DO 11/15/2022 I10 Essential (primary) hyperten vickie Lab - [place] 10/29/2022 R60.0 Localized edema Dawson A. Tayl or, DO 10/29/2022 R60.0 Localized edema Lab - [place] 10/29/2022 I10 Essential (primary) hypertdania johnston Dawson Almodovar, DO 10/29/2022 I10 Essential (primary) hyperten vickie Lab - [place] 10/22/2022 R60.0 Localized edema Dawson A. Jose or, DO 10/22/2022 R60.0 Localized edema Mayra Cox MD 10/22/2022 I10 Essential (primary) hypertdania johnston Dawson Almodovar, DO 10/22/2022 R60.0 Localized edema Lab - [place] 10/22/2022 I10 Essential (primary) hyperten vickie Lab - [place] 10/19/2022 R60.0 Localized edema Mayra Cox MD 10/19/2022 I10 Essential (primary) hypertdania johnston Mayra Cox MD Plan of Treatment Future Appointment(s):* 09/06/2023 10:30 am - Dawson Almodovar DO at [place] * 08/28/2023 10:30 am - [facility] [place] Functional Status Description No Information Available Mental Status Description No Information Available Referrals Description No Information Available"
--- NOTE | 2023-10-11 13:34 | Nephrology Consultation ---
Date of Consultation October 11, 2023 Assessment & Plan (1) Proteinuria: Presentation is concerning for acute progressive nephrosis with symptoms starting earlier this month. Any prior urine studies or measures of serum creatinine would be appreciated. Chronicity is not entirely clear. 24 hour urine for UEIP has been requested. I have also ordered a serologic evaluation including PLA2r, C3/C4, ESR, ANCA, [place], and anti-GBM. Urine microscopy demonstrates possible active urine sediment. Thankfully, creatinine is stable overnight. Continue losartan as Rx. Furosemide as needed to encourage urine output. BP improving with therapy. (2) Edema: Improving with IV furosemide. Low sodium diet. Check daily weights. Document I/O's. Compression stockings and feet elevation also encouraged. (3) Hypertension: Improving with current therapy. Continue furosemide to encourage negative fluid balance. Losartan 100 mg daily. (4) Elevated serum creatinine: Obtain records from PCP of any prior assessment. Chronicity unknown. Renal US suggestive of some underlying CKD. Recheck metabolic profile tomorrow AM. History of Present Illness Reason for Consultation: Nephrotic Syndrome, HTN Requesting Physician: Alpesh Delacruz DO Attending Physician: Alpesh Delacruz DO History of Present Illness Catrina Alvarez is an 88 year-old female with hypertension who presented to the [facility] ER yesterday with progressive edema. Nephrology consultation requested due to concerns for nephrosis. Serum creatinine measured at 1.5-1.6 mg/dL. Random assessment demonstrating >13650 mcg/mg albuminuria. UA is notable for 4+ protein, 2+ blood, and +1 LE. Microscopy demonstrating 10-30 WBC, >30 RBC, hyaline casts, and epithelial cells. Renal US demonstrated bilateral cortical atrophy without concerning lesions or evidence of obstruction. No prior values for serum creatinine or urine protein were available. Catrina had been maintained on furosemide which her PCP recently switched to torsemide 40 mg daily without improvement in edema. She has been maintained on losartan-HCTZ for her BP. Symptoms started earlier this month with swelling in the feet and ankles. She has also noted some progressive TRACY and decreased activity tolerance. Urine has been foamy. She has not experienced any recent infections. She denies NSAID use. There is no family history of kidney disease. Catrina presented with accelerated BP but states that she has been asymptomatic in this regard. She remains on losartan 100 mg daily. A dose of hydralazine was also provided in the ER. She is diuresing with furosemide 40 mg IV. TTE demonstrated normal LVEF at 60-65%, mild LVH, and no valvular heart disease. Serum albumin measured at 2.8 g/dL. Allergies Allergy/AdvReac Type Severity Reaction Status Date / Time Unable to Assess Allergy Unverified 10/11/23 04:30 Home Medications Medication Instructions Recorded Confirmed Type Vitamin D3 5,000 unit PO DAILY 10/10/23 10/11/23 History aspirin 81 mg PO DAILY 10/10/23 10/10/23 History citalopram 20 mg tablet 20 mg PO DAILY 10/10/23 10/10/23 History losartan 100 1 tab PO DAILY 10/10/23 10/10/23 History mg-hydrochlorothiazide 25 mg tablet torsemide 20 mg tablet 40 mg PO DAILY 10/10/23 10/10/23 History vitamin B complex 1 tab PO DAILY 10/10/23 10/10/23 History Patient History Medical History Hypertension Surgical History History of tonsillectomy Social History Smoking Status: Never smoker Hx Alcohol Use: No Hx Substance Use: No Preferred Language: Wallisian Communication Ability: Effective Special Education Math Teacher Required: No Beliefs That Will Affect Care: None Current Living Situation: Spouse Other Information That Helps Us Care for You: No Feels Safe at Home: Yes Safety Concerns: Feels Safe At This Time Assistive Devices: Walker Review of Systems Review of Systems: All systems reviewed & are unremarkable except as noted in HPI & below Physical Exam Constitutional: well developed; no acute distress Eyes: no scleral abnormality and no corneal abnormality ENMT: Mouth: no oral mucosal abnormality and oral mucous membranes not dry Neck: normal visual inspection and trachea midline Respiratory: normal respiratory effort Auscultation: lungs clear to auscultation bilaterally Cardiovascular: Rate/Rhythm: regular rate Heart Sounds: normal S1 and normal S2 Extremities: + edema Musculoskeletal: Extremities: no cyanosis and no clubbing Skin: normal turgor; no lesions Neurologic: Motor/Sensory: no tremor and no asterixis Psychiatric: Orientation: alert and oriented x 3 Results & Data Vital Signs (Past 12 Hours) Vital Signs Temp Pulse Pulse Resp BP Pulse Ox O2 Del Method 10/11/23 07:05 64 10/11/23 06:00 74 17 146/69 H 96 Room Air 10/11/23 05:00 68 17 110/59 L 93 Room Air 10/11/23 04:00 78 15 193/98 H 96 10/11/23 03:14 36.7 C 72 18 95 Room Air 10/11/23 03:04 74 18 213/107 H 97 Room Air 10/11/23 02:37 70 Diagnostic Findings ULTRASOUND KIDNEYS AND BLADDER Kidneys: The kidneys demonstrate mild cortical atrophy. Echotexture is normal. The right kidney measures 10.3 cm in length and the left kidney measures 10.4 cm in length. There is no hydronephrosis. No shadowing renal calculi are identified. There is no sonographic evidence of contour deforming renal mass lesion. No perinephric fluid is identified. Bladder: The bladder is largely decompressed and grossly unremarkable. Bilateral ureteral jets were seen. IMPRESSION: 1. The kidneys demonstrated cortical atrophy and are without hydronephrosis. 2. The bladder is decompressed and grossly unremarkable. SINGLE VIEW CHEST There are calcified mediastinal lymph nodes. The heart is enlarged noting atherosclerotic calcification of the thoracic aorta. The pulmonary vasculature is noncongested. There is mild bibasilar scarring/atelectasis. Scattered calcified granulomas are observed. The lungs and pleural spaces are otherwise clear. No pneumothorax is seen. The skeletal structures are osteopenic. The bony thorax is grossly intact. Advanced arthritic change is noted in the shoulders. IMPRESSION: No acute cardiopulmonary abnormality is identified. PG Care Time/CCT Total # of Minutes Spent Total Time Spent with Patient: Total time spent is greater than 50% in coordination of care (as documented) at patient's floor/unit and/or counseling patient: Coding Level of Care Code 62237 IN/OBS CONSULT LVL 4,60M Diagnoses Proteinuria R80.9 Edema R60.9 Hypertension I10 Elevated serum creatinine R79.89
--- NOTE | 2023-10-11 14:34 | XCELERA ---
[id number] \\[id number]}___[id number].pdf
[2023-10-11 17:27] LABS: Potassium 4.1 mmol/L (3.5-5.1)
[2023-10-11 17:32] LABS: BUN Creatinine Ratio 26.7 (10-20); Creatinine Clr Calc Pharmacy 22.2 ml/min; Est GFR (African American) 25.1 ml/min; Est GFR (Non-African American) 21.6 ml/min
--- NOTE | 2023-10-11 18:24 | Hospitalist Progress Note ---
Date of Service October 11, 2023 Assessment & Plan (1) Hypertension: Plan: Patient with markedly elevated blood pressure. She is compliant with her home medications - HCTZ, Losartan and most recently Torsemide. No prior visits to compare blood pressure trend but she has been well over 200mmHg since being here. No report of chest pain, SOB, abdominal pain, numbness/weakness. She developed a ROMERO after placement of Nitro. Uncertain if patient's blood pressure is so poorly controlled at baseline. -Admit to medical with telemetry -Continue home Losartan 100mg po daily -Will hold HCTZ, consider readding if inadequate diuresis is achieved -Lasix 40mg IV BID -Hydralazine PRN -Edema plan as below (2) Edema: Plan: Patient with anasarca - edema of legs, thighs, abdominal wall as well as swelling of her hands and face. She has low serum Albumin at 2.6. Cr=1.66, unknown baseline -Check UA - ?nephrotic syndrome causing patient's anasarca, markedly elevated blood pressure and low serum protein and albumin? -Urine protein elevated as well as low albumin and elevated lipids. Clinical picture consistent with nephrotic syndrome. -Nephrology consulted, appreciate recommendations -Echocardiogram demonstrating EF of 60 to 65% with only mild left ventricular hypertrophy. No other abnormalities noted. -Diuresis with Lasix 40mg IV BID - may need to increase this -Monitor I/Os -Bladder scan and straight cath as needed -Monitor daily weights (3) Hyperlipidemia: Plan: - Lipid panel demonstrating total cholesterol greater than 200. -Patient is 88 years old without history of CAD or previous SD, no statin indicated given age Plan Disposition: MedSur for proteinuria workup Diet: Low-sodium, heart healthy DVT prophylaxis: Heparin CODE STATUS: DNR/DNI Admission and Anticipated Discharge Date Admission Date: October 11, 2023 Supervising Physician Co-Signing Physician Notes I personally examined the patient and verified all trujillo points of history and exam, discussed case, and agree with decision making with Dr Monge Still swollen. Not a lot of urine output. Extensive discussion with patient and daughter. Discussed with nephrology as well. Input appreciated. Vitals noted, in general she is awake and alert pleasant no distress. HEENT normocephalic atraumatic mucous membranes moist. Breathing unlabored no accessory muscle use good effort. Skin shows no rashes no pallor or icterus. Neuro without focal deficits. Hypertension/proteinuria/edemacertainly concerning for nephrotic syndromeappreciate nephrology assistance. Managing blood pressurecontrol improving. Try to affect diuresisincrease Lasix. Hopefully home once creatinine clearly stable, edema improving, and blood pressure reasonable. DVT proph - heparin SQ Subjective Patient seen at bedside this morning. No acute events reported overnight. Patient overall feeling well and denying any headaches, vision changes, or chest pain. No shortness of breath as well. She has noticed bodily swelling over the past 2 to 3 weeks and had decided to finally get evaluated when her blood pressures at home are consistently above the 200 Systolic. Overall doing well and eating and drinking without difficulty. No new concerns at this time. Review of Systems Review of Systems: Per HPI Physical Exam Constitutional: WD/WN, vitals as above Eyes: + anicteric sclerae Neck: trachea midline, no thyromegaly Respiratory: normal respiratory effort, lungs clear to auscultation Cardiovascular: Rate/Rhythm: regular rate and regular rhythm Gastrointestinal (Abdomen): normal bowel sounds, soft, nontender, no hepatosplenomegaly Musculoskeletal: Head/Neck/Chest: normocephalic and head atraumatic Skin: no rashes, warm and dry Diffuse body swelling with lower extremity edema being greater than upper extremity Neurologic: moves all extremities Psychiatric: A+Ox3, euthymic affect Results & Data Results & Data Vital Signs (Past 12 Hours) Vital Signs Pulse Pulse Resp BP Pulse Ox O2 Del Method 10/11/23 17:08 82 18 176/79 H 97 Room Air 10/11/23 15:39 79 10/11/23 07:05 64
[2023-10-11] MEDS: FUROSEMIDE 40 MG/4 ML VIAL IV ONE (18:58)
--- NOTE | 2023-10-11 19:18 | Billing Data ---
Date of Service October 11, 2023 Coding Level of Care Code 82852 SUB INP/OBS CARE
[2023-10-12 07:19] LABS: Hematocrit (blood only) 32.8 % (37.0-47.0); Hemoglobin 10.9 g/dl (12.0-16.0); Mean Corpuscular Hemoglobin 29.2 pg (25.0-34.0); Mean Corpuscular Hgb Conc 33.2 g/dL (32.0-36.0); Mean Corpuscular Volume 87.9 fL (80.0-100.0); Mean Platelet Volume 10.2 fL (9.4-12.4); Platelet Count 230 K/uL (130-400); RDW Coefficient of Variation 13.2 % (11.5-14.5); RDW Standard Deviation 42.6 fL (36.4-46.3); Red Blood Count 3.73 M/uL (4.20-5.40); White Blood Count 6.85 K/ul (4.8-10.8)
[2023-10-12 07:40] LABS: Albumin Level 2.4 gm/dl (3.4-5.0); BUN Creatinine Ratio 28.4 (10-20); Bilirubin,Total 0.4 mg/dl (0.2-1.0); Creatinine Clr Calc Pharmacy 21.6 ml/min; Est GFR (African American) 24.8 ml/min; Est GFR (Non-African American) 21.4 ml/min; Globulin 2.4 gm/dl (2.5-4.0); Potassium 4.1 mmol/L (3.5-5.1); Total Protein 4.8 gm/dl (6.0-8.3)
--- NOTE | 2023-10-12 08:49 | Hospitalist Progress Note ---
Date of Service October 12, 2023 Assessment & Plan (1) Edema: Plan: -Patient with anasarca - edema of legs, thighs, abdominal wall as well as swelling of her hands and face -Low serum albumin at 2.6 -Cr= 1.66 on admission, unknown baseline -Urine protein elevated as well as low albumin and elevated lipids, clinical picture consistent with nephrotic syndrome -Echocardiogram demonstrating EF of 60 to 65% with only mild left ventricular hypertrophy. No other abnormalities noted -Nephrology consulted and following -COVID, hepatitis testing ordered -Steroid therapy initiated -Noted Cr increase from 1.56 to 2 on 10/11, now stable ~2 -Continue diuresis- Lasix 40 mg IV BID increased to 80 mg IV BID today -Monitor I/O's, San catheter inserted today (2) Hypertension: Plan: -Noted elevated BP > 200 on admission and shortly thereafter -Continue home losartan -Holding home HCTZ given diuresis with Lasix -Edema plan as above (3) Hyperlipidemia: Plan: - Lipid panel demonstrating total cholesterol greater than 200. -Patient is 88 years old without history of CAD or previous AK, no statin indicated given age Plan Disposition: Medical/surgical Diet: Low-sodium, heart healthy DVT prophylaxis: Heparin CODE STATUS: DNR/DNI Admission and Anticipated Discharge Date Admission Date: October 11, 2023 Supervising Physician Co-Signing Physician Notes I personally examined the patient and verified all trujillo points of history and exam, discussed case, and agree with decision making with Dr Westfall Swelling improving in hands and face, not really in legs. No other new complaints. Was able to reach out to PCPs officebaseline creatinine appears to be 0.70.9, most recent about 10 days ago was 1.2. Nephrology input appre ciated. Vitals noted, in general she is awake and alert pleasant no distress. HEENT normocephalic atraumatic mucous membranes moist. Minimal to no hand and face edema, does still have bilateral lower extremity edema probably 12+, improved because she is currently wearing compression stockings limiting exam. Hypertension/proteinuria/edemacertainly concerning for nephrotic syndromeappreciate nephrology assistance. Creatinine stabilizedbut definitely higher than it wasto the point that it really is reasonable to look at this as at least an ROMY, if not acute renal failure related to nephrotic syndromesteroids started. Continue med management. DVT proph - heparin SQ Subjective Acute events overnight- none. Pt examined at bedside. Feels well overall but has not urinated overnight. Denies any worsening symptoms including dyspnea or further swelling. Review of Systems Review of Systems: Per HPI Physical Exam Constitutional: WD/WN, vitals as above Eyes: + anicteric sclerae Neck: trachea midline, no thyromegaly Respiratory: normal respiratory effort, lungs clear to auscultation Cardiovascular: Rate/Rhythm: regular rate and regular rhythm Gastrointestinal (Abdomen): normal bowel sounds, soft, nontender, no hepatosplenomegaly Musculoskeletal: Head/Neck/Chest: normocephalic and head atraumatic Skin: no rashes, warm and dry Diffuse body swelling with lower extremity edema greater than upper extremity Neurologic: moves all extremities Psychiatric: A+Ox3, euthymic affect Results & Data Results & Data Vital Signs (Past 12 Hours) Vital Signs Temp Pulse Pulse Resp BP BP Pulse Ox 10/12/23 07:55 88 10/12/23 07:27 36.8 C 82 18 178/96 H 95 10/12/23 03:54 37.3 C 78 16 174/76 H 96 10/12/23 00:27 80 10/11/23 22:51 36.8 C 87 18 147/77 H 95 O2 Del Method 10/12/23 07:55 10/12/23 07:27 Room Air 10/12/23 03:54 Room Air 10/12/23 00:27 10/11/23 22:51 Room Air Resident Activity Tracking Resident Involvement: Resident Care Provided Care Provided: Adult Hospital Medicine
--- NOTE | 2023-10-12 09:04 | Nephrology Progress Note ---
Date of Service October 12, 2023 Assessment & Plan (1) Proteinuria: Plan: * Inflammatory urine sediment w/ pyuria, hematuria * Repeat urine microscopy, place San catheter and obtain urine culture * 24 hour urine for UEIP has been requested. I have also ordered a serologic evaluation including PLA2r, C3/C4, ESR, ANCA, [place], and anti-GBM. * Continue losartan. Cr remains stable at 2.0 * Continue Furosemide 80 mg IV BID. Monitor I&O, wt * Urine sediment appears inflammatory. Ddx is broad and includes NONA, FSGS, Membranous Nephropathy, MPGN. Will order COVID and hepatitis testing. Will begin moderate dose steroid therapy while awaiting results of laboratory testing (2) Edema: Plan: * Improving with IV furosemide. * Continue low sodium diet. * Check daily weights. * Document I/O's (3) Hypertension: Plan: * Improving with current therapy. * Continue furosemide to encourage negative fluid balance. * Continue Losartan, Hydralazine (4) Elevated serum creatinine: Plan: * Obtain records from PCP. Chronicity unknown but patient reports "normal labs" 09/18. * Renal US suggestive of some underlying CKD Admission and Anticipated Discharge Date Admission Date: October 11, 2023 Subjective Mrs. Alvarez was evaluated in her hospital room this morning. She was incontinent of urine overnight. staffing consultant has placed a San catheter. Patient reports that [place] She has no prior h/o kidney disease. She denies any recent ill contacts. Mrs. Alvarez reports persistent LE swelling this am Review of Systems Constitutional: no fever Eyes: no problem reported Ear, Nose, Mouth, Throat: no problem reported Respiratory: no cough and no dyspnea Cardiovascular: no chest pain Gastrointestinal: no abdominal pain, no nausea, no vomiting and no diarrhea/loose stools Genitourinary: no dysuria, no hematuria and no flank pain Integumentary: no rash Neurologic: no localized weakness Physical Exam Constitutional: well developed and well nourished; not in distress Eyes: PERRL, conjunctivae normal, anicteric sclerae ENMT: external ear and nose normal, oropharynx normal Neck: trachea midline, no thyromegaly Respiratory: normal respiratory effort, lungs clear to auscultation Cardiovascular: Rate/Rhythm: regular rate and regular rhythm Extremities: + edema (2+ pretibial pitting edema) Gastrointestinal (Abdomen): normal bowel sounds, soft, nontender, no hepatosplenomegaly Skin: no rashes, warm and dry Neurologic: Speech / Cognition: normal speech and normal cognition Psychiatric: Affect: euthymic affect Results & Data Vital Signs (Past 12 Hours) Vital Signs Temp Pulse Pulse Resp BP BP Pulse Ox 10/12/23 07:55 88 10/12/23 07:27 36.8 C 82 18 178/96 H 95 10/12/23 03:54 37.3 C 78 16 174/76 H 96 10/12/23 00:27 80 10/11/23 22:51 36.8 C 87 18 147/77 H 95 O2 Del Method 10/12/23 07:55 10/12/23 07:27 Room Air 10/12/23 03:54 Room Air 10/12/23 00:27 10/11/23 22:51 Room Air Laboratory Results Laboratory Results - last 24 hr 10/11/23 10/11/23 10/12/23 12:05 17:03 06:30 WBC 6.85 RBC 3.73 L Hgb 10.9 L Hct 32.8 L MCV 87.9 MCH 29.2 MCHC 33.2 RDW Std Deviation 42.6 RDW Coeff of Maricel 13.2 Plt Count 230 MPV 10.2 ESR 68 H Sodium 128 L 131 L Potassium 4.1 D 4.1 Chloride 98 99 Carbon Dioxide 24 26 Anion Gap 6 6 BUN 54 H 58 H Creatinine 2.02 H D 2.04 H Est Cr Clr Drug Dosing 22.2 21.6 Est GFR ( Amer) 25.1 24.8 Est GFR (Non-Af Amer) 21.6 21.4 BUN/Creatinine Ratio 26.7 H 28.4 H Glucose 131 H 101 H Calcium 8.0 L 8.0 L Total Bilirubin 0.4 AST 17 ALT 10 Alkaline Phosphatase 54 Total Protein 4.8 L Total Protein (PEP) Pending Albumin 2.4 L Albumin (PEP) Pending Globulin 2.4 L Albumin/Globulin Ratio 1.0 [id number] Pending Cohni-5-Ruyrbjqau Pending Tejr-7-Azoldawt Pending [id number] Pending Gamma Globulins Pending Monoclonal Peak 3 Pending Ser Monoclonl Protein Pending Ser Monoclonal Prot 2 Pending PEP Interpretation Pending Serum Immunofixation Pending [place] Screen Pending Anti-Proteinase 3 Pending Anti-Myeloperoxidase Pending ANCA Pending Glomerular Base Memb Ab Pending Complement C3 Pending Complement C4 Pending Tot Complement (CH50) Pending Phospholip A2 Rec IFA Pending Phospholip A2 Rec GRACIELA Pending 10/10/23 CXR - No acute cardiopulmonary abnormality is identified. 10/11/23 urine culture - contaminated Diagnostic Findings 10/11/23 Renal US: Kidneys: The kidneys demonstrate mild cortical atrophy. Echotexture is normal. The right kidney measures 10.3 cm in length and the left kidney measures 10.4 cm in length. There is no hydronephrosis. No shadowing renal calculi are identified. There is no sonographic evidence of contour deforming renal mass lesion. No perinephric fluid is identified. Bladder: The bladder is largely decompressed and grossly unremarkable. Bilateral ureteral jets were seen. PG Care Time/CCT Total # of Minutes Spent Total Time Spent with Patient: Total time spent is greater than 50% in coordination of care (as documented) at patient's floor/unit and/or counseling patient: Coding Level of Care Code 37397 SUB INP/OBS CARE 3/50MIN Diagnoses Proteinuria R80.9 Edema R60.9 Hypertension I10 Elevated serum creatinine R79.89
[2023-10-12] MEDS: FUROSEMIDE 40 MG/4 ML VIAL IV SCH (09:18)
[2023-10-12] MEDS: PANTOprazole 40 MG TAB PO SCH (12:26)
[2023-10-12] MEDS: predniSONE 20 MG TAB PO SCH (12:26)
--- NOTE | 2023-10-12 14:33 | Billing Data ---
Date of Service October 12, 2023 Coding Level of Care Code 22606 SUB INP/OBS CARE
[2023-10-13 06:13] LABS: Hematocrit (blood only) 32.8 % (37.0-47.0); Hemoglobin 10.9 g/dl (12.0-16.0); Mean Corpuscular Hgb Conc 33.2 g/dL (32.0-36.0); Mean Corpuscular Volume 87.2 fL (80.0-100.0); Mean Platelet Volume 9.9 fL (9.4-12.4); Platelet Count 229 K/uL (130-400); RDW Coefficient of Variation 13.2 % (11.5-14.5); RDW Standard Deviation 42.4 fL (36.4-46.3); Red Blood Count 3.76 M/uL (4.20-5.40)
[2023-10-13 06:37] LABS: Albumin Level 2.5 gm/dl (3.4-5.0); BUN Creatinine Ratio 29.6 (10-20); Bilirubin,Total 0.3 mg/dl (0.2-1.0); Creatinine Clr Calc Pharmacy 19.1 ml/min; Est GFR (African American) 21.4 ml/min; Est GFR (Non-African American) 18.5 ml/min; Globulin 2.4 gm/dl (2.5-4.0); Potassium 4.5 mmol/L (3.5-5.1); Total Protein 4.9 gm/dl (6.0-8.3)
--- NOTE | 2023-10-13 09:22 | Nephrology Progress Note ---
Date of Service October 13, 2023 Assessment & Plan (1) Proteinuria: Plan: * Inflammatory urine sediment w/ pyuria, hematuria. Ddx is broad and includes NONA, FSGS, Membranous Nephropathy, MPGN, amyloidosis, RVT * No flank pain, gross hematuria to suggest RVT * 10/12/23 COVID - negative * SIEP/UIEP - pending * PLA2r, C3/C4, ESR, ANCA, [place], anti-GBM, Hep B/C - pending * Continue Losartan * Continue Furosemide 80 mg IV BID. Monitor I&O, wt * Prednisone started 10/12/23. Patient denies any side effect. Continue Prednisone 20 mg TID * Will repeat urinalysis, urine microscopy and culture to check for cellular casts, infection (2) Edema: Plan: * Improving with IV furosemide. * Continue low sodium diet. * I&O - not yet available * Weight improved from 100 kg on admission to 96.9 kg this morning (3) Hypertension: Plan: * Improving with current therapy. * Continue Furosemide to encourage diuresis * Continue Losartan, Hydralazine (4) Elevated serum creatinine: Plan: * Obtain records from PCP. Chronicity unknown but patient reports "normal labs" 09/18. * Renal US suggestive of some underlying CKD Admission and Anticipated Discharge Date Admission Date: October 11, 2023 Subjective Mrs. Alvarez was evaluated in her hospital room this morning. She reports a h/o LE swelling in 12/16. At that time PCP provided Furosemide for PRN use and advised patient to wear LE compression stockings. She is wearing her stockings this morning but notes that her legs remain more swollen than usual Review of Systems Constitutional: no fever Eyes: no problem reported Ear, Nose, Mouth, Throat: no problem reported Respiratory: no cough and no dyspnea Cardiovascular: no chest pain Gastrointestinal: no abdominal pain, no nausea, no vomiting and no diarrhea/loose stools Genitourinary: no dysuria, no hematuria and no flank pain Integumentary: no rash Neurologic: no localized weakness Physical Exam Constitutional: well developed and well nourished; not in distress Eyes: PERRL, conjunctivae normal, anicteric sclerae ENMT: external ear and nose normal, oropharynx normal Neck: trachea midline, no thyromegaly Respiratory: normal respiratory effort, lungs clear to auscultation Cardiovascular: Rate/Rhythm: regular rate and regular rhythm Extremities: + edema (2+ pretibial pitting edema) Gastrointestinal (Abdomen): normal bowel sounds, soft, nontender, no hepatosplenomegaly Skin: no rashes, warm and dry Neurologic: Speech / Cognition: normal speech and normal cognition Psychiatric: Affect: euthymic affect Results & Data Vital Signs (Past 12 Hours) Vital Signs Temp Pulse Pulse Resp BP BP Pulse Ox 10/13/23 07:39 36.7 C 78 16 177/91 H 96 10/12/23 22:52 144/84 H 10/12/23 22:46 36.9 C 81 14 94 O2 Del Method 10/13/23 07:39 Room Air 10/12/23 22:52 10/12/23 22:46 Room Air Laboratory Results Laboratory Results - last 48 hr 10/11/23 10/11/23 10/12/23 12:05 17:03 06:30 WBC 6.85 RBC 3.73 L Hgb 10.9 L Hct 32.8 L MCV 87.9 MCH 29.2 MCHC 33.2 RDW Std Deviation 42.6 RDW Coeff of Maricel 13.2 Plt Count 230 MPV 10.2 ESR 68 H Sodium 128 L 131 L Potassium 4.1 D 4.1 Chloride 98 99 Carbon Dioxide 24 26 Anion Gap 6 6 BUN 54 H 58 H Creatinine 2.02 H D 2.04 H Est Cr Clr Drug Dosing 22.2 21.6 Est GFR ( Amer) 25.1 24.8 Est GFR (Non-Af Amer) 21.6 21.4 BUN/Creatinine Ratio 26.7 H 28.4 H Glucose 131 H 101 H Calcium 8.0 L 8.0 L Total Bilirubin 0.4 AST 17 ALT 10 Alkaline Phosphatase 54 Total Protein 4.8 L Albumin 2.4 L Globulin 2.4 L Albumin/Globulin Ratio 1.0 SARS-CoV-2, RNA, NAAT 10/12/23 10/13/23 10:45 05:36 WBC 7.00 RBC 3.76 L Hgb 10.9 L Hct 32.8 L MCV 87.2 MCH 29.0 MCHC 33.2 RDW Std Deviation 42.4 RDW Coeff of Maricel 13.2 Plt Count 229 MPV 9.9 ESR Sodium 127 L Potassium 4.5 Chloride 97 L Carbon Dioxide 24 Anion Gap 6 BUN 68 H Creatinine 2.30 H Est Cr Clr Drug Dosing 19.1 Est GFR ( Amer) 21.4 Est GFR (Non-Af Amer) 18.5 BUN/Creatinine Ratio 29.6 H Glucose 135 H Calcium 8.0 L Total Bilirubin 0.3 AST 18 ALT 10 Alkaline Phosphatase 53 Total Protein 4.9 L Albumin 2.5 L Globulin 2.4 L Albumin/Globulin Ratio 1.0 SARS-CoV-2, RNA, NAAT NEGATIVE PG Care Time/CCT Total # of Minutes Spent Total Time Spent with Patient: Total time spent is greater than 50% in coordination of care (as documented) at patient's floor/unit and/or counseling patient: Coding Level of Care Code 37976 SUB INP/OBS CARE 3/50MIN Diagnoses Proteinuria R80.9 Edema R60.9 Hypertension I10 Elevated serum creatinine R79.89
[2023-10-13 10:29] LABS: Appearance Urine Cloudy (Clear); Bilirubin Urine Negative (Negative); Blood Urine 3+ (Negative); Color Urine Yellow; Epithelial Cell Urine Auto >30 /lpf (0-5); Glucose Urine UA Negative (Negative); Ketones Urine Negative (Negative); Leukocyte Esterase Urine Negative (Negative); Nitrite Urine Negative (Negative); Protein Urine 4+ (Negative); Specific Gravity Urine 1.021 (1.000-1.030); Urobilinogen Urine Negative (Negative); pH Urine 5.5 (4.5-7.5)
[2023-10-13 11:02] LABS: Mucus Urine Present (None Prsent); RBC Urine Automated >30 /hpf (0-4)
[2023-10-13 11:03] LABS: Bacteria Urine Automated 1+ (Negative)
[2023-10-13 11:04] LABS: Amorphous Sediment Urine Present (None Prsent)
[2023-10-13 11:07] LABS: Creatinine Urine Random 143.9 mg/dl; Protein Creatinine Ratio Urine 6.8 (0-0.2); Total Protein Urine Random 972.7 mg/dl (0-11.9)
--- NOTE | 2023-10-13 11:14 | Hospitalist Progress Note ---
Date of Service October 13, 2023 Assessment & Plan (1) Edema: Plan: -Patient with anasarca - edema of legs, thighs, abdominal wall as well as swelling of her hands and face -Low serum albumin at 2.6 -Cr= 1.66 on admission, unknown baseline -Urine protein elevated as well as low albumin and elevated lipids, clinical picture consistent with nephrotic syndrome -Echocardiogram demonstrating EF of 60 to 65% with only mild left ventricular hypertrophy. No other abnormalities noted -Nephrology consulted and following -COVID negative -Hepatitis testing pending -Serum/urine protein electrophoresis pending -Complement, [place], ESR, ANCA, anti-GBM, PLA2r pending -Steroid therapy initiated on 10/12- escalated to prednisone 20 mg TID today -Noted Cr increase from 2 to 2.3 today -Continue diuresis- Lasix 40 mg IV BID increased to 80 mg IV BID on 10/12, will continue for now despite Cr increase -Improvement noted with increased diuretic thus far -Monitor I/O's, San catheter inserted 10/12 (2) Hypertension: Plan: -Noted elevated BP > 200 on admission and shortly thereafter, though now improved -Continue home losartan -Holding home HCTZ given diuresis with Lasix -Edema plan as above (3) Hyperlipidemia: Plan: - Lipid panel demonstrating total cholesterol greater than 200. -Patient is 88 years old without history of CAD or previous MD, no statin indicated given age Plan Disposition: Medical/surgical Diet: Low-sodium, heart healthy DVT prophylaxis: Heparin CODE STATUS: DNR/DNI Admission and Anticipated Discharge Date Admission Date: October 11, 2023 Supervising Physician Co-Signing Physician Notes I personally examined the patient and verified all trujillo points of history and exam, discussed case, and agree with decision making with Dr Westfall Feels okay. No significant steroid side effects. Family presentanswered all questions to the best of my ability satisfaction. Feels like swelling has improved some. Seen at the same time as nephrologyinput greatly appreciated. Vitals noted, in general she is awake and alert pleasant no distress. HEENT normocephalic atraumatic mucous membranes moist. Breathing unlabored no accessory muscle use good effort. Skin shows no rashes no pallor or icterus. Neuro without focal deficits. Hypertension/proteinuria/edema/active urine sedimentcertainly concerning for nephritis and nephrotic syndromeappreciate nephrology assistance. Baseline creatinine 0.70.9, most recent about 11 days ago at PCP was 1.2now up to 2.3. Nephrology increasing steroids, continue diuresis, continue to follow closely. DVT proph - heparin SQ Subjective Acute events overnight- none. Pt examined at bedside. Reports some improvement in swelling after diuretics were increased. No other acute complaints. Review of Systems Review of Systems: Per HPI Physical Exam Constitutional: WD/WN, vitals as above Eyes: + anicteric sclerae Neck: trachea midline, no thyromegaly Respiratory: normal respiratory effort, lungs clear to auscultation Cardiovascular: Rate/Rhythm: regular rate and regular rhythm Gastrointestinal (Abdomen): normal bowel sounds, soft, nontender, no hepatosplenomegaly Musculoskeletal: Head/Neck/Chest: normocephalic and head atraumatic Skin: no rashes, warm and dry Diffuse body swelling with lower extremity edema greater than upper extremity- noted improvement in upper extremity + facial swelling today, mildly decreased edema of b/l LE- 1+ Neurologic: moves all extremities Psychiatric: A+Ox3, euthymic affect Results & Data Results & Data Vital Signs (Past 12 Hours) Vital Signs Temp Pulse Resp BP Pulse Ox O2 Del Method 10/13/23 07:39 36.7 C 78 16 177/91 H 96 Room Air
[2023-10-13] MEDS: predniSONE 20 MG TAB PO SCH (13:58)
--- NOTE | 2023-10-13 15:56 | Billing Data ---
Date of Service October 13, 2023 Coding Level of Care Code 95939 SUB INP/OBS CARE
[2023-10-13] MEDS: FUROSEMIDE 40 MG/4 ML VIAL IV SCH (18:19)
[2023-10-13] MEDS: hydrALAZINE HCL 25 MG TAB PO PRN (21:44)
--- NOTE | 2023-10-14 08:49 | Nephrology Progress Note ---
Date of Service October 14, 2023 Assessment & Plan (1) Acute kidney injury: Plan: * Baseline Cr 0.9 09/18 according to hospitalist service. Will request medical records from PCP * Inflammatory urine sediment w/ pyuria, hematuria, cellular casts. Ddx is broad and includes NONA, FSGS, Membranous Nephropathy, MPGN, amyloidosis, RVT * No flank pain, gross hematuria to suggest RVT * 10/12/23 COVID - negative * SIEP/UIEP - pending * PLA2r, C3/C4, ESR, ANCA, [place], anti-GBM, Hep B/C - pending * Creatinine has now risen to 2.7. Weight is down 3kg and LE edema is mildly improved * Stop Losartan. Monitor PRP * Reduce Furosemide to 80 mg IV daily. Monitor I&O, wt * Continue Prednisone 20 mg po TID (started 10/12/23). Await results of serologic testing * Discussed indications for renal biopsy and GASOLINE PUMP INSTALLER w/ patient today. She reports that she is 88 years of age and is uncertain whether she would desire transfer to a tertiary care facility for biopsy or aggressive measures such as HD. She wishes to discuss w/ her family and continue w/ conservative medical management for now (2) Hypertension: Plan: * BP remains elevated * Stop Losartan due to progressive renal dysfunction * Substitute Labetalol 100 mg po BID for Losartan and schedule Hydralazine 25 mg TID (3) Edema: Plan: * Weight is down 3 kg since admission. Still has 1+ pretibial pitting edema * Continue low sodium diet, compression stockings * Keep San catheter in place to monitor I&O's * Will reduce Furosemide to 80 mg IV daily Admission and Anticipated Discharge Date Admission Date: October 11, 2023 Subjective Mrs. Alvarez was evaluated in her hospital room this morning. She reports that she feels well. Her LE swelling is mildly improved. Weight is down 3 kg since admission. She continues to wear compression stockings Review of Systems Constitutional: no fever Eyes: no problem reported Ear, Nose, Mouth, Throat: no problem reported Respiratory: no cough and no dyspnea Cardiovascular: no chest pain Gastrointestinal: no abdominal pain, no nausea, no vomiting and no diarrhea/loose stools Genitourinary: no dysuria, no hematuria and no flank pain Integumentary: no rash Neurologic: no localized weakness Physical Exam Constitutional: well developed and well nourished; not in distress Eyes: PERRL, conjunctivae normal, anicteric sclerae ENMT: external ear and nose normal, oropharynx normal Neck: trachea midline, no thyromegaly Respiratory: normal respiratory effort, lungs clear to auscultation Cardiovascular: Rate/Rhythm: regular rate and regular rhythm Extremities: + edema (1+ pretibial pitting edema) Gastrointestinal (Abdomen): normal bowel sounds, soft, nontender, no hepatosplenomegaly Skin: no rashes, warm and dry Neurologic: Speech / Cognition: normal speech and normal cognition Psychiatric: Affect: euthymic affect Results & Data Vital Signs (Past 12 Hours) Vital Signs Temp Pulse Resp BP Pulse Ox O2 Del Method 10/14/23 08:14 36.9 C 81 15 183/83 H 96 Room Air Laboratory Results Laboratory Results - last 24 hr 10/13/23 10/14/23 Unknown 08:36 PT 10.1 INR 0.9 Sodium 127 L Potassium 4.6 Chloride 95 L Carbon Dioxide 23 Anion Gap 9 BUN 84 H Creatinine 2.78 H D Est Cr Clr Drug Dosing 15.8 Est GFR ( Amer) 17.0 Est GFR (Non-Af Amer) 14.7 BUN/Creatinine Ratio 30.2 H Glucose 128 H Calcium 8.4 L Iron 105 TIBC 218 L Unsaturated IBC 113 L Transferrin % Sat 48 Ferritin 144.2 Lactate Dehydrogenase 209 Urine Color Yellow Urine Appearance Cloudy A Urine pH 5.5 Ur Specific Plato 1.021 Urine Protein 4+ H Urine Glucose (UA) Negative Urine Ketones Negative Urine Blood 3+ H Urine Nitrite Negative Urine Bilirubin Negative Urine Urobilinogen Negative Ur Leukocyte Esterase Negative Urine WBC (Auto) 10-30 H Urine RBC (Auto) >30 H U Hyaline Cast (Auto) 1-5 U Epithel Cells (Auto) >30 H Urine Bacteria (Auto) 1+ H Ur Renal Epithelial Cell Not Reportable Amorphous Sediment Present A Granular Casts 1-5 H Urine Mucus Present A Urine Yeast Not Reportable Ur Random Creatinine 143.9 U Random Total Protein 972.7 H Protein/Creatinin Ratio 6.8 H PG Care Time/CCT Total # of Minutes Spent Total Time Spent with Patient: Total time spent is greater than 50% in coordination of care (as documented) at patient's floor/unit and/or counseling patient: Coding Level of Care Code 85809 SUB INP/OBS CARE 3/50MIN Diagnoses Acute kidney injury N17.9 Hypertension I10 Edema R60.9
[2023-10-14 09:10] LABS: BUN Creatinine Ratio 30.2 (10-20); Calcium 8.4 mg/dl (8.6-10.3); Creatinine Clr Calc Pharmacy 15.8 ml/min; Est GFR (Non-African American) 14.7 ml/min; Potassium 4.6 mmol/L (3.5-5.1)
[2023-10-14 09:18] LABS: INR 0.9 (0.9-1.1); Prothrombin Time 10.1 Seconds (9.0-12.0)
[2023-10-14 09:29] LABS: Ferritin 144.2 ng/ml (8-388)
[2023-10-14] MEDS: LABETALOL HCL 100 MG TAB PO SCH (10:46)
--- NOTE | 2023-10-14 11:21 | Hospitalist Progress Note ---
Date of Service October 14, 2023 Assessment & Plan (1) Edema: Plan: -Patient with anasarca - edema of legs, thighs, abdominal wall as well as swelling of her hands and face -Low serum albumin at 2.6 -Cr= 1.66 on admission, unknown baseline -Urine protein elevated as well as low albumin and elevated lipids, clinical picture consistent with nephrotic syndrome -Echocardiogram demonstrating EF of 60 to 65% with only mild left ventricular hypertrophy. No other abnormalities noted -Nephrology consulted and following -COVID negative -Hepatitis testing pending -Serum/urine protein electrophoresis pending -Complement, [place], ESR, ANCA, anti-GBM, PLA2r pending -Steroid therapy initiated on 10/12- escalated to prednisone 20 mg TID -Noted Cr increase from 2 to 2.3 today -Continue diuresis- Lasix 40 mg IV BID increased to 80 mg IV BID on 10/12, will continue for now despite Cr increase -Improvement noted with increased diuretic thus far -Monitor I/O's, San catheter inserted 10/12 (2) Hypertension: Plan: -Noted elevated BP > 200 on admission and shortly thereafter, though now improved -Continue home losartan -Holding home HCTZ given diuresis with Lasix -Edema plan as above (3) Hyperlipidemia: Plan: - Lipid panel demonstrating total cholesterol greater than 200. -Patient is 88 years old without history of CAD or previous AL, no statin indicated given age Plan Disposition: Medical/surgical Diet: Low-sodium, heart healthy DVT prophylaxis: Heparin CODE STATUS: DNR/DNI Admission and Anticipated Discharge Date Admission Date: October 11, 2023 Supervising Physician Co-Signing Physician Notes I personally examined the patient and verified trujillo points of history and exam, discussed case, and agree with decision making and plan documented by Dr. Dyer. Discussed with patient's daughter, reviewed pending labs and unclear etiology for ROMY at this time. Reviewed indications for dialysis. Will continue to engage patient and her family in terms of recommendations and goals of care. Subjective Patient seen at beside this AM. Overall feeling improved. Does note continued BLE swelling and hand swelling. No SOB or CP. Eating well. Review of Systems 2 Review of Systems: Per HPI Physical Exam 2 Physical Exam: General: patient resting comfortably, NAD, non-toxic in appearance Skin: warm, dry, intact, no rashes or lesions HEENT: NC/AT, PERRL, EOMI, anicteric sclera, conjunctiva without injection Heart: +S1/S2, regular, no m/r/g Lungs: equal air entry bilaterally, no rales/rhonchi/wheezes Abd: soft, NT/ND, no masses/organomegaly/ascites, abdominal hernia - nontender Ext: warm, 2+ pulses in UE/LE bilaterally, no clubbing/cyanosis - 1+ pitting edema BLE Neuro: no obvious deformities Results & Data Results & Data Vital Signs (Past 12 Hours) Vital Signs Temp Pulse Pulse Resp BP Pulse Ox O2 Del Method 10/14/23 10:48 76 176/81 H 10/14/23 09:15 158/77 H 10/14/23 08:14 36.9 C 81 15 183/83 H 96 Room Air Laboratory Results 10/13/23 05:36 10/14/23 08:36 Resident Activity Tracking Resident Involvement: Resident Care Provided Care Provided: Adult Hospital Medicine
[2023-10-14] MEDS: hydrALAZINE HCL 25 MG TAB PO SCH (14:27)
--- NOTE | 2023-10-15 06:51 | Hospitalist Progress Note ---
Date of Service October 15, 2023 Assessment & Plan (1) Edema: Plan: Patient with diffuse anasarca and edema - legs thighs, abdominal wall, hands, face. Improving. Clinical picture consistent with nephrotic syndrome - urine proteinuria, elevated lipids, hypoalbuminemia, elevated creatinine. ECHO with EF 60-65% and mild left ventricular hypertrophy. Nephrology consult - appreciate recs. Appears improved clinically. Work up: Hepatitis panel negative Serum/urine protein electrophoresis pending Complement, [place], ESR, ANCA, anti-GBM, PLA2r pending Steroids on board at 20 mg TID Holding Lasix 2/20 d/t creatinine > 3 Strict Is and Os Discussed [employer] with patient/family - continue with conservative measures for now (2) Hypertension: Plan: -Noted elevated BP > 200 on admission and shortly thereafter, though now improved -Continue home losartan -Holding home HCTZ given diuresis with Lasix -Edema plan as above (3) Hyperlipidemia: Plan: - Lipid panel demonstrating total cholesterol greater than 200. -Patient is 88 years old without history of CAD or previous [place], no statin indicated given age Plan Disposition: Medical/surgical Diet: Low-sodium, heart healthy DVT prophylaxis: Heparin CODE STATUS: DNR/DNI Admission and Anticipated Discharge Date Admission Date: October 11, 2023 Supervising Physician Co-Signing Physician Notes I personally examined the patient and verified trujillo points of history and exam, discussed case, and agree with decision making and plan documented by Dr. Dyer. Patient states that two of her children will be coming to visit tomorrow from out of town, she is hopeful that we can engage family in a conversation focused on goals of care. ROMY remains, awaiting multiple labs per nephrology. Patient reemphasized that she would like conservative medical management and is not interested in dialysis or biopsy at this time. Subjective Seen at bedside this AM. Reports decreased swelling. Is feeling well. No SOB or CP. Review of Systems 2 Review of Systems: Per HPI Physical Exam 2 Physical Exam: General: patient resting comfortably, NAD, non-toxic in appearance Skin: warm, dry, intact, no rashes or lesions HEENT: NC/AT, PERRL, EOMI, anicteric sclera, conjunctiva without injection Heart: +S1/S2, regular, no m/r/g Lungs: equal air entry bilaterally, no rales/rhonchi/wheezes Abd: soft, NT/ND, no masses/organomegaly/ascites, abdominal hernia - nontender Ext: warm, 2+ pulses in UE/LE bilaterally, no clubbing/cyanosis - decreased edema BLE Neuro: no obvious deformities Results & Data Results & Data Vital Signs (Past 12 Hours) Vital Signs Temp Pulse Resp BP Pulse Ox O2 Del Method 10/14/23 23:29 36.2 C L 84 18 168/90 H 97 Room Air Laboratory Results 10/15/23 06:27 10/15/23 10:57 Resident Activity Tracking Resident Involvement: Resident Care Provided Care Provided: Adult Hospital Medicine
[2023-10-15 07:20] LABS: Basophils # (auto) 0.01 K/uL (0.00-0.20); Basophils % (auto) 0.1 %; Hemoglobin 10.9 g/dl (12.0-16.0); Immature Granulocytes # (auto) 0.06 K/uL (0.01-0.20); Immature Granulocytes % (auto) 0.6 %; Lymphocytes # (auto) 0.87 K/uL (1.20-3.40); Lymphocytes % (auto) 9.3 %; Mean Corpuscular Hemoglobin 29.4 pg (25.0-34.0); Mean Corpuscular Hgb Conc 34.1 g/dL (32.0-36.0); Mean Corpuscular Volume 86.3 fL (80.0-100.0); Mean Platelet Volume 10.4 fL (9.4-12.4); Monocytes # (auto) 0.33 K/uL (0.11-0.59); Monocytes % (auto) 3.5 %; Neutrophils % (auto) 86.5 %; Platelet Count 248 K/uL (130-400); RDW Coefficient of Variation 13.2 % (11.5-14.5); RDW Standard Deviation 41.1 fL (36.4-46.3); Red Blood Count 3.71 M/uL (4.20-5.40); White Blood Count 9.37 K/ul (4.8-10.8)
[2023-10-15 07:24] LABS: Albumin Level 2.4 gm/dl (3.4-5.0); BUN Creatinine Ratio 34.9 (10-20); Bilirubin,Total 0.2 mg/dl (0.2-1.0); Calcium 8.1 mg/dl (8.6-10.3); Creatinine Clr Calc Pharmacy 14.5 ml/min; Est GFR (African American) 15.5 ml/min; Est GFR (Non-African American) 13.4 ml/min; Globulin 2.4 gm/dl (2.5-4.0); Potassium 4.5 mmol/L (3.5-5.1); Total Protein 4.8 gm/dl (6.0-8.3)
--- NOTE | 2023-10-15 08:41 | Nephrology Progress Note ---
Date of Service October 15, 2023 Assessment & Plan (1) Acute kidney injury: Plan: * Continuity of care records from PCP show: Cr 0.8-1.2 w/ EGFR 45-72 cc/min 09/05/23 & 10/02/23 * 10/11/23 renal US - 10.4 cm kidneys w/ mild cortical atrophy. No hydronephrosis. * 10/11/23 echocardiogram - LVEF 60-65%, mild concentric LVH, no significant valve pathology, no RWMA * 10/14/23 urine culture - pending * Inflammatory urine sediment w/ pyuria, hematuria, cellular casts. Ddx is broad and includes NONA, FSGS, Membranous Nephropathy, MPGN, amyloidosis, RVT * No flank pain, gross hematuria to suggest RVT * 10/12/23 COVID - negative * SIEP/UIEP - pending * PLA2r, C3/C4, ESR, ANCA, [place], anti-GBM, Hep B/C - pending * Creatinine has now risen to 3.0. Weight is down 5 kg and LE edema is moderately improved * Patient remains nonoliguric. Electrolyte balance is acceptable. No acute indication for SPECIALIST ICU at this time * Hold diuretic and ARB. Monitor Cr, UO, UPCR, daily weight * Continue Prednisone 20 mg po TID (started 10/12/23). Await results of serologic testing * Discussed indications for renal biopsy and SPECIALIST ICU w/ patient and family again today. Patient wishes to continue w/ conservative medical management at this time (2) Hypertension: Plan: * BP has improved * Losartan stopped due to progressive renal dysfunction * Will increase Labetalol to 200 mg po BID and monitor BP response (3) Edema: Plan: * Weight is down 5 kg since admission. Still has trace to 1+ pretibial pitting edema * Continue low sodium diet * Encouraged use of compression stockings * Keep San catheter in place to monitor I&O's * Patient remains nonoliguric. Hold Furosemide today and monitor UO, weight, volume status Admission and Anticipated Discharge Date Admission Date: October 11, 2023 Subjective Mrs. Alvarez was evaluated in her hospital room this morning. She reports that she feels well. Her LE swelling is mildly improved. Weight is down 5 kg since admission and LE swelling is markedly improved. She denies fever, angina, palpi tations, dyspnea, hemoptysis, flank pain, abdominal discomfort, joint pain or skin rash Review of Systems Constitutional: no fever Eyes: no problem reported Ear, Nose, Mouth, Throat: no problem reported Respiratory: no cough and no dyspnea Cardiovascular: no chest pain Gastrointestinal: no abdominal pain, no nausea, no vomiting and no diarrhea/loose stools Genitourinary: no dysuria, no hematuria and no flank pain Integumentary: no rash Neurologic: no localized weakness Physical Exam Constitutional: well developed and well nourished; not in distress Eyes: PERRL, conjunctivae normal, anicteric sclerae ENMT: external ear and nose normal, oropharynx normal Neck: trachea midline, no thyromegaly Respiratory: normal respiratory effort, lungs clear to auscultation Cardiovascular: Rate/Rhythm: regular rate and regular rhythm Extremities: + edema (1+ pretibial pitting edema) Gastrointestinal (Abdomen): normal bowel sounds, soft, nontender, no hepatosplenomegaly Skin: no rashes, warm and dry Neurologic: Speech / Cognition: normal speech and normal cognition Psychiatric: Affect: euthymic affect Results & Data Vital Signs (Past 12 Hours) Vital Signs Temp Pulse Resp BP Pulse Ox O2 Del Method 10/15/23 07:33 36.6 C 79 16 159/68 H 97 Room Air 10/14/23 23:29 36.2 C L 84 18 168/90 H 97 Room Air Laboratory Results Laboratory Results - last 24 hr 10/14/23 10/15/23 08:36 06:27 WBC 9.37 RBC 3.71 L Hgb 10.9 L Hct 32.0 L MCV 86.3 MCH 29.4 MCHC 34.1 RDW Std Deviation 41.1 RDW Coeff of Maricel 13.2 Plt Count 248 MPV 10.4 Immature Gran % (Auto) 0.6 Neut % (Auto) 86.5 Lymph % (Auto) 9.3 [place] % (Auto) 3.5 Eos % (Auto) 0.0 Baso % (Auto) 0.1 Neut # (Auto) 8.10 H Lymph # (Auto) 0.87 L [place] # (Auto) 0.33 Eos # (Auto) 0.00 Baso # (Auto) 0.01 Immature Gran # (Auto) 0.06 PT 10.1 INR 0.9 Sodium 127 L 126 L Potassium 4.6 4.5 Chloride 95 L 96 L Carbon Dioxide 23 23 Anion Gap 9 7 BUN 84 H 105 H D Creatinine 2.78 H D 3.01 H Est Cr Clr Drug Dosing 15.8 14.5 Est GFR ( Amer) 17.0 15.5 Est GFR (Non-Af Amer) 14.7 13.4 BUN/Creatinine Ratio 30.2 H 34.9 H Glucose 128 H 141 H Calcium 8.4 L 8.1 L Iron 105 TIBC 218 L Unsaturated IBC 113 L Transferrin % Sat 48 Ferritin 144.2 Total Bilirubin 0.2 AST 13 ALT 11 Alkaline Phosphatase 53 Lactate Dehydrogenase 209 Total Protein 4.8 L Albumin 2.4 L Globulin 2.4 L Albumin/Globulin Ratio 1.0 Diagnostic Findings Continuity of care records from PCP: Cr 0.8-1.2 w/ EGFR 45-72 cc/min 09/05/23 & 10/02/23 10/11/23 renal US: The kidneys demonstrate mild cortical atrophy. Echotexture is normal. The right kidney measures 10.3 cm in length and the left kidney measures 10.4 cm in length. There is no hydronephrosis. No shadowing renal calculi are identified. There is no sonographic evidence of contour deforming renal mass lesion. No perinephric fluid is identified. The bladder is largely decompressed and grossly unremarkable. Bilateral ureteral jets were seen. 10/14/23 urine culture - pending 10/11/23 echocardiogram: LVEF 60-65%, mild concentric LVH, no significant valve pathology, no RWMA PG Care Time/CCT Total # of Minutes Spent Total Time Spent with Patient: Total time spent is greater than 50% in coordination of care (as documented) at patient's floor/unit and/or counseling patient: Coding Level of Care Code 68248 SUB INP/OBS CARE 3/50MIN Diagnoses Acute kidney injury N17.9 Hypertension I10 Edema R60.9
[2023-10-15] MEDS ORDERED: MICONAZOLE NITRATE POWDER 85 GM EXT PRN (08:46)
[2023-10-15] MEDS: LABETALOL HCL 200 MG TAB PO SCH (09:30)
[2023-10-15 10:03] LABS: Appearance Urine Clear (Clear); Bilirubin Urine Negative (Negative); Blood Urine 3+ (Negative); Color Urine Yellow; Epithelial Cell Urine Auto >30 /lpf (0-5); Glucose Urine UA Trace (Negative); Ketones Urine Negative (Negative); Leukocyte Esterase Urine Negative (Negative); Nitrite Urine Negative (Negative); Protein Urine 4+ (Negative); RBC Urine Automated >30 /hpf (0-4); Specific Gravity Urine 1.018 (1.000-1.030); Urobilinogen Urine Negative (Negative)
[2023-10-15 10:26] LABS: Bacteria Urine Automated 1+ (Negative)
[2023-10-15 10:30] LABS: Creatinine Urine Random 94.9 mg/dl; Protein Creatinine Ratio Urine 8.1 (0-0.2); Total Protein Urine Random 764.3 mg/dl (0-11.9)
[2023-10-15] MEDS: SODIUM CHLORIDE 1 GM TABLET PO SCH (12:08)
[2023-10-15 12:22] LABS: HBSAG NON-REACTIVE (NON-REACTIVE); Hepatitis C Vira RNA (Log) PCR <1.18 NOT DETECTED Log IU/mL (NOT DETECTED); Hepatitis C Viral RNA by PCR <15 NOT DETECTED IU/mL (NOT DETECTED)
[2023-10-15 12:28] LABS: Calcium 8.2 mg/dl (8.6-10.3); Potassium 4.5 mmol/L (3.5-5.1)
[2023-10-15 12:40] LABS: BUN Creatinine Ratio 35.4 (10-20); Creatinine Clr Calc Pharmacy 14.4 ml/min; Est GFR (African American) 15.4 ml/min; Est GFR (Non-African American) 13.3 ml/min
[2023-10-15 14:32] LABS: Albumin 2.2 g/dL (3.8-4.8); Alpha 1 Globulin 0.3 g/dL (0.2-0.3); Alpha 2 Globulin 0.8 g/dL (0.5-0.9); Beta-1-Globulin 0.3 g/dL (0.4-0.6); Beta-2-Globulin 0.3 g/dL (0.2-0.5); Gamma Globulin 0.6 g/dL (0.8-1.7); Monoclonal Protein Band 1 DNR g/dL (NONE DETECTED); Monoclonal Protein Band 2 DNR g/dL (NONE DETECTED); Monoclonal Protein Band 3 DNR g/dL (NONE DETECTED); Total Protein 4.4 g/dL (6.1-8.1)
[2023-10-16 08:04] LABS: Hematocrit (blood only) 32.1 % (37.0-47.0); Hemoglobin 10.9 g/dl (12.0-16.0); Mean Corpuscular Hemoglobin 29.4 pg (25.0-34.0); Mean Corpuscular Volume 86.5 fL (80.0-100.0); Mean Platelet Volume 10.3 fL (9.4-12.4); Platelet Count 263 K/uL (130-400); RDW Coefficient of Variation 13.5 % (11.5-14.5); RDW Standard Deviation 42.4 fL (36.4-46.3); Red Blood Count 3.71 M/uL (4.20-5.40); White Blood Count 9.83 K/ul (4.8-10.8)
[2023-10-16] MEDS: ACETAMINOPHEN 325 MG TAB PO PRN (08:04)
[2023-10-16 08:21] LABS: Albumin Globulin Ratio 1.1 (0.9-2); Albumin Level 2.6 gm/dl (3.4-5.0); BUN Creatinine Ratio 38.1 (10-20); Bilirubin,Total 0.3 mg/dl (0.2-1.0); Calcium 8.1 mg/dl (8.6-10.3); Creatinine Clr Calc Pharmacy 12.8 ml/min; Est GFR (African American) 13.3 ml/min; Est GFR (Non-African American) 11.5 ml/min; Globulin 2.3 gm/dl (2.5-4.0); Potassium 5.3 mmol/L (3.5-5.1); Total Protein 4.9 gm/dl (6.0-8.3)
[2023-10-16] MEDS ORDERED: LANTUS PER UNIT CHARGE SQ ONE (08:27)
[2023-10-16] MEDS ORDERED: STAT IV/IM STA (08:29)
--- NOTE | 2023-10-16 08:44 | Nephrology Progress Note ---
Date of Service October 16, 2023 Assessment & Plan (1) Acute kidney injury: Plan: * Continuity of care records from PCP show: Cr 0.8-1.2 w/ EGFR 45-72 cc/min 09/05/23 & 10/02/23. No recent health maintenance studies (ie., pap, mammogram, colonoscopy). 10/10/23 CXR negative for pulmonary lesion. Will order FOBT * 10/11/23 renal US - 10.4 cm kidneys w/ mild cortical atrophy. No hydronephrosis. * 10/11/23 echocardiogram - LVEF 60-65%, mild concentric LVH, no significant valve pathology, no RWMA * 10/14/23 urine culture - no growth * Inflammatory urine sediment w/ pyuria, hematuria, cellular casts. Ddx is broad and includes NONA, FSGS, Membranous Nephropathy, MPGN, amyloidosis, lupus nephritis, RVT * No systemic signs/symptoms of active vasculitis. No flank pain, gross hematuria to suggest RVT. * 10/10/23 Hep Bs Ag, Hep C RNA - negative * 10/12/23 COVID - negative * SIEP/UIEP - pending. No hypercalcemia or bone pain. X-ray revealed osteopenia only, no lytic lesions of the ribs * 10/11/23 ESR 68 (0-30) * PLA2r, C3/C4, ANCA, [place], anti-GBM - pending. No pulmonary infiltrate to suggest [place] or Patricia's disease * Creatinine has now risen to 3.4 w/ EGFR 11 cc/min. Patient is non-oliguric, weight is down 5 kg from admission and LE edema is moderately improved. Patient has progressive renal dysfunction despite empiric steroid therapy * Volume status is acceptable. Patient has mild hyperkalemia and will receive Lokelma therapy. No acute indication for SIGNAL WORKER HELPER at this time * Hold diuretic and ARB. Monitor Cr, UO, UPCR, daily weight * Continue Prednisone 20 mg po TID (started 10/12/23) and PPI therapy. Await results of serologic testing * Discussed indications/risks/benefits for renal biopsy and SIGNAL WORKER HELPER w/ patient and family again today. Recommended transfer to tertiary care center for [place] kidney biopsy in order to obtain histologic diagnosis and guide therapy. Mrs. Alvarez wishes to discuss this with her family. She notes however that she is favoring conservative medical management and is uncertain whether to escalate care. Hospitalist service updated regarding biopsy recommendation and will meet w/ family this afternoon to discuss goals of care (2) Hypertension: Plan: * BP has improved * Losartan stopped due to progressive renal dysfunction * Continue Labetalol 200 mg po BID and monitor BP response (3) Edema: Plan: * Weight is down 5 kg since admission. Still has trace to 1+ pretibial pitting edema * Continue low sodium diet * Encouraged use of compression stockings * Keep San catheter in place to monitor I&O's * Patient remains nonoliguric. Hold Furosemide today and monitor UO, weight, volume status (4) Anemia: Plan: * Hgb normal (12.6) at time of admission. Mild, asymptomatic anemia due to hospital phlebotomy for laboratory testing * 10/14/23 iron sat 48%, ferritin 144.2 Admission and Anticipated Discharge Date Admission Date: October 11, 2023 Subjective Mrs. Alvarez was evaluated in her hospital room this morning. Her son Vincent was present at the time of my evaluation. Mrs. Alvarez reports that she feels well. Her LE swelling is mildly improved. Weight is down 5 kg since admission and LE swelling is markedly improved. She denies fever, angina, palpitations, dyspnea, hemoptysis, flank pain, abdominal discomfort, joint pain or skin rash Review of Systems Constitutional: no fever Eyes: no problem reported Ear, Nose, Mouth, Throat: no problem reported Respiratory: no cough and no dyspnea Cardiovascular: no chest pain Gastrointestinal: no abdominal pain, no nausea, no vomiting and no diarrhea/loose stools Genitourinary: no dysuria, no hematuria and no flank pain Integumentary: no rash Neurologic: no localized weakness Physical Exam Constitutional: well developed and well nourished; not in distress Eyes: PERRL, conjunctivae normal, anicteric sclerae ENMT: external ear and nose normal, oropharynx normal Neck: trachea midline, no thyromegaly Respiratory: normal respiratory effort, lungs clear to auscultation Cardiovascular: Rate/Rhythm: regular rate and regular rhythm Extremities: + edema (1+ pretibial pitting edema) Gastrointestinal (Abdomen): normal bowel sounds, soft, nontender, no hepatosplenomegaly Skin: no rashes, warm and dry Neurologic: Speech / Cognition: normal speech and normal cognition Psychiatric: Affect: euthymic affect Results & Data Vital Signs (Past 12 Hours) Vital Signs Temp Pulse Resp BP BP Pulse Ox O2 Del Method 10/16/23 07:46 36.5 C 78 16 163/81 H 94 Room Air 10/15/23 21:30 Room Air 10/15/23 20:49 36.6 C 74 18 172/77 H 95 Room Air Laboratory Results Abnormal Lab Results 10/10/23 10/12/23 10/15/23 21:15 06:30 10:57 WBC RBC Hgb Hct MCV MCH MCHC RDW Std Deviation RDW Coeff of Maricel Plt Count MPV ESR Sodium 126 L Potassium 4.5 Chloride 94 L Carbon Dioxide 22 Anion Gap 10 BUN 107 H Creatinine 3.02 H Est Cr Clr Drug Dosing 14.4 Est GFR ( Amer) 15.4 Est GFR (Non-Af Amer) 13.3 BUN/Creatinine Ratio 35.4 H Glucose 190 H Calcium 8.2 L Total Bilirubin AST ALT Alkaline Phosphatase Total Protein Total Protein (PEP) 4.4 L Albumin Albumin (PEP) 2.2 L Globulin Albumin/Globulin Ratio Balkc-6-Uwuultupo 0.3 Uvrvc-3-Ytkvshicv 0.8 Ixlz-2-Fsosajhs 0.3 L Etvw-5-Gxwkifjl 0.3 Gamma Globulins 0.6 L Monoclonal Peak 3 DNR Ser Monoclonl Protein DNR Ser Monoclonal Prot 2 DNR PEP Interpretation SEE NOTE Urine Color Urine Appearance Urine pH Ur Specific [place] Urine Protein Urine Glucose (UA) Urine Ketones Urine Blood Urine Nitrite Urine Bilirubin Urine Urobilinogen Ur Leukocyte Esterase Urine WBC (Auto) Urine RBC (Auto) U Hyaline Cast (Auto) U Epithel Cells (Auto) Urine Bacteria (Auto) Ur Renal Epithelial Cell Other Crystals Granular Casts Ur Random Creatinine U Random Total Protein Protein/Creatinin Ratio Serum Immunofixation SEE NOTE Hepatitis B Ab, Qual NON-REACTIVE Hep Bs Antigen NON-REACTIVE Hep Bs Ag Confirmation TNP HCV RNA (PCR) IUs/ml <15 NOT DETECTED HCV RNA PCR log IUs/ml <1.18 NOT DETECTED 10/15/23 10/15/23 10/16/23 15:22 Unknown 07:29 WBC 9.83 RBC 3.71 L Hgb 10.9 L Hct 32.1 L MCV 86.5 MCH 29.4 MCHC 34.0 RDW Std Deviation 42.4 RDW Coeff of Maricel 13.5 Plt Count 263 MPV 10.3 ESR 48 H Sodium 126 L Potassium 5.3 H Chloride 95 L Carbon Dioxide 22 Anion Gap 9 BUN 130 H D Creatinine 3.41 H D Est Cr Clr Drug Dosing 12.8 Est GFR ( Amer) 13.3 Est GFR (Non-Af Amer) 11.5 BUN/Creatinine Ratio 38.1 H Glucose 143 H Calcium 8.1 L Total Bilirubin 0.3 AST 13 ALT 11 Alkaline Phosphatase 52 Total Protein 4.9 L Total Protein (PEP) Albumin 2.6 L Albumin (PEP) Globulin 2.3 L Albumin/Globulin Ratio 1.1 Mwpft-1-Mmtnsnbdy Iniuu-9-Mrfoclrnm Dmsn-2-Touovvzq Lvhl-8-Zerfaibg Gamma Globulins Monoclonal Peak 3 Ser Monoclonl Protein Ser Monoclonal Prot 2 PEP Interpretation Urine Color Yellow Urine Appearance Clear Urine pH 6.0 Ur Specific [place] 1.018 Urine Protein 4+ H Urine Glucose (UA) Trace H Urine Ketones Negative Urine Blood 3+ H Urine Nitrite Negative Urine Bilirubin Negative Urine Urobilinogen Negative Ur Leukocyte Esterase Negative Urine WBC (Auto) 5-10 H Urine RBC (Auto) >30 H U Hyaline Cast (Auto) 5-10 H U Epithel Cells (Auto) >30 H Urine Bacteria (Auto) 1+ H Ur Renal Epithelial Cell Not Reportable Other Crystals [place] Granular Casts 1-5 H Ur Random Creatinine 94.9 U Random Total Protein 764.3 H Protein/Creatinin Ratio 8.1 H Serum Immunofixation Hepatitis B Ab, Qual Hep Bs Antigen Hep Bs Ag Confirmation HCV RNA (PCR) IUs/ml HCV RNA PCR log IUs/ml PG Care Time/CCT Total # of Minutes Spent Total Time Spent with Patient: Total time spent is greater than 50% in coordination of care (as documented) at patient's floor/unit and/or counseling patient: Coding Level of Care Code 27433 SUB INP/OBS CARE 3/50MIN Diagnoses Acute kidney injury N17.9 Hypertension I10 Hypertension type: unspecified Edema R60.9 Anemia D64.9 (2) Hypertension Hypertension type: unspecified Qualified Code(s): I10 - Essential (primary) hypertension
--- NOTE | 2023-10-16 08:47 | Hospitalist Progress Note ---
Date of Service October 16, 2023 Assessment & Plan (1) Edema: Plan: Patient with diffuse anasarca and edema - legs thighs, abdominal wall, hands, face. Improving. Clinical picture consistent with nephrotic syndrome - urine proteinuria, elevated lipids, hypoalbuminemia, elevated creatinine. ECHO with EF 60-65% and mild left ventricular hypertrophy. Nephrology consult - appreciate recs. Etiology of nephrotic syndrome unknown. Declines biopsy. Supportive care only. Continue to monitor while inpatient. Work up: Hepatitis panel negative Serum/urine protein electrophoresis pending Complement, [place], ESR, ANCA, anti-GBM, PLA2r pending Steroids on board at 20 mg TID Holding Lasix as creatinine continues to rise San placed 10/12 for strict Is and Os Declines [employer]EDING SUPERVISOR and biopsy, plan for home with hospice care (2) Hyperkalemia, diminished renal excretion: Plan: Hyperkalemia in the setting of ROMY and nephrotic syndrome with decreased renal secretion of potassium. Give 10 units regular insulin with D50 per hyperkalemia protocol as patient with high risk of worsening hyperkalemia as kidney function continues to worsen. Also started on Lokelma per nephrology. Patient not interested in [employer]EDING SUPERVISOR. Plan for home with hospice care. Will continue with supportive care while inpatient. (3) Hypertension: Plan: Patient onlosartan-HCTZ at home. Inpatient regimen: hydralazine 25 mg TID and labetalol 200 mg BID (4) Hyperlipidemia: Plan: Lipid panel demonstrating total cholesterol greater than 200. Patient is 88 years old without history of CAD or previous [place], no statin indicated given age (5) Nephrotic syndrome: (6) Acute kidney injury: (7) Bilateral edema of lower extremity: (8) Proteinuria: (9) Elevated serum creatinine: Plan Disposition: Medical/surgical Diet: Low-sodium, heart healthy DVT prophylaxis: Heparin CODE STATUS: DNR/DNI CM: on board to set up home with hospice Admission and Anticipated Discharge Date Admission Date: October 11, 2023 Supervising Physician Co-Signing Physician Notes I personally examined the patient and verified trujillo points of history and exam, discussed case, and agree with decision making and plan documented by Dr. Dyer. Primary team reviewed recommendations with nephrology prior to meeting with patient today. Goals of care discussed at length with patient and her family at bedside. Patient states she is not interested in renal biopsy or dialysis at this time. Patient's family supports this decision. Her was able to visit today. Continue to await multiple labs that might provide insight to etiology of ROMY. Case management assisting with coordination of needs for patient for future discharge. Subjective Seen at bedside this AM. Reports decreased swelling. Is feeling well. No SOB or CP. Review of Systems 2 Review of Systems: Per HPI Physical Exam 2 Physical Exam: General: patient resting comfortably, NAD, non-toxic in appearance Skin: warm, dry, intact, no rashes or lesions HEENT: NC/AT, PERRL, EOMI, anicteric sclera, conjunctiva without injection Heart: clinically well perfused Lungs: no increased work of breathing Abd: non-distended Ext: warm, 2+ pulses in UE/LE bilaterally, no clubbing/cyanosis - decreased edema BLE Neuro: no obvious deformities Results & Data Results & Data Vital Signs (Past 12 Hours) Vital Signs Temp Pulse Resp BP BP Pulse Ox O2 Del Method 10/16/23 07:46 36.5 C 78 16 163/81 H 94 Room Air 10/15/23 21:30 Room Air 10/15/23 20:49 36.6 C 74 18 172/77 H 95 Room Air Laboratory Results 10/16/23 07:29 10/16/23 07:29 Resident Activity Tracking Resident Involvement: Resident Care Provided Care Provided: Adult Hospital Medicine (3) Hypertension Hypertension type: unspecified Qualified Code(s): I10 - Essential (primary) hypertension
[2023-10-16] MEDS: CALCIUM GLUCONATE 10% 1,000 MG in SODIUM CHLOR 0.9% MINI-B 50 ML IV ONE (09:23)
[2023-10-16] MEDS: DEXTROSE 50% 50 ML SYRINGE IV ONE (09:24)
[2023-10-16] MEDS: INSULIN HUMAN REGULAR PER UNIT 10 UNITS in SYRINGE 9.9 ML IV ONE (09:24)
[2023-10-16] MEDS: SODIUM ZIRCONIUM CYCLOSILICATE 10 GM PACKET PO SCH (09:36)
[2023-10-16] MEDS: D5W AND 1/2NSS 1,000 ML IV SCH (09:54)
[2023-10-16 17:29] LABS: Appearance Urine Clear (Clear); Bacteria Urine Automated Negative (Negative); Bilirubin Urine Negative (Negative); Blood Urine 1+ (Negative); Color Urine Yellow; Epithelial Cell Urine Auto >30 /lpf (0-5); Glucose Urine UA Trace (Negative); Ketones Urine Negative (Negative); Leukocyte Esterase Urine Negative (Negative); Nitrite Urine Negative (Negative); Protein Urine 3+ (Negative); Specific Gravity Urine 1.017 (1.000-1.030); Urobilinogen Urine Negative (Negative); pH Urine 5.5 (4.5-7.5)
[2023-10-16 17:55] LABS: Creatinine Urine Random 103.6 mg/dl; Protein Creatinine Ratio Urine 3.6 (0-0.2); Total Protein Urine Random 373.1 mg/dl (0-11.9)
[2023-10-17 06:07] LABS: Hematocrit (blood only) 31.1 % (37.0-47.0); Hemoglobin 10.8 g/dl (12.0-16.0); Mean Corpuscular Hgb Conc 34.7 g/dL (32.0-36.0); Mean Corpuscular Volume 86.4 fL (80.0-100.0); Mean Platelet Volume 10.3 fL (9.4-12.4); Platelet Count 283 K/uL (130-400); RDW Coefficient of Variation 13.6 % (11.5-14.5); RDW Standard Deviation 42.6 fL (36.4-46.3); White Blood Count 10.33 K/ul (4.8-10.8)
[2023-10-17 06:35] LABS: Prothrombin Time 10.7 Seconds (9.0-12.0)
[2023-10-17 06:42] LABS: Albumin Level 2.4 gm/dl (3.4-5.0); BUN Creatinine Ratio 43.3 (10-20); Bilirubin,Total 0.3 mg/dl (0.2-1.0); Calcium 7.9 mg/dl (8.6-10.3); Creatinine Clr Calc Pharmacy 13.6 ml/min; Est GFR (African American) 14.3 ml/min; Est GFR (Non-African American) 12.4 ml/min; Globulin 2.4 gm/dl (2.5-4.0); Potassium 4.5 mmol/L (3.5-5.1); Total Protein 4.8 gm/dl (6.0-8.3)
--- NOTE | 2023-10-17 07:30 | Hospitalist Progress Note ---
Date of Service October 17, 2023 Assessment & Plan (1) Edema: Plan: Patient with diffuse anasarca and edema - legs thighs, abdominal wall, hands, face. Improving. Clinical picture consistent with nephrotic syndrome - urine proteinuria, elevated lipids, hypoalbuminemia, elevated creatinine. ECHO with EF 60-65% and mild left ventricular hypertrophy. Nephrology consult - appreciate recs. Etiology of nephrotic syndrome unknown. Declines biopsy. Supportive care only. Continue to monitor while inpatient. Work up: Hepatitis panel negative Serum/urine protein electrophoresis pending Complement, [place], ESR, ANCA, anti-GBM, PLA2r pending Steroids on board at 20 mg TID Holding Lasix as creatinine continues to rise San placed 10/12 for strict Is and Os Declines EVENT PROMOTIONS COORDINATOR and biopsy, plan for home with hospice care (2) Hyperkalemia, diminished renal excretion: Plan: Hyperkalemia in the setting of ROMY and nephrotic syndrome with decreased renal secretion of potassium. Give 10 units regular insulin with D50 per hyperkalemia protocol as patient with high risk of worsening hyperkalemia as kidney function continues to worsen. Also started on Lokelma per nephrology. Patient not interested in EVENT PROMOTIONS COORDINATOR. Plan for home with hospice care. Will continue with supportive care while inpatient. (3) Hypertension: Plan: Patient onlosartan-HCTZ at home. Inpatient regimen: hydralazine 25 mg TID and labetalol 200 mg BID (4) Hyperlipidemia: Plan: Lipid panel demonstrating total cholesterol greater than 200. Patient is 88 years old without history of CAD or previous AR, no statin indicated given age (5) Nephrotic syndrome: (6) Acute kidney injury: (7) Bilateral edema of lower extremity: (8) Proteinuria: (9) Elevated serum creatinine: Plan Disposition: Medical/surgical Diet: Low-sodium, heart healthy DVT prophylaxis: Heparin CODE STATUS: DNR/DNI CM: on board to set up home with hospice Admission and Anticipated Discharge Date Admission Date: October 11, 2023 Review of Systems Review of Systems: Per HPI Physical Exam Physical Exam: General: patient resting comfortably, NAD, non-toxic in appearance Skin: warm, dry, intact, no rashes or lesions HEENT: NC/AT, PERRL, EOMI, anicteric sclera, conjunctiva without injection Heart: clinically well perfused Lungs: no increased work of breathing Abd: non-distended Ext: warm, 2+ pulses in UE/LE bilaterally, no clubbing/cyanosis - decreased edema BLE Neuro: no obvious deformities Results & Data Results & Data Vital Signs (Past 12 Hours) Vital Signs Temp Pulse Resp BP BP Pulse Ox O2 Del Method 10/17/23 07:07 36.6 C 69 16 143/67 H 94 Room Air 10/16/23 19:45 36.4 C L 69 16 169/80 H 96 Room Air (3) Hypertension Hypertension type: unspecified Qualified Code(s): I10 - Essential (primary) hypertension
--- NOTE | 2023-10-17 08:59 | Nephrology Progress Note ---
Date of Service October 17, 2023 Assessment & Plan (1) Acute kidney injury: Plan: * Continuity of care records from PCP show: Cr 0.8-1.2 w/ EGFR 45-72 cc/min 09/05/23 & 10/02/23. 12/24 pap was within normal limits. No recent health maintenance studies (ie., mammogram, colonoscopy). 10/10/23 CXR negative for pulmonary lesion. FOBT has been ordered - results not yet available * 10/11/23 renal US - 10.4 cm kidneys w/ mild cortical atrophy. No hydronephrosis. * 10/11/23 echocardiogram - LVEF 60-65%, mild concentric LVH, no significant valve pathology, no RWMA * 10/14/23 urine culture - no growth * Inflammatory urine sediment w/ pyuria, hematuria, cellular casts. Ddx is broad and includes NONA, FSGS, Membranous Nephropathy, MPGN, amyloidosis, lupus nephritis, RPGN, RVT * No systemic signs/symptoms of active vasculitis. No flank pain, gross hematuria to suggest RVT. * 10/10/23 Hep Bs Ag, Hep C RNA - negative * 10/12/23 COVID - negative * 10/12/23 SIEP - faint indistinct band c/w underlying inflammatory condition. Plasma cell disorder cannot be entirely ruled out. UIEP - pending. No hypercalcemia or bone pain. X-ray revealed osteopenia only, no lytic lesions of the ribs * 10/11/23 ESR 68 (0-30) --> 48 10/15/23 * PLA2r, C3/C4, ANCA, [place], anti-GBM - pending. No pulmonary infiltrate to suggest [place] or Patricia's disease * Creatinine has now stabilized at 3.2-3.4 w/ EGFR 11 cc/min. Patient is non- oliguric, weight is down 5 kg from admission and LE edema is moderately improved. Patient may be starting to respond to steroid therapy * Hold diuretic and ARB * Continue Prednisone 20 mg po TID (started 10/12/23), PPI and ss Bactrim therapy. Await results of serologic testing * Discussed indications/risks/benefits for renal biopsy and PANEL EDGE PAINTER w/ patient and family. Transfer to tertiary care center for [place] biopsy was recommended. Mrs. Alvarez has discussed this with her family. She does not desire ongoing medical testing or further hospitalization. She wishes to return home with her family and pursue a palliative approach. Given that her kidney function has stabilized and proteinuria appears improved w/ steroid therapy, she is willing to continue medical therapy and perform a slow steroid taper with blood and urine studies monitored every 2 weeks. Her family notes that it is difficult for Mrs. Alvarez to travel and she may limit her office follow up visits to her PCP in [place]. If her condition fails to improve then she would like to transition to hospice care. With this in mind I have contacted the hospitalist service and recommended the following: - Prednisone 10 mg tablets. Take six tablets daily and reduce by one tablet each month - Continue Protonix 40 mg daily and single strength Bactrim daily while on steroid therapy - Continue Labetalol 200 mg po BID and Hydralazine 25 mg po TID for BP management - PRP, CBC, urinalysis w/ UPCR to be completed every 2 weeks while on steroid therapy - Fax lab results to my office at [phone]. (phone [phone]) * I have contacted [facility] in [place], [place] and provided a medical update to Ava HERNDON. Dr. Almodovar is currently away on medical leave but she will provide him with the message when he returns (2) Hypertension: Plan: * BP has improved * Losartan stopped due to progressive renal dysfunction * Continue Labetalol 200 mg po BID, Hydralazine 25 mg TID and monitor BP respo nse (3) Edema: Plan: * Weight is down 5 kg since admission. Still has trace to 1+ pretibial pitting edema * Continue low sodium diet * Encouraged use of compression stockings * Patient remains nonoliguric. Hold Furosemide (4) Anemia: Plan: * Hgb normal (12.6) at time of admission. Mild, asymptomatic anemia due to hospital phlebotomy for laboratory testing * 10/14/23 iron sat 48%, ferritin 144.2 Admission and Anticipated Discharge Date Admission Date: October 11, 2023 Subjective Mrs. Alvarez was evaluated in her hospital room this morning. Her son Vincent and daughter Brooklynn were present at the time of my evaluation. Mrs. Alvarez reports that she feels well. Her LE swelling is mildly improved. Weight is down 5 kg since admission and LE swelling is markedly improved. She denies fever, angina, palpitations, dyspnea, hemoptysis, flank pain, abdominal discomfort, joint pain or skin rash. Mrs. Alvarez reinforces that she does not desire further diagnostic evaluation or ongoing hospitalization. She wishes to return home with her family Review of Systems Constitutional: no fever Eyes: no problem reported Ear, Nose, Mouth, Throat: no problem reported Respiratory: no cough and no dyspnea Cardiovascular: no chest pain Gastrointestinal: no abdominal pain, no nausea, no vomiting and no diarrhea/loose stools Genitourinary: no dysuria, no hematuria and no flank pain Integumentary: no rash Neurologic: no localized weakness Physical Exam Constitutional: well developed and well nourished; not in distress Eyes: PERRL, conjunctivae normal, anicteric sclerae ENMT: external ear and nose normal, oropharynx normal Neck: trachea midline, no thyromegaly Respiratory: normal respiratory effort, lungs clear to auscultation Cardiovascular: Rate/Rhythm: regular rate and regular rhythm Extremities: + edema (1+ pretibial pitting edema) Gastrointestinal (Abdomen): normal bowel sounds, soft, nontender, no hepatosplenomegaly Skin: no rashes, warm and dry Neurologic: Speech / Cognition: normal speech and normal cognition Psychiatric: Affect: euthymic affect Results & Data Vital Signs (Past 12 Hours) Vital Signs Temp Pulse Resp BP Pulse Ox O2 Del Method 10/17/23 07:07 36.6 C 69 16 143/67 H 94 Room Air Laboratory Results Laboratory Results - last 24 hr 10/16/23 10/17/23 16:20 05:22 WBC 10.33 RBC 3.60 L Hgb 10.8 L Hct 31.1 L MCV 86.4 MCH 30.0 MCHC 34.7 RDW Std Deviation 42.6 RDW Coeff of [place] 13.6 Plt Count 283 MPV 10.3 PT 10.7 INR 1.0 Sodium 124 L Potassium 4.5 Chloride 93 L Carbon Dioxide 21 Anion Gap 10 BUN 139 H Creatinine 3.21 H Est Cr Clr Drug Dosing 13.6 Est GFR ( Amer) 14.3 Est GFR (Non-Af Amer) 12.4 BUN/Creatinine Ratio 43.3 H Glucose 163 H Calcium 7.9 L Total Bilirubin 0.3 AST 11 L ALT 11 Alkaline Phosphatase 49 Total Protein 4.8 L Albumin 2.4 L Globulin 2.4 L Albumin/Globulin Ratio 1.0 Urine Color Yellow Urine Appearance Clear Urine pH 5.5 Ur Specific [place] 1.017 Urine Protein 3+ H Urine Glucose (UA) Trace H Urine Ketones Negative Urine Blood 1+ H Urine Nitrite Negative Urine Bilirubin Negative Urine Urobilinogen Negative Ur Leukocyte Esterase Negative Urine WBC (Auto) 1-5 Urine RBC (Auto) 10-30 H U Hyaline Cast (Auto) 5-10 H U Epithel Cells (Auto) >30 H Urine Bacteria (Auto) Negative Ur Random Creatinine 103.6 U Random Total Protein 373.1 H Protein/Creatinin Ratio 3.6 H PG Care Time/CCT Total # of Minutes Spent Total Time Spent with Patient: Total time spent is greater than 50% in coordination of care (as documented) at patient's floor/unit and/or counseling patient: Coding Level of Care Code 90170 SUB INP/OBS CARE 3/50MIN Diagnoses Acute kidney injury N17.9 Hypertension I10 Hypertension type: unspecified Edema R60.9 Anemia D64.9 (2) Hypertension Hypertension type: unspecified Qualified Code(s): I10 - Essential (primary) hypertension
[2023-10-17] MEDS: SULFA/TRIMETH 400/80MG TAB PO SCH (10:41)
[2023-10-17] MEDS: POLYETHYLENE (MIRALAX) 17 GM PACK PO PRN (11:07)
--- NOTE | 2023-10-17 14:42 | Discharge Summary ---
Date of Service October 17, 2023 Admission HPI Per Admitting Provider Catrina Alvarez is an 88yo female with history of hypertension presenting with progressive edema unresponsive to PO diuretic. Patient reports that her symptoms began around 09/26/23 with some swelling of her feet and ankles. She had a prescription for Lasix PRN which, prior to this, she did not use routinely. She saw her PCP for this complaint on 09/30/22 and started taking her Lasix daily for the swelling but did not note an increase in urine output or a decrease in swelling. She followed up with her PCP 1 week later and her diuretic was changed to Torsemide 20mg po daily. She did not notice any improvement so she saw her PCP again on 10/08/23 and was given a dose of IM Lasix. She still has not had an increase in UOP and her edema has persisted. She has gained approximately 16# since 09/26/23. She does note that her weight has been stable rather than increasing over the last several days. She reports some TRACY as well as edema. Otherwise denies fever, chills, cough, chest pain, palpitations or orthopnea. She feels severe edema in her legs as well as thighs, arms, hands and face. She reports foamy urine over the last several days as well. She sometimes has to strain to urinate and has some incontinence at night. In the ER she is afebrile, hypertensive Admission Exam Per Admitting Provider General: patient resting comfortably, NAD, non-toxic in appearance, AA&O x 4 Skin: warm, dry, intact, no rashes or lesions HEENT: NC/AT, PERRL, EOMI, anicteric sclera, conjunctiva without injection, external ear normal to inspection and nontender, nares patent, moist mucus membranes, dentition intact, no oropharyngeal lesions, neck supple, trachea midline, no LAD, no thyromegaly, +JVD noted bilaterally Heart: +S1/S2, regular, no m/r/g Lungs: equal air entry bilaterally, no rales/rhonchi/wheezes Abd: +BS, soft, NT/ND, no masses/organomegaly/ascites, abdominal hernia - nontender Ext: warm, 2+ pulses in UE/LE bilaterally, no clubbing/cyanosis - 3+ pitting edema of hands, thighs, abdominal wall Neuro: nonfocal, patient AA&O x 4, speech intact, no facial droop, moving all extremities on command with equal strength 5/5 Principal Diagnosis acute kidney failure - nephrotic syndrome Discharge Exam General: patient resting comfortably, NAD, non-toxic in appearance Skin: warm, dry, intact, no rashes or lesions HEENT: NC/AT, PERRL, EOMI, anicteric sclera, conjunctiva without injection Heart: clinically well perfused Lungs: no increased work of breathing Abd: non-distended Ext: warm, 2+ pulses in UE/LE bilaterally, no clubbing/cyanosis - decreased edema BLE Neuro: no obvious deformities Discharge Data Allergies Allergy/AdvReac Type Severity Reaction Status Date / Time cephalexin Allergy Unknown Verified 10/14/23 09:34 Consultations 10/10/23 23:13 ED Decision to Admit Stat 10/11/23 06:47 Consult Nephrology Routine Ordered Studies Chest X-Ray 10/10/23 20:04 SINGLE VIEW CHEST CLINICAL HISTORY: Atypical chest pain. FINDINGS: A PA chest radiograph is obtained. No prior studies are available for comparison at the time of dictation. There are calcified mediastinal lymph nodes. The heart is enlarged noting atherosclerotic calcification of the thoracic aorta. The pulmonary vasculature is noncongested. There is mild bibasilar scarring/atelectasis. Scattered calcified granulomas are observed. The lungs and pleural spaces are otherwise clear. No pneumothorax is seen. The skele danilo structures are osteopenic. The bony thorax is grossly intact. Advanced arthritic change is noted in the shoulders. IMPRESSION: No acute cardiopulmonary abnormality is identified. Renal Ultrasound 10/11/23 08:59 FINDINGS: Kidneys: The kidneys demonstrate mild cortical atrophy. Echotexture is normal. The right kidney measures 10.3 cm in length and the left kidney measures 10.4 cm in length. There is no hydronephrosis. No shadowing renal calculi are identified. There is no sonographic evidence of contour deforming renal mass lesion. No perinephric fluid is identified. Bladder: The bladder is largely decompressed and grossly unremarkable. Bilateral ureteral jets were seen. IMPRESSION: 1. The kidneys demonstrated cortical atrophy and are without hydronephrosis. 2. The bladder is decompressed and grossly unremarkable. Hospital Course (1) Edema: Patient with diffuse anasarca and edema - legs thighs, abdominal wall, hands, face. Improving. Clinical picture consistent with nephrotic syndrome - urine proteinuria, elevated lipids, hypoalbuminemia, elevated creatinine. ECHO with EF 60-65% and mild left ventricular hypertrophy. Nephrology consult - appreciate recs. Etiology of nephrotic syndrome unknown. Hepatitis panel negative. Serum/urine protein electrophoresis pending. Complement, [place], ESR, ANCA, anti- GBM, PLA2r pending. Declines biopsy and STOREPERSON. Supportive care only. Creatinine with slight improvement today. We may finally be seeing the impact of steroid treatment. Will continue with long steroid taper 60 mg x 1 month - decrease by 10 mg monthly. Will get labs (UA, CBC, Renal panel) every other two weeks -- cc'd Dr. Bello (Nephrology) and Dr. Almodovar (PCP). Family would like to keep Alice beltrán in place - educated on care of indwelling catheter. Hold diuretics for the foreseeable future. Recommend close f/u with nephrology and PCP. Patient going home with hospice. (2) Hyperkalemia, diminished renal excretion: Hyperkalemia in the setting of ROMY and nephrotic syndrome with decreased renal secretion of potassium. Give 10 units regular insulin with D50 per hyperkalemia protocol as patient with high risk of worsening hyperkalemia as kidney function continues to worsen. Also started on Lokelma per nephrology. Patient not interested in STOREPERSON. Plan for home with hospice care. Will continue with supportive care while inpatient. (3) Hypertension: Patient on losartan-HCTZ at home. Inpatient regimen: hydralazine 25 mg TID and labetalol 200 mg BID. Will continue this on discharge. (4) Hyperlipidemia: Lipid panel demonstrating total cholesterol greater than 200. Patient is 88 years old without history of CAD or previous DC, no statin indicated given age (5) Nephrotic syndrome: (6) Acute kidney injury: (7) Bilateral edema of lower extremity: (8) Proteinuria: (9) Elevated serum creatinine: Plan Disposition: Medical/surgical Diet: Low-sodium, heart healthy DVT prophylaxis: Heparin CODE STATUS: DNR/DNI CM: on board to set up home with hospice Total Time Total Time Spent Total Time Spent (In Minutes): 42 Discharge Plan Discharge Items Patient Disposition: Home - Self-Care Reason For Visit: PROGRESSIVE EDEMA Discharge Diagnosis: nephrotic syndrome Activity: Per Instructions section Non-emergency contact: Primary Care Provider and Operator Weapon Locating Radar Call non-emergency contact if: you have any medication questions and your temperature is above 101.5 Follow-up/Referrals: Ayaz Bello MD [Physician] - 10/28/23 3:00 pm Dawson Almodovar D.O. [Outside Practitioners] - Diet: Low Sodium (2gm) Ambulatory Orders: Complete Blood Count with Diff (Routine) Timeframe: 1 Month Location: Determined by Patient Ordered By: Mary Lou Dyer Complete Blood Count with Diff (Routine) Timeframe: 6 Weeks Location: Determined by Patient Ordered By: Mary Lou Dyer Complete Blood Count with Diff (Routine) Timeframe: 2 Weeks Location: Determined by Patient Ordered By: Mary Lou Dyer Renal Function Panel (Routine) Timeframe: 2 Weeks Location: Determined by Patient Ordered By: Mary Lou Dyer Renal Function Panel (Routine) Timeframe: 1 Month Location: Determined by Patient Ordered By: Mary Lou Dyer Renal Function Panel (Routine) Timeframe: 6 Weeks Location: Determined by Patient Ordered By: Mary Lou Dyer Urine rflx Micros+Cult if Ind (Routine) Timeframe: 2 Weeks Location: Determined by Patient Ordered By: Mary Lou Dyer Urine rflx Micros+Cult if Ind (Routine) Timeframe: 1 Month Location: Determined by Patient Ordered By: Mary Lou Dyer Urine rflx Micros+Cult if Ind (Routine) Timeframe: 6 Weeks Location: Determined by Patient Ordered By: Mary Lou Dyer Addtl Attending Provider Instructions: You were admitted to the hospital for swelling in your legs, abdomen, face, and hands. Your blood pressure was also elevated at that time, but has since improved. You were found to have nephrotic syndrome and we began treatment with steroids. At this point your kidney function has stabilized and is even beginning to improve. We had a discussion about your goals of care and decided on discharging you home with hospice in order to spend time with your loved ones in a more comfortable place. There is a good chance that your kidney function will continue to improve. I have ordered labs to be done every two weeks for the next six weeks. Further orders will need to be ordered by either your PCP or Dr. Bello. Please reach out to Dr. Almodovar's office about arranging home lab draws if possible. Otherwise you can take the lab slip to whatever lab is convenient for you. I have 'ed Dr Alvin Almodovar (PCP) and Dr. Bello (Kidney Doctor) on all the labs as well. Ideally you would follow up with Dr. Almodovar within the next two weeks and Dr. Bello within the next month. We will continue with a long steroid taper decreasing by 10 mg every month. You will take 60 mg (6 tabs) daily for the next month. Then decrease to 50 mg (5 tabs) daily for the following month. Then 40 mg for a month and so on and so forth. Completion of taper to be determined by Dr. Bello on an outpatient basis. Start: Prednisone 60 mg (6 tabs) daily for the next month, decrease by 10 mg monthly Hydralazine 25 mg three times daily Labetalol 200 mg twice a day Pantoprazole 40 mg in the morning Bactrim 1 tab daily Stop: losartan-HCTZ 100-25 mg torsemide 40 mg A discharge summary will be sent to your primary care physician to ensure continuity of care. Please bring this discharge summary with you to your next office appointment so that your provider can review it at that time. Follow-up appointments: Make a follow-up appointment with your PCP within the next week. It is very important that you follow up with them shortly after discharge from the hospital. Make a follow up appointment with the press supervisor (Dr. Bello's office) in the next few weeks. Keep all your follow-up appointments as already scheduled. If you cannot make an appointment, notify your provider. Medications: Your medication list has been reviewed and reconciled upon discharge to ensure accuracy and continuity of care. An updated list of all your medications is in cluded with your hospital discharge paperwork. Please review this list closely, and make note of any changes. Take your medications as instructed; do not skip a dose of your medicines. Make sure all of your doctors know every medicine you are taking (including [id number] medicines, vitamins, and supplements). Call your primary care provider before taking any new medicines (including over- the-counter medicines, vitamins, and supplements), because some of these may interact with your current medications, or may make your symptoms worse. Tell your primary care provider if you cannot afford your medications. CALL 911 OR GO TO THE EMERGENCY DEPARTMENT if you experience any of the following: Sudden, severe abdominal pain or nausea/vomiting Severe chest pain, or chest pain that radiates (moves) to your jaw or arm Sudden, severe shortness of breath or difficulty breathing Thank you for allowing us to participate in your care Pending Studies at Discharge: Yes Stand-Alone Forms: [facility], Smoking Cessation Medications and DC Order Prescriptions: New labetalol 200 mg Tablet 200 mg PO BID Qty: 60 0RF polyethylene glycol 3350 [Miralax] 17 gram Powder In Packet 17 g PO DAILY PRNQty: 0 0RF sulfamethoxazole-trimethoprim [Bactrim] 400-80 mg Tablet 1 tab PO DAILY Qty: 30 0RF miconazole nitrate [Desenex] 2 % Powder 1 applic EXT PRN PRN (Reason: rash) Qty: 500 0RF hydralazine 25 mg Tablet 25 mg PO TID Qty: 90 0RF pantoprazole 40 mg Tablet,Delayed Release (Dr/Ec) 40 mg PO QAM Qty: 30 0RF prednisone 10 mg tablet 10 mg PO DIRECTED Qty: 180 0RF Rx Instructions: Take 60 mg (6 tabs) daily Continued aspirin 81 mg 81 mg PO DAILY citalopram 20 mg tablet 20 mg PO DAILY Vitamin D3 5,000 units 5,000 unit PO DAILY vitamin B complex 1 tab 1 tab PO DAILY Discontinued torsemide 20 mg tablet 40 mg PO DAILY losartan-hydrochlorothiazide 100-25 mg tablet 1 tab PO DAILY Discharge Orders: Discharge Order (Routine); Ordered 10/17/23 Ordered By: Mary Lou Casillas/Other Patient Handouts: Urinary Catheter Bag Empty Clean, Indwelling Uri nary Catheter Dc Admission Data Admit Date/Time: 10/11/23 01:05 Attending Provider: Oma Wong Admit Provider: Melita Lopez Primary Care Provider: PCP,NO Other Providers: Melita Lopez; Mir Inman Other Interventions: Discharge Summary Assessment (RN) Last Done: 10/17/23 13:35 Supervising Physician Co-Signing Physician Notes I personally examined the patient and verified trujillo points of history and exam, discussed case, and agree with decision making and plan documented by Dr. Dyer. Primary team reviewed recommendations with nephrology prior to meeting with patient today. Patient not interested in renal biopsy or dialysis at this time, would like to avoid any medically aggressive treatment or diagnostics, would like to return home for hospice approach. Recommendations were made for her to remain on prednisone 60 mg daily as kidney function seems to be improving with steroid use, patient will be on Bactrim daily while on steroid therapy. Labs including renal function, CBC, urine protein creatinine ratio recommended twice weekly by nephrology. We discussed the chance of renal improvement, awaiting labs for further workup of ROMY. Patient and her daughter understanding. Resident Activity Tracking Resident Involvement: Resident Care Provided Care Provided: Adult Hospital Medicine
[2023-10-18 08:22] LABS: Abnormal Protein Band 1 DNR mg/24 h (NONE DETECTED); Abnormal Protein Band 2 DNR mg/24 h (NONE DETECTED); Abnormal Protein Band 3 DNR mg/24 h (NONE DETECTED); Creatinine, 24 hr Urine 1.31 g/24 h (0.50-2.15); Protein, Urine 24 Hour 14739 mg/24 h (<150); Ur Protein/Creatinine Rat mg/g 11260 mg/g creat (<150)
[2023-10-23 17:42] LABS: ANCA Screen Negative (Negative); Anti Nuclear Antibody Screen Positive (Negative); Anti-Glom Basement Antibody <1.0 AI (<1.0); Complement C3 109 mg/dL; Complement Total(CH50) 60 U/mL (31-60); Myeloperoxidase Ab <1.0 AI (<1.0); Proteinase-3 AB <1.0 AI (<1.0)
== END 2023-10-17 16:11 | disposition home or self-care (01) | DRG 700 ==
LOC: ED 19:49 → EDINP 10-11 01:05 → SUATTDRO 10-11 01:05 → 2N 10-11 03:12 → 3W 10-12 22:43 → 3E 10-16 18:23